=== PATIENT | female | born 1950 | race Caucasian/White ===

== ENCOUNTER → 2018-02-05 09:23 | Outpatient (CLI) | payer MEDICARE, MEDICAID, SELFPAY ==
[2018-02-05 10:15] LABS: Abs Immature Grans 0.02 k/cumm (0.0-0.09); Absolute Basophil Count 0.06 k/cumm (0.0-0.2); Absolute Eosinophil Count 0.42 k/cumm (0.0-0.7); Absolute Lymphocyte Count 2.98 k/cumm (1.2-3.4); Absolute Monocyte Count 0.66 k/cumm (0.11-0.7); Absolute Neutrophil Count 7.72 k/cumm (1.2-6.7); Basophils % 0.5; Eosinophils % 3.5; HCT 40.1 % (36.0-46.0); HGB 12.9 g/dL (12.0-15.5); Immature Grans % 0.2; Lymphocytes % 25.1; Mean Corp. HGB Concentration 32.2 g/dL (32.0-36.0); Mean Corpuscular Hemoglobin 25.7 pg (27.0-33.0); Mean Corpuscular Volume 79.9 fL (80-95); Mean Platelet Volume 9.9 fL (8.0-11.0); Monocytes % 5.6; Neutrophils % 65.1; Platelet Count 277 x1000/uL (130-400); RBC 5.02 m/cumm (4.00-5.20); RBC Distribution Width 15.3 % (11.7-14.6); White Blood Cell Count 11.86 k/cumm (4.4-10.8)
[2018-02-05 10:45] LABS: C-Reactive Protein 0.45 mg/dL (0.0-0.3)
[2018-02-05 11:08] LABS: ESR 18 MM/HR (0-30)
== END ==
PROVIDERS: PCP Nurse Practitioner Family; Visit Provider Orthopaedic Surgery
DX: T84.84XA Pain due to internal orthopedic prosthetic devices, implants and grafts, initial encounter (principal); M25.562 Pain in left knee; Z96.652 Presence of left artificial knee joint
CPT/HCPCS: 36415; 85652; 99214; 85025; 86140

== ENCOUNTER → 2018-02-05 10:30 | Outpatient (CLI) | payer MEDICARE, MEDICAID, SELFPAY | PROVIDERS: PCP Nurse Practitioner Family; Visit Provider Orthopaedic Surgery | DX: T84.84XA Pain due to internal orthopedic prosthetic devices, implants and grafts, initial encounter (principal); M25.562 Pain in left knee; Z96.652 Presence of left artificial knee joint ==

== ENCOUNTER → 2018-02-21 01:06 | Outpatient (CLI) | payer MEDICARE, MEDICAID, SELFPAY ==
--- NOTE | 2018-02-21 09:00 | DI.REPORT_ITS ---
SYMPTOMS/DIAGNOSIS: PAINFUL LT TKR 3 PHASE BONE SCAN: Three phase bone scan was performed according to the usual protocol with injection of 25.6 millicuries of Technetium 99 labeled Methylene Diphosphonate. Flow, immediate and delayed images were obtained of the knees along with whole body delayed scan. The whole body delayed scan shows a small focal area of increased uptake associated with the mid cervical spine on the left laterally and this appears to correspond with prominent osteophyte formations at this site seen on chest radiograph of 10/10/17. No other significantly increased uptake in the bones apart from the region of the left knee. Flow images of the knees are unremarkable. Immediate images show some asymmetry of uptake in left knee as compared to the right. The patient has reportedly a painful TKR on the left. Delayed images show increased uptake in the femur, patella and tibia which may be slightly more prominent than is typically seen with a long standing TKR. However I would note that increased uptake of this intensity could be seen in a normal joint replacement. CONCLUSION: Indeterminate findings involving questioned mildly increased uptake associated with left TKR. No suspicious remote findings.
== END ==
PROVIDERS: PCP Nurse Practitioner Family; Visit Provider Orthopaedic Surgery
DX: M25.562 Pain in left knee (principal); Z96.652 Presence of left artificial knee joint
CPT/HCPCS: 78315

== ENCOUNTER → 2018-02-26 09:15 | Outpatient (CLI) | payer MEDICARE, MEDICAID, SELFPAY | PROVIDERS: PCP Nurse Practitioner Family; Visit Provider Orthopaedic Surgery | DX: T84.84XD Pain due to internal orthopedic prosthetic devices, implants and grafts, subsequent encounter (principal); Z96.652 Presence of left artificial knee joint | CPT/HCPCS: 99213 ==

== ENCOUNTER 2018-03-24 11:56 | Emergency (ER) | payer MEDICARE, MEDICAID, SELFPAY ==
[2018-03-24] VITALS (7 sets, daily range): BP systolic 124–130; BP diastolic 58–96; PULSE 86–99; RESP 8–22; TEMP 36.1; O2SAT 97–100
--- NOTE | 2018-03-24 12:00 | DI.RAD_ITS ---
SYMPTOM/DIAGNOSIS: SOB PA AND LATERAL CHEST: Comparison is made with 10/10/17. Heart size and pulmonary vasculature are within normal limits. The lungs are clear. No effusions or pneumothoraces are identified. Degenerative changes are seen in the spine. IMPRESSION: No acute pulmonary process.
--- NOTE | 2018-03-24 12:02 | W.ED.GENAD ---
Discharge Plan Disposition Patient Disposition: HOME Condition: Improving Discharge Details Chief Complaint: SOB Clinical Impression: Mild shortness of breath Primary Care Provider: Breanna Roque ED Provider: Modesto Yanes Home Meds and New Rx's Prescriptions: Continue glyburide-metformin 1 EACH tablet 500 tab-cap PO BID RF: 0 albuterol sulfate [ProAir HFA] 8.5 GM HFA aerosol inhaler 1 puff Inhalation Q4H PRN RF: 0 cyanocobalamin (vitamin B-12) [Vitamin B-12] 500 MCG tablet extended release 500 mcg PO DAILY RF: 0 lisinopril 40 MG tablet 40 mg PO DAILY RF: 0 glucosamine sulfate 2KCl 1,000 MG tablet 500 mg PO DAILY RF: 0 calcium carbonate-vitamin D3 1 EACH tablet 1 ea PO BID RF: 0 No Action quetiapine 100 MG tablet 100 mg PO DAILY RF: 0 pantoprazole 40 MG tablet,delayed release (DR/EC) 40 mg PO DAILY RF: 0 simvastatin 40 MG tablet 40 mg PO HS RF: 0 naproxen sodium [Aleve] 220 mg Capsule 2 tab PO PRN PRNRF: 0 Discharge Instructions Instructions: Dyspnea (ED) Additional Instructions: Return if you develop a fever, productive cough, or any other concerns. Continue regular medications. Home to rest today. Please follow-up with regular doctor this week if you have recurrent symptoms Medical Decision Making 59-year-old female with previous history of use of bronchodilators, presents with shortness of breath over hours time today. It is not associated with chest pain, fever, cough. She has otherwise recently been well. She is mildly anxious on initial presentation. Vital signs are unremarkable with normal oxygenation and she is speaking in full sentences IV placed, screening labs, chest x-ray, EKG obtained. Patient given DuoNeb updraft. Patient's chest x-ray is without acute findings Labs reveal chronically elevated white blood cell count, today 12. Her chemistries are unrevealing, she has unremarkable troponin and BNP. She is slightly hypomagnesemic at 1.5. Improved in the emergency department, no signs of active ongoing illness, she will benefit from oral supplementation of her low magnesium. Appropriate for discharge to home, stable and improved. ECG Data Attestation: I personally reviewed and interpreted this ECG (s) as follows: Interpretation: Normal sinus rhythm, the rate is 90, QRS is narrow, no ST segment elevation, low voltage HPI General Mode of arrival: EMS. Date/Time Provider Initiated Documentation: 03/24/18 12:11. Limitations to Documentation: no limitations. Information obtained by: patient and EMS. History of Present Illness 67 year old F presents to the emergency department with the chief complaint of Shortness of breath, described as moderate, Quality is described as constant, and is localized to the chest. Patient started experiencing this hour(s) and it has been constant. No relieving factors improve symptom(s), No exacerbating factors reported . Patient notes no other symptoms.; denies chest pain, cough, diaphoresis and nausea/vomiting. Patient did receive the following treatments prior to arrival, none HPI Narrative: 59-year-old female complains of hours of constant shortness of breath that began gradually early this morning. She denies any associated cough or fever. She denies chest pain. She was brought via EMS with an IV placement but no other interventions Related Data Home Medications Medication Instructions Recorded Confirmed cyanocobalamin (vitamin B-12) 500 mcg PO DAILY 02/20/13 03/24/18 [Vitamin B-12] glucosamine sulfate 2KCl 500 mg PO DAILY 02/20/13 03/24/18 lisinopril 40 mg PO DAILY 02/20/13 03/24/18 pantoprazole 40 mg PO DAILY 02/20/13 11/08/17 albuterol sulfate [ProAir HFA] 1 puff INHALATION Q4H PRN inhaler 09/22/16 03/24/18 glyburide-metformin 500 tab-cap PO BID tab-cap 09/22/16 03/24/18 quetiapine 100 mg PO DAILY 09/22/16 11/08/17 calcium carbonate-vitamin D3 1 ea PO BID 10/10/17 03/24/18 simvastatin 40 mg PO HS 10/10/17 03/24/18 naproxen sodium [Aleve] 2 tab PO PRN PRN 03/24/18 03/24/18 Allergies Allergy/AdvReac Type Severity Reaction Status Date / Time thiopental sodium Allergy Skin Rash Unverified 03/24/18 13:22 [From Pentothal] Review of Systems Review of Systems 8 systems reviewed and otherwise negative [facility] Medical History Diverticulitis of large intestine Restless legs Social History Smoking/Tobacco Use Status: Former Tobacco Use Surgical History bladder suspension for incontinence Abdominal hysterectomy (~1979) Arthroplasty of knee Cholecystectomy Extraction of cataract Oophrectomy, Both (04/09/13) Exam Narrative Exam Narrative: GEN: awake, alert, oriented 3. Pleasant, well groomed, interactive, mildly anxious. HEAD: Normocephalic, atraumatic ENT: Mucous membranes moist, oropharynx unremarkable, External ear exam unremarkable EYES: PERRL, EOMI NECK: Full ROM, no GALLO, no menigismus CHEST/RESP: Nontender, intermittent to auscultation bilateral, no rhonchi/rales CARDIOVASCULAR: RRR, no murmur, rub yusuf. 2+ Rad pulse bilateral ABDOMEN: Soft, nontender, no mass. +Bowel sounds EXT: Full ROM, no edema, no rash Neuro: Grossly normal neurologic exam, conversant, interactive. Psych: Speech fluent, thoughts congruent, affect mildly anxious
--- NOTE | 2018-03-24 12:05 | ED.GENADUL_ITS ---
Discharge Plan Disposition Patient Disposition: HOME Condition: Improving Discharge Details Chief Complaint: SOB Clinical Impression: Mild shortness of breath Primary Care Provider: Breanna Roque ED Provider: Modesto Yanes Home Meds and New Rx's Prescriptions: Continue glyburide-metformin 1 EACH tablet 500 tab-cap PO BID RF: 0 albuterol sulfate [ProAir HFA] 8.5 GM HFA aerosol inhaler 1 puff Inhalation Q4H PRN RF: 0 cyanocobalamin (vitamin B-12) [Vitamin B-12] 500 MCG tablet extended release 500 mcg PO DAILY RF: 0 lisinopril 40 MG tablet 40 mg PO DAILY RF: 0 glucosamine sulfate 2KCl 1,000 MG tablet 500 mg PO DAILY RF: 0 calcium carbonate-vitamin D3 1 EACH tablet 1 ea PO BID RF: 0 No Action quetiapine 100 MG tablet 100 mg PO DAILY RF: 0 pantoprazole 40 MG tablet,delayed release (DR/EC) 40 mg PO DAILY RF: 0 simvastatin 40 MG tablet 40 mg PO HS RF: 0 naproxen sodium [Aleve] 220 mg Capsule 2 tab PO PRN PRNRF: 0 Discharge Instructions Instructions: Dyspnea (ED) Additional Instructions: Return if you develop a fever, productive cough, or any other concerns. Continue regular medications. Home to rest today. Please follow-up with regular doctor this week if you have recurrent symptoms Medical Decision Making 59-year-old female with previous history of use of bronchodilators, presents with shortness of breath over hours time today. It is not associated with chest pain, fever, cough. She has otherwise recently been well. She is mildly anxious on initial presentation. Vital signs are unremarkable with normal oxygenation and she is speaking in full sentences IV placed, screening labs, chest x-ray, EKG obtained. Patient given DuoNeb updraft. Patient's chest x-ray is without acute findings Labs reveal chronically elevated white blood cell count, today 12. Her chemistries are unrevealing, she has unremarkable troponin and BNP. She is slightly hypomagnesemic at 1.5. Improved in the emergency department, no signs of active ongoing illness, she will benefit from oral supplementation of her low magnesium. Appropriate for discharge to home, stable and improved. ECG Data Attestation: I personally reviewed and interpreted this ECG (s) as follows: Interpretation: Normal sinus rhythm, the rate is 90, QRS is narrow, no ST segment elevation, low voltage HPI General Mode of arrival: EMS . Date/Time Provider Initiated Documentation: 03/24/18 12:11 . Limitations to Documentation: no limitations . Information obtained by: patient and EMS . History of Present Illness 67 year old F presents to the emergency department with the chief complaint of Shortness of breath, described as moderate, Quality is described as constant , and is localized to the chest. Patient started experiencing this hour(s) and it has been constant. No relieving factors improve symptom(s), No exacerbating factors reported . Patient notes no other symptoms.; denies chest pain, cough, diaphoresis and nausea/vomiting. Patient did receive the following treatments prior to arrival, none HPI Narrative: 59-year-old female complains of hours of constant shortness of breath that began gradually early this morning. She denies any associated cough or fever. She denies chest pain. She was brought via EMS with an IV placement but no other interventions Related Data Home Medications Medication Instructions Recorded Confirmed cyanocobalamin (vitamin B-12) 500 mcg PO DAILY 02/20/13 03/24/18 [Vitamin B-12] glucosamine sulfate 2KCl 500 mg PO DAILY 02/20/13 03/24/18 lisinopril 40 mg PO DAILY 02/20/13 03/24/18 pantoprazole 40 mg PO DAILY 02/20/13 11/08/17 albuterol sulfate [ProAir HFA] 1 puff INHALATION Q4H PRN inhaler 09/22/1603/24 glyburide-metformin 500 tab-cap PO BID tab-cap 09/22/16 03/24/18 quetiapine 100 mg PO DAILY 09/22/16 11/08/17 calcium carbonate-vitamin D3 1 ea PO BID 10/10/17 03/24/18 simvastatin 40 mg PO HS 10/10/17 03/24/18 naproxen sodium [Aleve] 2 tab PO PRN PRN 03/24/18 03/24/18 Allergies Allergy/AdvReac Type Severity Reaction Status Date / Time thiopental sodium Allergy Skin Rash Unverified 03/24/18 13:22 [From Pentothal] Review of Systems Review of Systems 8 systems reviewed and otherwise negative [facility] Medical History Diverticulitis of large intestine Restless legs Social History Smoking/Tobacco Use Status: Former Tobacco Use Surgical History bladder suspension for incontinence Abdominal hysterectomy (~1979) Arthroplasty of knee Cholecystectomy Extraction of cataract Oophrectomy, Both (04/09/13) Exam Narrative Exam Narrative: GEN: awake, alert, oriented 3. Pleasant, well groomed, interactive, mildly anxious. HEAD: Normocephalic, atraumatic ENT: Mucous membranes moist, oropharynx unremarkable, External ear exam unremarkable EYES: PERRL, EOMI NECK: Full ROM, no GALLO, no menigismus CHEST/RESP: Nontender, intermittent to auscultation bilateral, no rhonchi/rales CARDIOVASCULAR: RRR, no murmur, rub yusuf. 2+ Rad pulse bilateral ABDOMEN: Soft, nontender, no mass. +Bowel sounds EXT: Full ROM, no edema, no rash Neuro: Grossly normal neurologic exam, conversant, interactive. Psych: Speech fluent, thoughts congruent, affect mildly anxious
[2018-03-24] MEDS: Albuterol/Ipratropium 3 ML UPD VIAL UPD (12:11)
[2018-03-24 12:29] LABS: Abs Immature Grans 0.04 k/cumm (0.0-0.09); Absolute Basophil Count 0.03 k/cumm (0.0-0.2); Absolute Eosinophil Count 0.15 k/cumm (0.0-0.7); Absolute Lymphocyte Count 2.48 k/cumm (1.2-3.4); Absolute Monocyte Count 0.68 k/cumm (0.11-0.7); Absolute Neutrophil Count 9.41 k/cumm (1.2-6.7); Basophils % 0.2; Eosinophils % 1.2; HCT 35.2 % (36.0-46.0); HGB 11.2 g/dL (12.0-15.5); Immature Grans % 0.3; Lymphocytes % 19.4; Mean Corp. HGB Concentration 31.8 g/dL (32.0-36.0); Mean Corpuscular Hemoglobin 25.5 pg (27.0-33.0); Mean Platelet Volume 9.8 fL (8.0-11.0); Monocytes % 5.3; Neutrophils % 73.6; Platelet Count 246 x1000/uL (130-400); White Blood Cell Count 12.78 k/cumm (4.4-10.8)
[2018-03-24 13:00] LABS: ALT 20 U/L (12-78); AST 15 U/L (15-37); Albumin 3.7 g/dL (3.4-5.0); Alkaline Phosphatase 86 U/L (46-116); Anion Gap 11.4 mmol/L (3-11); BUN 17 mg/dL (7-18); Bilirubin, Total 0.3 mg/dL (0.2-1.0); CO2 25.6 mmol/L (21.0-32.0); CREATININE 0.78 mg/dL (0.55-1.02); Calcium 8.8 mg/dL (8.5-10.1); Chloride 105 mmol/L (98-107); Glucose 96 mg/dL (70-100); Magnesium 1.5 mg/dL (1.8-2.4); NT-proBNP 117 pg/mL; Potassium 3.8 mmol/L (3.5-5.1); Sodium 142 mmol/L (136-145); Total Protein 6.8 g/dL (6.4-8.2)
[2018-03-24 13:03] LABS: Troponin I < 0.02 ng/mL (0.00-0.06)
[2018-03-24] MEDS: Magnesium Oxide 400 MG TAB PO (13:21)
--- NOTE | 2018-03-24 13:21 | DI.VRAD_ITS ---
EXAM: XR Chest, 2 Views EXAM DATE/TIME: 03/24/2018 12:02 PM CLINICAL HISTORY: 67 years old, female; Signs and symptoms; Shortness of breath; Patient HX: SOB TECHNIQUE: XR of the chest, 2 views. COMPARISON: CR CHEST 2 VIEWS PA,LAT 10/10/2017 10:59 PM FINDINGS: Lungs: Unremarkable. No consolidation. Pleural space: Unremarkable. No pleural effusion. No pneumothorax. Heart/Mediastinum: Unremarkable. No cardiomegaly. Bones/joints: Degenerative changes in the thoracic spine IMPRESSION: No acute process Dictated and Authenticated by: Alex Yang MD. Ordering:HELADIO HO MD
== END 2018-03-24 13:34 | disposition home or self-care (01) ==
PROVIDERS: Emergency Provider Emergency Medicine; PCP Nurse Practitioner Family
DX: R06.02 Shortness of breath (principal); E83.42 Hypomagnesemia
CPT/HCPCS: 36415; 80053; 93005; 94640; 99284; 71046; 81003; 83735; 83880; 84484; 85025; 93010; J7620

== ENCOUNTER 2018-04-15 11:11 | Outpatient (REF) | payer MEDICARE, MEDICAID, SELFPAY ==
[2018-04-15 19:04] LABS: Hemoglobin A1C 6.8 % (4.5-6.2)
== END 2018-04-15 11:31 ==
LOC: NCHCN 11:11
PROVIDERS: PCP Nurse Practitioner Family; Visit Provider Nurse Practitioner Family
DX: E11.9 Type 2 diabetes mellitus without complications (principal)
CPT/HCPCS: 83036

== ENCOUNTER 2018-04-22 15:17 | Outpatient (REF) | payer MEDICARE, MEDICAID, SELFPAY ==
[2018-04-22 18:23] LABS: Magnesium 1.6 mg/dL (1.8-2.4)
[2018-04-22 18:33] LABS: Abs Immature Grans 0.03 k/cumm (0.0-0.09); Absolute Basophil Count 0.04 k/cumm (0.0-0.2); Absolute Eosinophil Count 0.24 k/cumm (0.0-0.7); Absolute Lymphocyte Count 3.15 k/cumm (1.2-3.4); Absolute Monocyte Count 0.68 k/cumm (0.11-0.7); Absolute Neutrophil Count 6.76 k/cumm (1.2-6.7); Basophils % 0.4; Eosinophils % 2.2; HCT 37.9 % (36.0-46.0); HGB 12.2 g/dL (12.0-15.5); Immature Grans % 0.3; Lymphocytes % 28.9; Mean Corp. HGB Concentration 32.2 g/dL (32.0-36.0); Mean Corpuscular Hemoglobin 25.6 pg (27.0-33.0); Mean Corpuscular Volume 79.6 fL (80-95); Mean Platelet Volume 10.3 fL (8.0-11.0); Monocytes % 6.2; Platelet Count 270 x1000/uL (130-400); RBC 4.76 m/cumm (4.00-5.20); RBC Distribution Width 14.9 % (11.7-14.6)
== END 2018-04-22 15:37 ==
LOC: NCHCN 15:17
PROVIDERS: PCP Nurse Practitioner Family; Visit Provider Nurse Practitioner Family
DX: E83.42 Hypomagnesemia (principal); D64.9 Anemia, unspecified; D72.829 Elevated white blood cell count, unspecified
CPT/HCPCS: 83735; 85025

== ENCOUNTER 2018-06-02 03:46 | Emergency (ER) | payer MEDICARE, MEDICAID, SELFPAY ==
[2018-06-02] VITALS (12 sets, daily range): BP systolic 113–158; BP diastolic 59–96; PULSE 75–84; RESP 1–26; TEMP 36.9; O2SAT 94–100
--- NOTE | 2018-06-02 04:02 | DI.COMBO_ITS ---
SYMPTOM/DIAGNOSIS: SOB PE CHEST CTA: CT angiography was performed with multi slice acquisition and multi planar and 3D reconstruction. CT scan of the chest was performed according to the pulmonary embolus protocol. There is no evidence of a pulmonary embolus. The thoracic aorta is of normal caliber. No aneurysmal dilatation or dissection is present. Heart size is within normal limits. No significant pericardial effusion is seen. No evidence of right ventricular dysfunction is present. No significant mediastinal, hilar or axillary adenopathy is present. No pleural effusion or pneumothorax is identified. The lungs are clear. The tracheobronchial tree is unremarkable. Upper abdominal images show patient is status post cholecystectomy. Left renal cyst is noted. Degenerative changes are seen in the spine. IMPRESSION: No evidence of an acute pulmonary embolus, thoracic aortic dissection or aneurysm. PA AND LATERAL CHEST: Comparison is made with 03/24/18. The heart is normal in size. The lungs are clear. The mediastinal structures and pleura appear intact. CONCLUSION: Normal chest.
--- NOTE | 2018-06-02 04:04 | W.ED.GENAD ---
Discharge Plan Disposition Patient Disposition: HOME Condition: Good Discharge Details Chief Complaint: RespSymp Clinical Impression: Dyspnea Primary Care Provider: Breanna Roque ED Provider: Benson Harper Home Meds and New Rx's Prescriptions: Continue quetiapine 100 MG tablet 100 mg PO DAILY RF: 0 glyburide-metformin 1 EACH tablet 500 tab-cap PO BID RF: 0 albuterol sulfate [ProAir HFA] 8.5 GM HFA aerosol inhaler 1 puff Inhalation Q4H PRN RF: 0 cyanocobalamin (vitamin B-12) [Vitamin B-12] 500 MCG tablet extended release 500 mcg PO DAILY RF: 0 pantoprazole 40 MG tablet,delayed release (DR/EC) 40 mg PO DAILY RF: 0 lisinopril 40 MG tablet 40 mg PO DAILY RF: 0 glucosamine sulfate 2KCl 1,000 MG tablet 500 mg PO DAILY RF: 0 simvastatin 40 MG tablet 40 mg PO HS RF: 0 calcium carbonate-vitamin D3 1 EACH tablet 1 ea PO BID RF: 0 naproxen sodium [Aleve] 220 mg Capsule 2 tab PO PRN PRNRF: 0 Discharge Instructions Instructions: Dyspnea (ED) Additional Instructions: Your workup tonight has been completely negative. There were no EKG changes. Laboratory studies are unremarkable and baseline. Chest x-ray and CT scan of the chest are negative. Your vital signs and oxygen saturation are normal. Please continue medications and use your inhaler as needed. Follow-up with your primary care next week if continued feeling of shortness of breath. Return to ED if you develop fever, chest pain, worsening shortness of breath, other concerns. Referrals: Breanna Roque [Primary Care Provider] - Medical Decision Making Patient presenting to ED with shortness of breath. Room air saturations are normal. She is a little hypertensive but otherwise vital signs are normal. Lungs are clear. She does have fairly pale conjunctiva. She also feels weak in the legs so anemia is a possibility. Doubt PE as she has no leg pain or swelling and no tachycardia but will check d-dimer. EKG is sinus rhythm at a rate of 80. There are no acute ST changes noted. Will place IV and get labs, follow-up on chest x-ray, reevaluate. 5 AM?patient continues to feel short of breath despite DuoNeb treatment. Workup so far negative. She is mildly anemic only and not anything worse than baseline. Troponin and BNP are negative. Chemistries and kidney function are normal. Age-adjusted d-dimer is negative. Chest x-ray is clear. As I have no other etiology for her complaint of shortness of breath despite a negative age-adjusted d-dimer I am going to proceed with CTA of the chest to rule out PE. 5:45 AM?CTA of the chest is negative. There is no PE, dissection, consolidation, effusion, or edema. Patient actually seems to be resting comfortably at this point. Workup has been negative. I do not think she needs a second troponin as she has had 8 hours of symptoms prior to coming in. At no point did she have chest pain. She is requesting coffee and breakfast before discharge. She can follow-up with primary care next week if continued feeling of shortness of breath. Lab Data Lab results reviewed: Yes I reviewed the patient's lab results. ECG Data Attestation: I personally reviewed and interpreted this ECG (s) as follows: Prior ECG tracings: available for review Interpretation: Sinus rhythm at a rate of 80. No acute ST changes noted. No change from previous from March of this year. HPI General Mode of arrival: EMS. Date/Time Provider Initiated Documentation: 06/02/18 03:55. Limitations to Documentation: no limitations. Information obtained by: patient and EMS. HPI Narrative: Patient presents to ED by EMS for evaluation of shortness of breath. Patient reports that it started while she was trying to put a bus together this evening. She has felt short of breath for the whole night and has not been able to sleep. She did try her inhalers with no help. She denies having any type of chest pain, pressure, tightness. She has no back pain. She has no pain with inspiration. She has had no fever or cough. She has no leg pain or swelling. Her legs feel weak to her. She has no abdominal pain, vomiting, diarrhea. She denies any black stool or bloody stool. Related Data Home Medications Medication Instructions Recorded Confirmed cyanocobalamin (vitamin B-12) 500 mcg PO DAILY 02/20/13 03/24/18 [Vitamin B-12] glucosamine sulfate 2KCl 500 mg PO DAILY 02/20/13 03/24/18 lisinopril 40 mg PO DAILY 02/20/13 03/24/18 pantoprazole 40 mg PO DAILY 02/20/13 11/08/17 albuterol sulfate [ProAir HFA] 1 puff INHALATION Q4H PRN inhaler 09/22/16 03/24/18 glyburide-metformin 500 tab-cap PO BID tab-cap 09/22/16 03/24/18 quetiapine 100 mg PO DAILY 09/22/16 11/08/17 calcium carbonate-vitamin D3 1 ea PO BID 10/10/17 03/24/18 simvastatin 40 mg PO HS 10/10/17 03/24/18 naproxen sodium [Aleve] 2 tab PO PRN PRN 03/24/18 03/24/18 Allergies Allergy/AdvReac Type Severity Reaction Status Date / Time thiopental sodium Allergy Skin Rash Unverified 06/02/18 03:57 [From Pentothal] General Stated Complaint: RespSymp LYNNETTE: 3 Review of Systems Constitutional Denies chills, Denies fever(s), Denies headache(s), Denies poor appetite and Reports weakness Eyes Denies change in vision and Denies eye pain ENT Denies otalgia, Denies facial pain, Denies headache(s), Denies nasal congestion, Denies sinus pain and Denies sore throat Cardiovascular Denies chest pain, Denies chest pain at rest, Denies diaphoresis, Denies syncope, Denies edema, Denies leg edema, Denies lightheadedness, Denies palpitations and Reports dyspnea Respiratory Denies chest congestion, Denies cough, Reports dyspnea and Denies wheezing Gastrointestinal Denies abdominal pain, Denies melena, Denies hematochezia, Denies diarrhea, Denies nausea, Denies vomiting and Denies hematemesis Genitourinary Denies hematuria, Denies dysuria, Denies pelvic pain and Denies flank pain Musculoskeletal Denies back pain, Denies arthralgias and Denies numbness Integumentary/Breasts Denies erythema and Denies rash Neurologic Denies syncope, Denies headache(s), Denies focal weakness, Denies numbness, Denies sensory deficit and Reports weakness Endocrine Denies palpitations Allergic/Immunologic Denies wheezing PFSH Asthma (Chronic) Diabetes mellitus (Chronic) HTN (hypertension) (Chronic) Hypercholesterolemia (Chronic) Diverticulitis of large intestine Restless legs bladder suspension for incontinence Abdominal hysterectomy (~1979) Arthroplasty of knee Cholecystectomy Extraction of cataract Oophrectomy, Both (04/09/13) Social History Smoking/Tobacco Use Status: Former Tobacco Use Exam Const General: cooperative, comfortable and no acute distress Orientation: alert and oriented x3 HENMT Head: normocephalic and atraumatic Mouth: moist mucous membranes Eyes Conjunctivae: conjunctival abnormality bilaterally pallor Neck Neck: normal visual inspection, trachea midline and supple Resp Effort & Inspection: normal respiratory effort Auscultation: clear to auscultation bilaterally Cardio Rate: regular rate Rhythm: regular rhythm Heart Sounds: S1 normal and S2 normal Pulses: radial pulses present GI Palpation: soft, not firm, no guarding and nontender Back/Spine/Pelvis Cervical Spine: cervical ROM normal Thoracic/Lumbar Spine: thoraco-lumbar ROM normal Skin General skin exam: no rashes or lesions noted Neuro General: alert, oriented x3, no focal motor deficits and CN's II-XI intact bilaterally Extrem General: normal to inspection, no clubbing, cyanosis or edema and no calf tenderness Course Vital Signs Temperature 98.4 F 06/02/18 03:46 Pulse 84 06/02/18 03:46 Respiratory Rate 24 06/02/18 03:46 Blood Pressure 158/59 H 06/02/18 03:46 Pulse Oximetry 100 06/02/18 03:46 Temperature 98.4 F 06/02/18 03:46 Temperature Source Temporal Artery Scan 06/02/18 03:46 Pulse 84 06/02/18 03:46 Respiratory Rate 24 06/02/18 03:46 Respiratory Effort Incrsd Work of Breathing 06/02/18 03:56 Respiratory Depth Shallow 06/02/18 03:56 Blood Pressure 158/59 H 06/02/18 03:46 Pulse Oximetry 100 06/02/18 03:46 Oxygen Delivery Method Room Air 06/02/18 03:46 Oxygen Flow Rate 0 06/02/18 03:46 Pain Level 0 06/02/18 03:46
--- NOTE | 2018-06-02 04:09 | ED.GENADUL_ITS ---
Discharge Plan Disposition Patient Disposition: HOME Condition: Good Discharge Details Chief Complaint: RespSymp Clinical Impression: Dyspnea Primary Care Provider: Breanna Roque ED Provider: Benson Harper Home Meds and New Rx's Prescriptions: Continue quetiapine 100 MG tablet 100 mg PO DAILY RF: 0 glyburide-metformin 1 EACH tablet 500 tab-cap PO BID RF: 0 albuterol sulfate [ProAir HFA] 8.5 GM HFA aerosol inhaler 1 puff Inhalation Q4H PRN RF: 0 cyanocobalamin (vitamin B-12) [Vitamin B-12] 500 MCG tablet extended release 500 mcg PO DAILY RF: 0 pantoprazole 40 MG tablet,delayed release (DR/EC) 40 mg PO DAILY RF: 0 lisinopril 40 MG tablet 40 mg PO DAILY RF: 0 glucosamine sulfate 2KCl 1,000 MG tablet 500 mg PO DAILY RF: 0 simvastatin 40 MG tablet 40 mg PO HS RF: 0 calcium carbonate-vitamin D3 1 EACH tablet 1 ea PO BID RF: 0 naproxen sodium [Aleve] 220 mg Capsule 2 tab PO PRN PRNRF: 0 Discharge Instructions Instructions: Dyspnea (ED) Additional Instructions: Your workup tonight has been completely negative. There were no EKG changes. Laboratory studies are unremarkable and baseline. Chest x-ray and CT scan of the chest are negative. Your vital signs and oxygen saturation are normal. Please continue medications and use your inhaler as needed. Follow-up with your primary care next week if continued feeling of shortness of breath. Return to ED if you develop fever, chest pain, worsening shortness of breath, other concerns. Referrals: Breanna Roque [Primary Care Provider] - Medical Decision Making Patient presenting to ED with shortness of breath. Room air saturations are normal. She is a little hypertensive but otherwise vital signs are normal. Lungs are clear. She does have fairly pale conjunctiva. She also feels weak in the legs so anemia is a possibility. Doubt PE as she has no leg pain or swelling and no tachycardia but will check d-dimer. EKG is sinus rhythm at a rate of 80. There are no acute ST changes noted. Will place IV and get labs, follow-up on chest x-ray, reevaluate. 5 AM?patient continues to feel short of breath despite DuoNeb treatment. Workup so far negative. She is mildly anemic only and not anything worse than baseline. Troponin and BNP are negative. Chemistries and kidney function are normal. Age-adjusted d-dimer is negative. Chest x-ray is clear. As I have no other etiology for her complaint of shortness of breath despite a negative age- adjusted d-dimer I am going to proceed with CTA of the chest to rule out PE. 5:45 AM?CTA of the chest is negative. There is no PE, dissection, consolidation , effusion, or edema. Patient actually seems to be resting comfortably at this point. Workup has been negative. I do not think she needs a second troponin as she has had 8 hours of symptoms prior to coming in. At no point did she have chest pain. She is requesting coffee and breakfast before discharge. She can follow-up with primary care next week if continued feeling of shortness of breath. Lab Data Lab results reviewed: Yes I reviewed the patient's lab results. ECG Data Attestation: I personally reviewed and interpreted this ECG (s) as follows: Prior ECG tracings: available for review Interpretation: Sinus rhythm at a rate of 80. No acute ST changes noted. No change from previous from March of this year. HPI General Mode of arrival: EMS . Date/Time Provider Initiated Documentation: 06/02/18 03:55 . Limitations to Documentation: no limitations . Information obtained by: patient and EMS . HPI Narrative: Patient presents to ED by EMS for evaluation of shortness of breath. Patient reports that it started while she was trying to put a bus together this evening. She has felt short of breath for the whole night and has not been able to sleep. She did try her inhalers with no help. She denies having any type of chest pain, pressure, tightness. She has no back pain. She has no pain with inspiration. She has had no fever or cough. She has no leg pain or swelling. Her legs feel weak to her. She has no abdominal pain, vomiting, diarrhea. She denies any black stool or bloody stool. Related Data Home Medications Medication Instructions Recorded Confirmed cyanocobalamin (vitamin B-12) 500 mcg PO DAILY 02/20/13 03/24/18 [Vitamin B-12] glucosamine sulfate 2KCl 500 mg PO DAILY 02/20/13 03/24/18 lisinopril 40 mg PO DAILY 02/20/13 03/24/18 pantoprazole 40 mg PO DAILY 02/20/13 11/08/17 albuterol sulfate [ProAir HFA] 1 puff INHALATION Q4H PRN inhaler 09/22/1603/24 glyburide-metformin 500 tab-cap PO BID tab-cap 09/22/16 03/24/18 quetiapine 100 mg PO DAILY 09/22/16 11/08/17 calcium carbonate-vitamin D3 1 ea PO BID 10/10/17 03/24/18 simvastatin 40 mg PO HS 10/10/17 03/24/18 naproxen sodium [Aleve] 2 tab PO PRN PRN 03/24/18 03/24/18 Allergies Allergy/AdvReac Type Severity Reaction Status Date / Time thiopental sodium Allergy Skin Rash Unverified 06/02/18 03:57 [From Pentothal] General Stated Complaint: RespSymp LYNNETTE: 3 Review of Systems Constitutional Denies chills, Denies fever(s), Denies headache(s), Denies poor appetite and Reports weakness Eyes Denies change in vision and Denies eye pain ENT Denies otalgia, Denies facial pain, Denies headache(s), Denies nasal congestion , Denies sinus pain and Denies sore throat Cardiovascular Denies chest pain, Denies chest pain at rest, Denies diaphoresis, Denies syncope , Denies edema, Denies leg edema, Denies lightheadedness, Denies palpitations and Reports dyspnea Respiratory Denies chest congestion, Denies cough, Reports dyspnea and Denies wheezing Gastrointestinal Denies abdominal pain, Denies melena, Denies hematochezia, Denies diarrhea, Denies nausea, Denies vomiting and Denies hematemesis Genitourinary Denies hematuria, Denies dysuria, Denies pelvic pain and Denies flank pain Musculoskeletal Denies back pain, Denies arthralgias and Denies numbness Integumentary/Breasts Denies erythema and Denies rash Neurologic Denies syncope, Denies headache(s), Denies focal weakness, Denies numbness, Denies sensory deficit and Reports weakness Endocrine Denies palpitations Allergic/Immunologic Denies wheezing PFSH Asthma (Chronic) Diabetes mellitus (Chronic) HTN (hypertension) (Chronic) Hypercholesterolemia (Chronic) Diverticulitis of large intestine Restless legs bladder suspension for incontinence Abdominal hysterectomy (~1979) Arthroplasty of knee Cholecystectomy Extraction of cataract Oophrectomy, Both (04/09/13) Social History Smoking/Tobacco Use Status: Former Tobacco Use Exam Const General: cooperative, comfortable and no acute distress Orientation: alert and oriented x3 HENMT Head: normocephalic and atraumatic Mouth: moist mucous membranes Eyes Conjunctivae: conjunctival abnormality bilaterally pallor Neck Neck: normal visual inspection, trachea midline and supple Resp Effort & Inspection: normal respiratory effort Auscultation: clear to auscultation bilaterally Cardio Rate: regular rate Rhythm: regular rhythm Heart Sounds: S1 normal and S2 normal Pulses: radial pulses present GI Palpation: soft, not firm, no guarding and nontender Back/Spine/Pelvis Cervical Spine: cervical ROM normal Thoracic/Lumbar Spine: thoraco-lumbar ROM normal Skin General skin exam: no rashes or lesions noted Neuro General: alert, oriented x3, no focal motor deficits and CN's II-XI intact bilaterally Extrem General: normal to inspection, no clubbing, cyanosis or edema and no calf tenderness Course Vital Signs Temperature 98.4 F 06/02/18 03:46 Pulse 84 06/02/18 03:46 Respiratory Rate 24 06/02/18 03:46 Blood Pressure 158/59 H 06/02/18 03:46 Pulse Oximetry 100 06/02/18 03:46 Temperature 98.4 F 06/02/18 03:46 Temperature Source Temporal Artery Scan 06/02/18 03:46 Pulse 84 06/02/18 03:46 Respiratory Rate 24 06/02/18 03:46 Respiratory Effort Incrsd Work of Breathing 06/02/18 03:56 Respiratory Depth Shallow 06/02/18 03:56 Blood Pressure 158/59 H 06/02/18 03:46 Pulse Oximetry 100 06/02/18 03:46 Oxygen Delivery Method Room Air 06/02/18 03:46 Oxygen Flow Rate 0 06/02/18 03:46 Pain Level 0 06/02/18 03:46
[2018-06-02 04:26] LABS: Abs Immature Grans 0.03 k/cumm (0.0-0.09); Absolute Basophil Count 0.05 k/cumm (0.0-0.2); Absolute Monocyte Count 0.77 k/cumm (0.11-0.7); Absolute Neutrophil Count 8.31 k/cumm (1.2-6.7); Basophils % 0.4; Eosinophils % 1.7; HCT 34.6 % (36.0-46.0); HGB 11.3 g/dL (12.0-15.5); Immature Grans % 0.3; Lymphocytes % 20.9; Mean Corp. HGB Concentration 32.7 g/dL (32.0-36.0); Mean Corpuscular Hemoglobin 25.9 pg (27.0-33.0); Mean Corpuscular Volume 79.4 fL (80-95); Mean Platelet Volume 9.6 fL (8.0-11.0); Monocytes % 6.5; Neutrophils % 70.2; Platelet Count 245 x1000/uL (130-400); RBC 4.36 m/cumm (4.00-5.20); RBC Distribution Width 14.5 % (11.7-14.6); White Blood Cell Count 11.84 k/cumm (4.4-10.8)
[2018-06-02 04:33] LABS: Absolute Lymphocyte Count 2.47 k/cumm (1.2-3.4)
[2018-06-02 04:41] LABS: ALT 21 U/L (12-78); AST 16 U/L (15-37); Albumin 3.8 g/dL (3.4-5.0); Alkaline Phosphatase 93 U/L (46-116); Anion Gap 11.7 mmol/L (3-11); BUN 17 mg/dL (7-18); Bilirubin, Total 0.3 mg/dL (0.2-1.0); CO2 26.3 mmol/L (21.0-32.0); Calcium 8.9 mg/dL (8.5-10.1); Chloride 103 mmol/L (98-107); Glucose 145 mg/dL (70-100); Magnesium 1.7 mg/dL (1.8-2.4); Potassium 3.7 mmol/L (3.5-5.1); Sodium 141 mmol/L (136-145); Total Protein 7.2 g/dL (6.4-8.2)
[2018-06-02 04:45] LABS: Troponin I < 0.02 ng/mL (0.00-0.06)
[2018-06-02] MEDS: Albuterol/Ipratropium 3 ML UPD VIAL UPD (04:45)
[2018-06-02 04:46] LABS: NT-proBNP 19 pg/mL
--- NOTE | 2018-06-02 04:56 | DI.VRAD_ITS ---
EXAM: XR Chest, 2 Views EXAM DATE/TIME: 06/02/2018 4:33 AM CLINICAL HISTORY: 67 years old, female; Pain; Other: SOB TECHNIQUE: XR of the chest, 2 views. COMPARISON: CR XR CHEST 2V PA LATERAL 03/24/2018 12:37 PM FINDINGS: Lungs: Clear lungs. Pleural space: No pneumothorax. No sizable pleural effusion. Heart/Mediastinum: No cardiomegaly. Bones/joints: Unremarkable. IMPRESSION: Clear lungs. Dictated and Authenticated by: Khang Long MD. Ordering:TARYN BARKSDALE MD
[2018-06-02 04:58] LABS: D-Dimer 660 ng/mlFEU (<500)
[2018-06-02] MEDS: Omnipaque 350 MG/ML 100 ML BTL IJ (05:18)
--- NOTE | 2018-06-02 05:32 | DI.VRAD_ITS ---
EXAM: CT Angiography Chest With Intravenous Contrast EXAM DATE/TIME: 06/02/2018 5:02 AM CLINICAL HISTORY: 67 years old, female; Pain; Other: Shortness of breath TECHNIQUE: Axial computed tomographic angiography images of the chest with intravenous contrast using CT angiography protocol. Coronal and sagittal reformatted images were created and reviewed. MIP reconstructed images were created and reviewed. CONTRAST: 100 ml of omni 350 administered intravenously. COMPARISON: CR XR CHEST 2V PA LATERAL 06/02/2018 4:22 AM FINDINGS: Pulmonary arteries: No acute pulmonary embolus. Aorta: No aortic aneurysm. No aortic dissection. Lungs: No consolidation. No masses. Pleural space: Normal. No pneumothorax. No pleural effusion. Heart: No cardiomegaly. No pathologic pericardial effusion. Gallbladder and bile ducts: Cholecystectomy. Lymph nodes: Unremarkable. No enlarged lymph nodes. Bones/joints: Multilevel degenerative changes of the thoracic spine. No acute fracture. Soft tissues: Unremarkable. IMPRESSION: No acute pulmonary embolus. Dictated and Authenticated by: Khang Long MD. Ordering:TARYN BARKSDALE MD
== END 2018-06-02 06:07 | disposition home or self-care (01) ==
PROVIDERS: Emergency Provider Emergency Medicine; PCP Nurse Practitioner Family
DX: R06.00 Dyspnea, unspecified (principal); E11.9 Type 2 diabetes mellitus without complications; Z79.84 Long term (current) use of oral hypoglycemic drugs; I10 Essential (primary) hypertension
CPT/HCPCS: 36415; 71275; 80053; 82805; 86850; 86900; 86901; 93005; 94640; 96374; 99284; 99285; 71046; 83735; 83880; 84484; 85025; 85379; 93010; 99283; J2930; J3490; J7620

== ENCOUNTER 2018-06-02 22:34 | Emergency (ER) | payer MEDICARE, MEDICAID, SELFPAY ==
[2018-06-02] VITALS (11 sets, daily range): BP systolic 143–152; BP diastolic 60–132; PULSE 79–100; RESP 11–25; TEMP 36; O2SAT 94–98
--- NOTE | 2018-06-02 22:47 | W.ED.GENAD ---
Discharge Plan Disposition Patient Disposition: HOME Condition: Good Discharge Details Chief Complaint: SOB Clinical Impression: Physically well but worried, SOB (shortness of breath) Reason For Visit: JONI Primary Care Provider: Breanna Roque ED Provider: Hal Olmstead Home Meds and New Rx's Prescriptions: No Action quetiapine 100 MG tablet 100 mg PO DAILY RF: 0 glyburide-metformin 1 EACH tablet 500 tab-cap PO BID RF: 0 albuterol sulfate [ProAir HFA] 8.5 GM HFA aerosol inhaler 1 puff Inhalation Q4H PRN RF: 0 cyanocobalamin (vitamin B-12) [Vitamin B-12] 500 MCG tablet extended release 500 mcg PO DAILY RF: 0 pantoprazole 40 MG tablet,delayed release (DR/EC) 40 mg PO DAILY RF: 0 lisinopril 40 MG tablet 40 mg PO DAILY RF: 0 glucosamine sulfate 2KCl 1,000 MG tablet 500 mg PO DAILY RF: 0 simvastatin 40 MG tablet 40 mg PO HS RF: 0 calcium carbonate-vitamin D3 1 EACH tablet 1 ea PO BID RF: 0 naproxen sodium [Aleve] 220 mg Capsule 2 tab PO PRN PRNRF: 0 Discharge Instructions Instructions: Dyspnea (ED) Additional Instructions: Please follow-up with Breanna Roque at your scheduled appointment this week. Please continue to take your inhaler every 4-6 hours. If you notice any worsening of your symptoms, or any new symptoms such as vomiting, diarrhea, fever, chills, shortness of breath, chest pain, numbness, weakness, or fainting , please return immediately to the emergency department for reevaluation. Please follow up with your primary care provider as soon as possible for reassessment and reevaluation. As always, it was a pleasure participating in your medical care today. Referrals: Breanna Roque [Primary Care Provider] - Medical Decision Making This is a 67-year-old female with a past medical history of asthma, who presents today for evaluation of subjective shortness of breath. She had an extremely thorough workup last night by my colleague Dr. Harper, which time she had negative CT angiogram of the chest, troponin, EKG, and laboratory workup. She was given a breathing treatment, had some improvement of her subjective symptoms. She continues to demonstrate normal vital signs during the entirety of her stay at that time and was eventually discharged home. Roughly 6 hours after discharge she began to feel the shortness of breath again. She waited an additional 6-12 hours, and then came in for evaluation after calling EMS. She denies any red flags of chest pain, numbness or tingling, neck or shoulder or arm pain. She denies any tearing sensation in her chest. She denies any risk factors for pulmonary embolism and she had a negative CT scan last night. Physical exam continues to demonstrate very normal vital signs with no signs of hypoxemia, tachypnea, tachycardia, or other abnormalities. Laboratory workup demonstrates normal VBG, no signs of CO2 retention, unchanged labs compared to last night, with a continued negative troponin well after 12 hours of the initial onset of her symptoms, no exertional symptoms, no exertional chest pain, benign EKG. I see no indication at this time for repeat imaging. We did do an ambulatory pulse ox for the patient and she showed no signs of hypoxemia, tachycardia, or signs of respiratory distress with ambulation or movement. Additionally we did a carbon monoxide testing on CO pulse oximetry and the patient demonstrated a normal level. With extremely reassuring vital signs, continued benign workup, I feel that her symptoms show no signs consistent with an emergent etiology. We did get the patient 1 breathing treatment here she does subjectively feel slightly better although initial and repeat lung sounds show no evidence of wheeze. I do feel that the patient can be safely discharged home with close follow-up at her already scheduled appointment in the next 36 hours with her primary care provider. Discussed red flags which to return the patient understands. I have extensively reviewed the treatment plan and discharge instructions with the patient. I have addressed all patient concerns at this time. The patient was made aware of what symptoms to monitor for that would warrant a return to the emergency department. Discussed the plan with the patient, they demonstrate verbal understanding and agreement with our assessment and plan at this time. EKG 22: 52 Rate 85, intervals normal, sinus rhythm, no ST elevations or depressions, no T wave inversions. No signs of right heart strain. No significant abnormalities HPI General Date/Time Provider Initiated Documentation: 06/02/18 22:37. HPI Narrative: This is a 67-year-old female with a past medical history of asthma,, high cholesterol, and diabetes with a past surgical history of a hysterectomy who presents today for evaluation of shortness of breath. She was seen and assessed here in the emergency department within the last 24 hours with symptoms of subjective shortness of breath. She demonstrated normal vital signs during her entirety of her stay. She had no significant associated symptoms of cough, hemoptysis, fever, chills, chest pain, arm pain or neck pain. Laboratory and imaging workup at that time demonstrated a negative age-adjusted d-dimer, benign laboratory workup, negative CT angiogram, negative troponin, negative EKG. She did receive a breathing treatment and stated that this helped her symptoms initially. She was eventually discharged home with a very reassuring vital signs and a benign workup. She states that she felt okay today as she was home however roughly 12 hours ago she stated that she started feeling short of breath again. She did take some of her home inhaler and stated that this improved her symptoms slightly. However because she felt that she still had some shortness of breath she did call EMS for further evaluation to be brought into the ER for further eval. Currently the patient continues to deny any chest pain, pleuritic chest pain, arm pain or neck pain, numbness, tingling, weakness, hemoptysis, fever, chills, vomiting or diarrhea. Denies PE risk factors such as recent long car rides, immobilization, recent surgery, prior history of DVT or PE, family history of PE or DVT, morbid obesity, exogenous estrogen and smoking, hemoptysis, history of cancer. She denies any history of cardiac disease, tobacco use, or other abnormalities. Related Data Home Medications Medication Instructions Recorded Confirmed cyanocobalamin (vitamin B-12) 500 mcg PO DAILY 02/20/13 06/02/18 [Vitamin B-12] glucosamine sulfate 2KCl 500 mg PO DAILY 02/20/13 06/02/18 lisinopril 40 mg PO DAILY 02/20/13 06/02/18 pantoprazole 40 mg PO DAILY 02/20/13 06/02/18 albuterol sulfate [ProAir HFA] 1 puff INHALATION Q4H PRN inhaler 09/22/16 03/24/18 glyburide-metformin 500 tab-cap PO BID tab-cap 09/22/16 06/02/18 quetiapine 100 mg PO DAILY 09/22/16 06/02/18 calcium carbonate-vitamin D3 1 ea PO BID 10/10/17 03/24/18 simvastatin 40 mg PO HS 10/10/17 06/02/18 naproxen sodium [Aleve] 2 tab PO PRN PRN 03/24/18 06/02/18 Allergies Allergy/AdvReac Type Severity Reaction Status Date / Time thiopental sodium Allergy Skin Rash Unverified 06/02/18 22:47 [From Pentothal] General Stated Complaint: Sorethroat LYNNETTE: 3 Review of Systems Review of Systems All systems reviewed & are unremarkable except as noted in HPI and below PFSH bladder suspension for incontinence Abdominal hysterectomy (~1979) Arthroplasty of knee Cholecystectomy Extraction of cataract Oophrectomy, Both (04/09/13) Social History Smoking/Tobacco Use Status: Former Tobacco Use Exam Narrative Exam Narrative: 1.Const: Well-nourished, Well-developed, appearing stated age 2.Eyes: PERRL, no conjunctival injection, and symmetrical lids. 3.ENT: Atraumatic external nose and ears. Moist MM. Neck: Symmetric, trachea midline, No thyromegaly. 4.CVS: +S1/S2, No murmurs or gallops. Peripheral pulses 2+ and equal in all extremities. Brisk capillary refill in all extremities. 5.RESP: Unlabored respiratory effort. Clear to auscultation bilaterally. No wheezes rales or rhonchi. No reproducible chest pain 6.GI: Soft, Nontender/Nondistended, No hepatosplenomegaly. No guarding or rebound. 7.MSK: Normocephalic/Atraumatic, Extremities w/o deformity or ttp No cyanosis or clubbing, Normal movement of all extremities, no calf tenderness 8.Skin: Warm, Dry. No rashes or lesions. 9.Neuro: complaint evaluation officer II-XII grossly intact. Sensation grossly intact, no focal neurologic deficits. 10.Psych: (AAO) x3. Appropriate mood and affect Course Vital Signs Temperature 36 C L 06/02/18 22:42 Pulse 86 06/02/18 22:42 Respiratory Rate 15 06/02/18 22:42 Blood Pressure 148/60 H 06/02/18 22:42 Pulse Oximetry 94 L 06/02/18 22:42 Temperature 36 C L 06/02/18 22:42 Temperature Source Temporal Artery Scan 06/02/18 22:42 Pulse 86 06/02/18 22:42 Respiratory Rate 15 06/02/18 22:42 Respiratory Effort 06/02/18 22:47 Blood Pressure 148/60 H 06/02/18 22:42 Pulse Oximetry 94 L 06/02/18 22:42 Oxygen Delivery Method Room Air 06/02/18 22:42 Oxygen Flow Rate 0 06/02/18 22:42 Pain Level 0 06/02/18 22:42
[2018-06-02 23:03] LABS: BE (Venous) 1.7 mmol/L (-3-3); HCO3 (Venous) 26 mmol/L (22-28); O2 Sat (Venous) 79 % (70-80); TCO2 (Venous) 24 mmol/L (22-29); pCO2 (Venous) 38 mm/Hg (34-47); pH (Venous) 7.44 (7.32-7.43); pO2 (Venous) 42 mm/Hg (28-44)
[2018-06-02] MEDS: methylPREDNISolone SUCC 125 MG VIAL IVP (23:08)
[2018-06-02 23:09] LABS: Abs Immature Grans 0.02 k/cumm (0.0-0.09); Absolute Basophil Count 0.05 k/cumm (0.0-0.2); Absolute Eosinophil Count 0.22 k/cumm (0.0-0.7); Absolute Lymphocyte Count 2.83 k/cumm (1.2-3.4); Absolute Monocyte Count 0.84 k/cumm (0.11-0.7); Basophils % 0.5; HGB 11.1 g/dL (12.0-15.5); Immature Grans % 0.2; Lymphocytes % 25.8; Mean Corp. HGB Concentration 32.6 g/dL (32.0-36.0); Mean Corpuscular Hemoglobin 25.9 pg (27.0-33.0); Mean Corpuscular Volume 79.4 fL (80-95); Mean Platelet Volume 9.5 fL (8.0-11.0); Monocytes % 7.7; Neutrophils % 63.8; Platelet Count 245 x1000/uL (130-400); RBC 4.28 m/cumm (4.00-5.20); RBC Distribution Width 14.8 % (11.7-14.6); White Blood Cell Count 10.97 k/cumm (4.4-10.8)
[2018-06-02] MEDS: Albuterol/Ipratropium 3 ML UPD VIAL UPD (23:12)
[2018-06-02 23:22] LABS: ALT 21 U/L (12-78); AST 14 U/L (15-37); Albumin 3.7 g/dL (3.4-5.0); Alkaline Phosphatase 87 U/L (46-116); Anion Gap 11.3 mmol/L (3-11); BUN 15 mg/dL (7-18); Bilirubin, Total 0.3 mg/dL (0.2-1.0); CO2 26.7 mmol/L (21.0-32.0); CREATININE 0.67 mg/dL (0.55-1.02); Calcium 8.9 mg/dL (8.5-10.1); Chloride 105 mmol/L (98-107); Glucose 112 mg/dL (70-100); Potassium 3.2 mmol/L (3.5-5.1); Sodium 143 mmol/L (136-145)
[2018-06-02 23:26] LABS: Troponin I < 0.02 ng/mL (0.00-0.06)
[2018-06-03 01:27] VITALS: BP 149/76; PULSE 70; RESP 15; TEMP 36.5; O2SAT 98
== END 2018-06-03 03:46 | disposition home or self-care (01) ==
LOC: ER 06-03 01:21
PROVIDERS: Emergency Provider Student in an Organized Health Care Education/Training Program; PCP Nurse Practitioner Family
DX: R06.02 Shortness of breath (principal); J45.909 Unspecified asthma, uncomplicated
CPT/HCPCS: 80053; 82805; 84484; 85025; J2930; J7620

== ENCOUNTER 2018-06-21 04:18 | Emergency (ER) | payer MEDICARE, MEDICAID, SELFPAY ==
[2018-06-21 04:18] VITALS: BP 132/53; PULSE 84; RESP 20; TEMP 37.1; O2SAT 97
--- NOTE | 2018-06-21 04:34 | W.ED.GENAD ---
Discharge Plan Disposition Patient Disposition: HOME Condition: Good Discharge Details Chief Complaint: RespSymp Clinical Impression: URI with cough and congestion Reason For Visit: JONI Primary Care Provider: Breanna Roque ED Provider: Benson Harper Home Meds and New Rx's Prescriptions: Continued quetiapine 100 MG tablet 100 mg PO DAILY RF: 0 glyburide-metformin 1 EACH tablet 500 tab-cap PO BID RF: 0 ProAir HFA 8.5 GM HFA aerosol inhaler 1 puff Inhalation Q4H PRN RF: 0 Vitamin B-12 500 MCG tablet extended release 500 mcg PO DAILY RF: 0 pantoprazole 40 MG tablet,delayed release (DR/EC) 40 mg PO DAILY RF: 0 lisinopril 40 MG tablet 40 mg PO DAILY RF: 0 glucosamine sulfate 2KCl 1,000 MG tablet 500 mg PO DAILY RF: 0 simvastatin 40 MG tablet 40 mg PO HS RF: 0 calcium carbonate-vitamin D3 1 EACH tablet 1 ea PO BID RF: 0 naproxen sodium [Aleve] 220 mg Capsule 2 tab PO PRN PRNRF: 0 Discharge Instructions Instructions: Upper Respiratory Infection (ED) Additional Instructions: Continue to use your inhalers to help with your cough and wheezing. Follow-up with primary care next week if not doing better. Return to ED for persistent difficulty breathing, chest pain, vomiting, other problems. Referrals: Breanna Roque [Primary Care Provider] - Medical Decision Making Patient came in because of cough and wheezing. She did use her inhaler. She is not wheezing currently. She is afebrile. Her saturations are normal. She does have a lot of nasal congestion. She does have a cough. Most likely URI. She does not have body aches, malaise, fever so not likely influenza. She has had symptoms for a week. I will get a chest x-ray to rule out pneumonia. If negative discharge home with continued supportive therapy. Patient's chest x-ray is unremarkable per preliminary radiology read. Patient to be discharged home to continue her inhalers as needed. Follow-up with primary care next week if needed. Return to ED for persistent difficulty breathing, chest pain, vomiting, other concerns. HPI General Mode of arrival: EMS. Date/Time Provider Initiated Documentation: 06/21/18 04:32. Limitations to Documentation: no limitations. Information obtained by: patient. HPI Narrative: Patient presents to ED with complaint of cough and wheezing. Patient reports that she has been sick for about a week with congestion, runny nose, cough. She has had no fever. She denies any type of pain. She denies headache, earache, sore throat, chest pain. She reports waking up this morning with wheezing and rattling in her chest. She did use her inhaler. She called an ambulance and was brought in for evaluation. She denies feeling short of breath. Related Data Home Medications Medication Instructions Recorded Confirmed Vitamin B-12 500 mcg PO DAILY 02/20/13 06/21/18 glucosamine sulfate 2KCl 500 mg PO DAILY 02/20/13 06/21/18 lisinopril 40 mg PO DAILY 02/20/13 06/21/18 pantoprazole 40 mg PO DAILY 02/20/13 06/21/18 ProAir HFA 1 puff INHALATION Q4H PRN inhaler 09/22/16 06/21/18 glyburide-metformin 500 tab-cap PO BID tab-cap 09/22/16 06/21/18 quetiapine 100 mg PO DAILY 09/22/16 06/21/18 calcium carbonate-vitamin D3 1 ea PO BID 10/10/17 06/21/18 simvastatin 40 mg PO HS 10/10/17 06/21/18 naproxen sodium [Aleve] 2 tab PO PRN PRN 03/24/18 06/21/18 Allergies Allergy/AdvReac Type Severity Reaction Status Date / Time thiopental sodium Allergy Skin Rash Unverified 06/21/18 04:22 [From Pentothal] General Stated Complaint: RespSymp LYNNETTE: 4 Review of Systems Constitutional Denies chills, Denies fever(s), Denies headache(s), Denies malaise and Denies weakness Eyes Denies change in vision, Denies eye discharge and Denies eye pain ENT Denies otalgia, Denies facial pain, Denies headache(s), Reports nasal congestion, Reports nasal discharge, Denies neck pain, Reports sinus pressure and Denies sore throat Cardiovascular Denies chest pain, Denies syncope, Denies palpitations and Reports dyspnea (occasionallly) Respiratory Reports cough, Reports dyspnea (occasionallly) and Reports wheezing Gastrointestinal Denies abdominal pain, Denies nausea and Denies vomiting Musculoskeletal Denies back pain, Denies myalgias, Denies neck pain, Denies numbness and Denies tingling Neurologic Denies syncope, Denies headache(s), Denies focal weakness, Denies numbness, Denies tingling and Denies weakness Endocrine Denies palpitations Allergic/Immunologic Reports wheezing [facility] Surgical History bladder suspension for incontinence Abdominal hysterectomy (~1979) Arthroplasty of knee Cholecystectomy Extraction of cataract Oophrectomy, Both (04/09/13) Social History Smoking/Tobacco Use Status: Former Tobacco Use Exam Const General: cooperative, comfortable and no acute distress Orientation: alert and oriented x3 HENMT Head: normocephalic and atraumatic General nose exam: no nasal discharge Face and sinus: normal facial exam and sinuses nontender Mouth: oropharynx normal Throat: posterior oropharynx normal Neck Neck: trachea midline and supple Resp Effort & Inspection: normal respiratory effort Auscultation: clear to auscultation bilaterally, lung sounds not diminished, no rales, no rhonchi and no wheezes Cardio Rate: regular rate Rhythm: regular rhythm Heart Sounds: S1 normal and S2 normal Neuro General: alert, oriented x3, no focal motor deficits and CN's II-XI intact bilaterally Course Vital Signs Temperature 98.8 F 06/21/18 04:18 Pulse 84 06/21/18 04:18 Respiratory Rate 20 06/21/18 04:18 Blood Pressure 132/53 L 06/21/18 04:18 Pulse Oximetry 97 06/21/18 04:18 Temperature 98.8 F 06/21/18 04:18 Temperature Source Temporal Artery Scan 06/21/18 04:18 Pulse 84 06/21/18 04:18 Respiratory Rate 20 06/21/18 04:18 Respiratory Effort Non-Labored 06/21/18 04:23 Respiratory Depth Normal 06/21/18 04:23 Blood Pressure 132/53 L 06/21/18 04:18 Blood Pressure Position Sitting 06/21/18 04:18 Pulse Oximetry 97 06/21/18 04:18 Oxygen Delivery Method Room Air 06/21/18 04:18 Oxygen Flow Rate 0 06/21/18 04:18 Pain Level 9 06/21/18 04:18
--- NOTE | 2018-06-21 04:50 | DI.RAD_ITS ---
SYMPTOM/DIAGNOSIS: COUGH AND WHEEZE PA AND LATERAL CHEST: The heart is normal in size. The lungs are clear. The mediastinal structures and pleura appear intact. CONCLUSION: Normal chest. No evidence of acute cardiopulmonary disease.
--- NOTE | 2018-06-21 05:10 | DI.VRAD_ITS ---
EXAM: XR Chest, 2 Views EXAM DATE/TIME: 06/21/2018 4:33 AM CLINICAL HISTORY: 67 years old, female; Signs and symptoms; Cough and wheezing TECHNIQUE: XR of the chest, 2 views. COMPARISON: CR XR CHEST 2V PA LATERAL 06/02/2018 4:22 AM FINDINGS: Lungs: Unremarkable. No consolidation. Pleural space: Unremarkable. No pleural effusion. No pneumothorax. Heart/Mediastinum: Unremarkable. No cardiomegaly. Bones/joints: Disc osteophyte of the spine. IMPRESSION: No acute finding. Dictated and Authenticated by: Aj Sibley MD. Ordering:TARYN Knowles MD
[2018-06-21 06:42] VITALS: BP 132/53; PULSE 84; RESP 20; TEMP 37.1; O2SAT 97
== END 2018-06-21 05:28 | disposition home or self-care (01) ==
LOC: ER 05:33
PROVIDERS: Emergency Provider Emergency Medicine; PCP Nurse Practitioner Family
DX: J06.9 Acute upper respiratory infection, unspecified (principal); R09.89 Other specified symptoms and signs involving the circulatory and respiratory systems; E11.9 Type 2 diabetes mellitus without complications; I10 Essential (primary) hypertension
CPT/HCPCS: 99283; 71046

== ENCOUNTER 2018-08-16 10:07 | Outpatient (CLI) | payer MEDICARE, MEDICAID, SELFPAY ==
[2018-08-16 11:01] LABS: HCT 37.9 % (36.0-46.0); HGB 11.9 g/dL (12.0-15.5); Mean Corp. HGB Concentration 31.4 g/dL (32.0-36.0); Mean Corpuscular Hemoglobin 25.1 pg (27.0-33.0); Mean Corpuscular Volume 79.8 fL (80-95); Mean Platelet Volume 9.5 fL (8.0-11.0); Platelet Count 285 x1000/uL (130-400); RBC 4.75 m/cumm (4.00-5.20); RBC Distribution Width 14.6 % (11.7-14.6); White Blood Cell Count 10.47 k/cumm (4.4-10.8)
[2018-08-16 11:48] LABS: Iron 31 ug/dL (50-175); Total Iron Binding Capacity 365 ug/dL (250-450); Transferrin Sat 8 % (15-50)
[2018-08-16 12:06] LABS: Ferritin 10 ng/mL (8-388); Magnesium 1.7 mg/dL (1.8-2.4)
[2018-08-17 19:37] LABS: Tissue Transglutaminase Ab IgA <1.2 U/mL
[2018-08-19 09:54] LABS: IgA 108 mg/dL (85-499)
== END 2018-08-16 10:27 ==
PROVIDERS: PCP Nurse Practitioner Family; Visit Provider Nurse Practitioner Family
DX: E83.42 Hypomagnesemia (principal); D64.9 Anemia, unspecified
CPT/HCPCS: 36415; 82784; 85027; 82728; 83516; 83540; 83550; 83735

== ENCOUNTER 2018-09-19 12:45 | Outpatient (CLI) | payer MEDICARE, MEDICAID, SELFPAY ==
--- NOTE | 2018-09-19 14:30 | DI.MAMMO_ITS ---
SYMPTOM/DIAGNOSIS: SCREENING, Z12.31, [facility], Z00.00 MAMMOGRAMS: Mammograms were interpreted according to the usual protocol including computer analysis with CAD system, tomosynthesis and C view imaging. Comparison with prior examinations. Breast density B. No suspicious masses or microcalcifications are seen. There is no definite evidence of malignancy. IMPRESSION: Negative mammogram. Routine screening is recommended. Category I. MQSA ASSESSMENT OF FINDINGS: Negative. Category 1. Patient will receive a letter notifying them of these results. BI-RADS category B. There are scattered areas of fibroglandular density.
== END 2018-09-19 13:05 ==
PROVIDERS: PCP Nurse Practitioner Family; Visit Provider Nurse Practitioner Family
DX: Z12.31 Encounter for screening mammogram for malignant neoplasm of breast (principal)
CPT/HCPCS: 77063; 77067

== ENCOUNTER 2018-10-20 03:19 | Emergency (ER) | payer MEDICARE, MEDICAID, SELFPAY ==
--- NOTE | 2018-10-20 03:16 | ED.GENADUL_ITS ---
Discharge Plan Disposition Patient Disposition: HOME Condition: Good Discharge Details Chief Complaint: SOB Clinical Impression: Asthma Primary Care Provider: Breanna Roque ED Provider: Hal Olmstead Home Meds and New Rx's Prescriptions: New prednisone 50 MG tablet 50 mg PO DAILY Qty: 5 RF: 0 No Action quetiapine 100 MG tablet 100 mg PO DAILY RF: 0 glyburide-metformin 1 EACH tablet 500 tab-cap PO BID RF: 0 albuterol sulfate [ProAir HFA] 8.5 GM HFA aerosol inhaler 1 puff Inhalation Q4H PRN RF: 0 Vitamin B-12 500 MCG tablet extended release 500 mcg PO DAILY RF: 0 pantoprazole 40 MG tablet,delayed release (DR/EC) 40 mg PO DAILY RF: 0 lisinopril 40 MG tablet 40 mg PO DAILY RF: 0 glucosamine sulfate 2KCl 1,000 MG tablet 500 mg PO DAILY RF: 0 simvastatin 40 MG tablet 40 mg PO HS RF: 0 calcium carbonate-vitamin D3 1 EACH tablet 1 ea PO BID RF: 0 naproxen sodium [Aleve] 220 mg Capsule 2 tab PO PRN PRNRF: 0 Discharge Instructions Instructions: Asthma (ED) Additional Instructions: Please take 2 puffs of your inhaler every 4-6 hours for the next 2 days. Please take the steroid as directed. If you notice any worsening of your symptoms, or any new symptoms such as vomiting, diarrhea, fever, chills, shortness of breath, chest pain, numbness, weakness, or fainting , please return immediately to the emergency department for reevaluation. Please follow up with your primary care provider as soon as possible for reassessment and reevaluation. As always, it was a pleasure participating in your medical care today. Referrals: Breanna Roque [Primary Care Provider] - Discharge Data Discharge Date/Time-TO BE ENTERED AT DEPARTURE: 10/20/18 04:25 Medical Decision Making This is a 68-year-old female with a past medical history of asthma, anxiety, high cholesterol, diabetes, who presents today for evaluation of shortness of breath. Patient states that her shortness of breath started at 9 PM last night is been going on for the last 6 hours. She did take a single breathing treatment and this did not resolve her symptoms. She contacted EMS and upon their arrival they noted no hypoxemia, severe wheezes, or signs of respiratory distress. Patient denies any history of cardiac disease, or history of LA. She denies any concerning red flags of chest tightness, chest heaviness, arm neck or shoulder pain or weight on her chest. She states that this does feel similar to her previous exacerbations of asthma in the past. With minimal wheezes noted in the bases, we will give breathing treatments, steroids, form and EKG get a chest x-ray and reassess. Patient signs and symptoms appear clinically inconsistent with ACS or massive PE at this time. No clinical evidence of significant fluid overload or severe CHF. 3:55 AM Reassessment of patient signs after initial breathing treatment demonstrate no evidence of significant wheeze. Patient continues to demonstrate notably reassuring vital signs. EKG is benign and shows no evidence of STEMI or cardiac etiology. No evidence of right heart strain. Chest x-ray was reviewed and demonstrates no evidence of severe pneumonia, severe pulmonary edema, [place] hump, pneumothorax, or other acute process. With a very well-appearing disposition, no vital sign abnormalities, clear lung sounds, no signs of severe chest pathology I feel her signs and symptoms are most likely secondary to a very mild asthma exacerbation. With resolution of her symptoms, I feel she can be safely discharged home with close and prompt follow-up. We will give 5 days of steroids for home use, recommend continuation of her home inhaler. I have extensively reviewed the treatment plan and discharge instructions with the patient. I have addressed all patient concerns at this time. The patient was made aware of what symptoms to monitor for that would warrant a return to the emergency department. Discussed the plan with the patient, they demonstrate verbal understanding and agreement with our assessment and plan at this time. EKG 3: 28 Rate 74, intervals normal, sinus rhythm, no significant ST elevations or depressions. Inverted T wave in V1 small Q wave in lead III. No evidence of STEMI. No sign of right heart strain. No S1Q3T3 combination. Previous EKG on EKG 06/02/18 demonstrates the same findings. COMPARISON: CR XR CHEST 2V PA LATERAL 06/21/2018 4:43 AM FINDINGS: Lungs: Mild chronic interstitial prominence No consolidation. Pleural space: No pleural effusion. No pneumothorax. Heart/Mediastinum: No cardiomegaly. Bones/joints: Degenerative changes in the spine and shoulders IMPRESSION: No acute findings. Dictated and Authenticated by: Mario Alvarez MD. Ordering:TED Hong MD HPI General Date/Time Provider Initiated Documentation: 10/20/18 03:25 . HPI Narrative: This is a 67-year-old female with a past medical history of asthma,, high cholesterol, anxiety and diabetes with a past surgical history of a hysterectomy who presents today for evaluation of shortness of breath. Patient states that starting at 9 PM she had mild shortness of breath. She did try taking a breathing treatment but this did not help her symptoms. She denies any chest pain, arm pain, neck pain, shoulder pain, chest tightness or chest heaviness. She denies any associated cough, fever or chills. She denies any vomiting or diarrhea. She denies any previous cardiac history, history of blood clots. Denies PE risk factors such as recent long car rides, immobilization, recent surgery, prior history of DVT or PE, family history of PE or DVT, morbid obesity, exogenous estrogen and smoking, hemoptysis, history of cancer. The patient did call EMS to bring her to the ER, upon EMS his arrival they noted notably clear lung sounds, and completely normal vital signs. Patient has no other complaints or modifying factors at this time. Related Data Home Medications Medication Instructions Recorded Confirmed Vitamin B-12 500 mcg PO DAILY 02/20/13 10/20/18 glucosamine sulfate 2KCl 500 mg PO DAILY 02/20/13 10/20/18 lisinopril 40 mg PO DAILY 02/20/13 10/20/18 pantoprazole 40 mg PO DAILY 02/20/13 10/20/18 albuterol sulfate [ProAir HFA] 1 puff INHALATION Q4H PRN inhaler 09/22/16 10/20/18 glyburide-metformin 500 tab-cap PO BID tab-cap 09/22/16 10/20/18 quetiapine 100 mg PO DAILY 09/22/16 10/20/18 calcium carbonate-vitamin D3 1 ea PO BID 10/10/17 10/20/18 simvastatin 40 mg PO HS 10/10/17 10/20/18 naproxen sodium [Aleve] 2 tab PO PRN PRN 03/24/18 10/20/18 prednisone 50 mg PO DAILY #5 tab 10/20/18 10/20/18 Previous Rx's Medication Instructions Recorded prednisone 50 mg PO DAILY #5 tab 10/20/18 Allergies Allergy/AdvReac Type Severity Reaction Status Date / Time thiopental sodium Allergy Skin Rash Unverified 10/20/18 09:55 [From Pentothal] General LYNNETTE: 4 Review of Systems Review of Systems All systems reviewed & are unremarkable except as noted in HPI and below PFSH Surgical History bladder suspension for incontinence Abdominal hysterectomy (~1979) Arthroplasty of knee Cholecystectomy Extraction of cataract Oophrectomy, Both (04/09/13) Social History Smoking/Tobacco Use Status: Former Tobacco Use Alcohol Intake: never Drug use: Never Do you feel safe at home: Yes Do you feel safe in your relationship?: Yes Exam Narrative Exam Narrative: 1.Const: Well-nourished, Well-developed, appearing stated age 2.Eyes: PERRL, no conjunctival injection, and symmetrical lids. 3.ENT: Atraumatic external nose and ears. Moist MM. Neck: Symmetric, trachea midline, No thyromegaly. 4.CVS: +S1/S2, No murmurs or gallops. Peripheral pulses 2+ and equal in all extremities. Brisk capillary refill in all extremities. 5.RESP: Unlabored respiratory effort. Clear to auscultation bilaterally. No rales or rhonchi. Minimal wheezes in the bases. 6.GI: Soft, Nontender/Nondistended, No hepatosplenomegaly. No guarding or rebound. 7.MSK: Normocephalic/Atraumatic, Extremities w/o deformity or ttp No cyanosis or clubbing, Normal movement of all extremities. No calf tenderness or pitting edema. 8.Skin: Warm, Dry. No rashes or lesions. 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 Sensation grossly intact, no focal neurologic deficits. 10.Psych: (AAO) x3. Appropriate mood and affect
[2018-10-20 03:29] VITALS: BP 156/69; PULSE 74; RESP 15; TEMP 36.8; O2SAT 100
[2018-10-20] MEDS: Albuterol/Ipratropium 3 ML UPD VIAL 6 ML UPD (03:36)
--- NOTE | 2018-10-20 03:43 | DI.RAD_ITS ---
SYMPTOM/DIAGNOSIS: SOB PORTABLE CHEST: Comparison is made with 21 June 2018. The heart size is normal. The lungs appear clear. No infiltrate or effusion seen. IMPRESSION: No acute abnormality.
[2018-10-20] MEDS: predniSONE 20 MG TAB 60 MG PO (03:49)
[2018-10-20 04:03] VITALS: BP 142/77; PULSE 76; RESP 15; TEMP 36.8; O2SAT 100
--- NOTE | 2018-10-20 05:38 | DI.VRAD_ITS ---
EXAM: XR Chest, 1 View EXAM DATE/TIME: 10/20/2018 3:44 AM CLINICAL HISTORY: 68 years old, female; Chest pain TECHNIQUE: Imaging protocol: XR of the chest, 1 view. COMPARISON: CR XR CHEST 2V PA LATERAL 06/21/2018 4:43 AM FINDINGS: Lungs: Mild chronic interstitial prominence No consolidation. Pleural space: No pleural effusion. No pneumothorax. Heart/Mediastinum: No cardiomegaly. Bones/joints: Degenerative changes in the spine and shoulders IMPRESSION: No acute findings. Dictated and Authenticated by: Mario Alvarez MD. Ordering:TED Hong MD
--- NOTE | 2018-10-20 09:01 | NUR.NOTE ---
Nursing Note: Patient called stating still having trouble breathing. What should she do? Patient was told, that if she is still having trouble breathing, to come back to the ED. Lakeisha To.
== END 2018-10-20 04:25 | disposition home or self-care (01) ==
PROVIDERS: Emergency Provider Student in an Organized Health Care Education/Training Program; PCP Nurse Practitioner Family
DX: J45.901 Unspecified asthma with (acute) exacerbation (principal); E11.9 Type 2 diabetes mellitus without complications
CPT/HCPCS: 93005; 94640; 96374; 99284; 71045; 93010; J7512; J7620

== ENCOUNTER 2018-10-20 09:42 | Emergency (ER) | payer MEDICARE, MEDICAID, SELFPAY ==
[2018-10-20] VITALS (24 sets, daily range): BP systolic 104–158; BP diastolic 70–119; PULSE 86–109; RESP 16–31; TEMP 37; O2SAT 96–100
--- NOTE | 2018-10-20 10:18 | ED.GENADUL_ITS ---
Discharge Plan Discharge Details Chief Complaint: Anxiety Clinical Impression: Anxiety Primary Care Provider: Yareli Gunderson ED Provider: Tobias Raza Home Meds and New Rx's Prescriptions: No Action quetiapine 100 MG tablet 100 mg PO DAILY RF: 0 glyburide-metformin 1 EACH tablet 500 tab-cap PO BID RF: 0 albuterol sulfate [ProAir HFA] 8.5 GM HFA aerosol inhaler 1 puff Inhalation Q4H PRN RF: 0 Vitamin B-12 500 MCG tablet extended release 500 mcg PO DAILY RF: 0 pantoprazole 40 MG tablet,delayed release (DR/EC) 40 mg PO DAILY RF: 0 lisinopril 40 MG tablet 40 mg PO DAILY RF: 0 glucosamine sulfate 2KCl 1,000 MG tablet 500 mg PO DAILY RF: 0 simvastatin 40 MG tablet 40 mg PO HS RF: 0 calcium carbonate-vitamin D3 1 EACH tablet 1 ea PO BID RF: 0 naproxen sodium [Aleve] 220 mg Capsule 2 tab PO PRN PRNRF: 0 magnesium 200 mg tablet 200 mg PO DAILY Qty: 14 RF: 0 Discharge Instructions Instructions: Anxiety (ED) Additional Instructions: You have been evaluated in the emergency department for anxiety. All of your blood tests here were normal. Imaging done today was also negative. It is very important that you follow-up with your primary care provider tomorrow to discuss your anxiety and the possibility of starting medications to treat your anxiety Referrals: Yareli Gunderson [Primary Care Provider] - 10/21/18 8:00 am Discharge Data Discharge Date/Time-TO BE ENTERED AT DEPARTURE: 10/20/18 14:42 Medical Decision Making <ADAMARIS Reynoso - Last Filed: 10/20/18 15:21> This is a nontoxic-appearing 68-year-old female presenting with a chief complaint of anxiety and shortness of breath. She was seen earlier this morning for similar symptoms chest x-ray then was negative. Her full comprehensive workup today is negative for ACS with a negative troponin and a unchanged EKG from prior. She did have a slightly elevated d-dimer therefore CT chest PE protocol was ordered. This was read as negative for pulmonary and by overreading radiologist. She admits to being very anxious and feels as though she cannot breathe. I spent several minutes with the patient explaining that her vitals are normal and her oxygenation is 100% without required supplemental oxygen. I did give her a small dose of lorazepam 0.5 mg p.o. which did not improve her symptoms. At this time patient is not meeting admission criteria. I explained this to the patient in detail. She must follow-up with her doctor tomorrow to discuss anxiety and the possibility of starting chronic therapy. Lab Data Lab results narrative: Lab Results 10/20/18 10/20/18 10/20/18 Range/Units 10:30 10:30 10:30 WBC 13.46 H (4.4-10.8) k/cumm RBC 4.98 (4.00-5.20) m/cumm Hgb 12.9 (12.0-15.5) g/dL Hct 38.6 (36.0-46.0) % MCV 77.5 L (80-95) fL MCH 25.9 L (27.0-33.0) pg MCHC 33.4 (32.0-36.0) g/dL RDW 15.3 H (11.7-14.6) % Plt Count 262 (130-400) x1000/uL MPV 9.5 (8.0-11.0) fL Immature Gran % 0.5 Neutrophils % 89.6 Lymphocytes % 8.8 Monocytes % 0.9 Eosinophils % 0.1 Basophils % 0.1 Absolute Neutrophils 12.06 H (1.2-6.7) k/cumm Absolute Lymphocytes 1.18 L (1.2-3.4) k/cumm Absolute Monocytes 0.12 (0.11-0.7) k/cumm Absolute Eosinophils 0.01 (0.0-0.7) k/cumm Absolute Basophils 0.01 (0.0-0.2) k/cumm D-Dimer 615 H (<500) ng/mlFEU VBG pH (7.32-7.43) VBG pCO2 (34-47) mm/Hg VBG pO2 (28-44) mm/Hg VBG HCO3 (22-28) mmol/L VBG Total CO2 (22-29) mmol/L VBG O2 Saturation (70-80) % VBG Base Excess (-3-3) mmol/L Sodium 136 (136-145) mmol/L Potassium 3.3 L (3.5-5.1) mmol/L Chloride 97 L (98-107) mmol/L Carbon Dioxide 23.2 (21.0-32.0) mmol/L Anion Gap 15.8 H (3-11) mmol/L BUN 13 (7-18) mg/dL Creatinine 0.86 (0.55-1.02) mg/dL Estimated GFR/1.73 m2 >= 60.00 (mL/min/1.73m2) Glucose 236 H (70-100) mg/dL Calcium 9.3 (8.5-10.1) mg/dL Magnesium 1.7 L (1.8-2.4) mg/dL Total Bilirubin 0.4 (0.2-1.0) mg/dL AST 16 (15-37) U/L ALT 25 (12-78) U/L Alkaline Phosphatase 108 (46-116) U/L Troponin I < 0.02 (0.00-0.06) ng/mL NT-Pro-B Natriuret Pep 52 ( - 299) pg/mL Total Protein 8.1 (6.4-8.2) g/dL Albumin 4.1 (3.4-5.0) g/dL TSH (0.358-3.74) uIU/mL 10/20/18 10/20/18 Range/Units 10:30 10:30 WBC (4.4-10.8) k/cumm RBC (4.00-5.20) m/cumm Hgb (12.0-15.5) g/dL Hct (36.0-46.0) % MCV (80-95) fL MCH (27.0-33.0) pg MCHC (32.0-36.0) g/dL RDW (11.7-14.6) % Plt Count (130-400) x1000/uL MPV (8.0-11.0) fL Immature Gran % Neutrophils % Lymphocytes % Monocytes % Eosinophils % Basophils % Absolute Neutrophils (1.2-6.7) k/cumm Absolute Lymphocytes (1.2-3.4) k/cumm Absolute Monocytes (0.11-0.7) k/cumm Absolute Eosinophils (0.0-0.7) k/cumm Absolute Basophils (0.0-0.2) k/cumm D-Dimer (<500) ng/mlFEU VBG pH 7.51 H (7.32-7.43) VBG pCO2 29 L (34-47) mm/Hg VBG pO2 37 (28-44) mm/Hg VBG HCO3 24 (22-28) mmol/L VBG Total CO2 21 L (22-29) mmol/L VBG O2 Saturation 76 (70-80) % VBG Base Excess 0.6 (-3-3) mmol/L Sodium (136-145) mmol/L Potassium (3.5-5.1) mmol/L Chloride (98-107) mmol/L Carbon Dioxide (21.0-32.0) mmol/L Anion Gap (3-11) mmol/L BUN (7-18) mg/dL Creatinine (0.55-1.02) mg/dL Estimated GFR/1.73 m2 (mL/min/1.73m2) Glucose (70-100) mg/dL Calcium (8.5-10.1) mg/dL Magnesium (1.8-2.4) mg/dL Total Bilirubin (0.2-1.0) mg/dL AST (15-37) U/L ALT (12-78) U/L Alkaline Phosphatase (46-116) U/L Troponin I (0.00-0.06) ng/mL NT-Pro-B Natriuret Pep ( - 299) pg/mL Total Protein (6.4-8.2) g/dL Albumin (3.4-5.0) g/dL TSH 1.89 (0.358-3.74) uIU/mL <Sotero Guzman MD - Last Filed: 10/24/18 21:24> ECG Data Attestation: I personally reviewed and interpreted this ECG (s) as follows: (Sinus tachycardia 107 bpm, normal axis, QTC 443, low voltage, possible pulmonary disease, nondiagnostic.) HPI <ADAMARIS Reynoso - Last Filed: 10/20/18 15:21> General Date/Time Provider Initiated Documentation: 10/20/18 09:48 . HPI Narrative: Patient is a 68-year-old female with a significant past medical history of asthma diabetes hypertension hyperlipidemia and restless leg syndrome who presents to the emergency department with anxiety and dyspnea. Patient states that she is anxious secondary to her being unable to breathe. She denies any chest pain associated with her symptoms. She has had a nonproductive cough. Patient was seen in the emergency department roughly 8 hours ago for symptoms of shortness of breath that woke her up from sleep. She was discharged home with a negative chest x-ray. She denies any fevers or recent illness. She does state that her breathing is worse with lying flat. No diagnosis of anxiety in the Related Data Home Medications Medication Instructions Recorded Confirmed Vitamin B-12 500 mcg PO DAILY 02/20/13 10/24/18 glucosamine sulfate 2KCl 500 mg PO DAILY 02/20/13 10/24/18 lisinopril 40 mg PO DAILY 02/20/13 10/24/18 pantoprazole 40 mg PO DAILY 02/20/13 10/24/18 albuterol sulfate [ProAir HFA] 1 puff INHALATION Q4H PRN inhaler 09/22/16 10/24/18 glyburide-metformin 500 tab-cap PO BID tab-cap 09/22/16 10/24/18 quetiapine 100 mg PO DAILY 09/22/16 10/24/18 calcium carbonate-vitamin D3 1 ea PO BID 10/10/17 10/24/18 simvastatin 40 mg PO HS 10/10/17 10/24/18 naproxen sodium [Aleve] 2 tab PO PRN PRN 03/24/18 10/24/18 magnesium 200 mg PO DAILY #14 tab 10/24/18 Previous Rx's Medication Instructions Recorded magnesium 200 mg PO DAILY #14 tab 10/24/18 Allergies Allergy/AdvReac Type Severity Reaction Status Date / Time thiopental sodium Allergy Skin Rash Unverified 10/24/18 10:11 [From Pentothal] General Stated Complaint: Anxiety LYNNETTE: 3 Review of Systems <ADAMARIS Reynoso - Last Filed: 10/20/18 15:21> Constitutional Denies chills, Denies fatigue, Denies fever(s), Denies lethargy, Denies malaise, Denies night sweats, Denies weakness and Denies weight gain ENT Denies dizziness, Denies nasal congestion, Denies nasal discharge, Denies sinus pain, Denies sore throat and Denies throat swelling Cardiovascular Denies chest pain, Denies syncope, Denies rapid heart rate, Denies leg edema, Denies palpitations, Reports dyspnea, Reports orthopnea and Denies paroxysmal nocturnal dyspnea Respiratory Denies chest congestion, Reports cough, Denies hemoptysis, Denies pain on inspiration and Reports dyspnea Gastrointestinal Denies abdominal pain Genitourinary Denies dysuria Musculoskeletal Denies back pain, Denies myalgias, Denies arthralgias and Denies joint swelling Neurologic Denies confusion, Denies dizziness, Denies syncope and Denies weakness Psychiatric Reports anxiety, Denies change in appetite, Denies confusion, Denies depression, Denies homicidal ideation and Denies suicidal ideation Endocrine Denies fatigue and Denies palpitations Allergic/Immunologic Denies throat swelling PFSH <ADAMARIS Reynsoo - Last Filed: 10/20/18 15:21> Social History Smoking/Tobacco Use Status: Former Tobacco Use Alcohol Intake: never Drug use: Never Do you feel safe at home: Yes Do you feel safe in your relationship?: Yes Exam <ADAMARIS Reynoso - Last Filed: 10/20/18 15:21> Narrative Exam Narrative: Narrative Exam Narrative: 1.Const: Well-nourished, Well-developed, appearing stated age. Anxious 2.Eyes: PERRL, no conjunctival injection, and symmetrical lids. 3.ENT: Atraumatic external nose and ears. Moist MM. Neck: Symmetric, trachea midline, No thyromegaly. 4.CVS: +S1/S2, No murmurs or gallops. Peripheral pulses 2+ and equal in all extremities. Brisk capillary refill in all extremities. 5.RESP: Unlabored respiratory effort. Clear to auscultation bilaterally. No rales or rhonchi. Minimal wheezes in the bases. 6.GI: Soft, Nontender/Nondistended, No hepatosplenomegaly. No guarding or rebound. 7.MSK: Normocephalic/Atraumatic, Extremities w/o deformity or ttp No cyanosis or clubbing, Normal movement of all extremities. No calf tenderness or pitting edema. 8.Skin: Warm, Dry. No rashes or lesions. 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 Sensation grossly intact, no focal neurologic deficits. 10.Psych: (AAO) x3. Appropriate mood and affect. anxious. Course <ADAMARIS Reynoso - Last Filed: 10/20/18 15:21> Vital Signs Temperature 37 C 10/20/18 09:52 Pulse 89 10/20/18 09:52 Respiratory Rate 16 10/20/18 09:52 Blood Pressure 104/70 10/20/18 09:52 Pulse Oximetry 98 10/20/18 09:52 Temperature 37 C 10/20/18 09:52 Temperature Source Skin 10/20/18 09:52 Pulse 89 10/20/18 09:52 Respiratory Rate 16 10/20/18 09:52 Respiratory Effort Non-Labored 10/20/18 09:52 Blood Pressure 104/70 10/20/18 09:52 Blood Pressure Position Sitting 10/20/18 09:52 Pulse Oximetry 98 10/20/18 09:52 Oxygen Delivery Method Room Air 10/20/18 09:52 Oxygen Flow Rate 0 10/20/18 09:52 Pain Level 0 10/20/18 09:52 Lab/Test Results Lab/Test Results: Lab Results 10/20/18 10/20/18 10/20/18 Range/Units 10:30 10:30 10:30 WBC 13.46 H (4.4-10.8) k/cumm RBC 4.98 (4.00-5.20) m/cumm Hgb 12.9 (12.0-15.5) g/dL Hct 38.6 (36.0-46.0) % MCV 77.5 L (80-95) fL MCH 25.9 L (27.0-33.0) pg MCHC 33.4 (32.0-36.0) g/dL RDW 15.3 H (11.7-14.6) % Plt Count 262 (130-400) x1000/uL MPV 9.5 (8.0-11.0) fL Immature Gran % 0.5 Neutrophils % 89.6 Lymphocytes % 8.8 Monocytes % 0.9 Eosinophils % 0.1 Basophils % 0.1 Absolute Neutrophils 12.06 H (1.2-6.7) k/cumm Absolute Lymphocytes 1.18 L (1.2-3.4) k/cumm Absolute Monocytes 0.12 (0.11-0.7) k/cumm Absolute Eosinophils 0.01 (0.0-0.7) k/cumm Absolute Basophils 0.01 (0.0-0.2) k/cumm D-Dimer 615 H (<500) ng/mlFEU VBG pH (7.32-7.43) VBG pCO2 (34-47) mm/Hg VBG pO2 (28-44) mm/Hg VBG HCO3 (22-28) mmol/L VBG Total CO2 (22-29) mmol/L VBG O2 Saturation (70-80) % VBG Base Excess (-3-3) mmol/L Sodium 136 (136-145) mmol/L Potassium 3.3 L (3.5-5.1) mmol/L Chloride 97 L (98-107) mmol/L Carbon Dioxide 23.2 (21.0-32.0) mmol/L Anion Gap 15.8 H (3-11) mmol/L BUN 13 (7-18) mg/dL Creatinine 0.86 (0.55-1.02) mg/dL Estimated GFR/1.73 m2 >= 60.00 (mL/min/1.73m2) Glucose 236 H (70-100) mg/dL Calcium 9.3 (8.5-10.1) mg/dL Magnesium 1.7 L (1.8-2.4) mg/dL Total Bilirubin 0.4 (0.2-1.0) mg/dL AST 16 (15-37) U/L ALT 25 (12-78) U/L Alkaline Phosphatase 108 (46-116) U/L Troponin I < 0.02 (0.00-0.06) ng/mL NT-Pro-B Natriuret Pep 52 ( - 299) pg/mL Total Protein 8.1 (6.4-8.2) g/dL Albumin 4.1 (3.4-5.0) g/dL TSH (0.358-3.74) uIU/mL 10/20/18 10/20/18 Range/Units 10:30 10:30 WBC (4.4-10.8) k/cumm RBC (4.00-5.20) m/cumm Hgb (12.0-15.5) g/dL Hct (36.0-46.0) % MCV (80-95) fL MCH (27.0-33.0) pg MCHC (32.0-36.0) g/dL RDW (11.7-14.6) % Plt Count (130-400) x1000/uL MPV (8.0-11.0) fL Immature Gran % Neutrophils % Lymphocytes % Monocytes % Eosinophils % Basophils % Absolute Neutrophils (1.2-6.7) k/cumm Absolute Lymphocytes (1.2-3.4) k/cumm Absolute Monocytes (0.11-0.7) k/cumm Absolute Eosinophils (0.0-0.7) k/cumm Absolute Basophils (0.0-0.2) k/cumm D-Dimer (<500) ng/mlFEU VBG pH 7.51 H (7.32-7.43) VBG pCO2 29 L (34-47) mm/Hg VBG pO2 37 (28-44) mm/Hg VBG HCO3 24 (22-28) mmol/L VBG Total CO2 21 L (22-29) mmol/L VBG O2 Saturation 76 (70-80) % VBG Base Excess 0.6 (-3-3) mmol/L Sodium (136-145) mmol/L Potassium (3.5-5.1) mmol/L Chloride (98-107) mmol/L Carbon Dioxide (21.0-32.0) mmol/L Anion Gap (3-11) mmol/L BUN (7-18) mg/dL Creatinine (0.55-1.02) mg/dL Estimated GFR/1.73 m2 (mL/min/1.73m2) Glucose (70-100) mg/dL Calcium (8.5-10.1) mg/dL Magnesium (1.8-2.4) mg/dL Total Bilirubin (0.2-1.0) mg/dL AST (15-37) U/L ALT (12-78) U/L Alkaline Phosphatase (46-116) U/L Troponin I (0.00-0.06) ng/mL NT-Pro-B Natriuret Pep ( - 299) pg/mL Total Protein (6.4-8.2) g/dL Albumin (3.4-5.0) g/dL TSH 1.89 (0.358-3.74) uIU/mL
[2018-10-20 10:38] LABS: BE (Venous) 0.6 mmol/L (-3-3); HCO3 (Venous) 24 mmol/L (22-28); O2 Sat (Venous) 76 % (70-80); TCO2 (Venous) 21 mmol/L (22-29); pCO2 (Venous) 29 mm/Hg (34-47); pH (Venous) 7.51 (7.32-7.43); pO2 (Venous) 37 mm/Hg (28-44)
[2018-10-20 10:39] LABS: Abs Immature Grans 0.07 k/cumm (0.0-0.09); Absolute Eosinophil Count 0.01 k/cumm (0.0-0.7); Absolute Lymphocyte Count 1.18 k/cumm (1.2-3.4); Absolute Monocyte Count 0.12 k/cumm (0.11-0.7); Absolute Neutrophil Count 12.06 k/cumm (1.2-6.7); Basophils % 0.1; Eosinophils % 0.1; HCT 38.6 % (36.0-46.0); HGB 12.9 g/dL (12.0-15.5); Immature Grans % 0.5; Lymphocytes % 8.8; Mean Corp. HGB Concentration 33.4 g/dL (32.0-36.0); Mean Corpuscular Hemoglobin 25.9 pg (27.0-33.0); Mean Corpuscular Volume 77.5 fL (80-95); Mean Platelet Volume 9.5 fL (8.0-11.0); Monocytes % 0.9; Neutrophils % 89.6; Platelet Count 262 x1000/uL (130-400); RBC 4.98 m/cumm (4.00-5.20); RBC Distribution Width 15.3 % (11.7-14.6); White Blood Cell Count 13.46 k/cumm (4.4-10.8)
[2018-10-20 10:43] LABS: Absolute Basophil Count 0.01 k/cumm (0.0-0.2)
[2018-10-20 11:01] LABS: ALT 25 U/L (12-78); AST 16 U/L (15-37); Albumin 4.1 g/dL (3.4-5.0); Alkaline Phosphatase 108 U/L (46-116); Anion Gap 15.8 mmol/L (3-11); BUN 13 mg/dL (7-18); Bilirubin, Total 0.4 mg/dL (0.2-1.0); CO2 23.2 mmol/L (21.0-32.0); CREATININE 0.86 mg/dL (0.55-1.02); Calcium 9.3 mg/dL (8.5-10.1); Chloride 97 mmol/L (98-107); Glucose 236 mg/dL (70-100); Magnesium 1.7 mg/dL (1.8-2.4); NT-proBNP 52 pg/mL; Potassium 3.3 mmol/L (3.5-5.1); Sodium 136 mmol/L (136-145); Total Protein 8.1 g/dL (6.4-8.2); Troponin I < 0.02 ng/mL (0.00-0.06)
[2018-10-20 11:05] LABS: TSH (W/Ref FT4) 1.89 uIU/mL (0.358-3.74)
[2018-10-20 11:11] LABS: D-Dimer 615 ng/mlFEU (<500)
--- NOTE | 2018-10-20 11:27 | DI.CT_ITS ---
SYMPTOM/DIAGNOSIS: SOB, ELEVATED D DIMER PE CHEST CT: CT angiography was performed with multi slice acquisition and multi planar and 3D reconstruction. Comparison is made with 06/02/18. The pulmonary arteries and aorta are well opacified with IV contrast and no pulmonary emboli or aortic dissection is seen. There is no evidence of pleural or pericardial effusion or infiltrate. The visualized portions of the upper abdomen are unremarkable. IMPRESSION: No evidence of pulmonary emboli or other acute abnormality.
[2018-10-20] MEDS: LORazepam 0.5 MG TAB PO (12:11)
[2018-10-20] MEDS: Omnipaque 350 MG/ML 100 ML BTL IJ (13:23)
--- NOTE | 2018-10-20 13:55 | DI.VRAD_ITS ---
EXAM: CT Angiography Chest With Contrast EXAM DATE/TIME: 10/20/2018 11:28 AM CLINICAL HISTORY: 68 years old, female; Chest pain TECHNIQUE: Imaging protocol: Axial computed tomographic angiography images of the chest with intravenous contrast using CT angiography protocol. Coronal and sagittal reformatted images were created and reviewed. 3D rendering: MIP reconstructed images were created and reviewed. COMPARISON: CT Private^PE (Adult) 06/02/2018 5:06 AM FINDINGS: Pulmonary arteries: No evidence of pulmonary embolus to the segmental level. Aorta: No aneurysm of the aorta. No dissection of the aorta. Thyroid: The thyroid is heterogeneous Lungs: Normal. No consolidation. No masses. Pleural space: Normal. No pneumothorax. No pleural effusion. Heart: Small pericardial effusion Mediastinum: Small hiatal hernia Lymph nodes: Unremarkable. No enlarged lymph nodes. Bones/joints: Unremarkable. No acute fracture. Soft tissues: Unremarkable. IMPRESSION: 1. No evidence of pulmonary embolus to the segmental level. 2. No aneurysm of the aorta. 3. No dissection of the aorta. Dictated and Authenticated by: Alex Yang MD. Ordering:MAGY Collado MD
== END 2018-10-20 14:42 ==
PROVIDERS: Emergency Provider Physician Assistant; PCP Nurse Practitioner Family
DX: F41.9 Anxiety disorder, unspecified (principal); R06.02 Shortness of breath; I10 Essential (primary) hypertension; E11.9 Type 2 diabetes mellitus without complications
CPT/HCPCS: 36415; 71275; 80053; 82805; 93005; 94640; 96374; 99284; 99285; 71045; 83735; 83880; 84443; 84484; 85025; 85379; 93010; J3490; J7512; J7620

== ENCOUNTER 2018-10-22 22:40 | Emergency (ER) | payer MEDICARE, MEDICAID, SELFPAY ==
[2018-10-22 22:40] VITALS: BP 128/71; PULSE 64; RESP 12; TEMP 36.7; O2SAT 97
[2018-10-22 22:46] VITALS: RESP 14
--- NOTE | 2018-10-22 23:14 | ED.GENADUL_ITS ---
Discharge Plan Disposition Patient Disposition: HOME Condition: Good Discharge Details Chief Complaint: GenMedical Clinical Impression: Insomnia Primary Care Provider: Yareli Gunderson ED Provider: Provider,Temporary Home Meds and New Rx's Prescriptions: Continued quetiapine 100 MG tablet 100 mg PO DAILY RF: 0 glyburide-metformin 1 EACH tablet 500 tab-cap PO BID RF: 0 albuterol sulfate [ProAir HFA] 8.5 GM HFA aerosol inhaler 1 puff Inhalation Q4H PRN RF: 0 Vitamin B-12 500 MCG tablet extended release 500 mcg PO DAILY RF: 0 pantoprazole 40 MG tablet,delayed release (DR/EC) 40 mg PO DAILY RF: 0 lisinopril 40 MG tablet 40 mg PO DAILY RF: 0 glucosamine sulfate 2KCl 1,000 MG tablet 500 mg PO DAILY RF: 0 simvastatin 40 MG tablet 40 mg PO HS RF: 0 calcium carbonate-vitamin D3 1 EACH tablet 1 ea PO BID RF: 0 naproxen sodium [Aleve] 220 mg Capsule 2 tab PO PRN PRNRF: 0 Discontinued prednisone 50 MG tablet 50 mg PO DAILY Qty: 5 RF: 0 Discharge Instructions Instructions: Insomnia (ED) Additional Instructions: Now that the prednisone is completed you should do better with sleep. Take Benadryl 25 to 50 mg at night in addition to your other medications to see if that helps. Contact primary care for follow-up. Referrals: Yareli Gunderson [Primary Care Provider] - Medical Decision Making Patient with insomnia likely side effect of the prednisone. This has now been completed. Her vital signs are normal. Her neurological exam is normal. Her lungs are clear. She has no acute medical issue other than insomnia. She will be discharged home with a Benadryl to try tonight and contact primary care in the morning if not helpful. HPI General Mode of arrival: EMS . Date/Time Provider Initiated Documentation: 10/22/18 23:10 . Limitations to Documentation: no limitations . Information obtained by: patient . HPI Narrative: Patient presents to ED by ambulance with complaint of inability to sleep for the last 3 nights. She has been on prednisone for bronchitis. That is finished. Her breathing and cough is much better. She denies any fevers. She denies any chest pain, headache, abdominal pain, vomiting. She simply came in because she has been unable to sleep. She reports seeing her primary care on Sunday and telling her about this. She is on Seroquel at night already. She did not call primary care today or prior to coming in. Related Data Home Medications Medication Instructions Recorded Confirmed Vitamin B-12 500 mcg PO DAILY 02/20/13 10/22/18 glucosamine sulfate 2KCl 500 mg PO DAILY 02/20/13 10/22/18 lisinopril 40 mg PO DAILY 02/20/13 10/22/18 pantoprazole 40 mg PO DAILY 02/20/13 10/22/18 albuterol sulfate [ProAir HFA] 1 puff INHALATION Q4H PRN inhaler 09/22/16 10/22/18 glyburide-metformin 500 tab-cap PO BID tab-cap 09/22/16 10/22/18 quetiapine 100 mg PO DAILY 09/22/16 10/22/18 calcium carbonate-vitamin D3 1 ea PO BID 10/10/17 10/22/18 simvastatin 40 mg PO HS 10/10/17 10/22/18 naproxen sodium [Aleve] 2 tab PO PRN PRN 03/24/18 10/22/18 Allergies Allergy/AdvReac Type Severity Reaction Status Date / Time thiopental sodium Allergy Skin Rash Unverified 10/22/18 22:44 [From Pentothal] General Stated Complaint: GenMedical LYNNETTE: 5 Review of Systems Review of Systems As documented in HPI otherwise negative as below. Const: no fever, chills, weakness Resp: no cough, SOB, pleuritic pain CV: no CP, diaphoresis, edema, syncope GI: no abdominal pain, nausea, vomiting, diarrhea Neuro: no headache, numbness, focal weakness, confusion [facility] Surgical History bladder suspension for incontinence Abdominal hysterectomy (~1979) Arthroplasty of knee Cholecystectomy Extraction of cataract Oophrectomy, Both (04/09/13) Social History Smoking/Tobacco Use Status: Former Tobacco Use Alcohol Intake: never Drug use: Never Do you feel safe at home: Yes Do you feel safe in your relationship?: Yes Exam Narrative Exam Narrative: Vitals are normal. Const: WDWN female in NAD. HEENT: NC/AT. Normal facial exam. Eyes: Normal conjunctiva and sclera. Neck: Supple. Trachea midline. Lungs: Normal respiratory effort. Lungs are clear. Cor: RRR without murmur/gallop. Good radial pulses. Neuro: A+O x 3. CN grossly in tact. Good strength and no focal deficit. Course Vital Signs Temperature 98.1 F 10/22/18 22:40 Pulse 64 10/22/18 22:40 Respiratory Rate 12 10/22/18 22:40 Blood Pressure 128/71 10/22/18 22:40 Pulse Oximetry 97 10/22/18 22:40 Temperature 98.1 F 10/22/18 22:40 Temperature Source Skin 10/22/18 22:40 Pulse 64 10/22/18 22:40 Respiratory Rate 14 10/22/18 22:46 Respiratory Effort Non-Labored 10/22/18 22:46 Respiratory Depth Normal 10/22/18 22:46 Respiratory Pattern Normal 10/22/18 22:46 Blood Pressure 128/71 10/22/18 22:40 Blood Pressure Position Sitting 10/22/18 22:40 Pulse Oximetry 97 10/22/18 22:40 Oxygen Delivery Method Room Air 10/22/18 22:40 Oxygen Flow Rate 0 10/22/18 22:40 Pain Level 0 10/22/18 22:40
[2018-10-22] MEDS: diphenhydrAMINE 25 MG CAP PO (23:46)
== END 2018-10-22 23:45 | disposition home or self-care (01) ==
PROVIDERS: Emergency Provider Emergency Medicine; PCP Nurse Practitioner Family
DX: G47.00 Insomnia, unspecified (principal); E11.9 Type 2 diabetes mellitus without complications; I10 Essential (primary) hypertension; Z79.84 Long term (current) use of oral hypoglycemic drugs
CPT/HCPCS: 99282

== ENCOUNTER 2018-10-24 09:58 | Emergency (ER) | payer MEDICARE, MEDICAID, SELFPAY ==
[2018-10-24] VITALS (31 sets, daily range): BP systolic 68–121; BP diastolic 37–83; PULSE 65–86; RESP 13–25; TEMP 36.4; O2SAT 89–100
--- NOTE | 2018-10-24 10:15 | ED.GENADUL_ITS ---
Medical Decision Making <Aj Truong MD - Last Filed: 10/24/18 10:15> ECG Data Attestation: I personally reviewed and interpreted this ECG (s) as follows: Prior ECG tracings: not available for review Interpretation: sinus rhythm, rate of 67, pr 186, no acute st t wave ischemic changes HPI <Aj Truong MD - Last Filed: 10/24/18 10:15> General Date/Time Provider Initiated Documentation: 10/24/18 10:13 . Related Data Home Medications Medication Instructions Recorded Confirmed Vitamin B-12 500 mcg PO DAILY 02/20/13 10/24/18 glucosamine sulfate 2KCl 500 mg PO DAILY 02/20/13 10/24/18 lisinopril 40 mg PO DAILY 02/20/13 10/24/18 pantoprazole 40 mg PO DAILY 02/20/13 10/24/18 albuterol sulfate [ProAir HFA] 1 puff INHALATION Q4H PRN inhaler 09/22/16 10/24/18 glyburide-metformin 500 tab-cap PO BID tab-cap 09/22/16 10/24/18 quetiapine 100 mg PO DAILY 09/22/16 10/24/18 calcium carbonate-vitamin D3 1 ea PO BID 10/10/17 10/24/18 simvastatin 40 mg PO HS 10/10/17 10/24/18 naproxen sodium [Aleve] 2 tab PO PRN PRN 03/24/18 10/24/18 magnesium 200 mg PO DAILY #14 tab 10/24/18 Previous Rx's Medication Instructions Recorded magnesium 200 mg PO DAILY #14 tab 10/24/18 Allergies Allergy/AdvReac Type Severity Reaction Status Date / Time thiopental sodium Allergy Skin Rash Unverified 10/24/18 10:11 [From Pentothal] <ADAMARIS Rodriguez - Last Filed: 10/26/18 18:36> General Stated Complaint: Dizzy/Sync LYNNETTE: 3 PFSH <Aj Truong MD - Last Filed: 10/24/18 10:15> Medical History Asthma (Chronic) Diabetes mellitus (Chronic) HTN (hypertension) (Chronic) Hypercholesterolemia (Chronic) Diverticulitis of large intestine Restless legs Surgical History bladder suspension for incontinence Abdominal hysterectomy (~1979) Arthroplasty of knee Cholecystectomy Extraction of cataract Oophrectomy, Both (04/09/13) Social History Smoking/Tobacco Use Status: Former Tobacco Use Alcohol Intake: never Drug use: Never Do you feel safe at home: Yes Do you feel safe in your relationship?: Yes <ADAMARIS Rodriguez - Last Filed: 10/26/18 18:36> Vital Signs Temperature 36.4 C L 10/24/18 10:09 Pulse 67 10/24/18 10:09 Respiratory Rate 10/24/18 10:09 Blood Pressure 104/52 L 10/24/18 10:09 Pulse Oximetry 97 10/24/18 10:09 Temperature 36.4 C L 10/24/18 10:09 Temperature Source Skin 10/24/18 10:09 Pulse 67 10/24/18 10:09 Respiratory Rate 19 10/24/18 10:09 Respiratory Effort Non-Labored 10/24/18 10:09 Blood Pressure 104/52 L 10/24/18 10:09 Blood Pressure Position Sitting 10/24/18 10:09 Pulse Oximetry 97 10/24/18 10:09 Oxygen Delivery Method Room Air 10/24/18 10:09 Oxygen Flow Rate 0 10/24/18 10:09 Pain Level 0 10/24/18 10:09
--- NOTE | 2018-10-24 10:27 | DI.CT_ITS ---
SYMPTOMS/DIAGNOSIS: WEAKNESS, NEAR SYNCOPE CRANIAL CT: A noncontrast enhanced examination was performed. Prominent atrophic changes are demonstrated. There is no evidence of an intra or extra-axial hemorrhage or mass. Ill-defined regions of diminished absorption are noted in the frontoparietal white matter consistent with small vessel disease. The ventricles are intact. The midline is preserved. The sinuses are unremarkable. There is no evidence of a mastoid effusion. SUMMARY: Atrophy and evidence of small vessel disease. No acute intracranial abnormality is seen.
--- NOTE | 2018-10-24 10:35 | ED.GENADUL_ITS ---
Discharge Plan Disposition Patient Disposition: HOME Condition: Improving Discharge Details Chief Complaint: Dizzy/Sync Clinical Impression: Hypomagnesemia, Dehydration, Near syncope Primary Care Provider: Yareli Gunderson ED Provider: Zoila Fisher Home Meds and New Rx's Prescriptions: New magnesium 200 mg tablet 200 mg PO DAILY Qty: 14 RF: 0 Continued quetiapine 100 MG tablet 100 mg PO DAILY RF: 0 glyburide-metformin 1 EACH tablet 500 tab-cap PO BID RF: 0 albuterol sulfate [ProAir HFA] 8.5 GM HFA aerosol inhaler 1 puff Inhalation Q4H PRN RF: 0 Vitamin B-12 500 MCG tablet extended release 500 mcg PO DAILY RF: 0 pantoprazole 40 MG tablet,delayed release (DR/EC) 40 mg PO DAILY RF: 0 lisinopril 40 MG tablet 40 mg PO DAILY RF: 0 glucosamine sulfate 2KCl 1,000 MG tablet 500 mg PO DAILY RF: 0 simvastatin 40 MG tablet 40 mg PO HS RF: 0 calcium carbonate-vitamin D3 1 EACH tablet 1 ea PO BID RF: 0 naproxen sodium [Aleve] 220 mg Capsule 2 tab PO PRN PRNRF: 0 Discharge Instructions Instructions: Dehydration (ED), Hypomagnesemia (ED), Near Syncope (ED) Additional Instructions: Encourage hydration. Please move slower when going from a sitting to standing position as this may have been from you getting up too quickly. Please begin daily magnesium supplement as prescribed. You have an appointment with your primary care May 2 at 8 AM, if this does not work please call them at the number listed If you develop shortness of breath, chest pain, inability to hydrate or other new/worsening symptoms please seek care urgently once again Referrals: Yareli Gunderson [Primary Care Provider] - Discharge Data Discharge Date/Time-TO BE ENTERED AT DEPARTURE: 10/24/18 12:32 Medical Decision Making Patient is 68-year-old female presenting today with chief complaint of near syncope and global weakness. She brought in via EMS. Patient with a past medical history of asthma, anxiety, high cholesterol, diabetes. She was seen here recently for shortness of breath which was treated with steroids, patient states that the shortness of breath is completely resolved. At that time she did undergo a chest x-ray as well as CT which showed no pulmonary embolism. She is endorsing generalized weakness and fatigue that began last night and into today. States that she was sitting in her chair to sleep last night and she woke up this morning jumped up to go to the restroom and became near syncopal. Reports that she suddenly felt weak and that her legs gave out. She did not actually lose consciousness, was able to catch herself prior to falling. Did not strike her head, no trauma. Denies any pain at this time. Denies any chest pain shortness of breath. Denies any nausea vomiting. No headache. No visual change. Did not note any focal weakness. Physical exam is benign. Her neuro exam is intact. Her lungs are clear and normal cardiac exam. Abdomen is soft and nontender. No posterior calf pain. No pedal edema. She does appear dehydrated. History and exam is most concerning for orthostatic hypotension. EKG reviewed by Dr. Truong with no acute abnormalities noted. CT obtained for possible intracranial abnoramlity. Reviewed by radiology, no acute abnormalities. Labs are reassuring for no evidence of ACS, thyroid dysfunction. Magnesium is slightly low, will replenish this orally and begin on daily supplement. She appears dry on labs and on exam. She is hydrating orally and receiving IV replenishment as well. Discussed case with Dr. Truong. In particular, we discussed possibility of PE given her recent SOB and near syncope. However, vital signs are reassuring, SOB has completely resolved and patient had a negative recent PE study. He advised against reimaging the patient. Orthostatic VS obtained by nursing staff. During this testing she did not endorse any dizziness or weakness. Patient is concerned that she has difficulty at home with self care, reports this is chronic and slowly worsening. Will speak with child care leader. Also contacted PCP office and made f/u appointment. Calculators aware of the patient was comfortable arrange home care. Patient was reassured by her findings here. I did advise that she will need continued follow-up with your primary care. She was ambulatory here in some of her lunch insisted. Nursing staff felt that she was stable with ambulation did not need any assistance. Patient I discussed new/worsening symptoms when to seek care urgently once again. All her questions and concerns were addressed and she is in agreement this plan. HPI General Mode of arrival: EMS . Date/Time Provider Initiated Documentation: 10/24/18 10:13 . Limitations to Documentation: no limitations . Information obtained by: patient, EMS and RN notes reviewed . History of Present Illness 68 year old F presents to the emergency department with the chief complaint of Near syncope, weakness, Quality is described as other (patient denies any pain), Patient started experiencing this minute(s) and it has been constant (weakness). No relieving factors improve symptom(s), Patient notes weakness; denies confusion, chest pain, cough, fever/chills, headaches, loss of appetite, nausea/vomiting, rash, shortness of breath and syncope. Patient did receive the following treatments prior to arrival, none Related Data Home Medications Medication Instructions Recorded Confirmed Vitamin B-12 500 mcg PO DAILY 02/20/13 10/24/18 glucosamine sulfate 2KCl 500 mg PO DAILY 02/20/13 10/24/18 lisinopril 40 mg PO DAILY 02/20/13 10/24/18 pantoprazole 40 mg PO DAILY 02/20/13 10/24/18 albuterol sulfate [ProAir HFA] 1 puff INHALATION Q4H PRN inhaler 09/22/16 10/24/18 glyburide-metformin 500 tab-cap PO BID tab-cap 09/22/16 10/24/18 quetiapine 100 mg PO DAILY 09/22/16 10/24/18 calcium carbonate-vitamin D3 1 ea PO BID 10/10/17 10/24/18 simvastatin 40 mg PO HS 10/10/17 10/24/18 naproxen sodium [Aleve] 2 tab PO PRN PRN 03/24/18 10/24/18 magnesium 200 mg PO DAILY #14 tab 10/24/18 Previous Rx's Medication Instructions Recorded magnesium 200 mg PO DAILY #14 tab 10/24/18 Allergies Allergy/AdvReac Type Severity Reaction Status Date / Time thiopental sodium Allergy Skin Rash Unverified 10/24/18 10:11 [From Pentothal] General Stated Complaint: Dizzy/Sync LYNNETTE: 3 Review of Systems Constitutional Reports as per HPI, Denies chills, Denies fever(s), Denies frequent falls, Denies headache(s), Denies lethargy, Denies poor appetite and Reports weakness (global, no focal weakness) Eyes Denies change in vision ENT Reports dizziness (since resolved) and Denies headache(s) Cardiovascular Reports as per HPI, Denies syncope (near syncope), Denies dyspnea and Denies dyspnea on exertion Respiratory Reports as per HPI, Denies chest congestion, Denies cough, Denies pain on inspiration, Denies pain with cough, Denies dyspnea, Denies dyspnea on exertion and Denies wheezing Gastrointestinal Reports as per HPI, Denies abdominal pain, Denies diarrhea, Denies nausea and Denies vomiting Musculoskeletal Reports as per HPI, Denies abnormal gait and Denies back pain Integumentary/Breasts Reports as per HPI and Denies rash Neurologic Reports as per HPI, Denies abnormal gait, Reports dizziness (since resolved), Denies syncope (near syncope), Denies frequent falls, Denies headache(s), Denies sensory deficit and Reports weakness (global, no focal weakness) Allergic/Immunologic Denies wheezing [facility] Medical History Asthma (Chronic) Diabetes mellitus (Chronic) HTN (hypertension) (Chronic) Hypercholesterolemia (Chronic) Diverticulitis of large intestine Restless legs Surgical History bladder suspension for incontinence Abdominal hysterectomy (~1979) Arthroplasty of knee Cholecystectomy Extraction of cataract Oophrectomy, Both (04/09/13) Social History Smoking/Tobacco Use Status: Former Tobacco Use Alcohol Intake: never Drug use: Never Do you feel safe at home: Yes Do you feel safe in your relationship?: Yes Exam Const General: cooperative, healthy appearing, comfortable, no acute distress and well developed Nutritional Appearance: average body habitus and well nourished Orientation: alert, awake and oriented x3 HENMT Head: normal to inspection Ears: hearing grossly normal bilaterally Mouth: moist mucous membranes Chest Chest: normal inspection of the chest, normal palpation of entire chest wall and no crepitus Resp Effort & Inspection: normal respiratory effort, able to speak in complete sentences and no respiratory distress Auscultation: clear to auscultation bilaterally, no rales, no rhonchi and no wheezes Cardio Rate: regular rate Rhythm: regular rhythm Heart Sounds: S1 normal and S2 normal GI Inspection: normal to inspection, no edema and non-distended Palpation: soft, no hepatosplenomegaly, not firm, no guarding, not rigid and nontender Auscultation: normal bowel sounds Back/Spine/Pelvis Back: no CVA tenderness Thoracic/Lumbar Spine: thoracic and lumbar spine normal to inspection Skin General skin exam: no rashes or lesions noted Trauma: no lacerations or abrasions Neuro General: alert, awake and oriented x3 Cranial Nerves: CN's II-XI intact bilaterally Cognition: normal cognition Speech: speech normal Gait: normal gait Motor: muscle tone normal throughout, strength 5/5 throughout, no pronator drift, no movement abnormalities noted and no fasciculations Sensory Exam: no sensory deficits noted Coordination: [id number] test normal and [id number] test normal Extrem General: normal to inspection, normal capillary refill, no pedal edema, no calf tenderness and normal gait Psych Appearance: grossly normal and well kempt Mental Status: mental status grossly normal Speech and Movement: speech and movement normal Course Vital Signs Temperature 36.4 C L 10/24/18 10:09 Pulse 67 10/24/18 10:09 Respiratory Rate 19 10/24/18 10:09 Blood Pressure 104/52 L 10/24/18 10:09 Pulse Oximetry 97 10/24/18 10:09 Temperature 36.4 C L 10/24/18 10:09 Temperature Source Skin 10/24/18 10:09 Pulse 67 10/24/18 10:09 Respiratory Rate 19 10/24/18 10:09 Respiratory Effort Non-Labored 10/24/18 10:09 Blood Pressure 104/52 L 10/24/18 10:09 Blood Pressure Position Sitting 10/24/18 10:09 Pulse Oximetry 97 10/24/18 10:09 Oxygen Delivery Method Room Air 10/24/18 10:09 Oxygen Flow Rate 0 10/24/18 10:09 Pain Level 0 10/24/18 10:09
[2018-10-24] MEDS: Normal Saline 1,000 ML 250 ML IV (10:45)
[2018-10-24 10:51] LABS: Abs Immature Grans 0.03 k/cumm (0.0-0.09); Absolute Basophil Count 0.02 k/cumm (0.0-0.2); Absolute Eosinophil Count 0.11 k/cumm (0.0-0.7); Absolute Lymphocyte Count 2.61 k/cumm (1.2-3.4); Absolute Neutrophil Count 7.53 k/cumm (1.2-6.7); Basophils % 0.2; HCT 40.2 % (36.0-46.0); Immature Grans % 0.3; Lymphocytes % 23.7; Mean Corp. HGB Concentration 32.3 g/dL (32.0-36.0); Mean Corpuscular Hemoglobin 25.6 pg (27.0-33.0); Mean Corpuscular Volume 79.3 fL (80-95); Mean Platelet Volume 9.1 fL (8.0-11.0); Monocytes % 6.4; Neutrophils % 68.4; Platelet Count 269 x1000/uL (130-400); RBC 5.07 m/cumm (4.00-5.20); RBC Distribution Width 15.7 % (11.7-14.6); White Blood Cell Count 11.01 k/cumm (4.4-10.8)
[2018-10-24 11:07] LABS: Bilirubin Small (Negative); Blood Negative (Negative); Clarity Clear; Glucose Negative (Negative); Ketones Trace mg/dL (Negative); Leukocyte Esterase Negative (Negative); Nitrite Negative (Negative); Specific Gravity >= 1.030 (1.005-1.025); Urobilinogen 0.2 EU/dL (Up TO 0.2)
[2018-10-24 11:07] LABS: ALT 33 U/L (12-78); AST 19 U/L (15-37); Albumin 3.7 g/dL (3.4-5.0); Alkaline Phosphatase 78 U/L (46-116); Anion Gap 9.4 mmol/L (3-11); BUN 19 mg/dL (7-18); Bilirubin, Total 0.6 mg/dL (0.2-1.0); CO2 28.6 mmol/L (21.0-32.0); CREATININE 1.05 mg/dL (0.55-1.02); Calcium 9.3 mg/dL (8.5-10.1); Chloride 102 mmol/L (98-107); Estimated GFR 51.96 (mL/min/1.73m2); Glucose 190 mg/dL (70-100); Magnesium 1.6 mg/dL (1.8-2.4); Potassium 3.6 mmol/L (3.5-5.1); Sodium 140 mmol/L (136-145); TSH 1.93 uIU/mL (0.358-3.74); Total Protein 7.4 g/dL (6.4-8.2)
[2018-10-24 11:12] LABS: Troponin I < 0.02 ng/mL (0.00-0.06)
[2018-10-24 11:16] LABS: INR 0.9 (0.9-1.1); PTT Activated 20.3 sec (21.0-31.4); Prothrombin Time 9.4 sec (9.3-11.0)
[2018-10-24 11:19] LABS: Bacteria Moderate HPF (Negative); C & S Indicated? No; Casts Negative LPF (Negative); Crystals Negative HPF (Negative); Epithelial Cells Moderate HPF (Negative); Mucus Moderate (Negative); RBC 0-2 (0-2); WBC 0-2 HPF (0-5)
[2018-10-24] MEDS: Magnesium Oxide 400 MG TAB PO (11:40)
== END 2018-10-24 12:32 | disposition home or self-care (01) ==
PROVIDERS: Emergency Provider Physician Assistant; PCP Nurse Practitioner Family
DX: E83.42 Hypomagnesemia (principal); E86.0 Dehydration; R55 Syncope and collapse; E11.9 Type 2 diabetes mellitus without complications; I10 Essential (primary) hypertension
CPT/HCPCS: 80053; 93005; 96360; 96361; 99285; 70450; 81003; 81015; 83735; 84443; 84484; 85025; 85610; 85730; 93010

== ENCOUNTER 2018-12-05 12:33 | Outpatient (REF) | payer MEDICARE, MEDICAID, SELFPAY ==
[2018-12-05 14:07] LABS: Abs Immature Grans 0.03 k/cumm (0.0-0.09); Absolute Basophil Count 0.06 k/cumm (0.0-0.2); Absolute Eosinophil Count 0.16 k/cumm (0.0-0.7); Absolute Lymphocyte Count 3.07 k/cumm (1.2-3.4); Absolute Monocyte Count 0.83 k/cumm (0.11-0.7); Absolute Neutrophil Count 7.11 k/cumm (1.2-6.7); Basophils % 0.5; Eosinophils % 1.4; HCT 39.3 % (36.0-46.0); HGB 12.7 g/dL (12.0-15.5); Immature Grans % 0.3; Lymphocytes % 27.3; Mean Corp. HGB Concentration 32.3 g/dL (32.0-36.0); Mean Corpuscular Hemoglobin 26.1 pg (27.0-33.0); Mean Corpuscular Volume 80.9 fL (80-95); Mean Platelet Volume 10.4 fL (8.0-11.0); Monocytes % 7.4; Neutrophils % 63.1; Platelet Count 270 x1000/uL (130-400); RBC 4.86 m/cumm (4.00-5.20); RBC Distribution Width 15.3 % (11.7-14.6); White Blood Cell Count 11.26 k/cumm (4.4-10.8)
[2018-12-05 14:18] LABS: ALT 25 U/L (12-78); AST 19 U/L (15-37); Albumin 2.9 g/dL (3.4-5.0); Alkaline Phosphatase 93 U/L (46-116); Anion Gap 10.3 mmol/L (3-11); BUN 14 mg/dL (7-18); Bilirubin, Total 0.3 mg/dL (0.2-1.0); CO2 28.7 mmol/L (21.0-32.0); CREATININE 0.74 mg/dL (0.55-1.02); Calcium 9.2 mg/dL (8.5-10.1); Chloride 103 mmol/L (98-107); Glucose 75 mg/dL (70-100); Magnesium 1.8 mg/dL (1.8-2.4); Potassium 3.9 mmol/L (3.5-5.1); Sodium 142 mmol/L (136-145)
== END 2018-12-05 12:53 ==
LOC: NCHCN 12:33
PROVIDERS: PCP Nurse Practitioner Family; Visit Provider Nurse Practitioner Family
DX: E83.42 Hypomagnesemia (principal); D64.9 Anemia, unspecified; E11.9 Type 2 diabetes mellitus without complications; D72.829 Elevated white blood cell count, unspecified
CPT/HCPCS: 80053; 83735; 85025

== ENCOUNTER 2019-04-24 08:00 | Emergency (ER) | payer MEDICARE, MEDICAID, SELFPAY ==
[2019-04-24 08:00] VITALS: BP 126/99; PULSE 73; RESP 20; TEMP 36.5; O2SAT 97
[2019-04-24 08:05] VITALS: BP 126/99; PULSE 74; O2SAT 96
--- NOTE | 2019-04-24 08:21 | W.ED.GENAD ---
Discharge Plan Disposition Patient Disposition: HOME Condition: Stable Discharge Details Chief Complaint: Abd Prob Clinical Impression: Diverticulitis Primary Care Provider: Yareli Gunderson ED Provider: Curtis Casiano Home Meds and New Rx's Prescriptions: New amoxicillin-pot clavulanate [Augmentin] 875-125 mg tablet 1 tab PO Q12H Qty: 14 RF: 0 Continued levalbuterol HCl 1.25 mg/3 mL solution for nebulization 1.25 mg IH Q4H RF: 0 polyethylene glycol 3350 [Miralax] 17 gram/dose powder 17 gm PO DAILY PRNRF: 0 Symbicort 160-4.5 mcg/actuation HFA aerosol inhaler 2 puff IH BID RF: 0 cetirizine 10 mg tablet 10 mg PO DAILY PRNRF: 0 sumatriptan succinate [Imitrex] 25 mg tablet 25 mg PO .once daily PRNRF: 0 quetiapine [Seroquel] 25 mg tablet 25 mg PO DAILY RF: 0 propranolol 20 mg tablet 20 mg PO BID RF: 0 primidone 50 mg tablet 50 mg PO DAILY RF: 0 mupirocin calcium 2 % cream 1 applic TP BID RF: 0 Flovent HFA 220 mcg/actuation HFA aerosol inhaler 2 puff IH BID RF: 0 ferrous gluconate 324 mg (38 mg iron) tablet 324 mg PO DAILY RF: 0 miconazole nitrate 2 % powder 1 applic TP DAILY RF: 0 lactulose 20 gram/30 mL solution 30 gm PO BID MDD 40 g PRN (Reason: mental confusion, constipation) Qty: 1200 RF: 0 quetiapine 100 MG tablet 100 mg PO DAILY RF: 0 glyburide-metformin 1 EACH tablet 500 tab-cap PO BID RF: 0 albuterol sulfate [ProAir HFA] 8.5 GM HFA aerosol inhaler 1 puff Inhalation Q4H PRN RF: 0 Vitamin B-12 500 MCG tablet extended release 500 mcg PO DAILY RF: 0 pantoprazole 40 MG tablet,delayed release (DR/EC) 40 mg PO DAILY RF: 0 lisinopril 40 MG tablet 40 mg PO DAILY RF: 0 glucosamine sulfate 2KCl 1,000 MG tablet 500 mg PO DAILY RF: 0 simvastatin 40 MG tablet 40 mg PO HS RF: 0 calcium carbonate-vitamin D3 1 EACH tablet 1 ea PO BID RF: 0 naproxen sodium [Aleve] 220 mg Capsule 2 tab PO PRN PRNRF: 0 magnesium 200 mg tablet 200 mg PO DAILY Qty: 14 RF: 0 Discharge Instructions Instructions: Diverticulitis (ED) Additional Instructions: Please take your antibiotic as prescribed and you may advance your diet as tolerated by discomfort or nausea. Stay well-hydrated. Return immediately to the emergency department for any new or significant worsening of symptoms otherwise follow-up with your primary care provider early next week for reassessment. Referrals: Yareli Gunderson [Primary Care Provider] - (You should follow-up with primary care provider early next week for reassessment) Medical Decision Making Patient presenting the emergency department for chief complaint of nausea and not feeling well. Patient states that yesterday she took a laxative due to not feeling well. Patient had a single hard bowel movement with some blood noted around it. Patient does state history of hemorrhoids in the past but states they have not bled for a while. Patient denies any fever chills, chest pain, shortness of breath and states she is mostly concerned for general malaise and poor appetite. Physical exam shows mild diffuse tenderness to the abdomen but point tenderness to the left upper quadrant and epigastrium, patient does have hemorrhoids present on rectal exam but Hemoccult is negative. Plan to check labs and CT imaging. Review of labs show nondiagnostic CBC with no leukocytosis, CMP showing mildly decreased magnesium and otherwise normal LFTs and low lipase, urine with small amount of leukocyte esterase and 10-20 WBCs reflex and culture. Again reassessed patient who denies any urinary symptoms so plan to wait on culture pending UTI antibiotics. Spoke with radiologist in regards to CT imaging and he stated concern for a mild sigmoid diverticulitis given diverticuli present with some bowel wall thickening but no abscess or perforation noted. Discussed discharge of patient which she states that she feels significantly better, is requesting food, and denies any further nausea. I feel that this is reassuring sign. Plan to start patient on Augmentin twice daily for 1 week, have patient follow-up with primary care provider early next week for reassessment, and return for any new or worsening symptoms. After discussion of diagnosis and plan of care patient has no further needs, questions, or concerns and states clear understanding to return to the emergency department for any worsening symptoms. HPI General Mode of arrival: EMS. Date/Time Provider Initiated Documentation: 04/24/19 08:02. Limitations to Documentation: no limitations. Information obtained by: patient and RN notes reviewed. History of Present Illness 68 year old F presents to the emergency department with the chief complaint of Nausea, not feeling well, Quality is described as other (Denies pain or discomfort), Patient started experiencing this day(s) (1) and it has been constant. No relieving factors improve symptom(s), No exacerbating factors reported . Patient did receive the following treatments prior to arrival, other (Laxative last night) Related Data Home Medications Medication Instructions Recorded Confirmed Vitamin B-12 500 mcg PO DAILY 02/20/13 04/24/19 glucosamine sulfate 2KCl 500 mg PO DAILY 02/20/13 04/24/19 lisinopril 40 mg PO DAILY 02/20/13 04/24/19 pantoprazole 40 mg PO DAILY 02/20/13 04/24/19 albuterol sulfate [ProAir HFA] 1 puff INHALATION Q4H PRN inhaler 09/22/16 04/24/19 glyburide-metformin 500 tab-cap PO BID tab-cap 09/22/16 04/24/19 quetiapine 100 mg PO DAILY 09/22/16 04/24/19 calcium carbonate-vitamin D3 1 ea PO BID 10/10/17 04/24/19 simvastatin 40 mg PO HS 10/10/17 04/24/19 naproxen sodium [Aleve] 2 tab PO PRN PRN 03/24/18 04/24/19 magnesium 200 mg PO DAILY #14 tab 10/24/18 04/24/19 budesonide-formoterol HFA 160 2 puff IH BID 11/08/18 04/24/19 mcg-4.5 mcg/actuation aerosol inhaler cetirizine 10 mg tablet 10 mg PO DAILY PRN tab 11/08/18 04/24/19 ferrous gluconate 324 mg (38 mg 324 mg PO DAILY tab 11/08/18 04/24/19 iron) tablet fluticasone propionate 220 2 puff IH BID gm 11/08/18 04/24/19 mcg/actuation HFA aerosol inhaler levalbuterol HCl 1.25 mg/3 mL 1.25 mg IH Q4H 11/08/18 04/24/19 solution for nebulization miconazole nitrate 2 % topical 1 applic TP DAILY 11/08/18 04/24/19 powder mupirocin calcium 2 % topical cream 1 applic TP BID 11/08/18 04/24/19 polyethylene glycol 3350 17 17 gm PO DAILY PRN 11/08/18 04/24/19 gram/dose oral powder primidone 50 mg tablet 50 mg PO DAILY tab 11/08/18 04/24/19 propranolol 20 mg tablet 20 mg PO BID 11/08/18 04/24/19 quetiapine 25 mg tablet 25 mg PO DAILY tab 11/08/18 04/24/19 sumatriptan succinate 25 mg tablet 25 mg PO .once daily PRN tab 11/08/18 04/24/19 lactulose 20 gram/30 mL oral 30 gm PO BID PRN #1200 ml MDD 40 g 03/14/19 04/24/19 solution amoxicillin-pot clavulanate 1 tab PO Q12H #14 tab 04/24/19 [Augmentin] Previous Rx's Medication Instructions Recorded magnesium 200 mg PO DAILY #14 tab 10/24/18 lactulose 20 gram/30 mL oral 30 gm PO BID PRN #1200 ml MDD 40 g 03/14/19 solution amoxicillin-pot clavulanate 1 tab PO Q12H #14 tab 04/24/19 [Augmentin] Allergies Allergy/AdvReac Type Severity Reaction Status Date / Time thiopental sodium Allergy Skin Rash Unverified 04/24/19 08:10 [From Pentothal] General Stated Complaint: Abd Prob LYNNETTE: 3 Review of Systems Constitutional Constitutional: Denies chills, Denies fever(s) and Reports poor appetite Cardiovascular Cardiovascular: Denies chest pain and Denies dyspnea Respiratory Respiratory: Denies cough and Denies dyspnea Gastrointestinal Gastrointestinal: Reports as per HPI, Denies abdominal pain, Denies melena, Reports hematochezia, Denies change in bowel habits, Reports constipation, Denies diarrhea, Reports nausea and Denies vomiting Genitourinary Genitourinary: Denies dysuria Integumentary/Breasts Skin/Breast: Denies rash [facility] Medical History Anemia (Chronic) Anxiety (Chronic) Asthma (Chronic) Benign essential tremor (Acute) Carpal tunnel syndrome (Acute) Chronic low back pain (Acute) COPD (chronic obstructive pulmonary disease) (Chronic) Diabetes mellitus (Chronic) Diverticulitis of large intestine 01/2013. inpt abx x2d. 05/2013 stable sx. Diverticulosis (Acute) DNI (do not intubate) (Chronic) DNR (do not resuscitate) (Chronic) Eczema (Acute) GERD (gastroesophageal reflux disease) (Chronic) Goals of care, counseling/discussion (Acute) HTN (hypertension) (Chronic) Hypercholesterolemia (Chronic) Hypomagnesemia (Acute) Learning disability (Acute) Leukocytosis (leucocytosis) (Acute) Onychomycosis (Acute) Palliative care patient (Chronic) Restless legs takes Premapaxil Sleep disorder (Acute) Social isolation (Acute) Vertigo (Acute) Surgical History bladder suspension for incontinence Abdominal hysterectomy (~1979) for heavy bleeding. Arthroplasty of knee L knee Dr Fuentes Cholecystectomy laparoscopic 03/2011 Extraction of cataract in [place] Oophrectomy, Both (04/09/13) laparotomy. aoc and kk. Family History Sister Heart disease Social History Smoking/Tobacco Use Status: Former Tobacco Use Tobacco: How many years used: 40 Alcohol Intake: former Drug use: Never Caregiver/Support person: No Household members: none Housing: apartment Number of Children: 0 Communication Needs: Cannot Read Education Level: middle school Details: finished 6th grade only Do you need help understanding health information?: Always current occupation: always disabled; worked as [employer] for 5 years in her late teens, early 20s Pets and animals: No What is your relationship status?: How often do you talk on the phone with friends or family?: never How often do you get together with friends or relatives?: never Panel score (0-1 are the most socially isolated patients): 0 What type of physical activity do you participate in: walking and irregular exercise Duration: < 15 minutes/day Frequency: 1-2 times per week Special pankaj needs: No Agree to transfusion: Yes Seatbelt use: always Drive intox or ride w/intox milk wagon driver: No Water heater temp set <120 deg: Yes Working smoke detector in home: Yes Firearms in home: No Do you feel safe at home: Yes Do you feel safe in your relationship?: Yes Additional Social history: she was very briefly in her teens was with Praneeth Cee for 15 years; he in 2016, she thinks, from colon cancer, bled out no children, no family, no DPOA. Exam Const General: cooperative Orientation: alert, awake and oriented x3 Resp Effort & Inspection: normal respiratory effort and able to speak in complete sentences Auscultation: clear to auscultation bilaterally Cardio Rate: regular rate Rhythm: regular rhythm Heart Sounds: S1 normal and S2 normal GI Palpation: soft, no hepatosplenomegaly, not firm, no guarding, no masses, no pulsatile masses, not rigid, no splenomegaly and tender in the LUQ; not at McBurney's point, not periumbilically, Ralph's sign negative and psoas sign negative Auscultation: normal bowel sounds Rectal Exam - female: normal sphincter tone, No fissure, heme negative stool, hemorrhoids and No laceration Back/Spine/Pelvis Back: no CVA tenderness Neuro General: alert, awake, oriented x3, gait normal and moves all extremities Course Vital Signs Vital signs: Vital Signs Temperature 36.5 C 04/24/19 08:00 Pulse 73 04/24/19 08:00 Respiratory Rate 20 04/24/19 08:00 Blood Pressure 126/99 H 04/24/19 08:00 Pulse Oximetry 97 04/24/19 08:00 Temperature 36.5 C 04/24/19 08:00 Temperature Source Temporal Artery Scan 04/24/19 08:00 Pulse 73 04/24/19 08:00 Respiratory Rate 20 04/24/19 08:00 Respiratory Effort Non-Labored 04/24/19 08:06 Blood Pressure 126/99 H 04/24/19 08:00 Blood Pressure Position Sitting 04/24/19 08:00 Pulse Oximetry 97 04/24/19 08:00 Pain Level 0 04/24/19 08:07
[2019-04-24] MEDS: Ondansetron O.D.T. 4 MG TABEF PO (08:38)
[2019-04-24 08:40] LABS: Abs Immature Grans 0.02 k/cumm (0.0-0.09); Absolute Basophil Count 0.05 k/cumm (0.0-0.2); Absolute Eosinophil Count 0.18 k/cumm (0.0-0.7); Absolute Lymphocyte Count 1.44 k/cumm (1.2-3.4); Absolute Monocyte Count 0.81 k/cumm (0.11-0.7); Absolute Neutrophil Count 6.89 k/cumm (1.2-6.7); Basophils % 0.5; Eosinophils % 1.9; HCT 38.1 % (36.0-46.0); HGB 12.2 g/dL (12.0-15.5); Immature Grans % 0.2; Lymphocytes % 15.3; Mean Corpuscular Hemoglobin 25.3 pg (27.0-33.0); Mean Corpuscular Volume 78.9 fL (80-95); Mean Platelet Volume 8.9 fL (8.0-11.0); Monocytes % 8.6; Neutrophils % 73.5; Platelet Count 241 x1000/uL (130-400); RBC 4.83 m/cumm (4.00-5.20); RBC Distribution Width 14.7 % (11.7-14.6); White Blood Cell Count 9.39 k/cumm (4.4-10.8)
[2019-04-24 08:54] LABS: Lipase 69 U/L (73-393)
[2019-04-24 08:57] LABS: ALT 29 U/L (14-59); AST 19 U/L (15-37); Albumin 3.5 g/dL (3.4-5.0); Alkaline Phosphatase 89 U/L (46-116); Anion Gap 9.6 mmol/L (3-11); BUN 15 mg/dL (7-18); Bilirubin, Total 0.4 mg/dL (0.2-1.0); CO2 27.4 mmol/L (21.0-32.0); CREATININE 0.83 mg/dL (0.55-1.02); Calcium 8.9 mg/dL (8.5-10.1); Chloride 103 mmol/L (98-107); Glucose 163 mg/dL (70-100); Magnesium 1.7 mg/dL (1.8-2.4); Sodium 140 mmol/L (136-145)
[2019-04-24 09:11] LABS: Bilirubin Negative (Negative); Blood Negative (Negative); Clarity Clear (Clear); Glucose Negative (Negative); Ketones Negative (Negative); Leukocyte Esterase Small (Negative); Nitrite Negative (Negative); Specific Gravity 1.015 (1.005-1.025); Urobilinogen 0.2 EU/dL (Up TO 0.2); pH 6.5 (5-8)
[2019-04-24 09:25] LABS: Bacteria Few HPF (Negative); C & S Indicated? Yes; Casts Negative LPF (Negative); Crystals Negative HPF (Negative); Epithelial Cells Rare HPF (Negative); Mucus Trace (Negative); Other Cells Rare Renal (Negative); RBC Negative (0-2)
[2019-04-24] MEDS: Magnesium Oxide 400 MG TAB PO (09:30)
[2019-04-24] MEDS: Normal Saline Flush 10 ML SYR IVP (09:32)
[2019-04-24] MEDS: Normal Saline 500 ML IV (09:32)
--- NOTE | 2019-04-24 09:55 | DI.CT_ITS ---
EXAM: CT ABDOMEN PELVIS W CLINICAL HISTORY: Abdominal pain, nausea. TECHNIQUE: The study was carried out according to the usual protocol with an intravenous injection o f 100 cc of Omnipaque 350 and oral ingestion of dilute contrast material. COMPARISON: CT CHEST PE CTA from 10/20/2018 FINDINGS: The lung bases are unremarkable. The liver is unremarkable. The patient is status post cholecystecto my. There is no evidence of biliary dilatation. The pancreas is somewhat atrophic. Spleen is unrema rkable with note made of a small splenule and an adjacent tiny calcification is seen. Also small den sities in the lower pole of the right kidney would be consistent with nephrolithiasis. There is no e vidence of hydronephrosis. The adrenals are intact. There is no evidence of bowel obstruction. The re is nothing to suggest an acute appendix. There are scattered diverticula involving the distal sabrina cending and sigmoid colonic segments. There is mild wall thickening in the sigmoid. No adjacent infl ammatory changes are apparent. The bladder is suboptimally distended. The reproductive organs as visu alized appear intact. There is no evidence of a hernia. There are atherosclerotic changes involving the aorta without evidence of an aneurysm. There are degenerative changes involving the lower dorsa l and lumbar spine. No acute bony abnormality is seen. IMPRESSION: There is evidence of diverticulosis and wall thickening in the sigmoid is identified and would be con sistent with mild diverticulitis. There is no abscess or evidence of perforation. There is evidence of nephrolithiasis without evidence of hydronephrosis and small cysts are demonstrated in the left ki dney. The patient is status post cholecystectomy.
[2019-04-24] MEDS: Omnipaque 350 MG/ML 100 ML BTL IJ (10:05)
[2019-04-24] MEDS: Breeza Beverage 473 ML BTL PO ×2 (10:06→10:08)
[2019-04-24] MEDS: Amoxicillin 875/Clav. 125 TAB PO (11:20)
[2019-04-24 11:23] VITALS: BP 124/78; PULSE 68; RESP 18; TEMP 36.9; O2SAT 98
--- NOTE | 2019-04-24 17:48 | NUR.NOTE ---
Nursing Note: Referral faxed to PCP for follow up next week. Lakeisha To.
== END 2019-04-24 11:33 | disposition home or self-care (01) ==
PROVIDERS: Emergency Provider Nurse Practitioner Family; PCP Nurse Practitioner Family
DX: K57.30 Diverticulosis of large intestine without perforation or abscess without bleeding (principal); J44.9 Chronic obstructive pulmonary disease, unspecified; I10 Essential (primary) hypertension; Z87.891 Personal history of nicotine dependence
CPT/HCPCS: 36415; 80053; 83690; 96360; 96361; 99285; 74177; 81003; 81015; 83735; 85025; 87086; 99284; J3490

== ENCOUNTER 2019-04-28 18:32 | Emergency (ER) | payer MEDICARE, MEDICAID, SELFPAY ==
[2019-04-28 18:38] VITALS: BP 152/81; PULSE 73; RESP 26; TEMP 36.3; O2SAT 97
--- NOTE | 2019-04-28 18:41 | W.ED.GENAD ---
Discharge Plan Disposition Patient Disposition: HOME Condition: Improving Discharge Details Chief Complaint: SOB Clinical Impression: COPD (chronic obstructive pulmonary disease) Primary Care Provider: Yareli Gunderson ED Provider: Modesto Yanes Home Meds and New Rx's Prescriptions: Continued levalbuterol HCl 1.25 mg/3 mL solution for nebulization 1.25 mg IH Q4H RF: 0 polyethylene glycol 3350 [Miralax] 17 gram/dose powder 17 gm PO DAILY PRNRF: 0 Symbicort 160-4.5 mcg/actuation HFA aerosol inhaler 2 puff IH BID RF: 0 cetirizine 10 mg tablet 10 mg PO DAILY PRNRF: 0 sumatriptan succinate [Imitrex] 25 mg tablet 25 mg PO .once daily PRNRF: 0 quetiapine [Seroquel] 25 mg tablet 25 mg PO DAILY RF: 0 propranolol 20 mg tablet 20 mg PO BID RF: 0 primidone 50 mg tablet 50 mg PO DAILY RF: 0 mupirocin calcium 2 % cream 1 applic TP BID RF: 0 Flovent HFA 220 mcg/actuation HFA aerosol inhaler 2 puff IH BID RF: 0 ferrous gluconate 324 mg (38 mg iron) tablet 324 mg PO DAILY RF: 0 miconazole nitrate 2 % powder 1 applic TP DAILY RF: 0 lactulose 20 gram/30 mL solution 30 gm PO BID MDD 40 g PRN (Reason: mental confusion, constipation) Qty: 1200 RF: 0 quetiapine 100 MG tablet 100 mg PO DAILY RF: 0 glyburide-metformin 1 EACH tablet 500 tab-cap PO BID RF: 0 albuterol sulfate [ProAir HFA] 8.5 GM HFA aerosol inhaler 1 puff Inhalation Q4H PRN RF: 0 Vitamin B-12 500 MCG tablet extended release 500 mcg PO DAILY RF: 0 pantoprazole 40 MG tablet,delayed release (DR/EC) 40 mg PO DAILY RF: 0 lisinopril 40 MG tablet 40 mg PO DAILY RF: 0 glucosamine sulfate 2KCl 1,000 MG tablet 500 mg PO DAILY RF: 0 simvastatin 40 MG tablet 40 mg PO HS RF: 0 calcium carbonate-vitamin D3 1 EACH tablet 1 ea PO BID RF: 0 naproxen sodium [Aleve] 220 mg Capsule 2 tab PO PRN PRNRF: 0 magnesium 200 mg tablet 200 mg PO DAILY Qty: 14 RF: 0 amoxicillin-pot clavulanate [Augmentin] 875-125 mg tablet 1 tab PO Q12H Qty: 14 RF: 0 Discharge Instructions Instructions: COPD (Chronic Obstructive Pulmonary Disease) (ED) Additional Instructions: Follow-up with Yareli Gunderson for recheck if not improving in 5 days time. Home to rest today. Continue the previously prescribed antibiotics. Continue your inhalers as previously prescribed. Return to the emergency department for any acute concern. Medical Decision Making 68-year-old female with history of COPD presents from home with hours of cough as well as shortness of breath that was minimally improved with her home inhalers. She is finishing a course of Augmentin for diverticulitis which she states feels improved. She arrives with normal room air oxygenation and is afebrile. Discrete end expiratory wheeze present on exam and patient given DuoNeb updraft. No abdominal pain and do not have clinical suspicion for perforation. Referred for chest x-ray which is without evidence of effusion, consolidation, or acute finding. Her laboratories are reassuring but with note of white blood cell count 13. Patient both objectively and subjectively improved. She is in no distress and feels better. Will discharge to home. She will continued the course of previously prescribed Augmentin. She will follow-up with regular doctor if not improving in 5 to 7 days time. Lab Data Lab results reviewed: Yes I reviewed the patient's lab results. Labs: Laboratory Results - last 24 hr 04/28/19 04/28/19 18:52 19:10 WBC 13.66 H RBC 4.74 Hgb 11.9 L Hct 37.0 MCV 78.1 L MCH 25.1 L MCHC 32.2 RDW 14.6 Plt Count 314 MPV 9.5 Immature Gran % 0.2 Neutrophils % 69.6 Lymphocytes % 21.7 Monocytes % 6.1 Eosinophils % 2.0 Basophils % 0.4 Absolute Neutrophils 9.51 H Absolute Lymphocytes 2.96 Absolute Monocytes 0.83 H Absolute Eosinophils 0.27 Absolute Basophils 0.05 Sodium 139 Potassium 3.9 Chloride 103 Carbon Dioxide 26.6 Anion Gap 9.4 BUN 9 Creatinine 0.77 Estimated GFR/1.73 m2 >= 60.00 Glucose 115 H Calcium 9.1 Magnesium 1.7 L Total Bilirubin 0.3 AST 17 ALT 29 Alkaline Phosphatase 88 Troponin I < 0.05 Total Protein 7.3 Albumin 3.7 ECG Data Attestation: I personally reviewed and interpreted this ECG (s) as follows: Interpretation: Normal sinus rhythm, rate 78, QRS is narrow, there is no ST segment elevation present. HPI General Mode of arrival: ambulatory. Date/Time Provider Initiated Documentation: 04/28/19 18:33. Limitations to Documentation: no limitations. Information obtained by: patient. History of Present Illness 68 year old F presents to the emergency department with the chief complaint of 68-year-old female with hours of shortness of breath, described as moderate, Quality is described as dull, and is localized to the chest. Patient reports no radiation. Patient started experiencing this hour(s) and it has been constant. No relieving factors improve symptom(s), No exacerbating factors reported . Patient notes cough. Patient did receive the following treatments prior to arrival, none Related Data Home Medications Medication Instructions Recorded Confirmed Vitamin B-12 500 mcg PO DAILY 02/20/13 04/24/19 glucosamine sulfate 2KCl 500 mg PO DAILY 02/20/13 04/24/19 lisinopril 40 mg PO DAILY 02/20/13 04/24/19 pantoprazole 40 mg PO DAILY 02/20/13 04/24/19 albuterol sulfate [ProAir HFA] 1 puff INHALATION Q4H PRN inhaler 09/22/16 04/24/19 glyburide-metformin 500 tab-cap PO BID tab-cap 09/22/16 04/24/19 quetiapine 100 mg PO DAILY 09/22/16 04/24/19 calcium carbonate-vitamin D3 1 ea PO BID 10/10/17 04/24/19 simvastatin 40 mg PO HS 10/10/17 04/24/19 naproxen sodium [Aleve] 2 tab PO PRN PRN 03/24/18 04/24/19 magnesium 200 mg PO DAILY #14 tab 10/24/18 04/24/19 budesonide-formoterol HFA 160 2 puff IH BID 11/08/18 04/24/19 mcg-4.5 mcg/actuation aerosol inhaler cetirizine 10 mg tablet 10 mg PO DAILY PRN tab 11/08/18 04/24/19 ferrous gluconate 324 mg (38 mg 324 mg PO DAILY tab 11/08/18 04/24/19 iron) tablet fluticasone propionate 220 2 puff IH BID gm 05/10/19 10/24/19 mcg/actuation HFA aerosol inhaler levalbuterol HCl 1.25 mg/3 mL 1.25 mg IH Q4H 11/08/18 04/24/19 solution for nebulization miconazole nitrate 2 % topical 1 applic TP DAILY 11/08/18 04/24/19 powder mupirocin calcium 2 % topical cream 1 applic TP BID 11/08/18 04/24/19 polyethylene glycol 3350 17 17 gm PO DAILY PRN 11/08/18 04/24/19 gram/dose oral powder primidone 50 mg tablet 50 mg PO DAILY tab 11/08/18 04/24/19 propranolol 20 mg tablet 20 mg PO BID 11/08/18 04/24/19 quetiapine 25 mg tablet 25 mg PO DAILY tab 11/08/18 04/24/19 sumatriptan succinate 25 mg tablet 25 mg PO .once daily PRN tab 11/08/18 04/24/19 lactulose 20 gram/30 mL oral 30 gm PO BID PRN #1200 ml MDD 40 g 03/14/19 04/24/19 solution amoxicillin-pot clavulanate 1 tab PO Q12H #14 tab 04/24/19 [Augmentin] Previous Rx's Medication Instructions Recorded magnesium 200 mg PO DAILY #14 tab 10/24/18 lactulose 20 gram/30 mL oral 30 gm PO BID PRN #1200 ml MDD 40 g 03/14/19 solution amoxicillin-pot clavulanate 1 tab PO Q12H #14 tab 04/24/19 [Augmentin] Allergies Allergy/AdvReac Type Severity Reaction Status Date / Time thiopental sodium Allergy Skin Rash Unverified 04/24/19 08:10 [From Pentothal] General LYNNETTE: 3 Review of Systems Narrative: Recent diagnosis of diverticulitis for which the patient is taking Augmentin. She denies abdominal pain. She did develop a cough this evening. 6 systems reviewed and otherwise negative REPLACED BY [facility] Medical History Anemia (Chronic) Anxiety (Chronic) Asthma (Chronic) Benign essential tremor (Acute) Carpal tunnel syndrome (Acute) Chronic low back pain (Acute) COPD (chronic obstructive pulmonary disease) (Chronic) Diabetes mellitus (Chronic) Diverticulitis of large intestine 01/2013. inpt abx x2d. 05/2013 stable sx. Diverticulosis (Acute) DNI (do not intubate) (Chronic) DNR (do not resuscitate) (Chronic) Eczema (Acute) GERD (gastroesophageal reflux disease) (Chronic) Goals of care, counseling/discussion (Acute) HTN (hypertension) (Chronic) Hypercholesterolemia (Chronic) Hypomagnesemia (Acute) Learning disability (Acute) Leukocytosis (leucocytosis) (Acute) Onychomycosis (Acute) Palliative care patient (Chronic) Restless legs takes Premapaxil Sleep disorder (Acute) Social isolation (Acute) Vertigo (Acute) Surgical History bladder suspension for incontinence Abdominal hysterectomy (~1979) for heavy bleeding. Arthroplasty of knee L knee Dr Fuentes Cholecystectomy laparoscopic 03/2011 Extraction of cataract in [place] Oophrectomy, Both (04/09/13) laparotomy. aoc and kk. Family History Sister Heart disease Social History Smoking/Tobacco Use Status: Former Tobacco Use Tobacco: How many years used: 40 Alcohol Intake: former Drug use: Never Caregiver/Support person: No Household members: none Housing: apartment Number of Children: 0 Communication Needs: Cannot Read Education Level: middle school Details: finished 6th grade only Do you need help understanding health information?: Always current occupation: always disabled; worked as [employer] for 5 years in her late teens, early 20s Pets and animals: No What is your relationship status?: How often do you talk on the phone with friends or family?: never How often do you get together with friends or relatives?: never Panel score (0-1 are the most socially isolated patients): 0 What type of physical activity do you participate in: walking and irregular exercise Duration: < 15 minutes/day Frequency: 1-2 times per week Special pankaj needs: No Agree to transfusion: Yes Seatbelt use: always Drive intox or ride w/intox driver operator: No Water heater temp set <120 deg: Yes Working smoke detector in home: Yes Firearms in home: No Do you feel safe at home: Yes Do you feel safe in your relationship?: Yes Additional Social history: she was very briefly in her teens was with Praneeth Cee for 15 years; he in 2016, she thinks, from colon cancer, bled out no children, no family, no DPOA. Exam Narrative Exam Narrative: GEN: awake, alert, oriented 3. Pleasant, well groomed, interactive. HEAD: Normocephalic, atraumatic ENT: Mucous membranes moist, oropharynx unremarkable, External ear exam unremarkable EYES: PERRL, EOMI NECK: Full ROM, no GALLO, no menigismus CHEST/RESP: Nontender, diminished with few end expiratory wheeze CARDIOVASCULAR: RRR, no murmur, rub yusuf. 2+ Rad pulse bilateral ABDOMEN: Soft, nontender, no mass. +Bowel sounds EXT: Full ROM, no edema, no rash Neuro: Grossly normal neurologic exam, conversant, interactive. Psych: Speech fluent, thoughts congruent, affect normal
[2019-04-28 19:06] VITALS: RESP 1; RESP 8
[2019-04-28] MEDS: Albuterol/Ipratropium 3 ML UPD VIAL UPD (19:06)
[2019-04-28] MEDS: methylPREDNISolone SUCC 125 MG VIAL IVP (19:10)
[2019-04-28] MEDS: Normal Saline Flush 10 ML SYR IVP (19:14)
[2019-04-28 19:26] LABS: Abs Immature Grans 0.03 k/cumm (0.0-0.09); Absolute Basophil Count 0.05 k/cumm (0.0-0.2); Absolute Eosinophil Count 0.27 k/cumm (0.0-0.7); Absolute Lymphocyte Count 2.96 k/cumm (1.2-3.4); Absolute Monocyte Count 0.83 k/cumm (0.11-0.7); Absolute Neutrophil Count 9.51 k/cumm (1.2-6.7); Basophils % 0.4; HGB 11.9 g/dL (12.0-15.5); Immature Grans % 0.2; Lymphocytes % 21.7; Mean Corp. HGB Concentration 32.2 g/dL (32.0-36.0); Mean Corpuscular Hemoglobin 25.1 pg (27.0-33.0); Mean Corpuscular Volume 78.1 fL (80-95); Mean Platelet Volume 9.5 fL (8.0-11.0); Monocytes % 6.1; Neutrophils % 69.6; Platelet Count 314 x1000/uL (130-400); RBC 4.74 m/cumm (4.00-5.20); RBC Distribution Width 14.6 % (11.7-14.6); White Blood Cell Count 13.66 k/cumm (4.4-10.8)
--- NOTE | 2019-04-28 19:30 | DI.RAD_ITS ---
EXAM: XR CHEST 2V PA LATERAL INDICATION: cough and SOB. COMPARISON: XR PORTABLE CHEST AP from 10/20/2018 TECHNIQUE: 2D digital imaging was performed. FINDINGS: Heart size and pulmonary vasculature are within normal limits. The lungs are clear. No effusion or pneumothorax is identified. Stable degenerative changes are present in the spine. IMPRESSION: No acute pulmonary process.
--- NOTE | 2019-04-28 19:38 | DI.VRAD_ITS ---
PROCEDURE INFORMATION: Exam: XR Chest, 2 Views Exam date and time: 04/28/2019 7:31 PM Clinical history: 68 years old, female; Cough and shortness of breath; Patient HX: SOB today, cough, asthma TECHNIQUE: Imaging protocol: XR of the chest Views: 2 views. COMPARISON: SC XR PORTABLE CHEST AP 10/20/2018 3:52 AM FINDINGS: Lungs: Unremarkable. No consolidation. Pleural space: Unremarkable. No pleural effusion. No pneumothorax. Heart/Mediastinum: Unremarkable. No cardiomegaly. Bones/joints: Stable. IMPRESSION: No acute findings. Dictated and Authenticated by: Alex Yang MD. Ordering:HELADIO Salvador MD
[2019-04-28 19:40] LABS: ALT 29 U/L (14-59); AST 17 U/L (15-37); Albumin 3.7 g/dL (3.4-5.0); Alkaline Phosphatase 88 U/L (46-116); Anion Gap 9.4 mmol/L (3-11); BUN 9 mg/dL (7-18); Bilirubin, Total 0.3 mg/dL (0.2-1.0); CO2 26.6 mmol/L (21.0-32.0); CREATININE 0.77 mg/dL (0.55-1.02); Calcium 9.1 mg/dL (8.5-10.1); Chloride 103 mmol/L (98-107); Glucose 115 mg/dL (70-100); Magnesium 1.7 mg/dL (1.8-2.4); Potassium 3.9 mmol/L (3.5-5.1); Sodium 139 mmol/L (136-145); Total Protein 7.3 g/dL (6.4-8.2)
[2019-04-28 19:41] LABS: Troponin I < 0.05 ng/mL (0.00-0.06)
[2019-04-28 19:55] VITALS: BP 107/61; PULSE 73; RESP 18; TEMP 36.4; O2SAT 97
== END 2019-04-28 20:39 | disposition home or self-care (01) ==
PROVIDERS: Emergency Provider Emergency Medicine; PCP Nurse Practitioner Family
DX: J44.9 Chronic obstructive pulmonary disease, unspecified (principal); E11.9 Type 2 diabetes mellitus without complications; I10 Essential (primary) hypertension; Z87.891 Personal history of nicotine dependence
CPT/HCPCS: 36415; 80053; 93005; 94640; 96374; 99285; 71046; 83735; 84484; 85025; 93010; 99284; J2930; J7620

== ENCOUNTER 2019-05-13 19:49 | Emergency (ER) | payer MEDICARE, MEDICAID, SELFPAY ==
[2019-05-13 19:57] VITALS: BP 142/81; PULSE 81; RESP 18; RESP 20; TEMP 36.7; O2SAT 97
--- NOTE | 2019-05-13 20:06 | ED.GENADUL_ITS ---
Discharge Plan Disposition Patient Disposition: HOME Condition: Good Discharge Details Chief Complaint: Anxiety Clinical Impression: Anxiety Primary Care Provider: Yareli Gunderson ED Provider: Benson Harper [place] Meds and New Rx's Prescriptions: Continued levalbuterol HCl 1.25 mg/3 mL solution for nebulization 1.25 mg IH Q4H RF: 0 polyethylene glycol 3350 [Miralax] 17 gram/dose powder 17 gm PO DAILY PRNRF: 0 Symbicort 160-4.5 mcg/actuation HFA aerosol inhaler 2 puff IH BID RF: 0 cetirizine 10 mg tablet 10 mg PO DAILY PRNRF: 0 sumatriptan succinate [Imitrex] 25 mg tablet 25 mg PO .once daily PRNRF: 0 quetiapine [Seroquel] 25 mg tablet 25 mg PO DAILY RF: 0 propranolol 20 mg tablet 20 mg PO BID RF: 0 primidone 50 mg tablet 50 mg PO DAILY RF: 0 mupirocin calcium 2 % cream 1 applic TP BID RF: 0 Flovent HFA 220 mcg/actuation HFA aerosol inhaler 2 puff IH BID RF: 0 ferrous gluconate 324 mg (38 mg iron) tablet 324 mg PO DAILY RF: 0 miconazole nitrate 2 % powder 1 applic TP DAILY RF: 0 lactulose 20 gram/30 mL solution 30 gm PO BID MDD 40 g PRN (Reason: mental confusion, constipation) Qty: 1200 RF: 0 quetiapine 100 MG tablet 100 mg PO DAILY RF: 0 glyburide-metformin 1 EACH tablet 500 tab-cap PO BID RF: 0 albuterol sulfate [ProAir HFA] 8.5 GM HFA aerosol inhaler 1 puff Inhalation Q4H PRN RF: 0 Vitamin B-12 500 MCG tablet extended release 500 mcg PO DAILY RF: 0 pantoprazole 40 MG tablet,delayed release (DR/EC) 40 mg PO DAILY RF: 0 lisinopril 40 MG tablet 40 mg PO DAILY RF: 0 glucosamine sulfate 2KCl 1,000 MG tablet 500 mg PO DAILY RF: 0 simvastatin 40 MG tablet 40 mg PO HS RF: 0 calcium carbonate-vitamin D3 1 EACH tablet 1 ea PO BID RF: 0 naproxen sodium [Aleve] 220 mg Capsule 2 tab PO PRN PRNRF: 0 magnesium 200 mg tablet 200 mg PO DAILY Qty: 14 RF: 0 Discharge Instructions Instructions: Anxiety (ED) Additional Instructions: Please contact your primary care tomorrow for follow-up and discussion of management of anxiety. Return to ED if you develop fever, cough, increasing shortness of breath, chest pain, abdominal pain, other concerns or problems. Referrals: Yareli Gunderson [Primary Care Provider] - Medical Decision Making Patient complaining of shortness of breath but has normal pulse ox, no respiratory distress, clear lungs. She has had presentations like this in the past. Suspect that this is all anxiety related. Will check an EKG and chest x- ray. Will give dose of oral Ativan and reevaluate. Patient received a total of 1 mg of Ativan. She is now doing much better. Her EKG is unchanged from previous. Her chest x-ray shows nothing acute. She is asking to go home. Patient will be discharged home. Will refer to primary care for further evaluation and possible management of her anxiety. Return to the emergency d epartment for fever, chest pain, abdominal pain, increasing shortness of breath. Medical Records Medical records reviewed: Yes I reviewed the patient's medical records. ECG Data Attestation: I personally reviewed and interpreted this ECG (s) as follows: Interpretation: Sinus tachycardia at 105. Normal axis and intervals. Nonspecific ST changes which are unchanged from previous done in April of this year. Fair amount of trembling artifact noted. HPI General Mode of arrival: EMS . Date/Time Provider Initiated Documentation: 05/13/19 20:03 . Limitations to Documentation: no limitations . Information obtained by: patient, RN notes reviewed and old records reviewed . HPI Narrative: Patient presents by ambulance from home with complaint of shortness of breath. Patient reports she became short of breath tonight. She denies having fever, cough, chest pain, vomiting, abdominal pain, other complaints. She is clearly very anxious, rocking on the bed, tremoring, weeping. She has history of anxiety and history of presentations to ED multiple times for shortness of breath. She lives alone. She immediately reports that she has no way back home. Related Data Home Medications Medication Instructions Recorded Confirmed Vitamin B-12 500 mcg PO DAILY 02/20/13 05/13/19 glucosamine sulfate 2KCl 500 mg PO DAILY 02/20/13 05/13/19 lisinopril 40 mg PO DAILY 02/20/13 05/13/19 pantoprazole 40 mg PO DAILY 02/20/13 05/13/19 albuterol sulfate [ProAir HFA] 1 puff INHALATION Q4H PRN inhaler 09/22/16 05/13/19 glyburide-metformin 500 tab-cap PO BID tab-cap 09/22/16 05/13/19 quetiapine 100 mg PO DAILY 09/22/16 05/13/19 calcium carbonate-vitamin D3 1 ea PO BID 10/10/17 05/13/19 simvastatin 40 mg PO HS 10/10/17 05/13/19 naproxen sodium [Aleve] 2 tab PO PRN PRN 03/24/18 05/13/19 magnesium 200 mg PO DAILY #14 tab 10/24/18 05/13/19 budesonide-formoterol HFA 160 2 puff IH BID 11/08/18 05/13/19 mcg-4.5 mcg/actuation aerosol inhaler cetirizine 10 mg tablet 10 mg PO DAILY PRN tab 11/08/18 05/13/19 ferrous gluconate 324 mg (38 mg 324 mg PO DAILY tab 11/08/18 05/13/19 iron) tablet fluticasone propionate 220 2 puff IH BID gm 11/08/18 05/13/19 mcg/actuation HFA aerosol inhaler levalbuterol HCl 1.25 mg/3 mL 1.25 mg IH Q4H 11/08/18 05/13/19 solution for nebulization miconazole nitrate 2 % topical 1 applic TP DAILY 11/08/18 05/13/19 powder mupirocin calcium 2 % topical cream 1 applic TP BID 11/08/18 05/13/19 polyethylene glycol 3350 17 17 gm PO DAILY PRN 11/08/18 05/13/19 gram/dose oral powder primidone 50 mg tablet 50 mg PO DAILY tab 11/08/18 05/13/19 propranolol 20 mg tablet 20 mg PO BID 11/08/18 05/13/19 quetiapine 25 mg tablet 25 mg PO DAILY tab 11/08/18 05/13/19 sumatriptan succinate 25 mg tablet 25 mg PO .once daily PRN tab 11/08/18 05/13/19 lactulose 20 gram/30 mL oral 30 gm PO BID PRN #1200 ml MDD 40 g 03/14/19 05/13/19 solution Previous Rx's Medication Instructions Recorded magnesium 200 mg PO DAILY #14 tab 10/24/18 lactulose 20 gram/30 mL oral 30 gm PO BID PRN #1200 ml MDD 40 g 03/14/19 solution Allergies Allergy/AdvReac Type Severity Reaction Status Date / Time thiopental sodium Allergy Skin Rash Unverified 04/24/19 08:10 [From Pentothal] General Stated Complaint: Anxiety LYNNETTE: 3 Review of Systems Narrative: As documented in HPI otherwise negative as below. Const: no fever, chills, weakness Resp: SOB; no cough, pleuritic pain CV: no CP, diaphoresis, edema, syncope GI: no abdominal pain, nausea, vomiting, diarrhea Neuro: no headache, numbness, focal weakness, confusion PFSH Medical History Anemia (Chronic) Anxiety (Chronic) Benign essential tremor (Acute) Carpal tunnel syndrome (Acute) Chronic low back pain (Acute) COPD (chronic obstructive pulmonary disease) (Chronic) Diabetes mellitus (Chronic) Diverticulitis of large intestine 01/2013. inpt abx x2d. 05/2013 stable sx. Diverticulosis (Acute) Eczema (Acute) GERD (gastroesophageal reflux disease) (Chronic) HTN (hypertension) (Chronic) Hypercholesterolemia (Chronic) Palliative care patient (Chronic) Restless legs takes Premapaxil Sleep disorder (Acute) Social isolation (Acute) Vertigo (Acute) Surgical History bladder suspension for incontinence Abdominal hysterectomy (~1979) for heavy bleeding. Arthroplasty of knee L knee Dr Fuentes Cholecystectomy laparoscopic 03/2011 Extraction of cataract in [place] Oophrectomy, Both (04/09/13) laparotomy. aoc and kk. Social History Smoking/Tobacco Use Status: Former Tobacco Use Tobacco: How many years used: 40 Alcohol Intake: former Drug use: Never Caregiver/Support person: No Household members: none Housing: apartment Number of Children: 0 Communication Needs: Cannot Read Education Level: middle school Details: finished 6th grade only Do you need help understanding health information?: Always current occupation: always disabled; worked as [employer] for 5 years in her late teens, early 20s Pets and animals: No What is your relationship status?: How often do you talk on the phone with friends or family?: never How often do you get together with friends or relatives?: never Panel score (0-1 are the most socially isolated patients): 0 What type of physical activity do you participate in: walking and irregular exercise Duration: < 15 minutes/day Frequency: 1-2 times per week Special pankaj needs: No Agree to transfusion: Yes Seatbelt use: always Drive intox or ride w/intox hi low truck driver: No Water heater temp set <120 deg: Yes Working smoke detector in home: Yes Firearms in home: No Do you feel safe at home: Yes Do you feel safe in your relationship?: Yes Additional Social history: she was very briefly in her teens was with Praneeth Cee for 15 years; he in 2015, she thinks, from colon cancer, bled out no children, no family, no DPOA. Exam Narrative Exam Narrative: Vitals: Afebrile. Mildly hypertensive otherwise normal vital signs with normal room air pulse oximetry. Const: Obese female who is clearly anxious but is not in respiratory distress. HEENT: NC/AT. Normal facial exam. Eyes: Normal conjunctiva and sclera. Neck: Supple. Trachea midline. Lungs: Normal respiratory effort. Lungs are clear. There are no adventitious sounds. Cor: RRR without murmur/gallop. Good radial pulses. Neuro: A+O x 3. CN grossly in tact. Good strength and no focal deficit. Ext: No C/C/E. No calf tenderness. Psych: Anxious, rocking on stretcher, weepy. Normal speech and mental status. Course Vital Signs Vital signs: Vital Signs Temperature 98.1 F 05/13/19 19:57 Pulse 81 05/13/19 19:57 Respiratory Rate 18 05/13/19 19:57 Blood Pressure 142/81 H 05/13/19 19:57 Pulse Oximetry 97 05/13/19 19:57 Temperature 98.1 F 05/13/19 19:57 Temperature Source Temporal Artery Scan 05/13/19 19:57 Pulse 81 05/13/19 19:57 Respiratory Rate 20 05/13/19 19:57 Respiratory Effort Non-Labored 05/13/19 19:57 Respiratory Depth Normal 05/13/19 19:57 Respiratory Pattern Normal 05/13/19 19:57 Blood Pressure 142/81 H 05/13/19 19:57 Blood Pressure Position Sitting 05/13/19 19:57 Pulse Oximetry 97 05/13/19 19:57 Oxygen Delivery Method Room Air 05/13/19 19:57 Oxygen Flow Rate 0 05/13/19 19:57 Pain Level 0 05/13/19 19:57
--- NOTE | 2019-05-13 20:15 | DI.RAD_ITS ---
EXAM: XR CHEST 2V PA LATERAL INDICATION: SOB. COMPARISON: XR CHEST 2V PA LATERAL from 04/28/2019 TECHNIQUE: 2D digital imaging was performed. FINDINGS: Heart size and pulmonary vasculature are within normal limits. The lungs are clear. No pleural effusion or pneumothorax is present. No acute osseous abnormalities identified. IMPRESSION: No acute pulmonary process.
[2019-05-13] MEDS: LORazepam 0.5 MG TAB PO ×2 (20:24→21:05)
--- NOTE | 2019-05-13 21:06 | NUR.NOTE ---
Pt reports feeling sob this evening. LSCTA, denies fevers, chest pain. Pt repeatedly asking for a nebulizer, asking to be admitted to hospital. Med with ativan a/o. Speaking in full sentences, RA sat 97-99%
--- NOTE | 2019-05-13 21:19 | DI.VRAD_ITS ---
PROCEDURE INFORMATION: Exam: XR Chest, 2 Views Exam date and time: 05/13/2019 9:11 PM Clinical history: 68 years old, female; Other: SOB TECHNIQUE: Imaging protocol: XR of the chest Views: 2 views. COMPARISON: CR XR CHEST 2V PA LATERAL 04/28/2019 7:25 PM FINDINGS: Lungs: Unremarkable. No consolidation. Pleural space: Unremarkable. No pleural effusion. No pneumothorax. Heart/Mediastinum: Unremarkable. No cardiomegaly. Bones/joints: Degenerative changes of the spine. IMPRESSION: No acute findings. Dictated and Authenticated by: aGreth Regalado MD. Ordering:TARYN Knowles MD
[2019-05-13 22:04] VITALS: PULSE 99; RESP 18; TEMP 37.2; O2SAT 98
--- NOTE | 2019-05-13 22:26 | NUR.NOTE ---
Pt feeling more calm, asking for DC home. Discharge instructions reviewed with verbal understanding. aware to f/u with pcp as needed. ambulated to exit with steady gait to await RCT.
== END 2019-05-13 22:45 | disposition home or self-care (01) ==
PROVIDERS: Emergency Provider Emergency Medicine; PCP Nurse Practitioner Family
DX: F41.9 Anxiety disorder, unspecified (principal); I10 Essential (primary) hypertension; J44.9 Chronic obstructive pulmonary disease, unspecified; E11.9 Type 2 diabetes mellitus without complications
CPT/HCPCS: 93005; 99283; 71046; 93010

== ENCOUNTER 2019-05-21 01:41 | Outpatient (CLI) | payer MEDICARE, MEDICAID, SELFPAY ==
[2019-05-21] MEDS: Inhaler, Assist Device 1 EACH MC (08:30)
[2019-05-21] MEDS: Albuterol HFA 18 GM 200 PUFF INH IH (08:30)
--- NOTE | 2019-05-22 08:56 | PFT_ITS ---
DATE OF SERVICE: May 21, 2019 REQUESTING PROVIDER: Kelly Gomez Spirometry shows mild obstructive airways disease with some but not significant bronchodilator response. Lung volumes show no evidence of restriction. Diffusion capacity normal. Airways resistance normal. IMPRESSION: Mild obstructive airways disease with some but not significant bronchodilator response. On flow volume loop also flattened expiratory loop. Therefore, if clinically indicated, the patient may need further work-up for possible intrathoracic large airway obstruction. Clinical correlation therefore recommended.
== END 2019-05-21 02:01 ==
PROVIDERS: PCP Nurse Practitioner Family; Visit Provider Nurse Practitioner Family
DX: J44.9 Chronic obstructive pulmonary disease, unspecified (principal)
CPT/HCPCS: 94060; 94150; 94726; 94729

== ENCOUNTER 2019-06-16 10:25 | Outpatient (REF) | payer MEDICARE, MEDICAID, SELFPAY ==
[2019-06-16 19:11] LABS: PROTEIN 12.7 mg/dL
[2019-06-16 19:13] LABS: COMMENT (LAB VIEW ONLY) 152.94 mg/dL
[2019-06-16 19:14] LABS: COMMENT (LAB VIEW ONLY) 152.68 mg/dL; Prot/Crea Ur Ratio 0.08
== END 2019-06-16 10:45 ==
LOC: NCHCN 10:25
PROVIDERS: PCP Nurse Practitioner Family; Visit Provider Nurse Practitioner Family
DX: E11.9 Type 2 diabetes mellitus without complications (principal); I10 Essential (primary) hypertension
CPT/HCPCS: 82043; 82565; 82570; 84156

== ENCOUNTER 2019-07-01 20:46 | Emergency (ER) | payer MEDICARE, MEDICAID, SELFPAY ==
[2019-07-01 20:45] VITALS: BP 133/87; PULSE 74; RESP 21; TEMP 36.7; O2SAT 98
[2019-07-01 21:15] LABS: Lactate 0.9 mmol/L (0.6-1.4)
--- NOTE | 2019-07-01 21:17 | ED.GENADUL_ITS ---
Discharge Plan Disposition Patient Disposition: HOME Condition: Good Discharge Details Chief Complaint: Abd Prob Clinical Impression: Gastritis Primary Care Provider: Sebastián Stephens ED Provider: Hal Olmstead Home Meds and New Rx's Prescriptions: New sucralfate [Carafate] 1 gram tablet 1 gm PO QACHS Qty: 60 RF: 0 No Action levalbuterol HCl 1.25 mg/3 mL solution for nebulization 1.25 mg IH Q4H RF: 0 polyethylene glycol 3350 [Miralax] 17 gram/dose powder 17 gm PO DAILY PRNRF: 0 Symbicort 160-4.5 mcg/actuation HFA aerosol inhaler 2 puff IH BID RF: 0 cetirizine 10 mg tablet 10 mg PO DAILY PRNRF: 0 sumatriptan succinate [Imitrex] 25 mg tablet 25 mg PO .once daily PRNRF: 0 quetiapine [Seroquel] 25 mg tablet 25 mg PO DAILY RF: 0 propranolol 20 mg tablet 20 mg PO BID RF: 0 primidone 50 mg tablet 50 mg PO DAILY RF: 0 mupirocin calcium 2 % cream 1 applic TP BID RF: 0 Flovent HFA 220 mcg/actuation HFA aerosol inhaler 2 puff IH BID RF: 0 ferrous gluconate 324 mg (38 mg iron) tablet 324 mg PO DAILY RF: 0 miconazole nitrate 2 % powder 1 applic TP DAILY RF: 0 lactulose 20 gram/30 mL solution 30 gm PO BID MDD 40 g PRN (Reason: mental confusion, constipation) Qty: 1200 RF: 0 quetiapine 100 MG tablet 100 mg PO DAILY RF: 0 glyburide-metformin 1 EACH tablet 500 tab-cap PO BID RF: 0 albuterol sulfate [ProAir HFA] 8.5 GM HFA aerosol inhaler 1 puff Inhalation Q4H PRN RF: 0 Vitamin B-12 500 MCG tablet extended release 500 mcg PO DAILY RF: 0 pantoprazole 40 MG tablet,delayed release (DR/EC) 40 mg PO DAILY RF: 0 lisinopril 40 MG tablet 40 mg PO DAILY RF: 0 glucosamine sulfate 2KCl 1,000 MG tablet 500 mg PO DAILY RF: 0 simvastatin 40 MG tablet 40 mg PO HS RF: 0 calcium carbonate-vitamin D3 1 EACH tablet 1 ea PO BID RF: 0 naproxen sodium [Aleve] 220 mg Capsule 2 tab PO PRN PRNRF: 0 magnesium 200 mg tablet 200 mg PO DAILY Qty: 14 RF: 0 Discharge Instructions Instructions: Gastritis (ED) Additional Instructions: At this time your CT scan shows no evidence of life-threatening problem per our radiologist. Your laboratory work-up is reassuring. Your blood levels are stable. I suspect you have a mild gastric ulcer that is causing your pain. Please follow-up with your surgeon at your scheduled appointment in 48 hours. Please avoid any spicy foods. Please take the Carafate as directed. Please take Maalox or Pepto-Bismol every 6 hours if your symptoms persist. If you notice any worsening of your symptoms, or any new symptoms such as vomiting, diarrhea, fever, chills, shortness of breath, chest pain, numbness, weakness, or fainting , please return immediately to the emergency department for reevaluation. Please follow up with your primary care provider as soon as possible for reassessment and reevaluation. As always, it was a pleasure participating in your medical care today. Referrals: Sebastián Stephens NP [Primary Care Provider] - Medical Decision Making This is a 69-year-old female with past medical history of hypertension, high cholesterol, diabetes, COPD, who presents today for evaluation of abdominal pain for last 24 hours, she is a poor historian. She also does admit to occasional bloody stools, denies any in the last 24 to 48 hours. She is scheduled to have colonoscopy with her surgeon. She is not on blood thinners. Exam demonstrates mild abdominal tenderness, no history of vomiting or diarrhea though. Rectal exam demonstrates no gross bright red blood per rectum, however there is evidence of questionable heme positive stool although this is notably minimal. Differential is broad, but does include GI ulcer, or abdominal mass obstruction or ileus secondary to her age and previous surgeries. Get a CT scan of the abdomen pelvis, gently rehydrate, get basic labs, evaluate for unlikely cardiac etiology and reassess. We will give a GI cocktail and also start Protonix bolus and infusion at this time. 11:11 PM Patient symptoms are completely resolved, she is actively asking to be discharged. Laboratory work-up demonstrates stable hemoglobin, MCV is low at 78 suggesting chronic component. Electrolytes normal, renal function stable. TSH and lipase normal. EKG, troponin unremarkable. Urinalysis shows no evidence of infection. CT scan is negative for acute process per virtual radiology. With the patient's complete resolution of her symptoms as well as her repeat notably unremarkable exam I do feel that she is stable for discharge. She has follow-up in 48 hours with surgery for EGD and colonoscopy. Signs and symptoms at this time appear clinically consistent with gastritis, and inconsistent with acute cardiac etiology, or life-threatening surgical abnormality. We will give Carafate for home use. Recommend continued close follow-up. I have extensively reviewed the treatment plan and discharge instructions with the patient. I have addressed all patient concerns at this time. The patient was made aware of what symptoms to monitor for that would warrant a return to the emergency department. Discussed the plan with the patient, they demonstrate verbal understanding and agreement with our assessment and plan at this time. EKG 21: 12 Rate 70, intervals normal, sinus rhythm, no significant ST elevations or depressions. Small Q waves in lead III and V1. Inverted T wave in V1, V2, however these are present on prior EKG from 05/13/2019. No evidence of STEMI. No evidence of severe right heart strain. FINDINGS: Liver: Diffuse moderate fatty liver infiltration. No focal hepatic lesions. Gallbladder and bile ducts: Previous cholecystectomy. No biliary dilatation. Pancreas: Nonspecific pancreatic atrophy. Spleen: Normal. No splenomegaly. Adrenals: Normal. No mass. Kidneys and ureters: Bilateral punctate nonobstructive renal calculi. Left upper pole dilated calyx at 12 mm with a peripheral rounded 3 mm calcification. No acute hydronephrosis. Stomach and bowel: Diverticulosis of the colon without evidence of acute diverticulitis. No bowel obstruction. Small bowel loops are unremarkable. No edema. No dilatation. Appendix: No evidence of appendicitis. Intraperitoneal space: Unremarkable. No free air. No significant fluid collection. Vasculature: Unremarkable. No abdominal aortic aneurysm. Lymph nodes: Unremarkable. No enlarged lymph nodes. Bladder: Unremarkable as visualized. Reproductive: Previous hysterectomy. Bones/joints: Degenerative lumbar spine disease. No acute lumbar vertebral pathology. Soft tissues: Unremarkable. IMPRESSION: 1. No acute findings of the abdomen or pelvis. 2. Fatty liver changes. 3. Previous cholecystectomy and hysterectomy. 4. Nonobstructive bilateral renal calculi. Left upper dilated calyx with a peripheral rounded 3 mm calculus. 5. Colonic diverticulosis without evidence of acute diverticulitis. Thank you for allowing us to participate in the care of your patient. Dictated and Authenticated by: Jayson Goodman MD 07/01/2019 10:33 PM Eastern Time ([place] & [place]) HPI General Date/Time Provider Initiated Documentation: 07/01/19 20:53 . HPI Narrative: This is a 69-year-old female who is a bit of a poor historian, with a past medical history of COPD, diabetes, hypertension, GERD, who presents today for evaluation of abdominal pain. Patient does not add much to history but states that she does not feel well in her belly. She states that her abdomen has had mild discomfort which she is not able to further define. It is been present for the last day. She has had no associated vomiting diarrhea chest pain exertional chest pain syncope numbness tingling or weakness. She denies any bowel or bladder incontinence, she denies any hematuria, or dysuria or increase in urinary frequency. She does admit to having occasional bright red blood in her stools over the last few days, and states that she is scheduled to have a colonoscopy and EGD with our surgical team later this month. She denies any other complaints at this time. She is not on any blood thinners. Past surgical history is positive for cholecystectomy, hysterectomy, and the patient states appendectomy as well however it is not on her surgical list. Related Data Home Medications Medication Instructions Recorded Confirmed Vitamin B-12 500 mcg PO DAILY 02/20/13 07/01/19 glucosamine sulfate 2KCl 500 mg PO DAILY 02/20/13 07/01/19 lisinopril 40 mg PO DAILY 02/20/13 07/01/19 pantoprazole 40 mg PO DAILY 02/20/13 07/01/19 albuterol sulfate [ProAir HFA] 1 puff INHALATION Q4H PRN inhaler 09/22/16 07/01/19 glyburide-metformin 500 tab-cap PO BID tab-cap 09/22/16 07/01/19 quetiapine 100 mg PO DAILY 09/22/16 07/01/19 calcium carbonate-vitamin D3 1 ea PO BID 10/10/17 07/01/19 simvastatin 40 mg PO HS 10/10/17 07/01/19 naproxen sodium [Aleve] 2 tab PO PRN PRN 03/24/18 07/01/19 magnesium 200 mg PO DAILY #14 tab 10/24/18 07/01/19 budesonide-formoterol HFA 160 2 puff IH BID 11/08/18 07/01/19 mcg-4.5 mcg/actuation aerosol inhaler cetirizine 10 mg tablet 10 mg PO DAILY PRN tab 11/08/18 07/01/19 ferrous gluconate 324 mg (38 mg 324 mg PO DAILY tab 11/08/18 07/01/19 iron) tablet fluticasone propionate 220 2 puff IH BID gm 11/08/18 07/01/19 mcg/actuation HFA aerosol inhaler levalbuterol HCl 1.25 mg/3 mL 1.25 mg IH Q4H 11/08/18 07/01/19 solution for nebulization miconazole nitrate 2 % topical 1 applic TP DAILY 11/08/18 07/01/19 powder mupirocin calcium 2 % topical cream 1 applic TP BID 11/08/18 07/01/19 polyethylene glycol 3350 17 17 gm PO DAILY PRN 11/08/18 07/01/19 gram/dose oral powder primidone 50 mg tablet 50 mg PO DAILY tab 11/08/18 07/01/19 propranolol 20 mg tablet 20 mg PO BID 11/08/18 07/01/19 quetiapine 25 mg tablet 25 mg PO DAILY tab 11/08/18 07/01/19 sumatriptan succinate 25 mg tablet 25 mg PO .once daily PRN tab 11/08/18 07/01/19 lactulose 20 gram/30 mL oral 30 gm PO BID PRN #1200 ml MDD 40 g 03/14/19 07/01/19 solution sucralfate [Carafate] 1 gm PO QACHS #60 tab 07/01/19 Previous Rx's Medication Instructions Recorded magnesium 200 mg PO DAILY #14 tab 10/24/18 lactulose 20 gram/30 mL oral 30 gm PO BID PRN #1200 ml MDD 40 g 03/14/19 solution sucralfate [Carafate] 1 gm PO QACHS #60 tab 07/01/19 Allergies Allergy/AdvReac Type Severity Reaction Status Date / Time thiopental sodium Allergy Skin Rash Unverified 07/01/19 21:31 [From Pentothal] General Stated Complaint: Abd Prob LYNNETTE: 3 Review of Systems All systems reviewed & are unremarkable except as noted in HPI and below PFSH Social History Smoking/Tobacco Use Status: Former Tobacco Use Tobacco: How many years used: 40 Alcohol Intake: former Drug use: Never Substance use type: does not use Caregiver/Support person: No Household members: none Housing: apartment Number of Children: 0 Communication Needs: Cannot Read Education Level: middle school Details: finished 6th grade only Do you need help understanding health information?: Always current occupation: always disabled; worked as [employer] for 5 years in her late teens, early 20s Pets and animals: No What is your relationship status?: How often do you talk on the phone with friends or family?: never How often do you get together with friends or relatives?: never Panel score (0-1 are the most socially isolated patients): 0 What type of physical activity do you participate in: walking and irregular exercise Duration: < 15 minutes/day Frequency: 1-2 times per week Special pankaj needs: No Agree to transfusion: Yes Seatbelt use: always 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 Exam Narrative Exam Narrative: 1.Const: Well-nourished, Well-developed, appearing stated age 2.Eyes: PERRL, no conjunctival injection, and symmetrical lids. 3.ENT: Atraumatic external nose and ears. Moist MM. Neck: Symmetric, trachea midline, No thyromegaly. 4.CVS: +S1/S2, No murmurs or gallops. Peripheral pulses 2+ and equal in all extremities. Brisk capillary refill in all extremities. 5.RESP: Unlabored respiratory effort. Clear to auscultation bilaterally. No wheezes rales or rhonchi 6.GI: Soft,Nondistended, No hepatosplenomegaly. No guarding or rebound. Mild diffuse tenderness, primarily in the epigastric region as well as the mid abdominal quadrants. No significant palpable hernia. Rectal exam was performed with female nurse Blanca at bedside, skin tags are present, small hemorrhoids are present. No gross red blood on digital rectal exam however stool Hemoccult is questionably minimally positive. 7.MSK: Normocephalic/Atraumatic, Extremities w/o deformity or ttp No cyanosis or clubbing, Normal movement of all extremities 8.Skin: Warm, Dry. No rashes or lesions. 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 Sensation grossly intact, no focal neurologic deficits. 10.Psych: (AAO) x3. Appropriate mood and affect Course Vital Signs Vital signs: Vital Signs Temperature 36.7 C 07/01/19 20:45 Pulse 74 07/01/19 20:45 Respiratory Rate 21 07/01/19 20:45 Blood Pressure 133/87 07/01/19 20:45 Pulse Oximetry 98 07/01/19 20:45 Temperature 36.7 C 07/01/19 20:45 Temperature Source Skin 07/01/19 20:45 Pulse 74 07/01/19 20:45 Respiratory Rate 21 07/01/19 20:45 Respiratory Effort Non-Labored 07/01/19 21:02 Blood Pressure 133/87 07/01/19 20:45 Blood Pressure Position Supine 07/01/19 20:45 Pulse Oximetry 98 07/01/19 20:45 Oxygen Delivery Method Room Air 07/01/19 20:45 Oxygen Flow Rate 0 07/01/19 20:45 Pain Level 9 07/01/19 20:45
[2019-07-01 21:19] LABS: Abs Immature Grans 0.04 k/cumm (0.0-0.09); Absolute Basophil Count 0.06 k/cumm (0.0-0.2); Absolute Eosinophil Count 0.27 k/cumm (0.0-0.7); Absolute Lymphocyte Count 4.13 k/cumm (1.2-3.4); Absolute Monocyte Count 0.91 k/cumm (0.11-0.7); Absolute Neutrophil Count 7.26 k/cumm (1.2-6.7); Basophils % 0.5; Eosinophils % 2.1; HCT 36.9 % (36.0-46.0); Immature Grans % 0.3; Lymphocytes % 32.6; Mean Corp. HGB Concentration 32.5 g/dL (32.0-36.0); Mean Corpuscular Hemoglobin 25.5 pg (27.0-33.0); Mean Corpuscular Volume 78.5 fL (80-95); Mean Platelet Volume 9.7 fL (8.0-11.0); Monocytes % 7.2; Neutrophils % 57.3; Platelet Count 292 x1000/uL (130-400); RBC Distribution Width 14.7 % (11.7-14.6); White Blood Cell Count 12.67 k/cumm (4.4-10.8)
[2019-07-01] MEDS: Normal Saline 500 ML IV (21:19)
[2019-07-01] MEDS: Pantoprazole 40 MG VIAL 80 MG IVP (21:21)
[2019-07-01] MEDS: PANTOPRAZOLE 80 MG in Normal Saline 100 ML 10 MG IV (21:23)
[2019-07-01 21:31] LABS: PTT Activated 25.6 sec (21.0-31.4); Prothrombin Time 9.8 sec (9.3-11.0)
[2019-07-01 21:35] LABS: ALT 25 U/L (14-59); AST 19 U/L (15-37); Albumin 3.7 g/dL (3.4-5.0); Alkaline Phosphatase 94 U/L (46-116); Anion Gap 10.1 mmol/L (3-11); BUN 15 mg/dL (7-18); Bilirubin, Total 0.3 mg/dL (0.2-1.0); CO2 27.9 mmol/L (21.0-32.0); CREATININE 0.69 mg/dL (0.55-1.02); Calcium 9.1 mg/dL (8.5-10.1); Chloride 101 mmol/L (98-107); Glucose 109 mg/dL (74-106); Lipase 94 U/L (73-393); Potassium 3.7 mmol/L (3.5-5.1); Sodium 139 mmol/L (136-145); Total Protein 7.4 g/dL (6.4-8.2)
[2019-07-01 21:36] LABS: Troponin I < 0.05 ng/Ml (<0.06)
[2019-07-01 21:43] LABS: TSH (W/Ref FT4) 2.99 uIU/mL (0.36-3.74)
[2019-07-01] MEDS: Omnipaque 350 MG/ML 100 ML BTL IJ (21:50)
--- NOTE | 2019-07-01 21:58 | DI.CT_ITS ---
EXAM: CT ABDOMEN PELVIS W CLINICAL HISTORY: epigastric and generalized abdominal discomfort, G TECHNIQUE: COMPARISON: CT ABDOMEN PELVIS W from 04/24/2019 FINDINGS: CT examination of the abdomen and pelvis was performed with bolus infusion of 100 cc of Omnipaque 35 0. Images obtained through the lung bases are unremarkable. No significant abdominal wall hernia. No significant abdominal or pelvic adenopathy. Liver spleen and pancreas are normal. Prior cholecystectomy noted. No biliary dilatation. Abdominal aorta and major branches appear intact. Appendix is not specifically visualized but there is no evidence of appendicitis or diverticulitis. There is cysts cystic structure of the left upper renal pole which contains a calcification. This ma y arise from a calyx or represent cortical cyst. No hydronephrosis. Small bilateral renal calculi n oted. No ureterolithiasis. IMPRESSION: Nonobstructive bilateral renal calculi. No evidence of acute process.
[2019-07-01 22:25] LABS: Bilirubin Negative (Negative); Blood Negative (Negative); Clarity Clear (Clear); Glucose Negative (Negative); Ketones Negative (Negative); Leukocyte Esterase Small (Negative); Nitrite Negative (Negative); Urobilinogen 0.2 EU/dL (Up TO 0.2)
[2019-07-01 22:29] LABS: Bacteria Rare HPF (Negative); C & S Indicated? Yes; Casts Negative LPF (Negative); Crystals Negative HPF (Negative); Epithelial Cells Rare HPF (Negative); Mucus Negative (Negative); RBC Negative HPF (0-2)
--- NOTE | 2019-07-01 22:33 | DI.VRAD_ITS ---
PROCEDURE INFORMATION: Exam: CT Abdomen And Pelvis With Contrast Exam date and time: 07/01/2019 8:57 PM Age: 69 years old Clinical indication: Other: Epigastric and generalized abdominal pain; Prior surgery; Surgery date: 6+ months; Surgery type: Cholecystectomy, hysterectomy oophorectomy; Patient HX: Epigastric pain and generalized abdominal pain for 3 days TECHNIQUE: Imaging protocol: Computed tomography of the abdomen and pelvis with intravenous contrast. Radiation optimization: All CT scans at this facility use at least one of these dose optimization techniques: automated exposure control; mA and/or kV adjustment per patient size (includes targeted exams where dose is matched to clinical indication); or iterative reconstruction. Contrast material: OMNIPAQUE 350; Contrast volume: 100 ml; Contrast route: I RAC; COMPARISON: CT ABDOMEN PELVIS W 04/24/2019 9:46 AM FINDINGS: Liver: Diffuse moderate fatty liver infiltration. No focal hepatic lesions. Gallbladder and bile ducts: Previous cholecystectomy. No biliary dilatation. Pancreas: Nonspecific pancreatic atrophy. Spleen: Normal. No splenomegaly. Adrenals: Normal. No mass. Kidneys and ureters: Bilateral punctate nonobstructive renal calculi. Left upper pole dilated calyx at 12 mm with a peripheral rounded 3 mm calcification. No acute hydronephrosis. Stomach and bowel: Diverticulosis of the colon without evidence of acute diverticulitis. No bowel obstruction. Small bowel loops are unremarkable. No edema. No dilatation. Appendix: No evidence of appendicitis. Intraperitoneal space: Unremarkable. No free air. No significant fluid collection. Vasculature: Unremarkable. No abdominal aortic aneurysm. Lymph nodes: Unremarkable. No enlarged lymph nodes. Bladder: Unremarkable as visualized. Reproductive: Previous hysterectomy. Bones/joints: Degenerative lumbar spine disease. No acute lumbar vertebral pathology. Soft tissues: Unremarkable. IMPRESSION: 1. No acute findings of the abdomen or pelvis. 2. Fatty liver changes. 3. Previous cholecystectomy and hysterectomy. 4. Nonobstructive bilateral renal calculi. Left upper dilated calyx with a peripheral rounded 3 mm calculus. 5. Colonic diverticulosis without evidence of acute diverticulitis. Dictated and Authenticated by: Jayson Goodman MD. Ordering:TED Hong MD
[2019-07-01 23:28] VITALS: BP 122/74; PULSE 78; RESP 16; TEMP 36.7; O2SAT 98
== END 2019-07-01 23:30 | disposition home or self-care (01) ==
PROVIDERS: Emergency Provider Student in an Organized Health Care Education/Training Program; PCP Nurse Practitioner Family
DX: K29.00 Acute gastritis without bleeding (principal); J44.9 Chronic obstructive pulmonary disease, unspecified; Z87.891 Personal history of nicotine dependence; I10 Essential (primary) hypertension; E11.9 Type 2 diabetes mellitus without complications; Z79.84 Long term (current) use of oral hypoglycemic drugs
CPT/HCPCS: 36415; 80053; 83690; 86850; 86900; 86901; 93005; 96361; 96365; 96366; 96375; 99285; 74177; 81003; 81015; 83605; 84443; 84484; 85025; 85610; 85730; 87086; 93010; J3490

== ENCOUNTER → 2019-07-03 13:15 | Outpatient (BNVA) | payer MEDICARE, MEDICAID, SELFPAY | PROVIDERS: PCP Nurse Practitioner Family; Referring Provider Nurse Practitioner Family; Visit Provider Physical Therapy Assistant | DX: Z12.11 Encounter for screening for malignant neoplasm of colon (principal); Z86.010 Personal history of colon polyps; J44.9 Chronic obstructive pulmonary disease, unspecified; E11.9 Type 2 diabetes mellitus without complications; I10 Essential (primary) hypertension; Z79.84 Long term (current) use of oral hypoglycemic drugs ==

== ENCOUNTER 2019-07-23 11:19 | Observation (INO) | payer MEDICARE, MEDICAID, SELFPAY ==
[2019-07-23] VITALS (8 sets, daily range): BP systolic 128–181; BP diastolic 60–92; PULSE 65–84; RESP 1–20; TEMP 36.3–36.7; O2SAT 95–98
[2019-07-23] MEDS: Lactated Ringers 1,000 ML 80 ML IV (12:15)
--- NOTE | 2019-07-23 14:35 | HPE_ITS ---
Date of service: 07/23/19 Time of Service: 14:35 Assessment and Plan Assessment and plan (1) Encounter for screening colonoscopy: Status: Acute Assessment and plan: A// Patient is being admitted overnight for observation and assistance in completing her bowel prep for her screening Colonoscopy scheduled for tomorrow secondary to her learning disability and concerns regarding managing her blood sugar while following a clear liquid diet. DIET- Clear liquid diet until 3 hours prior to patients Colonoscopy. No Red or purple colored liquids. Bowel prep has been ordered. P// Screening Colonoscopy tomorrow. D/C home tomorrow after her procedure. History of Present Illness History of Present Illness Chief Complaint: Colonoscopy Bowel Prep Review of Systems Constitutional Constitutional: Denies chills, Denies fever(s), Denies frequent falls, Denies night sweats and Denies weight loss Eyes Eyes: Denies loss of vision ENT Ears, Nose, Mouth, and Throat: Denies abnormal hearing, Denies dysphagia, Denies hearing loss, Denies nasal congestion and Denies neck pain Cardiovascular Cardiovascular: Denies chest pain at rest, Denies chest pain with activity, Denies syncope, Denies dyspnea, Denies dyspnea on exertion and Denies paroxysmal nocturnal dyspnea Respiratory Respiratory: Denies dyspnea and Denies dyspnea on exertion Gastrointestinal Gastrointestinal: Denies dysphagia Genitourinary Genitourinary: Denies urinary frequency, Denies urinary hesitancy and Denies urinary urgency Musculoskeletal Musculoskeletal: Denies neck pain Integumentary/Breasts Skin/Breast: Denies bleeding lesions, Denies non-healing lesions, Denies rash and Denies unusual bruising Neurologic Neurologic: Denies abnormal hearing, Denies syncope, Denies frequent falls and Denies loss of vision Hematologic/Lymphatic Hematologic/Lymphatic: Denies easy bleeding and Denies easy bruising [facility] Social History Smoking/Tobacco Use Status: Former Tobacco Use Tobacco: How many years used: 40 Alcohol Intake: former Drug use: Never Substance use type: does not use Caregiver/Support person: No Household members: none Housing: apartment Number of Children: 0 Communication Needs: Cannot Read Education Level: middle school Details: finished 6th grade only Do you need help understanding health information?: Always current occupation: always disabled; worked as [employer] for 5 years in her late teens, early 20s Pets and animals: No What is your relationship status?: How often do you talk on the phone with friends or family?: never How often do you get together with friends or relatives?: never Panel score (0-1 are the most socially isolated patients): 0 What type of physical activity do you participate in: walking and irregular exercise Duration: < 15 minutes/day Frequency: 1-2 times per week Special pankaj needs: No Agree to transfusion: Yes Seatbelt use: always Drive 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 Meds Home Medications and Allergies Home Medications Medication Instructions Recorded Confirmed Type Vitamin B-12 500 mcg PO DAILY 02/20/13 07/03/19 History glucosamine sulfate 2KCl 500 mg PO DAILY 02/20/13 07/03/19 History lisinopril 40 mg PO DAILY 02/20/13 07/03/19 History pantoprazole 40 mg PO DAILY 02/20/13 07/03/19 History albuterol sulfate [ProAir HFA] 1 puff INHALATION Q4H PRN inhaler 09/22/16 07/03/19 History glyburide-metformin 500 tab-cap PO BID tab-cap 09/22/16 07/03/19 History quetiapine 100 mg PO DAILY 09/22/16 07/03/19 History calcium carbonate-vitamin D3 1 ea PO BID 10/10/17 07/03/19 History simvastatin 40 mg PO HS 10/10/17 07/03/19 History naproxen sodium [Aleve] 2 tab PO PRN PRN 03/24/18 07/03/19 History magnesium 200 mg PO DAILY #14 tab 10/24/18 07/03/19 Rx budesonide-formoterol HFA 160 2 puff IH BID 11/08/18 07/03/19 History mcg-4.5 mcg/actuation aerosol inhaler cetirizine 10 mg tablet 10 mg PO DAILY PRN tab 11/08/18 07/03/19 History ferrous gluconate 324 mg (38 mg 324 mg PO DAILY tab 11/08/18 07/03/19 History iron) tablet fluticasone propionate 220 2 puff IH BID gm 11/08/18 07/03/19 History mcg/actuation HFA aerosol inhaler levalbuterol HCl 1.25 mg/3 mL 1.25 mg IH Q4H 11/08/18 07/03/19 History solution for nebulization miconazole nitrate 2 % topical 1 applic TP DAILY 11/08/18 07/03/19 History powder mupirocin calcium 2 % topical cream 1 applic TP BID 11/08/18 07/03/19 History polyethylene glycol 3350 17 17 gm PO DAILY PRN 11/08/18 07/03/19 History gram/dose oral powder primidone 50 mg tablet 50 mg PO DAILY tab 11/08/18 07/03/19 History propranolol 20 mg tablet 20 mg PO BID 11/08/18 07/03/19 History quetiapine 25 mg tablet 25 mg PO DAILY tab 11/08/18 07/03/19 History sumatriptan succinate 25 mg tablet 25 mg PO .once daily PRN tab 11/08/18 07/03/19 History lactulose 20 gram/30 mL oral 30 gm PO BID PRN #1200 ml MDD 40 g 03/14/19 07/03/19 Rx solution sucralfate [Carafate] 1 gm PO QACHS #60 tab 07/01/19 07/03/19 Rx bisacodyl 5 mg tablet,delayed 5 mg PO ONCE #4 tab 07/03/19 07/03/19 Rx release bisacodyl 5 mg tablet,delayed 5 mg PO ONCE #4 tab 07/03/19 07/03/19 Rx release polyethylene glycol 3350 17 238 g PO ONCE #238 gm 07/03/19 07/03/19 Rx gram/dose oral powder polyethylene glycol 3350 17 238 g PO ONCE #238 gm 07/03/19 07/03/19 Rx gram/dose oral powder Allergies Allergy/AdvReac Type Severity Reaction Status Date / Time thiopental sodium Allergy Skin Rash Unverified 07/03/19 13:19 [From Pentothal] Results Last Vital Signs Temp 36.7 C 07/23/19 12:01 Pulse 65 07/23/19 12:01 Resp 20 07/23/19 12:01 BP 139/60 07/23/19 12:01 Pulse Ox 95 07/23/19 12:01
[2019-07-23] MEDS: Levalbuterol 1.25 MG/3 ML UPD VIAL IH ×2 (16:07→19:50)
[2019-07-23] MEDS: Bisacodyl 5 MG TABEC 10 MG PO ×2 (17:32→19:50)
[2019-07-23] MEDS: Polyethylene Glycol 3350 238 GM BTL PO (18:54)
[2019-07-23] MEDS: Propranolol 20 MG TAB PO (19:50)
[2019-07-23] MEDS: QUEtiapine 100 MG TAB PO (21:25)
[2019-07-24] MEDS: Lactated Ringers 1,000 ML 80 ML IV (00:45)
[2019-07-24 07:36] VITALS: BP 109/72; PULSE 71; RESP 19; TEMP 36.8; O2SAT 96
--- NOTE | 2019-07-24 08:45 | NUR.NOTE ---
Nursing Note: Pt to OR for colonoscopy, being discharged from day surgery after procedure to home. only in this scribes care until 742
== END 2019-07-24 08:02 | disposition short-term general hospital (02) ==
PROVIDERS: Admitting Provider Surgery; PCP Nurse Practitioner Family; Visit Provider Surgery
DX: R19.8 Other specified symptoms and signs involving the digestive system and abdomen (principal); Z12.11 Encounter for screening for malignant neoplasm of colon; J44.9 Chronic obstructive pulmonary disease, unspecified; K21.9 Gastro-esophageal reflux disease without esophagitis; F79 Unspecified intellectual disabilities; K57.30 Diverticulosis of large intestine without perforation or abscess without bleeding; K64.4 Residual hemorrhoidal skin tags; Z87.19 Personal history of other diseases of the digestive system; Z80.0 Family history of malignant neoplasm of digestive organs; E11.9 Type 2 diabetes mellitus without complications; Z79.84 Long term (current) use of oral hypoglycemic drugs; I10 Essential (primary) hypertension
CPT/HCPCS: G0105; NC; G0378; J2704; J3490; J7614

== ENCOUNTER 2019-07-24 08:50 | Day surgery (SDC) | payer MEDICARE, MEDICAID, SELFPAY ==
--- NOTE | 2019-07-24 08:24 | W.PM.PROGNOT ---
Date of Service Date of service: 07/24/19 Time of Service: 08:24 Assessment and Plan Assessment and plan (1) Encounter for screening colonoscopy: Status: Acute Subjective Subjective Interval history since last seen: pt seen and examined. No changes since H&P. completed prep ok. All questions answered stable for procedure.
--- NOTE | 2019-07-24 08:52 | W.COLOREPORT ---
Date of service: 07/24/19 Time of Service: 08:52 Colonoscopy Report Date of procedure: 07/24/19 Pre-op diagnosis general: he of polyps Post-op diagnosis procedure note: other (diverticula/E. hemorrhoids) Procedure: CE Surgeon: Diane Welsh Anesthesia proc note operative: GETA Estimated blood loss (mL): 0 Pathology: none sent Complications: None Disposition: same day Indications: A. polyps Prep: Miralax/Dulcolax Retraction Time: 10 mins Findings: divertic and E. hemorrhoids Procedure Description: After informed consent was obtained the patient was taken to the procedure room and placed in a left decubitous position. Monitors were applied and a time out was done. The patients name, date of , procedure, allergies to medications and metal in their body was reviewed. The patient was then sedated. Once sedated and comfortable a rectal exam was done. External exam shows external hemorrhoidsl. Internal exam revealed a normal sphincter tone and no palpable masses. The scope was then introduced and retrofelexed. No internal hemorrhoids were identified. The scope was then advanced to the cecum w/out difficulty. The TI and appendiceal orifice were identified. The prep was good. The scope was then slowly retracted over 10 minutes back into the rectum. no Polyps were removed. there are mult. small diverticula in sigmoid colon. No avms. No signs of active bleeding or infection. The scope was removed and the patient was woken up and taken back to Same day surgery in stable condition. The patient tolerated the procedure well and there were no immediate complications. Follow up: The patient does not require any further scopes, unless they develop changes in bowel habits or other new gastrointestinal complaints.
--- NOTE | 2019-07-24 09:01 | W.PM.DSUDISC ---
Discharge Plan Disposition Patient Disposition: HOME Condition: Good Discharge Details Reason For Visit: colonoscopy Attending Provider: Diane Welsh Primary Care Provider: Sebastián Stephens Home Meds and New Rx's Prescriptions: Continued propranolol 20 mg tablet 20 mg PO BID RF: 0 Flovent HFA 220 mcg/actuation HFA aerosol inhaler 2 puff IH BID RF: 0 lactulose 20 gram/30 mL solution 30 gm PO BID MDD 40 g PRN (Reason: mental confusion, constipation) Qty: 1200 RF: 0 quetiapine 100 MG tablet 100 mg PO HS RF: 0 glyburide-metformin 1 EACH tablet 500 tab-cap PO BID RF: 0 albuterol sulfate [ProAir HFA] 8.5 GM HFA aerosol inhaler 1 puff Inhalation Q4H PRN RF: 0 pantoprazole 40 MG tablet,delayed release (DR/EC) 40 mg PO DAILY RF: 0 lisinopril 40 MG tablet 40 mg PO DAILY RF: 0 simvastatin 40 MG tablet 40 mg PO HS RF: 0 calcium carbonate-vitamin D3 1 EACH tablet 1 ea PO BID RF: 0 naproxen sodium [Aleve] 220 mg Capsule 2 tab PO PRN PRNRF: 0 magnesium oxide 400 mg magnesium Capsule 400 mg PO DAILY RF: 0 Discontinued polyethylene glycol 3350 [Miralax] 17 gram/dose powder 17 gm PO PRN PRNRF: 0 Discharge Instructions Instructions: Diverticulosis Diet (GEN), Diverticulosis (GEN), High Fiber Diet (GEN) Additional Instructions: Findings: diverticula and hemorrhoids. no polyps Follow up:do not require any further scopes Please call if you develop: fevers >101.5 Nausea or Vomiting Abdominal pain that is not transient DAY SURGERY UNIT POST COLONOSCOPY INSTRUCTIONS 1. Because there will be medication in your system for the next 24 hours, you may feel a little sleepy. Your coordination will be affected. Therefore: a. Do not drive or operate dangerous equipment for 24 hours. b. Do not drink alcohol beverages for 24 hours (not even beer). c. Plan to go home and rest for the day. 2. Generally there are no restrictions on your activity after a day or so has gone by, but you may feel a bit fatigued for a few days. 3 After you arrive home you may have a light meal and return to a normal diet as you can tolerate it without feeling sick to your stomach. 4. After surgery, you may feel pain or discomfort. This should be only transient, but if it persists please contact your doctor. 5. If there are any questions regarding the findings of your procedure, please feel free to contact your doctor. 6. If you are unable to contact your doctor with a problem, contact the hospital at [phone]. 7. Continue all your regular medications unless directed otherwise. I understand the above instructions and have no questions. Signature of Patient or Responsible Adult Escort Date/Time Name of Responsible Adult Escort Signature of Nurse Date/Time Stand Alone Forms: Colonoscopy Post Instructions Activity:: no strenuousactivity or heavy lifting x 24 hrs Diet:: small lt meals today Discharge Orders Discharge Orders: Discharge Order (Routine); Ordered 07/24/19 Ordered By: Diane Welsh DS: Diagnosis Discharge Diagnosis (1) Encounter for screening colonoscopy: Status: Acute
[2019-07-24 09:10] VITALS: BP 139/54; PULSE 70; RESP 16; TEMP 36.1; O2SAT 97
[2019-07-24] MEDS: Lactated Ringers 1,000 ML 80 ML IV (10:53)
== END 2019-07-24 09:58 | disposition home or self-care (01) ==
LOC: SUR 11:03
PROVIDERS: PCP Nurse Practitioner Family; Visit Provider Surgery
PROC: 0DJD8ZZ Inspection of Lower Intestinal Tract, Via Natural or Artificial Opening Endoscopic (ICD-10-PCS; CPT 45378; principal; 2019-07-24 08:15)
DX: Z12.11 Encounter for screening for malignant neoplasm of colon (principal); K57.30 Diverticulosis of large intestine without perforation or abscess without bleeding; K64.4 Residual hemorrhoidal skin tags; Z87.19 Personal history of other diseases of the digestive system; Z80.0 Family history of malignant neoplasm of digestive organs; E11.9 Type 2 diabetes mellitus without complications; Z79.84 Long term (current) use of oral hypoglycemic drugs; I10 Essential (primary) hypertension; J44.9 Chronic obstructive pulmonary disease, unspecified; K21.9 Gastro-esophageal reflux disease without esophagitis
CPT/HCPCS: G0105; J2704

== ENCOUNTER 2019-09-12 02:13 | Emergency (ER) | payer MEDICARE, MEDICAID, SELFPAY ==
[2019-09-12 02:13] VITALS: PULSE 79; RESP 16; TEMP 36.6; O2SAT 100
--- NOTE | 2019-09-12 02:15 | W.ED.GENAD ---
Discharge Plan Disposition Patient Disposition: HOME Condition: Good Discharge Details Chief Complaint: GenMedical Clinical Impression: Insomnia Primary Care Provider: Sebastián Stephens ED Provider: Hal Olmstead Home Meds and New Rx's Prescriptions: No Action propranolol 20 mg tablet 20 mg PO BID RF: 0 Flovent HFA 220 mcg/actuation HFA aerosol inhaler 2 puff IH BID RF: 0 lactulose 20 gram/30 mL solution 30 gm PO BID MDD 40 g PRN (Reason: mental confusion, constipation) Qty: 1200 RF: 0 quetiapine 100 MG tablet 100 mg PO HS RF: 0 glyburide-metformin 1 EACH tablet 500 tab-cap PO BID RF: 0 albuterol sulfate [ProAir HFA] 8.5 GM HFA aerosol inhaler 1 puff Inhalation Q4H PRN RF: 0 pantoprazole 40 MG tablet,delayed release (DR/EC) 40 mg PO DAILY RF: 0 lisinopril 40 MG tablet 40 mg PO DAILY RF: 0 simvastatin 40 MG tablet 40 mg PO HS RF: 0 calcium carbonate-vitamin D3 1 EACH tablet 1 ea PO BID RF: 0 naproxen sodium [Aleve] 220 mg Capsule 2 tab PO PRN PRNRF: 0 magnesium oxide 400 mg magnesium Capsule 400 mg PO DAILY RF: 0 Discharge Instructions Instructions: Insomnia (ED) Additional Instructions: At this time I recommend avoiding hospitals clinics or public areas if you want to decrease her chances of felisa coronavirus. In order to sleep I would recommend taking melatonin, as well as the Benadryl that we have given you here. If you notice any worsening of your symptoms, or any new symptoms such as vomiting, diarrhea, fever, chills, shortness of breath, chest pain, numbness, weakness, or fainting , please return immediately to the emergency department for reevaluation. Please follow up with your primary care provider as soon as possible for reassessment and reevaluation. As always, it was a pleasure participating in your medical care today. Referrals: Sebastián Stephens, COOPERATIVE EXTENSION AGENT [Primary Care Provider] - Medical Decision Making This is a pleasant 69-year-old female who presents to the ER via EMS for evaluation of insomnia. It is currently 2:20 AM, she states that she has not been able to fall asleep since 9 PM. She did take her nightly Seroquel but this is not fixed it. She believes that the reason for her lack of sleep is a fear of coronavirus. Currently she demonstrates no abnormalities on physical exam, no signs of significant vital sign abnormality, toxic multinodular goiter, respiratory distress, or cardiac etiology. Unfortunately there are currently patient is being tested in the ED for coronavirus. Patient has been kept away from these, and all standard safety precautions have been kept and maintained. At this time with no abnormalities the patient is made it explicitly clear that she is ready to go home, that she does not want to be in the same place where people are being tested for coronavirus. We will give her Benadryl to go home with. We discussed red flags which to return. At this time there appears to be no evidence of acute life-threatening abnormality or etiology requiring further evaluation or management. I have extensively reviewed the treatment plan and discharge instructions with the patient. I have addressed all patient concerns at this time. The patient was made aware of what symptoms to monitor for that would warrant a return to the emergency department. Discussed the plan with the patient, they demonstrate verbal understanding and agreement with our assessment and plan at this time. HPI General Date/Time Provider Initiated Documentation: 09/12/19 02:15. HPI Narrative: This is a 69-year-old female who is a bit of a poor historian, with a past medical history of COPD, diabetes, hypertension, GERD, who presents today for insomnia. It is currently 2 AM, the patient states that she has not been able to fall asleep since 9 PM. She did contact EMS because of this. She states that the reason she cannot sleep is because of the fear of the coronavirus. EMS brought the patient here for further evaluation and management. Patient has no other complaints at this time. She denies chest pain, shortness of breath, fever, chills, numbness, tingling, weakness, headache. She did take her normal nightly Seroquel. She denies any other modifying factors. She denies any thoughts of self-harm, or any recent contact with coronavirus. Related Data Home Medications Medication Instructions Recorded Confirmed lisinopril 40 mg PO DAILY 02/20/13 09/12/19 pantoprazole 40 mg PO DAILY 02/20/13 09/12/19 albuterol sulfate [ProAir HFA] 1 puff INHALATION Q4H PRN inhaler 09/22/16 09/12/19 glyburide-metformin 500 tab-cap PO BID tab-cap 09/22/16 09/12/19 quetiapine 100 mg PO HS 09/22/16 09/12/19 calcium carbonate-vitamin D3 1 ea PO BID 10/10/17 09/12/19 simvastatin 40 mg PO HS 10/10/17 09/12/19 naproxen sodium [Aleve] 2 tab PO PRN PRN 03/24/18 09/12/19 fluticasone propionate 220 2 puff IH BID gm 11/08/18 09/12/19 mcg/actuation HFA aerosol inhaler propranolol 20 mg tablet 20 mg PO BID 11/08/18 09/12/19 lactulose 20 gram/30 mL oral 30 gm PO BID PRN #1200 ml MDD 40 g 03/14/19 09/12/19 solution magnesium oxide 400 mg PO DAILY 07/23/19 09/12/19 Previous Rx's Medication Instructions Recorded lactulose 20 gram/30 mL oral 30 gm PO BID PRN #1200 ml MDD 40 g 03/14/19 solution Allergies Allergy/AdvReac Type Severity Reaction Status Date / Time thiopental sodium Allergy Skin Rash Unverified 07/03/19 13:19 [From Pentothal] General Stated Complaint: GenMedical LYNNETTE: 5 Review of Systems All systems reviewed & are unremarkable except as noted in HPI and below PFSH Medical History (Updated 09/12/19 @ 02:24 by Hal Olmstead DO) Anemia (Chronic) Anxiety (Chronic) Benign essential tremor (Acute) Carpal tunnel syndrome (Acute) Chronic low back pain (Acute) Colonoscopy planned (Acute) Constipation (Chronic) COPD (chronic obstructive pulmonary disease) (Chronic) Diabetes mellitus (Chronic) Diverticulitis of large intestine 01/2013. inpt abx x2d. 05/2013 stable sx. Diverticulosis (Acute) Eczema (Acute) GERD (gastroesophageal reflux disease) (Chronic) Hair loss (Acute) HTN (hypertension) (Chronic) Hypercholesterolemia (Chronic) Learning disability (Acute) Palliative care patient (Chronic) Restless legs takes Premapaxil Sleep disorder (Acute) Social isolation (Acute) Vertigo (Acute) Surgical History bladder suspension for incontinence Abdominal hysterectomy (~1979) for heavy bleeding. Arthroplasty of knee L knee Dr Fuentes Cholecystectomy laparoscopic 03/2011 Extraction of cataract in [place] History of colonoscopy (Chronic ~07/24/19) Oophrectomy, Both (04/09/13) laparotomy. aoc and kk. Social History Smoking/Tobacco Use Status: Former Tobacco Use Tobacco: How many years used: 40 Alcohol Intake: former Drug use: Never Substance use type: does not use Caregiver/Support person: No Household members: none Housing: apartment Number of Children: 0 Communication Needs: Cannot Read Education Level: middle school Details: finished 6th grade only Do you need help understanding health information?: Always current occupation: always disabled; worked as [employer] for 5 years in her late teens, early 20s Pets and animals: No What is your relationship status?: How often do you talk on the phone with friends or family?: never How often do you get together with friends or relatives?: never Panel score (0-1 are the most socially isolated patients): 0 What type of physical activity do you participate in: walking and irregular exercise Duration: < 15 minutes/day Frequency: 1-2 times per week Special pankaj needs: No Agree to transfusion: Yes Seatbelt use: always Drive intox or ride w/intox jinriksha driver: No Water heater temp set <120 deg: Yes Working smoke detector in home: Yes Firearms in home: No Do you feel safe at home: Yes Do you feel safe in your relationship?: Yes Additional Social history: she was very briefly in her teens was with Praneeth Cee for 15 years; he in 2015, she thinks, from colon cancer, bled out. Estranged from both her children, no family, no DPOA. Daughter with SA; her children taken from her. Son incarcerated for life. Exam Narrative Exam Narrative: 1.Const: Well-nourished, Well-developed, appearing stated age 2.Eyes: PERRL, no conjunctival injection, and symmetrical lids. 3.ENT: Atraumatic external nose and ears. Moist MM. Neck: Symmetric, trachea midline, No thyromegaly. 4.CVS: +S1/S2, No murmurs or gallops. Peripheral pulses 2+ and equal in all extremities. Brisk capillary refill in all extremities. 5.RESP: Unlabored respiratory effort. Clear to auscultation bilaterally. No wheezes rales or rhonchi 6.GI: Soft, Nontender/Nondistended, No hepatosplenomegaly. No guarding or rebound. 7.MSK: Normocephalic/Atraumatic, Extremities w/o deformity or ttp No cyanosis or clubbing, Normal movement of all extremities 8.Skin: Warm, Dry. No rashes or lesions. 9.Neuro: public health analyst II-XII grossly intact. Sensation grossly intact, no focal neurologic deficits. 10.Psych: (AAO) x3. Appropriate mood and affect Slightly anxious Course Vital Signs Vital signs: Vital Signs Temperature 36.6 C 09/12/19 02:13 Pulse 79 09/12/19 02:13 Respiratory Rate 16 09/12/19 02:13 Pulse Oximetry 100 09/12/19 02:13 Temperature 36.6 C 09/12/19 02:13 Temperature Source Skin 09/12/19 02:13 Pulse 79 09/12/19 02:13 Respiratory Rate 16 09/12/19 02:13 Blood Pressure Position Sitting 09/12/19 02:13 Pulse Oximetry 100 09/12/19 02:13 Oxygen Delivery Method Room Air 09/12/19 02:13 Oxygen Flow Rate 0 09/12/19 02:13 Pain Level 0 09/12/19 02:13
[2019-09-12 02:19] VITALS: BP 125/95; RESP 16
[2019-09-12] MEDS: diphenhydrAMINE 25 MG CAP 50 MG PO (02:25)
--- NOTE | 2019-09-12 02:41 | NUR.NOTE ---
Discharge instructions reviewed with verbal understanding. aware to f/u with pcp. To [facility] to await RCT for ride home.
== END 2019-09-12 02:40 | disposition home or self-care (01) ==
PROVIDERS: Emergency Provider Student in an Organized Health Care Education/Training Program; PCP Nurse Practitioner Family
DX: G47.00 Insomnia, unspecified (principal); J44.9 Chronic obstructive pulmonary disease, unspecified; Z87.891 Personal history of nicotine dependence; E11.9 Type 2 diabetes mellitus without complications; Z79.84 Long term (current) use of oral hypoglycemic drugs; I10 Essential (primary) hypertension
CPT/HCPCS: 99283

== ENCOUNTER 2020-01-09 14:22 | Emergency (ER) | payer MEDICARE, MEDICAID, SELFPAY ==
[2020-01-09 14:21] VITALS: BP 128/96; PULSE 68; RESP 20; TEMP 36.8; O2SAT 99
[2020-01-09 14:27] VITALS: RESP 16
--- NOTE | 2020-01-09 14:30 | DI.RAD_ITS ---
EXAM: XR PORTABLE CHEST AP CLINICAL HISTORY: r/o acute disease TECHNIQUE: 2D digital imaging was performed. COMPARISON: No exams were available for comparison FINDINGS: LUNGS: Clear. No pleural abnormality seen. HEART: Normal. MEDIASTINUM: Normal. OTHER FINDINGS: None. IMPRESSION: No acute pulmonary findings. DATA REPOSITORY: RADIATION DOSE DELIVERED:
--- NOTE | 2020-01-09 14:34 | ED.GENADUL_ITS ---
Discharge Plan Disposition Patient Disposition: HOME Condition: Good Discharge Details Chief Complaint: SOB Clinical Impression: Dyspnea Primary Care Provider: Sebastián Stephens ED Provider: Suyapa Agarwal Home Meds and New Rx's Prescriptions: Continued propranolol 20 mg tablet 20 mg PO BID RF: 0 Flovent HFA 220 mcg/actuation HFA aerosol inhaler 2 puff IH BID RF: 0 lactulose 20 gram/30 mL solution 30 gm PO BID MDD 40 g PRN (Reason: mental confusion, constipation) Qty: 1200 RF: 0 quetiapine 100 MG tablet 100 mg PO HS RF: 0 glyburide-metformin 1 EACH tablet 500 tab-cap PO BID RF: 0 albuterol sulfate [ProAir HFA] 8.5 GM HFA aerosol inhaler 1 puff Inhalation Q4H PRN RF: 0 pantoprazole 40 MG tablet,delayed release (DR/EC) 40 mg PO DAILY RF: 0 lisinopril 40 MG tablet 40 mg PO DAILY RF: 0 simvastatin 40 MG tablet 40 mg PO HS RF: 0 calcium carbonate-vitamin D3 1 EACH tablet 1 ea PO BID RF: 0 naproxen sodium [Aleve] 220 mg Capsule 2 tab PO PRN PRNRF: 0 magnesium oxide 400 mg magnesium Capsule 400 mg PO DAILY RF: 0 Discharge Instructions Instructions: Dyspnea (ED) Additional Instructions: Take your regular medications as directed. Drink plenty of fluids and get plenty of rest. Follow-up with your primary care doctor in 1 week. Return to the emergency department with any worsening or new concerning symp toms. Discharge Data Discharge Physician: Suyapa Agarwal Medical Decision Making 1430 -- 69-year-old female with a history of COPD, anxiety, GERD, hypertension, hyperlipidemia presents for shortness of breath and dry cough for the past 2 days. Denies any symptoms at present. Vitals within normal limits. Patient speaking in full sentences. Lungs clear. EKG notes a rate of 66, sinus without acute ST ischemic findings. Differential diagnosis includes bronchitis, pneumonia, ACS. History and presentation not consistent with CHF, dissection, PE. 1900 -- Labs and imaging reviewed and unremarkable. Patient reassessed and is requesting to go home. Her vitals have remained within normal limits. She is speaking in full sentences and demonstrates no signs of difficulty breathing. Advised to follow up with the primary care doctor for re-evaluation. Usual and customary return precautions given prior to discharge. Medical Records Medical records reviewed: Yes I reviewed the patient's medical records. Imaging Data Radiologic Study: Radiologist's impression: XR PORTABLE CHEST AP CLINICAL HISTORY: r/o acute disease TECHNIQUE: 2D digital imaging was performed. COMPARISON: No exams were available for comparison FINDINGS: LUNGS: Clear. No pleural abnormality seen. HEART: Normal. MEDIASTINUM: Normal. OTHER FINDINGS: None. IMPRESSION: No acute pulmonary findings. Lab Data Lab results reviewed: Yes I reviewed the patient's lab results. Labs: Laboratory Tests Range/Units 01/09/20 01/09/20 15:09 15:44 WBC (4.4-10.8) k/cumm 11.92 H RBC (4.00-5.20) m/cumm 4.69 Hgb (12.0-15.5) g/dL 11.7 L Hct (36.0-46.0) % 37.0 MCV (80-95) fL 78.9 L MCH (27.0-33.0) pg 24.9 L MCHC (32.0-36.0) g/dL 31.6 L RDW (11.7-14.6) % 15.2 H Plt Count (130-400) x1000/uL 290 MPV (8.0-11.0) fL 9.7 Immature Gran % % 0.3 Neutrophils % 64.6 Lymphocytes % 25.0 Monocytes % 6.2 Eosinophils % 3.4 Basophils % 0.5 Absolute Neutrophils (1.2-6.7) k/cumm 7.70 H Absolute Lymphocytes (1.2-3.4) k/cumm 2.98 Absolute Monocytes (0.11-0.7) k/cumm 0.74 H Absolute Eosinophils (0.0-0.7) k/cumm 0.41 Absolute Basophils (0.0-0.2) k/cumm 0.06 Sodium (136-145) mmol/L 140 Potassium (3.5-5.1) mmol/L 3.7 Chloride (98-107) mmol/L 104 Carbon Dioxide (21.0-32.0) mmol/L 28.2 Anion Gap (3-11) mmol/L 7.8 BUN (7-18) mg/dL 14 Creatinine (0.55-1.02) mg/dL 0.79 Estimated GFR/1.73 m2 (mL/min/1.73m2) >= 60.00 Glucose (74-106) mg/dL 85 Calcium (8.5-10.1) mg/dL 9.1 Magnesium (1.8-2.4) mg/dL 1.8 Total Bilirubin (0.2-1.0) mg/dL 0.3 AST (15-37) U/L 19 ALT (14-59) U/L 21 Alkaline Phosphatase (46-116) U/L 83 Troponin I (<0.06) ng/mL < 0.05 Total Protein (6.4-8.2) g/dL 7.4 Albumin (3.4-5.0) g/dL 3.7 ECG Data Attestation: I personally reviewed and interpreted this ECG (s) as follows: Interpretation: Rate of 66, sinus, no acute ST elevation or depression. T wave inversion in aVL which is seen in previous EKG. KS 182. QRS 96. QTc 410. HPI General Mode of arrival: ambulatory . Date/Time Provider Initiated Documentation: 01/09/20 14:34 . Limitations to Documentation: no limitations . Information obtained by: patient . HPI Narrative: Patient is a 69-year-old female with a history of COPD, diabetes, anxiety, GERD, hypertension hyperlipidemia who presents for shortness of breath with dry cough for the past 2 days. She denies any shortness of breath at present. She denies any fever, sputum production, chest pain, dizziness, nausea, vomiting, abdominal pain. Related Data Home Medications Medication Instructions Recorded Confirmed lisinopril 40 mg PO DAILY 02/20/13 01/09/20 pantoprazole 40 mg PO DAILY 02/20/13 01/09/20 albuterol sulfate [ProAir HFA] 1 puff INHALATION Q4H PRN inhaler 09/22/16 01/09/20 glyburide-metformin 500 tab-cap PO BID tab-cap 09/22/16 01/09/20 quetiapine 100 mg PO HS 09/22/16 01/09/20 calcium carbonate-vitamin D3 1 ea PO BID 10/10/17 01/09/20 simvastatin 40 mg PO HS 10/10/17 01/09/20 naproxen sodium [Aleve] 2 tab PO PRN PRN 03/24/18 01/09/20 fluticasone propionate 220 2 puff IH BID gm 11/08/18 01/09/20 mcg/actuation HFA aerosol inhaler propranolol 20 mg tablet 20 mg PO BID 11/08/18 01/09/20 lactulose 20 gram/30 mL oral 30 gm PO BID PRN #1200 ml MDD 40 g 03/14/19 01/09/20 solution magnesium oxide 400 mg PO DAILY 07/23/19 01/09/20 Previous Rx's Medication Instructions Recorded lactulose 20 gram/30 mL oral 30 gm PO BID PRN #1200 ml MDD 40 g 03/14/19 solution Allergies Allergy/AdvReac Type Severity Reaction Status Date / Time thiopental sodium Allergy Skin Rash Unverified 01/09/20 14:27 [From [facility]] General Stated Complaint: SOB LYNNETTE: 3 Review of Systems All systems reviewed & are unremarkable except as noted in HPI and below Constitutional Constitutional: Reports as per HPI, Denies chills and Denies fever(s) Eyes Eyes: Denies blurry vision ENT Ears, Nose, Mouth, and Throat: Denies dizziness, Denies sore throat and Denies throat swelling Cardiovascular Cardiovascular: Denies chest pain and Reports dyspnea Respiratory Respiratory: Denies cough and Reports dyspnea Gastrointestinal Gastrointestinal: Denies abdominal pain, Denies diarrhea and Denies vomiting Genitourinary Genitourinary: Denies hematuria and Denies dysuria Musculoskeletal Musculoskeletal: Denies back pain and Denies numbness Integumentary/Breasts Skin/Breast: Denies lesions and Denies rash Neurologic Neurologic: Denies dizziness, Denies localized weakness and Denies numbness Allergic/Immunologic Allergic/Immunologic: Denies throat swelling [facility] Medical History (Updated 01/09/20 @ 16:42 by Suyapa Agarwal DO) Anemia (Chronic) Anxiety (Chronic) Benign essential tremor (Acute) Carpal tunnel syndrome (Acute) Chronic low back pain (Acute) Colonoscopy planned (Acute) Constipation (Chronic) COPD (chronic obstructive pulmonary disease) (Chronic) Diabetes mellitus (Chronic) Diverticulitis of large intestine 01/2013. inpt abx x2d. 05/2013 stable sx. Diverticulosis (Acute) Eczema (Acute) GERD (gastroesophageal reflux disease) (Chronic) Hair loss (Acute) HTN (hypertension) (Chronic) Hypercholesterolemia (Chronic) Learning disability (Acute) Palliative care patient (Chronic) Restless legs takes Premapaxil Sleep disorder (Acute) Social isolation (Acute) Vertigo (Acute) Surgical History bladder suspension for incontinence Abdominal hysterectomy (~1979) for heavy bleeding. Arthroplasty of knee L knee Dr Fuentes Cholecystectomy laparoscopic 03/2011 Extraction of cataract in [place] History of colonoscopy (Chronic ~07/24/19) Oophrectomy, Both (04/09/13) laparotomy. aoc and kk. Social History Smoking/Tobacco Use Status: Former Tobacco Use Tobacco: How many years used: 40 Alcohol Intake: former Drug use: Never Substance use type: does not use Caregiver/Support person: No Household members: none Housing: apartment Number of Children: 0 Communication Needs: Cannot Read Education Level: middle school Details: finished 6th grade only Do you need help understanding health information?: Always current occupation: always disabled; worked as [employer] for 5 years in her late teens, early 20s Pets and animals: No What is your relationship status?: How often do you talk on the phone with friends or family?: never How often do you get together with friends or relatives?: never Panel score (0-1 are the most socially isolated patients): 0 What type of physical activity do you participate in: walking and irregular exercise Duration: < 15 minutes/day Frequency: 1-2 times per week Special pankaj needs: No Agree to transfusion: Yes Seatbelt use: always Drive intox or ride w/intox driver lifter of sanitation truck: No Water heater temp set <120 deg: Yes Working smoke detector in home: Yes Firearms in home: No Do you feel safe at home: Yes Do you feel safe in your relationship?: Yes Additional Social history: she was very briefly in her teens was with Praneeth Cee for 15 years; he in 2016, she thinks, from colon cancer, bled out. Estranged from both her children, no family, no DPOA. Daughter with SA; her children taken from her. Son incarcerated for life. Exam Const General: cooperative, healthy appearing and no acute distress HENMT Head: normal to inspection Face and sinus: normal facial exam Eyes General: appearance normal, both eyes and all related structures EOM: EOM intact bilaterally Neck Neck: normal visual inspection and No submandibular swelling Lymphatic: no lymphadenopathy noted Chest Chest: normal inspection of the chest and no tenderness Resp Effort & Inspection: normal respiratory effort and able to speak in complete sentences Auscultation: clear to auscultation bilaterally Cardio Rate: regular rate Rhythm: regular rhythm GI Inspection: normal to inspection Palpation: soft, not firm, not rigid and nontender Auscultation: normal bowel sounds Skin General skin exam: no rashes or lesions noted Neuro General: patient alert, patient awake and patient oriented x3 Cognition: normal cognition Speech: speech normal Motor: muscle tone normal throughout Sensory Exam: no sensory deficits noted Extrem General: normal to inspection, full ROM, capillary refill normal, no calf tenderness bilaterally and no edema Psych Appearance: grossly normal Mental Status: mental status grossly normal Speech and Movement: speech and movement normal Affect: normal affect Course Vital Signs Vital signs: Vital Signs Temperature 98.2 F 01/09/20 14:21 Pulse 68 01/09/20 14:21 Respiratory Rate 20 01/09/20 14:21 Blood Pressure 128/96 H 01/09/20 14:21 Pulse Oximetry 99 01/09/20 14:21 Temperature 98.2 F 01/09/20 14:21 Temperature Source Skin 01/09/20 14:21 Pulse 68 01/09/20 14:21 Respiratory Rate 16 01/09/20 14:27 Respiratory Effort Non-Labored 01/09/20 14:27 Respiratory Depth Normal 01/09/20 14:27 Respiratory Pattern Normal 01/09/20 14:27 Blood Pressure 128/96 H 01/09/20 14:21 Blood Pressure Position Sitting 01/09/20 14:21 Pulse Oximetry 99 01/09/20 14:21 Oxygen Delivery Method Room Air 01/09/20 14:21 Oxygen Flow Rate 0 01/09/20 14:21 Pain Level 0 01/09/20 14:21
--- NOTE | 2020-01-09 14:45 | RT.EKG_ITS ---
APPROVED REPORT Exam: Resting ECG Patient Location: E HR:66 bpm ECG Measurements Heart Rate 66 AXIS FL 192 P 44 QRSd 76 QRS 0 QT 392 T 78 QTc 410 <Conclusion> Sinus rhythm...normal P axis, V-rate 60- 99 Low voltage, precordial leads...precordial leads <1.0mV. T wave inversion in aVL, seen in previous EKG. No acute ST ischemic findings. I have reviewed and interpreted ECG and agree with software generated interpretation.
[2020-01-09 15:15] LABS: Abs Immature Grans 0.04 k/cumm (0.0-0.09); Absolute Basophil Count 0.06 k/cumm (0.0-0.2); Absolute Lymphocyte Count 2.98 k/cumm (1.2-3.4); Absolute Monocyte Count 0.74 k/cumm (0.11-0.7); Basophils % 0.5; Eosinophils % 3.4; HGB 11.7 g/dL (12.0-15.5); Immature Grans % 0.3 %; Mean Corp. HGB Concentration 31.6 g/dL (32.0-36.0); Mean Corpuscular Hemoglobin 24.9 pg (27.0-33.0); Mean Corpuscular Volume 78.9 fL (80-95); Mean Platelet Volume 9.7 fL (8.0-11.0); Monocytes % 6.2; Neutrophils % 64.6; Platelet Count 290 x1000/uL (130-400); RBC 4.69 m/cumm (4.00-5.20); RBC Distribution Width 15.2 % (11.7-14.6); White Blood Cell Count 11.92 k/cumm (4.4-10.8)
[2020-01-09 15:16] LABS: Absolute Eosinophil Count 0.41 k/cumm (0.0-0.7)
[2020-01-09 16:05] LABS: ALT 21 U/L (14-59); AST 19 U/L (15-37); Albumin 3.7 g/dL (3.4-5.0); Alkaline Phosphatase 83 U/L (46-116); Anion Gap 7.8 mmol/L (3-11); BUN 14 mg/dL (7-18); Bilirubin, Total 0.3 mg/dL (0.2-1.0); CO2 28.2 mmol/L (21.0-32.0); CREATININE 0.79 mg/dL (0.55-1.02); Calcium 9.1 mg/dL (8.5-10.1); Chloride 104 mmol/L (98-107); Glucose 85 mg/dL (74-106); Magnesium 1.8 mg/dL (1.8-2.4); Potassium 3.7 mmol/L (3.5-5.1); Sodium 140 mmol/L (136-145); Total Protein 7.4 g/dL (6.4-8.2)
[2020-01-09 16:09] LABS: Troponin I < 0.05 ng/mL (<0.06)
[2020-01-09 19:48] VITALS: BP 132/90; PULSE 70; RESP 16; TEMP 36.8; O2SAT 99
== END 2020-01-09 17:05 | disposition home or self-care (01) ==
PROVIDERS: Emergency Provider Physician Assistant; PCP Nurse Practitioner Family
DX: R06.00 Dyspnea, unspecified (principal); R05 Cough; J44.9 Chronic obstructive pulmonary disease, unspecified; Z87.891 Personal history of nicotine dependence; I10 Essential (primary) hypertension; E11.9 Type 2 diabetes mellitus without complications; Z79.84 Long term (current) use of oral hypoglycemic drugs
CPT/HCPCS: 36415; 80053; 93005; 99285; 71045; 83735; 84484; 85025; 93010

== ENCOUNTER 2020-04-06 22:26 | Emergency (ER) | payer MEDICARE, MEDICAID, SELFPAY ==
[2020-04-06 22:29] VITALS: BP 170/48; PULSE 74; RESP 16; TEMP 36; O2SAT 98
--- NOTE | 2020-04-06 22:51 | ED.GENADUL_ITS ---
Discharge Plan Disposition Patient Disposition: HOME Condition: Good Discharge Details Clinical Impression: Anal fissure Primary Care Provider: Sebastián Stephens ED Provider: Hal Olmstead Home Meds and New Rx's Prescriptions: New hydrocortisone acetate [Anusol-HC] 25 mg suppository 25 mg SC DAILY Qty: 24 RF: 0 docusate sodium [Colace] 100 mg capsule 100 mg PO BID Qty: 100 RF: 0 Continued propranolol 20 mg tablet 20 mg PO BID RF: 0 Flovent HFA 220 mcg/actuation HFA aerosol inhaler 2 puff IH BID RF: 0 lactulose 20 gram/30 mL solution 30 gm PO BID MDD 40 g PRN (Reason: mental confusion, constipation) Qty: 1200 RF: 0 quetiapine 100 MG tablet 100 mg PO HS RF: 0 glyburide-metformin 1 EACH tablet 500 tab-cap PO BID RF: 0 albuterol sulfate [ProAir HFA] 8.5 GM HFA aerosol inhaler 1 puff Inhalation Q4H PRN RF: 0 pantoprazole 40 MG tablet,delayed release (DR/EC) 40 mg PO DAILY RF: 0 lisinopril 40 MG tablet 40 mg PO DAILY RF: 0 simvastatin 40 MG tablet 40 mg PO HS RF: 0 calcium carbonate-vitamin D3 1 EACH tablet 1 ea PO BID RF: 0 naproxen sodium [Aleve] 220 mg Capsule 2 tab PO PRN PRNRF: 0 magnesium oxide 400 mg magnesium Capsule 400 mg PO DAILY RF: 0 Discharge Instructions Instructions: Anal Fissure (ED) Additional Instructions: At this time your symptoms are consistent with an anal fissure. Your blood levels are stable. The treatment for an anal fissure is the suppositories that have been prescribed. Please take these as directed. Please also use warm water soaks of your bum, as well as [id number] witch debo as needed help with the pain. It is very important to keep your stool soft to allow for good healing. Please take the stool softener Colace as prescribed 1 pill twice daily. Drink plenty of fluids and maintain a high-fiber diet. Please follow-up with your primary care provider and your surgeon for reassessment. If you notice any worsening of your symptoms, or any new symptoms such as vomiting, diarrhea, fever, chills, shortness of breath, chest pain, numbness, weakness, or fainting , please return immediately to the emergency department for reevaluation. As always, it was a pleasure participating in your medical care today. Referrals: Sebastián Stephens NP [Primary Care Provider] - Diane Welsh DO [OSTEOPATHIC DOCTOR] - Medical Decision Making This is a 69-year-old female with a past medical history of COPD, diabetes, hypertension, GERD, who presents today for evaluation of rectal bleeding. The patient states that 4 days ago she had a notably hard bowel movement, after that she has had pain with every bowel movement whether it is hard or soft. She has noticed small amount of blood which she describes as quarter sized on each bowel movement since then. She denies any bleeding other covarrubias. She denies any lightheadedness or syncope. Aside for the pain in the rectal region with bowel movements she denies any other pain. She denies any urinary complaints. She is not on blood thinners. She did have a colonoscopy 9 months ago which demonstrated external hemorrhoids, small amount of diverticuli. No other abnormalities, no AVMs. Patient has no other complaints at this time. No other modifying factors. No history of personal or familial colon cancer that she can recall. Physical exam demonstrates notable external hemorrhoids on rectal exam, mild pain during the transition through the anal sphincter. No evidence of large hina fissure. No evidence of bleeding whatsoever or mass otherwise. Vital signs notably stable, Hemoccult is negative. Signs and symptoms appear consistent with anal fissure especially in conjunction with pain and blood only present with bowel movements, and after a initial large hard bowel movement few days ago. At this time we will get screening labs out of an abundance of precaution to make sure her hemoglobin levels are stable. We will give Anusol suppository prescription, recommend outpatient surgical/PCP follow- up for reassessment. 11:03 PM Patient's CBC has returned, hemoglobin is notably stable at 12.1, platelets normal at 279, MCV slightly low at 78.7, however this is her baseline upon review of prior labs. Patient remains hemodynamically stable here. Signs and symptoms clinically inconsistent with significant GI bleed and instead clinically consistent with mild anal fissure at this time. Will give Anusol, and recommend follow-up. Will give stool softener as well. Discussed red flags which to return. I have extensively reviewed the treatment plan and discharge instructions with the patient. I have addressed all patient concerns at this time. The patient was made aware of what symptoms to monitor for that would warrant a return to the emergency department. Discussed the plan with the patient, they demonstrate verbal understanding and agreement with our assessment and plan at this time. HPI General Date/Time Provider Initiated Documentation: 04/06/20 22:27 . HPI Narrative: This is a 69-year-old female with a past medical history of COPD, diabetes, hypertension, GERD, who presents today for evaluation of rectal bleeding. The patient states that 4 days ago she had a notably hard bowel movement, after that she has had pain with every bowel movement whether it is hard or soft. She has noticed small amount of blood which she describes as quarter sized on each bowel movement since then. She denies any bleeding otherwise. She denies any lightheadedness or syncope. Aside for the pain in the rectal region with bowel movements she denies any other pain. She denies any urinary complaints. She is not on blood thinners. She did have a colonoscopy 9 months ago which demonstrated external hemorrhoids, small amount of diverticuli. No other abnormalities, no AVMs. Patient has no other complaints at this time. No other modifying factors. No history of personal or familial colon cancer that she can recall. Related Data Home Medications Medication Instructions Recorded Confirmed lisinopril 40 mg PO DAILY 02/20/13 01/09/20 pantoprazole 40 mg PO DAILY 02/20/13 01/09/20 albuterol sulfate [ProAir HFA] 1 puff INHALATION Q4H PRN inhaler 09/22/16 01/09/20 glyburide-metformin 500 tab-cap PO BID tab-cap 09/22/16 01/09/20 quetiapine 100 mg PO HS 09/22/16 01/09/20 calcium carbonate-vitamin D3 1 ea PO BID 10/10/17 01/09/20 simvastatin 40 mg PO HS 10/10/17 01/09/20 naproxen sodium [Aleve] 2 tab PO PRN PRN 03/24/18 01/09/20 fluticasone propionate 220 2 puff IH BID gm 11/08/18 01/09/20 mcg/actuation HFA aerosol inhaler propranolol 20 mg tablet 20 mg PO BID 11/08/18 01/09/20 lactulose 20 gram/30 mL oral 30 gm PO BID PRN #1200 ml MDD 40 g 03/14/19 01/09/20 solution magnesium oxide 400 mg PO DAILY 07/23/19 01/09/20 docusate sodium [Colace] 100 mg PO BID #100 cap 04/06/20 hydrocortisone acetate [Anusol-HC] 25 mg SC DAILY #24 ea 04/06/20 Previous Rx's Medication Instructions Recorded lactulose 20 gram/30 mL oral 30 gm PO BID PRN #1200 ml MDD 40 g 03/14/19 solution docusate sodium [Colace] 100 mg PO BID #100 cap 04/06/20 hydrocortisone acetate [Anusol-HC] 25 mg SC DAILY #24 ea 04/06/20 Allergies Allergy/AdvReac Type Severity Reaction Status Date / Time thiopental sodium Allergy Skin Rash Unverified 04/06/20 22:33 [From Pentothal] General Stated Complaint: GI Bleed LYNNETTE: 3 Review of Systems All systems reviewed & are unremarkable except as noted in HPI and below PFSH Medical History Anemia Anxiety Benign essential tremor Carpal tunnel syndrome Chronic low back pain Colonoscopy planned Constipation COPD (chronic obstructive pulmonary disease) Diabetes mellitus Diverticulitis of large intestine Diverticulosis Eczema Financial difficulties GERD (gastroesophageal reflux disease) Hair loss HTN (hypertension) Hypercholesterolemia Learning disability Lives alone with help available Palliative care patient Restless legs takes Premapaxil Sleep disorder Social isolation improved Vertigo Surgical History bladder suspension for incontinence Abdominal hysterectomy (~1979) for heavy bleeding. Arthroplasty of knee L knee Dr Fuentes Cholecystectomy laparoscopic 03/2011 Extraction of cataract in [place] History of colonoscopy (~07/24/19) Oophrectomy, Both (04/09/13) laparotomy. aoc and kk. Family History Sister Heart disease Son Parent-child estrangement nec Daughter Parent-child estrangement nec Substance abuse Social History Smoking/Tobacco Use Status: Former Tobacco Use Tobacco: How many years used: 40 Alcohol Intake: former Drug use: Never Substance use type: does not use Caregiver/Support person: No Household members: none Housing: apartment Number of Children: 0 Communication Needs: Cannot Read Education Level: middle school Details: finished 6th grade only Do you need help understanding health information?: Always current occupation: always disabled; worked as [employer] for 5 years in her late teens, early 20s Pets and animals: No What is your relationship status?: How often do you talk on the phone with friends or family?: never How often do you get together with friends or relatives?: never Panel score (0-1 are the most socially isolated patients): 0 What type of physical activity do you participate in: walking and irregular exercise Duration: < 15 minutes/day Frequency: 1-2 times per week Special pankaj needs: No Agree to transfusion: Yes Seatbelt use: always Drive intox or ride w/intox bus driver/monitor: No Water heater temp set <120 deg: Yes Working smoke detector in home: Yes Firearms in home: No Do you feel safe at home: Yes Do you feel safe in your relationship?: Yes Additional Social history: she was very briefly in her teens was with Praneeth Cee for 15 years; he in 2016, she thinks, from colon cancer, bled out. Estranged from both her children, no family, no DPOA. Daughter with SA; her children taken from her. Son incarcerated for life. Exam Narrative Exam Narrative: 1.Const: Well-nourished, Well-developed, appearing stated age 2.Eyes: PERRL, no conjunctival injection, and symmetrical lids. 3.ENT: Atraumatic external nose and ears. Moist MM. Neck: Symmetric, trachea midline, No thyromegaly. 4.CVS: +S1/S2, No murmurs or gallops. Peripheral pulses 2+ and equal in all extremities. Brisk capillary refill in all extremities. 5.RESP: Unlabored respiratory effort. Clear to auscultation bilaterally. No wheezes rales or rhonchi 6.GI: Soft, Nontender/Nondistended, No hepatosplenomegaly. No guarding or rebound. 7.MSK: Normocephalic/Atraumatic, Extremities w/o deformity or ttp No cyanosis or clubbing, Normal movement of all extremities, rectal exam was performed with female nurse Dinah at bedside, rectal exam demonstrates notable external hemorrhoids, no blood, no bright red blood, digital component of the exam did elicit mild amount of pain at the anal sphincter. No evidence of bleeding though, stool Hemoccult was negative. No mass or other abnormality. 8.Skin: Warm, Dry. No rashes or lesions. 9.Neuro: statistical methods teacher II-XII grossly intact. Sensation grossly intact, no focal neurologic deficits. 10.Psych: (AAO) x3. Appropriate mood and affect Course Vital Signs Vital signs: Vital Signs Temperature 36 C L 04/06/20 22:29 Pulse 74 04/06/20 22:29 Respiratory Rate 16 04/06/20 22:29 Blood Pressure 170/48 H 04/06/20 22:29 Pulse Oximetry 98 04/06/20 22:29 Temperature 36 C L 04/06/20 22:29 Temperature Source Temporal Artery Scan 04/06/20 22:29 Pulse 74 04/06/20 22:29 Respiratory Rate 16 04/06/20 22:29 Respiratory Effort Non-Labored 04/06/20 22:33 Blood Pressure 170/48 H 04/06/20 22:29 Blood Pressure Position Sitting 04/06/20 22:29 Pulse Oximetry 98 04/06/20 22:29 Oxygen Delivery Method Room Air 04/06/20 22:29 Oxygen Flow Rate 0 04/06/20 22:29 Pain Level 0 04/06/20 22:29
[2020-04-06 22:54] LABS: Abs Immature Grans 0.05 10^3/uL (0.0-0.06); Absolute Basophil Count 0.08 10^3/uL (0.0-0.2); Absolute Eosinophil Count 0.24 10^3/uL (0.0-0.7); Absolute Lymphocyte Count 3.71 10^3/uL (1.2-3.4); Absolute Monocyte Count 0.85 10^3/uL (0.1-0.8); Absolute Neutrophil Count 7.19 10^3/uL (1.2-6.7); Basophils % 0.7; HCT 38.9 % (36.0-46.0); HGB 12.1 g/dL (11.2-15.7); Immature Grans % 0.4; Lymphocytes % 30.6; MCH 24.5 pg (27.0-33.0); MCHC 31.1 % (32.0-36.0); MCV 78.7 fL (80-95); MPV 9.7 fL (8.0-11.0); Neutrophils % 59.3; Nucleated RBC 0 %; Platelet Count 279 10^3/uL (130-400); RBC 4.94 10^6/uL (3.93-5.22); RDW 14.6 % (11.7-14.6); RDW-SD 41.6 fL; WBC 12.12 10^3/uL (4.4-10.8)
[2020-04-06 23:15] VITALS: BP 128/76; PULSE 76; RESP 16; O2SAT 99
== END 2020-04-06 23:17 | disposition home or self-care (01) ==
PROVIDERS: Emergency Provider Student in an Organized Health Care Education/Training Program; PCP Nurse Practitioner Family
DX: K60.0 Acute anal fissure (principal); K64.4 Residual hemorrhoidal skin tags; E11.9 Type 2 diabetes mellitus without complications; Z79.84 Long term (current) use of oral hypoglycemic drugs; J44.9 Chronic obstructive pulmonary disease, unspecified; Z87.891 Personal history of nicotine dependence; I10 Essential (primary) hypertension
CPT/HCPCS: 36415; 80053; 99283; 85025

== ENCOUNTER 2020-05-27 20:32 | Emergency (ER) | payer MEDICARE, MEDICAID, SELFPAY ==
--- NOTE | 2020-05-27 20:30 | RT.EKG_ITS ---
APPROVED REPORT Exam: Resting ECG Patient Location: E HR:68 bpm ECG Measurements Heart Rate 68 AXIS MA 81 P 0 QRSd 84 QRS 2 QT 393 T 67 QTc 419 Conclusion Sinus rhythm...normal P axis, V-rate 60- 99 Low voltage, precordial leads...precordial leads <1.0mV
[2020-05-27 20:32] VITALS: BP 124/103; PULSE 68; RESP 18; TEMP 36.6; O2SAT 99
[2020-05-27 20:45] VITALS: RESP 18
--- NOTE | 2020-05-27 20:56 | W.ED.GENAD ---
Discharge Plan Disposition Patient Disposition: HOME Condition: Improving Discharge Details Clinical Impression: Anxiety Primary Care Provider: Sebastián Stephens ED Provider: Modesto Yanes Home Meds and New Rx's Prescriptions: Continued propranolol 20 mg tablet 20 mg PO BID RF: 0 Flovent HFA 220 mcg/actuation HFA aerosol inhaler 2 puff IH BID RF: 0 lactulose 20 gram/30 mL solution 30 gm PO BID MDD 40 g PRN (Reason: mental confusion, constipation) Qty: 1200 RF: 0 quetiapine 100 MG tablet 100 mg PO HS RF: 0 glyburide-metformin 1 EACH tablet 500 tab-cap PO BID RF: 0 albuterol sulfate [ProAir HFA] 8.5 GM HFA aerosol inhaler 1 puff Inhalation Q4H PRN RF: 0 pantoprazole 40 MG tablet,delayed release (DR/EC) 40 mg PO DAILY RF: 0 lisinopril 40 MG tablet 40 mg PO DAILY RF: 0 hydrocortisone acetate [Anusol-HC] 25 mg suppository 25 mg RI DAILY Qty: 24 RF: 0 docusate sodium [Colace] 100 mg capsule 100 mg PO BID Qty: 100 RF: 0 simvastatin 40 MG tablet 40 mg PO HS RF: 0 calcium carbonate-vitamin D3 1 EACH tablet 1 ea PO BID RF: 0 naproxen sodium [Aleve] 220 mg Capsule 2 tab PO PRN PRNRF: 0 magnesium oxide 400 mg magnesium Capsule 400 mg PO DAILY RF: 0 Discharge Instructions Instructions: Anxiety (ED) Additional Instructions: Home to rest this evening. Continue your regularly prescribed medications. Return for any acute concerns. Medical Decision Making 69-year-old female presents from her home with complaint of anxiety and transient shortness of breath. She is not been ill and has not had a cough or fever. She was given a DuoNeb en route with improvement. She arrives with normal vital signs, no wheezing, and is quite anxious. She has history of similar presentations in the past. Given Ativan, screening EKG was obtained, she was given humidified room air. Patient observed, felt improved. She ate some buttered toast and ham. Vital signs remained normal. Most consistent with anxiety attack and patient stable and appropriate for discharge to home HPI General Mode of arrival: EMS. Date/Time Provider Initiated Documentation: 05/27/20 21:21. Limitations to Documentation: no limitations. Information obtained by: EMS. History of Present Illness 69 year old F presents to the emergency department with the chief complaint of Anxiety, described as moderate, Quality is described as constant, and is localized to the chest. Patient reports no radiation. Patient started experiencing this hour(s) and it has been constant. No relieving factors improve symptom(s), No exacerbating factors reported . Patient notes denies chest pain, cough and syncope. Patient did receive the following treatments prior to arrival, other (DuoNeb in ambulance) Related Data Home Medications Medication Instructions Recorded Confirmed lisinopril 40 mg PO DAILY 02/20/13 05/27/20 pantoprazole 40 mg PO DAILY 02/20/13 05/27/20 albuterol sulfate [ProAir HFA] 1 puff INHALATION Q4H PRN inhaler 09/22/16 05/27/20 glyburide-metformin 500 tab-cap PO BID tab-cap 09/22/16 05/27/20 quetiapine 100 mg PO HS 09/22/16 05/27/20 calcium carbonate-vitamin D3 1 ea PO BID 10/10/17 05/27/20 simvastatin 40 mg PO HS 10/10/17 05/27/20 naproxen sodium [Aleve] 2 tab PO PRN PRN 03/24/18 05/27/20 fluticasone propionate 220 2 puff IH BID gm 11/08/18 05/27/20 mcg/actuation HFA aerosol inhaler propranolol 20 mg tablet 20 mg PO BID 11/08/18 05/27/20 lactulose 20 gram/30 mL oral 30 gm PO BID PRN #1200 ml MDD 40 g 03/14/19 05/27/20 solution magnesium oxide 400 mg PO DAILY 07/23/19 05/27/20 docusate sodium [Colace] 100 mg PO BID #100 cap 04/06/20 05/27/20 hydrocortisone acetate [Anusol-HC] 25 mg RI DAILY #24 ea 04/06/20 05/27/20 Previous Rx's Medication Instructions Recorded lactulose 20 gram/30 mL oral 30 gm PO BID PRN #1200 ml MDD 40 g 03/14/19 solution docusate sodium [Colace] 100 mg PO BID #100 cap 04/06/20 hydrocortisone acetate [Anusol-HC] 25 mg RI DAILY #24 ea 04/06/20 Allergies Allergy/AdvReac Type Severity Reaction Status Date / Time thiopental sodium Allergy Skin Rash Unverified 05/27/20 20:45 [From Pentothal] General Stated Complaint: SOB LYNNETTE: 2 Review of Systems Narrative: Worried about Covid. Ate dinner at the [employer]. 6 systems reviewed and otherwise negative [facility] Medical History Anemia Anxiety Benign essential tremor Carpal tunnel syndrome Chronic low back pain Colonoscopy planned Constipation COPD (chronic obstructive pulmonary disease) Diabetes mellitus Diverticulitis of large intestine Diverticulosis Eczema Financial difficulties GERD (gastroesophageal reflux disease) Hair loss HTN (hypertension) Hypercholesterolemia Learning disability Lives alone with help available Palliative care patient Restless legs takes Premapaxil Sleep disorder Social isolation improved Vertigo Surgical History bladder suspension for incontinence Abdominal hysterectomy (~1979) for heavy bleeding. Arthroplasty of knee L knee Dr Fuentes Cholecystectomy laparoscopic 03/2011 Extraction of cataract in [place] History of colonoscopy (~07/24/19) Oophrectomy, Both (04/09/13) laparotomy. aoc and kk. Family History Sister Heart disease Son Parent-child estrangement nec Daughter Parent-child estrangement nec Substance abuse Social History Smoking/Tobacco Use Status: Former Tobacco Use Tobacco: How many years used: 40 Smoking risk assessment performed?: Yes Alcohol Intake: former Drug use: Never Substance use type: does not use Caregiver/Support person: No Household members: none Housing: apartment Number of Children: 0 Communication Needs: Cannot Read Education Level: middle school Details: finished 6th grade only Do you need help understanding health information?: Always current occupation: always disabled; worked as [employer] for 5 years in her late teens, early 20s Pets and animals: No What is your relationship status?: How often do you talk on the phone with friends or family?: never How often do you get together with friends or relatives?: never Panel score (0-1 are the most socially isolated patients): 0 What type of physical activity do you participate in: walking and irregular exercise Duration: < 15 minutes/day Frequency: 1-2 times per week Special pankaj needs: No Agree to transfusion: Yes Seatbelt use: always 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 Estranged from both her children, no family, no DPOA. Daughter with SA; her children taken from her. Son incarcerated for life. Exam Narrative Exam Narrative: GEN: awake, alert, oriented 3. Pleasant, well groomed, interactive. HEAD: Normocephalic, atraumatic ENT: Mucous membranes moist, oropharynx unremarkable, External ear exam unremarkable EYES: PERRL, EOMI NECK: Full ROM, no GALLO, no menigismus CHEST/RESP: Nontender, clear to auscultation bilateral, no wheeze/rhonchi/rales CARDIOVASCULAR: RRR, no murmur, rub yusuf. 2+ Rad pulse bilateral ABDOMEN: Soft, nontender, no mass. +Bowel sounds EXT: Full ROM, no edema, no rash Neuro: Grossly normal neurologic exam, conversant, interactive. Psych: Speech fluent, thoughts congruent, affect anxious Course Vital Signs Vital signs: Vital Signs Temperature 36.6 C 05/27/20 20:32 Pulse 68 05/27/20 20:32 Respiratory Rate 18 05/27/20 20:32 Blood Pressure 124/103 H 05/27/20 20:32 Pulse Oximetry 99 05/27/20 20:32 Temperature 36.6 C 05/27/20 20:32 Temperature Source Temporal Artery Scan 05/27/20 20:32 Pulse 68 05/27/20 20:32 Respiratory Rate 18 05/27/20 20:45 Respiratory Effort 05/27/20 20:45 Respiratory Depth Normal 05/27/20 20:45 Respiratory Pattern Tachypnea 05/27/20 20:45 Blood Pressure 124/103 H 05/27/20 20:32 Blood Pressure Position Sitting 05/27/20 20:32 Pulse Oximetry 99 05/27/20 20:32 Oxygen Delivery Method Room Air 05/27/20 20:32 Oxygen Flow Rate 0 05/27/20 20:32 Pain Level 0 05/27/20 20:32
[2020-05-27] MEDS: Sodium Chloride 0.9% for Inhalation 3 ML VIAL (21:22)
[2020-05-27] MEDS: LORazepam 2 MG/ML VIAL 0.5 MG IVP (21:22)
[2020-05-27 22:51] VITALS: BP 124/103; PULSE 68; RESP 18; TEMP 36.6; O2SAT 99
== END 2020-05-27 22:27 | disposition home or self-care (01) ==
PROVIDERS: Emergency Provider Emergency Medicine; PCP Nurse Practitioner Family
DX: R06.02 Shortness of breath (principal); F41.9 Anxiety disorder, unspecified; J44.9 Chronic obstructive pulmonary disease, unspecified; Z87.891 Personal history of nicotine dependence; E11.9 Type 2 diabetes mellitus without complications; Z79.84 Long term (current) use of oral hypoglycemic drugs; I10 Essential (primary) hypertension
CPT/HCPCS: 36415; 93005; 94640; 96374; 99284; 93010; J2060

== ENCOUNTER 2020-06-11 06:42 | Emergency (ER) | payer MEDICARE, MEDICAID, SELFPAY ==
[2020-06-11] VITALS (14 sets, daily range): BP systolic 114–164; BP diastolic 51–140; PULSE 60–76; RESP 14–21; TEMP 36; O2SAT 97–100
--- NOTE | 2020-06-11 06:39 | W.ED.GENAD ---
Discharge Plan Disposition Patient Disposition: HOME Condition: Good Discharge Details Clinical Impression: Anxiety Primary Care Provider: Sebastián Stephens ED Provider: Benson Harper [place] Meds and New Rx's Prescriptions: Continued propranolol 20 mg tablet 40 mg PO BID RF: 0 Flovent HFA 220 mcg/actuation HFA aerosol inhaler 2 puff IH BID RF: 0 lactulose 20 gram/30 mL solution 30 gm PO BID MDD 40 g PRN (Reason: mental confusion, constipation) Qty: 1200 RF: 0 quetiapine 100 MG tablet 100 mg PO HS RF: 0 glyburide-metformin 1 EACH tablet 500 tab-cap PO BID RF: 0 albuterol sulfate [ProAir HFA] 8.5 GM HFA aerosol inhaler 1 puff Inhalation Q4H PRN RF: 0 pantoprazole 40 MG tablet,delayed release (DR/EC) 40 mg PO DAILY RF: 0 lisinopril 40 MG tablet 40 mg PO DAILY RF: 0 docusate sodium [Colace] 100 mg capsule 100 mg PO BID Qty: 100 RF: 0 simvastatin 40 MG tablet 40 mg PO HS RF: 0 calcium carbonate-vitamin D3 1 EACH tablet 1 ea PO BID RF: 0 magnesium oxide 400 mg magnesium Capsule 400 mg PO DAILY RF: 0 triamcinolone acetonide 0.5 % cream 1 applic TOPICAL PRN PRNRF: 0 benzonatate 100 mg capsule 100 mg PO PRN PRNRF: 0 clotrimazole-betamethasone 1-0.05 % cream 1 applic TOPICAL PRN PRNRF: 0 Discharge Instructions Instructions: Anxiety (ED) Additional Instructions: Your EKG and chest x-ray look fine. Your vital signs were normal. Your oxygen level was normal. Your lungs are clear. This appears to be anxiety related as it has been in the past. Follow-up with primary care to discuss possible medication management for anxiety. Return to ED for fever, cough, chest pain. Referrals: Sebastián Stephens, [employer] [Primary Care Provider] - Medical Decision Making Patient with normal vital signs. Complaint of shortness of breath but has clear lungs, speaking in full sentences. When asked why she is periodically moaning she states it is because she is feeling short of breath. She denies any other symptoms. She denies feeling overly anxious. Given her previous history and presentations in the past, this is likely anxiety driven again. Will get screening EKG and portable chest x-ray and give oral Ativan. Do not feel laboratory studies are necessary at this point. Patient's EKG is unchanged from previous. Chest x-ray shows no infiltrate or edema. Patient's vital signs remained normal with good room air pulse ox. She does feel better. She has been taking oral fluids. I do not feel necessary to pursue further work-up at this time given patient's previous history and her benign findings on exam. Patient to follow-up with primary care. Patient is not sure what medication she is on or whether she takes anything for anxiety. Medical Records Medical records reviewed: Yes I reviewed the patient's medical records. ECG Data Attestation: I personally reviewed and interpreted this ECG (s) as follows: Interpretation: see EKG HPI General Mode of arrival: EMS. Date/Time Provider Initiated Documentation: 06/11/20 06:48. Limitations to Documentation: no limitations. Information obtained by: patient, RN notes reviewed and old records reviewed. HPI Narrative: Patient presents to ED by ambulance with complaint of shortness of breath. Patient actually called EMS twice last night. EMS was there at 10 PM, 2 AM and again this morning at 6 AM. Patient reports feeling short of breath but denies having fever, cough, cold symptoms, chest pain, chest pressure. She was seen here couple weeks ago for same. She has been seen here by me and other providers for similar complaints. She does have history of COPD. EMS provided neb last night as well as a neb this morning despite clear lungs in the 100% O2 saturation. Related Data Home Medications Medication Instructions Recorded Confirmed lisinopril 40 mg PO DAILY 02/20/13 06/11/20 pantoprazole 40 mg PO DAILY 02/20/13 06/11/20 albuterol sulfate [ProAir HFA] 1 puff INHALATION Q4H PRN inhaler 09/22/16 06/11/20 glyburide-metformin 500 tab-cap PO BID tab-cap 09/22/16 06/11/20 quetiapine 100 mg PO HS 09/22/16 06/11/20 calcium carbonate-vitamin D3 1 ea PO BID 10/10/17 06/11/20 simvastatin 40 mg PO HS 10/10/17 06/11/20 fluticasone propionate 220 2 puff IH BID gm 11/08/18 06/11/20 mcg/actuation HFA aerosol inhaler propranolol 20 mg tablet 40 mg PO BID 11/08/18 06/11/20 lactulose 20 gram/30 mL oral 30 gm PO BID PRN #1200 ml MDD 40 g 03/14/19 06/11/20 solution magnesium oxide 400 mg PO DAILY 07/23/19 06/11/20 docusate sodium [Colace] 100 mg PO BID #100 cap 04/06/20 06/11/20 benzonatate 100 mg PO PRN PRN 06/11/20 06/11/20 clotrimazole-betamethasone 1 applic TOPICAL PRN PRN 06/11/20 06/11/20 triamcinolone acetonide 1 applic TOPICAL PRN PRN 06/11/20 06/11/20 Previous Rx's Medication Instructions Recorded lactulose 20 gram/30 mL oral 30 gm PO BID PRN #1200 ml MDD 40 g 03/14/19 solution docusate sodium [Colace] 100 mg PO BID #100 cap 04/06/20 Allergies Allergy/AdvReac Type Severity Reaction Status Date / Time thiopental sodium Allergy Skin Rash Unverified 06/11/20 07:07 [From Pentothal] General LYNNETTE: 2 Review of Systems Narrative: As documented in HPI otherwise negative as below. Const: no fever, chills, weakness Resp: no cough, pleuritic pain CV: no CP, diaphoresis, edema, syncope GI: no abdominal pain, nausea, vomiting, diarrhea Neuro: no headache, numbness, focal weakness, confusion PFSH Medical History Anemia Anxiety Benign essential tremor Carpal tunnel syndrome Chronic low back pain Colonoscopy planned Constipation COPD (chronic obstructive pulmonary disease) Diabetes mellitus Diverticulitis of large intestine Diverticulosis Eczema Financial difficulties GERD (gastroesophageal reflux disease) Hair loss HTN (hypertension) Hypercholesterolemia Learning disability Lives alone with help available Palliative care patient Restless legs takes Premapaxil Sleep disorder Social isolation improved Vertigo Surgical History bladder suspension for incontinence Abdominal hysterectomy (~1979) for heavy bleeding. Arthroplasty of knee L knee Dr Fuentes Cholecystectomy laparoscopic 03/2011 Extraction of cataract in [place] History of colonoscopy (~07/24/19) Oophrectomy, Both (04/09/13) laparotomy. aoc and kk. Family History Sister Heart disease Son Parent-child estrangement nec Daughter Parent-child estrangement nec Substance abuse Social History Smoking/Tobacco Use Status: Former Tobacco Use Tobacco: How many years used: 40 Smoking risk assessment performed?: Yes Alcohol Intake: former Drug use: Never Substance use type: does not use Caregiver/Support person: No Household members: none Housing: apartment Number of Children: 0 Communication Needs: Cannot Read Education Level: middle school Details: finished 6th grade only Do you need help understanding health information?: Always current occupation: always disabled; worked as [employer] for 5 years in her late teens, early 20s Pets and animals: No What is your relationship status?: How often do you talk on the phone with friends or family?: never How often do you get together with friends or relatives?: never Panel score (0-1 are the most socially isolated patients): 0 What type of physical activity do you participate in: walking and irregular exercise Duration: < 15 minutes/day Frequency: 1-2 times per week Special pankaj needs: No Agree to transfusion: Yes Seatbelt use: always 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 Estranged from both her children, no family, no DPOA. Daughter with SA; her children taken from her. Son incarcerated for life. Exam Narrative Exam Narrative: Const: Elderly female in NAD, periodically moaning. HEENT: NC/AT. Normal facial exam. Eyes: Normal conjunctiva and sclera. Neck: Supple. Trachea midline. Lungs: Normal respiratory effort. Lungs are clear. Cor: RRR without murmur/gallop. Good radial pulses. Neuro: A+O x 3. Normal speech, mentation, gait. Cranial nerves II - XII grossly intact. No gross motor or sensory deficit. Ext: No C/C/E. No calf tenderness. Skin: Warm and dry without rash.
--- NOTE | 2020-06-11 06:45 | RT.EKG_ITS ---
APPROVED REPORT Exam: Resting ECG Patient Location: E HR:66 bpm ECG Measurements Heart Rate 66 AXIS MO 190 P 30 QRSd 81 QRS 5 QT 408 T 74 QTc 429 Conclusion Sinus rhythm...normal P axis, V-rate 60- 99 Low voltage, precordial leads...precordial leads <1.0mV There are no significant changes compared to prior EKG performed on 05/27/2020 at 20:37.
[2020-06-11] MEDS: LORazepam 0.5 MG TAB PO (07:05)
--- NOTE | 2020-06-11 07:21 | DI.RAD_ITS ---
EXAM: XR PORTABLE CHEST AP CLINICAL HISTORY: SOB TECHNIQUE: 2D digital imaging was performed. COMPARISON: CR XR PORTABLE CHEST AP from 01/09/2020 FINDINGS: LUNGS: Clear. No pleural abnormality seen. HEART: Normal. MEDIASTINUM: Normal. BONES: Degenerative changes thoracic spine both shoulders. IMPRESSION: No acute pulmonary findings. DATA REPOSITORY: RADIATION DOSE DELIVERED:
--- NOTE | 2020-06-11 07:52 | DI.VRAD_ITS ---
PROCEDURE INFORMATION: Exam: XR Chest, 1 View Exam date and time: 06/11/2020 6:55 AM Age: 69 years old Clinical indication: Shortness of breath; Patient HX: SOB TECHNIQUE: Imaging protocol: XR of the chest Views: 1 view. COMPARISON: CR XR PORTABLE CHEST AP 01/09/2020 3:44 PM FINDINGS: Lungs: Unremarkable. No consolidation. Pleural space: Unremarkable. No pleural effusion. No pneumothorax. Heart/Mediastinum: The patient is rotated, limiting evaluation of the mediastinum. The heart size is normal. Bones/joints: Minimal calcification is seen lateral to the right humeral head suggesting calcific tendinitis. IMPRESSION: 1. No acute process identified. 2. Calcific tendinitis involving the right shoulder. 3. There is no significant interval change from the previous study. Dictated and Authenticated by: Fernie Hdz MD. Ordering:TARYN Knowles MD
== END 2020-06-11 08:26 | disposition home or self-care (01) ==
LOC: ER 07:48
PROVIDERS: Emergency Provider Emergency Medicine; PCP Nurse Practitioner Family
DX: R06.02 Shortness of breath (principal); F41.9 Anxiety disorder, unspecified; Z60.2 Problems related to living alone; I10 Essential (primary) hypertension; E11.9 Type 2 diabetes mellitus without complications; J44.9 Chronic obstructive pulmonary disease, unspecified
CPT/HCPCS: 93005; 94640; 99283; 99284; 71045; 93010

== ENCOUNTER 2020-06-11 14:21 | Emergency (ER) | payer MEDICARE, MEDICAID, SELFPAY ==
[2020-06-11 14:22] VITALS: BP 90/72; PULSE 76; RESP 18; TEMP 36.3; O2SAT 98
--- NOTE | 2020-06-11 14:29 | ED.GENADUL_ITS ---
Discharge Plan Disposition Patient Disposition: HOME Condition: Stable Discharge Details Clinical Impression: Anxiety Primary Care Provider: Sebastián Stephens ED Provider: Katie Rabago Home Meds and New Rx's Prescriptions: New lorazepam 0.5 mg tablet 0.5 mg PO Q4H PRN (Reason: anxiety) Qty: 3 RF: 0 No Action propranolol 20 mg tablet 40 mg PO BID RF: 0 Flovent HFA 220 mcg/actuation HFA aerosol inhaler 2 puff IH BID RF: 0 lactulose 20 gram/30 mL solution 30 gm PO BID MDD 40 g PRN (Reason: mental confusion, constipation) Qty: 1200 RF: 0 quetiapine 100 MG tablet 100 mg PO HS RF: 0 glyburide-metformin 1 EACH tablet 500 tab-cap PO BID RF: 0 albuterol sulfate [ProAir HFA] 8.5 GM HFA aerosol inhaler 1 puff Inhalation Q4H PRN RF: 0 pantoprazole 40 MG tablet,delayed release (DR/EC) 40 mg PO DAILY RF: 0 lisinopril 40 MG tablet 40 mg PO DAILY RF: 0 docusate sodium [Colace] 100 mg capsule 100 mg PO BID Qty: 100 RF: 0 simvastatin 40 MG tablet 40 mg PO HS RF: 0 calcium carbonate-vitamin D3 1 EACH tablet 1 ea PO BID RF: 0 magnesium oxide 400 mg magnesium Capsule 400 mg PO DAILY RF: 0 triamcinolone acetonide 0.5 % cream 1 applic TOPICAL PRN PRNRF: 0 benzonatate 100 mg capsule 100 mg PO PRN PRNRF: 0 clotrimazole-betamethasone 1-0.05 % cream 1 applic TOPICAL PRN PRNRF: 0 Discharge Instructions Instructions: Anxiety (ED) Additional Instructions: Follow up with primary care provider in 3-5 days. Return to ED sooner if any worsening or concerns. Increase oral fluids. Please take Tylenol or Ibuprofen with food every 4-6 hours as needed for pain and swelling. Take medications as prescribed. Referrals: Sebastián Stephens NP [Primary Care Provider] - Discharge Data Discharge Date/Time-TO BE ENTERED AT DEPARTURE: 06/11/20 15:58 Medical Decision Making 69-year-old female presents to the ED chief complaint of shortness of breath. She has been seen in the emergency department for the second time today. On her earlier visit she did get a EKG chest x-ray and lab work witch were all within normal limits. Upon initial exam she is talking in full sentences, lungs are clear to auscultation bilaterally. She states that she used her handheld inhalers approximately 1 hour prior to arrival. She states that they do not work. She states that the anxiety medication that she was given on her prior visit helped for a little while. She denies any pain anywhere upon arrival. She does have a past medical history of hypertension hypercholesterolemia, COPD, diabetes, anxiety. At this time physical exam is within normal limits there is no evidence of trouble breathing upon arrival. Patient was given 0.5 mg of lorazepam here in department. Discussed follow-up care and home care. Verbalized understanding. Prescription given for 3 tablets of lorazepam for anxiety. Patient does have a PCP appointment next week. Instructed to follow-up or return to the ED for any worsening symptoms or concerns. HPI General Mode of arrival: EMS . Date/Time Provider Initiated Documentation: 06/11/20 14:27 . Limitations to Documentation: no limitations . Information obtained by: patient and EMS . HPI Narrative: 69-year-old female presents to the ED chief complaint of shortness of breath. She has been seen in the emergency department for the second time today. On her earlier visit she did get her EKG chest x-ray and lab work with were all within normal limits. Upon initial exam she is talking in full sentences, lungs are clear to auscultation bilaterally. She states that she used her handheld inhalers approximately 1 hour prior to arrival. She states that they do not work. She states that the anxiety medication that she was given on her prior visit helped for a little while. She denies any pain anywhere upon arrival. She does have a past medical history of hypertension hypercholesterolemia, COPD, diabetes, anxiety. Related Data Home Medications Medication Instructions Recorded Confirmed lisinopril 40 mg PO DAILY 02/20/13 06/11/20 pantoprazole 40 mg PO DAILY 02/20/13 06/11/20 albuterol sulfate [ProAir HFA] 1 puff INHALATION Q4H PRN inhaler 09/22/16 06/11/20 glyburide-metformin 500 tab-cap PO BID tab-cap 09/22/16 06/11/20 quetiapine 100 mg PO HS 09/22/16 06/11/20 calcium carbonate-vitamin D3 1 ea PO BID 10/10/17 06/11/20 simvastatin 40 mg PO HS 10/10/17 06/11/20 fluticasone propionate 220 2 puff IH BID gm 11/08/18 06/11/20 mcg/actuation HFA aerosol inhaler propranolol 20 mg tablet 40 mg PO BID 11/08/18 06/11/20 lactulose 20 gram/30 mL oral 30 gm PO BID PRN #1200 ml MDD 40 g 03/14/19 06/11/20 solution magnesium oxide 400 mg PO DAILY 07/23/19 06/11/20 docusate sodium [Colace] 100 mg PO BID #100 cap 04/06/20 06/11/20 benzonatate 100 mg PO PRN PRN 06/11/20 06/11/20 clotrimazole-betamethasone 1 applic TOPICAL PRN PRN 06/11/20 06/11/20 lorazepam 0.5 mg PO Q4H PRN #3 tab 06/11/20 triamcinolone acetonide 1 applic TOPICAL PRN PRN 06/11/20 06/11/20 Previous Rx's Medication Instructions Recorded lactulose 20 gram/30 mL oral 30 gm PO BID PRN #1200 ml MDD 40 g 03/14/19 solution docusate sodium [Colace] 100 mg PO BID #100 cap 04/06/20 lorazepam 0.5 mg PO Q4H PRN #3 tab 06/11/20 Allergies Allergy/AdvReac Type Severity Reaction Status Date / Time thiopental sodium Allergy Skin Rash Unverified 06/11/20 14:26 [[facility] General Stated Complaint: RespSymp LYNNETTE: 3 Review of Systems Narrative: Constitutional: Negative for weight loss, alert and oriented, well groomed, normal body habitus, appears comfortable. HEENT: Denies trauma, headaches, blurry vision, nasal discharge, sore throat, trouble swallowing. Chest: Denies chest pain, palpitations, irregular rhythm, hypertension. Respiratory: Denies cough, hemoptysis. Positive shortness of breath. GI: Denies abdominal pain, nausea, vomiting, diarrhea, constipation. : Denies dysuria, hematuria, flank pain, rectal bleeding. Neuro: Denies dizziness, blurry vision, weakness, syncope, headache or facial numbness. Hematologic: Denies easy bruising, intolerance to heat or cold, hair loss. [facility] Medical History Anemia Anxiety Benign essential tremor Carpal tunnel syndrome Chronic low back pain Colonoscopy planned Constipation COPD (chronic obstructive pulmonary disease) Diabetes mellitus Diverticulitis of large intestine Diverticulosis Eczema Financial difficulties GERD (gastroesophageal reflux disease) Hair loss HTN (hypertension) Hypercholesterolemia Learning disability Lives alone with help available Palliative care patient Restless legs takes Premapaxil Sleep disorder Social isolation improved Vertigo Surgical History bladder suspension for incontinence Abdominal hysterectomy (~1979) for heavy bleeding. Arthroplasty of knee L knee Dr Fuentes Cholecystectomy laparoscopic 03/2011 Extraction of cataract in [place] History of colonoscopy (~07/24/19) Oophrectomy, Both (04/09/13) laparotomy. aoc and kk. Family History Sister Heart disease Son Parent-child estrangement nec Daughter Parent-child estrangement nec Substance abuse Social History Smoking/Tobacco Use Status: Former Tobacco Use Tobacco: How many years used: 40 Smoking risk assessment performed?: Yes Alcohol Intake: former Drug use: Never Substance use type: does not use Caregiver/Support person: No Household members: none Housing: apartment Number of Children: 0 Communication Needs: Cannot Read Education Level: middle school Details: finished 6th grade only Do you need help understanding health information?: Always current occupation: always disabled; worked as [employer] for 5 years in her late teens, early 20s Pets and animals: No What is your relationship status?: How often do you talk on the phone with friends or family?: never How often do you get together with friends or relatives?: never Panel score (0-1 are the most socially isolated patients): 0 What type of physical activity do you participate in: walking and irregular exercise Duration: < 15 minutes/day Frequency: 1-2 times per week Special pankaj needs: No Agree to transfusion: Yes Seatbelt use: always Drive 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 Estranged from both her children, no family, no DPOA. Daughter with SA; her children taken from her. Son incarcerated for life. Exam Narrative Exam Narrative: Constitutional: Alert and oriented x3. Appears stated age. Normal body habitus. Head: Normocephalic, no trauma. Eyes: Pupils PERRLA, Red reflex noted, EOM's intact. Eyelids symmetrical without lesions, discharge, or swelling. ENT: Bilateral TM's WNL, External ear normal to inspection, no mastoid TTP, swelling, or erythema, Nasal turbinates WNL, no nasal discharge. Normal dentition, Posterior pharynx WNL, no exudate. Chest: RRR, Normal S1, S2, distal pulses intact. Resp: Lungs clear to auscultation bilaterally, no wheezes, rales, or rhonchi. Musculoskeletal: Normal gait, 5/5 strength to all four extremities. Skin: No suspicious rashes or lesions. Capillary refill less than 2 sec. Neurologic: Cranial nerves II-XII intact. Alert and oriented x 3. DTR's intact. Hematologic/Lymphatic: No ecchymosis, no lymphadenopathy. Course Vital Signs Vital signs: Vital Signs Temperature 36.3 C L 06/11/20 14:22 Pulse 76 06/11/20 14:22 Respiratory Rate 18 06/11/20 14:22 Blood Pressure 90/72 L 06/11/20 14:22 Pulse Oximetry 98 06/11/20 14:22 Temperature 36.3 C L 06/11/20 14:22 Temperature Source Temporal Artery Scan 06/11/20 14:22 Pulse 76 06/11/20 14:22 Respiratory Rate 18 06/11/20 14:22 Blood Pressure 90/72 L 06/11/20 14:22 Blood Pressure Position Sitting 06/11/20 14:22 Pulse Oximetry 98 06/11/20 14:22 Oxygen Delivery Method Room Air 06/11/20 14:22 Oxygen Flow Rate 0 06/11/20 14:22
[2020-06-11] MEDS: LORazepam 0.5 MG TAB PO (14:37)
== END 2020-06-11 15:58 | disposition home or self-care (01) ==
LOC: ER 15:36
PROVIDERS: Emergency Provider Registered Nurse Emergency; PCP Nurse Practitioner Family
DX: R06.02 Shortness of breath (principal); F41.9 Anxiety disorder, unspecified; I10 Essential (primary) hypertension; J44.9 Chronic obstructive pulmonary disease, unspecified; Z87.891 Personal history of nicotine dependence; E11.9 Type 2 diabetes mellitus without complications; Z79.84 Long term (current) use of oral hypoglycemic drugs
CPT/HCPCS: 94640; 99283

== ENCOUNTER 2020-06-15 19:12 | Emergency (ER) | payer MEDICARE, MEDICAID, SELFPAY ==
[2020-06-15] VITALS (16 sets, daily range): BP systolic 118–162; BP diastolic 81–134; PULSE 56–126; RESP 14–24; TEMP 36.1; O2SAT 98–100
--- NOTE | 2020-06-15 19:22 | ED.GENADUL_ITS ---
Discharge Plan Disposition Patient Disposition: HOME Condition: Stable Discharge Details Clinical Impression: Anxiety Primary Care Provider: Sebastián Stephens ED Provider: Osmin Hein Home Meds and New Rx's Prescriptions: Continued propranolol 20 mg tablet 40 mg PO BID RF: 0 Flovent HFA 220 mcg/actuation HFA aerosol inhaler 2 puff IH BID RF: 0 lactulose 20 gram/30 mL solution 30 gm PO BID MDD 40 g PRN (Reason: mental confusion, constipation) Qty: 1200 RF: 0 quetiapine 100 MG tablet 100 mg PO HS RF: 0 glyburide-metformin 1 EACH tablet 500 tab-cap PO BID RF: 0 albuterol sulfate [ProAir HFA] 8.5 GM HFA aerosol inhaler 1 puff Inhalation Q4H PRN RF: 0 pantoprazole 40 MG tablet,delayed release (DR/EC) 40 mg PO DAILY RF: 0 lisinopril 40 MG tablet 40 mg PO DAILY RF: 0 docusate sodium [Colace] 100 mg capsule 100 mg PO BID Qty: 100 RF: 0 simvastatin 40 MG tablet 40 mg PO HS RF: 0 calcium carbonate-vitamin D3 1 EACH tablet 1 ea PO BID RF: 0 magnesium oxide 400 mg magnesium Capsule 400 mg PO DAILY RF: 0 triamcinolone acetonide 0.5 % cream 1 applic TOPICAL PRN PRNRF: 0 benzonatate 100 mg capsule 100 mg PO PRN PRNRF: 0 clotrimazole-betamethasone 1-0.05 % cream 1 applic TOPICAL PRN PRNRF: 0 Discharge Instructions Instructions: Anxiety (ED) Additional Instructions: Ativan as directed. Remember this medication may cause addiction and drowsiness. Please watch for new or worsening symptoms and return to the ER for any concerns. I strongly recommend that you follow-up on with your primary care provider as already scheduled. I have placed you on the care management list, they should be contacting you within the next 24-48 hours to discuss your outpatient needs and resources. Medical Decision Making This is a 69-year-old female with multiple recent similar visits, presenting via EMS, for ongoing anxiety that she reports causes her shortness of breath. Denies recent illness, trauma, fever, cough, chest pain, pain or swelling her legs. Denies recent travel. She states that during her recent ER visit she was given Ativan which helped greatly however she ran out of them earlier today prompting her to come back to the ER because she is unable to control her symptoms. Clinically she appears well, nontoxic although she is anxious and slightly hypertensive. She is able to speak in full sentences, lungs are clear to auscultation, and her O2 sats are 99% on room air. Patient is requesting to stay here overnight and go home tomorrow morning. When I asked her why, she cannot give me a clear answer, simply that she does not want to go home. Given her history and similar presentations, this is likely anxiety once again. Patient comfortable with obtaining a screening EKG and I will give a single dose of Ativan here. She recently had a chest x-ray which I reviewed, I do not believe obtaining a repeat chest x-ray or basic laboratory values are indicated. EKG performed at 1941, reviewed by Dr. Yanes. Please see his official report. Normal sinus rhythm. Ventricular rate of 71. No STEMI. EKG is unremarkable. Patient's heart rate trended down nicely with Ativan. O2 sat remains in the high 90s on room air. She reports that she is feeling improvement. Given her stable vital signs, improvement with medication, clear lungs to auscultation, in the setting of recent similar visits, I do not feel as though further emergent work-up is indicated. She will be given a take-home pack of Ativan 0.5 mg. She is to follow-up with her primary care provider on as already scheduled. I will also place her on the care management list to help expedite outpatient resources that may be beneficial. Patient did show interest in obtaining a pet cat. Medical Records Medical records reviewed: Yes I reviewed the patient's medical records. HPI General Mode of arrival: EMS . Date/Time Provider Initiated Documentation: 06/15/20 19:22 . Limitations to Documentation: no limitations . Information obtained by: patient and EMS . HPI Narrative: This is a 69-year-old female who is a DNR-DNI, past medical history that includes anxiety, palliative care status, social isolation, chronic low back pain, learning disability, GERD, COPD, anemia, diabetes, hypertension, depression, presenting to the ER via EMS for ongoing anxiety. She states that she was recently here in the ER for similar symptoms, given a prescription of medication. She states that those medicines help her however when they wear off she becomes anxious and short of breath. She denies recent illness, trauma, fever, chest pain, cough abdominal pain, nausea, vomiting, headache, visual changes, numbness, tingling, weakness, change in bowel or bladder function. She is scheduled to be seen by her primary care provider on but does not believe that she can wait that long without any more of the medication it helps with her anxiety. Per EMS she ambulated down the sidewalk to the ambulance on her own will, speaking in full sentences, in no respiratory distress whatsoever. Related Data Home Medications Medication Instructions Recorded Confirmed lisinopril 40 mg PO DAILY 02/20/13 06/15/20 pantoprazole 40 mg PO DAILY 02/20/13 06/15/20 albuterol sulfate [ProAir HFA] 1 puff INHALATION Q4H PRN inhaler 09/22/16 06/15/20 glyburide-metformin 500 tab-cap PO BID tab-cap 09/22/16 06/15/20 quetiapine 100 mg PO HS 09/22/16 06/15/20 calcium carbonate-vitamin D3 1 ea PO BID 10/10/17 06/15/20 simvastatin 40 mg PO HS 10/10/17 06/15/20 fluticasone propionate 220 2 puff IH BID gm 11/08/18 06/15/20 mcg/actuation HFA aerosol inhaler propranolol 20 mg tablet 40 mg PO BID 11/08/18 06/15/20 lactulose 20 gram/30 mL oral 30 gm PO BID PRN #1200 ml MDD 40 g 03/14/19 06/15/20 solution magnesium oxide 400 mg PO DAILY 07/23/19 06/15/20 docusate sodium [Colace] 100 mg PO BID #100 cap 04/06/20 06/15/20 benzonatate 100 mg PO PRN PRN 06/11/20 06/15/20 clotrimazole-betamethasone 1 applic TOPICAL PRN PRN 06/11/20 06/15/20 triamcinolone acetonide 1 applic TOPICAL PRN PRN 06/11/20 06/15/20 Previous Rx's Medication Instructions Recorded lactulose 20 gram/30 mL oral 30 gm PO BID PRN #1200 ml MDD 40 g 03/14/19 solution docusate sodium [Colace] 100 mg PO BID #100 cap 04/06/20 Allergies Allergy/AdvReac Type Severity Reaction Status Date / Time thiopental sodium Allergy Skin Rash Unverified 06/15/20 19:28 [[facility]] General Stated Complaint: Anxiety LYNNETTE: 3 Review of Systems Constitutional Constitutional: Denies fatigue, Denies fever(s), Denies headache(s) and Denies weakness Eyes Eyes: Denies change in vision ENT Ears, Nose, Mouth, and Throat: Denies headache(s), Denies nasal discharge, Denies neck pain and Denies sore throat Cardiovascular Cardiovascular: Denies chest pain and Reports dyspnea Respiratory Respiratory: Denies cough and Reports dyspnea Gastrointestinal Gastrointestinal: Denies abdominal pain, Denies diarrhea, Denies nausea and Denies vomiting Genitourinary Genitourinary: Denies dysuria Musculoskeletal Musculoskeletal: Denies neck pain, Denies numbness and Denies tingling Integumentary/Breasts Skin/Breast: Denies rash Neurologic Neurologic: Denies headache(s), Denies numbness, Denies tingling and Denies weakness Psychiatric Psychiatric: Reports anxiety, Denies homicidal ideation and Denies suicidal ideation Endocrine Endocrine: Denies fatigue [facility] Medical History Anemia Anxiety Benign essential tremor Carpal tunnel syndrome Chronic low back pain Colonoscopy planned Constipation COPD (chronic obstructive pulmonary disease) Diabetes mellitus Diverticulitis of large intestine Diverticulosis Eczema Financial difficulties GERD (gastroesophageal reflux disease) Hair loss HTN (hypertension) Hypercholesterolemia Learning disability Lives alone with help available Palliative care patient Restless legs takes Premapaxil Sleep disorder Social isolation improved Vertigo Surgical History bladder suspension for incontinence Abdominal hysterectomy (~1979) for heavy bleeding. Arthroplasty of knee L knee Dr Fuentes Cholecystectomy laparoscopic 03/2011 Extraction of cataract in [place] History of colonoscopy (~07/24/19) Oophrectomy, Both (04/09/13) laparotomy. aoc and kk. Family History Sister Heart disease Son Parent-child estrangement nec Daughter Parent-child estrangement nec Substance abuse Social History Smoking/Tobacco Use Status: Former Tobacco Use Tobacco: How many years used: 40 Smoking risk assessment performed?: Yes Alcohol Intake: former Drug use: Never Substance use type: does not use Caregiver/Support person: No Household members: none Housing: apartment Number of Children: 0 Communication Needs: Cannot Read Education Level: middle school Details: finished 6th grade only Do you need help understanding health information?: Always current occupation: always disabled; worked as [employer] for 5 years in her late teens, early 20s Pets and animals: No What is your relationship status?: How often do you talk on the phone with friends or family?: never How often do you get together with friends or relatives?: never Panel score (0-1 are the most socially isolated patients): 0 What type of physical activity do you participate in: walking and irregular exercise Duration: < 15 minutes/day Frequency: 1-2 times per week Special pankaj needs: No Agree to transfusion: Yes Seatbelt use: always Drive intox or ride w/intox 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 Estranged from both her children, no family, no DPOA. Daughter with SA; her children taken from her. Son incarcerated for life. Exam Const General: cooperative, healthy appearing, comfortable, no acute distress and anxious Orientation: alert and awake [facility] Head: normal to inspection, normocephalic and atraumatic Face and sinus: normal facial exam Mouth: moist mucous membranes Eyes General: appearance normal, both eyes and all related structures Conjunctivae: conjunctivae normal Sclera: sclerae normal Neck Neck: normal visual inspection, full ROM, no meningeal signs, trachea midline, supple and nontender Resp Effort & Inspection: normal respiratory effort and able to speak in complete sentences Auscultation: clear to auscultation bilaterally Cardio Rate: regular rate Rhythm: regular rhythm GI Palpation: soft and nontender Back/Spine/Pelvis Back: No back tenderness Skin General skin exam: no rashes or lesions noted Neuro General: patient alert, patient awake, moves all extremities and no focal motor deficits Cognition: normal cognition Speech: speech normal Gait: normal gait Motor: muscle tone normal throughout Sensory Exam: no sensory deficits noted Extrem General: normal to inspection, full ROM, capillary refill normal, no pedal edema and no calf tenderness Psych Appearance: grossly normal Mental Status: mental status grossly normal Speech and Movement: speech and movement normal Mood: anxious mood Affect: anxious affect Attitude: cooperative Thought Process: normal Thought Content: normal Insight: fair Judgment: fair Course Vital Signs Vital signs: Vital Signs Pulse 84 06/15/20 19:15 Respiratory Rate 22 06/15/20 19:15 Blood Pressure 162/134 H 06/15/20 19:15 Pulse Oximetry 99 06/15/20 19:15 Pulse 84 06/15/20 19:15 Respiratory Rate 22 06/15/20 19:15 Blood Pressure 162/134 H 06/15/20 19:15 Blood Pressure Position Sitting 06/15/20 19:15 Pulse Oximetry 99 06/15/20 19:15 Oxygen Delivery Method Room Air 06/15/20 19:15 Oxygen Flow Rate 0 06/15/20 19:15
--- NOTE | 2020-06-15 19:30 | RT.EKG_ITS ---
APPROVED REPORT Exam: Resting ECG Patient Location: E HR:71 bpm ECG Measurements Heart Rate 71 AXIS MA [id number] P [id number] QRSd 81 QRS 1 QT 389 T 54 QTc 423 Conclusion NSR, low voltage
[2020-06-15] MEDS: LORazepam 1 MG TAB PO (19:40)
--- NOTE | 2020-06-15 20:26 | NUR.NOTE ---
sent referral to CM for recurring ER visits/ outpatient service available. [facility] ED Nursing Note:
[2020-06-15] MEDS: LORazepam 0.5 MG TAB PO (20:35)
--- NOTE | 2020-06-15 20:56 | NUR.NOTE ---
Nursing Note:Discussed having a pet for companionship, suggested a cat. States she would like to have a cat. I asked if she had been around cats in the past and if she had any difficulty breathing r/t them or any allergies and she said no. Rosa [place] and I will work on getting a cat from the [facility] . I let patient know we would be in touch with her.
== END 2020-06-15 20:40 | disposition home or self-care (01) ==
PROVIDERS: Emergency Provider Physician Assistant; PCP Nurse Practitioner Family
DX: F41.8 Other specified anxiety disorders (principal); J44.9 Chronic obstructive pulmonary disease, unspecified; Z87.891 Personal history of nicotine dependence; E11.9 Type 2 diabetes mellitus without complications; Z79.84 Long term (current) use of oral hypoglycemic drugs; I10 Essential (primary) hypertension
CPT/HCPCS: 93005; 99283; 93010

== ENCOUNTER 2020-09-02 09:22 | Emergency (ER) | payer MEDICARE, MEDICAID, SELFPAY ==
[2020-09-02] VITALS (43 sets, daily range): BP systolic 104–141; BP diastolic 52–90; PULSE 54–99; RESP 0–30; TEMP 36.6; O2SAT 96–100
--- NOTE | 2020-09-02 09:15 | RT.EKG_ITS ---
APPROVED REPORT Exam: Resting ECG Patient Location: E HR:67 bpm ECG Measurements Heart Rate 67 AXIS WY 202 P 37 QRSd 77 QRS 3 QT 395 T 79 QTc 417 Conclusion Sinus rhythm...normal P axis, V-rate 60- 99 Low voltage, precordial leads...precordial leads <1.0mV
--- NOTE | 2020-09-02 09:20 | ED.GENADUL_ITS ---
Discharge Plan Disposition Patient Disposition: HOME Condition: Improving Discharge Details Clinical Impression: Atypical chest pain Primary Care Provider: Sebastián Stephens ED Provider: Suyapa Agarwal Home Meds and New Rx's Prescriptions: Continued propranolol 20 mg tablet 40 mg PO BID RF: 0 Flovent HFA 220 mcg/actuation HFA aerosol inhaler 2 puff IH BID RF: 0 lactulose 20 gram/30 mL solution 30 gm PO BID MDD 40 g PRN (Reason: mental confusion, constipation) Qty: 1200 RF: 0 quetiapine 100 MG tablet 100 mg PO HS RF: 0 glyburide-metformin 1 EACH tablet 500 tab-cap PO BID RF: 0 albuterol sulfate [ProAir HFA] 8.5 GM HFA aerosol inhaler 1 puff Inhalation Q4H PRN RF: 0 pantoprazole 40 MG tablet,delayed release (DR/EC) 40 mg PO DAILY RF: 0 lisinopril 40 MG tablet 40 mg PO DAILY RF: 0 docusate sodium [Colace] 100 mg capsule 100 mg PO BID Qty: 100 RF: 0 simvastatin 40 MG tablet 40 mg PO HS RF: 0 calcium carbonate-vitamin D3 1 EACH tablet 1 ea PO BID RF: 0 magnesium oxide 400 mg magnesium Capsule 400 mg PO DAILY RF: 0 triamcinolone acetonide 0.5 % cream 1 applic TOPICAL PRN PRNRF: 0 benzonatate 100 mg capsule 100 mg PO PRN PRNRF: 0 clotrimazole-betamethasone 1-0.05 % cream 1 applic TOPICAL PRN PRNRF: 0 Discharge Instructions Instructions: Chest Pain (ED) Additional Instructions: Drink plenty of fluids and get plenty of rest. Alternate tylenol and motrin as needed and directed for pain. Follow-up with your primary care doctor in 1 week for reevaluation and for outpatient stress test if your symptoms do not improve or worsen Return to the emergency department with any worsening or new concerning symptoms. Discharge Data Discharge Physician: Suyapa Agarwal Medical Decision Making 70-year-old female with a history of GERD, anxiety, COPD, hypertension, hyperlipidemia, diabetes presents for a brief episode of left-sided chest pain that started while sitting off the edge of her bed today. No associated symptoms. No chest pain at present. EKG notes a rate of 66, sinus, T wave inversion in aVL seen in previous EKG, no STEMI, nondiagnostic. Patient appears comfortable and nontoxic. Her vitals are within normal limits. No wheezing or rhonchi noted. Patient has a longstanding history of anxiety and was seen here 4 times within a month a few months ago for anxiety and chest pain. Differential diagnosis includes ACS, electrolyte abnormality, arrhythmia, dehydration, anxiety, GI etiology. Will check screening labs, chest x-ray and give aspirin and reassess. Patient states she has COPD and would like her inhaler. She has no wheezing on exam but slightly diminished breath sounds bilaterally. Patient also notes to feeling anxious. Will give a dose of Ativan p.o. and a DuoNeb. Labs and imaging reviewed and unremarkable. Patient reassessed and she feels much better and would like to go home. Patient eventually agreeable to stay for a second troponin and EKG. Repeat troponin negative. Repeat EKG unchanged. Patient is requesting to go home. She denies any symptoms while here in the ED. Advised that patient follow-up with her primary care doctor within the next week for reevaluation and for consideration for outpatient stress test. Usual and customary return precautions given prior to discharge. Medical Records Medical records reviewed: Yes I reviewed the patient's medical records. Imaging Data Radiologic Study: Radiologist's impression: XR CHEST 2V PA LATERAL CLINICAL HISTORY: chest pain, sob, r/o acute disease TECHNIQUE: 2D digital imaging was performed. COMPARISON: CR,XR XR CHEST 2V PA LATERAL from 05/13/2019 FINDINGS: MEDIASTINUM: Normal. HEART: Normal. PULMONARY VASCULATURE: Normal. LUNGS: Clear. PLEURAL SPACE: No pleural effusion or pneumothorax. BONE:Within normal limits for the patient's age. OTHER FINDINGS:Normal. IMPRESSION: No acute pulmonary findings. Lab Data Lab results reviewed: Yes I reviewed the patient's lab results. Labs: Laboratory Tests Range/Units 09/02/20 09/02/20 09/02/20 09:45 09:45 09:45 WBC (4.4-10.8) 10^3/uL 11.62 H RBC (3.93-5.22) 10^6/uL 4.56 Hgb (11.2-15.7) g/dL 11.1 L Hct (36.0-46.0) % 35.9 L MCV (80-95) fL 78.7 L MCH (27.0-33.0) pg 24.3 L MCHC (32.0-36.0) % 30.9 L RDW (11.7-14.6) % 15.0 H Plt Count (130-400) 10^3/uL 259 MPV (8.0-11.0) fL 9.4 Immature Gran % 0.2 Neutrophils % 67.4 Lymphocytes % 22.8 Monocytes % 6.5 Eosinophils % 2.2 Basophils % 0.9 Nucleated RBC % % 0 Absolute Neutrophils (1.2-6.7) 10^3/uL 7.83 H Absolute Lymphocytes (1.2-3.4) 10^3/uL 2.65 Absolute Monocytes (0.1-0.8) 10^3/uL 0.76 Absolute Eosinophils (0.0-0.7) 10^3/uL 0.26 Absolute Basophils (0.0-0.2) 10^3/uL 0.10 PT (9.3-11.0) sec 9.9 INR (0.9-1.1) 1.0 APTT (21.0-27.5) sec 24.8 Sodium (136-145) mmol/L 140 Potassium (3.5-5.1) mmol/L 3.9 Chloride (98-107) mmol/L 104 Carbon Dioxide (21.0-32.0) mmol/L 27.8 Anion Gap (3-11) mmol/L 8.2 BUN (7-18) mg/dL 12 Creatinine (0.55-1.02) mg/dL 0.8 Estimated GFR/1.73 m2 (mL/min/1.73m2) >= 60.00 Glucose (74-106) mg/dL 167 H Calcium (8.5-10.1) mg/dL 8.7 Magnesium (1.8-2.4) mg/dL 1.8 Total Bilirubin (0.2-1.0) mg/dL 0.4 AST (15-37) U/L 15 ALT (14-59) U/L 23 Alkaline Phosphatase (46-116) U/L 90 Troponin I (<0.06) ng/mL < 0.05 Total Protein (6.4-8.2) g/dL 7.1 Albumin (3.4-5.0) g/dL 3.4 Range/Units 09/02/20 12:48 WBC (4.4-10.8) 10^3/uL RBC (3.93-5.22) 10^6/uL Hgb (11.2-15.7) g/dL Hct (36.0-46.0) % MCV (80-95) fL MCH (27.0-33.0) pg MCHC (32.0-36.0) % RDW (11.7-14.6) % Plt Count (130-400) 10^3/uL MPV (8.0-11.0) fL Immature Gran % Neutrophils % Lymphocytes % Monocytes % Eosinophils % Basophils % Nucleated RBC % % Absolute Neutrophils (1.2-6.7) 10^3/uL Absolute Lymphocytes (1.2-3.4) 10^3/uL Absolute Monocytes (0.1-0.8) 10^3/uL Absolute Eosinophils (0.0-0.7) 10^3/uL Absolute Basophils (0.0-0.2) 10^3/uL PT (9.3-11.0) sec INR (0.9-1.1) APTT (21.0-27.5) sec Sodium (136-145) mmol/L Potassium (3.5-5.1) mmol/L Chloride (98-107) mmol/L Carbon Dioxide (21.0-32.0) mmol/L Anion Gap (3-11) mmol/L BUN (7-18) mg/dL Creatinine (0.55-1.02) mg/dL Estimated GFR/1.73 m2 (mL/min/1.73m2) Glucose (74-106) mg/dL Calcium (8.5-10.1) mg/dL Magnesium (1.8-2.4) mg/dL Total Bilirubin (0.2-1.0) mg/dL AST (15-37) U/L ALT (14-59) U/L Alkaline Phosphatase (46-116) U/L Troponin I (<0.06) ng/mL < 0.05 Total Protein (6.4-8.2) g/dL Albumin (3.4-5.0) g/dL ECG Data Attestation: I personally reviewed and interpreted this ECG (s) as follows: Interpretation: #1 --Rate of 67, sinus, no acute ST elevation or depression. T wave inversion in aVL seen in previous EKG. KY 202. QRS 77. QTc 417. #2 --Rate of 66, sinus, no acute ST elevation or depression. T wave inversion in aVL which has been seen in previous EKG. No STEMI. Nondiagnostic. KY 197. QRS 81. QTc 410. HPI General Mode of arrival: ambulatory . Date/Time Provider Initiated Documentation: 09/02/20 09:24 . Limitations to Documentation: no limitations . Information obtained by: patient . HPI Narrative: Patient is a 70-year-old female with a history of GERD, anxiety, COPD, diabetes, hypertension, hyperlipidemia presents to the ED with complaint of chest pain that started while sitting on her bed this morning. She states the pain was sharp, 7/10, left-sided, without radiation. She states the pain lasted 15 minutes and then resolved. She denies any aggravating or alleviating factors. Related Data Home Medications Medication Instructions Recorded Confirmed lisinopril 40 mg PO DAILY 02/20/13 09/02/20 pantoprazole 40 mg PO DAILY 02/20/13 09/02/20 albuterol sulfate [ProAir HFA] 1 puff INHALATION Q4H PRN inhaler 09/22/16 09/02/20 glyburide-metformin 500 tab-cap PO BID tab-cap 09/22/16 09/02/20 quetiapine 100 mg PO HS 09/22/16 09/02/20 calcium carbonate-vitamin D3 1 ea PO BID 10/10/17 09/02/20 simvastatin 40 mg PO HS 10/10/17 09/02/20 fluticasone propionate 220 2 puff IH BID gm 11/08/18 09/02/20 mcg/actuation HFA aerosol inhaler propranolol 20 mg tablet 40 mg PO BID 11/08/18 09/02/20 lactulose 20 gram/30 mL oral 30 gm PO BID PRN #1200 ml MDD 40 g 03/14/19 09/02/20 solution magnesium oxide 400 mg PO DAILY 07/23/19 09/02/20 docusate sodium [Colace] 100 mg PO BID #100 cap 04/06/20 09/02/20 benzonatate 100 mg PO PRN PRN 06/11/20 09/02/20 clotrimazole-betamethasone 1 applic TOPICAL PRN PRN 06/11/20 09/02/20 triamcinolone acetonide 1 applic TOPICAL PRN PRN 06/11/20 09/02/20 Previous Rx's Medication Instructions Recorded lactulose 20 gram/30 mL oral 30 gm PO BID PRN #1200 ml MDD 40 g 03/14/19 solution docusate sodium [Colace] 100 mg PO BID #100 cap 04/06/20 Allergies Allergy/AdvReac Type Severity Reaction Status Date / Time thiopental sodium Allergy Skin Rash Unverified 09/02/20 09:27 [From Pentothal] General LYNNETTE: 3 Review of Systems All systems reviewed & are unremarkable except as noted in HPI and below Constitutional Constitutional: Reports as per HPI, Denies chills and Denies fever(s) Eyes Eyes: Denies blurry vision ENT Ears, Nose, Mouth, and Throat: Denies dizziness, Denies sore throat and Denies throat swelling Cardiovascular Cardiovascular: Reports chest pain and Denies dyspnea Respiratory Respiratory: Denies cough and Denies dyspnea Gastrointestinal Gastrointestinal: Denies abdominal pain, Denies diarrhea and Denies vomiting Genitourinary Genitourinary: Denies hematuria and Denies dysuria Musculoskeletal Musculoskeletal: Denies back pain and Denies numbness Integumentary/Breasts Skin/Breast: Denies lesions and Denies rash Neurologic Neurologic: Denies dizziness, Denies localized weakness and Denies numbness Allergic/Immunologic Allergic/Immunologic: Denies throat swelling [facility] Medical History Anemia Anxiety Benign essential tremor Carpal tunnel syndrome Chronic low back pain Colonoscopy planned Constipation COPD (chronic obstructive pulmonary disease) Diabetes mellitus Diverticulitis of large intestine Diverticulosis Eczema Financial difficulties GERD (gastroesophageal reflux disease) Hair loss HTN (hypertension) Hypercholesterolemia Learning disability Lives alone with help available Palliative care patient Restless legs takes Premapaxil Sleep disorder Social isolation improved Vertigo Surgical History bladder suspension for incontinence Abdominal hysterectomy (~1979) for heavy bleeding. Arthroplasty of knee L knee Dr Fuentes Cholecystectomy laparoscopic 03/2011 Extraction of cataract in [place] History of colonoscopy (~07/24/19) Oophrectomy, Both (04/09/13) laparotomy. aoc and kk. Family History Sister Heart disease Son Parent-child estrangement nec Daughter Parent-child estrangement nec Substance abuse Social History Smoking/Tobacco Use Status: Former Tobacco Use tobacco type: cigarettes Tobacco: How many years used: 40 Smoking risk assessment performed?: Yes Alcohol Intake: former Drug use: Never Substance use type: does not use Caregiver/Support person: No Household members: none Housing: apartment Number of Children: 0 Communication Needs: Cannot Read Education Level: middle school Details: finished 6th grade only Do you need help understanding health information?: Always current occupation: always disabled; worked as [employer] for 5 years in her late teens, early 20s Pets and animals: No What is your relationship status?: How often do you talk on the phone with friends or family?: never How often do you get together with friends or relatives?: never Panel score (0-1 are the most socially isolated patients): 0 What type of physical activity do you participate in: walking and irregular exercise Duration: < 15 minutes/day Frequency: 1-2 times per week Special pankaj needs: No Agree to transfusion: Yes Seatbelt use: always Drive intox or ride w/intox 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 Estranged from both her children, no family, no DPOA. Daughter with SA; her children taken from her. Son incarcerated for life. Exam Const General: cooperative and no acute distress Orientation: alert, awake and oriented x3 HENMT Head: normal to inspection Face and sinus: normal facial exam Eyes General: appearance normal, both eyes and all related structures EOM: EOM intact bilaterally Neck Neck: normal visual inspection and No submandibular swelling Lymphatic: no lymphadenopathy noted Chest Chest: normal inspection of the chest and no tenderness Resp Effort & Inspection: normal respiratory effort and able to speak in complete sentences Auscultation: clear to auscultation bilaterally Cardio Rate: regular rate Rhythm: regular rhythm GI Inspection: normal to inspection Palpation: soft, not firm, not rigid and nontender Auscultation: normal bowel sounds Skin General skin exam: no rashes or lesions noted Neuro General: patient alert, patient awake and patient oriented x3 Cognition: normal cognition Speech: speech normal Motor: muscle tone normal throughout Sensory Exam: no sensory deficits noted Extrem General: normal to inspection, full ROM, capillary refill normal, no calf tenderness bilaterally and no edema Psych Appearance: grossly normal Mental Status: mental status grossly normal Speech and Movement: speech and movement normal Affect: normal affect
--- NOTE | 2020-09-02 09:30 | DI.RAD_ITS ---
EXAM: XR CHEST 2V PA LATERAL CLINICAL HISTORY: chest pain, sob, r/o acute disease TECHNIQUE: 2D digital imaging was performed. COMPARISON: CR,XR XR CHEST 2V PA LATERAL from 05/13/2019 FINDINGS: MEDIASTINUM: Normal. HEART: Normal. PULMONARY VASCULATURE: Normal. LUNGS: Clear. PLEURAL SPACE: No pleural effusion or pneumothorax. BONE:Within normal limits for the patient's age. OTHER FINDINGS:Normal. IMPRESSION: No acute pulmonary findings. DATA REPOSITORY: RADIATION DOSE DELIVERED:
[2020-09-02 09:55] LABS: Abs Immature Grans 0.02 10^3/uL (0.0-0.06); Absolute Eosinophil Count 0.26 10^3/uL (0.0-0.7); Absolute Lymphocyte Count 2.65 10^3/uL (1.2-3.4); Basophils % 0.9; Eosinophils % 2.2; HCT 35.9 % (36.0-46.0); HGB 11.1 g/dL (11.2-15.7); Immature Grans % 0.2; Lymphocytes % 22.8; MCH 24.3 pg (27.0-33.0); MCHC 30.9 % (32.0-36.0); MCV 78.7 fL (80-95); MPV 9.4 fL (8.0-11.0); Monocytes % 6.5; Neutrophils % 67.4; Nucleated RBC 0 %; Platelet Count 259 10^3/uL (130-400); RBC 4.56 10^6/uL (3.93-5.22); RDW-SD 42.6 fL; WBC 11.62 10^3/uL (4.4-10.8)
[2020-09-02] MEDS: Aspirin 325 MG TAB PO (09:55)
[2020-09-02 09:58] LABS: Absolute Monocyte Count 0.76 10^3/uL (0.1-0.8); Absolute Neutrophil Count 7.83 10^3/uL (1.2-6.7)
[2020-09-02 10:09] LABS: PTT Activated 24.8 sec (21.0-27.5); Prothrombin Time 9.9 sec (9.3-11.0)
[2020-09-02 10:11] LABS: ALT 23 U/L (14-59); AST 15 U/L (15-37); Albumin 3.4 g/dL (3.4-5.0); Alkaline Phosphatase 90 U/L (46-116); Anion Gap 8.2 mmol/L (3-11); BUN 12 mg/dL (7-18); Bilirubin, Total 0.4 mg/dL (0.2-1.0); CO2 27.8 mmol/L (21.0-32.0); CREATININE 0.8 mg/dL (0.55-1.02); Calcium 8.7 mg/dL (8.5-10.1); Chloride 104 mmol/L (98-107); Glucose 167 mg/dL (74-106); Magnesium 1.8 mg/dL (1.8-2.4); Potassium 3.9 mmol/L (3.5-5.1); Sodium 140 mmol/L (136-145); Total Protein 7.1 g/dL (6.4-8.2)
[2020-09-02 10:12] LABS: Troponin I < 0.05 ng/mL (<0.06)
--- NOTE | 2020-09-02 10:15 | RT.EKG_ITS ---
APPROVED REPORT Exam: Resting ECG Patient Location: E HR:66 bpm ECG Measurements Heart Rate 66 AXIS [place] 197 P 63 QRSd 81 QRS 19 QT 390 T 80 QTc 410 Conclusion Sinus rhythm...normal P axis, V-rate 60- 99 Low voltage, precordial leads...precordial leads <1.0mV. No STEMI. I have reviewed and interpreted ECG and agree with software generated interpretation.
[2020-09-02] MEDS: Albuterol/Ipratropium 3 ML UPD VIAL UPD (10:34)
[2020-09-02] MEDS: LORazepam 0.5 MG TAB PO (10:34)
[2020-09-02 13:14] LABS: Troponin I < 0.05 ng/mL (<0.06)
== END 2020-09-02 15:07 | disposition home or self-care (01) ==
PROVIDERS: Emergency Provider Physician Assistant; PCP Nurse Practitioner Family
DX: R07.89 Other chest pain (principal); F41.9 Anxiety disorder, unspecified
CPT/HCPCS: 36415; 80053; 93005; 94640; 99285; 71046; 83735; 84484; 85025; 85610; 85730; 93010; J7620

== ENCOUNTER 2020-10-18 14:57 | Outpatient (CLI) | payer MEDICARE, MEDICAID, SELFPAY ==
--- NOTE | 2020-10-18 11:15 | DI.RAD_ITS ---
EXAM: XR KNEE RT 3V AP,LAT,MARU CLINICAL HISTORY: RIGHT KNEE PAIN. TECHNIQUE: 2D digital imaging was performed. COMPARISON: CR LEFT KNEE 3 VIEW COMPLETE from 10/23/2017 FINDINGS: There is no evidence of fracture or prominent joint effusion. Mild degenerative changes are noted in the medial compartment. No osseous lesions. Bone density normal. IMPRESSION: DATA REPOSITORY: RADIATION DOSE DELIVERED:
== END 2020-10-18 14:58 | disposition home or self-care (01) ==
LOC: DIORS 14:57
PROVIDERS: PCP Nurse Practitioner Family; Referring Provider Nurse Practitioner Family; Visit Provider Student in an Organized Health Care Education/Training Program
DX: M25.561 Pain in right knee (principal)
CPT/HCPCS: 73562

== ENCOUNTER 2020-11-04 18:18 | Emergency (ER) | payer MEDICARE, MEDICAID, SELFPAY ==
[2020-11-04] VITALS (16 sets, daily range): BP systolic 133–183; BP diastolic 69–155; PULSE 60–92; RESP 16–35; TEMP 36.5; O2SAT 95–100
--- NOTE | 2020-11-04 18:15 | RT.EKG_ITS ---
APPROVED REPORT Exam: Resting ECG Reason for Exam: SOB Patient Location: E HR:77 bpm ECG Measurements Heart Rate 77 AXIS ID 184 P 48 QRSd 75 QRS 4 QT 374 T 72 QTc 422 Conclusion Sinus rhythm...normal P axis
--- NOTE | 2020-11-04 18:30 | DI.RAD_ITS ---
Exam(s) XR CHEST 2V PA LATERAL EXAM: XR CHEST 2V PA LATERAL CLINICAL HISTORY: cough, copd TECHNIQUE: 2D digital imaging was performed. COMPARISON: CR XR CHEST 2V PA LATERAL from 09/02/2020 FINDINGS: MEDIASTINUM: Normal. HEART: Normal. PULMONARY VASCULATURE: Normal. LUNGS: Clear. PLEURAL SPACE: No pleural effusion or pneumothorax. BONE:Within normal limits for the patient's age. OTHER FINDINGS:Normal. IMPRESSION: No acute pulmonary findings. DATA REPOSITORY: RADIATION DOSE DELIVERED:
--- NOTE | 2020-11-04 18:36 | ED.GENADUL_ITS ---
Discharge Plan Discharge Details Chief Complaint: SOB Primary Care Provider: Sebastián Stephens ED Provider: Modesto Yanes Home Meds and New Rx's Prescriptions: Continued mirtazapine 7.5 mg tablet 15 mg PO QHS RF: 0 lactulose 10 gram/15 mL solution 15 ml PO DAILY RF: 0 quetiapine 100 mg tablet 150 mg PO HS RF: 0 budesonide-formoterol 160-4.5 mcg/actuation HFA aerosol inhaler 2 puff inhalation BID RF: 0 propranolol 20 mg tablet 40 mg PO BID RF: 0 Flovent HFA 220 mcg/actuation HFA aerosol inhaler 2 puff IH BID RF: 0 pregabalin 50 mg capsule 50 mg PO QHS Qty: 90 RF: 0 glyburide-metformin 1 EACH tablet 500 tab-cap PO BID RF: 0 albuterol sulfate [ProAir HFA] 8.5 GM HFA aerosol inhaler 1 puff Inhalation Q4H PRN RF: 0 pantoprazole 40 MG tablet,delayed release (DR/EC) 40 mg PO DAILY RF: 0 lisinopril 40 MG tablet 40 mg PO DAILY RF: 0 docusate sodium [Colace] 100 mg capsule 100 mg PO BID Qty: 100 RF: 0 simvastatin 40 MG tablet 40 mg PO HS RF: 0 calcium carbonate-vitamin D3 1 EACH tablet 1 ea PO BID RF: 0 magnesium oxide 400 mg magnesium Capsule 400 mg PO DAILY RF: 0 losartan 50 mg tablet 50 mg PO DAILY RF: 0 Stiolto Respimat 2.5-2.5 mcg/actuation mist 2 puff INHALATION DAILY RF: 0 Discharge Instructions Additional Instructions: See enclosed written instructions from respiratory therapy regarding the use of your new inhaler at home. Continue your regular medications. Follow-up with Sebastián stanley in clinic if not improved in 5 days. Return to the ER for any acute concerns Medical Decision Making 70-year-old female reports shortness of breath feeling at home for the 2 to 3 days. States she was recently prescribed a new inhaler and has not been able to figure out how to use it. She recently did stop taking Flovent upon instruction by primary care. She is not had a fever, nor significant production of sputum. She has had some mild stress due to frustration with her inhaler. She arrives to the ER with a blood pressure 183/90, afebrile, oxygenating 98% on room air. Respiratory therapy attended at the bedside and helped executive business coach the patient on the use of her new inhaler. She was given DuoNeb. Screening laboratories, EKG and chest x-ray obtained. Patient was given 0.5 mg of Ativan for mild anxiolysis. She has a chronic leukocytosis. Chemistries reassuring. Chest x-ray with no active disease appreciated. Patient improved following DuoNeb. Medical Records Medical records reviewed: Yes I reviewed the patient's medical records. Lab Data Lab results reviewed: Yes I reviewed the patient's lab results. Labs: Laboratory Results - last 24 hr 11/04/20 11/04/20 18:30 18:30 WBC 15.23 H RBC 4.89 Hgb 11.6 Hct 37.6 MCV 76.9 L MCH 23.7 L MCHC 30.9 L RDW 15.3 H Plt Count 328 MPV 9.3 Sodium 138 Potassium 3.9 Chloride 102 Carbon Dioxide 29.7 Anion Gap 6.3 BUN 17 Creatinine 0.8 Estimated GFR/1.73 m2 >= 60.00 Glucose 105 Calcium 9.5 Magnesium 1.8 Total Bilirubin 0.3 AST 17 ALT 28 Alkaline Phosphatase 117 H Troponin I < 0.05 Total Protein 8.1 Albumin 4.0 HPI General Mode of arrival: EMS . Date/Time Provider Initiated Documentation: 11/04/20 19:08 . Limitations to Documentation: no limitations . Information obtained by: patient and EMS . History of Present Illness 70 year old F presents to the emergency department with the chief complaint of [place] short of breath at home, has not been able to use new inhaler correctl, described as moderate, and is localized to the chest. Patient reports no radiation. Patient started experiencing this hour(s) and it has been intermittent. No relieving factors improve symptom(s), No exacerbating factors reported . Patient notes cough and shortness of breath; denies chest pain and fever/chills. Patient did receive the following treatments prior to arrival, none Related Data Home Medications Medication Instructions Recorded Confirmed lisinopril 40 mg PO DAILY 02/20/13 11/04/20 pantoprazole 40 mg PO DAILY 02/20/13 11/04/20 albuterol sulfate [ProAir HFA] 1 puff INHALATION Q4H PRN inhaler 09/22/16 11/04/20 glyburide-metformin 500 tab-cap PO BID tab-cap 09/22/16 11/04/20 calcium carbonate-vitamin D3 1 ea PO BID 10/10/17 11/04/20 simvastatin 40 mg PO HS 10/10/17 11/04/20 fluticasone propionate 220 2 puff IH BID gm 11/08/18 11/04/20 mcg/actuation HFA aerosol inhaler propranolol 20 mg tablet 40 mg PO BID 11/08/18 11/04/20 magnesium oxide 400 mg PO DAILY 07/23/19 11/04/20 docusate sodium [Colace] 100 mg PO BID #100 cap 04/06/20 11/04/20 pregabalin 50 mg capsule 50 mg PO QHS #90 cap 09/15/20 11/04/20 budesonide-formoterol HFA 160 2 puff INHALATION BID 10/18/20 11/04/20 mcg-4.5 mcg/actuation aerosol inhaler lactulose 10 gram/15 mL oral 15 ml PO DAILY 10/18/20 11/04/20 solution mirtazapine 7.5 mg tablet 15 mg PO QHS tab 10/18/20 11/04/20 quetiapine 100 mg tablet 150 mg PO HS tab 10/18/20 11/04/20 Stiolto Respimat 2 puff INHALATION DAILY 11/04/20 11/04/20 losartan 50 mg PO DAILY 11/04/20 11/04/20 Previous Rx's Medication Instructions Recorded docusate sodium [Colace] 100 mg PO BID #100 cap 04/06/20 pregabalin 50 mg capsule 50 mg PO QHS #90 cap 09/15/20 Allergies Allergy/AdvReac Type Severity Reaction Status Date / Time thiopental sodium Allergy Skin Rash Unverified 11/04/20 19:34 [From Pentothal] General Stated Complaint: SOB LYNNETTE: 3 Review of Systems Narrative: 6 systems reviewed and otherwise negative. FOR[facility]LY [facility], [facility] Medical History Anemia Anxiety Benign essential tremor Carpal tunnel syndrome Chronic low back pain Colonoscopy planned Constipation COPD (chronic obstructive pulmonary disease) Diabetes mellitus Diverticulitis of large intestine Diverticulosis Eczema Financial difficulties GERD (gastroesophageal reflux disease) Hair loss HTN (hypertension) Hypercholesterolemia Learning disability Lives alone with help available Palliative care patient Restless legs takes Premapaxil Right anterior knee pain seeing ortho 10/18/20 Sleep disorder Social isolation Vertigo Surgical History bladder suspension for incontinence Abdominal hysterectomy (~1979) for heavy bleeding. Arthroplasty of knee L knee Dr Fuentes Cholecystectomy laparoscopic 03/2011 Extraction of cataract in [place] History of colonoscopy (~07/24/19) Oophrectomy, Both (04/09/13) laparotomy. aoc and kk. Family History Sister Heart disease Son Parent-child estrangement nec Under care of custodial service life sentence for murder Daughter Parent-child estrangement nec Substance abuse Social History Smoking/Tobacco Use Status: Former Tobacco Use tobacco type: cigarettes Tobacco: How many years used: 40 Smoking risk assessment performed?: Yes Alcohol Intake: former Drug use: Never Substance use type: does not use Caregiver/Support person: No Household members: none Housing: apartment Number of Children: 0 Communication Needs: Cannot Read Education Level: middle school Details: finished 6th grade only Do you need help understanding health information?: Always current occupation: always disabled; worked as [employer] for 5 years in her late teens, early 20s Pets and animals: No What is your relationship status?: How often do you talk on the phone with friends or family?: never How often do you get together with friends or relatives?: never Panel score (0-1 are the most socially isolated patients): 0 What type of physical activity do you participate in: walking and irregular exercise Duration: < 15 minutes/day Frequency: 1-2 times per week Special pankaj needs: No Agree to transfusion: Yes Seatbelt use: always Drive 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 Estranged from both her children, no family, no DPOA. Daughter with SA; her children taken from her. Son incarcerated for life. Exam Narrative Exam Narrative: GEN: awake, alert, oriented 3. Pleasant, well groomed, interactive. HEAD: Normocephalic, atraumatic ENT: Mucous membranes moist, oropharynx unremarkable, External ear exam unremarkable EYES: PERRL, EOMI NECK: Full ROM, no GALLO, no menigismus CHEST/RESP: Nontender, diminished but clear to auscultation bilateral, no wheeze/rhonchi/rales CARDIOVASCULAR: RRR, no murmur, rub yusuf. 2+ Rad pulse bilateral ABDOMEN: Soft, nontender, no mass. +Bowel sounds EXT: Full ROM, no edema, no rash Neuro: Grossly normal neurologic exam, conversant, interactive. Psych: Speech fluent, thoughts congruent, affect anxious Course Vital Signs Vital signs: Vital Signs Temperature 36.5 C 11/04/20 18:24 Pulse 77 11/04/20 18:24 Respiratory Rate 24 11/04/20 18:24 Blood Pressure 183/97 H 11/04/20 18:24 Pulse Oximetry 98 11/04/20 18:24 Temperature 36.5 C 11/04/20 18:24 Temperature Source Skin 11/04/20 18:24 Pulse 77 11/04/20 18:24 Respiratory Rate 24 11/04/20 18:24 Respiratory Effort Non-Labored 11/04/20 18:24 Blood Pressure 183/97 H 11/04/20 18:24 Blood Pressure Position Sitting 11/04/20 18:24 Pulse Oximetry 98 11/04/20 18:24 Oxygen Delivery Method Room Air 11/04/20 18:24 Oxygen Flow Rate 0 11/04/20 18:24 Pain Level 0 11/04/20 18:24
[2020-11-04] MEDS: LORazepam 2 MG/ML VIAL 0.5 MG IVP (18:45)
[2020-11-04 18:49] LABS: HCT 37.6 % (36.0-46.0); HGB 11.6 g/dL (11.2-15.7); MCH 23.7 pg (27.0-33.0); MCHC 30.9 % (32.0-36.0); MCV 76.9 fL (80-95); MPV 9.3 fL (8.0-11.0); Platelet Count 328 10^3/uL (130-400); RBC 4.89 10^6/uL (3.93-5.22); RDW 15.3 % (11.7-14.6); RDW-SD 42.1 fL; WBC 15.23 10^3/uL (4.4-10.8)
[2020-11-04 19:00] LABS: ALT 28 U/L (14-59); AST 17 U/L (15-37); Alkaline Phosphatase 117 U/L (46-116); Anion Gap 6.3 mmol/L (3-11); BUN 17 mg/dL (7-18); Bilirubin, Total 0.3 mg/dL (0.2-1.0); CO2 29.7 mmol/L (21.0-32.0); CREATININE 0.8 mg/dL (0.55-1.02); Calcium 9.5 mg/dL (8.5-10.1); Chloride 102 mmol/L (98-107); Glucose 105 mg/dL (74-106); Magnesium 1.8 mg/dL (1.8-2.4); Potassium 3.9 mmol/L (3.5-5.1); Sodium 138 mmol/L (136-145); Total Protein 8.1 g/dL (6.4-8.2)
[2020-11-04 19:05] LABS: Troponin I < 0.05 ng/mL (<0.06)
--- NOTE | 2020-11-04 19:12 | RESPIRATORY ---
RT was called to ED to provide instructions on how to use a Stiolto inhaler. RT chatted with patient and explained how to use inhaler. Patient understood some but was very uneasy concerning the use of it. RT then typed up step by step directions concerning this inhaler. Instructions given to patients nurse in order for patient to reference at home once D/C. RT free to leave and nurse along with doctor now all set.
[2020-11-04] MEDS: Albuterol/Ipratropium 3 ML UPD VIAL UPD (19:17)
--- NOTE | 2020-11-04 19:31 | DI.VRAD_ITS ---
PROCEDURE INFORMATION: Exam: XR Chest Exam date and time: 11/04/2020 7:10 PM Age: 70 years old Clinical indication: Other: Cough, copd TECHNIQUE: Imaging protocol: XR of the chest. Views: 2 views. COMPARISON: CR XR CHEST 2V PA LATERAL 09/02/2020 10:19 AM FINDINGS: Lungs: No pulmonary consolidation is seen. Pleural spaces: No pleural effusion or pneumothorax is demonstrated. Heart/Mediastinum: Heart size is normal. The mediastinal contours appear normal. Bones/joints: The bony structures appear grossly intact, as seen. Osteophytes are noted along the margin of the thoracic spine. IMPRESSION: No active disease is seen in the chest. Dictated and Authenticated by: Chavez Ramos MD. Ordering:HELADIO Salvador MD
--- NOTE | 2020-11-04 20:03 | NUR.NOTE ---
Referral faxed to [facility] for short of breath follow up the week of 11/08/20. Nursing Note:
== END 2020-11-04 20:38 | disposition home or self-care (01) ==
LOC: ER 20:14
PROVIDERS: Emergency Provider Emergency Medicine; PCP Nurse Practitioner Family
DX: R06.02 Shortness of breath (principal); J44.9 Chronic obstructive pulmonary disease, unspecified
CPT/HCPCS: 80053; 85027; 93005; 94640; 96374; 99284; 71046; 83735; 84484; 93010; 99283; J2060; J7620

== ENCOUNTER 2020-11-11 12:10 | Outpatient (CLI) | payer MEDICARE, MEDICAID, SELFPAY ==
--- NOTE | 2020-11-11 | DI.US_ITS ---
Exam(s) US LOWER EXTREMITY VENOUS RT EXAM: US LOWER EXTREMITY VENOUS RT CLINICAL HISTORY: CALF PAIN RIGHT M79.661 TECHNIQUE: Grayscale, color, and doppler imaging of the deep venous system of the right lower extrem ity was performed. COMPARISON: No exams were available for comparison FINDINGS: There is no evidence of intraluminal thrombus and there is normal compression and augmentation demons trated within the common femoral vein, femoral vein, and popliteal vein. In the ipsilateral calf the interrogated veins also exhibit normal compression/ augmentation properti es. The ipsilateral saphenofemoral junction is patent. IMPRESSION: 1. No evidence of DVT in the right lower extremity. DATA REPOSITORY:
== END 2020-11-11 12:30 ==
PROVIDERS: PCP Nurse Practitioner Family; Visit Provider Nurse Practitioner Family
DX: M79.661 Pain in right lower leg (principal)
CPT/HCPCS: 93971

== ENCOUNTER 2021-03-17 17:56 | Emergency (ER) | payer MEDICARE, MEDICAID, SELFPAY ==
[2021-03-17 17:50] VITALS: BP 127/106; PULSE 96; RESP 20; TEMP 36.9; O2SAT 97
--- NOTE | 2021-03-17 18:03 | W.ED.GENAD ---
Discharge Plan Disposition Patient Disposition: HOME Condition: Stable Discharge Details Clinical Impression: Fall, CHI (closed head injury) Primary Care Provider: Sebastián Stephens ED Provider: Katie Rabago Home Meds and New Rx's Prescriptions: Continued lactulose 10 gram/15 mL solution 15 ml PO DAILY RF: 0 quetiapine 100 mg tablet 150 mg PO HS RF: 0 propranolol 20 mg tablet 40 mg PO BID RF: 0 pregabalin 50 mg capsule 50 mg PO QHS Qty: 90 RF: 0 glyburide-metformin 1 EACH tablet 500 tab-cap PO BID RF: 0 albuterol sulfate [ProAir HFA] 8.5 GM HFA aerosol inhaler 1 puff Inhalation Q4H PRN RF: 0 pantoprazole 40 MG tablet,delayed release (DR/EC) 40 mg PO DAILY RF: 0 docusate sodium [Colace] 100 mg capsule 100 mg PO BID Qty: 100 RF: 0 simvastatin 40 MG tablet 40 mg PO HS RF: 0 calcium carbonate-vitamin D3 1 EACH tablet 1 ea PO BID RF: 0 magnesium oxide 400 mg magnesium Capsule 400 mg PO DAILY RF: 0 losartan 50 mg tablet 50 mg PO DAILY RF: 0 Stiolto Respimat 2.5-2.5 mcg/actuation mist 2 puff INHALATION DAILY RF: 0 Discharge Instructions Instructions: Fall Prevention for Older Adults (ED), Head Injury (ED) Additional Instructions: X-rays show no broken bones. Please follow-up with primary care provider. Return for any worsening headache, blurry vision, confusion or any concerns. Follow up with primary care provider in 3-5 days. Return to ED sooner if any worsening or concerns. Increase oral fluids. Please take Tylenol with food every 4-6 hours as needed for pain and swelling. Referrals: Sebastián Stephens, [employer] [Primary Care Provider] - Medical Decision Making 70-year-old female presents to the ER after a mechanical trip and fall on a rug. She has some abrasion noted to bridge of her nose, abrasion noted to the right lower lip with some swelling. Denies any loss of consciousness no neck pain no back pain. No other trauma noted on exam. She is alert and oriented. She has a past medical history of anxiety, anemia, essential tremor, carpal tunnel syndrome, COPD, diverticulitis, GERD, hypertension, hypercholesterol, restless legs. She did not take any medications prior to arrival. Patient has severe anxiety with when laying flat. Opted to forego CT head and facial bones at this time. Bones do feel intact. No loss of consciousness or concern for intracranial abnormality. Will give Tylenol. Imaging protocol: XR of the facial bones, less than 3 views. COMPARISON: CT HEAD WO 10/24/2018 11:08 AM FINDINGS: Limitations: Difficult patient positioning. Sinuses: Well aerated. No opacification. Bones/joints: No nasal fracture. Hyperostosis frontalis interna. Other bones and joints are intact. Soft tissues: Unremarkable. IMPRESSION: Limited exam. No nasal fracture. Inform patient of x-ray results. Patient to be discharged home with transportation. Patient remained alert oriented hemodynamically stable no focal neuro deficits at this time. This text was generated using [employer] system, please disregard any oddities of phrase or misspellings. HPI General Mode of arrival: EMS. Date/Time Provider Initiated Documentation: 03/17/21 18:15. Limitations to Documentation: no limitations. Information obtained by: patient, RN notes reviewed and old records reviewed. HPI Narrative: 70-year-old female presents to the ER after a mechanical trip and fall on a rug. She has some abrasion noted to bridge of her nose, abrasion noted to the right lower lip with some swelling. Denies any loss of consciousness no neck pain no back pain. No other trauma noted on exam. She is alert and oriented. She has a past medical history of anxiety, anemia, essential tremor, carpal tunnel syndrome, COPD, diverticulitis, GERD, hypertension, hypercholesterol, restless legs. She did not take any medications prior to arrival. Related Data Home Medications Medication Instructions Recorded Confirmed pantoprazole 40 mg PO DAILY 02/20/13 03/17/21 albuterol sulfate [ProAir HFA] 1 puff INHALATION Q4H PRN inhaler 09/22/16 03/17/21 glyburide-metformin 500 tab-cap PO BID tab-cap 09/22/16 03/17/21 calcium carbonate-vitamin D3 1 ea PO BID 10/10/17 03/17/21 simvastatin 40 mg PO HS 10/10/17 03/17/21 propranolol 20 mg tablet 40 mg PO BID 11/08/18 03/17/21 magnesium oxide 400 mg PO DAILY 07/23/19 03/17/21 docusate sodium [Colace] 100 mg PO BID #100 cap 04/06/20 03/17/21 pregabalin 50 mg capsule 50 mg PO QHS #90 cap 09/15/20 03/17/21 lactulose 10 gram/15 mL oral 15 ml PO DAILY 10/18/20 03/17/21 solution quetiapine 100 mg tablet 150 mg PO HS tab 10/18/20 03/17/21 Stiolto Respimat 2 puff INHALATION DAILY 11/04/20 03/17/21 losartan 50 mg PO DAILY 11/04/20 03/17/21 Previous Rx's Medication Instructions Recorded docusate sodium [Colace] 100 mg PO BID #100 cap 04/06/20 pregabalin 50 mg capsule 50 mg PO QHS #90 cap 09/15/20 Allergies Allergy/AdvReac Type Severity Reaction Status Date / Time thiopental sodium Allergy Skin Rash Unverified 03/17/21 17:54 [From Pentothal] General Stated Complaint: Trauma LYNNETTE: 3 Review of Systems All systems reviewed & are unremarkable except as noted in HPI and below ENT Ears, Nose, Mouth, and Throat: Denies neck pain Musculoskeletal Musculoskeletal: Denies neck pain FORMERLY [facility] Medical History Anemia Anxiety Benign essential tremor Carpal tunnel syndrome Chronic low back pain Colonoscopy planned Constipation COPD (chronic obstructive pulmonary disease) Diabetes mellitus Diverticulitis of large intestine Diverticulosis Eczema Financial difficulties GERD (gastroesophageal reflux disease) Hair loss HTN (hypertension) Hypercholesterolemia Learning disability Lives alone with help available NO DPOA yet; ? state guardian? Palliative care patient Restless legs takes Premapaxil Right anterior knee pain Sleep disorder Social isolation Vertigo Surgical History bladder suspension for incontinence Abdominal hysterectomy (~1979) for heavy bleeding. Arthroplasty of knee L knee Dr Fuentes Cholecystectomy laparoscopic 03/2011 Extraction of cataract in [place] History of colonoscopy (~07/24/19) Oophrectomy, Both (04/09/13) laparotomy. aoc and kk. Family History Sister Heart disease Son Parent-child estrangement nec Under care of skilled nursing service life sentence for murder Daughter Parent-child estrangement nec Substance abuse Social History Smoking/Tobacco Use Status: Former Tobacco Use tobacco type: cigarettes Tobacco: How many years used: 40 Smoking risk assessment performed?: Yes Alcohol Intake: former Drug use: Never Substance use type: does not use Caregiver/Support person: No Household members: none Housing: apartment Number of Children: 0 Communication Needs: Cannot Read Education Level: middle school Details: finished 6th grade only Do you need help understanding health information?: Always current occupation: always disabled; worked as [employer] for 5 years in her late teens, early 20s Pets and animals: No What is your relationship status?: How often do you talk on the phone with friends or family?: never How often do you get together with friends or relatives?: never Panel score (0-1 are the most socially isolated patients): 0 What type of physical activity do you participate in: walking and irregular exercise Duration: < 15 minutes/day Frequency: 1-2 times per week Special pankaj needs: No Agree to transfusion: Yes Seatbelt use: always Drive intox or ride w/intox 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 Estranged from both her children, no family, no DPOA. Daughter with SA; her children taken from her. Son incarcerated for life. Exam Narrative Exam Narrative: General: Well Developed, Awake and Alert, conversant. Skin: Warm and Dry HEENT: Head: No palpable deformities, Normocephalic Eyes: Pupils PERRLA, EOM's intact. No periorbital eccymosis or step off Ears: Canal patent. Tympanic membranes are clear . No rocha's sign, no hemptympanum. Nose/Face: Superficial contusion and abrasion to the bridge of nose, facial bones nontender to palpation and stable with manipulation. Mouth/Throat: Contusion and swelling noted to right lower lip. Bleeding is controlled no laceration. Teeth and mandible are intact. Neck: No midline tenderness, no step off, no deformity to palpation of C-spine. Trachea midline. Chest: No surface trauma. Nontender without crepitus or deformity. Lungs clear to ausculatation bilaterally. Heart: RRR, no rubs, murmurs or gallop. Abdomen: No abrasions, ecchymosis, or surface trauma. Nondistended. Nontender to palpation no guarding, rebound, or rigidity. Pelvis: Nontender to palpation and stable to compression. Femoral pulses strong and equal Extremities: no surface trauma. Sensation intact. Peripheral pulses intact and equal. Moves all 4 extremities without difficulty. Neuro: ANO x4, GCS 15, cranial nerves II through XII intact. Motor and sensory exam nonfocal. Reflexes are symmetric. Course Vital Signs Vital signs: Vital Signs Temperature 36.9 C 03/17/21 17:50 Pulse 96 H 03/17/21 17:50 Respiratory Rate 20 03/17/21 17:50 Blood Pressure 127/106 H 03/17/21 17:50 Pulse Oximetry 97 03/17/21 17:50 Temperature 36.9 C 03/17/21 17:50 Temperature Source Skin 03/17/21 17:50 Pulse 96 H 03/17/21 17:50 Respiratory Rate 20 03/17/21 17:50 Blood Pressure 127/106 H 03/17/21 17:50 Blood Pressure Position Sitting 03/17/21 17:50 Pulse Oximetry 97 03/17/21 17:50 Oxygen Delivery Method Room Air 03/17/21 17:50 Oxygen Flow Rate 0 03/17/21 17:50 Pain Level 5 03/17/21 17:50
[2021-03-17] MEDS: Acetaminophen 325 MG TAB PO (18:20)
--- NOTE | 2021-03-17 18:45 | DI.RAD_ITS ---
Exam(s) XR FACIAL BONES LIMITED EXAM: XR FACIAL BONES LIMITED CLINICAL HISTORY: R/O nasal fracture. TECHNIQUE: 2D digital imaging was performed. COMPARISON: No exams were available for comparison FINDINGS: Examination limited due to patient positioning. BONES: No evidence of fracture. SOFT TISSUES: Unremarkable. IMPRESSION: No evidence of a nasal bone fracture. DATA REPOSITORY: RADIATION DOSE DELIVERED:
--- NOTE | 2021-03-17 19:15 | DI.VRAD_ITS ---
PROCEDURE INFORMATION: Exam: XR Facial Bones, Less Than 3 Views Exam date and time: 03/17/2021 6:38 PM Age: 70 years old Clinical indication: Injury or trauma; Blunt trauma (contusions or hematomas); Injury details: Fall/hit nose. PT unable to hold still - best images possible TECHNIQUE: Imaging protocol: XR of the facial bones, less than 3 views. COMPARISON: CT HEAD WO 10/24/2018 11:08 AM FINDINGS: Limitations: Difficult patient positioning. Sinuses: Well aerated. No opacification. Bones/joints: No nasal fracture. Hyperostosis frontalis interna. Other bones and joints are intact. Soft tissues: Unremarkable. IMPRESSION: Limited exam. No nasal fracture. Dictated and Authenticated by: Ryan Bronson MD. Ordering:ANGELITA Wilson MD
[2021-03-17 19:37] VITALS: BP 168/99; PULSE 95; RESP 18; TEMP 36.5; O2SAT 96
== END 2021-03-17 20:08 | disposition home or self-care (01) ==
LOC: ER 19:34
PROVIDERS: Emergency Provider Registered Nurse Emergency; PCP Nurse Practitioner Family
DX: S09.8XXA Other specified injuries of head, initial encounter (principal); W01.0XXA Fall on same level from slipping, tripping and stumbling without subsequent striking against object, initial encounter
CPT/HCPCS: 99283; 70140

== ENCOUNTER 2021-04-21 15:14 | Emergency (ER) | payer MEDICARE, MEDICAID, SELFPAY ==
[2021-04-21] VITALS (38 sets, daily range): BP systolic 96–174; BP diastolic 51–133; PULSE 68–120; RESP 13–26; TEMP 36.5; O2SAT 94–100
--- NOTE | 2021-04-21 15:00 | RT.EKG_ITS ---
APPROVED REPORT Exam: Resting ECG Reason for Exam: shortness of breath Patient Location: E HR:72 bpm ECG Measurements Heart Rate 72 AXIS MA 199 P 49 QRSd 78 QRS -4 QT 397 T 72 QTc 434 Conclusion Sinus rhythm...normal P axis, V-rate 60- 99 Low voltage, precordial leads...precordial leads <1.0mV
--- NOTE | 2021-04-21 15:41 | W.ED.GENAD ---
Discharge Plan Disposition Patient Disposition: HOME Condition: Stable Discharge Details Clinical Impression: COPD (chronic obstructive pulmonary disease), Shortness of breath Primary Care Provider: Sebastián Stephens ED Provider: Aj Truong Home Meds and New Rx's Prescriptions: New prednisone 20 mg tablet 60 mg PO DAILY 4 Days Qty: 12 RF: 0 levofloxacin 750 mg tablet 750 mg PO DAILY Qty: 5 RF: 0 Continued lactulose 10 gram/15 mL solution 15 ml PO DAILY RF: 0 quetiapine 100 mg tablet 150 mg PO HS RF: 0 propranolol 20 mg tablet 40 mg PO BID RF: 0 pregabalin 50 mg capsule 50 mg PO QHS Qty: 90 RF: 0 glyburide-metformin 1 EACH tablet 500 tab-cap PO BID RF: 0 albuterol sulfate [ProAir HFA] 8.5 GM HFA aerosol inhaler 1 puff Inhalation Q4H PRN RF: 0 pantoprazole 40 MG tablet,delayed release (DR/EC) 40 mg PO DAILY RF: 0 docusate sodium [Colace] 100 mg capsule 100 mg PO BID Qty: 100 RF: 0 simvastatin 40 MG tablet 40 mg PO HS RF: 0 calcium carbonate-vitamin D3 1 EACH tablet 1 ea PO BID RF: 0 magnesium oxide 400 mg magnesium Capsule 400 mg PO DAILY RF: 0 losartan 50 mg tablet 50 mg PO DAILY RF: 0 Stiolto Respimat 2.5-2.5 mcg/actuation mist 2 puff INHALATION DAILY RF: 0 Discharge Instructions Instructions: COPD (Chronic Obstructive Pulmonary Disease) (ED) Additional Instructions: your blood work and cat scan did not show any concerning findings your symptoms are likely due to your underlying copd follow up with your primary care provider within a week return to the emergency department if you feel more ill, have severe worsening shortness of breath or fevers Medical Decision Making 70 yo female with hx of copd, htn, hld, who comes in with chief complaint of I think I have pneumonia. She states she started to have a cough and dyspnea starting yesterday. Denies fevers, chest pain/pressure, abdominal pain. She states she is vaccinated for covid and has no known exposure. She denies headache or neck stiffness. She was given a duoneb with ems and states she does feel better now. She is in no distress on exam speaking easily without evidence of respiratory distress. She has no jvd, no murmurs, mild apical wheezing bilaterally no leg swelling or calf tenderness. Her symptoms seems most consistent with copd exacerbation vs pneumonia but given her dyspnea as well concern for possible PE. Will obtain labs and cta to further evaluate and give another duoneb and solumedrol. No chest pain or pressure so doubt acs at this time and her symptoms seem most consistent with copd vs pneumonia pt's labs unremarkable, remains stable and feels better after steroids and nebs. CTA shows no PE, no obvious pneumonia, has new mild central peribronchial thickening could reflect bronchitis but can't exclude pulmonary edema associated with chf but clinically has no evidence of chf and negative probnp so doubt chf. Delta troponin pending, will likely treat as copd exacerbation with oral antibiotics if delta troponin negative. pt asymptomatic with stable vitals and delta troponin unremarkable. Discussed with her and given her reassuring workup and stable vitals she is stable for outpatient management. Will start levofloxacin given increased cough from baseline. Will have her f/u with pcp and return precautions given Differential Diagnosis Differential Diagnosis: pneumonia, copd, pe, covid Medical Records Medical records reviewed: Yes I reviewed the patient's medical records. Imaging Data Radiologic Study: Attestation: I personally reviewed and interpreted this imaging study as follows: Imaging: CT Scan Radiologist's impression: IMPRESSION: 1. No pulmonary embolism identified. 2. Borderline cardiomegaly, with increase in heart size since prior study. 3. New mild central peribronchial thickening, could reflect bronchitis but cannot exclude mild interstitial pulmonary edema associated with CHF. Recommend clinical correlation. 4. Increased mild airspace opacity within the posterolateral left lung base, in a configuration suggesting atelectasis. 5. 1.8 x 1.7 cm cystic left renal lesion containing a dependent calcification, suggestive of a calyceal diverticulum Lab Data Lab results reviewed: Yes I reviewed the patient's lab results. ECG Data Attestation: I personally reviewed and interpreted this ECG (s) as follows: Prior ECG tracings: available for review Interpretation: sinus rhythm, rate of 72, no acute st t wave ischemic findings HPI General Mode of arrival: EMS. Date/Time Provider Initiated Documentation: 04/21/21 15:17. Limitations to Documentation: no limitations. Information obtained by: patient. History of Present Illness 70 year old F presents to the emergency department with the chief complaint of I think I have pneumonia, Patient reports no radiation. Patient started experiencing this day(s) (1) and it has been constant. No relieving factors improve symptom(s), No exacerbating factors reported . Patient notes cough and shortness of breath; denies fever/chills. Patient did receive the following treatments prior to arrival, none Related Data Home Medications Medication Instructions Recorded Confirmed pantoprazole 40 mg PO DAILY 02/20/13 04/21/21 albuterol sulfate [ProAir HFA] 1 puff INHALATION Q4H PRN inhaler 09/22/16 04/21/21 glyburide-metformin 500 tab-cap PO BID tab-cap 09/22/16 04/21/21 calcium carbonate-vitamin D3 1 ea PO BID 10/10/17 04/21/21 simvastatin 40 mg PO HS 10/10/17 04/21/21 propranolol 20 mg tablet 40 mg PO BID 11/08/18 04/21/21 magnesium oxide 400 mg PO DAILY 07/23/19 04/21/21 docusate sodium [Colace] 100 mg PO BID #100 cap 04/06/20 04/21/21 pregabalin 50 mg capsule 50 mg PO QHS #90 cap 09/15/20 04/21/21 lactulose 10 gram/15 mL oral 15 ml PO DAILY 10/18/20 04/21/21 solution quetiapine 100 mg tablet 150 mg PO HS tab 10/18/20 04/21/21 Stiolto Respimat 2 puff INHALATION DAILY 11/04/20 04/21/21 losartan 50 mg PO DAILY 11/04/20 04/21/21 levofloxacin 750 mg PO DAILY #5 tab 04/21/21 prednisone 60 mg PO DAILY 4 Days #12 tab 04/21/21 Previous Rx's Medication Instructions Recorded docusate sodium [Colace] 100 mg PO BID #100 cap 04/06/20 pregabalin 50 mg capsule 50 mg PO QHS #90 cap 09/15/20 levofloxacin 750 mg PO DAILY #5 tab 04/21/21 prednisone 60 mg PO DAILY 4 Days #12 tab 04/21/21 Allergies Allergy/AdvReac Type Severity Reaction Status Date / Time thiopental sodium Allergy Skin Rash Unverified 04/21/21 15:35 [From Pentothal] General Stated Complaint: SOB LYNNETTE: 3 Review of Systems All systems reviewed & are unremarkable except as noted in HPI and below Constitutional Constitutional: Denies chills, Denies fever(s) and Denies weakness Cardiovascular Cardiovascular: Denies chest pain Gastrointestinal Gastrointestinal: Denies abdominal pain, Denies nausea and Denies vomiting Musculoskeletal Musculoskeletal: Denies joint swelling Neurologic Neurologic: Denies weakness Psychiatric Psychiatric: Denies depression [facility] Medical History Anemia Anxiety Benign essential tremor Carpal tunnel syndrome Chronic low back pain Colonoscopy planned Constipation COPD (chronic obstructive pulmonary disease) Diabetes mellitus Diverticulitis of large intestine Diverticulosis Eczema Financial difficulties GERD (gastroesophageal reflux disease) Hair loss HTN (hypertension) Hypercholesterolemia Learning disability Lives alone with help available NO DPOA yet; ? state guardian? Palliative care patient Restless legs takes Premapaxil Right anterior knee pain Sleep disorder Social isolation Vertigo Surgical History bladder suspension for incontinence Abdominal hysterectomy (~1979) for heavy bleeding. Arthroplasty of knee L knee Dr Fuentes Cholecystectomy laparoscopic 03/2011 Extraction of cataract in [place] History of colonoscopy (~07/24/19) Oophrectomy, Both (04/09/13) laparotomy. aoc and kk. Family History Sister Heart disease Son Parent-child estrangement nec Under care of fdc service life sentence for murder Daughter Parent-child estrangement nec Substance abuse Social History Smoking/Tobacco Use Status: Former Tobacco Use tobacco type: cigarettes Tobacco: How many years used: 40 Smoking risk assessment performed?: Yes Alcohol Intake: former Drug use: Never Substance use type: does not use Caregiver/Support person: No Household members: none Housing: apartment Number of Children: 0 Communication Needs: Cannot Read Education Level: middle school Details: finished 6th grade only Do you need help understanding health information?: Always current occupation: always disabled; worked as [employer] for 5 years in her late teens, early 20s Pets and animals: No What is your relationship status?: How often do you talk on the phone with friends or family?: never How often do you get together with friends or relatives?: never Panel score (0-1 are the most socially isolated patients): 0 What type of physical activity do you participate in: walking and irregular exercise Duration: < 15 minutes/day Frequency: 1-2 times per week Special pankaj needs: No Agree to transfusion: Yes Seatbelt use: always Drive intox or ride w/intox driver/guide: No Water heater temp set <120 deg: Yes Working smoke detector in home: Yes Firearms in home: No Do you feel safe at home: Yes Do you feel safe in your relationship?: Yes Additional Social history: she was very briefly in her teens was with Praneeth Cee for 15 years; he in 2016, she thinks, from colon cancer, bled out. Estranged from both her children, no family, no DPOA. Daughter with SA; her children taken from her. Son incarcerated for life. Exam Const General: no acute distress Orientation: alert HENMT Head: normal to inspection Ears: external ears normal General nose exam: external nose normal Mouth: moist mucous membranes Eyes General: appearance normal, both eyes and all related structures Neck Neck: normal visual inspection Resp Effort & Inspection: normal respiratory effort and able to speak in complete sentences Cardio Rate: regular rate Skin General skin exam: no rashes or lesions noted Neuro General: patient alert and patient oriented x3 Extrem General: normal to inspection Psych Mental Status: mental status grossly normal Course Vital Signs Vital signs: Vital Signs Temperature 36.5 C 04/21/21 15:18 Pulse 77 04/21/21 15:18 Respiratory Rate 77 H 04/21/21 15:18 Pulse Oximetry 97 04/21/21 15:18 Temperature 36.5 C 04/21/21 15:18 Temperature Source Skin 04/21/21 15:18 Pulse 77 04/21/21 15:18 Respiratory Rate 77 H 04/21/21 15:18 Respiratory Effort Non-Labored 04/21/21 15:18 Blood Pressure Position Supine 04/21/21 15:18 Pulse Oximetry 97 04/21/21 15:18 Oxygen Delivery Method Room Air 04/21/21 15:18 Oxygen Flow Rate 0 04/21/21 15:18 Pain Level 0 04/21/21 15:18 Lab/Test Results Lab/Test Results: 04/21/21 15:12 Blood Blood Culture - Pending 04/21/21 15:12 Blood Blood Culture - Pending
[2021-04-21 15:42] LABS: Source Nasal/Nares
[2021-04-21] MEDS: methylPREDNISolone SUCC 125 MG VIAL IVP (15:50)
[2021-04-21] MEDS: Albuterol/Ipratropium 3 ML UPD VIAL UPD (15:50)
[2021-04-21 15:52] LABS: Abs Immature Grans 0.06 10^3/uL (0.0-0.06); Absolute Monocyte Count 0.92 10^3/uL (0.1-0.8); Absolute Neutrophil Count 7.86 10^3/uL (1.2-6.7); Basophils % 0.8; Eosinophils % 3.2; HCT 32.8 % (36.0-46.0); HGB 9.9 g/dL (11.2-15.7); Immature Grans % 0.5; Lymphocytes % 26.1; MCH 22.3 pg (27.0-33.0); MCHC 30.2 % (32.0-36.0); MCV 73.9 fL (80-95); MPV 9.4 fL (8.0-11.0); Monocytes % 7.3; Neutrophils % 62.1; Nucleated RBC 0 %; Platelet Count 298 10^3/uL (130-400); RBC 4.44 10^6/uL (3.93-5.22); RDW 16.1 % (11.7-14.6); WBC 12.65 10^3/uL (4.4-10.8)
[2021-04-21 15:55] LABS: BE (Venous) 2 mmol/L (-2-3); HCO3 (Venous) 27 mmol/L (23-28); O2 Sat (Venous) 77 %; TCO2 (Venous) 25 mmol/L (24-29); pCO2 (Venous) 43 mmHg (41-51); pO2 (Venous) 41 mmHg
[2021-04-21 16:22] LABS: ALT 32 U/L (14-59); AST 21 U/L (15-37); Albumin 3.6 g/dL (3.4-5.0); Alkaline Phosphatase 89 U/L (46-116); Anion Gap 8.4 mmol/L (3-11); BUN 14 mg/dL (7-18); Bilirubin, Total 0.4 mg/dL (0.2-1.0); CO2 27.6 mmol/L (21.0-32.0); CREATININE 0.9 mg/dL (0.55-1.02); Calcium 8.7 mg/dL (8.5-10.1); Chloride 106 mmol/L (98-107); Glucose 115 mg/dL (74-106); Magnesium 1.8 mg/dL (1.8-2.4); NT-proBNP 68 pg/mL (<300); Potassium 3.9 mmol/L (3.5-5.1); Sodium 142 mmol/L (136-145); TSH (W/Ref FT4) 1.86 uIU/mL (0.36-3.74); Total Protein 7.1 g/dL (6.4-8.2)
[2021-04-21 16:23] LABS: Troponin I < 0.05 ng/mL (<0.06)
[2021-04-21 16:40] LABS: COVID-19 PCR Negative (Negative)
[2021-04-21 17:29] LABS: Bilirubin Negative (Negative); Blood Negative (Negative); Clarity Clear (Clear); Glucose Negative (Negative); Ketones Negative (Negative); Leukocyte Esterase Trace (Negative); Nitrite Negative (Negative); Specific Gravity 1.015 (1.005-1.025); Urobilinogen 0.2 EU/dL (Up TO 0.2)
[2021-04-21 17:37] LABS: Bacteria Negative HPF (Negative); C & S Indicated? Yes; Casts Negative LPF (Negative); Crystals Negative HPF (Negative); Epithelial Cells Negative HPF (Negative); Mucus Negative (Negative); Other Cells Negative (Negative); RBC Negative HPF (0-2)
[2021-04-21 17:38] LABS: Diff Comment RBC Morph Reviewed; Hypochromasia 1+; Microcytosis 2+; Poikilocytes 2+
--- NOTE | 2021-04-21 17:38 | DI.CT_ITS ---
Exam(s) CT CHEST PE CTA EXAM: CT CHEST PE CTA CLINICAL HISTORY: shortness of breath. TECHNIQUE: Imaging Protocol: Axial CT angiography was performed with multi-slice acquisition and mu lti-planar and/or 3D reconstructions. CONTRAST MATERIAL: Intravenous: Omnipaque 350 Contrast volume:74 mL COMPARISON: CT CT CHEST PE CTA from 10/20/[address] ABDOMEN PELVIS W from 07/01/2019 FINDINGS: Tracheobronchial tree: Patent where visualized. Pulmonary parenchyma: No consolidation or dominant measurable mass. No architectural distortion. Ther e is atelectasis in the left lung base. Pulmonary Arteries: No evidence of filling defect to suggest pulmonary emboli. Mediastinum and Shannon: No dominant adenopathy or fluid collection. Visualized thyroid gland: Unremarkable. Pleura: No effusion or pneumothorax. Heart: The heart is not dilated. No coronary artery calcifications are seen. No pericardial effusion. Aorta: Thoracic aorta non-dilated. No evidence of dissection. Upper abdomen: Status post cholecystectomy. Stable appearance of the left kidney. Soft tissues: Unremarkable. Bones: Within normal limits for the patient's age. IMPRESSION: 1. No evidence of pulmonary embolism, thoracic aortic dissection or aneurysm. 2. Left lower lobe atelectasis. RADIATION DOSE DELIVERED: 500.45mGy.cm Total DLP DATA REPOSITORY: All CT scans at this facility are submitted to the National Radiology Data Registry (NRDR) Dose Index Registry (DIR) with the [employer] (A[employer]). RADIATION OPTIMIZATION: All CT scans at this facility use at least one of these dose optimization te chniques: automated exposure control; mA and/or kV adjustment per patient size (includes targeted exa ms where dose is matched to clinical indication); or iterative reconstruction.
[2021-04-21] MEDS: Omnipaque 350 MG/ML 100 ML BTL IJ (17:48)
[2021-04-21] MEDS: Normal Saline - Diluent 50 ML VIAL IV (17:50)
--- NOTE | 2021-04-21 18:31 | DI.VRAD_ITS ---
PROCEDURE INFORMATION: Exam: CTA Chest With Contrast Exam date and time: 04/21/2021 4:39 PM Age: 70 years old Clinical indication: Shortness of breath TECHNIQUE: Imaging protocol: Computed tomographic angiography of the chest with contrast. 3D rendering (Not supervised by radiologist): MIP and/or 3D reconstructed images were created by the technologist. Radiation optimization: All CT scans at this facility use at least one of these dose optimization techniques: automated exposure control; mA and/or kV adjustment per patient size (includes targeted exams where dose is matched to clinical indication); or iterative reconstruction. Contrast material: OMNI-PAQUE 350; Contrast volume: 74 ml; Contrast route: INTRAVENOUS (IV); COMPARISON: CT CHEST PE CTA 10/20/2018 1:09 PM FINDINGS: Pulmonary arteries: No filling defects within the pulmonary arteries are identified to suggest pulmonary embolism. Aorta: Unremarkable. No aortic aneurysm. No aortic dissection. Lungs: There is new mild central peribronchial thickening. The central airways are patent. There is no bronchiectasis or bronchiolectasis. There is increased mild airspace opacity within the posterolateral base of the left lower lobe and lingular segment of the left upper lobe, which has a configuration suggestive of atelectasis. Pleural spaces: There are no pleural effusions present. There is no evidence of pneumothorax. Heart: Heart size is borderline enlarged and appears increased in size since prior study. There is a very small pericardial effusion which is increased in size since prior study. Lymph nodes: Again noted are multiple prominent subcentimeter mediastinal lymph nodes which are mildly increased in size since prior study, but are likely reactive. Liver: There is a stable tiny subcentimeter focus of enhancement within the right hepatic lobe, consistent with a tiny hemangioma. Gallbladder and bile ducts: There has been a cholecystectomy. Pancreas: The pancreas appears moderately atrophic, but is only partially imaged. Adrenal glands: There is diffuse bilateral nonspecific mild adrenal enlargement, suggesting hyperplasia. Kidneys and ureters: There is a 1.8 x 1.7 cm cystic left renal lesion on image 571, series 5 with a dependent 3 mm calcification, which is suggestive of a calyceal diverticulum. Bones/joints: There is mild anterior wedging of a few adjacent mid-lower thoracic vertebra which appears chronic. There is multilevel [id number] spondylosis of the mid and lower thoracic spine. No acute fractures are. Soft tissues: Unremarkable. IMPRESSION: 1. No pulmonary embolism identified. 2. Borderline cardiomegaly, with increase in heart size since prior study. 3. New mild central peribronchial thickening, could reflect bronchitis but cannot exclude mild interstitial pulmonary edema associated with CHF. Recommend clinical correlation. 4. Increased mild airspace opacity within the posterolateral left lung base, in a configuration suggesting atelectasis. 5. 1.8 x 1.7 cm cystic left renal lesion containing a dependent calcification, suggestive of a calyceal diverticulum. Dictated and Authenticated by: Rojas Ley MD. Ordering:FERNANDO Rocha MD
[2021-04-21 18:49] LABS: Troponin I < 0.05 ng/mL (<0.06)
[2021-04-21] MEDS: levoFLOXacin 500 MG, levoFLOXacin 250 MG 750 MG PO (19:00)
== END 2021-04-21 19:12 | disposition home or self-care (01) ==
PROVIDERS: Emergency Provider Emergency Medicine; PCP Nurse Practitioner Family
DX: J44.9 Chronic obstructive pulmonary disease, unspecified (principal); R06.02 Shortness of breath; I10 Essential (primary) hypertension; R68.89 Other general symptoms and signs
CPT/HCPCS: 36415; 71275; 80053; 82805; 87040; 87635; 93005; 94640; 96374; 99285; 81003; 81015; 83735; 83880; 84443; 84484; 85025; 87086; 93010; 99284; J2930; J3490; J7620

== ENCOUNTER 2021-05-05 12:19 | Emergency (ER) | payer MEDICARE, MEDICAID, SELFPAY ==
[2021-05-05] VITALS (50 sets, daily range): BP systolic 99–176; BP diastolic 48–107; PULSE 64–89; RESP 14–25; TEMP 36.4; O2SAT 95–99
--- NOTE | 2021-05-05 12:20 | ED.GENADUL_ITS ---
Discharge Plan Disposition Patient Disposition: HOME Condition: Stable Discharge Details Clinical Impression: COVID-19 Primary Care Provider: Sebastián Stephens ED Provider: Lynn Milian Home Meds and New Rx's Prescriptions: New ondansetron HCl [Zofran] 4 mg tablet 4 mg PO Q8H PRNQty: 5 RF: 0 benzonatate [Tessalon Perles] 100 mg capsule 100 mg PO BID PRNQty: 14 RF: 0 Continued lactulose 10 gram/15 mL solution 15 ml PO DAILY RF: 0 quetiapine 100 mg tablet 150 mg PO HS RF: 0 propranolol 20 mg tablet 40 mg PO BID RF: 0 pregabalin 50 mg capsule 50 mg PO QHS Qty: 90 RF: 0 glyburide-metformin 1 EACH tablet 500 tab-cap PO BID RF: 0 albuterol sulfate [ProAir HFA] 8.5 GM HFA aerosol inhaler 1 puff Inhalation Q4H PRN RF: 0 pantoprazole 40 MG tablet,delayed release (DR/EC) 40 mg PO DAILY RF: 0 docusate sodium [Colace] 100 mg capsule 100 mg PO BID Qty: 100 RF: 0 simvastatin 40 MG tablet 40 mg PO HS RF: 0 calcium carbonate-vitamin D3 1 EACH tablet 1 ea PO BID RF: 0 magnesium oxide 400 mg magnesium Capsule 400 mg PO DAILY RF: 0 losartan 50 mg tablet 50 mg PO DAILY RF: 0 Stiolto Respimat 2.5-2.5 mcg/actuation mist 2 puff INHALATION DAILY RF: 0 levofloxacin 750 mg tablet 750 mg PO DAILY Qty: 5 RF: 0 Discharge Instructions Instructions: Viral Syndrome (ED) Additional Instructions: covid 19 Positive and must isolate Please let your primary care physician know that you have a positive Covid test and will need reassessment You should isolate for the next 10 days as you are at risk for spreading infection Stay hydrated Tessalon Perles as needed for cough Check your pulse oximeter, we will supply you with one, if you feel short of breath, leave the Pulse oximeter on your hands for 2 to 3 minutes, if you are below 90%, you should be reassessed in the emergency room Take Zofran as needed for nausea Discharge Data Discharge Date/Time-TO BE ENTERED AT DEPARTURE: 05/05/21 18:26 Medical Decision Making Patient appears well, she is COVID-19 positive, her diagnostic are unchanged from prior, she is able to drink and is no longer nauseous She will give be given a pulse oximeter for home She is given monoclonal antibody secondary to age and comorbidities She was able to stand and ambulate without hypoxia, 97% oxygenation and she is fully vaccinated She feels comfortable discharge home at this time, she will be given a small amount of antiemetics for home She is instructed to return should her condition below 90%, she is aware that she must isolate Medical Records Medical records reviewed: Yes I reviewed the patient's medical records. Lab Data Lab results reviewed: Yes I reviewed the patient's lab results. HPI General Mode of arrival: EMS . Date/Time Provider Initiated Documentation: 05/05/21 12:20 . Limitations to Documentation: no limitations . Information obtained by: patient . HPI Narrative: This 70-year-old female presents with 2 days of cough and nausea. Initially we are told that she was positive for Covid, however after further investigation, she received her third booster only. She denies any fever or chills. She denies any chest pain or shortness of breath. She states that the cough is hacking. She states she feels as though she is getting around her house okay. She denies any fever or chills. She presents today predominantly secondary to nausea and persistent cough. She denies any known sick contacts. Denies abdominal pain. Related Data Home Medications Medication Instructions Recorded Confirmed pantoprazole 40 mg PO DAILY 02/20/13 05/05/21 albuterol sulfate [ProAir HFA] 1 puff INHALATION Q4H PRN inhaler 09/22/16 05/05/21 glyburide-metformin 500 tab-cap PO BID tab-cap 09/22/16 05/05/21 calcium carbonate-vitamin D3 1 ea PO BID 10/10/17 05/05/21 simvastatin 40 mg PO HS 10/10/17 05/05/21 propranolol 20 mg tablet 40 mg PO BID 11/08/18 05/05/21 magnesium oxide 400 mg PO DAILY 07/23/19 05/05/21 docusate sodium [Colace] 100 mg PO BID #100 cap 04/06/20 05/05/21 pregabalin 50 mg capsule 50 mg PO QHS #90 cap 09/15/20 05/05/21 lactulose 10 gram/15 mL oral 15 ml PO DAILY 10/18/20 05/05/21 solution quetiapine 100 mg tablet 150 mg PO HS tab 10/18/20 05/05/21 Stiolto Respimat 2 puff INHALATION DAILY 11/04/20 05/05/21 losartan 50 mg PO DAILY 11/04/20 05/05/21 levofloxacin 750 mg PO DAILY #5 tab 04/21/21 05/05/21 benzonatate [Tessalon Perles] 100 mg PO BID PRN #14 cap 05/05/21 ondansetron HCl [Zofran] 4 mg PO Q8H PRN #5 tab 05/05/21 Previous Rx's Medication Instructions Recorded docusate sodium [Colace] 100 mg PO BID #100 cap 04/06/20 pregabalin 50 mg capsule 50 mg PO QHS #90 cap 09/15/20 levofloxacin 750 mg PO DAILY #5 tab 04/21/21 benzonatate [Tessalon Perles] 100 mg PO BID PRN #14 cap 05/05/21 ondansetron HCl [Zofran] 4 mg PO Q8H PRN #5 tab 05/05/21 Allergies Allergy/AdvReac Type Severity Reaction Status Date / Time thiopental sodium Allergy Skin Rash Unverified 05/05/21 12:18 [From Pentothal] General Stated Complaint: GenMedical LYNNETTE: 3 Review of Systems All systems reviewed & are unremarkable except as noted in HPI and below PFSH Medical History Anemia Anxiety Benign essential tremor Carpal tunnel syndrome Chronic low back pain Colonoscopy planned Constipation COPD (chronic obstructive pulmonary disease) Diabetes mellitus Diverticulitis of large intestine Diverticulosis Eczema Financial difficulties GERD (gastroesophageal reflux disease) Hair loss HTN (hypertension) Hypercholesterolemia Learning disability Lives alone with help available NO DPOA yet; ? state guardian? Palliative care patient Restless legs takes Premapaxil Right anterior knee pain Sleep disorder Social isolation Vertigo Surgical History bladder suspension for incontinence Abdominal hysterectomy (~1979) for heavy bleeding. Arthroplasty of knee L knee Dr Fuentes Cholecystectomy laparoscopic 03/2011 Extraction of cataract in [place] History of colonoscopy (~07/24/19) Oophrectomy, Both (04/09/13) laparotomy. aoc and kk. Family History Sister Heart disease Son Parent-child estrangement nec Under care of senior care service life sentence for murder Daughter Parent-child estrangement nec Substance abuse Social History Smoking/Tobacco Use Status: Former Tobacco Use tobacco type: cigarettes Tobacco: How many years used: 40 Smoking risk assessment performed?: Yes Alcohol Intake: former Drug use: Never Substance use type: does not use Caregiver/Support person: No Household members: none Housing: apartment Number of Children: 0 Communication Needs: Cannot Read Education Level: middle school Details: finished 6th grade only Do you need help understanding health information?: Always current occupation: always disabled; worked as [employer] for 5 years in her late teens, early 20s Pets and animals: No What is your relationship status?: How often do you talk on the phone with friends or family?: never How often do you get together with friends or relatives?: never Panel score (0-1 are the most socially isolated patients): 0 What type of physical activity do you participate in: walking and irregular exercise Duration: < 15 minutes/day Frequency: 1-2 times per week Special pankaj needs: No Agree to transfusion: Yes Seatbelt use: always Drive intox or ride w/intox pile driver: No Water heater temp set <120 deg: Yes Working smoke detector in home: Yes Firearms in home: No Do you feel safe at home: Yes Do you feel safe in your relationship?: Yes Additional Social history: she was very briefly in her teens was with Praneeth Cee for 15 years; he in 2016, she thinks, from colon cancer, bled out. Estranged from both her children, no family, no DPOA. Daughter with SA; her children taken from her. Son incarcerated for life. Exam Const General: cooperative, no acute distress and well developed HENMT Other: Moist mucous membranes Eyes Pupils: PERRL Resp Effort & Inspection: normal respiratory effort Auscultation: clear to auscultation bilaterally Cardio Rate: regular rate Rhythm: regular rhythm GI Other: No abdominal tenderness Skin General skin exam: no rashes or lesions noted Neuro General: patient alert and patient oriented x3 Extrem Other: No calf swelling or tenderness appreciated, distal pulses intact Course Vital Signs Vital signs: Vital Signs Temperature 36.4 C L 05/05/21 12:14 Pulse 78 05/05/21 12:14 Respiratory Rate 16 05/05/21 12:14 Blood Pressure 135/48 L 05/05/21 12:14 Pulse Oximetry 98 05/05/21 12:14 Temperature 36.4 C L 05/05/21 12:14 Temperature Source Skin 05/05/21 12:14 Pulse 78 05/05/21 12:14 Respiratory Rate 16 05/05/21 12:14 Blood Pressure 135/48 L 05/05/21 12:14 Pulse Oximetry 98 05/05/21 12:14 Oxygen Delivery Method Room Air 05/05/21 12:14 Oxygen Flow Rate 0 05/05/21 12:14 Pain Level 5 05/05/21 12:14
--- NOTE | 2021-05-05 12:30 | RT.EKG_ITS ---
APPROVED REPORT Exam: Resting ECG Reason for Exam: nausea Patient Location: E HR:75 bpm ECG Measurements Heart Rate 75 AXIS VT 181 P 26 QRSd 75 QRS 1 QT 424 T 45 QTc 474 Conclusion Sinus rhythm...normal P axis, V-rate 60- 99 Low voltage, precordial leads...precordial leads <1.0mV. Sinus. No STEMI. I have reviewed and interpreted ECG and agree with software generated interpretation.
--- NOTE | 2021-05-05 12:30 | DI.RAD_ITS ---
Exam(s) XR PORTABLE CHEST AP EXAM: XR PORTABLE CHEST AP CLINICAL HISTORY: cough, recent covid. TECHNIQUE: 2D digital imaging was performed. COMPARISON: CR,XR XR CHEST 2V PA LATERAL from 11/04/2020 FINDINGS: Heart size is upper normal. The mediastinum is not widened. Lungs are clear. No infiltrates nor obvious pleural effusions. IMPRESSION: No acute pulmonary findings on this single AP portable view of the chest. DATA REPOSITORY: RADIATION DOSE DELIVERED: All CT scans at this facility use at least one of these dose optimization techniques: automated exposure control; mA and/or kV adjustment per patient size (includes targeted e xams where dose is matched to clinical indication); or iterative reconstruction.
[2021-05-05] MEDS: Benzonatate 100 MG CAP PO (13:02)
[2021-05-05] MEDS: Metoclopramide 10 MG/2 ML VIAL 5 MG IVP (13:02)
[2021-05-05] MEDS: Normal Saline 1,000 ML 1000 ML IV (13:07)
[2021-05-05 13:10] LABS: Abs Immature Grans 0.04 10^3/uL (0.0-0.06); Absolute Basophil Count 0.04 10^3/uL (0.0-0.2); Absolute Eosinophil Count 0.08 10^3/uL (0.0-0.7); Absolute Lymphocyte Count 1.11 10^3/uL (1.2-3.4); Absolute Neutrophil Count 9.29 10^3/uL (1.2-6.7); Basophils % 0.4; Eosinophils % 0.7; HCT 31.9 % (36.0-46.0); HGB 9.8 g/dL (11.2-15.7); Immature Grans % 0.4; Lymphocytes % 10.1; MCH 22.5 pg (27.0-33.0); MCHC 30.7 % (32.0-36.0); MCV 73.3 fL (80-95); MPV 9.3 fL (8.0-11.0); Monocytes % 3.6; Neutrophils % 84.8; Nucleated RBC 0 %; Platelet Count 213 10^3/uL (130-400); RBC 4.35 10^6/uL (3.93-5.22); RDW 16.8 % (11.7-14.6); RDW-SD 44.2 fL; WBC 10.96 10^3/uL (4.4-10.8)
[2021-05-05 13:12] LABS: Absolute Monocyte Count 0.39 10^3/uL (0.1-0.8)
[2021-05-05 13:24] LABS: ALT 31 U/L (14-59); AST 26 U/L (15-37); Albumin 3.4 g/dL (3.4-5.0); Alkaline Phosphatase 81 U/L (46-116); Anion Gap 8.2 mmol/L (3-11); BUN 14 mg/dL (7-18); Bilirubin, Total 0.4 mg/dL (0.2-1.0); CO2 26.8 mmol/L (21.0-32.0); Calcium 8.5 mg/dL (8.5-10.1); Chloride 104 mmol/L (98-107); Estimated GFR 54.66 (mL/min/1.73m2); Glucose 160 mg/dL (74-106); Magnesium 1.9 mg/dL (1.8-2.4); Potassium 4.2 mmol/L (3.5-5.1); Sodium 139 mmol/L (136-145); Total Protein 6.9 g/dL (6.4-8.2); Troponin I < 0.05 ng/mL (<0.06)
[2021-05-05 13:42] LABS: Source Nasal/Nares
[2021-05-05 14:26] LABS: COVID-19 PCR POSITIVE (Negative)
== END 2021-05-05 18:26 | disposition home or self-care (01) ==
LOC: ER 15:46
PROVIDERS: Emergency Provider Physician Assistant; PCP Nurse Practitioner Family
DX: U07.1 COVID-19 (principal)
CPT/HCPCS: 36415; 80053; 85027; 87635; 93005; 96361; 96365; 96374; 99284; 71045; 83735; 84484; 85025; 93010; J2765

== ENCOUNTER 2021-05-29 11:20 | Emergency (ER) | payer MEDICARE, MEDICAID, SELFPAY ==
[2021-05-29] VITALS (9 sets, daily range): BP systolic 120; BP diastolic 87; PULSE 69–75; RESP 13–23; TEMP 36.9; O2SAT 97–99
--- NOTE | 2021-05-29 11:45 | DI.RAD_ITS ---
Exam(s) XR PORTABLE CHEST AP EXAM: XR PORTABLE CHEST AP CLINICAL HISTORY: persistent cough. TECHNIQUE: 2D digital imaging was performed. COMPARISON: CR XR PORTABLE CHEST AP from 05/05/2021 FINDINGS: Heart size is upper normal. The mediastinum is not widened. Lungs are clear. No infiltrates nor obvious pleural effusions. Chest leads in place IMPRESSION: No acute pulmonary findings on this single AP portable view of the chest. DATA REPOSITORY: RADIATION DOSE DELIVERED: All CT scans at this facility use at least one of these dose optimization techniques: automated exposure control; mA and/or kV adjustment per patient size (includes targeted e xams where dose is matched to clinical indication); or iterative reconstruction.
--- NOTE | 2021-05-29 11:57 | W.ED.GENAD ---
Discharge Plan Disposition Patient Disposition: HOME Condition: Improving Discharge Details Clinical Impression: Transient leg weakness Primary Care Provider: Sebastián Stephens ED Provider: Modesto Yanes Home Meds and New Rx's Prescriptions: Continued lactulose 10 gram/15 mL solution 15 ml PO DAILY RF: 0 quetiapine 100 mg tablet 150 mg PO HS RF: 0 propranolol 20 mg tablet 40 mg PO BID RF: 0 pregabalin 50 mg capsule 50 mg PO QHS Qty: 90 RF: 0 glyburide-metformin 1 EACH tablet 500 tab-cap PO BID RF: 0 albuterol sulfate [ProAir HFA] 8.5 GM HFA aerosol inhaler 1 puff Inhalation Q4H PRN RF: 0 pantoprazole 40 MG tablet,delayed release (DR/EC) 40 mg PO DAILY RF: 0 docusate sodium [Colace] 100 mg capsule 100 mg PO BID Qty: 100 RF: 0 ondansetron HCl [Zofran] 4 mg tablet 4 mg PO Q8H PRNQty: 5 RF: 0 benzonatate [Tessalon Perles] 100 mg capsule 100 mg PO BID PRNQty: 14 RF: 0 simvastatin 40 MG tablet 40 mg PO HS RF: 0 calcium carbonate-vitamin D3 1 EACH tablet 1 ea PO BID RF: 0 magnesium oxide 400 mg magnesium Capsule 400 mg PO DAILY RF: 0 losartan 50 mg tablet 50 mg PO DAILY RF: 0 Stiolto Respimat 2.5-2.5 mcg/actuation mist 2 puff INHALATION DAILY RF: 0 levofloxacin 750 mg tablet 750 mg PO DAILY Qty: 5 RF: 0 Discharge Instructions Additional Instructions: We will call you with the results of today's COVID-19 test. Your chest x-ray and laboratories are reassuring. Continue your routine medications and routine. Follow-up with Sebastián Stephens for routine care. Medical Decision Making 70-year-old female presents from home via EMS with 2 concerns. First is a persistent cough for 10 days, the other is leg weakness this morning. She is afebrile, pleasant and interactive. She was diagnosed with COVID-19 on May 05 of this year. Patient IV access established, given parenteral fluids, referred for laboratory testing, chest x-ray, urinalysis and SARS-CoV-2 screening. The patient is chronically anemic which is unchanged. Her laboratories are otherwise reassuring, urinalysis with squamous contamination. Chest x-ray unremarkable for acute process. Covid 19 test pending. After a melita thomas and small amount of fluids, patient felt improved, ambulatory on her own without assistance. She is stable and appropriate for discharge to home. HPI General Mode of arrival: EMS. Date/Time Provider Initiated Documentation: 05/29/21 12:16. Limitations to Documentation: no limitations. Information obtained by: patient and EMS. History of Present Illness 70 year old F presents to the emergency department with the chief complaint of Generalized weakness today, noted leg weakness this morning, Quality is described as dull, Patient started experiencing this hour(s) and it has been constant. No relieving factors improve symptom(s), No exacerbating factors reported . Patient notes cough and weakness; denies fever/chills, shortness of breath and syncope. Patient did receive the following treatments prior to arrival, none Related Data Home Medications Medication Instructions Recorded Confirmed pantoprazole 40 mg PO DAILY 02/20/13 05/29/21 albuterol sulfate [ProAir HFA] 1 puff INHALATION Q4H PRN inhaler 09/22/16 05/29/21 glyburide-metformin 500 tab-cap PO BID tab-cap 09/22/16 05/29/21 calcium carbonate-vitamin D3 1 ea PO BID 10/10/17 05/29/21 simvastatin 40 mg PO HS 10/10/17 05/29/21 propranolol 20 mg tablet 40 mg PO BID 11/08/18 05/29/21 magnesium oxide 400 mg PO DAILY 07/23/19 05/29/21 docusate sodium [Colace] 100 mg PO BID #100 cap 04/06/20 05/29/21 pregabalin 50 mg capsule 50 mg PO QHS #90 cap 09/15/20 05/29/21 lactulose 10 gram/15 mL oral 15 ml PO DAILY 10/18/20 05/29/21 solution quetiapine 100 mg tablet 150 mg PO HS tab 10/18/20 05/29/21 Stiolto Respimat 2 puff INHALATION DAILY 11/04/20 05/29/21 losartan 50 mg PO DAILY 11/04/20 05/29/21 levofloxacin 750 mg PO DAILY #5 tab 04/21/21 05/29/21 benzonatate [Tessalon Perles] 100 mg PO BID PRN #14 cap 05/05/21 05/29/21 ondansetron HCl [Zofran] 4 mg PO Q8H PRN #5 tab 05/05/21 05/29/21 Previous Rx's Medication Instructions Recorded docusate sodium [Colace] 100 mg PO BID #100 cap 04/06/20 pregabalin 50 mg capsule 50 mg PO QHS #90 cap 09/15/20 levofloxacin 750 mg PO DAILY #5 tab 04/21/21 benzonatate [Tessalon Perles] 100 mg PO BID PRN #14 cap 05/05/21 ondansetron HCl [Zofran] 4 mg PO Q8H PRN #5 tab 05/05/21 Allergies Allergy/AdvReac Type Severity Reaction Status Date / Time thiopental sodium Allergy Skin Rash Unverified 05/29/21 11:47 [From Pentothal] General Stated Complaint: GenMedical LYNNETTE: 3 Review of Systems Narrative: Denies fever or chills, no shortness of breath, no syncope or fall. Eating and drinking normally. Persistent cough for 10 days. 8 systems reviewed and otherwise negative [facility] Active Problem List Fall (Acute) CHI (closed head injury) (Acute) Shortness of breath (Acute) COVID-19 (Acute) Bronchospasm (Acute) Right anterior knee pain (Chronic) Atypical chest pain (Acute) Palliative care status (Chronic) Lives alone with help available (Chronic) Financial difficulties (Chronic) Hair loss (Acute) Constipation (Chronic) Encounter for screening colonoscopy (Acute) Social isolation (Chronic) Chronic low back pain (Acute) DNI (do not intubate) (Chronic) DNR (do not resuscitate) (Chronic) Goals of care, counseling/discussion (Acute) Palliative care patient (Chronic) Learning disability (Chronic) GERD (gastroesophageal reflux disease) (Chronic) Diverticulosis (Acute) Sleep disorder (Acute) Anxiety (Chronic) COPD (chronic obstructive pulmonary disease) (Chronic) Vertigo (Acute) Onychomycosis (Acute) Carpal tunnel syndrome (Acute) Leukocytosis (leucocytosis) (Acute) Anemia (Chronic) Hypomagnesemia (Acute) Eczema (Acute) Benign essential tremor (Acute) Diabetes mellitus (Chronic) Neoplasm of skin (Acute 12/29/13) Mixed stress and urge urinary incontinence (Acute 09/22/16) Hyperlipidemia (Acute 04/02/13) Urinary, incontinence, stress female (Acute 04/02/13) Essential hypertension (Acute 04/02/13) Depression (Acute 04/02/13) Cyst of ovary (Acute 03/12/13) Cerumen impaction (Acute 12/29/13) Asthma (Acute 04/02/13) Cyst of ovary (Acute) Medical History Colonoscopy planned Diverticulitis of large intestine HTN (hypertension) Hypercholesterolemia Learning disability Restless legs takes Premapaxil Surgical History bladder suspension for incontinence Abdominal hysterectomy (~1979) for heavy bleeding. Arthroplasty of knee L knee Dr Fuentes Cholecystectomy laparoscopic 03/2011 Extraction of cataract in [place] History of colonoscopy (~07/24/19) Oophrectomy, Both (04/09/13) laparotomy. aoc and kk. Family History Sister Heart disease Son Parent-child estrangement nec Under care of [facility] life sentence for murder Daughter Parent-child estrangement nec Substance abuse Social History Smoking/Tobacco Use Status: Former Tobacco Use tobacco type: cigarettes Tobacco: How many years used: 40 Smoking risk assessment performed?: Yes Alcohol Intake: former Drug use: Never Substance use type: does not use Caregiver/Support person: No Household members: none Housing: apartment Number of Children: 0 Communication Needs: Cannot Read Education Level: middle school Details: finished 6th grade only Do you need help understanding health information?: Always current occupation: always disabled; worked as [employer] for 5 years in her late teens, early 20s Pets and animals: No What is your relationship status?: How often do you talk on the phone with friends or family?: never How often do you get together with friends or relatives?: never Panel score (0-1 are the most socially isolated patients): 0 What type of physical activity do you participate in: walking and irregular exercise Duration: < 15 minutes/day Frequency: 1-2 times per week Special pankaj needs: No Agree to transfusion: Yes Seatbelt use: always Drive intox or ride w/intox backhaul driver: No Water heater temp set <120 deg: Yes Working smoke detector in home: Yes Firearms in home: No Do you feel safe at home: Yes Do you feel safe in your relationship?: Yes Additional Social history: she was very briefly in her teens was with Praneeth Cee for 15 years; he in 2016, she thinks, from colon cancer, bled out. Estranged from both her children, no family, no DPOA. Daughter with SA; her children taken from her. Son incarcerated for life. Exam Narrative Exam Narrative: GEN: awake, alert, oriented 3. Pleasant, well groomed, interactive. HEAD: Normocephalic, atraumatic ENT: Mucous membranes slightly dry, oropharynx unremarkable, External ear exam unremarkable EYES: PERRL, EOMI NECK: Full ROM, no GALLO, no menigismus CHEST/RESP: Nontender, clear to auscultation bilateral, no wheeze/rhonchi/rales CARDIOVASCULAR: RRR, no murmur, rub yusuf. 2+ Rad pulse bilateral ABDOMEN: Soft, nontender, no mass. +Bowel sounds EXT: Full ROM, no edema, no rash. Motor strength graded 5 out of 5 against resistance bilateral lower extremity Neuro: Grossly normal neurologic exam, conversant, interactive. Psych: Speech fluent, thoughts congruent, affect normal Course Vital Signs Vital signs: Vital Signs Temperature 36.9 C 05/29/21 11:43 Pulse 69 05/29/21 11:43 Respiratory Rate 14 05/29/21 11:43 Blood Pressure 120/87 05/29/21 11:43 Pulse Oximetry 98 05/29/21 11:43 Temperature 36.9 C 05/29/21 11:43 Temperature Source Skin 05/29/21 11:43 Pulse 69 05/29/21 11:43 Respiratory Rate 14 05/29/21 11:43 Respiratory Effort 05/29/21 11:43 Blood Pressure 120/87 05/29/21 11:43 Blood Pressure Position Supine 05/29/21 11:43 Pulse Oximetry 98 05/29/21 11:43 Oxygen Delivery Method Room Air 05/29/21 11:43 Oxygen Flow Rate 0 05/29/21 11:43 Pain Level 0 05/29/21 11:43
[2021-05-29] MEDS: Normal Saline 1,000 ML 150 ML IV (12:07)
[2021-05-29 12:15] LABS: Abs Immature Grans 0.03 10^3/uL (0.0-0.06); Absolute Basophil Count 0.09 10^3/uL (0.0-0.2); Absolute Eosinophil Count 0.44 10^3/uL (0.0-0.7); Absolute Lymphocyte Count 2.35 10^3/uL (1.2-3.4); Absolute Monocyte Count 0.79 10^3/uL (0.1-0.8); Basophils % 0.9; Eosinophils % 4.3; HCT 32.3 % (36.0-46.0); HGB 9.6 g/dL (11.2-15.7); Immature Grans % 0.3; Lymphocytes % 22.8; MCH 22.3 pg (27.0-33.0); MCHC 29.7 % (32.0-36.0); MCV 75.1 fL (80-95); MPV 9.4 fL (8.0-11.0); Monocytes % 7.7; Nucleated RBC 0 %; Platelet Count 259 10^3/uL (130-400); RDW 16.3 % (11.7-14.6); RDW-SD 44.2 fL
[2021-05-29 12:29] LABS: Bilirubin Negative (Negative); Blood Negative (Negative); Clarity Clear (Clear); Glucose Negative (Negative); Ketones Negative (Negative); Leukocyte Esterase Trace (Negative); Nitrite Negative (Negative); Specific Gravity 1.015 (1.005-1.025); Urobilinogen 0.2 EU/dL (Up TO 0.2)
[2021-05-29 12:39] LABS: ALT 24 U/L (14-59); AST 18 U/L (15-37); Albumin 3.4 g/dL (3.4-5.0); Alkaline Phosphatase 92 U/L (46-116); BUN 12 mg/dL (7-18); Bilirubin, Total 0.4 mg/dL (0.2-1.0); CREATININE 0.9 mg/dL (0.55-1.02); Calcium 8.6 mg/dL (8.5-10.1); Chloride 107 mmol/L (98-107); Glucose 178 mg/dL (74-106); Magnesium 1.8 mg/dL (1.8-2.4); Potassium 3.9 mmol/L (3.5-5.1); Sodium 142 mmol/L (136-145); Total Protein 6.6 g/dL (6.4-8.2)
[2021-05-29 12:41] LABS: Bacteria Few HPF (Negative); Casts Negative LPF (Negative); Crystals Negative HPF (Negative); Epithelial Cells Moderate HPF (Negative); Mucus Trace (Negative); Other Cells Few Transitional (Negative); RBC 0-2 HPF (0-2)
[2021-05-29 12:42] LABS: C & S Indicated? No/Sq. Contamination
--- NOTE | 2021-05-29 13:35 | DI.VRAD_ITS ---
PROCEDURE INFORMATION: Exam: XR Chest Exam date and time: 05/29/2021 11:55 AM Age: 70 years old Clinical indication: Cough TECHNIQUE: Imaging protocol: XR of the chest. Views: 1 view. COMPARISON: CR XR PORTABLE CHEST AP 10/10/2020 13:33 FINDINGS: Scan quality: Exam is technically satisfactory. Lungs: Lungs are clear with no infiltrate or nodule. Pleural spaces: Unremarkable. No pleural effusion. No pneumothorax. Heart/Mediastinum: Cardiomediastinal silhouette is normal. Vasculature: Pulmonary vessels are non-engorged. Bones/joints: Unremarkable. IMPRESSION: No active cardiopulmonary disease. Dictated and Authenticated by: Modesto Morales MD. Ordering:HELADIO Salvador MD
[2021-05-31 19:27] LABS: COVID-19 RT-PCR UVMMC Result Presumptive Positive (Negative)
--- NOTE | 2021-05-31 20:00 | NUR.NOTE ---
Nursing Note: Pt called for follow up and notified of positive COVID result. Pt reports she is feeling better and just has a dry hacking cough and was getting excited to go start at [facility]. Pt is awaiting meds from pcp for cough. Pt verbalizes the understanding that she will need to quarantine and hold off starting at [facility] until COVID symptoms are gone.
== END 2021-05-29 14:31 | disposition home or self-care (01) ==
PROVIDERS: Emergency Provider Emergency Medicine; PCP Nurse Practitioner Family
DX: R53.1 Weakness (principal); R05.1 Acute cough; U09.9 Post COVID-19 condition, unspecified; Z20.822 Contact with and (suspected) exposure to COVID-19
CPT/HCPCS: 36415; 80053; 96360; 96361; 99284; U0003; 71045; 81003; 81015; 83735; 85025

== ENCOUNTER 2021-06-28 12:50 | Emergency (ER) | payer MEDICARE, MEDICAID, SELFPAY ==
[2021-06-28 12:46] VITALS: BP 155/67; PULSE 79; RESP 24; TEMP 36.6; O2SAT 98
--- NOTE | 2021-06-28 13:15 | DI.RAD_ITS ---
Exam(s) XR PORTABLE CHEST AP EXAM: XR PORTABLE CHEST AP CLINICAL HISTORY: Coughing. TECHNIQUE: 2D digital imaging was performed. COMPARISON: CR,XR XR PORTABLE CHEST AP from 05/29/2021 FINDINGS: LUNGS: Clear. No pleural abnormality seen. HEART: Normal. MEDIASTINUM: Normal. OTHER FINDINGS: None. IMPRESSION: No acute pulmonary findings. DATA REPOSITORY: RADIATION DOSE DELIVERED: Total DLP
--- NOTE | 2021-06-28 13:27 | W.ED.GENAD ---
Discharge Plan Disposition Patient Disposition: HOME Condition: Improving Discharge Details Clinical Impression: Acute bronchitis with bronchospasm Primary Care Provider: Sebastián Stephens ED Provider: Modesto Yanes Home Meds and New Rx's Prescriptions: New azithromycin 250 mg tablet 250 mg PO DAILY 4 Days Qty: 4 RF: 0 benzonatate 200 mg capsule 200 mg PO BID-TID PRN (Reason: cough) Qty: 20 RF: 0 prednisone 50 mg tablet 50 mg PO DAILY 5 Days Qty: 5 RF: 0 guaifenesin [Mucinex] 600 mg tablet extended release 12hr 600 mg PO Q12H PRNQty: 10 RF: 0 Continued lactulose 10 gram/15 mL solution 15 ml PO DAILY RF: 0 quetiapine 100 mg tablet 150 mg PO HS RF: 0 (DME) 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 See Rx Instructions .ROUTE .MEDSUPPLY Qty: 1 RF: 0 glyburide-metformin 1 EACH tablet 500 tab-cap PO BID RF: 0 albuterol sulfate [ProAir HFA] 8.5 GM HFA aerosol inhaler 1 puff Inhalation Q4H PRN RF: 0 pantoprazole 40 MG tablet,delayed release (DR/EC) 40 mg PO DAILY RF: 0 docusate sodium [Colace] 100 mg capsule 100 mg PO BID Qty: 100 RF: 0 simvastatin 40 MG tablet 40 mg PO HS RF: 0 calcium carbonate-vitamin D3 1 EACH tablet 1 ea PO BID RF: 0 magnesium oxide 400 mg magnesium Capsule 400 mg PO BID RF: 0 losartan 50 mg tablet 50 mg PO DAILY RF: 0 Stiolto Respimat 2.5-2.5 mcg/actuation mist 2 puff INHALATION DAILY RF: 0 Discharge Instructions Instructions: Acute Bronchitis (ED) Additional Instructions: 4 prescriptions were sent to your pharmacy in [place]. You received today's doses of antibiotic and Pred. May use the provided Tessalon every 6-8 hours as needed for cough. Follow-up with regular doctor if not improving in 5 to 7 days time. Return to the ER for any acute concerns. Medical Decision Making 71-year-old female with a history of COPD, history of Covid infection in May, 2 weeks of cough, mild congestion. States the coughing has been persistent to the point that she sought EMS transport today. She has not tried an antialso. Patient arrives with normal oxygenation on room air, speaking in full sentences, cough noted during exam and she does have few scant end expiratory wheezes. Patient referred for screening Covid test, chest x-ray. She is given cough suppression a single dose of codeine and Tessalon, prednisone for slight bronchospasm, as well as DuoNeb. Chest x-ray without acute findings. Patient improved with cough suppressant. Will prescribe her Tessalon for home along with guaifenesin. I do feel she has mild bronchitis, and with her history of COPD will opt to treat with both a burst of prednisone as well as azithromycin. HPI General Mode of arrival: ambulatory. Date/Time Provider Initiated Documentation: 06/28/21 13:02. Limitations to Documentation: no limitations. Information obtained by: patient. History of Present Illness 71 year old F presents to the emergency department with the chief complaint of cough for 2 weeks, described as moderate, and is localized to the chest. Patient reports no radiation. and it has been intermittent. No relieving factors improve symptom(s), No exacerbating factors reported . Patient notes cough; denies chest pain, fever/chills and shortness of breath. Patient did receive the following treatments prior to arrival, none Related Data Home Medications Medication Instructions Recorded Confirmed pantoprazole 40 mg PO DAILY 02/20/13 06/28/21 albuterol sulfate [ProAir HFA] 1 puff INHALATION Q4H PRN inhaler 09/22/16 06/28/21 glyburide-metformin 500 tab-cap PO BID tab-cap 09/22/16 06/28/21 calcium carbonate-vitamin D3 1 ea PO BID 10/10/17 06/28/21 simvastatin 40 mg PO HS 10/10/17 06/28/21 magnesium oxide 400 mg PO BID 07/23/19 06/28/21 docusate sodium [Colace] 100 mg PO BID #100 cap 04/06/20 06/28/21 lactulose 10 gram/15 mL oral 15 ml PO DAILY 10/18/20 06/28/21 solution quetiapine 100 mg tablet 150 mg PO HS tab 10/18/20 06/28/21 Stiolto Respimat 2 puff INHALATION DAILY 11/04/20 06/28/21 losartan 50 mg PO DAILY 11/04/20 06/28/21 inhalational spacing device #1 ea 06/17/21 06/17/21 azithromycin 250 mg PO DAILY 4 Days #4 tab 06/28/21 benzonatate 200 mg PO BID-TID PRN #20 cap 06/28/21 guaifenesin [Mucinex] 600 mg PO Q12H PRN #10 tab 06/28/21 prednisone 50 mg PO DAILY 5 Days #5 tab 06/28/21 Previous Rx's Medication Instructions Recorded docusate sodium [Colace] 100 mg PO BID #100 cap 04/06/20 inhalational spacing device #1 ea 06/17/21 azithromycin 250 mg PO DAILY 4 Days #4 tab 06/28/21 benzonatate 200 mg PO BID-TID PRN #20 cap 06/28/21 guaifenesin [Mucinex] 600 mg PO Q12H PRN #10 tab 06/28/21 prednisone 50 mg PO DAILY 5 Days #5 tab 06/28/21 Allergies Allergy/AdvReac Type Severity Reaction Status Date / Time thiopental sodium Allergy Skin Rash Unverified 06/28/21 13:01 [From Pentothal] General Stated Complaint: RespSymp LYNNETTE: 4 Review of Systems Narrative: 6 systems reviewed and otherwise negative. Reports positive Covid in May. Immunized. No chest pain. No known sick contacts. PFSH All Active Problems (Updated 06/28/21 @ 14:26 by Modesto Yanes MD) Acute bronchitis with bronchospasm (Acute) Illiterate (Chronic) able to manage independently Dry cough (Chronic) asking for humidifier Fall (Acute) CHI (closed head injury) (Acute) Shortness of breath (Acute) COVID-19 (Acute) with persistent cough Transient leg weakness (Acute) Bronchospasm (Acute) Right anterior knee pain (Chronic) Atypical chest pain (Acute) Palliative care status (Chronic) Lives alone with help available (Chronic) NO DPOA yet; ? state guardian? Financial difficulties (Chronic) Hair loss (Chronic) Constipation (Chronic) takes lactulose to tx Encounter for screening colonoscopy (Acute) Social isolation (Chronic) Chronic low back pain (Acute) DNI (do not intubate) (Chronic) DNR (do not resuscitate) (Chronic) Goals of care, counseling/discussion (Acute) Palliative care patient (Chronic) Learning disability (Chronic) manages her own medications GERD (gastroesophageal reflux disease) (Chronic) Diverticulosis (Acute) Sleep disorder (Acute) Anxiety (Chronic) COPD (chronic obstructive pulmonary disease) (Chronic) Vertigo (Acute) Onychomycosis (Acute) Carpal tunnel syndrome (Acute) Leukocytosis (leucocytosis) (Acute) Anemia (Chronic) Hypomagnesemia (Acute) Eczema (Acute) Benign essential tremor (Acute) Diabetes mellitus (Chronic) Neoplasm of skin (Acute 12/29/13) Mixed stress and urge urinary incontinence (Acute 09/22/16) Hyperlipidemia (Acute 04/02/13) Urinary, incontinence, stress female (Acute 04/02/13) Essential hypertension (Acute 04/02/13) Depression (Acute 04/02/13) Cyst of ovary (Acute 03/12/13) 02/26/13 L ovary [id number], R ovary [id number]. Not complex. Cerumen impaction (Acute 12/29/13) Asthma (Acute 04/02/13) Cyst of ovary (Acute) Laparoscopic bilateral salpingo-oophorectomy on 04-09-[address]Anne Medina. Path pending. Medical History Colonoscopy planned Diverticulitis of large intestine HTN (hypertension) Hypercholesterolemia Learning disability Restless legs takes Premapaxil Surgical History bladder suspension for incontinence Abdominal hysterectomy (~1979) for heavy bleeding. Arthroplasty of knee L knee Dr Fuentes Cholecystectomy laparoscopic 03/2011 Extraction of cataract in [place] History of colonoscopy (~07/24/19) Oophrectomy, Both (04/09/13) laparotomy. aoc and kk. Family History Sister Heart disease Son Parent-child estrangement nec Under care of halfway service life sentence for murder Daughter Parent-child estrangement nec Substance abuse Social History Smoking/Tobacco Use Status: Former Tobacco Use tobacco type: cigarettes Tobacco: How many years used: 40 Smoking risk assessment performed?: Yes Alcohol Intake: former Drug use: Never Substance use type: does not use Caregiver/Support person: No Household members: none Housing: apartment Number of Children: 0 Communication Needs: Cannot Read Education Level: middle school Details: finished 6th grade only Do you need help understanding health information?: Always current occupation: always disabled; worked as [employer] for 5 years in her late teens, early 20s Pets and animals: No What is your relationship status?: How often do you talk on the phone with friends or family?: never How often do you get together with friends or relatives?: never Panel score (0-1 are the most socially isolated patients): 0 What type of physical activity do you participate in: walking and irregular exercise Duration: < 15 minutes/day Frequency: 1-2 times per week Special pankaj needs: No Agree to transfusion: Yes Seatbelt use: always Drive intox or ride w/intox 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 Estranged from both her children, no family, no DPOA. Daughter with SA; her children taken from her. Son incarcerated for life. Exam Narrative Exam Narrative: GEN: awake, alert, oriented 3. Pleasant, well groomed, interactive. HEAD: Normocephalic, atraumatic ENT: Mucous membranes moist, oropharynx unremarkable, External ear exam unremarkable EYES: PERRL, EOMI NECK: Full ROM, no GALLO, no menigismus CHEST/RESP: Nontender, cough noted, few scant end expiratory wheeze but predominantly clear bilaterally CARDIOVASCULAR: RRR, no murmur, rub yusuf. 2+ Rad pulse bilateral ABDOMEN: Soft, nontender, no mass. +Bowel sounds EXT: Full ROM, no edema, no rash Neuro: Grossly normal neurologic exam, conversant, interactive. Psych: Speech fluent, thoughts congruent, affect normal Course Vital Signs Vital signs: Vital Signs Temperature 36.6 C 06/28/21 12:46 Pulse 79 06/28/21 12:46 Respiratory Rate 24 06/28/21 12:46 Blood Pressure 155/67 H 06/28/21 12:46 Pulse Oximetry 98 06/28/21 12:46 Temperature 36.6 C 06/28/21 12:46 Temperature Source Oral 06/28/21 12:46 Pulse 79 06/28/21 12:46 Respiratory Rate 24 06/28/21 12:46 Respiratory Effort Non-Labored 06/28/21 12:58 Respiratory Depth Normal 06/28/21 12:58 Blood Pressure 155/67 H 06/28/21 12:46 Blood Pressure Position Sitting 06/28/21 12:46 Pulse Oximetry 98 06/28/21 12:46 Oxygen Delivery Method Room Air 06/28/21 12:46 Oxygen Flow Rate 0 06/28/21 12:46 Pain Level 0 06/28/21 12:46
[2021-06-28] MEDS: guaiFENesin/CODEINE PHOSPHATE 10 ML CUP 5 ML PO (14:28)
[2021-06-28] MEDS: predniSONE 20 MG TAB 60 MG PO (14:28)
[2021-06-28 14:29] VITALS: RESP 8
[2021-06-28] MEDS: Albuterol/Ipratropium 3 ML UPD VIAL UPD (14:29)
[2021-06-28] MEDS: Benzonatate 100 MG CAP PO ×3 (14:30→14:54)
[2021-06-28] MEDS: Azithromycin 250 MG TAB 500 MG PO (14:53)
[2021-06-28 15:11] VITALS: BP 155/67; PULSE 79; RESP 24; TEMP 36.6; O2SAT 98
[2021-06-29 15:01] LABS: COVID-19 RT-PCR UVMMC Result Negative (Negative)
--- NOTE | 2021-06-29 17:30 | NUR.NOTE ---
negative covid result relayed to pt via phone.Nursing Note:
== END 2021-06-28 15:03 | disposition home or self-care (01) ==
PROVIDERS: Emergency Provider Emergency Medicine; PCP Nurse Practitioner Family
DX: J20.9 Acute bronchitis, unspecified (principal); J44.0 Chronic obstructive pulmonary disease with (acute) lower respiratory infection; Z87.891 Personal history of nicotine dependence; Z20.822 Contact with and (suspected) exposure to COVID-19
CPT/HCPCS: 94640; 99283; U0003; U0005; 71045; J7512; J7620

== ENCOUNTER 2021-08-08 12:30 | Emergency (ER) | payer MEDICARE, MEDICAID, SELFPAY ==
[2021-08-08] VITALS (10 sets, daily range): BP systolic 122–131; BP diastolic 50–106; PULSE 62–81; RESP 8–23; TEMP 36.7; O2SAT 96–100
--- NOTE | 2021-08-08 12:00 | RT.EKG_ITS ---
APPROVED REPORT Exam: Resting ECG Reason for Exam: sob Patient Location: E HR:72 bpm ECG Measurements Heart Rate 72 AXIS KS 192 P 42 QRSd 70 QRS 32 QT 391 T 72 QTc 427 Conclusion Sinus rhythm...normal P axis, V-rate 60- 99 Low voltage, precordial leads...precordial leads <1.0mV no STEMI. non-diagnostic EKG I have reviewed and interpreted ECG and agree with software generated interpretation.
--- NOTE | 2021-08-08 12:15 | DI.RAD_ITS ---
Exam(s) XR PORTABLE CHEST AP EXAM: XR PORTABLE CHEST AP CLINICAL HISTORY: cough/sob. TECHNIQUE: 2D digital imaging was performed. COMPARISON: CR XR PORTABLE CHEST AP from 06/28/2021 FINDINGS: Heart size is upper normal. The mediastinum is not widened. Lungs are clear. No infiltrates nor obvious pleural effusions. Chest leads in place. IMPRESSION: No acute pulmonary findings on this single AP portable view of the chest. DATA REPOSITORY: RADIATION DOSE DELIVERED: All CT scans at this facility use at least one of these dose optimization techniques: automated exposure control; mA and/or kV adjustment per patient size (includes targeted e xams where dose is matched to clinical indication); or iterative reconstruction.
--- NOTE | 2021-08-08 12:29 | ED.GENADUL_ITS ---
Discharge Plan Disposition Patient Disposition: HOME Condition: Improving Discharge Details Clinical Impression: Dry cough Primary Care Provider: Sebastián Stephens ED Provider: Osmin Hien Home Meds and New Rx's Prescriptions: Continued lactulose 10 gram/15 mL solution 15 ml PO DAILY RF: 0 quetiapine 100 mg tablet 150 mg PO HS RF: 0 (DME) 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 See Rx Instructions .ROUTE .MEDSUPPLY Qty: 1 RF: 0 glyburide-metformin 1 EACH tablet 500 tab-cap PO BID RF: 0 albuterol sulfate [ProAir HFA] 8.5 GM HFA aerosol inhaler 1 puff Inhalation Q4H PRN RF: 0 pantoprazole 40 MG tablet,delayed release (DR/EC) 40 mg PO DAILY RF: 0 docusate sodium [Colace] 100 mg capsule 100 mg PO BID Qty: 100 RF: 0 benzonatate 200 mg capsule 200 mg PO BID-TID PRN (Reason: cough) Qty: 20 RF: 0 guaifenesin [Mucinex] 600 mg tablet extended release 12hr 600 mg PO Q12H PRNQty: 10 RF: 0 simvastatin 40 MG tablet 40 mg PO HS RF: 0 calcium carbonate-vitamin D3 1 EACH tablet 1 ea PO BID RF: 0 magnesium oxide 400 mg magnesium Capsule 400 mg PO BID RF: 0 losartan 50 mg tablet 50 mg PO DAILY RF: 0 Stiolto Respimat 2.5-2.5 mcg/actuation mist 2 puff INHALATION DAILY RF: 0 Discharge Instructions Instructions: Acute Cough (ED) Additional Instructions: Work-up in the ER does not reveal any obvious emergent process. It is extremely important that you use your inhalers at home as directed. You may also use [id number] cough suppressant as directed for symptomatic control. Please watch for new or worsening symptoms and return to the ER for any concerns. I recommend that you contact your primary care provider tomorrow morning to discuss your ER visit and need for outpatient reevaluation. Medical Decision Making 71-year-old female, history of hypertension, COPD, anxiety, diabetes, reports a mild dry cough that began yesterday, associated with mild shortness of breath and occasional wheezing, felt as though her symptoms were worse lying down yesterday night. Clinically she appears slightly anxious but otherwise appears well, nontoxic, is afebrile, no evidence of tachypnea or hypoxemia. He does not require any supplemental oxygen. Pulse 81. Given her subjective complaint, I do believe obtaining a cardiac work with a single troponin and EKG given the timing of her symptoms, a D-dimer, and a 1 view chest x-ray with a Covid test is all reasonable. Plan is to give her a single DuoNeb and reassess. Patient given a single DuoNeb and now reports that she is asymptomatic. She is requesting water. Tolerates p.o. intake without any difficulty whatsoever. Her laboratory values do not reveal any obvious emergent process. Mild leukocytosis which is nonspecific at 12.08, fairly near her baseline. Baseline anemia, hemoglobin 9.9 with a hematocrit 33.2. D-dimer is negative at 419, will not pursue CTA of the chest. Electrolytes unremarkable, creatinine 0.2 GFR greater than 60. Magnesium 1.9 with a troponin less than 50. BNP is 99. Covid swab negative Chest x-ray negative per radiology Work-up in the ER is unremarkable for any obvious emergent process, patient is now asymptomatic with a single DuoNeb. I see no clear indication for any antibiotic therapy. Given how mild her symptoms are, I am hesitant to even initiate any oral steroid and recommend that she be sure to use her inhaler as directed. She was encouraged to return to the ER for new or worsening symptoms, otherwise she will contact her primary care provider later today or tomorrow to discuss her ER visit need for outpatient reevaluation. Patient is comfortable plan and has no additional questions or concerns. This documentation was generated using [employer] dictation system, please disregard any oddities of phrase or misspellings. Medical Records Medical records reviewed: Yes I reviewed the patient's medical records. Imaging Data Radiologic Study: Attestation: I personally reviewed and interpreted this imaging study as follows: Imaging: X-Ray Radiologist's impression: Exam(s) XR PORTABLE CHEST AP EXAM: XR PORTABLE CHEST AP CLINICAL HISTORY: cough/sob. TECHNIQUE: 2D digital imaging was performed. COMPARISON: CR XR PORTABLE CHEST AP from 06/28/2021 FINDINGS: Heart size is upper normal. The mediastinum is not widened. Lungs are clear. No infiltrates nor obvious pleural effusions. Chest leads in place. IMPRESSION: No acute pulmonary findings on this single AP portable view of the chest. Lab Data Lab results reviewed: Yes I reviewed the patient's lab results. Labs: Laboratory Tests Range/Units 08/08/21 08/08/21 08/08/21 12:20 12:20 12:20 WBC (4.4-10.8) 10^3/uL RBC (3.93-5.22) 10^6/uL Hgb (11.2-15.7) g/dL Hct (36.0-46.0) % MCV (80-95) fL MCH (27.0-33.0) pg MCHC (32.0-36.0) % RDW (11.7-14.6) % Plt Count (130-400) 10^3/uL MPV (8.0-11.0) fL Immature Gran % Neutrophils % Lymphocytes % Monocytes % Eosinophils % Basophils % Nucleated RBC % % Absolute Neutrophils (1.2-6.7) 10^3/uL Absolute Lymphocytes (1.2-3.4) 10^3/uL Absolute Monocytes (0.1-0.8) 10^3/uL Absolute Eosinophils (0.0-0.7) 10^3/uL Absolute Basophils (0.0-0.2) 10^3/uL D-Dimer (<500) ng/mlFEU 419 Sodium (136-145) mmol/L 139 Potassium (3.5-5.1) mmol/L 4.3 Chloride (98-107) mmol/L 104 Carbon Dioxide (21.0-32.0) mmol/L 28.0 Anion Gap (3-11) mmol/L 7.0 BUN (7-18) mg/dL 21 H Creatinine (0.55-1.02) mg/dL 0.6 Estimated GFR/1.73 m2 (mL/min/1.73m2) >= 60.00 Glucose (74-106) mg/dL 112 H Calcium (8.5-10.1) mg/dL 9.2 Magnesium (1.8-2.4) mg/dL 1.9 Total Bilirubin (0.2-1.0) mg/dL 0.3 AST (15-37) U/L 14 L ALT (14-59) U/L 24 Alkaline Phosphatase (46-116) U/L 112 Troponin I (<or=60) ng/L < 50 NT-Pro-B Natriuret Pep (<300) pg/mL 99 Total Protein (6.4-8.2) g/dL 7.5 Albumin (3.4-5.0) g/dL 3.8 COVID-19 Source SARS-CoV-2 (PCR) (Negative) Range/Units 08/08/21 08/08/21 12:20 12:40 WBC (4.4-10.8) 10^3/uL 12.08 H RBC (3.93-5.22) 10^6/uL 4.51 Hgb (11.2-15.7) g/dL 9.9 L Hct (36.0-46.0) % 33.2 L MCV (80-95) fL 73.6 L MCH (27.0-33.0) pg 22.0 L MCHC (32.0-36.0) % 29.8 L RDW (11.7-14.6) % 16.1 H Plt Count (130-400) 10^3/uL 291 MPV (8.0-11.0) fL 9.6 Immature Gran % 0.3 Neutrophils % 63.5 Lymphocytes % 25.0 Monocytes % 6.8 Eosinophils % 3.7 Basophils % 0.7 Nucleated RBC % % 0 Absolute Neutrophils (1.2-6.7) 10^3/uL 7.67 H Absolute Lymphocytes (1.2-3.4) 10^3/uL 3.02 Absolute Monocytes (0.1-0.8) 10^3/uL 0.82 H Absolute Eosinophils (0.0-0.7) 10^3/uL 0.45 Absolute Basophils (0.0-0.2) 10^3/uL 0.08 D-Dimer (<500) ng/mlFEU Sodium (136-145) mmol/L Potassium (3.5-5.1) mmol/L Chloride (98-107) mmol/L Carbon Dioxide (21.0-32.0) mmol/L Anion Gap (3-11) mmol/L BUN (7-18) mg/dL Creatinine (0.55-1.02) mg/dL Estimated GFR/1.73 m2 (mL/min/1.73m2) Glucose (74-106) mg/dL Calcium (8.5-10.1) mg/dL Magnesium (1.8-2.4) mg/dL Total Bilirubin (0.2-1.0) mg/dL AST (15-37) U/L ALT (14-59) U/L Alkaline Phosphatase (46-116) U/L Troponin I (<or=60) ng/L NT-Pro-B Natriuret Pep (<300) pg/mL Total Protein (6.4-8.2) g/dL Albumin (3.4-5.0) g/dL COVID-19 Source Nasal/Nares SARS-CoV-2 (PCR) (Negative) Negative ECG Data Attestation: I personally reviewed and interpreted this ECG (s) as follows: Interpretation: Please see official report by Dr. Guzman. Sinus rhythm, ventricular rate 72. No STEMI. HPI General Mode of arrival: EMS . Date/Time Provider Initiated Documentation: 08/08/21 13:22 . Limitations to Documentation: no limitations . Information obtained by: patient and EMS . HPI Narrative: This is a 71-year-old female, past medical history that includes DNR, DNI, anxiety, COPD, anemia, diabetes, hypertension, had Covid in early May, reports that she is fully vaccinated, presenting to the ER reporting a mild dry cough, wheezing, shortness of breath that began yesterday evening. Patient reports that she used her inhaler and her symptoms did much improve. She denies recent illness or sick contacts. She denies any headache, fever, neck pain, chest pain, productive cough, abdominal pain, nausea vomiting with pain or swelling her legs. Patient reports that her symptoms caused her anxiety to become worse and she is already improving after being with EMS. Related Data Home Medications Medication Instructions Recorded Confirmed pantoprazole 40 mg PO DAILY 02/20/13 06/28/21 albuterol sulfate [ProAir HFA] 1 puff INHALATION Q4H PRN inhaler 09/22/16 06/28/21 glyburide-metformin 500 tab-cap PO BID tab-cap 09/22/16 06/28/21 calcium carbonate-vitamin D3 1 ea PO BID 10/10/17 06/28/21 simvastatin 40 mg PO HS 10/10/17 06/28/21 magnesium oxide 400 mg PO BID 07/23/19 06/28/21 docusate sodium [Colace] 100 mg PO BID #100 cap 04/06/20 06/28/21 lactulose 10 gram/15 mL oral 15 ml PO DAILY 10/18/20 06/28/21 solution quetiapine 100 mg tablet 150 mg PO HS tab 10/18/20 06/28/21 Stiolto Respimat 2 puff INHALATION DAILY 11/04/20 06/28/21 losartan 50 mg PO DAILY 11/04/20 06/28/21 inhalational spacing device #1 ea 06/17/21 06/17/21 benzonatate 200 mg PO BID-TID PRN #20 cap 06/28/21 guaifenesin [Mucinex] 600 mg PO Q12H PRN #10 tab 06/28/21 Previous Rx's Medication Instructions Recorded docusate sodium [Colace] 100 mg PO BID #100 cap 04/06/20 inhalational spacing device #1 ea 06/17/21 benzonatate 200 mg PO BID-TID PRN #20 cap 06/28/21 guaifenesin [Mucinex] 600 mg PO Q12H PRN #10 tab 06/28/21 Allergies Allergy/AdvReac Type Severity Reaction Status Date / Time thiopental sodium Allergy Skin Rash Unverified 06/28/21 13:01 [From [facility]] General Stated Complaint: SOB LYNNETTE: 3 Review of Systems Constitutional Constitutional: Denies fatigue, Denies fever(s) and Denies weakness ENT Ears, Nose, Mouth, and Throat: Denies neck pain Cardiovascular Cardiovascular: Denies chest pain and Reports dyspnea Respiratory Respiratory: Reports cough, Reports dyspnea and Reports wheezing Gastrointestinal Gastrointestinal: Denies abdominal pain, Denies nausea and Denies vomiting Genitourinary Genitourinary: Denies dysuria Musculoskeletal Musculoskeletal: Denies back pain, Denies neck pain, Denies numbness and Denies tingling Integumentary/Breasts Skin/Breast: Denies rash Neurologic Neurologic: Denies numbness, Denies tingling and Denies weakness Psychiatric Psychiatric: Reports anxiety Endocrine Endocrine: Denies fatigue Hematologic/Lymphatic Hematologic/Lymphatic: Denies easy bleeding and Denies easy bruising Allergic/Immunologic Allergic/Immunologic: Reports wheezing PFSH All Active Problems (Updated 08/08/21 @ 15:29 by ADAMARIS Cartagena) Illiterate (Chronic) able to manage independently Dry cough (Chronic) asking for humidifier Fall (Acute) CHI (closed head injury) (Acute) Shortness of breath (Acute) COVID-19 (Acute) with persistent cough Transient leg weakness (Acute) Bronchospasm (Acute) Right anterior knee pain (Chronic) Atypical chest pain (Acute) Palliative care status (Chronic) Lives alone with help available (Chronic) NO DPOA yet; ? state guardian? Financial difficulties (Chronic) Hair loss (Chronic) Constipation (Chronic) takes lactulose to tx Encounter for screening colonoscopy (Acute) Social isolation (Chronic) Chronic low back pain (Acute) DNI (do not intubate) (Chronic) DNR (do not resuscitate) (Chronic) Goals of care, counseling/discussion (Acute) Palliative care patient (Chronic) Learning disability (Chronic) manages her own medications GERD (gastroesophageal reflux disease) (Chronic) Diverticulosis (Acute) Sleep disorder (Acute) Anxiety (Chronic) COPD (chronic obstructive pulmonary disease) (Chronic) Vertigo (Acute) Onychomycosis (Acute) Carpal tunnel syndrome (Acute) Leukocytosis (leucocytosis) (Acute) Anemia (Chronic) Hypomagnesemia (Acute) Eczema (Acute) Benign essential tremor (Acute) Diabetes mellitus (Chronic) Neoplasm of skin (Acute 12/29/13) Mixed stress and urge urinary incontinence (Acute 09/22/16) Hyperlipidemia (Acute 04/02/13) Urinary, incontinence, stress female (Acute 04/02/13) Essential hypertension (Acute 04/02/13) Depression (Acute 04/02/13) Cyst of ovary (Acute 03/12/13) 02/26/13 L ovary [id number], R ovary [id number]. Not complex. Cerumen impaction (Acute 12/29/13) Asthma (Acute 04/02/13) Cyst of ovary (Acute) Laparoscopic bilateral salpingo-oophorectomy on 04-09-[address]Anne Mohan nnor. Path pending. Medical History Colonoscopy planned Diverticulitis of large intestine HTN (hypertension) Hypercholesterolemia Learning disability Restless legs takes Premapaxil Surgical History bladder suspension for incontinence Abdominal hysterectomy (~1979) for heavy bleeding. Arthroplasty of knee L knee Dr Fuentes Cholecystectomy laparoscopic 03/2011 Extraction of cataract in [place] History of colonoscopy (~07/24/19) Oophrectomy, Both (04/09/13) laparotomy. aoc and kk. Family History Sister Heart disease Son Parent-child estrangement nec Under care of [facility] service life sentence for murder Daughter Parent-child estrangement nec Substance abuse Social History Smoking/Tobacco Use Status: Former Tobacco Use tobacco type: cigarettes Tobacco: How many years used: 40 Smoking risk assessment performed?: Yes Alcohol Intake: former Drug use: Never Substance use type: does not use Caregiver/Support person: No Household members: none Housing: apartment Number of Children: 0 Communication Needs: Cannot Read Education Level: middle school Details: finished 6th grade only Do you need help understanding health information?: Always current occupation: always disabled; worked as [employer] for 5 years in her late teens, early 20s Pets and animals: No What is your relationship status?: How often do you talk on the phone with friends or family?: never How often do you get together with friends or relatives?: never Panel score (0-1 are the most socially isolated patients): 0 What type of physical activity do you participate in: walking and irregular ex ercise Duration: < 15 minutes/day Frequency: 1-2 times per week Special pankaj needs: No Agree to transfusion: Yes Seatbelt use: always Drive intox or ride w/intox driver operator: No Water heater temp set <120 deg: Yes Working smoke detector in home: Yes Firearms in home: No Do you feel safe at home: Yes Do you feel safe in your relationship?: Yes Additional Social history: she was very briefly in her teens was with Praneeth Cee for 15 years; he in 2016, she thinks, from colon cancer, bled out. Estranged from both her children, no family, no DPOA. Daughter with SA; her children taken from her. Son incarcerated for life. Exam Const General: cooperative, healthy appearing, comfortable, no acute distress and anxious Orientation: alert and awake HENDC Head: normal to inspection, normocephalic and atraumatic Face and sinus: normal facial exam Mouth: moist mucous membranes Eyes General: appearance normal, both eyes and all related structures Conjunctivae: conjunctivae normal Neck Neck: normal visual inspection, full ROM, trachea midline, supple and nontender Resp Effort & Inspection: normal respiratory effort, able to speak in complete sentences, cough Quality of cough: dry (mild) and not tachypneic Other: Rare bilateral upper lobe wheeze, nearly fully clear with coughing. Cardio Rate: regular rate Rhythm: regular rhythm GI Palpation: soft and nontender Back/Spine/Pelvis Back: No back tenderness Skin General skin exam: no rashes or lesions noted Neuro General: patient alert, patient awake, moves all extremities and no focal motor deficits Cognition: normal cognition Speech: speech normal Gait: normal gait Sensory Exam: no sensory deficits noted Extrem General: normal to inspection, full ROM, capillary refill normal, no pedal edema and no calf tenderness Psych Appearance: grossly normal Mental Status: mental status grossly normal Course Vital Signs Vital signs: Vital Signs Temperature 36.7 C 08/08/21 12:01 Pulse 81 08/08/21 12:01 Respiratory Rate 18 08/08/21 12:01 Pulse Oximetry 97 08/08/21 12:01 Temperature 36.7 C 08/08/21 12:01 Temperature Source Tympanic 08/08/21 12:01 Pulse 63 08/08/21 12:19 Pulse 71 08/08/21 12:19 Respiratory Rate 18 08/08/21 12:19 Respiratory Effort Non-Labored 08/08/21 12:07 Respiratory Depth Normal 08/08/21 12:07 Respiratory Pattern Normal 08/08/21 12:07 Blood Pressure Mean 76 08/08/21 12:19 Pulse Oximetry 98 08/08/21 12:19 Oxygen Delivery Method Room Air 08/08/21 12:01 Oxygen Flow Rate 0 08/08/21 12:01 Pain Level 0 08/08/21 12:01
[2021-08-08 12:48] LABS: Source Nasal/Nares
[2021-08-08 12:49] LABS: Abs Immature Grans 0.04 10^3/uL (0.0-0.06); Absolute Basophil Count 0.08 10^3/uL (0.0-0.2); Absolute Eosinophil Count 0.45 10^3/uL (0.0-0.7); Absolute Lymphocyte Count 3.02 10^3/uL (1.2-3.4); Absolute Monocyte Count 0.82 10^3/uL (0.1-0.8); Absolute Neutrophil Count 7.67 10^3/uL (1.2-6.7); Basophils % 0.7; Eosinophils % 3.7; HCT 33.2 % (36.0-46.0); HGB 9.9 g/dL (11.2-15.7); Immature Grans % 0.3; MCHC 29.8 % (32.0-36.0); MCV 73.6 fL (80-95); MPV 9.6 fL (8.0-11.0); Monocytes % 6.8; Neutrophils % 63.5; Nucleated RBC 0 %; Platelet Count 291 10^3/uL (130-400); RBC 4.51 10^6/uL (3.93-5.22); RDW 16.1 % (11.7-14.6); RDW-SD 42.5 fL; WBC 12.08 10^3/uL (4.4-10.8)
[2021-08-08 13:10] LABS: ALT 24 U/L (14-59); AST 14 U/L (15-37); Albumin 3.8 g/dL (3.4-5.0); Alkaline Phosphatase 112 U/L (46-116); BUN 21 mg/dL (7-18); Bilirubin, Total 0.3 mg/dL (0.2-1.0); CREATININE 0.6 mg/dL (0.55-1.02); Calcium 9.2 mg/dL (8.5-10.1); Chloride 104 mmol/L (98-107); Glucose 112 mg/dL (74-106); Potassium 4.3 mmol/L (3.5-5.1); Sodium 139 mmol/L (136-145); Total Protein 7.5 g/dL (6.4-8.2); Troponin I < 50 ng/L (<or=60)
[2021-08-08 13:15] LABS: Magnesium 1.9 mg/dL (1.8-2.4); NT-proBNP 99 pg/mL (<300)
[2021-08-08 13:27] LABS: COVID-19 PCR Negative (Negative)
[2021-08-08 13:30] LABS: D-Dimer 419 ng/mlFEU (<500)
[2021-08-08] MEDS: Albuterol/Ipratropium 3 ML UPD VIAL UPD (13:43)
== END 2021-08-08 15:37 | disposition home or self-care (01) ==
PROVIDERS: Emergency Provider Physician Assistant; PCP Nurse Practitioner Family
DX: R05.1 Acute cough (principal); R06.02 Shortness of breath; Z20.822 Contact with and (suspected) exposure to COVID-19; Z86.16 Personal history of COVID-19
CPT/HCPCS: 36415; 80053; 87635; 93005; 94640; 99284; 71045; 83735; 83880; 84484; 85025; 85379; 93010; J7620

== ENCOUNTER 2021-08-22 06:40 | Emergency (ER) | payer MEDICARE, MEDICAID, SELFPAY ==
[2021-08-22] VITALS (23 sets, daily range): BP systolic 102–143; BP diastolic 40–105; PULSE 69–85; RESP 4–23; TEMP 36.5; O2SAT 95–100
--- NOTE | 2021-08-22 06:30 | DI.RAD_ITS ---
Exam(s) XR PORTABLE CHEST AP EXAM: XR PORTABLE CHEST AP CLINICAL HISTORY: cough, ronchi, r/o pneumonia. TECHNIQUE: 2D digital imaging was performed. COMPARISON: CR XR PORTABLE CHEST AP from 08/08/2021 FINDINGS: Heart size is upper normal. The mediastinum is not widened. Lungs are clear. No infiltrates nor obvious pleural effusions. IMPRESSION: No acute pulmonary findings on this single AP portable view of the chest. DATA REPOSITORY: RADIATION DOSE DELIVERED: All CT scans at this facility use at least one of these dose optimization techniques: automated exposure control; mA and/or kV adjustment per patient size (includes targeted e xams where dose is matched to clinical indication); or iterative reconstruction.
--- NOTE | 2021-08-22 06:30 | RT.EKG_ITS ---
APPROVED REPORT Exam: Resting ECG Reason for Exam: sob Patient Location: E HR:77 bpm ECG Measurements Heart Rate 77 AXIS NE 185 P 74 QRSd 71 QRS 11 QT 393 T 61 QTc 444 Conclusion Sinus rhythm...normal P axis, V-rate 60- 99 Low voltage, precordial leads...precordial leads <1.0mV Physician: Rate 77, sinus rhythm, no significant ST elevation or depression. Inverted T waves noted in V1. No changes from prior EKG on 08/08/2021
--- NOTE | 2021-08-22 06:45 | W.ED.GENAD ---
Discharge Plan Disposition Patient Disposition: HOME Condition: Improving Discharge Details Clinical Impression: Wheezing, COPD exacerbation Primary Care Provider: Sebastián Stephens ED Provider: Wiley Giron Home Meds and New Rx's Prescriptions: New albuterol sulfate 90 mcg/actuation aerosol powdr breath activated 2 inh inhalation Q4H PRNQty: 1 0RF Stiolto Respimat 2.5-2.5 mcg/actuation mist 2 puff inhalation DAILY Qty: 4 0RF Continued lactulose 10 gram/15 mL solution 15 ml PO DAILY 0RF quetiapine 100 mg tablet 150 mg PO HS 0RF (DME) 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 See Rx Instructions .ROUTE .MEDSUPPLY Qty: 1 0RF Rx Instructions: As directed glyburide-metformin 1 EACH tablet 500 tab-cap PO BID 0RF albuterol sulfate [ProAir HFA] 8.5 GM HFA aerosol inhaler 1 puff Inhalation Q4H PRN 0RF pantoprazole 40 MG tablet,delayed release (DR/EC) 40 mg PO DAILY 0RF docusate sodium [Colace] 100 mg capsule 100 mg PO BID Qty: 100 0RF benzonatate 200 mg capsule 200 mg PO BID-TID PRN (Reason: cough) Qty: 20 0RF guaifenesin [Mucinex] 600 mg tablet extended release 12hr 600 mg PO Q12H PRNQty: 10 0RF simvastatin 40 MG tablet 40 mg PO HS 0RF calcium carbonate-vitamin D3 1 EACH tablet 1 ea PO BID 0RF magnesium oxide 400 mg magnesium Capsule 400 mg PO BID 0RF losartan 50 mg tablet 50 mg PO DAILY 0RF Label Comments: TAKE ONE TABLET BY MOUTH EVERY DAY Stiolto Respimat 2.5-2.5 mcg/actuation mist 2 puff INHALATION DAILY 0RF Label Comments: INHALE 2 PUFFS BY MOUTH ONCE DAILY propranolol 40 mg tablet 40 mg PO BID 0RF Label Comments: TAKE ONE TABLET BY MOUTH TWICE A DAY Discharge Instructions Instructions: COPD (Chronic Obstructive Pulmonary Disease) (ED), Wheezing (ED) Additional Instructions: Please be seen by your primary care physician. Return to the emergency department for any worsening symptoms Medical Decision Making <Hal Olmstead DO - Last Filed: 08/22/21 06:51> 71-year-old female with a past medical history of hypertension, high cholesterol, learning disability, asthma/COPD, GERD, presents today for evaluation of cough shortness of breath. Patient states that for the last 2 weeks she has had a mild dry cough which is gradually been worsening. Over the last few days she has had subjective short of breath. She denies any significant productivity with the cough. She has been using her home inhalers which initially were helping but is not so beneficial now. She denies fever or chills. She denies any chest pain. She does admit to mild chest tightness with cough. She denies any previous blood clots. She denies any recent long trips, surgeries or procedures. Due to shortness of breath and cough this morning she did call EMS, she was saturating at 99% on room air. They did give her a nebulizer treatment the patient had some mild improvement of her symptoms with this. She denies any arm neck or shoulder pain. She denies any tearing or ripping sensation. No other complaints time. No other modifying factors. Physical exam demonstrates diffuse wheezes and rhonchi with scattered crackles throughout her lung landers. No calf tenderness. Heart rate stable. Oxygenation excellent on room air. Suspect mild COPD exacerbation, with potential underlying pneumonia as well. We will get an x-ray, DuoNeb, give steroids, monitor closely and reassess. Screening EKG shows no evidence of STEMI. Symptoms clinically inconsistent with ACS. EKG 6: 45 Rate 77, sinus rhythm, no significant ST elevation or depression. Inverted T waves noted in V1. No changes from prior EKG on 08/08/2021 <Wiley Giron MD - Last Filed: 08/22/21 09:16> 71-year-old female with a past medical history of hypertension, high cholesterol, learning disability, asthma/COPD, GERD, presents today for evaluation of cough shortness of breath. Patient states that for the last 2 weeks she has had a mild dry cough which is gradually been worsening. Over the last few days she has had subjective short of breath. She denies any significant productivity with the cough. She has been using her home inhalers which initially were helping but is not so beneficial now. She denies fever or chills. She denies any chest pain. She does admit to mild chest tightness with cough. She denies any previous blood clots. She denies any recent long trips, surgeries or procedures. Due to shortness of breath and cough this morning she did call EMS, she was saturating at 99% on room air. They did give her a nebulizer treatment the patient had some mild improvement of her symptoms with this. She denies any arm neck or shoulder pain. She denies any tearing or ripping sensation. No other complaints time. No other modifying factors. Physical exam demonstrates diffuse wheezes and rhonchi with scattered crackles throughout her lung landers. No calf tenderness. Heart rate stable. Oxygenation excellent on room air. Suspect mild COPD exacerbation, with potential underlying pneumonia as well. We will get an x-ray, DuoNeb, give steroids, monitor closely and reassess. Screening EKG shows no evidence of STEMI. Symptoms clinically inconsistent with ACS. EKG 6: 45 Rate 77, sinus rhythm, no significant ST elevation or depression. Inverted T waves noted in V1. No changes from prior EKG on 08/08/2021 09: 08 had mild anterior wheezing bilaterally however no tachypnea no respiratory distress no retractions, a another DuoNeb was added, patient resting comfortably saturating 98% on room air, likely mild COPD exacerbation, will refill patient's inhaler for home. Home care instructions and return precautions given. No evidence of pneumonia on x-ray. Viral swab negative HPI <Hal Olmstead, - Last Filed: 08/22/21 06:51> General Date/Time Provider Initiated Documentation: 08/22/21 06:47. HPI Narrative: 71-year-old female with a past medical history of hypertension, high cholesterol, learning disability, asthma/COPD, GERD, presents today for evaluation of cough shortness of breath. Patient states that for the last 2 weeks she has had a mild dry cough which is gradually been worsening. Over the last few days she has had subjective short of breath. She denies any significant productivity with the cough. She has been using her home inhalers which initially were helping but is not so beneficial now. She denies fever or chills. She denies any chest pain. She does admit to mild chest tightness with cough. She denies any previous blood clots. She denies any recent long trips, surgeries or procedures. Due to shortness of breath and cough this morning she did call EMS, she was saturating at 99% on room air. They did give her a nebulizer treatment the patient had some mild improvement of her symptoms with this. She denies any arm neck or shoulder pain. She denies any tearing or ripping sensation. No other complaints time. No other modifying factors. Related Data Home Medications Medication Instructions Recorded Confirmed pantoprazole 40 mg tablet,delayed 40 mg PO DAILY 02/20/13 08/22/21 release albuterol sulfate 90 mcg/actuation 1 puff INHALATION Q4H PRN inhaler 09/22/16 08/22/21 aerosol inhaler (ProAir HFA) glyburide 5 mg-metformin 500 mg 500 tab-cap PO BID tab-cap 09/22/16 08/22/21 tablet calcium carbonate 600 mg-vitamin 1 ea PO BID 10/10/17 08/22/21 D3 10 mcg (400 unit) tablet simvastatin 40 mg tablet 40 mg PO HS 10/10/17 08/22/21 magnesium oxide 400 mg PO BID 07/23/19 08/22/21 docusate sodium 100 mg capsule 100 mg PO BID #100 cap 04/06/20 06/28/21 (Colace) lactulose 10 gram/15 mL oral 15 ml PO DAILY 10/18/20 06/28/21 solution quetiapine 100 mg tablet 150 mg PO HS tab 10/18/20 08/22/21 losartan 50 mg tablet 50 mg PO DAILY 11/04/20 08/22/21 tiotropium 2.5 mcg-olodaterol 2.5 2 puff INHALATION DAILY 11/04/20 08/22/21 mcg/actuation mist for inhalation (Stiolto Respimat) inhalational spacing device #1 ea 06/17/21 06/17/21 (Aerochamber MV) benzonatate 200 mg capsule 200 mg PO BID-TID PRN #20 cap 06/28/21 08/22/21 guaifenesin 600 mg tablet, 600 mg PO Q12H PRN #10 tab 06/28/21 extended release 12 hr (Mucinex) albuterol sulfate 90 mcg/actuation 2 inh INHALATION Q4H PRN #1 ea 08/22/21 breath activated powder inhaler propranolol 40 mg tablet 40 mg PO BID 08/22/21 08/22/21 tiotropium 2.5 mcg-olodaterol 2.5 2 puff INHALATION DAILY #4 g 08/22/21 mcg/actuation mist for inhalation (Stiolto Respimat) Previous Rx's Medication Instructions Recorded docusate sodium 100 mg capsule 100 mg PO BID #100 cap 04/06/20 (Colace) inhalational spacing device #1 ea 06/17/21 (Aerochamber MV) benzonatate 200 mg capsule 200 mg PO BID-TID PRN #20 cap 06/28/21 guaifenesin 600 mg tablet, 600 mg PO Q12H PRN #10 tab 06/28/21 extended release 12 hr (Mucinex) albuterol sulfate 90 mcg/actuation 2 inh INHALATION Q4H PRN #1 ea 08/22/21 breath activated powder inhaler tiotropium 2.5 mcg-olodaterol 2.5 2 puff INHALATION DAILY #4 g 08/22/21 mcg/actuation mist for inhalation (Stiolto Respimat) Allergies Allergy/AdvReac Type Severity Reaction Status Date / Time thiopental sodium Allergy Skin Rash Unverified 06/28/21 13:01 [From Pentothal] General Stated Complaint: SOB LYNNETTE: 3 Review of Systems <Hal Olmstead DO - Last Filed: 08/22/21 06:51> All systems reviewed & are unremarkable except as noted in HPI and below PFSH <Hal Olmstead DO - Last Filed: 08/22/21 06:51> All Active Problems (Updated 08/22/21 @ 09:10 by Wiley Giron MD) Wheezing (Acute) COPD exacerbation (Acute) Illiterate (Chronic) able to manage independently Dry cough (Chronic) asking for humidifier Fall (Acute) CHI (closed head injury) (Acute) Shortness of breath (Acute) COVID-19 (Acute) with persistent cough Transient leg weakness (Acute) Bronchospasm (Acute) Right anterior knee pain (Chronic) Atypical chest pain (Acute) Palliative care status (Chronic) Lives alone with help available (Chronic) NO DPOA yet; ? state guardian? Financial difficulties (Chronic) Hair loss (Chronic) Constipation (Chronic) takes lactulose to tx Encounter for screening colonoscopy (Acute) Social isolation (Chronic) Chronic low back pain (Acute) DNI (do not intubate) (Chronic) DNR (do not resuscitate) (Chronic) Goals of care, counseling/discussion (Acute) Palliative care patient (Chronic) Learning disability (Chronic) manages her own medications GERD (gastroesophageal reflux disease) (Chronic) Diverticulosis (Acute) Sleep disorder (Acute) Anxiety (Chronic) COPD (chronic obstructive pulmonary disease) (Chronic) Vertigo (Acute) Onychomycosis (Acute) Carpal tunnel syndrome (Acute) Leukocytosis (leucocytosis) (Acute) Anemia (Chronic) Hypomagnesemia (Acute) Eczema (Acute) Benign essential tremor (Acute) Diabetes mellitus (Chronic) Neoplasm of skin (Acute 12/29/13) Mixed stress and urge urinary incontinence (Acute 09/22/16) Hyperlipidemia (Acute 04/02/13) Urinary, incontinence, stress female (Acute 04/02/13) Essential hypertension (Acute 04/02/13) Depression (Acute 04/02/13) Cyst of ovary (Acute 03/12/13) 02/26/13 L ovary [id number], R ovary [id number]. Not complex. Cerumen impaction (Acute 12/29/13) Asthma (Acute 04/02/13) Cyst of ovary (Acute) Laparoscopic bilateral salpingo-oophorectomy on 04-09-[address]Anne Medina. Path pending. Medical History Colonoscopy planned Diverticulitis of large intestine HTN (hypertension) Hypercholesterolemia Learning disability Restless legs takes Premapaxil Surgical History bladder suspension for incontinence Abdominal hysterectomy (~1979) for heavy bleeding. Arthroplasty of knee L knee Dr Fuentes Cholecystectomy laparoscopic 03/2011 Extraction of cataract in [place] History of colonoscopy (~07/24/19) Oophrectomy, Both (04/09/13) laparotomy. aoc and kk. Family History Sister Heart disease Son Parent-child estrangement nec Under care of care home service life sentence for murder Daughter Parent-child estrangement nec Substance abuse Social History Smoking/Tobacco Use Status: Former Tobacco Use tobacco type: cigarettes Tobacco: How many years used: 40 Smoking risk assessment performed?: Yes Alcohol Intake: former Drug use: Never Substance use type: does not use Caregiver/Support person: No Household members: none Housing: apartment Number of Children: 0 Communication Needs: Cannot Read Education Level: middle school Details: finished 6th grade only Do you need help understanding health information?: Always current occupation: always disabled; worked as [employer] for 5 years in her late teens, early 20s Pets and animals: No What is your relationship status?: How often do you talk on the phone with friends or family?: never How often do you get together with friends or relatives?: never Panel score (0-1 are the most socially isolated patients): 0 What type of physical activity do you participate in: walking and irregular exercise Duration: < 15 minutes/day Frequency: 1-2 times per week Special pankaj needs: No Agree to transfusion: Yes Seatbelt use: always Drive intox or ride w/intox regional dedicated truck driver: No Water heater temp set <120 deg: Yes Working smoke detector in home: Yes Firearms in home: No Do you feel safe at home: Yes Do you feel safe in your relationship?: Yes Additional Social history: she was very briefly in her teens was with Praneeth Cee for 15 years; he in 2016, she thinks, from colon cancer, bled out. Estranged from both her children, no family, no DPOA. Daughter with SA; her children taken from her. Son incarcerated for life. Exam <Hal Olmstead DO - Last Filed: 08/22/21 06:51> Narrative Exam Narrative: 1.Const: Well-nourished, Well-developed, appearing stated age 2.Eyes: PERRL, no conjunctival injection, and symmetrical lids. 3.ENT: Atraumatic external nose and ears. Moist MM. Neck: Symmetric, trachea midline, No thyromegaly. 4.CVS: +S1/S2, No murmurs or gallops. Peripheral pulses 2+ and equal in all extremities. Brisk capillary refill in all extremities. 5.RESP: Unlabored respiratory effort. Diffuse wheezes and rhonchi throughout. Minimal crackles scattered throughout. 6.GI: Soft, Nontender/Nondistended, No hepatosplenomegaly. No guarding or rebound. 7.MSK: Normocephalic/Atraumatic, Extremities w/o deformity or ttp No cyanosis or clubbing, Normal movement of all extremities, no pitting edema. No calf tenderness. 8.Skin: Warm, Dry. No rashes or lesions. 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 Sensation grossly intact, no focal neurologic deficits. 10.Psych: (AAO) x3. Appropriate mood and affect Course <Hal Olmstead DO - Last Filed: 08/22/21 06:51> Vital Signs Vital signs: Vital Signs Temperature 36.5 C 08/22/21 06:41 Pulse 80 08/22/21 06:41 Respiratory Rate 23 08/22/21 06:41 Blood Pressure 135/105 H 08/22/21 06:41 Pulse Oximetry 100 08/22/21 06:41 Temperature 36.5 C 08/22/21 06:41 Temperature Source Oral 08/22/21 06:41 Pulse 80 08/22/21 06:41 Respiratory Rate 23 08/22/21 06:41 Blood Pressure 135/105 H 08/22/21 06:41 Blood Pressure Position Supine 08/22/21 06:41 Pulse Oximetry 100 08/22/21 06:41 Oxygen Delivery Method Room Air 08/22/21 06:41 Oxygen Flow Rate 0 08/22/21 06:41 Sign Out <Hal Olmstead DO - Last Filed: 08/22/21 06:51> Sign Out Data: Sign Out Comment: Cough for 2 weeks, wheezes and rhonchi scattered crackles. Oxygenation stable though. Giving duo nebs, chest x-ray and reassessing. Suspect mild pneumonia. Last updated by Hal Olmstead DO at 08/22/21 07:12
[2021-08-22] MEDS: Albuterol/Ipratropium 3 ML UPD VIAL 6 ML UPD (06:55)
[2021-08-22] MEDS: methylPREDNISolone SUCC 125 MG VIAL IVP (06:56)
[2021-08-22 06:59] LABS: BE (Venous) 2 mmol/L (-2-3); HCO3 (Venous) 28 mmol/L (23-28); O2 Sat (Venous) 67 %; TCO2 (Venous) 26 mmol/L (24-29); pCO2 (Venous) 47 mmHg (41-51); pH (Venous) 7.37 (7.31-7.41); pO2 (Venous) 37 mmHg
[2021-08-22 07:02] LABS: Abs Immature Grans 0.05 10^3/uL (0.0-0.06); Absolute Basophil Count 0.11 10^3/uL (0.0-0.2); Absolute Eosinophil Count 0.84 10^3/uL (0.0-0.7); Absolute Lymphocyte Count 3.62 10^3/uL (1.2-3.4); Basophils % 0.9; Eosinophils % 6.7; HCT 32.6 % (36.0-46.0); HGB 9.7 g/dL (11.2-15.7); Immature Grans % 0.4; Lymphocytes % 28.8; MCH 21.9 pg (27.0-33.0); MCHC 29.8 % (32.0-36.0); MCV 73.8 fL (80-95); Monocytes % 7.2; Nucleated RBC 0 %; Platelet Count 283 10^3/uL (130-400); RBC 4.42 10^6/uL (3.93-5.22); RDW 16.1 % (11.7-14.6); RDW-SD 43.5 fL; WBC 12.58 10^3/uL (4.4-10.8)
[2021-08-22 07:04] LABS: Absolute Monocyte Count 0.91 10^3/uL (0.1-0.8); Absolute Neutrophil Count 7.04 10^3/uL (1.2-6.7)
[2021-08-22 07:18] LABS: ALT 25 U/L (14-59); AST 19 U/L (15-37); Albumin 3.6 g/dL (3.4-5.0); Alkaline Phosphatase 91 U/L (46-116); Anion Gap 8.5 mmol/L (3-11); BUN 14 mg/dL (7-18); Bilirubin, Total 0.4 mg/dL (0.2-1.0); CO2 27.5 mmol/L (21.0-32.0); CREATININE 0.8 mg/dL (0.55-1.02); Calcium 9.1 mg/dL (8.5-10.1); Chloride 104 mmol/L (98-107); Glucose 129 mg/dL (74-106); Potassium 4.1 mmol/L (3.5-5.1); Sodium 140 mmol/L (136-145); Total Protein 7.3 g/dL (6.4-8.2); Troponin I < 50 ng/L (<or=60)
[2021-08-22 07:54] LABS: COVID-19 PCR Negative (Negative); Influenza A PCR Negative (Negative); Influenza B PCR Negative (Negative); RSV PCR Negative (Negative)
[2021-08-22 07:58] LABS: Source Nasopharynx
[2021-08-22] MEDS: Albuterol/Ipratropium 3 ML UPD VIAL (08:46)
== END 2021-08-22 09:28 | disposition home or self-care (01) ==
PROVIDERS: Student in an Organized Health Care Education/Training Program; Emergency Provider Emergency Medicine; PCP Nurse Practitioner Family
DX: J44.1 Chronic obstructive pulmonary disease with (acute) exacerbation (principal); R06.2 Wheezing; R06.02 Shortness of breath; R05.1 Acute cough
CPT/HCPCS: 80053; 82805; 87637; 93005; 94640; 96374; 99284; 71045; 84484; 85025; 93010; J2930; J7620

== ENCOUNTER 2021-08-27 07:07 | Emergency (ER) | payer MEDICARE, MEDICAID, SELFPAY ==
--- NOTE | 2021-08-27 07:09 | ED.GENADUL_ITS ---
Discharge Plan Disposition Patient Disposition: HOME Condition: Improving Discharge Details Clinical Impression: Abdominal pain, Colon abnormality Primary Care Provider: Sebastián Stephens ED Provider: Wiley Giron Home Meds and New Rx's Prescriptions: Continued lactulose 10 gram/15 mL solution 15 ml PO DAILY 0RF quetiapine 100 mg tablet 150 mg PO HS 0RF (DME) 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 See Rx Instructions .ROUTE .MEDSUPPLY Qty: 1 0RF Rx Instructions: As directed glyburide-metformin 1 EACH tablet 500 tab-cap PO BID 0RF albuterol sulfate [ProAir HFA] 8.5 GM HFA aerosol inhaler 1 puff Inhalation Q4H PRN 0RF pantoprazole 40 MG tablet,delayed release (DR/EC) 40 mg PO DAILY 0RF docusate sodium [Colace] 100 mg capsule 100 mg PO BID Qty: 100 0RF benzonatate 200 mg capsule 200 mg PO BID-TID PRN (Reason: cough) Qty: 20 0RF guaifenesin [Mucinex] 600 mg tablet extended release 12hr 600 mg PO Q12H PRNQty: 10 0RF simvastatin 40 MG tablet 40 mg PO HS 0RF calcium carbonate-vitamin D3 1 EACH tablet 1 ea PO BID 0RF magnesium oxide 400 mg magnesium Capsule 400 mg PO BID 0RF losartan 50 mg tablet 50 mg PO DAILY 0RF Label Comments: TAKE ONE TABLET BY MOUTH EVERY DAY propranolol 40 mg tablet 40 mg PO BID 0RF Label Comments: TAKE ONE TABLET BY MOUTH TWICE A DAY albuterol sulfate 90 mcg/actuation aerosol powdr breath activated 2 inh inhalation Q4H PRNQty: 1 0RF Stiolto Respimat 2.5-2.5 mcg/actuation mist 2 puff inhalation DAILY Qty: 4 0RF Discharge Instructions Instructions: Abdominal Pain (ED) Additional Instructions: Please follow-up with your primary care physician. Discussed the findings with your CAT scan that shows colon thickening in the rectosigmoid region, this may require further evaluation with colonoscopy. Return to emerge department for worsening abdominal pain nausea vomiting diarrhea blood or mucus in her stool or inability to tolerate food. Referrals: Josephine Bach [Emergency Nurse] - 1 week (next week) Medical Decision Making <Aj Truong MD - Last Filed: 08/27/21 07:17> 71 yo female with multiple medical probems comes in with ems with complaints of abdominal pain since yesterday along with diarrhea. She states the symptoms started yesterday and localizes the discomfort to the upper abdomen. Denies vomit but has had nausea. No fevers, chest pain, and states dyspnea she was here for a few days ago has resolved. She is in no distress on exam. When not being palpated she denies pain but on abdominal exam she is tender to both the ruq and luq, per chart review has had cholecystectomy and hysterectomy. Given the pain and nausea will obtain labs to evaluate for hepatitis, pancreatitis and ct to evaluate for possible sbo [facility] pending lab and imaging results and reassessment Medical Records Medical records reviewed: Yes I reviewed the patient's medical records. Lab Data Lab results reviewed: Yes I reviewed the patient's lab results. <Wiley Giron MD - Last Filed: 08/27/21 09:57> 71 yo female with multiple medical probems comes in with ems with complaints of abdominal pain since yesterday along with diarrhea. She states the symptoms started yesterday and localizes the discomfort to the upper abdomen. Denies vomit but has had nausea. No fevers, chest pain, and states dyspnea she was here for a few days ago has resolved. She is in no distress on exam. When not being palpated she denies pain but on abdominal exam she is tender to both the ruq and luq, per chart review has had cholecystectomy and hysterectomy. Given the pain and nausea will obtain labs to evaluate for hepatitis, pancreatitis and ct to evaluate for possible sbo patient [facility] pending lab and imaging results and reassessment 09: 33 Received signout from night physician. Patient is pending CT scan, CT showing colonic wall thickening at rectosigmoid region consider possible mild colitis. Patient asymptomatic at this point. Constipation that she will need to follow- up with her primary care and may need a colonoscopy in the future. No acute distress vital stable. HPI <Aj Truong MD - Last Filed: 08/27/21 07:17> General Mode of arrival: EMS . Date/Time Provider Initiated Documentation: 08/27/21 07:09 . Limitations to Documentation: no limitations . Information obtained by: patient . History of Present Illness 71 year old F presents to the emergency department with the chief complaint of abdominal pain, described as moderate, Quality is described as stabbing and aching, and is localized to the abdomen. Patient reports no radiation. Patient started experiencing this day(s) (1) and it has been constant. improves with No relieving factors improve symptom(s), No exacerbating factors reported . Patient notes other (diarrhea). Related Data Home Medications Medication Instructions Recorded Confirmed pantoprazole 40 mg tablet,delayed 40 mg PO DAILY 02/20/13 08/27/21 release albuterol sulfate 90 mcg/actuation 1 puff INHALATION Q4H PRN inhaler 09/22/16 08/27/21 aerosol inhaler (ProAir HFA) glyburide 5 mg-metformin 500 mg 500 tab-cap PO BID tab-cap 09/22/16 08/27/21 tablet calcium carbonate 600 mg-vitamin 1 ea PO BID 10/10/17 08/27/21 D3 10 mcg (400 unit) tablet simvastatin 40 mg tablet 40 mg PO HS 10/10/17 08/27/21 magnesium oxide 400 mg PO BID 07/23/19 08/27/21 docusate sodium 100 mg capsule 100 mg PO BID #100 cap 04/06/20 08/27/21 (Colace) lactulose 10 gram/15 mL oral 15 ml PO DAILY 10/18/20 08/27/21 solution quetiapine 100 mg tablet 150 mg PO HS tab 10/18/20 08/27/21 losartan 50 mg tablet 50 mg PO DAILY 11/04/20 08/27/21 inhalational spacing device #1 ea 06/17/21 06/17/21 (Aerochamber MV) benzonatate 200 mg capsule 200 mg PO BID-TID PRN #20 cap 06/28/21 08/27/21 guaifenesin 600 mg tablet, 600 mg PO Q12H PRN #10 tab 06/28/21 08/27/21 extended release 12 hr (Mucinex) albuterol sulfate 90 mcg/actuation 2 inh INHALATION Q4H PRN #1 ea 08/22/21 08/27/21 breath activated powder inhaler propranolol 40 mg tablet 40 mg PO BID 08/22/21 08/27/21 tiotropium 2.5 mcg-olodaterol 2.5 2 puff INHALATION DAILY #4 g 08/22/21 08/27/21 mcg/actuation mist for inhalation (Stiolto Respimat) Previous Rx's Medication Instructions Recorded docusate sodium 100 mg capsule 100 mg PO BID #100 cap 04/06/20 (Colace) inhalational spacing device #1 ea 06/17/21 (Aerochamber MV) benzonatate 200 mg capsule 200 mg PO BID-TID PRN #20 cap 06/28/21 guaifenesin 600 mg tablet, 600 mg PO Q12H PRN #10 tab 06/28/21 extended release 12 hr (Mucinex) albuterol sulfate 90 mcg/actuation 2 inh INHALATION Q4H PRN #1 ea 08/22/21 breath activated powder inhaler tiotropium 2.5 mcg-olodaterol 2.5 2 puff INHALATION DAILY #4 g 08/22/21 mcg/actuation mist for inhalation (Stiolto Respimat) Allergies Allergy/AdvReac Type Severity Reaction Status Date / Time thiopental sodium Allergy Skin Rash Unverified 08/27/21 07:39 [From [facility]] General LYNNETTE: 3 Review of Systems <Aj Truong MD - Last Filed: 08/27/21 07:17> All systems reviewed & are unremarkable except as noted in HPI and below Constitutional Constitutional: Denies chills, Denies fever(s) and Denies weakness Cardiovascular Cardiovascular: Denies chest pain and Denies dyspnea Respiratory Respiratory: Denies cough and Denies dyspnea Gastrointestinal Gastrointestinal: Denies vomiting Genitourinary Genitourinary: Denies dysuria Musculoskeletal Musculoskeletal: Denies joint swelling Integumentary/Breasts Skin/Breast: Denies rash Neurologic Neurologic: Denies weakness [facility] <Aj Truong MD - Last Filed: 08/27/21 07:17> All Active Problems (Updated 08/27/21 @ 09:55 by Wiley Giron MD) Wheezing (Acute) COPD exacerbation (Acute) Abdominal pain (Acute) Colon abnormality (Acute) Illiterate (Chronic) able to manage independently Dry cough (Chronic) asking for humidifier Fall (Acute) CHI (closed head injury) (Acute) Shortness of breath (Acute) COVID-19 (Acute) with persistent cough Transient leg weakness (Acute) Bronchospasm (Acute) Right anterior knee pain (Chronic) Atypical chest pain (Acute) Palliative care status (Chronic) Lives alone with help available (Chronic) NO DPOA yet; ? state guardian? Financial difficulties (Chronic) Hair loss (Chronic) Constipation (Chronic) takes lactulose to tx Encounter for screening colonoscopy (Acute) Social isolation (Chronic) Chronic low back pain (Acute) DNI (do not intubate) (Chronic) DNR (do not resuscitate) (Chronic) Goals of care, counseling/discussion (Acute) Palliative care patient (Chronic) Learning disability (Chronic) manages her own medications GERD (gastroesophageal reflux disease) (Chronic) Diverticulosis (Acute) Sleep disorder (Acute) Anxiety (Chronic) COPD (chronic obstructive pulmonary disease) (Chronic) Vertigo (Acute) Onychomycosis (Acute) Carpal tunnel syndrome (Acute) Leukocytosis (leucocytosis) (Acute) Anemia (Chronic) Hypomagnesemia (Acute) Eczema (Acute) Benign essential tremor (Acute) Diabetes mellitus (Chronic) Neoplasm of skin (Acute 12/29/13) Mixed stress and urge urinary incontinence (Acute 09/22/16) Hyperlipidemia (Acute 04/02/13) Urinary, incontinence, stress female (Acute 04/02/13) Essential hypertension (Acute 04/02/13) Depression (Acute 04/02/13) Cyst of ovary (Acute 03/12/13) 02/26/13 L ovary [id number], R ovary [id number]. Not complex. Cerumen impaction (Acute 12/29/13) Asthma (Acute 04/02/13) Cyst of ovary (Acute) Laparoscopic bilateral salpingo-oophorectomy on 04-09-[address]Anne Medina. Path pending. Medical History Colonoscopy planned Diverticulitis of large intestine HTN (hypertension) Hypercholesterolemia Learning disability Restless legs takes Premapaxil Surgical History bladder suspension for incontinence Abdominal hysterectomy (~1979) for heavy bleeding. Arthroplasty of knee L knee Dr Fuentes Cholecystectomy laparoscopic 03/2011 Extraction of cataract in [place] History of colonoscopy (~07/24/19) Oophrectomy, Both (04/09/13) laparotomy. aoc and kk. Family History Sister Heart disease Son Parent-child estrangement nec Under care of nursing home service life sentence for murder Daughter Parent-child estrangement nec Substance abuse Social History Smoking/Tobacco Use Status: Former Tobacco Use tobacco type: cigarettes Tobacco: How many years used: 40 Smoking risk assessment performed?: Yes Alcohol Intake: former Drug use: Never Substance use type: does not use Caregiver/Support person: No Household members: none Housing: apartment Number of Children: 0 Communication Needs: Cannot Read Education Level: middle school Details: finished 6th grade only Do you need help understanding health information?: Always current occupation: always disabled; worked as [employer] for 5 years in her late teens, early 20s Pets and animals: No What is your relationship status?: How often do you talk on the phone with friends or family?: never How often do you get together with friends or relatives?: never Panel score (0-1 are the most socially isolated patients): 0 What type of physical activity do you participate in: walking and irregular exercise Duration: < 15 minutes/day Frequency: 1-2 times per week Special pankaj needs: No Agree to transfusion: Yes Seatbelt use: always Drive intox or ride w/intox pile driver operator: No Water heater temp set <120 deg: Yes Working smoke detector in home: Yes Firearms in home: No Do you feel safe at home: Yes Do you feel safe in your relationship?: Yes Additional Social history: she was very briefly in her teens was with Praneeth Cee for 15 years; he in 2016, she thinks, from colon cancer, bled out. Estranged from both her children, no family, no DPOA. Daughter with SA; her children taken from her. Son incarcerated for life. Exam <Aj Truong MD - Last Filed: 08/27/21 07:17> Const General: no acute distress Orientation: alert [facility] Head: normal to inspection Ears: external ears normal General nose exam: external nose normal Mouth: moist mucous membranes Eyes General: appearance normal, both eyes and all related structures Neck Neck: normal visual inspection Resp Effort & Inspection: normal respiratory effort and able to speak in complete sentences Cardio Rate: regular rate GI Palpation: soft and tender Skin General skin exam: no rashes or lesions noted Neuro General: patient alert and patient oriented x3 Extrem General: normal to inspection Sign Out <Aj Truong MD - Last Filed: 08/27/21 07:17> Sign Out Data: Sign Out Comment: 1 day nausea and diarrhea and upper abdomen discomfort, pending labs, ct and reassessment Last updated by Aj Truong MD at 08/27/21 07:18
[2021-08-27 07:11] VITALS: BP 136/90; PULSE 84; RESP 118; TEMP 36.8; O2SAT 98
[2021-08-27] MEDS: Normal Saline 1,000 ML 1000 ML IV (07:28)
[2021-08-27 07:29] LABS: Abs Immature Grans 0.07 10^3/uL (0.0-0.06); Absolute Basophil Count 0.08 10^3/uL (0.0-0.2); Absolute Eosinophil Count 0.88 10^3/uL (0.0-0.7); Absolute Monocyte Count 0.96 10^3/uL (0.1-0.8); Basophils % 0.6; Eosinophils % 6.8; HCT 31.6 % (36.0-46.0); HGB 9.6 g/dL (11.2-15.7); Immature Grans % 0.5; Lymphocytes % 21.9; MCH 22.2 pg (27.0-33.0); MCHC 30.4 % (32.0-36.0); Monocytes % 7.4; Neutrophils % 62.8; Nucleated RBC 0 %; Platelet Count 274 10^3/uL (130-400); RBC 4.33 10^6/uL (3.93-5.22); RDW-SD 41.8 fL; WBC 12.99 10^3/uL (4.4-10.8)
[2021-08-27] MEDS: Normal Saline Flush 10 ML SYR IVP ×2 (07:29→08:49)
[2021-08-27] MEDS: Ondansetron 4 MG/2 ML VIAL IVP (07:29)
[2021-08-27 07:30] LABS: Absolute Lymphocyte Count 2.84 10^3/uL (1.2-3.4); Absolute Neutrophil Count 8.16 10^3/uL (1.2-6.7); BE (Venous) 2 mmol/L (-2-3); HCO3 (Venous) 27 mmol/L (23-28); O2 Sat (Venous) 64 %; TCO2 (Venous) 26 mmol/L (24-29); pCO2 (Venous) 44 mmHg (41-51); pO2 (Venous) 34 mmHg
--- NOTE | 2021-08-27 07:30 | DI.CT_ITS ---
Exam(s) CT ABDOMEN PELVIS W EXAM: CT ABDOMEN PELVIS W CLINICAL HISTORY: upper abdomen pain, nausea TECHNIQUE: Imaging Protocol: Axial computed tomography images with coronal and sagittal reformatted images were created and reviewed CONTRAST MATERIAL: Intravenous: Omnipaque 350 Contrast volume:100 mL Oral: No COMPARISON: CT CT ABDOMEN PELVIS W from 07/01/[address] CHEST PE CTA from 04/21/2021 FINDINGS: The examination is limited due to patient motion artifact. ABDOMEN: Lung Bases: Normal where visualized. Liver: Fatty infiltration of the liver. No measurable mass. Portal, Superior Mesenteric, and Splenic Veins: Unremarkable. Gallbladder and Biliary Tract: Status post cholecystectomy. No biliary ductal dilatation. Pancreas: Normal density, no abnormal calcifications or inflammatory process. Spleen: Normal. Adrenals: No change in appearance of the adrenal glands. Kidneys: Normal size, contour and axis. No radiodense stones or obstructive uropathy. Stable renal cy sts. Stable left renal cortical calcification. Abdominal Aorta: Abdominal portion non-dilated. Atherosclerosis. Bowel: No evidence of obstruction. There is focal thickening of the wall of the rectosigmoid colon. (Series 3, image 68). This lies just superior to the urinary bladder. No definite pericolonic infl ammatory stranding is seen. No evidence of appendicitis. Diverticulosis of the colon, but no eviden ce of acute diverticulitis. Peritoneal Cavity: No ascites, collection or mesenteric inflammatory response. No free air. Lymph Nodes: Within normal limits. Bones: Within normal limits for the patient's age. Soft Tissues: Unremarkable. PELVIS: Bladder: Symmetric distention, no gross wall thickening. Reproductive Organs: Status post hysterectomy. Lymph Nodes: Within normal limits. Bones: Within normal limits for the patient's age. IMPRESSION: Focal wall thickening seen in the sigmoid colon just superior to the urinary bladder. (Series 4 imag es 666 through 682). Differential considerations include focal colitis, mild diverticulitis or colon ic mass. Barium enema and/or colonoscopy is recommended for further evaluation. RADIATION DOSE DELIVERED: 1,003.05mGy.cm Total DLP DATA REPOSITORY: All CT scans at this facility are submitted to the National Radiology Data Registry (NRDR) Dose Index Registry (DIR) with the [employer] (ACR). RADIATION OPTIMIZATION: All CT scans at this facility use at least one of these dose optimization te chniques: automated exposure control; mA and/or kV adjustment per patient size (includes targeted exa ms where dose is matched to clinical indication); or iterative reconstruction.
[2021-08-27 07:33] LABS: Lactate 0.9 mmol/L (0.6-1.4)
[2021-08-27 07:42] LABS: Anisocytosis 1+; Microcytosis 1+; Ovalocytes 2+
[2021-08-27 07:43] LABS: Poikilocytes 2+
[2021-08-27] MEDS: Benzonatate 200 MG CAP PO (07:48)
[2021-08-27 07:59] LABS: ALT 26 U/L (14-59); AST 18 U/L (15-37); Albumin 3.7 g/dL (3.4-5.0); Alkaline Phosphatase 86 U/L (46-116); Anion Gap 8.1 mmol/L (3-11); BUN 18 mg/dL (7-18); Bilirubin, Direct 0.1 mg/dL (0.0-0.2); Bilirubin, Total 0.5 mg/dL (0.2-1.0); CO2 26.9 mmol/L (21.0-32.0); CREATININE 0.8 mg/dL (0.55-1.02); Calcium 9.1 mg/dL (8.5-10.1); Chloride 103 mmol/L (98-107); Glucose 130 mg/dL (74-106); Lipase 20 U/L (73-393); Magnesium 1.8 mg/dL (1.8-2.4); Sodium 138 mmol/L (136-145); Total Protein 7.2 g/dL (6.4-8.2)
[2021-08-27 08:26] LABS: Bilirubin Negative (Negative); Blood Negative (Negative); Clarity Clear (Clear); Glucose Negative (Negative); Ketones Negative (Negative); Leukocyte Esterase Trace (Negative); Nitrite Negative (Negative); Specific Gravity 1.015 (1.005-1.025); Urobilinogen 0.2 EU/dL (Up TO 0.2)
[2021-08-27 08:34] LABS: Bacteria Negative HPF (Negative); C & S Indicated? No; Casts Negative LPF (Negative); Crystals Negative HPF (Negative); Epithelial Cells Few HPF (Negative); Mucus Negative (Negative); RBC 0-2 HPF (0-2)
[2021-08-27] MEDS: Omnipaque 350 MG/ML 100 ML BTL IJ (08:48)
--- NOTE | 2021-08-27 09:01 | DI.VRAD_ITS ---
PROCEDURE INFORMATION: Exam: CT Abdomen And Pelvis With Contrast Exam date and time: 08/27/2021 7:35 AM Age: 71 years old Clinical indication: Nausea and vomiting; Patient HX: Upper abdomen pain, nausea; Additional info: Best images possible, PT unable to hold still. TECHNIQUE: Imaging protocol: Computed tomography of the abdomen and pelvis with contrast. Radiation optimization: All CT scans at this facility use at least one of these dose optimization techniques: automated exposure control; mA and/or kV adjustment per patient size (includes targeted exams where dose is matched to clinical indication); or iterative reconstruction. Contrast material: OMNIPAQUE 350; Contrast volume: 100 ml; Contrast route: INTRAVENOUS (IV); COMPARISON: CT ABDOMEN PELVIS W 07/01/2019 9:58 PM FINDINGS: Liver: Normal. No mass. Gallbladder and bile ducts: Cholecystectomy Pancreas: Normal. No ductal dilation. Spleen: Normal. No splenomegaly. Adrenal glands: Normal. No mass. Kidneys and ureters: 17 mm simple cyst left kidney. Nonobstructing left renal calculus. No ureteral calculus Stomach and bowel: Colonic wall thickening in the rectosigmoid series 3, image 68. Differential includes focal colitis, mild diverticulitis, or developing colonic mass.. Appendix: No evidence of appendicitis. Intraperitoneal space: Unremarkable. No free air. No significant fluid collection. Vasculature: Unremarkable. No abdominal aortic aneurysm. Lymph nodes: Unremarkable. No enlarged lymph nodes. Urinary bladder: Distended bladder 12 cm Reproductive: Unremarkable as visualized. Bones/joints: Unremarkable. No acute fracture. Soft tissues: Unremarkable. IMPRESSION: Colonic wall thickening in the rectosigmoid series 3, image 68. Differential includes focal colitis, mild diverticulitis, or developing colonic mass.. Dictated and Authenticated by: Alex Yang MD. Ordering:FERNANDO Rocha MD
== END 2021-08-27 10:09 | disposition home or self-care (01) ==
PROVIDERS: Emergency Medicine; Emergency Provider Emergency Medicine; PCP Nurse Practitioner Family
DX: R10.10 Upper abdominal pain, unspecified (principal); R11.0 Nausea; R93.3 Abnormal findings on diagnostic imaging of other parts of digestive tract
CPT/HCPCS: 36415; 80053; 82805; 83690; 96361; 96374; 99285; 74177; 81003; 81015; 82248; 83605; 83735; 85025; 99284; J2405; J3490

== ENCOUNTER 2021-08-31 00:59 | Outpatient (CLI) | payer MEDICARE, MEDICAID, SELFPAY ==
--- NOTE | 2021-08-31 12:47 | DI.MAMMO_ITS ---
Exam(s) MAMMO SCREENING EXAM: MAMMO SCREENING CLINICAL HISTORY: SCREENING, Z12.39 TECHNIQUE: Mammograms were interpreted according to the usual protocol including computer analysis w [employer] CAD system, tomosynthesis and C-view imaging. COMPARISON: FINDINGS: Breasts are of moderate density with fairly symmetrical distribution of fibroglandular tissue. No do minant mass or clumped microcalcification is identified in either breast. The current examination is compared with previous examinations including August 2018 and there has been no gross interval change in appearance in comparison with the prior studies. IMPRESSION: No specific evidence of malignancy at this time. Routine screening examinations are suggested at ye chilango intervals due to the family history of breast carcinoma. BI-RADS Category 1 - Negative Breast Density - Category B - Scattered areas of fibroglandular density
== END 2021-08-31 01:19 ==
PROVIDERS: PCP Nurse Practitioner Family; Visit Provider Nurse Practitioner Family
DX: Z12.31 Encounter for screening mammogram for malignant neoplasm of breast (principal)
CPT/HCPCS: 77063; 77067

== ENCOUNTER 2021-09-19 13:40 | Observation (INO) | payer MEDICARE, MEDICAID, SELFPAY ==
[2021-09-19] VITALS (30 sets, daily range): BP systolic 117–155; BP diastolic 49–112; PULSE 69–87; RESP 4–18; TEMP 36.2–36.6; O2SAT 92–100
--- NOTE | 2021-09-19 13:30 | RT.EKG_ITS ---
APPROVED REPORT Exam: Resting ECG Reason for Exam: difficulty breathing Patient Location: E HR:70 bpm ECG Measurements Heart Rate 70 AXIS GA 192 P 59 QRSd 78 QRS 18 QT 406 T 74 QTc 437 Conclusion Sinus rhythm...normal P axis, V-rate 60- 99 Low voltage, precordial leads...precordial leads <1.0mV sinus rhythm at 70, normal axis, low voltage in the precordial leads, no STEMI, no major change from prior 08/22/2021, nondiagnostic EKG
--- NOTE | 2021-09-19 13:45 | DI.RAD_ITS ---
Exam(s) XR PORTABLE CHEST AP EXAM: XR PORTABLE CHEST AP CLINICAL HISTORY: SOB. TECHNIQUE: 2D digital imaging was performed. COMPARISON: CR XR PORTABLE CHEST AP from 08/22/2021 FINDINGS: Single AP portable view. Heart size is upper normal. The mediastinum is not widened. Lungs are clear. No infiltrates nor obvious pleural effusions. IMPRESSION: No acute pulmonary findings on this single AP portable view of the chest. DATA REPOSITORY: RADIATION DOSE DELIVERED: All CT scans at this facility use at least one of these dose optimization techniques: automated exposure control; mA and/or kV adjustment per patient size (includes targeted e xams where dose is matched to clinical indication); or iterative reconstruction.
[2021-09-19 14:11] LABS: Lactate 1.1 mmol/L (0.6-1.4)
[2021-09-19 14:16] LABS: Abs Immature Grans 0.05 10^3/uL (0.0-0.06); Absolute Basophil Count 0.13 10^3/uL (0.0-0.2); Absolute Eosinophil Count 0.89 10^3/uL (0.0-0.7); Absolute Monocyte Count 0.73 10^3/uL (0.1-0.8); Absolute Neutrophil Count 8.88 10^3/uL (1.2-6.7); HGB 9.4 g/dL (11.2-15.7); Immature Grans % 0.4; Lymphocytes % 16.4; MCH 21.5 pg (27.0-33.0); MCHC 29.4 % (32.0-36.0); MCV 73.1 fL (80-95); Monocytes % 5.7; Neutrophils % 69.5; Nucleated RBC 0 %; Platelet Count 295 10^3/uL (130-400); RBC 4.38 10^6/uL (3.93-5.22); RDW 16.3 % (11.7-14.6); RDW-SD 43.2 fL; WBC 12.78 10^3/uL (4.4-10.8)
--- NOTE | 2021-09-19 14:17 | W.ED.GENAD ---
Discharge Plan Disposition Patient Disposition: [facility] INPATIENT Condition: Good Discharge Details Chief Complaint: RespSymp Clinical Impression: COPD (chronic obstructive pulmonary disease) Admit Date/Time: 09/19/21 15:31 Admit Provider: Osmin Ling Attending Provider: Osmin Ling Primary Care Provider: Sebastián Stephens ED Provider: Celine Guzman Discharge Instructions Activity:: Activity as Tolerated Equipment/Supplies:: No Equipment Needed Diet:: Carb Counting Discharge Orders Discharge Orders: Discharge Order (Routine); Ordered 09/21/21 Ordered By: Kanwal Collier Discharge Data Discharge Date/Time-TO BE ENTERED AT DEPARTURE: 09/19/21 17:22 Medical Decision Making Isaura Gaviria is a 71-year-old woman with a history of COPD, anemia, hyperlipidemia, hypertension, diabetes, GERD presenting to emergency department with shortness of breath. Patient reports that she was seen at her PCPs office today for shortness of breath. Patient reports that she has been having worsening shortness of breath over the past 3 to 4 days. She reports that she has been unable to lie flat since onset due to worsening shortness of breath. She reports she has new cough over same time period. She denies pain, fevers, vomiting, diarrhea, numbness, weakness, rash. She does reports that her legs seem more swollen than usual. Patient reports she has been using inhaler at home without relief. Patient was seen by her PCP today for the complaint, received 2 DuoNeb, 40 mg of prednisone, and was sent to the ED for persistent cough/respiratory distress. Patient with increased work of breathing on exam, however is able to speak in full sentences. Diffuse expiratory wheeze bilaterally. O2 sat 95% on room air. Concern for COPD exacerbation, COVID, pneumonia, CHF. Less likely acute coronary syndrome, pulmonary embolism, DKA, sepsis. Exam/history at this time not consistent with acute aortic process. Plan for telemetry, IV placement, EKG, chest x-ray, screening labs, continuous albuterol, magnesium. Will monitor and reassess. Labs reviewed, WBC 12.78, troponin negative, BNP 88, D-dimer 501. Patient reports improvement with continuous albuterol. Expiratory wheeze present throughout, significantly improved after continuous albuterol upon reevaluation. Patient states she feels improved but not fine. Plan for admission for COPD exacerbation. Imaging Data Radiologic Study: Attestation: I personally reviewed and interpreted this imaging study as follows: Radiologist's impression: EXAM:? XR PORTABLE CHEST AP CLINICAL HISTORY: ? SOB. ? TECHNIQUE:? 2D digital imaging was performed. COMPARISON:? CR XR PORTABLE CHEST AP from 08/22/2021 FINDINGS: Single AP portable view. Heart size is upper normal.? The mediastinum is not widened. Lungs are clear.? No infiltrates nor obvious pleural effusions. IMPRESSION: No acute pulmonary findings on this single AP portable view of the chest. Lab Data Lab results reviewed: Yes I reviewed the patient's lab results. Labs: 09/19/21 14:42 Blood Blood Culture - Pending 09/19/21 14:42 Blood Blood Culture - Pending Laboratory Tests Range/Units 09/19/21 09/19/21 09/19/21 14:00 14:08 14:08 WBC (4.4-10.8) 10^3/uL 12.78 H RBC (3.93-5.22) 10^6/uL 4.38 Hgb (11.2-15.7) g/dL 9.4 L Hct (36.0-46.0) % 32.0 L MCV (80-95) fL 73.1 L MCH (27.0-33.0) pg 21.5 L MCHC (32.0-36.0) % 29.4 L RDW (11.7-14.6) % 16.3 H Plt Count (130-400) 10^3/uL 295 MPV (8.0-11.0) fL 9.0 Immature Gran % 0.4 Neutrophils % 69.5 Lymphocytes % 16.4 Monocytes % 5.7 Eosinophils % 7.0 Basophils % 1.0 Nucleated RBC % % 0 Absolute Neutrophils (1.2-6.7) 10^3/uL 8.88 H Absolute Lymphocytes (1.2-3.4) 10^3/uL 2.10 Absolute Monocytes (0.1-0.8) 10^3/uL 0.73 Absolute Eosinophils (0.0-0.7) 10^3/uL 0.89 H Absolute Basophils (0.0-0.2) 10^3/uL 0.13 D-Dimer (<500) ng/mlFEU VBG pH (7.31-7.41) VBG pCO2 (41-51) mmHg VBG pO2 mmHg VBG HCO3 (23-28) mmol/L VBG Total CO2 (24-29) mmol/L VBG O2 Saturation % VBG Base Excess (-2-3) mmol/L VBG Lactate (0.6-1.4) mmol/L 1.1 Sodium (136-145) mmol/L 141 Potassium (3.5-5.1) mmol/L 4.1 Chloride (98-107) mmol/L 106 Carbon Dioxide (21.0-32.0) mmol/L 26.8 Anion Gap (3-11) mmol/L 8.2 BUN (7-18) mg/dL 15 Creatinine (0.55-1.02) mg/dL 0.8 Estimated GFR/1.73 m2 (mL/min/1.73m2) >= 60.00 Glucose (74-106) mg/dL 132 H Calcium (8.5-10.1) mg/dL 8.8 Magnesium (1.8-2.4) mg/dL 2.0 Total Bilirubin (0.2-1.0) mg/dL 0.4 AST (15-37) U/L 19 ALT (14-59) U/L 26 Alkaline Phosphatase (46-116) U/L 103 Troponin I (<or=60) ng/L < 50 NT-Pro-B Natriuret Pep (<300) pg/mL Total Protein (6.4-8.2) g/dL 7.2 Albumin (3.4-5.0) g/dL 3.7 Range/Units 09/19/21 09/19/21 09/19/21 14:08 14:08 14:08 WBC (4.4-10.8) 10^3/uL RBC (3.93-5.22) 10^6/uL Hgb (11.2-15.7) g/dL Hct (36.0-46.0) % MCV (80-95) fL MCH (27.0-33.0) pg MCHC (32.0-36.0) % RDW (11.7-14.6) % Plt Count (130-400) 10^3/uL MPV (8.0-11.0) fL Immature Gran % Neutrophils % Lymphocytes % Monocytes % Eosinophils % Basophils % Nucleated RBC % % Absolute Neutrophils (1.2-6.7) 10^3/uL Absolute Lymphocytes (1.2-3.4) 10^3/uL Absolute Monocytes (0.1-0.8) 10^3/uL Absolute Eosinophils (0.0-0.7) 10^3/uL Absolute Basophils (0.0-0.2) 10^3/uL D-Dimer (<500) ng/mlFEU 501 H VBG pH (7.31-7.41) 7.36 VBG pCO2 (41-51) mmHg 49 VBG pO2 mmHg 29 VBG HCO3 (23-28) mmol/L 28 VBG Total CO2 (24-29) mmol/L 26 VBG O2 Saturation % 50 VBG Base Excess (-2-3) mmol/L 2 VBG Lactate (0.6-1.4) mmol/L Sodium (136-145) mmol/L Potassium (3.5-5.1) mmol/L Chloride (98-107) mmol/L Carbon Dioxide (21.0-32.0) mmol/L Anion Gap (3-11) mmol/L BUN (7-18) mg/dL Creatinine (0.55-1.02) mg/dL Estimated GFR/1.73 m2 (mL/min/1.73m2) Glucose (74-106) mg/dL Calcium (8.5-10.1) mg/dL Magnesium (1.8-2.4) mg/dL Total Bilirubin (0.2-1.0) mg/dL AST (15-37) U/L ALT (14-59) U/L Alkaline Phosphatase (46-116) U/L Troponin I (<or=60) ng/L NT-Pro-B Natriuret Pep (<300) pg/mL 88 Total Protein (6.4-8.2) g/dL Albumin (3.4-5.0) g/dL ECG Data Interpretation: EKG shows sinus rhythm at 70, normal axis, low voltage in the precordial leads, no STEMI, no major change from prior 08/22/2021, nondiagnostic EKG HPI General Date/Time Provider Initiated Documentation: 09/19/21 13:42. Limitations to Documentation: no limitations. Information obtained by: patient, RN notes reviewed and old records reviewed. HPI Narrative: Isaura Gaviria is a 71-year-old woman with a history of COPD, anemia, hyperlipidemia, hypertension, diabetes, GERD presenting to emergency department with shortness of breath. Patient reports that she was seen at her PCPs office today for shortness of breath. Patient reports that she has been having worsening shortness of breath over the past 3 to 4 days. She reports that she has been unable to lie flat since onset due to worsening shortness of breath. She reports she has new cough over same time period. She denies pain, fevers, vomiting, diarrhea, numbness, weakness, rash. She does reports that her legs seem more swollen than usual. Patient reports she has been using inhaler at home without relief. Patient was seen by her PCP today for the complaint, received 2 DuoNeb, 40 mg of prednisone, and was sent to the ED for persistent cough/respiratory distress. Related Data Home Medications Medication Instructions Recorded Confirmed pantoprazole 40 mg tablet,delayed 40 mg PO DAILY 02/20/13 09/19/21 release glyburide 5 mg-metformin 500 mg 500 tab-cap PO BID tab-cap 09/22/16 09/19/21 tablet calcium carbonate 600 mg-vitamin 1 ea PO BID 10/10/17 09/19/21 D3 10 mcg (400 unit) tablet simvastatin 40 mg tablet 40 mg PO HS 10/10/17 09/19/21 magnesium oxide 400 mg PO BID 07/23/19 09/19/21 lactulose 10 gram/15 mL oral 15 ml PO DAILY PRN 10/18/20 09/19/21 solution quetiapine 100 mg tablet 150 mg PO HS tab 10/18/20 09/19/21 losartan 50 mg tablet 50 mg PO DAILY 11/04/20 09/19/21 inhalational spacing device #1 ea 06/17/21 06/17/21 (Aerochamber MV) albuterol sulfate 90 mcg/actuation 2 inh INHALATION Q4H PRN #1 ea 08/22/21 09/19/21 breath activated powder inhaler propranolol 40 mg tablet 40 mg PO BID 08/22/21 09/19/21 tiotropium 2.5 mcg-olodaterol 2.5 2 puff INHALATION DAILY #4 g 08/22/21 09/19/21 mcg/actuation mist for inhalation (Stiolto Respimat) benzonatate 200 mg capsule 200 mg PO TID PRN #20 cap 09/21/21 guaifenesin 600 mg tablet, 600 mg PO BID #20 tab 09/21/21 extended release 12 hr (Mucinex) prednisone 20 mg tablet 40 mg PO DAILY #6 tab 09/21/21 Previous Rx's Medication Instructions Recorded inhalational spacing device #1 ea 06/17/21 (Aerochamber MV) albuterol sulfate 90 mcg/actuation 2 inh INHALATION Q4H PRN #1 ea 08/22/21 breath activated powder inhaler tiotropium 2.5 mcg-olodaterol 2.5 2 puff INHALATION DAILY #4 g 08/22/21 mcg/actuation mist for inhalation (Stiolto Respimat) benzonatate 200 mg capsule 200 mg PO TID PRN #20 cap 09/21/21 guaifenesin 600 mg tablet, 600 mg PO BID #20 tab 09/21/21 extended release 12 hr (Mucinex) prednisone 20 mg tablet 40 mg PO DAILY #6 tab 09/21/21 Allergies Allergy/AdvReac Type Severity Reaction Status Date / Time thiopental sodium Allergy Skin Rash Unverified 09/19/21 13:54 [From [facility]] General Stated Complaint: RespSymp LYNNETTE: 3 Review of Systems Narrative: Constitutional: denies fevers Eyes: denies eye pain ENT: denies ear pain, dental pain, sore throat Cardiovascular: denies chest pain, reports edema Respiratory: Reports SOB, cough GI: denies abdominal pain, vomiting, diarrhea : denies flank pain MSK: denies back pain, neck pain, arthralgias, myalgias Skin: denies rash Neuro: denies headaches, numbness, weakness PFSH All Active Problems (Updated 09/26/21 @ 08:03 by Celine Guzman MD) Family history of colon cancer (Acute) Diverticulitis of large intestine (Acute) Colonoscopy planned (Acute) Abnormal CT scan (Acute) Abdominal pain (Acute) Colon abnormality (Acute) Illiterate (Chronic) able to manage independently Shortness of breath (Acute) COVID-19 (Acute) with persistent cough Transient leg weakness (Acute) Bronchospasm (Acute) Atypical chest pain (Acute) Palliative care status (Chronic) Financial difficulties (Chronic) Constipation (Chronic) takes lactulose to tx Encounter for screening colonoscopy (Acute) DNI (do not intubate) (Chronic) DNR (do not resuscitate) (Chronic) Palliative care patient (Chronic) Learning disability (Chronic) manages her own medications Diverticulosis (Acute) COPD (chronic obstructive pulmonary disease) (Chronic) Anemia (Chronic) Medical History Anxiety Asthma (04/02/13) Benign essential tremor Carpal tunnel syndrome Cerumen impaction (12/29/13) CHI (closed head injury) Chronic low back pain COPD exacerbation Cyst of ovary Laparoscopic bilateral salpingo-oophorectomy on 04-09-[address]Anne Medina. Path pending. Cyst of ovary (03/12/13) 02/26/13 L ovary [id number], R ovary [id number]. Not complex. Depression (04/02/13) Diabetes Diabetes mellitus Dry cough asking for humidifier Eczema Essential hypertension (04/02/13) Fall GERD (gastroesophageal reflux disease) Goals of care, counseling/discussion Hair loss Hemorrhoid HTN (hypertension) Hypercholesterolemia Hyperlipidemia (04/02/13) Hypertension Hypomagnesemia Learning disability Leukocytosis Leukocytosis (leucocytosis) Lives alone with help available NO DPOA yet; ? state guardian? 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 Arthroplasty of knee L knee Dr Fuentes Cholecystectomy laparoscopic 03/2011 Extraction of cataract in [place] H/O arthroscopy of left knee (~01/2007) History of colonoscopy (~07/24/19) Oophrectomy, Both (04/09/13) laparotomy. aoc and kk. Family History Sister Heart disease Son Parent-child estrangement nec Under care of skilled nursing service life sentence for murder Daughter Parent-child estrangement nec Substance abuse Social History Smoking/Tobacco Use Status: Former Tobacco Use tobacco type: cigarettes Tobacco: How many years used: 40 Smoking risk assessment performed?: Yes Alcohol Intake: former Drug use: Never Substance use type: does not use Caregiver/Support person: No Household members: none Housing: apartment Number of Children: 0 Communication Needs: Cannot Read Education Level: middle school Details: finished 6th grade only Do you need help understanding health information?: Always current occupation: always disabled; worked as [employer] for 5 years in her late teens, early 20s Pets and animals: No What is your relationship status?: How often do you talk on the phone with friends or family?: never How often do you get together with friends or relatives?: never Panel score (0-1 are the most socially isolated patients): 0 What type of physical activity do you participate in: walking and irregular exercise Duration: < 15 minutes/day Frequency: 1-2 times per week Special pankaj needs: No Agree to transfusion: Yes Seatbelt use: always Drive intox or ride w/intox commercial relief driver: No Water heater temp set <120 deg: Yes Working smoke detector in home: Yes Firearms in home: No Do you feel safe at home: Yes Do you feel safe in your relationship?: Yes Additional Social history: she was very briefly in her teens was with Praneeth Cee for 15 years; he in 2016, she thinks, from colon cancer, bled out. Estranged from both her children, no family, no DPOA. Daughter with SA; her children taken from her. Son incarcerated for life. Exam Narrative Exam Narrative: Constitutional: well and [id number], tachypneic but speaking in full sentences HENT: head atraumatic/normocephalic/normal inspection, mucous membranes moist Eyes: conjunctiva normal, sclera normal, pupils 3mm b/l Neck: no stridor, normal ROM, trachea midline Chest: normal inspection Resp: Increased work of breathing, diffuse expiratory wheeze bilaterally, no rales, no rhonchi Cardio: normal rate, normal rhythm, no murmur appreciated GI: abdomen soft, non-tender, non-distended Back: normal inspection, no rash Skin: warm, dry, normal color, no rash Neuro: alert, not altered, grossly non-focal, normal tone Ext: +1 pitting edema bilateral lower extremities, no posterior calf tenderness to palpation Psych: normal mood, normal affect, normal behavior Course Vital Signs Vital signs: Vital Signs Temperature 36.6 C 09/19/21 13:39 Pulse 80 09/19/21 13:39 Respiratory Rate 16 09/19/21 13:39 Blood Pressure 147/112 H 09/19/21 13:39 Pulse Oximetry 96 09/19/21 13:39 Temperature 36.6 C 09/19/21 13:39 Temperature Source Skin 09/19/21 13:39 Pulse 80 09/19/21 13:39 Respiratory Rate 16 09/19/21 13:39 Respiratory Effort Accessory Muscle Use 09/19/21 13:58 Respiratory Depth Shallow 09/19/21 13:58 Blood Pressure 147/112 H 09/19/21 13:39 Blood Pressure Position Sitting 09/19/21 13:39 Pulse Oximetry 96 09/19/21 13:39 Oxygen Delivery Method Nasal Cannula 09/19/21 13:39 Oxygen Flow Rate 1 09/19/21 13:39 Pain Level 0 09/19/21 13:39 Lab/Test Results Lab/Test Results: 09/19/21 13:55 Blood Blood Culture - Pending 09/19/21 13:55 Blood Blood Culture - Pending
[2021-09-19 14:20] LABS: BE (Venous) 2 mmol/L (-2-3); HCO3 (Venous) 28 mmol/L (23-28); O2 Sat (Venous) 50 %; TCO2 (Venous) 26 mmol/L (24-29); pCO2 (Venous) 49 mmHg (41-51); pH (Venous) 7.36 (7.31-7.41); pO2 (Venous) 29 mmHg
[2021-09-19 14:42] LABS: ALT 26 U/L (14-59); AST 19 U/L (15-37); Albumin 3.7 g/dL (3.4-5.0); Alkaline Phosphatase 103 U/L (46-116); Anion Gap 8.2 mmol/L (3-11); BUN 15 mg/dL (7-18); Bilirubin, Total 0.4 mg/dL (0.2-1.0); CO2 26.8 mmol/L (21.0-32.0); CREATININE 0.8 mg/dL (0.55-1.02); Calcium 8.8 mg/dL (8.5-10.1); Chloride 106 mmol/L (98-107); Glucose 132 mg/dL (74-106); Potassium 4.1 mmol/L (3.5-5.1); Sodium 141 mmol/L (136-145); Total Protein 7.2 g/dL (6.4-8.2); Troponin I < 50 ng/L (<or=60)
[2021-09-19 14:46] LABS: NT-proBNP 88 pg/mL (<300)
[2021-09-19] MEDS: MAGNESIUM SULFATE 1 GM/100 ML BAG IVPB (14:59)
[2021-09-19 15:16] LABS: D-Dimer 501 ng/mlFEU (<500)
--- NOTE | 2021-09-19 15:37 | HPE_ITS ---
Date of service: 09/19/21 Time of Service: 15:37 Assessment and Plan Assessment and plan (1) COPD exacerbation: Status: Acute Assessment and plan: will admit to med/surg received stack nebulilzers for symptoms. not hypoxic, CXR was clear, no evidence of CHF, PE or pneumonia by exam, labs and imagining. procalcitonin added, will hold off on antibiotics until resulted. covid and influenza swab pending. she received prednisone 40 mg which will continue daily. continue respiratory inhalers and duoneb prn. (2) Diabetes mellitus: Status: Chronic Assessment and plan: last A1C 6.8 in 2018 on our records hold home oral medication and monitor while hospitalized anticipate hyperglycemia in setting of steroid use (3) Essential hypertension: Status: Acute Assessment and plan: continue home medication and monitor. discussed with DR Ling History of Present Illness History of Present Illness Chief Complaint: shortness of breath Narrative: patient presented to the ED after being evaluated in urgent care for shortness of breath and wheezing. she had received updrafts and oral prednisone but was still too dyspneic to be discharged so sent here for further evaluation. in the ED she was ruled out for heart failure, PE and pneumonia. hospitalist services was requested to admit to observation. PFSH All Active Problems (Updated 09/20/21 @ 17:34 by Kavita Rojas NP) Essential hypertension (Acute 04/02/13) Diabetes mellitus (Chronic) DVT prophylaxis (Acute) Diabetes (Chronic) Leukocytosis (Acute) Hypertension (Chronic) COPD exacerbation (Acute) Family history of colon cancer (Acute) Diverticulitis of large intestine (Acute) Colonoscopy planned (Acute) Abnormal CT scan (Acute) Abdominal pain (Acute) Colon abnormality (Acute) Illiterate (Chronic) able to manage independently Shortness of breath (Acute) COVID-19 (Acute) with persistent cough Transient leg weakness (Acute) Bronchospasm (Acute) Atypical chest pain (Acute) Palliative care status (Chronic) Financial difficulties (Chronic) Constipation (Chronic) takes lactulose to tx Encounter for screening colonoscopy (Acute) DNI (do not intubate) (Chronic) DNR (do not resuscitate) (Chronic) Palliative care patient (Chronic) Learning disability (Chronic) manages her own medications Diverticulosis (Acute) COPD (chronic obstructive pulmonary disease) (Chronic) Anemia (Chronic) Medical History (Updated 09/20/21 @ 17:34 by Kavita Rojas, ARASH) Anxiety Asthma (04/02/13) Benign essential tremor Carpal tunnel syndrome Cerumen impaction (12/29/13) CHI (closed head injury) Chronic low back pain Cyst of ovary Laparoscopic bilateral salpingo-oophorectomy on 04-09-[address]Anne Medina. Path pending. Cyst of ovary (03/12/13) 02/26/13 L ovary [id number], R ovary [id number]. Not complex. Depression (04/02/13) Dry cough asking for humidifier Eczema Fall GERD (gastroesophageal reflux disease) Goals of care, counseling/discussion Hair loss Hemorrhoid HTN (hypertension) Hypercholesterolemia Hyperlipidemia (04/02/13) Hypomagnesemia Learning disability Leukocytosis (leucocytosis) Lives alone with help available NO DPOA yet; ? state guardian? 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 Arthroplasty of knee L knee Dr Fuentes Cholecystectomy laparoscopic 03/2011 Extraction of cataract in [place] H/O arthroscopy of left knee (~01/2007) History of colonoscopy (~07/24/19) Oophrectomy, Both (04/09/13) laparotomy. aoc and kk. Family History Sister Heart disease Son Parent-child estrangement nec Under care of group home service life sentence for murder Daughter Parent-child estrangement nec Substance abuse Social History Smoking/Tobacco Use Status: Former Tobacco Use tobacco type: cigarettes Tobacco: How many years used: 40 Smoking risk assessment performed?: Yes Alcohol Intake: former Drug use: Never Substance use type: does not use Caregiver/Support person: No Household members: none Housing: apartment Number of Children: 0 Communication Needs: Cannot Read Education Level: middle school Details: finished 6th grade only Do you need help understanding health information?: Always current occupation: always disabled; worked as [employer] for 5 years in her late teens, early 20s Pets and animals: No What is your relationship status?: How often do you talk on the phone with friends or family?: never How often do you get together with friends or relatives?: never Panel score (0-1 are the most socially isolated patients): 0 What type of physical activity do you participate in: walking and irregular exercise Duration: < 15 minutes/day Frequency: 1-2 times per week Special pankaj needs: No Agree to transfusion: Yes Seatbelt use: always Drive intox or ride w/intox student truck driver: No Water heater temp set <120 deg: Yes Working smoke detector in home: Yes Firearms in home: No Do you feel safe at home: Yes Do you feel safe in your relationship?: Yes Additional Social history: she was very briefly in her teens was with Praneeth Cee for 15 years; he in 2015, she thinks, from colon cancer, bled out. Estranged from both her children, no family, no DPOA. Daughter with SA; her children taken from her. Son incarcerated for life. Meds Allergies and Home Medications Allergies Allergy/AdvReac Type Severity Reaction Status Date / Time thiopental sodium Allergy Skin Rash Unverified 09/19/21 13:54 [From Pentothal] Home Medications Medication Instructions Recorded Confirmed Type pantoprazole 40 mg tablet,delayed 40 mg PO DAILY 02/20/13 09/19/21 History release glyburide 5 mg-metformin 500 mg 500 tab-cap PO BID tab-cap 09/22/16 09/19/21 History tablet calcium carbonate 600 mg-vitamin 1 ea PO BID 10/10/17 09/19/21 History D3 10 mcg (400 unit) tablet simvastatin 40 mg tablet 40 mg PO HS 10/10/17 09/19/21 History magnesium oxide 400 mg PO BID 07/23/19 09/19/21 History lactulose 10 gram/15 mL oral 15 ml PO DAILY PRN 10/18/20 09/19/21 History solution quetiapine 100 mg tablet 150 mg PO HS tab 10/18/20 09/19/21 History losartan 50 mg tablet 50 mg PO DAILY 11/04/20 09/19/21 History inhalational spacing device #1 ea 06/17/21 06/17/21 Rx (Aerochamber MV) albuterol sulfate 90 mcg/actuation 2 inh INHALATION Q4H PRN #1 ea 08/22/21 09/19/21 Rx breath activated powder inhaler propranolol 40 mg tablet 40 mg PO BID 08/22/21 09/19/21 History tiotropium 2.5 mcg-olodaterol 2.5 2 puff INHALATION DAILY #4 g 08/22/21 09/19/21 Rx mcg/actuation mist for inhalation (Stiolto Respimat) Exam Const General: cooperative, healthy appearing and comfortable Nutritional Appearance: average body habitus Orientation: alert, awake and oriented x3 HENMT Head: normal to inspection and atraumatic Mouth: oral mucosae normal Chest Chest: normal inspection of the chest Resp Effort & Inspection: cough Quality of cough: wet (moist, clear sputum) Auscultation: wheezes expiratory wheezes Cardio Rate: regular rate Rhythm: regular rhythm GI Palpation: soft Auscultation: normal bowel sounds Skin General skin exam: no rashes or lesions noted Neuro General: patient alert, patient awake, patient oriented x3 and no focal motor deficits Extrem General: normal to inspection and no pedal edema Results Labs Result diagrams: 09/20/21 06:25 09/20/21 06:25 Labs: Laboratory Results - last 24 hr 09/19/21 09/19/21 09/19/21 14:00 14:08 14:08 WBC 12.78 H RBC 4.38 Hgb 9.4 L Hct 32.0 L MCV 73.1 L MCH 21.5 L MCHC 29.4 L RDW 16.3 H Plt Count 295 MPV 9.0 Immature Gran % 0.4 Neutrophils % 69.5 Lymphocytes % 16.4 Monocytes % 5.7 Eosinophils % 7.0 Basophils % 1.0 Nucleated RBC % 0 Absolute Neutrophils 8.88 H Absolute Lymphocytes 2.10 Absolute Monocytes 0.73 Absolute Eosinophils 0.89 H Absolute Basophils 0.13 D-Dimer VBG pH VBG pCO2 VBG pO2 VBG HCO3 VBG Total CO2 VBG O2 Saturation VBG Base Excess VBG Lactate 1.1 Sodium 141 Potassium 4.1 Chloride 106 Carbon Dioxide 26.8 Anion Gap 8.2 BUN 15 Creatinine 0.8 Estimated GFR/1.73 m2 >= 60.00 Glucose 132 H Calcium 8.8 Magnesium 2.0 Total Bilirubin 0.4 AST 19 ALT 26 Alkaline Phosphatase 103 Troponin I < 50 NT-Pro-B Natriuret Pep Total Protein 7.2 Albumin 3.7 09/19/21 09/19/21 09/19/21 14:08 14:08 14:08 WBC RBC Hgb Hct MCV MCH MCHC RDW Plt Count MPV Immature Gran % Neutrophils % Lymphocytes % Monocytes % Eosinophils % Basophils % Nucleated RBC % Absolute Neutrophils Absolute Lymphocytes Absolute Monocytes Absolute Eosinophils Absolute Basophils D-Dimer 501 H VBG pH 7.36 VBG pCO2 49 VBG pO2 29 VBG HCO3 28 VBG Total CO2 26 VBG O2 Saturation 50 VBG Base Excess 2 VBG Lactate Sodium Potassium Chloride Carbon Dioxide Anion Gap BUN Creatinine Estimated GFR/1.73 m2 Glucose Calcium Magnesium Total Bilirubin AST ALT Alkaline Phosphatase Troponin I NT-Pro-B Natriuret Pep 88 Total Protein Albumin Last Vital Signs Temp 36.6 C 09/19/21 13:39 Pulse 69 09/19/21 14:02 Resp 18 09/19/21 14:41 BP 155/91 H 09/19/21 14:02 Pulse Ox 97 09/19/21 15:20
[2021-09-19 16:29] LABS: Procalcitonin < 0.1 ng/mL
[2021-09-19 16:52] LABS: COVID-19 PCR Negative (Negative); Influenza A PCR Negative (Negative); Influenza B PCR Negative (Negative); RSV PCR Negative (Negative)
[2021-09-19 16:57] LABS: Source Nasopharynx
[2021-09-19 18:07] LABS: Troponin I < 50 ng/L (<or=60)
[2021-09-19] MEDS: Magnesium Oxide 400 MG TAB PO (20:53)
[2021-09-19] MEDS: guaiFENesin 600 MG TABCR PO (20:53)
[2021-09-19] MEDS: Propranolol 40 MG TAB PO (20:54)
[2021-09-19] MEDS: Calcium 600mg/Vit D 200U TAB 1 TAB PO (20:54)
[2021-09-19] MEDS: QUEtiapine 100 MG TAB 150 MG PO (21:36)
[2021-09-19] MEDS: Simvastatin 40 MG TAB PO (21:36)
[2021-09-19] MEDS: Benzonatate 200 MG CAP PO (21:36)
[2021-09-19] MEDS: Albuterol/Ipratropium 3 ML UPD VIAL UPD (21:37)
[2021-09-19] MEDS: Normal Saline Flush 10 ML SYR IVP (21:37)
[2021-09-20] VITALS (13 sets, daily range): BP systolic 117–146; BP diastolic 57–85; PULSE 75–87; RESP 2–20; TEMP 36.3–36.7; O2SAT 95–97
[2021-09-20] MEDS: Albuterol/Ipratropium 3 ML UPD VIAL UPD ×4 (03:22→23:06)
[2021-09-20 06:42] LABS: Abs Immature Grans 0.08 10^3/uL (0.0-0.06); Basophils % 0.5; Eosinophils % 1.3; HGB 9.3 g/dL (11.2-15.7); Immature Grans % 0.5; Lymphocytes % 17.2; MCH 21.6 pg (27.0-33.0); MCV 71.9 fL (80-95); Monocytes % 7.7; Neutrophils % 72.8; Nucleated RBC 0 %; Platelet Count 304 10^3/uL (130-400); RBC 4.31 10^6/uL (3.93-5.22); RDW-SD 41.3 fL; WBC 17.19 10^3/uL (4.4-10.8)
[2021-09-20 06:45] LABS: Absolute Basophil Count 0.09 10^3/uL (0.0-0.2); Absolute Eosinophil Count 0.22 10^3/uL (0.0-0.7); Absolute Lymphocyte Count 2.96 10^3/uL (1.2-3.4); Absolute Monocyte Count 1.32 10^3/uL (0.1-0.8); Absolute Neutrophil Count 12.51 10^3/uL (1.2-6.7)
[2021-09-20 06:52] LABS: Anion Gap 7.7 mmol/L (3-11); BUN 12 mg/dL (7-18); CO2 27.3 mmol/L (21.0-32.0); CREATININE 0.7 mg/dL (0.55-1.02); Calcium 8.8 mg/dL (8.5-10.1); Chloride 105 mmol/L (98-107); Glucose 135 mg/dL (74-106); Potassium 3.8 mmol/L (3.5-5.1); Sodium 140 mmol/L (136-145)
[2021-09-20] MEDS: Tiotropium/Olodaterol 10 PUFF INHALER 2 PUFF IH (07:35)
[2021-09-20] MEDS: Magnesium Oxide 400 MG TAB PO ×2 (08:15→20:33)
[2021-09-20] MEDS: Pantoprazole 40 MG TABCR PO (08:15)
[2021-09-20] MEDS: Propranolol 40 MG TAB PO ×2 (08:15→20:33)
[2021-09-20] MEDS: guaiFENesin 600 MG TABCR PO ×2 (08:15→20:33)
[2021-09-20] MEDS: Calcium 600mg/Vit D 200U TAB 1 TAB PO ×2 (08:15→20:33)
[2021-09-20] MEDS: predniSONE 20 MG TAB 40 MG PO (08:16)
[2021-09-20] MEDS: Enoxaparin 40 MG/0.4 ML SYR SC (08:16)
[2021-09-20] MEDS: Losartan 50 MG TAB PO (08:16)
[2021-09-20] MEDS: Normal Saline Flush 10 ML SYR IVP ×2 (08:17→20:34)
[2021-09-20] MEDS: Nystatin POWDER 60 GM JAR TP ×3 (09:48→20:34)
--- NOTE | 2021-09-20 10:20 | PDOC.CMIN ---
- If Service Date Differs Date of service: 09/20/21 Time of Service: 10:20 Care Management Initial Assess REASON FOR HOSPITALIZATION:: COPD exacerbation PAST MEDICAL HISTORY/PAST SURGICAL HISTORY:: All Active Problems. COPD exacerbation (Acute). Hemorrhoid (Acute). Family history of colon cancer (Acute). Diverticulitis of large intestine (Acute). Colonoscopy planned (Acute). Abnormal CT scan (Acute). Wheezing (Acute). Abdominal pain (Acute). Colon abnormality (Acute). Illiterate (Chronic). able to manage independently. Shortness of breath (Acute). COVID-19 (Acute). with persistent cough. Transient leg weakness (Acute). Bronchospasm (Acute). Atypical chest pain (Acute). Palliative care status (Chronic). Financial difficulties (Chronic). Constipation (Chronic). takes lactulose to tx. Encounter for screening colonoscopy (Acute). DNI (do not intubate) (Chronic). DNR (do not resuscitate) (Chronic). Palliative care patient (Chronic). Learning disability (Chronic). manages her own medications. Diverticulosis (Acute). COPD (chronic obstructive pulmonary disease) (Chronic). Anemia (Chronic). Medical History. Anxiety. Asthma (04/02/13). Benign essential tremor. Carpal tunnel syndrome. Cerumen impaction (12/29/13). CHI (closed head injury). Chronic low back pain. COPD exacerbation. Cyst of ovary. Laparoscopic bilateral salpingo-oophorectomy on 04-09-[address]Anne Medina. Path pending. Cyst of ovary (03/12/13). 02/26/13 L ovary [id number], R ovary [id number]. Not complex. Depression (04/02/13). Diabetes mellitus. Dry cough. asking for humidifier. Eczema. Essential hypertension (04/02/13). Fall. GERD (gastroesophageal reflux disease). Goals of care, counseling/discussion. Hair loss. HTN (hypertension). Hypercholesterolemia. Hyperlipidemia (04/02/13). Hypomagnesemia. Learning disability. Leukocytosis (leucocytosis). Lives alone with help available. NO DPOA yet; ? state guardian? 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 Neoplasm of skin (06/30/14). Onychomycosis. Polypharmacy. Restless legs. takes Premapaxil. Right anterior knee pain. Sleep disorder. Social isolation. Urinary, incontinence, stress female (04/02/13). Vertigo. Surgical History. bladder suspension for incontinence. Abdominal hysterectomy (~1979). for heavy bleeding. Arthroplasty of knee. L knee Dr Fuentes. Cholecystectomy. laparoscopic 03/2011. Extraction of cataract. in [place]. H/O arthroscopy of left knee (~01/2007). History of colonoscopy (~07/24/19). Oophrectomy, Both (04/09/13). laparotomy. aoc and kk. PREVIOUS FUNCTIONAL STATUS/SOCIAL/FAMILY SUPPORTS:: Isaura lives at the [facility], alone. She has two children, whom she is estranged from. She stated that all of her family has . She has [facility] moderate needs, and her case resource manager is Leela Rivas from . She uses a 4WW for ambulation, but is independent with her ADL's. CURRENT FUNCTIONAL STATUS:: Isaura was sitting up in bed when CM met with her. She reported that she is feeling ok, but she didn't sleep well, and she has been coughing a lot this morning. She asked CM to contact [facility] to inform them that she is at the hospital. She stated that she doesn't feel that she will require rehab, as she is able to take care of herself at home, but she may benefit from services upon discharge. CM will continue to follow. ADVANCE DIRECTIVES:: Col[facility] on file, no agent listed. Has patient been provided with info about the portal/API?: Yes Did the patient sign up for the portal?: No CODE STATUS:: DNR/DNI INSURANCE COVERAGE / FINANCIAL ISSUES:: [facility]/ [facility] CURRENT HOME/COMMUNITY SERVICES/EQUIPMENT:: Isaura uses a 4WW for ambulation. She has [facility] moderate needs. Her case resource manager is Leela Rivas from . PRIMARY CARE PHYSICIAN:: Sebastián Stephens POTENTIAL DISCHARGE NEEDS:: evaluations for further needs, follow up appointments. PATIENT/FAMILY EDUCATION NEEDS:: Review discharge instructions regarding activity levels and medications, discussion of self care needs including ask me three. ANTICIPATED BARRIERS TO DISCHARGE:: None identified. TRANSPORTATION:: Via private vehicle, likely RCT. PLAN:: Anticipate Isaura will return home when medically cleared. She will transport via private vehicle by RCT, coordinated by CM. She will follow up with her PCP and discharge plan of care. CM will continue to follow.
--- NOTE | 2021-09-20 15:05 | W.PM.PROGNOT ---
Date of Service Date of service: 09/20/21 Time of Service: 10:00 Assessment and Plan Assessment and plan (1) COPD exacerbation: Status: Acute Assessment and plan: will admit to med/surg received stack nebulilzers for symptoms. not hypoxic, CXR was clear, no evidence of CHF, PE or pneumonia by exam, labs and imagining. procalcitonin added, will hold off on antibiotics until resulted. covid and influenza swab pending. she received prednisone 40 mg which will continue daily. continue respiratory inhalers and duoneb prn. Exam Narrative Exam Narrative: Constitutional: well and [id number], tachypneic but speaking in full sentences HENT: head atraumatic/normocephalic/normal inspection, mucous membranes moist Eyes: conjunctiva normal, sclera normal, pupils 3mm b/l Neck: no stridor, normal ROM, trachea midline Chest: normal inspection Resp: Increased work of breathing, diffuse expiratory wheeze bilaterally, no rales, no rhonchi Cardio: normal rate, normal rhythm, no murmur appreciated GI: abdomen soft, non-tender, non-distended Back: normal inspection, no rash Skin: warm, dry, normal color, no rash Neuro: alert, not altered, grossly non-focal, normal tone Ext: +1 pitting edema bilateral lower extremities, no posterior calf tenderness to palpation Psych: normal mood, normal affect, normal behavior Objective Last Vital Signs Temp 97.3 F L 09/20/21 11:36 Pulse 75 09/20/21 11:36 Resp 18 09/20/21 11:36 BP 120/59 L 09/20/21 11:36 Pulse Ox 97 09/20/21 11:36 Laboratory Results - last 24 hr 09/19/21 09/19/21 09/19/21 14:00 14:08 15:55 WBC RBC Hgb Hct MCV MCH MCHC RDW Plt Count MPV Immature Gran % Neutrophils % Lymphocytes % Monocytes % Eosinophils % Basophils % Nucleated RBC % Absolute Neutrophils Absolute Lymphocytes Absolute Monocytes Absolute Eosinophils Absolute Basophils D-Dimer 501 H Sodium Potassium Chloride Carbon Dioxide Anion Gap BUN Creatinine Estimated GFR/1.73 m2 Glucose Calcium Troponin I Procalcitonin < 0.1 COVID-19 Source Nasopharynx SARS-CoV-2 (PCR) Negative Influenza Type A (PCR) Negative Influenza Type B (PCR) Negative RSV (PCR) Negative 09/19/21 09/20/21 09/20/21 17:20 06:25 06:25 WBC 17.19 H D RBC 4.31 Hgb 9.3 L Hct 31.0 L MCV 71.9 L MCH 21.6 L MCHC 30.0 L RDW 16.0 H Plt Count 304 MPV 9.0 Immature Gran % 0.5 Neutrophils % 72.8 Lymphocytes % 17.2 Monocytes % 7.7 Eosinophils % 1.3 Basophils % 0.5 Nucleated RBC % 0 Absolute Neutrophils 12.51 H Absolute Lymphocytes 2.96 Absolute Monocytes 1.32 H Absolute Eosinophils 0.22 Absolute Basophils 0.09 D-Dimer Sodium 140 Potassium 3.8 Chloride 105 Carbon Dioxide 27.3 Anion Gap 7.7 BUN 12 Creatinine 0.7 Estimated GFR/1.73 m2 >= 60.00 Glucose 135 H Calcium 8.8 Troponin I < 50 Procalcitonin COVID-19 Source SARS-CoV-2 (PCR) Influenza Type A (PCR) Influenza Type B (PCR) RSV (PCR)
--- NOTE | 2021-09-20 16:22 | W.PM.PROGNOT ---
Date of Service Date of service: 09/20/21 Time of Service: 10:00 Assessment and Plan Assessment and plan (1) COPD exacerbation: Status: Acute Assessment and plan: Pt will stay one more night on med-surg COPD exacerbation symptoms are resolving,room air, not hypoxic Will continue nebulizers PRN for exacerbation symptoms; LABA/ LAMA ordered. COVID and influenza were negative will continue daily prednisone 40 mg continue respiratory inhalers and duoneb prn. Will continue Guafenesin and Benzonatate for coughing Will continue Acapella and IS while awake BMP in AM (2) Hypertension: Status: Chronic Assessment and plan: Continue management with home med regimen (3) Leukocytosis: Status: Acute Assessment and plan: WBC up at 17.9 and procalcitonin is negative patient is on prednisone CBC in AM (4) Diabetes: Status: Chronic Assessment and plan: Blood sugar 136 Blood sugar monitoring AC and HS with sensitive SSI expecting rise in blood sugars due to steroids therapy (5) DVT prophylaxis: Status: Acute Assessment and plan: Will continue on Enoxaparin and TEDS Subjective Subjective Interval history since last seen: Patient reports sleeping well last night and feeling better than when she came to the hospital. She reports no problem eating, and speaks in full sentences. She reports expectoration when coughing. Exam Const General: cooperative, comfortable and no acute distress HENMT Head: normal to inspection and normocephalic Eyes General: appearance normal, both eyes and all related structures Neck Neck: normal visual inspection and full ROM Chest Other: Symmetrical bilateral expansion Resp Effort & Inspection: normal respiratory effort and able to speak in complete sentences Auscultation: wheezes (Mostly laryngeal ) expiratory wheezes and right upper Cardio Jugular venous pressure: no JVD Palpation: normal PMI Rhythm: regular rhythm Heart Sounds: S1 normal and S2 normal Pulses: brachial pulses present and dorsalis pedis present GI Other: Round abdomen, non-tender, non-distended,soft. Other: Voiding QS Skin Other: Intact Neuro General: patient alert, patient awake, patient oriented x3 and no focal motor deficits Cognition: normal cognition Speech: other (slow speaking pattern.) Extrem General: normal to inspection, full ROM, capillary refill normal, no joint enlargement and no pedal edema Psych Appearance: grossly normal Objective Last Vital Signs Temp 97.3 F L 09/20/21 11:36 Pulse 75 09/20/21 11:36 Resp 18 09/20/21 11:36 BP 120/59 L 09/20/21 11:36 Pulse Ox 97 09/20/21 11:36 Laboratory Results - last 24 hr 09/19/21 09/19/21 09/19/21 14:00 15:55 17:20 WBC RBC Hgb Hct MCV MCH MCHC RDW Plt Count MPV Immature Gran % Neutrophils % Lymphocytes % Monocytes % Eosinophils % Basophils % Nucleated RBC % Absolute Neutrophils Absolute Lymphocytes Absolute Monocytes Absolute Eosinophils Absolute Basophils Sodium Potassium Chloride Carbon Dioxide Anion Gap BUN Creatinine Estimated GFR/1.73 m2 Glucose Calcium Troponin I < 50 Procalcitonin < 0.1 COVID-19 Source Nasopharynx SARS-CoV-2 (PCR) Negative Influenza Type A (PCR) Negative Influenza Type B (PCR) Negative RSV (PCR) Negative 09/20/21 09/20/21 06:25 06:25 WBC 17.19 H D RBC 4.31 Hgb 9.3 L Hct 31.0 L MCV 71.9 L MCH 21.6 L MCHC 30.0 L RDW 16.0 H Plt Count 304 MPV 9.0 Immature Gran % 0.5 Neutrophils % 72.8 Lymphocytes % 17.2 Monocytes % 7.7 Eosinophils % 1.3 Basophils % 0.5 Nucleated RBC % 0 Absolute Neutrophils 12.51 H Absolute Lymphocytes 2.96 Absolute Monocytes 1.32 H Absolute Eosinophils 0.22 Absolute Basophils 0.09 Sodium 140 Potassium 3.8 Chloride 105 Carbon Dioxide 27.3 Anion Gap 7.7 BUN 12 Creatinine 0.7 Estimated GFR/1.73 m2 >= 60.00 Glucose 135 H Calcium 8.8 Troponin I Procalcitonin COVID-19 Source SARS-CoV-2 (PCR) Influenza Type A (PCR) Influenza Type B (PCR) RSV (PCR)
--- NOTE | 2021-09-20 16:29 | CHAPLAIN ---
Isaura was resting in bed when I visited. She easily engaged in a conversation. She told me that she lives alone at the [facility] and has not family. Her boyfriend of 15 years, 8 years ago, and she still misses him, she said. We talked about how the feeling stays and stays. She said her boyfriend bled to at [facility]. Isaura said she's hear because she's wheezing and she hopes the doctor will give her something to help her sleep tonight. I will continue to visit.
--- NOTE | 2021-09-20 18:49 | W.PM.PROGNOT ---
Date of Service Date of service: 09/20/21 Time of Service: 18:49 Assessment and Plan Assessment and plan (1) COPD exacerbation: Status: Acute Assessment and plan: continue prednisone 40 mg daily for 5 day burst, may need slow taper continue respiratory inhalers and duoneb prn. no evidence of pneumonia on xray, procal negative. no fevers. white count bump most likely d/t steroids. (2) Diabetes mellitus: Status: Chronic Assessment and plan: last A1C 6.8 in 2018 on our records continue hold home oral medication and monitor while hospitalized will add sliding scale coverage with blood sugars ac/hs now that she staying one more night anticipate hyperglycemia in setting of steroid use (3) Essential hypertension: Status: Acute Assessment and plan: continue home medication and monitor. discussed with DR alvarado Subjective Subjective Patient reports: no new complaints, feels better, tolerating liquids well, tolerating a regular diet, voiding w/o difficulty and afebrile Interval history since last seen: patient reports improvement since admission in respiratory status. still will moist productive cough, clear sputum. no fevers overnight, no oxygen requirements. Exam Const General: cooperative, healthy appearing and comfortable Nutritional Appearance: average body habitus Orientation: alert, awake and oriented x3 HENMT Head: normal to inspection and atraumatic Mouth: oral mucosae normal Chest Chest: normal inspection of the chest Resp Effort & Inspection: cough Quality of cough: wet (moist, clear sputum) Auscultation: wheezes expiratory wheezes Cardio Rate: regular rate Rhythm: regular rhythm GI Palpation: soft Auscultation: normal bowel sounds Skin General skin exam: no rashes or lesions noted Neuro General: patient alert, patient awake, patient oriented x3 and no focal motor deficits Extrem General: normal to inspection and no pedal edema Objective Last Vital Signs Temp 36.7 C 09/20/21 18:16 Pulse 87 09/20/21 18:16 Resp 20 09/20/21 18:16 BP 130/57 L 09/20/21 18:16 Pulse Ox 95 09/20/21 18:16 Laboratory Results - last 24 hr 09/20/21 09/20/21 06:25 06:25 WBC 17.19 H D RBC 4.31 Hgb 9.3 L Hct 31.0 L MCV 71.9 L MCH 21.6 L MCHC 30.0 L RDW 16.0 H Plt Count 304 MPV 9.0 Immature Gran % 0.5 Neutrophils % 72.8 Lymphocytes % 17.2 Monocytes % 7.7 Eosinophils % 1.3 Basophils % 0.5 Nucleated RBC % 0 Absolute Neutrophils 12.51 H Absolute Lymphocytes 2.96 Absolute Monocytes 1.32 H Absolute Eosinophils 0.22 Absolute Basophils 0.09 Sodium 140 Potassium 3.8 Chloride 105 Carbon Dioxide 27.3 Anion Gap 7.7 BUN 12 Creatinine 0.7 Estimated GFR/1.73 m2 >= 60.00 Glucose 135 H Calcium 8.8
[2021-09-20] MEDS: Benzonatate 200 MG CAP PO (20:33)
[2021-09-20] MEDS: QUEtiapine 100 MG TAB 150 MG PO (21:13)
[2021-09-20] MEDS: Simvastatin 40 MG TAB PO (21:13)
[2021-09-21 04:25] VITALS: BP 119/76; PULSE 77; RESP 18; TEMP 36.5; O2SAT 94
[2021-09-21 05:31] VITALS: RESP 2
[2021-09-21] MEDS: Albuterol/Ipratropium 3 ML UPD VIAL UPD (05:31)
[2021-09-21 07:25] VITALS: BP 117/62; PULSE 79; RESP 18; TEMP 36.2; O2SAT 93
[2021-09-21] MEDS: Propranolol 40 MG TAB PO (08:43)
[2021-09-21] MEDS: Losartan 50 MG TAB PO (08:43)
[2021-09-21] MEDS: Nystatin POWDER 60 GM JAR TP ×2 (08:43→14:24)
[2021-09-21] MEDS: Enoxaparin 40 MG/0.4 ML SYR SC (08:43)
[2021-09-21] MEDS: Insulin Aspart 300 UNITS/3 ML PEN SC ×2 (08:44→12:16)
[2021-09-21] MEDS: guaiFENesin 600 MG TABCR PO (08:44)
[2021-09-21] MEDS: Pantoprazole 40 MG TABCR PO (08:44)
[2021-09-21] MEDS: predniSONE 20 MG TAB 40 MG PO (08:44)
[2021-09-21] MEDS: Calcium 600mg/Vit D 200U TAB 1 TAB PO (08:44)
[2021-09-21] MEDS: Magnesium Oxide 400 MG TAB PO (08:44)
[2021-09-21] MEDS: Tiotropium/Olodaterol 10 PUFF INHALER 2 PUFF IH (08:59)
[2021-09-21 10:09] VITALS: PULSE 80; RESP 20; RESP 22; O2SAT 93; O2SAT 95
--- NOTE | 2021-09-21 12:36 | W.PM.DS.N ---
Date of service: 09/21/21 Time of Service: 12:36 DS: Diagnosis Discharge Diagnosis (1) COPD exacerbation: Start date: 09/21/21 Start time: 12:36 Status: Resolved Asessment and Plan: Patient doing well. Eager to be discharged home. LSC. No wheezing or SOB. Exercise oximetry with patient requiring no oxygen. She is on room air 93-94%. On prednisone will continue burst as she is clear and not requiring oxygen. (2) Diabetes mellitus: Start date: 09/21/21 Start time: 12:39 Status: Chronic Asessment and Plan: Will resume home oral medications on discharge. Will anticipate higher glucose levels d/t steroids. (3) Essential hypertension: Start date: 09/21/21 Start time: 12:41 Status: Chronic Asessment and Plan: resume home medications. discussed with Dr. Serrato. Discharge Plan Disposition Patient Disposition: HOME W/HOME HEALTH SERVICE Condition: Good Discharge Details Reason For Visit: COPD Exacerbation Admit Date/Time: 09/19/21 15:33 Admit Provider: Osmin Ling Attending Provider: Osmin Ling Primary Care Provider: Sebastián Stephens Hospital Course Hospital Course: Patient was admitted to [facility] after seen at urgent care and sent to ED for SOB with wheezing. She had updrafts with oral prednisone but was still too SOB to discharge and at one point documented to have oxygen. She was admitted weaned of oxygen, given updrafts, IS, acapella, placed on steroids. HF and infection r/o. Today she feels good. C, exercise oxitmetry with her ambulatory not requiring her to have to sit or wear oxygen. She states she wants to go home therefore she is being discharged with HH services. Home Meds and New Rx's Prescriptions: New benzonatate 200 mg Capsule 200 mg PO TID PRNQty: 20 0RF prednisone 20 mg Tablet 40 mg PO DAILY Qty: 6 0RF guaifenesin [Mucinex] 600 mg Tablet Extended Release 12hr 600 mg PO BID Qty: 20 0RF Continued lactulose 10 gram/15 mL solution 15 ml PO DAILY PRN (Reason: Constipation) 0RF quetiapine 100 mg tablet 150 mg PO HS 0RF glyburide-metformin 1 EACH tablet 500 tab-cap PO BID 0RF pantoprazole 40 MG tablet,delayed release (DR/EC) 40 mg PO DAILY 0RF simvastatin 40 MG tablet 40 mg PO HS 0RF calcium carbonate-vitamin D3 1 EACH tablet 1 ea PO BID 0RF magnesium oxide 400 mg magnesium Capsule 400 mg PO BID 0RF losartan 50 mg tablet 50 mg PO DAILY 0RF Label Comments: TAKE ONE TABLET BY MOUTH EVERY DAY propranolol 40 mg tablet 40 mg PO BID 0RF Label Comments: TAKE ONE TABLET BY MOUTH TWICE A DAY albuterol sulfate 90 mcg/actuation aerosol powdr breath activated 2 inh inhalation Q4H PRNQty: 1 0RF Stiolto Respimat 2.5-2.5 mcg/actuation mist 2 puff inhalation DAILY Qty: 4 0RF No Action (DME) 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 See Rx Instructions .ROUTE .MEDSUPPLY Qty: 1 0RF Rx Instructions: As directed Discharge Instructions Instructions: COPD (Chronic Obstructive Pulmonary Disease) (DC), How Your Lungs Work (DC) Additional Instructions: Take medications as prescribed. Start taking the prednisone tomorrow as you have already received todays dose. Follow up with PCP in 1-2 weeks Activity:: Activity as Tolerated Equipment/Supplies:: No Equipment Needed Diet:: Carb Counting Discharge Orders Discharge Orders: Discharge Order (Routine); Ordered 09/21/21 Ordered By: Kanwal Collier DS: Summary Time Spent with Patient providing and/or coordinating discharge services: Less than 30 minutes Status at Discharge Functional status at discharge: independent ambulation Overall status at discharge: patient is progressing back to baseline Mental Status: mental status grossly normal Speech and Movement: speech and movement normal Mood: congruent mood Affect: normal affect Exam Const General: cooperative, healthy appearing and comfortable Nutritional Appearance: average body habitus Orientation: alert, awake and oriented x3 HENMT Head: normal to inspection and atraumatic Mouth: oral mucosae normal Chest Chest: normal inspection of the chest Resp Auscultation: clear to auscultation bilaterally Cardio Rate: regular rate Rhythm: regular rhythm GI Palpation: soft Auscultation: normal bowel sounds Skin General skin exam: no rashes or lesions noted Neuro General: patient alert, patient awake, patient oriented x3 and no focal motor deficits Extrem General: normal to inspection and no pedal edema Psych Mental Status: mental status grossly normal Speech and Movement: speech and movement normal Mood: congruent mood Affect: normal affect DS: Data Vitals/I&O Vitals and I&O: Vital Signs Temperature 36.2 C L 09/21/21 07:25 Temperature Source Tympanic 09/21/21 07:25 Pulse 79 09/21/21 07:25 Pulse Rhythm Regular 09/21/21 03:30 Respiratory Rate 18 09/21/21 07:25 Respiratory Effort Labored 09/21/21 03:30 Respiratory Depth Deep 09/21/21 03:30 Respiratory Pattern Irregular 09/21/21 03:30 Blood Pressure 117/62 09/21/21 07:25 Blood Pressure Mean 72 09/19/21 16:24 Blood Pressure Position Sitting 09/19/21 13:39 Pulse Oximetry 93 09/21/21 07:25 Oxygen Delivery Method Room Air 09/21/21 07:25 Oxygen Flow Rate 0 09/21/21 07:25 Pain Level 0 09/21/21 07:25 Intake & Output 09/20/21 09/21/21 09/21/21 23:59 11:59 23:59 Intake Total 640 / 1380 640 / 640 Balance 640 / 1380 640 / 640 Intake: IV 10 Oral 630 / 1350 630 / 630 Other: Urine Color Yellow Yellow Urine Appearance Cloudy Clear Urine Odor Normal Normal Comment Could not measure urine Could not measure void Voiding Methods Toilet Toilet Data Completed and Pending Completed studies during hospitalization [Text1]: FINDINGS: Single AP portable view. Heart size is upper normal.? The mediastinum is not widened. Lungs are clear.? No infiltrates nor obvious pleural effusions. IMPRESSION: No acute pulmonary findings on this single AP portable view of the chest. Labs on day of discharge: Preliminary micro results at discharge 09/19/21 14:42 Blood Culture - Preliminary Blood NO GROWTH 24 HOURS 09/19/21 14:42 Blood Culture - Preliminary Blood NO GROWTH 24 HOURS PFSH All Active Problems (Updated 09/21/21 @ 12:57 by Kanwal Collier NP) Essential hypertension (Chronic 04/02/13) Diabetes mellitus (Chronic) DVT prophylaxis (Acute) Diabetes (Chronic) Leukocytosis (Acute) Hypertension (Chronic) Family history of colon cancer (Acute) Diverticulitis of large intestine (Acute) Colonoscopy planned (Acute) Abnormal CT scan (Acute) Abdominal pain (Acute) Colon abnormality (Acute) Illiterate (Chronic) able to manage independently Shortness of breath (Acute) COVID-19 (Acute) with persistent cough Transient leg weakness (Acute) Bronchospasm (Acute) Atypical chest pain (Acute) Palliative care status (Chronic) Financial difficulties (Chronic) Constipation (Chronic) takes lactulose to tx Encounter for screening colonoscopy (Acute) DNI (do not intubate) (Chronic) DNR (do not resuscitate) (Chronic) Palliative care patient (Chronic) Learning disability (Chronic) manages her own medications Diverticulosis (Acute) COPD (chronic obstructive pulmonary disease) (Chronic) Anemia (Chronic) Medical History Anxiety Asthma (04/02/13) Benign essential tremor Carpal tunnel syndrome Cerumen impaction (12/29/13) CHI (closed head injury) Chronic low back pain Cyst of ovary Laparoscopic bilateral salpingo-oophorectomy on 04-09-[address]Anne Medina. Path pending. Cyst of ovary (03/12/13) 02/26/13 L ovary [id number], R ovary [id number]. Not complex. Depression (04/02/13) Dry cough asking for humidifier Eczema Fall GERD (gastroesophageal reflux disease) Goals of care, counseling/discussion Hair loss Hemorrhoid HTN (hypertension) Hypercholesterolemia Hyperlipidemia (04/02/13) Hypomagnesemia Learning disability Leukocytosis (leucocytosis) Lives alone with help available NO DPOA yet; ? state guardian? 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 Arthroplasty of knee L knee Dr Fuentes Cholecystectomy laparoscopic 03/2011 Extraction of cataract in [place] H/O arthroscopy of left knee (~01/2007) History of colonoscopy (~07/24/19) Oophrectomy, Both (04/09/13) laparotomy. aoc and kk. Family History Sister Heart disease Son Parent-child estrangement nec Under care of [facility] service life sentence for murder Daughter Parent-child estrangement nec Substance abuse Social History Smoking/Tobacco Use Status: Former Tobacco Use tobacco type: cigarettes Tobacco: How many years used: 40 Smoking risk assessment performed?: Yes Alcohol Intake: former Drug use: Never Substance use type: does not use Caregiver/Support person: No Household members: none Housing: apartment Number of Children: 0 Communication Needs: Cannot Read Education Level: middle school Details: finished 6th grade only Do you need help understanding health information?: Always current occupation: always disabled; worked as [employer] for 5 years in her late teens, early 20s Pets and animals: No What is your relationship status?: How often do you talk on the phone with friends or family?: never How often do you get together with friends or relatives?: never Panel score (0-1 are the most socially isolated patients): 0 What type of physical activity do you participate in: walking and irregular exercise Duration: < 15 minutes/day Frequency: 1-2 times per week Special pankaj needs: No Agree to transfusion: Yes Seatbelt use: always Drive intox or ride w/intox 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 Estranged from both her children, no family, no DPOA. Daughter with SA; her children taken from her. Son incarcerated for life.
--- NOTE | 2021-09-21 13:02 | PDOC.HHF2F_ITS ---
Home Health Certification Home Health Certification: 1. Encounter Date and Reason I certify that Isaura Gaviria was seen by Kanwal Collier on 09/21/21 and that I had a [id number] encounter with this patient that meets the physician face to face encounter requirements. 2. Clinical Findings Supporting Skilled Need and Homebound Status I certify that home health services are medically necessary, include either intermittent mcfp and/or physical/speech therapy, and that this patient is homebound in that absences from the home require considerable and taxing effort and are infrequent or of short duration, or are attributable to the need to receive medical care. [X] (a) Attached documentation from encounter provides clinical findings supporting skilled need and homebound status (including what assistance patient requires to leave the home). 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 3. Certification and Authentication I certify that I composed the above information based on my clinical judgement relating to this patient's medical condition and, if applicable, clinical findings communicated to me by the NPP or inpatient physician who performed the Home Health Referral. All further orders will be obtained through __[facility]ebastin[facility] Stephens (Community Based Physician - PCP)
--- NOTE | 2021-09-21 18:33 | CMDISCH_ITS ---
- If Service Date Differs Date of service: 09/21/21 Time of Service: 18:34 LACE Index Scoring Tool - Questions: Length of Stay (in days): 2 Acuity (Admit via E.D.?): Yes Comorbidities: Diabetes w/o Complication, Chronic Pulmonary Disease E.D. Visits: 10 - Answers: Total Score: 12 Risk of Readmission: High Risk Care Management Discharge Reason for Hospitalization: COPD exacerbation Discharge Plan: Isaura returned home today with new HH RN, PT, OT, UTILITY LOCATE TECHNICIAN. She was driven home via private vehicle by [facility], coordinated by CM. She will follow up with her PCP and discharge plan of care. She was happy to be going home. Patient/Family Education Needs: Review discharge instructions regarding activity levels and medications, discussion of self care needs including ask me three. Services Needed at Discharge: Home Health Care Services (HH RN, PT, OT, UTILITY LOCATE TECHNICIAN), Transportation ([facility] private vehicle)
== END 2021-09-21 14:40 | disposition home health service (06) ==
LOC: ER 15:41 → MS 22:16
PROVIDERS: Nurse Practitioner Acute Care; Admitting Provider Internal Medicine; Emergency Provider Student in an Organized Health Care Education/Training Program; PCP Nurse Practitioner Family; Visit Provider Internal Medicine
DX: J44.1 Chronic obstructive pulmonary disease with (acute) exacerbation (principal); I10 Essential (primary) hypertension; E11.9 Type 2 diabetes mellitus without complications; Z79.84 Long term (current) use of oral hypoglycemic drugs; Z80.0 Family history of malignant neoplasm of digestive organs; Z55.0 Illiteracy and low-level literacy; Z66 Do not resuscitate; K59.00 Constipation, unspecified; R05.3 Chronic cough; U09.9 Post COVID-19 condition, unspecified; D64.9 Anemia, unspecified; K21.9 Gastro-esophageal reflux disease without esophagitis; E78.00 Pure hypercholesterolemia, unspecified; G25.81 Restless legs syndrome; N39.3 Stress incontinence (female) (male)
CPT/HCPCS: 36415; 80048; 80053; 82805; 84145; 87040; 87637; 93005; 94618; 94640; 94644; 96365; 99285; J1650; 71045; 83605; 83735; 83880; 84484; 85025; 85379; 93010; 99217; 99220; 99226; G0378; J3475; J7512; J7611; J7620

== ENCOUNTER → 2021-10-05 09:31 | Outpatient (CLI) | payer MEDICARE, MEDICAID, SELFPAY ==
--- NOTE | 2021-10-05 09:10 | DI.RAD_ITS ---
Exam(s) XR CHEST 2V PA LATERAL EXAM: XR CHEST 2V PA LATERAL CLINICAL HISTORY: DYSPNEA, R06.00. TECHNIQUE: 2D digital imaging was performed. COMPARISON: CR XR CHEST 2V PA LATERAL from 09/02/2020 CR XR PORTABLE CHEST AP from 05/05/2021 CR XR PORTABLE CHEST AP from 08/22/2021 CR XR PORTABLE CHEST AP from 09/19/2021 FINDINGS: 2 views: Heart size is normal. The mediastinum is not widened. On the frontal view the lungs appear clear. However, on the lateral view there is some increased mar kings posteriorly possibly subtle infiltrate. Most recent lateral chest x-ray was August 2020 this fi nding appears new since that date. Pleural effusions IMPRESSION: Subtle evidence of possible lower lobe infiltrate evident on the lateral view only. Appropriate foll ow-up recommended. Consider CT scan. DATA REPOSITORY: RADIATION DOSE DELIVERED:
== END ==
PROVIDERS: PCP Nurse Practitioner Family; Visit Provider Nurse Practitioner Family
DX: R06.09 Other forms of dyspnea (principal); R91.8 Other nonspecific abnormal finding of lung field
CPT/HCPCS: 71046

== ENCOUNTER → 2021-11-03 02:34 | Outpatient (CLI) | payer MEDICARE, MEDICAID, SELFPAY ==
--- NOTE | 2021-11-03 13:52 | DI.CT_ITS ---
Exam(s) CT CHEST WO EXAM: CT CHEST WO CLINICAL HISTORY: DYSPNEA R06.00, FU FROM CXR TECHNIQUE: CT examination of the chest was performed without contrast administration.. COMPARISON: CT CT CHEST PE CTA from 04/21/2021 CR XR CHEST 2V PA LATERAL from 10/05/2021 FINDINGS: Images obtained through the upper abdomen show unremarkable appearance of visualized portions of the liver and spleen. Note is made of a prior cholecystectomy. There is an apparent left renal cyst wi th wall calcification. Note is made of coronary artery calcification. There is no mediastinal or hilar adenopathy. Mediastinal vascular structures appear intact by noncon trast criteria. Tracheobronchial tree appears intact. No pleural effusion or pleural-based mass. The lungs are predominantly clear, there are predominantly linear areas of increased radiodensity in the left lung base decreased from prior examination of April 2021 and probably representing minor s carring from prior pneumonitis. No new pulmonary nodule or consolidation is seen.. IMPRESSION: Negative noncontrast chest CT. RADIATION DOSE DELIVERED: 534.11mGy.cm Total DLP CTDIvol 534.11mGy.cm Total DLP !Error CTDIvol RADIATION OPTIMIZATION: All CT scans at this facility use at least one of these dose optimization te chniques: automated exposure control; mA and/or kV adjustment per patient size (includes targeted exa ms where dose is matched to clinical indication); or iterative reconstruction.
== END ==
PROVIDERS: PCP Nurse Practitioner Family; Visit Provider Nurse Practitioner Family
DX: R06.09 Other forms of dyspnea (principal)
CPT/HCPCS: 71250

== ENCOUNTER 2022-05-01 15:22 | Outpatient (REF) | payer MEDICARE, MEDICAID, SELFPAY ==
[2022-05-01 15:37] LABS: Abs Immature Grans 0.04 10^3/uL (0.0-0.06); Absolute Basophil Count 0.12 10^3/uL (0.0-0.2); Absolute Eosinophil Count 0.57 10^3/uL (0.0-0.7); Absolute Lymphocyte Count 2.84 10^3/uL (1.2-3.4); Absolute Monocyte Count 0.64 10^3/uL (0.1-0.8); Absolute Neutrophil Count 6.52 10^3/uL (1.2-6.7); Basophils % 1.1; Eosinophils % 5.3; HGB 9.2 g/dL (11.2-15.7); Immature Grans % 0.4; Lymphocytes % 26.5; MCH 20.2 pg (27.0-33.0); MCHC 28.8 % (32.0-36.0); MCV 70 fL (80-95); MPV 9.8 fL (8.0-11.0); Neutrophils % 60.7; Platelet Count 336 10^3/uL (130-400); RBC 4.55 10^6/uL (3.93-5.22); RDW 17.7 % (11.7-14.6); RDW-SD 44.3 fL; WBC 10.73 10^3/uL (4.4-10.8)
[2022-05-01 16:25] LABS: ALT 23 U/L (14-59); AST 20 U/L (15-37); Albumin 3.7 g/dL (3.4-5.0); Alkaline Phosphatase 109 U/L (46-116); BUN 13 mg/dL (7-18); Bilirubin, Total 0.3 mg/dL (0.2-1.0); CREATININE 0.8 mg/dL (0.55-1.02); Calcium 9.2 mg/dL (8.5-10.1); Calculated LDL 68 mg/dL (<100); Chloride 106 mmol/L (98-107); Cholesterol 140 mg/dL (<200); Diff Comment RBC Morph Reviewed; Estimated GFR 78.24 (mL/min/1.73m2); Glucose 138 mg/dL (74-106); HDL Cholesterol 47 mg/dL (40-60); Microcytosis 1+; Sodium 143 mmol/L (136-145); Total Protein 7.4 g/dL (6.4-8.2); Triglyceride 127 mg/dL (<150)
[2022-05-01 18:08] LABS: Hemoglobin A1C 7.4 % (<5.7)
== END 2022-05-01 15:23 | disposition home or self-care (01) ==
LOC: NCHCN 15:22
PROVIDERS: Visit Provider Nurse Practitioner Family
DX: E78.5 Hyperlipidemia, unspecified (principal); I10 Essential (primary) hypertension; D72.829 Elevated white blood cell count, unspecified; E11.9 Type 2 diabetes mellitus without complications
CPT/HCPCS: 80053; 80061; 83036; 85025

== ENCOUNTER 2022-10-17 20:07 | Emergency (ER) | payer MEDICARE, MEDICAID, SELFPAY ==
[2022-10-17 20:11] VITALS: BP 160/107; PULSE 82; RESP 20; TEMP 36.6; O2SAT 98
--- NOTE | 2022-10-17 20:15 | DI.CT_ITS ---
Exam(s) CT HEAD WO EXAM: CT HEAD WO CLINICAL HISTORY: dizzy, eval for stroke. TECHNIQUE: Imaging Protocol: Axial computed tomography images with coronal and sagittal reformatted images were created and reviewed COMPARISON: CT CT HEAD WO from 10/24/2018 FINDINGS: The examination is limited due to patient motion artifact. Ventricles and Extra axial spaces: Normal in size and morphology for the patient's age. Hemorrhage: None. Cerebral parenchyma: No evidence of an acute territorial infarct. There are areas of decreased atten uation in the white matter consistent with small vessel ischemic disease. Midline shift: None. Brainstem/Cerebellum: Normal. Calvarium: Normal. Visualized Paranasal sinuses/Mastoids: Clear. Soft Tissues: Unremarkable. IMPRESSION: No acute intracranial process. RADIATION DOSE DELIVERED: 811.12mGy.cm Total DLP DATA REPOSITORY: All CT scans at this facility are submitted to the National Radiology Data Registry (NRDR) Dose Index Registry (DIR) with the [employer] (A[employer]). RADIATION OPTIMIZATION: All CT scans at this facility use at least one of these dose optimization te chniques: automated exposure control; mA and/or kV adjustment per patient size (includes targeted exa ms where dose is matched to clinical indication); or iterative reconstruction.
[2022-10-17] MEDS: Normal Saline 500 ML IV (20:29)
[2022-10-17] MEDS: Meclizine 25 MG TAB PO (20:29)
[2022-10-17 21:20] LABS: Abs Immature Grans 0.06 10^3/uL (0.0-0.06); Absolute Basophil Count 0.09 10^3/uL (0.0-0.2); Absolute Eosinophil Count 0.37 10^3/uL (0.0-0.7); Absolute Lymphocyte Count 2.54 10^3/uL (1.2-3.4); Absolute Monocyte Count 0.76 10^3/uL (0.1-0.8); Absolute Neutrophil Count 11.64 10^3/uL (1.2-6.7); Basophils % 0.6; Eosinophils % 2.4; HCT 29.5 % (36.0-46.0); HGB 8.8 g/dL (11.2-15.7); Immature Grans % 0.4; Lymphocytes % 16.4; MCH 20.2 pg (27.0-33.0); MCHC 29.8 % (32.0-36.0); MCV 68 fL (80-95); MPV 9.6 fL (8.0-11.0); Monocytes % 4.9; Neutrophils % 75.3; Platelet Count 310 10^3/uL (130-400); RBC 4.36 10^6/uL (3.93-5.22); WBC 15.46 10^3/uL (4.4-10.8)
[2022-10-17 21:34] LABS: ALT 19 U/L (14-59); AST 18 U/L (15-37); Albumin 3.7 g/dL (3.4-5.0); Alkaline Phosphatase 88 U/L (46-116); Anion Gap 9.4 mmol/L (3-11); BUN 12 mg/dL (7-18); Bilirubin, Total 0.4 mg/dL (0.2-1.0); CO2 24.6 mmol/L (21.0-32.0); CREATININE 0.8 mg/dL (0.55-1.02); Calcium 8.8 mg/dL (8.5-10.1); Chloride 100 mmol/L (98-107); Estimated GFR 77.75 (mL/min/1.73m2); Glucose 167 mg/dL (74-106); Potassium 3.8 mmol/L (3.5-5.1); Sodium 134 mmol/L (136-145); Total Protein 7.3 g/dL (6.4-8.2)
[2022-10-17 21:47] VITALS: PULSE 72; RESP 16; O2SAT 100
--- NOTE | 2022-10-17 21:47 | DI.VRAD_ITS ---
PROCEDURE INFORMATION: Exam: CT Head Without Contrast Exam date and time: 10/17/2022 8:59 PM Age: 72 years old Clinical indication: Dizziness TECHNIQUE: Imaging protocol: Computed tomography of the head without contrast. Radiation optimization: All CT scans at this facility use at least one of these dose optimization techniques: automated exposure control; mA and/or kV adjustment per patient size (includes targeted exams where dose is matched to clinical indication); or iterative reconstruction. COMPARISON: CT HEAD WO 10/24/2018 11:08 AM FINDINGS: Brain: Age-related involutional changes and chronic microvascular ischemic disease. No evidence for acute transcortical infarct. No mass effect or midline shift. No extra-axial collection. No acute intracranial hemorrhage. Basal cisterns are patent. Cerebral ventricles: No ventriculomegaly. Paranasal sinuses: Visualized sinuses are unremarkable. No fluid levels. Mastoid air cells: Visualized mastoid air cells are well aerated. Orbital cavities: Bilateral cataract surgery. Bones/joints: Unremarkable. No acute fracture. Soft tissues: Unremarkable. IMPRESSION: No evidence for acute transcortical infarct, acute intracranial hemorrhage, or mass effect. Dictated and Authenticated by: Khang Long MD. Ordering:TED Hong MD
--- NOTE | 2022-10-17 21:56 | W.ED.GENAD ---
Discharge Plan Disposition Patient Disposition: Home Discharge Details Chief Complaint: Abd Prob Clinical Impression: Acute dehydration, Dizziness Primary Care Provider: Cory Stephens RN,Sebastián ED Provider: Hal Olmstead Home Meds and New Rx's Prescriptions: No Action lactulose 10 gram/15 mL solution 15 ml PO DAILY PRN (Reason: Constipation) quetiapine 100 mg tablet 150 mg PO HS (DME) 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 See Rx Instructions .ROUTE .MEDSUPPLY Qty: 1 0RF Rx Instructions: As directed Stiolto Respimat 2.5-2.5 mcg/actuation mist 2 puff inhalation DAILY glyburide-metformin 1 EACH tablet 500 tab-cap PO BID docusate sodium [Colace] 100 mg capsule 100 mg PO BID Trelegy Ellipta 200-62.5-25 mcg blister with device 1 inh inhalation DAILY pantoprazole 40 MG tablet,delayed release (DR/EC) 40 mg PO DAILY benzonatate 200 mg Capsule 200 mg PO TID PRNQty: 20 0RF guaifenesin [Mucinex] 600 mg Tablet Extended Release 12hr 600 mg PO BID Qty: 20 0RF simvastatin 40 MG tablet 40 mg PO HS calcium carbonate-vitamin D3 1 EACH tablet 1 ea PO BID magnesium oxide 400 mg magnesium Capsule 400 mg PO BID losartan 50 mg tablet 50 mg PO DAILY Patient Comments: TAKE ONE TABLET BY MOUTH EVERY DAY propranolol 40 mg tablet 40 mg PO BID Patient Comments: TAKE ONE TABLET BY MOUTH TWICE A DAY albuterol sulfate 90 mcg/actuation aerosol powdr breath activated 2 inh inhalation Q4H PRNQty: 1 0RF Stiolto Respimat 2.5-2.5 mcg/actuation mist 2 puff inhalation DAILY Qty: 4 0RF Discharge Instructions Instructions: Dehydration (ED), Dizziness (ED) Additional Instructions: At this time your symptoms are likely from mild peripheral vertigo and mild dehydration. Please take the meclizine tablets as needed. You can take 1 tablet every 6 hours. Please drink plenty of fluids and stay well-hydrated. If you notice any worsening of your symptoms, or any new symptoms such as vomiting, diarrhea, fever, chills, shortness of breath, chest pain, numbness, weakness, or fainting , please return immediately to the emergency department for reevaluation. Please follow up with your primary care provider as soon as possible for reassessment and reevaluation. As always, it was a pleasure participating in your medical care today. Referrals: Cory Stephens RN,Sebastián [Primary Care Provider] - Medical Decision Making 71-year-old female with a past medical history of hypertension, high cholesterol, learning disability, asthma/COPD, GERD, presents today for evaluation of feeling weird. Patient states that she ate some white rice this afternoon, and I never should have done that, now I feel weird. Patient is not able to describe or add to what this weird feeling is. However she denies any chest pain, headache, cough, shortness of breath, vomiting, diarrhea, numbness, tingling, or weakness. She denies any headache or vision changes. She does state that when she turns her head quickly or moves her eyes quickly that she feels weird again. I do ask her if the feelings are similar to dizziness, but she denies this. No other complaints at this time. No other modifying factors. Exam demonstrates well-appearing female, minimally dry mucous membranes. No signs of focal neurologic deficits, imbalance, nystagmus, no other significant abnormalities. Suspect mild dehydration. Symptoms appear inconsistent with major stroke. UTI could be a component versus mild dehydration. We will get a CT scan of the head, gently rehydrate, get a UA, monitor closely and reassess. 10:41 PM On reassessment patient has complete resolution of her symptoms after the meclizine and a [address] scan negative for acute process. Laboratory work-up does demonstrate a mild white count, and a minimal drop in hemoglobin but is otherwise stable. She denies any bloody stools, or dark melena. No other complaints. Patient feels well and would like to go home. Patient stable for discharge. Recommend continued hydration at home, and meclizine as needed. We will give a few tablets for home. Suspect benign peripheral vertigo versus mild dehydration. Symptoms inconsistent with stroke or cardiac etiology. I have extensively reviewed the treatment plan and discharge instructions with the patient. I have addressed all patient concerns at this time. The patient was made aware of what symptoms to monitor for that would warrant a return to the emergency department. Discussed the plan with the patient, they demonstrate verbal understanding and agreement with our assessment and plan at this time. The documentation in this chart was dictated using [employer] dictation software. Please excuse any dictation errors. FINDINGS: Brain: Age-related involutional changes and chronic microvascular ischemic disease. No evidence for acute transcortical infarct. No mass effect or midline shift. No extra-axial collection. No acute intracranial hemorrhage. Basal cisterns are patent. Cerebral ventricles: No ventriculomegaly. Paranasal sinuses: Visualized sinuses are unremarkable. No fluid levels. Mastoid air cells: Visualized mastoid air cells are well aerated. Orbital cavities: Bilateral cataract surgery. Bones/joints: Unremarkable. No acute fracture. Soft tissues: Unremarkable. IMPRESSION: No evidence for acute transcortical infarct, acute intracranial hemorrhage, or mass effect. Thank you for allowing us to participate in the care of your patient. Dictated and Authenticated by: Khang Long MD 10/17/2022 9:47 PM Eastern Time ([place] & [place]) HPI General Date/Time Provider Initiated Documentation: 10/17/22 20:23. HPI Narrative: 71-year-old female with a past medical history of hypertension, high cholesterol, learning disability, asthma/COPD, GERD, presents today for evaluation of feeling weird. Patient states that she ate some white rice this afternoon, and I never should have done that, now I feel weird. Patient is not able to describe or add to what this weird feeling is. However she denies any chest pain, headache, cough, shortness of breath, vomiting, diarrhea, numbness, tingling, or weakness. She denies any headache or vision changes. She does state that when she turns her head quickly or moves her eyes quickly that she feels weird again. I do ask her if the feelings are similar to dizziness, but she denies this. No other complaints at this time. No other modifying factors. Related Data Home Medications Medication Instructions Recorded Confirmed pantoprazole 40 mg tablet,delayed 40 mg PO DAILY 02/20/13 10/17/22 release glyburide 5 mg-metformin 500 mg 500 tab-cap PO BID 09/22/16 10/17/22 tablet calcium carbonate 600 mg-vitamin 1 ea PO BID 10/10/17 10/17/22 D3 10 mcg (400 unit) tablet simvastatin 40 mg tablet 40 mg PO HS 10/10/17 10/17/22 magnesium oxide 400 mg PO BID 07/23/19 10/17/22 lactulose 10 gram/15 mL oral 15 ml PO DAILY PRN Constipation 10/18/20 10/17/22 solution quetiapine 100 mg tablet 150 mg PO HS 10/18/20 10/17/22 losartan 50 mg tablet 50 mg PO DAILY 11/04/20 10/17/22 inhalational spacing device #1 ea 06/17/21 10/17/22 (Aerochamber MV spacer) albuterol sulfate 90 mcg/actuation 2 inh inhalation Q4H PRN #1 ea 08/22/21 10/17/22 breath activated powder inhaler propranolol 40 mg tablet 40 mg PO BID 08/22/21 10/17/22 tiotropium 2.5 mcg-olodaterol 2.5 2 puff inhalation DAILY #4 grams 08/22/21 10/17/22 mcg/actuation mist for inhalation (Stiolto Respimat) benzonatate 200 mg capsule 200 mg PO TID PRN #20 caps 09/21/21 10/17/22 guaifenesin 600 mg tablet, 600 mg PO BID #20 tabs 09/21/21 10/17/22 extended release 12 hr (Mucinex) docusate sodium 100 mg capsule 100 mg PO BID 06/02/22 10/17/22 (Colace) fluticasone fur. 200 mcg-umeclid 1 inh inhalation DAILY 06/02/22 10/17/22 62.5 mcg-vilant 25 mcg inhalat.powder (Trelegy Ellipta) tiotropium 2.5 mcg-olodaterol 2.5 2 puff inhalation DAILY 06/06/22 10/17/22 mcg/actuation mist for inhalation (Stiolto Respimat) Previous Rx's Medication Instructions Recorded inhalational spacing device #1 ea 06/17/21 (Aerochamber MV spacer) albuterol sulfate 90 mcg/actuation 2 inh inhalation Q4H PRN #1 ea 08/22/21 breath activated powder inhaler tiotropium 2.5 mcg-olodaterol 2.5 2 puff inhalation DAILY #4 grams 08/22/21 mcg/actuation mist for inhalation (Stiolto Respimat) benzonatate 200 mg capsule 200 mg PO TID PRN #20 caps 09/21/21 guaifenesin 600 mg tablet, 600 mg PO BID #20 tabs 09/21/21 extended release 12 hr (Mucinex) Allergies Allergy/AdvReac Type Severity Reaction Status Date / Time thiopental sodium Allergy Skin Rash Unverified 10/17/22 20:14 [From Pentothal] General Stated Complaint: Abd Prob LYNNETTE: 4 Review of Systems All systems reviewed & are unremarkable except as noted in HPI and below PFSH All Active Problems (Updated 10/17/22 @ 22:45 by Hal Olmstead DO) Acute dehydration (Acute) Dizziness (Acute) Knee pain (Acute) Cough (Acute) Hypochromic microcytic anemia (Acute) COPD with acute exacerbation (Acute) Diarrhea (Acute) Blood in stool (Acute) Family history of colon cancer (Acute) Diverticulitis of large intestine (Acute) Colonoscopy planned (Acute) Abnormal CT scan (Acute) Illiterate (Chronic) able to manage independently Shortness of breath (Acute) COVID-19 (Acute) with persistent cough Transient leg weakness (Acute) Bronchospasm (Acute) Atypical chest pain (Acute) Palliative care status (Chronic) Financial difficulties (Chronic) Constipation (Chronic) takes lactulose to tx Encounter for screening colonoscopy (Acute) DNI (do not intubate) (Chronic) DNR (do not resuscitate) (Chronic) Palliative care patient (Chronic) Learning disability (Chronic) manages her own medications Diverticulosis (Acute) COPD (chronic obstructive pulmonary disease) (Chronic) Anemia (Chronic) Medical History Anxiety Asthma (04/02/13) Benign essential tremor Carpal tunnel syndrome Cerumen impaction (12/29/13) CHI (closed head injury) Chronic low back pain Constipation, chronic COPD exacerbation Cyst of ovary Laparoscopic bilateral salpingo-oophorectomy on 04-09-[address]Anne Medina. Path pending. Cyst of ovary (03/12/13) 02/26/13 L ovary [id number], R ovary [id number]. Not complex. Depression (04/02/13) Diabetes Diabetes mellitus Dry cough asking for humidifier Eczema Essential hypertension (04/02/13) Fall Family history of colon cancer in mother GERD (gastroesophageal reflux disease) Goals of care, counseling/discussion Hair loss Hemorrhoid HTN (hypertension) Hypercholesterolemia Hyperlipidemia (04/02/13) Hypertension Hypomagnesemia Learning disability Leukocytosis Leukocytosis (leucocytosis) Lives alone with help available NO DPOA yet; ? state guardian? 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 Arthroplasty of knee L knee Dr Fuentes Cholecystectomy laparoscopic 03/2011 Extraction of cataract in [place] H/O arthroscopy of left knee (~01/2007) History of colonoscopy (~07/24/19) Oophrectomy, Both (04/09/13) laparotomy. aoc and kk. Family History Sister Heart disease Son Parent-child estrangement nec Under care of fdc service life sentence for murder Daughter Parent-child estrangement nec Substance abuse Social History Smoking/Tobacco Use Status: Former Tobacco Use tobacco type: cigarettes Tobacco: How many years used: 40 Smoking risk assessment performed?: Yes Alcohol Intake: former Drug use: Never Substance use type: does not use Caregiver/Support person: No Household members: none Housing: apartment Number of Children: 0 Communication Needs: Cannot Read Education Level: middle school Details: finished 6th grade only Do you need help understanding health information?: Always current occupation: always disabled; worked as [employer] for 5 years in her late teens, early 20s Pets and animals: No What is your relationship status?: How often do you talk on the phone with friends or family?: never How often do you get together with friends or relatives?: never Panel score (0-1 are the most socially isolated patients): 0 What type of physical activity do you participate in: walking and irregular exercise Duration: < 15 minutes/day Frequency: 1-2 times per week Special pankaj needs: No Agree to transfusion: Yes Seatbelt use: always Drive intox or ride w/intox 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 Estranged from both her children, no family, no DPOA. Daughter with SA; her children taken from her. Son incarcerated for life. Exam Narrative Exam Narrative: 1.Const: Well-nourished, Well-developed, appearing stated age 2.Eyes: PERRL, no conjunctival injection, and symmetrical lids. 3.ENT: Atraumatic external nose and ears. Moist MM. Neck: Symmetric, trachea midline, No thyromegaly. No horizontal vertical or rotatory nystagmus. No vertical correction with test of skew 4.CVS: +S1/S2, No murmurs or gallops. Peripheral pulses 2+ and equal in all extremities. Brisk capillary refill in all extremities. 5.RESP: Unlabored respiratory effort. Clear to auscultation bilaterally. No wheezes rales or rhonchi 6.GI: Soft, Nontender/Nondistended, No hepatosplenomegaly. No guarding or rebound. 7.MSK: Normocephalic/Atraumatic, Extremities w/o deformity or ttp No cyanosis or clubbing, Normal movement of all extremities 8.Skin: Warm, Dry. No rashes or lesions. 9.Neuro: newscast producer II-XII grossly intact. Sensation grossly intact, no focal neurologic deficits. All 6 cardinal planes of vision are fully intact. No evidence of rotatory or vertical nystagmus. The patient demonstrated a normal [id number], good dexterity. There was no evidence of dysdiadochokinesia. Patient was able to ambulate without difficulty. There was no wide-based gait. Romberg testing was normal. Tazc-[id number] testing was normal. Sensation was intact bilaterally as well as muscle strength bilaterally for all extremities. Patient was able to verbalize butter cup with no slurring, or miss pronunciation. 10.Psych: (AAO) x3. Appropriate mood and affect Course Vital Signs Vital signs: Vital Signs Temperature 36.6 C 10/17/22 20:11 Pulse 82 10/17/22 20:11 Respiratory Rate 20 10/17/22 20:11 Blood Pressure 160/107 H 10/17/22 20:11 Pulse Oximetry 98 10/17/22 20:11 Temperature 36.6 C 10/17/22 20:11 Temperature Source Oral 10/17/22 20:11 Pulse 72 10/17/22 21:47 Respiratory Rate 16 10/17/22 21:47 Respiratory Effort Normal, Non-Labored 10/17/22 20:15 Blood Pressure 160/107 H 10/17/22 20:11 Blood Pressure Position Sitting 10/17/22 20:11 Pulse Oximetry 100 10/17/22 21:47 Oxygen Delivery Method Room Air 10/17/22 21:47 Oxygen Flow Rate 0 10/17/22 21:47 Lab/Test Results Lab/Test Results: Laboratory Tests Range/Units 10/17/22 10/17/22 20:15 20:15 WBC (4.4-10.8) 10^3/uL 15.46 H RBC (3.93-5.22) 10^6/uL 4.36 Hgb (11.2-15.7) g/dL 8.8 L Hct (36.0-46.0) % 29.5 L MCV (80-95) fL 68 L MCH (27.0-33.0) pg 20.2 L MCHC (32.0-36.0) % 29.8 L RDW (11.7-14.6) % 17.0 H Plt Count (130-400) 10^3/uL 310 MPV (8.0-11.0) fL 9.6 Immature Gran % 0.4 Neutrophils % 75.3 Lymphocytes % 16.4 Monocytes % 4.9 Eosinophils % 2.4 Basophils % 0.6 Nucleated RBC % (0.0-0.3) % 0.0 Absolute Neutrophils (1.2-6.7) 10^3/uL 11.64 H Absolute Lymphocytes (1.2-3.4) 10^3/uL 2.54 Absolute Monocytes (0.1-0.8) 10^3/uL 0.76 Absolute Eosinophils (0.0-0.7) 10^3/uL 0.37 Absolute Basophils (0.0-0.2) 10^3/uL 0.09 Sodium (136-145) mmol/L 134 L Potassium (3.5-5.1) mmol/L 3.8 Chloride (98-107) mmol/L 100 Carbon Dioxide (21.0-32.0) mmol/L 24.6 Anion Gap (3-11) mmol/L 9.4 BUN (7-18) mg/dL 12 Creatinine (0.55-1.02) mg/dL 0.8 Est GFR (CKD-EPI 2020) (mL/min/1.73m2) 77.75 Glucose (74-106) mg/dL 167 H Calcium (8.5-10.1) mg/dL 8.8 Total Bilirubin (0.2-1.0) mg/dL 0.4 AST (15-37) U/L 18 ALT (14-59) U/L 19 Alkaline Phosphatase (46-116) U/L 88 Total Protein (6.4-8.2) g/dL 7.3 Albumin (3.4-5.0) g/dL 3.7
--- NOTE | 2022-10-17 21:58 | NUR.NOTE ---
Nursing Note: Report given to Nayeli [place]
[2022-10-17 22:00] LABS: Diff Comment RBC Morph Reviewed; Microcytosis 2+; Polychromasia Present
[2022-10-17 22:01] LABS: Poikilocytes 1+
[2022-10-17 22:07] LABS: Bilirubin Negative (Negative); Blood Negative (Negative); Clarity Clear (Clear); Glucose Negative (Negative); Ketones Negative (Negative); Leukocyte Esterase Negative (Negative); Nitrite Negative (Negative); Urobilinogen 0.2 mg/dL (Up to 0.2)
[2022-10-17 23:21] VITALS: BP 132/90; PULSE 70; RESP 16; TEMP 36.6; O2SAT 98
[2022-10-17] MEDS: Meclizine 25 MG TAB 100 MG PO (23:23)
== END 2022-10-17 23:24 | disposition home or self-care (01) ==
PROVIDERS: Emergency Provider Student in an Organized Health Care Education/Training Program
DX: E86.0 Dehydration (principal); R42 Dizziness and giddiness; I10 Essential (primary) hypertension; J44.9 Chronic obstructive pulmonary disease, unspecified; E11.9 Type 2 diabetes mellitus without complications; Z79.51 Long term (current) use of inhaled steroids
CPT/HCPCS: 36415; 36416; 80053; 82962; 96360; 99284; 70450; 81003; 85025

== ENCOUNTER 2023-01-24 11:05 | Outpatient (REF) | payer MEDICARE, MEDICAID, SELFPAY ==
[2023-01-24 19:57] LABS: ALT 20 U/L (14-59); AST 20 U/L (15-37); Abs Immature Grans 0.03 10^3/uL (0.0-0.06); Absolute Eosinophil Count 0.32 10^3/uL (0.0-0.7); Absolute Lymphocyte Count 2.08 10^3/uL (1.2-3.4); Absolute Neutrophil Count 7.88 10^3/uL (1.2-6.7); Albumin 3.6 g/dL (3.4-5.0); Alkaline Phosphatase 98 U/L (46-116); Anion Gap 7.4 mmol/L (3-11); BUN 16 mg/dL (7-18); Basophils % 0.9; Bilirubin, Total 0.4 mg/dL (0.2-1.0); CO2 27.6 mmol/L (21.0-32.0); CREATININE 0.8 mg/dL (0.55-1.02); Chloride 107 mmol/L (98-107); Eosinophils % 2.9; Estimated GFR 77.75 (mL/min/1.73m2); Glucose 113 mg/dL (74-106); HCT 29.2 % (36.0-46.0); HGB 8.3 g/dL (11.2-15.7); Immature Grans % 0.3; Lymphocytes % 18.9; MCH 19.1 pg (27.0-33.0); MCHC 28.4 % (32.0-36.0); MCV 67 fL (80-95); MPV 9.7 fL (8.0-11.0); Monocytes % 5.4; Neutrophils % 71.6; Platelet Count 342 10^3/uL (130-400); Potassium 4.1 mmol/L (3.5-5.1); RBC 4.34 10^6/uL (3.93-5.22); RDW 18.8 % (11.7-14.6); RDW-SD 45.2 fL; Sodium 142 mmol/L (136-145); Total Protein 6.9 g/dL (6.4-8.2); WBC 11.01 10^3/uL (4.4-10.8)
[2023-01-24 20:10] LABS: Absolute Monocyte Count 0.59 10^3/uL (0.1-0.8)
[2023-01-24 20:18] LABS: Diff Comment RBC Morph Reviewed; Microcytosis 2+; Poikilocytes 1+
== END 2023-01-24 11:06 | disposition home or self-care (01) ==
LOC: NCHCN 11:05
PROVIDERS: PCP Nurse Practitioner Family; Visit Provider Nurse Practitioner Family
DX: E11.9 Type 2 diabetes mellitus without complications (principal); I10 Essential (primary) hypertension
CPT/HCPCS: 80053; 83036; 85025

== ENCOUNTER 2023-02-06 10:26 | Emergency (ER) | payer MEDICARE, MEDICAID, SELFPAY ==
[2023-02-06] VITALS (9 sets, daily range): BP systolic 137–152; BP diastolic 56–105; PULSE 80–116; RESP 15–21; TEMP 36.5; O2SAT 97–99
--- NOTE | 2023-02-06 10:40 | W.ED.GENAD ---
Discharge Plan Disposition Patient Disposition: Home Condition: Good Discharge Details Clinical Impression: Anemia Primary Care Provider: Sebastián Horan ED Provider: Marian Tapia Home Meds and New Rx's Prescriptions: Continued quetiapine 100 mg tablet 150 mg PO HS diclofenac sodium [Arthritis Pain (diclofenac)] 1 % gel 2 g topical QID PRN (Reason: pain) Qty: 100 1RF Rx Instructions: apply to single elbow, wrist or hand; for hand includes palm/fingers/back of hand Stiolto Respimat 2.5-2.5 mcg/actuation mist 2 puff inhalation DAILY Qty: 4 0RF (DME) 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 See Rx Instructions .ROUTE .MEDSUPPLY Qty: 1 0RF Rx Instructions: As directed docusate sodium [Colace] 100 mg capsule 100 mg PO BID Trelegy Ellipta 200-62.5-25 mcg blister with device 1 inh inhalation DAILY glyburide-metformin 5-500 mg tablet 1 tab PO BID fluticasone propion-salmeterol [Advair HFA] 115-21 mcg/actuation HFA aerosol inhaler 2 puff inhalation BID pantoprazole 40 MG tablet,delayed release (DR/EC) 40 mg PO DAILY simvastatin 40 MG tablet 40 mg PO HS calcium carbonate-vitamin D3 1 EACH tablet 1 ea PO BID magnesium oxide 400 mg magnesium Capsule 400 mg PO BID losartan 50 mg tablet 25 mg PO DAILY Patient Comments: TAKE ONE TABLET BY MOUTH EVERY DAY propranolol 40 mg tablet 40 mg PO BID Patient Comments: TAKE ONE TABLET BY MOUTH TWICE A DAY albuterol sulfate 90 mcg/actuation aerosol powdr breath activated 2 inh inhalation Q4H PRNQty: 1 0RF Discharge Instructions Instructions: Anemia (ED) Additional Instructions: Keep your appointment for your colonoscopy and or endoscopy tomorrow. Return to ED for fainting, inability to stand, any other concerns. Medical Decision Making The patient is standing up getting dressed at this time. She says she does not feel dizzy. I reassured her that her anemia is stable and when I checked her stool for blood is negative. Talked her about her BUN being normal as well but I am not sure how much she understood this. She does have a follow-up appointment with someone to arrange possible colonoscopy tomorrow. I do think she is safe to go home. Patient has a learning disability and may be mistaken about seeing maroon stool. I will not put her on a PPI at home at this time. Lab Data Lab results reviewed: Yes I reviewed the patient's lab results. Lab results narrative: BUN and creatinine normal at 1130. Her purple top had to be redrawn. The pt. is anemic but the same as she has been for some time; no change in H/H. ECG Data Attestation: I personally reviewed and interpreted this ECG (s) as follows: (Normal sinus rhythm at 90, first-degree AV block, no change versus 09/19/2021) HPI General Date/Time Provider Initiated Documentation: 02/06/23 10:38. HPI Narrative: This 72-year-old female patient presents with a chief complaint of GI bleeding is been ongoing for 3 weeks. The patient states that she has been passing watery melanotic stools, multiple times per day. She is supposed to see a woman tomorrow to discuss colonoscopy. She is not sure who this is. She comes into the emergency department this morning because she felt weak and is afraid. She has no chest pain, difficulty breathing, or belly pain. There is no epistaxis or hematuria. Patient weak this morning but has had no dizziness or lightheadedness. She denies fever or URI symptoms. She does not drink, smoke, or take NSAIDs. She does take Excedrin for pain. Related Data Home Medications Medication Instructions Recorded Confirmed pantoprazole 40 mg tablet,delayed 40 mg PO DAILY 02/20/13 02/06/23 release calcium carbonate 600 mg-vitamin 1 ea PO BID 10/10/17 02/06/23 D3 10 mcg (400 unit) tablet simvastatin 40 mg tablet 40 mg PO HS 10/10/17 02/06/23 magnesium oxide 400 mg PO BID 07/23/19 02/06/23 quetiapine 100 mg tablet 150 mg PO HS 10/18/20 02/06/23 inhalational spacing device #1 ea 06/17/21 02/06/23 (Aerochamber MV spacer) albuterol sulfate 90 mcg/actuation 2 inh inhalation Q4H PRN #1 ea 08/22/21 02/06/23 breath activated powder inhaler propranolol 40 mg tablet 40 mg PO BID 08/22/21 02/06/23 docusate sodium 100 mg capsule 100 mg PO BID 06/02/22 02/06/23 (Colace) fluticasone fur. 200 mcg-umeclid 1 inh inhalation DAILY 06/02/22 02/06/23 62.5 mcg-vilant 25 mcg inhalat.powder (Trelegy Ellipta) diclofenac sodium 1 % topical gel 2 g topical QID PRN pain #100 grams 12/12/22 02/06/23 (Arthritis Pain (diclofenac)) losartan 50 mg tablet 25 mg PO DAILY 12/12/22 02/06/23 tiotropium 2.5 mcg-olodaterol 2.5 2 puff inhalation DAILY #4 grams 12/12/22 02/06/23 mcg/actuation mist for inhalation (Stiolto Respimat) fluticasone propionate 115 2 puff inhalation BID 02/01/23 02/06/23 mcg-salmeterol 21 mcg/actuation HFA inhaler (Advair HFA) glyburide 5 mg-metformin 500 mg 1 tab PO BID 02/01/23 02/06/23 tablet Previous Rx's Medication Instructions Recorded inhalational spacing device #1 ea 06/17/21 (Aerochamber MV spacer) albuterol sulfate 90 mcg/actuation 2 inh inhalation Q4H PRN #1 ea 08/22/21 breath activated powder inhaler diclofenac sodium 1 % topical gel 2 g topical QID PRN pain #100 grams 12/12/22 (Arthritis Pain (diclofenac)) tiotropium 2.5 mcg-olodaterol 2.5 2 puff inhalation DAILY #4 grams 12/12/22 mcg/actuation mist for inhalation (Stiolto Respimat) Allergies Allergy/AdvReac Type Severity Reaction Status Date / Time thiopental sodium Allergy Skin Rash Unverified 02/06/23 10:31 [From Pentothal] General Stated Complaint: GI Bleed LYNNETTE: 3 Review of Systems Constitutional Constitutional: Denies chills, Denies fever(s), Denies headache(s) and Denies weakness Eyes Eyes: Denies diplopia and Reports other (no redness) ENT Ears, Nose, Mouth, and Throat: Denies otalgia, Denies headache(s), Denies nasal congestion, Denies nasal discharge, Denies neck pain and Denies sore throat Cardiovascular Cardiovascular: Denies chest pain, Denies palpitations and Denies dyspnea Respiratory Respiratory: Denies cough and Denies dyspnea Gastrointestinal Gastrointestinal: Denies abdominal pain, Reports diarrhea, Denies nausea, Denies vomiting and Reports other (Melanotic stool) Genitourinary Genitourinary: Denies dysuria Musculoskeletal Musculoskeletal: Denies myalgias, Denies muscle weakness, Denies neck pain, Denies numbness and Reports other (edema) Integumentary/Breasts Skin/Breast: Denies change in pigmentation and Denies rash Neurologic Neurologic: Denies headache(s), Denies numbness and Denies weakness Endocrine Endocrine: Denies palpitations PFSH All Active Problems (Updated 02/06/23 @ 12:40 by Marian Tapia MD) Rectal bleeding (Acute) Fatigue (Acute) Knee pain (Acute) Cough (Acute) Hypochromic microcytic anemia (Acute) COPD with acute exacerbation (Acute) Diarrhea (Acute) Blood in stool (Acute) Family history of colon cancer (Acute) Diverticulitis of large intestine (Acute) Colonoscopy planned (Acute) Abnormal CT scan (Acute) Illiterate (Chronic) able to manage independently Shortness of breath (Acute) COVID-19 (Acute) with persistent cough Transient leg weakness (Acute) Bronchospasm (Acute) Atypical chest pain (Acute) Palliative care status (Chronic) Financial difficulties (Chronic) Constipation (Chronic) takes lactulose to tx Encounter for screening colonoscopy (Acute) DNI (do not intubate) (Chronic) DNR (do not resuscitate) (Chronic) Palliative care patient (Chronic) Learning disability (Chronic) manages her own medications Diverticulosis (Acute) COPD (chronic obstructive pulmonary disease) (Chronic) Anemia (Chronic) Medical History Anxiety Asthma (04/02/13) Benign essential tremor Carpal tunnel syndrome Cerumen impaction (12/29/13) CHI (closed head injury) Chronic low back pain Constipation, chronic COPD exacerbation Cyst of ovary Laparoscopic bilateral salpingo-oophorectomy on 04-09-[address]Anne Medina. Path pending. Cyst of ovary (03/12/13) 02/26/13 L ovary [id number], R ovary [id number]. Not complex. Depression (04/02/13) Diabetes Diabetes mellitus Dry cough asking for humidifier Eczema Essential hypertension (04/02/13) Fall Family history of colon cancer in mother Family history of colorectal cancer GERD (gastroesophageal reflux disease) Goals of care, counseling/discussion Hair loss Hemorrhoid HTN (hypertension) Hypercholesterolemia Hyperlipidemia (04/02/13) Hypertension Hypomagnesemia Learning disability Leukocytosis Leukocytosis (leucocytosis) Lives alone with help available NO DPOA yet; ? state guardian? 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 Arthroplasty of knee L knee Dr Fuentes Cholecystectomy laparoscopic 03/2011 Extraction of cataract in [place] H/O arthroscopy of left knee (~01/2007) History of colonoscopy (~07/24/19) Oophrectomy, Both (04/09/13) laparotomy. aoc and kk. Family History Sister Heart disease Son Parent-child estrangement nec Under care of penitentiary service life sentence for murder Daughter Parent-child estrangement nec Substance abuse Social History Smoking/Tobacco Use Status: Former Tobacco Use tobacco type: cigarettes Tobacco: How many years used: 40 Smoking risk assessment performed?: Yes Alcohol Intake: former Drug use: Never Substance use type: does not use Caregiver/Support person: No Household members: none Housing: apartment Number of Children: 0 Communication Needs: Cannot Read Education Level: middle school Details: finished 6th grade only Do you need help understanding health information?: Always current occupation: always disabled; worked as [employer] for 5 years in her late teens, early 20s Pets and animals: No What is your relationship status?: How often do you talk on the phone with friends or family?: never How often do you get together with friends or relatives?: never Panel score (0-1 are the most socially isolated patients): 0 What type of physical activity do you participate in: walking and irregular exercise Duration: < 15 minutes/day Frequency: 1-2 times per week Special pankaj needs: No Agree to transfusion: Yes Seatbelt use: always Drive intox or ride w/intox furniture delivery driver: No Water heater temp set <120 deg: Yes Working smoke detector in home: Yes Firearms in home: No Do you feel safe at home: Yes Do you feel safe in your relationship?: Yes Additional Social history: she was very briefly in her teens was with Praneeth Cee for 15 years; he in 2016, she thinks, from colon cancer, bled out. Estranged from both her children, no family, no DPOA. Daughter with SA; her children taken from her. Son incarcerated for life. Exam Const General: no acute distress, well developed, well groomed and not in acute distress Nutritional Appearance: well nourished Orientation: alert and oriented x3 HENMT Head: normocephalic and atraumatic Ears: external ears normal Mouth: oropharynx normal and moist mucous membranes Throat: posterior oropharynx normal Eyes Conjunctivae: other (Conjunctiva pale) Neck Neck: full ROM and supple Chest Chest: normal inspection of the chest Resp Effort & Inspection: normal respiratory effort Auscultation: clear to auscultation bilaterally Cardio Rate: regular rate Rhythm: regular rhythm Heart Sounds: no murmurs and no rubs GI Inspection: normal to inspection Palpation: soft, nontender and other (non distended) Auscultation: normal bowel sounds Rectal Exam - female: visual inspection normal, heme negative stool (brown in color) and No hemorrhoids Skin General skin exam: no rashes or lesions noted and other (pale, warm, dry) Neuro General: patient alert, patient awake and patient oriented x3 Speech: speech normal Motor: other (MEEKS) Sensory Exam: no sensory deficits noted Extrem General: normal to inspection, full ROM and pedal edema present Psych Mental Status: mental status grossly normal Speech and Movement: speech and movement normal Affect: normal affect Course Patient states that she does want to be resuscitated or intubated as needed. Vital Signs Vital signs: Vital Signs Temperature 36.5 C 02/06/23 10:26 Pulse 116 H 02/06/23 10:26 Respiratory Rate 15 02/06/23 10:26 Blood Pressure 148/65 H 02/06/23 10:26 Pulse Oximetry 99 02/06/23 10:26 Temperature 36.5 C 02/06/23 10:26 Temperature Source Oral 02/06/23 10:26 Pulse 116 H 02/06/23 10:26 Respiratory Rate 15 02/06/23 10:26 Respiratory Effort Normal 02/06/23 10:30 Blood Pressure 148/65 H 02/06/23 10:26 Blood Pressure Position Sitting 02/06/23 10:26 Pulse Oximetry 99 02/06/23 10:26 Oxygen Delivery Method Room Air 02/06/23 10:26 Oxygen Flow Rate 0 02/06/23 10:26 Pain Level 0 02/06/23 10:26
--- NOTE | 2023-02-06 10:45 | RT.EKG_ITS ---
APPROVED REPORT Exam: Resting ECG Reason for Exam: bleeding Patient Location: E HR:91 bpm ECG Measurements Heart Rate 91 AXIS MA 230 P 49 QRSd 72 QRS -11 QT 355 T 76 QTc 437 Conclusion Sinus rhythm...normal P axis, V-rate 60- 99 Prolonged MA interval...MA >215, V-rate 91-120 No change vs 09/19/22
[2023-02-06] MEDS: Normal Saline 1,000 ML 1000 ML IV (11:02)
[2023-02-06] MEDS: Pantoprazole 40 MG VIAL 80 MG IVP (11:08)
[2023-02-06 11:18] LABS: ALT 17 U/L (14-59); AST 15 U/L (15-37); Albumin 3.7 g/dL (3.4-5.0); Alkaline Phosphatase 115 U/L (46-116); BUN 16 mg/dL (7-18); Bilirubin, Total 0.4 mg/dL (0.2-1.0); CREATININE 0.8 mg/dL (0.55-1.02); Calcium 9.1 mg/dL (8.5-10.1); Chloride 104 mmol/L (98-107); Estimated GFR 77.75 (mL/min/1.73m2); Glucose 199 mg/dL (74-106); Magnesium 1.6 mg/dL (1.8-2.4); Potassium 3.4 mmol/L (3.5-5.1); Sodium 140 mmol/L (136-145); Total Protein 7.2 g/dL (6.4-8.2)
[2023-02-06 11:21] LABS: Abs Immature Grans 0.06 10^3/uL (0.0-0.06); Absolute Basophil Count 0.08 10^3/uL (0.0-0.2); Absolute Eosinophil Count 0.25 10^3/uL (0.0-0.7); Absolute Lymphocyte Count 2.02 10^3/uL (1.2-3.4); Absolute Monocyte Count 0.56 10^3/uL (0.1-0.8); Absolute Neutrophil Count 6.67 10^3/uL (1.2-6.7); Basophils % 0.8; Eosinophils % 2.6; HCT 30.2 % (36.0-46.0); HGB 8.8 g/dL (11.2-15.7); Immature Grans % 0.6; MCH 18.9 pg (27.0-33.0); MCHC 29.1 % (32.0-36.0); MCV 65 fL (80-95); MPV 8.8 fL (8.0-11.0); Monocytes % 5.8; Neutrophils % 69.2; Platelet Count 245 10^3/uL (130-400); RBC 4.66 10^6/uL (3.93-5.22); RDW 18.8 % (11.7-14.6); RDW-SD 42.8 fL; WBC 9.64 10^3/uL (4.4-10.8)
[2023-02-06 11:46] LABS: Microcytosis 2+
== END 2023-02-06 12:58 | disposition home or self-care (01) ==
PROVIDERS: Emergency Provider Emergency Medicine; PCP Nurse Practitioner Family
DX: K62.5 Hemorrhage of anus and rectum (principal); R19.7 Diarrhea, unspecified; D64.9 Anemia, unspecified; J44.9 Chronic obstructive pulmonary disease, unspecified; E11.9 Type 2 diabetes mellitus without complications; I10 Essential (primary) hypertension; E78.5 Hyperlipidemia, unspecified; Z87.891 Personal history of nicotine dependence
CPT/HCPCS: 36415; 80053; 86850; 86900; 86901; 93005; 96360; 96361; 99283; 83735; 85025; 93010

== ENCOUNTER → 2023-02-07 08:56 | Outpatient (BNVA) | payer MEDICARE, MEDICAID, SELFPAY | PROVIDERS: PCP Nurse Practitioner Family; Referring Provider Nurse Practitioner Family; Visit Provider Surgery | DX: K62.5 Hemorrhage of anus and rectum (principal) | CPT/HCPCS: 99213 ==

== ENCOUNTER 2023-02-22 08:41 | Day surgery (SDC) | payer MEDICARE, MEDICAID, SELFPAY ==
--- NOTE | 2023-02-21 21:21 | W.PM.DSUDISC ---
Date of service: 02/22/23 Time of Service: 11:27 Discharge Plan Disposition Patient Disposition: Home Condition: Good Discharge Details Reason For Visit: Colonoscopy Attending Provider: Juanito Yanez Primary Care Provider: Sebastián Horan Home Meds and New Rx's Prescriptions: Continued quetiapine 100 mg tablet 150 mg PO HS diclofenac sodium [Arthritis Pain (diclofenac)] 1 % gel 2 g topical QID PRN (Reason: pain) Qty: 100 1RF Rx Instructions: apply to single elbow, wrist or hand; for hand includes palm/fingers/back of hand Stiolto Respimat 2.5-2.5 mcg/actuation mist 2 puff inhalation DAILY Qty: 4 0RF (DME) 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 See Rx Instructions .ROUTE .MEDSUPPLY Qty: 1 0RF Rx Instructions: As directed docusate sodium [Colace] 100 mg capsule 100 mg PO BID Trelegy Ellipta 200-62.5-25 mcg blister with device 1 inh inhalation DAILY glyburide-metformin 5-500 mg tablet 1 tab PO BID fluticasone propion-salmeterol [Advair HFA] 115-21 mcg/actuation HFA aerosol inhaler 2 puff inhalation BID pantoprazole 40 MG tablet,delayed release (DR/EC) 40 mg PO DAILY simvastatin 40 MG tablet 40 mg PO HS calcium carbonate-vitamin D3 1 EACH tablet 1 ea PO BID magnesium oxide 400 mg magnesium Capsule 400 mg PO BID losartan 50 mg tablet 25 mg PO DAILY Patient Comments: TAKE ONE TABLET BY MOUTH EVERY DAY propranolol 40 mg tablet 40 mg PO BID Patient Comments: TAKE ONE TABLET BY MOUTH TWICE A DAY albuterol sulfate 90 mcg/actuation aerosol powdr breath activated 2 inh inhalation Q4H PRNQty: 1 0RF Discontinued polyethylene glycol 3350 17 gram/dose powder 238 g PO ONCE Qty: 238 0RF Rx Instructions: take per colonoscopy instructions bisacodyl [Dulcolax (bisacodyl)] 5 mg tablet,delayed release (DR/EC) 5 mg PO ONCE Qty: 4 0RF Rx Instructions: take per colonoscopy instructions Discharge Instructions Instructions: Diverticulosis (GEN), Diverticulosis Diet (GEN) Additional Instructions: Isaura, I was able to complete your colonoscopy today without any difficulty. The prep was excellent. There is only one significant internal hemorrhoid, and based on its proximity to the anal verge, I did not think that banding was an appropriate treatment. Additionally, you have a fair amount of sigmoid diverticulosis. Based on your history, I suspect diverticular bleeding was most likely culprit. I have attached some general information here regarding diverticular disease. Hopefully, you will experience any more rectal bleeding. If you do have episodes, please there are treatment options at that point. 1. If tolerated, consume a soft, low fiber diet for 1-2 days. 2[address] Do not drive, drink alcohol, operate machinery, make critical decisions, or do activities that require coordination or balance for 24 hours. 3. Because air was put into your colon during the procedure, expelling air from your rectum (passing gas or farting) is normal. 4. You may not have a bowel movement for 1-3 days because of the colonoscopy prep. This is normal. 5. Go directly to the emergency room if you notice any of the following: Develop chills (warm to touch), or if you have a thermometer and your temperature is above 101 Difficulty breathing or difficultly swallowing Persistent vomiting Severe abdominal pain, other than gas cramps Severe chest pain Black, tarry stools Any bleeding ? exceeding one tablespoon 6. Call your physician if the site where your intravenous was started becomes red, swollen, painful, and warm to touch. 7. Your physician has reviewed your pre-procedure medications. Please continue to take those medications as previously ordered. You will be given specific information/education regarding any changes to your medications before leaving. Activity:: Activity as Tolerated Diet:: As Tolerated Discharge Orders Discharge Orders: Discharge Order (Routine); Ordered 02/21/23 Ordered By: Juanito Yanez DS: Diagnosis Discharge Diagnosis (1) Hematochezia: Status: Acute Asessment and Plan: Based on the colonoscopy today, the most likely source of the bleeding was diverticular. There was a grade 1 internal hemorrhoid that was not amenable to banding.
--- NOTE | 2023-02-21 21:24 | W.COLOREPORT ---
Date of service: 02/22/23 Time of Service: 11:29 Colonoscopy Report Date of procedure: 02/22/23 Pre-op diagnosis general: Hematochezia Post-op diagnosis procedure note: other (Grade 1 internal hemorrhoids, diverticulosis) Procedure: Colonoscopy Surgeon: Juanito Yanez Anesthesia Type: General:No Airway Estimated blood loss (mL): 0 Pathology: none sent Complications: None Disposition: same day Indications: Everette is a 72 year old woman with hematochezia of unclear etiology. Prep: Miralax/Dulcolax Procedure Start Time: 10:56 Procedure End Time: 11:10 Retraction Time: 5 Findings: Grade 1 internal hemorrhoids with diverticulosis Procedure Description: After the induction of monitored anesthetic care, and with the patient in left lateral decubitus position, I began by performing an external anorectal exam.? Perineum and skin were normal, as was the anal verge.? There were some external skin tags consistent with fibrosed external hemorrhoids..? Next, I performed a digital rectal exam.? I did not appreciate any abnormal findings.? Next, I advanced a colonoscope into the rectal vault.? I performed retroflexion.? There was a grade 1 internal hemorrhoid, but otherwise minimal internal hemorrhoid disease. I do not think that the internal hemorrhoid is amenable to banding, based on its proximity to the anal verge.? Using insufflation, I then advanced the colonoscope beyond the rectal folds and into the sigmoid colon before advancing towards the cecum.? There was a fair amount of sigmoid and left-sided diverticular disease. The diverticula are mostly small mouth, and the true colon lumen was easy to maintain. The quality of the prep was excellent.? The scope was noted to be in the cecum by identification of the ileocecal valve and appendiceal orifice.? I then began withdrawing the colonoscope using repeated irrigation as necessary for full evaluation of the colonic mucosa. ?Once the scope was withdrawn to the level of the rectum, great care was taken to examine portions of the rectal folds.? Finally, the scope was withdrawn and the patient was brought to the same-day surgery recovery unit as the anesthetic wore off. ?The findings and instructions were shared with the patient prior to discharge.
[2023-02-22 09:30] VITALS: BP 149/57; PULSE 88; RESP 18; TEMP 36.4; O2SAT 100
[2023-02-22] MEDS: Lactated Ringers 1,000 ML 80 ML IV (09:57)
--- NOTE | 2023-02-22 10:01 | ANES.PREOP_ITS ---
General Info Date of Service Date Performed: 02/22/23 Height: 5 ft Weight: 76.5 kg Body Mass Index (BMI): 32.9 Surgical Procedure: Operation Date: 02/22/23 10:55 Proposed Procedure Side Surgeon p Colonoscopy Juanito Yanez MD s Possible Hemorrhoid Banding Juanito Yanez MD Meds Allergies and Home Medications Allergies Allergy/AdvReac Type Severity Reaction Status Date / Time thiopental sodium Allergy Skin Rash Unverified 02/22/23 09:37 [From Pentothal] Home Medication Medication Instructions Recorded pantoprazole 40 mg tablet,delayed 40 mg PO DAILY 02/20/13 release calcium carbonate 600 mg-vitamin 1 ea PO BID 10/10/17 D3 10 mcg (400 unit) tablet simvastatin 40 mg tablet 40 mg PO HS 10/10/17 magnesium oxide 400 mg PO BID 07/23/19 quetiapine 100 mg tablet 150 mg PO HS 10/18/20 inhalational spacing device #1 ea 06/17/21 (Aerochamber MV spacer) albuterol sulfate 90 mcg/actuation 2 inh inhalation Q4H PRN #1 ea 08/22/21 breath activated powder inhaler propranolol 40 mg tablet 40 mg PO BID 08/22/21 docusate sodium 100 mg capsule 100 mg PO BID 06/02/22 (Colace) fluticasone fur. 200 mcg-umeclid 1 inh inhalation DAILY 06/02/22 62.5 mcg-vilant 25 mcg inhalat.powder (Trelegy Ellipta) diclofenac sodium 1 % topical gel 2 g topical QID PRN pain #100 grams 12/12/22 (Arthritis Pain (diclofenac)) losartan 50 mg tablet 25 mg PO DAILY 12/12/22 tiotropium 2.5 mcg-olodaterol 2.5 2 puff inhalation DAILY #4 grams 12/12/22 mcg/actuation mist for inhalation (Stiolto Respimat) fluticasone propionate 115 2 puff inhalation BID 02/01/23 mcg-salmeterol 21 mcg/actuation HFA inhaler (Advair HFA) glyburide 5 mg-metformin 500 mg 1 tab PO BID 02/01/23 tablet Current Visit Medications: Current Medications Generic Name Dose Route Start Last Admin Trade Name Freq PRN Reason Stop Dose Admin Hyoscyamine Sulfate 0.125 mg 02/21/23 21:29 Hyoscyamine 0.125 Mg Sl/Oral/Chew SL 03/23/23 21:28 DIRECTED PRN Ringer's Solution 1,000 mls @ 80 mls/hr 02/22/23 06:00 02/22/23 09:57 IV 03/23/23 23:59 80 mls/hr INFUSION YARELIS Administration IV Miscellaneous Supplies 1 each 02/22/23 06:00 Iv Access IV 03/23/23 23:59 DIRECTED YARELIS Ondansetron HCl 4 mg 02/21/23 21:29 Ondansetron 4 Mg/2 Ml Vial IVP 03/23/23 21:28 Q4H PRN PRN Nausea / Vomiting Sodium Chloride 0 ml 02/22/23 06:00 Normal Saline Flush 10 Ml Syr IV 03/23/23 23:59 PRN PRN Sodium Chloride 0 ml 02/22/23 06:00 Normal Saline 10 Ml Vial IJ 03/23/23 23:59 DIRECTED PRN Sterile Water 0 ml 02/22/23 06:00 Water,Injection,Sterile 10 Ml Vial IJ 03/23/23 23:59 DIRECTED PRN PFSH Active Problems Active Problems: Problem Status Onset Code Hematochezia K92.1 Diverticulitis of large intestine Anemia D64.9 COPD (chronic obstructive pulmonary disease) J44.9 Diverticulosis K57.90 Learning disability F81.9 Palliative care patient Z51.5 DNR (do not resuscitate) Z66 DNI (do not intubate) Z78.9 Encounter for screening colonoscopy Z12.11 Colonoscopy planned Constipation K59.00 Financial difficulties Z59.8 Palliative care status Z51.5 Atypical chest pain R07.89 Bronchospasm J98.01 Shortness of breath R06.02 COVID-19 U07.1 Transient leg weakness R29.[address] scan R93.89 Family history of colon cancer Z80.0 Blood in stool K92.1 Diarrhea R19.7 COPD with acute exacerbation J44.1 Hypochromic microcytic anemia D50.9 Cough R05.9 Knee pain M25.569 Fatigue R53.83 Rectal bleeding K62.5 Medical History Medical History Anxiety Asthma (04/02/13) Benign essential tremor Carpal tunnel syndrome Cerumen impaction (12/29/13) CHI (closed head injury) Chronic low back pain Constipation, chronic COPD exacerbation Cyst of ovary Laparoscopic bilateral salpingo-oophorectomy on 04-09-[address]Anne Medina. Path pending. Cyst of ovary (03/12/13) 02/26/13 L ovary [id number], R ovary [id number]. Not complex. Depression (04/02/13) Diabetes Diabetes mellitus Dry cough asking for humidifier Eczema Essential hypertension (04/02/13) [place] Family history of colon cancer in mother Family history of colorectal cancer GERD (gastroesophageal reflux disease) Goals of care, counseling/discussion Hair loss Hemorrhoid HTN (hypertension) Hypercholesterolemia Hyperlipidemia (04/02/13) Hypertension Hypomagnesemia Learning disability Leukocytosis Leukocytosis (leucocytosis) Lives alone with help available NO DPOA yet; ? state guardian? 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 Arthroplasty of knee L knee Dr Fuentes Cholecystectomy laparoscopic 03/2011 Extraction of cataract in [place] H/O arthroscopy of left knee (~01/2007) History of colonoscopy (~07/24/19) Oophrectomy, Both (04/09/13) laparotomy. aoc and kk. Tobacco Smoking/Tobacco Use Status: Never Alcohol Alcohol Intake: former Substance Use Substance use: Never Substance use type: does not use Vital Signs and Lab Results Vital Signs Most Recent Vital Signs in EMR: Most Recent Vital Signs Temp Pulse Resp BP Pulse Ox 36.4 C L 88 18 149/57 H 100 02/22/23 09:30 02/22/23 09:30 02/22/23 09:30 02/22/23 09:30 02/22/23 09:30 Lab Results Blood Type / Crossmatch: Patient ABO/Rh O Positive 02/06/23 Antibody Screen NEGATIVE 02/06/23 Complete Blood Count: White Blood Count 9.64 10^3/uL (4.4-10.8) 02/06/23 10:30 Red Blood Count 4.66 10^6/uL (3.93-5.22) 02/06/23 10:30 Hemoglobin 8.8 g/dL (11.2-15.7) L 02/06/23 10:30 Hematocrit 30.2 % (36.0-46.0) L 02/06/23 10:30 Platelet Count 245 10^3/uL (130-400) 02/06/23 10:30 Complete Metabolic Panel: Sodium 140 mmol/L (136-145) 02/06/23 10:30 Potassium 3.4 mmol/L (3.5-5.1) L 02/06/23 10:30 Chloride 104 mmol/L (98-107) 02/06/23 10:30 Carbon Dioxide 25.0 mmol/L (21.0-32.0) 02/06/23 10:30 BUN 16 mg/dL (7-18) 02/06/23 10:30 Creatinine 0.8 mg/dL (0.55-1.02) 02/06/23 10:30 Est GFR (CKD-EPI 2020) 77.75 (mL/min/1.73m2) 02/06/23 10:30 Magnesium 1.6 mg/dL (1.8-2.4) L 02/06/23 10:30 Calcium 9.1 mg/dL (8.5-10.1) 02/06/23 10:30 Albumin 3.7 g/dL (3.4-5.0) 02/06/23 10:30 Glucose 199 mg/dL (74-106) H 02/06/23 10:30 Hemoglobin A1c 7.0 % (<5.7) H 01/24/23 10:48 Liver Function Panel: Alanine Aminotransferase (ALT/SGPT) 17 U/L (14-59) 02/06/23 10: 30 Aspartate Amino Transf (AST/SGOT) 15 U/L (15-37) 02/06/23 10:30 Coagulation Panel: No Data to Display Cardiac Panel: No Data to Display Arterial Blood Gas: No Data to Display Venous Blood Gas: No Data to Display Pancreas Panel: No Data to Display Thyroid Panel: No Data to Display Infectious Disease: No Data to Display Blood Cultures: No Data to Display Toxicology Panel: No Data to Display Anesthesia Assessment and Plan Anesthesia History Personal History: No History of Anesthesia Complications Family History: No Family History of Anesthesia Complications Exercise Tolerance Exercise Tolerance: Metabolic Equivalents<4 Pertinent Negatives Pertinent Negatives: No Major Cardiovascular Symptoms or Complaints, No Major Pulmonary Symptoms or Complaints and No History of CVA/TIA Cardiac & Pulmonary Exam Cardiac Exam: Normal S1/S2 Heart Sounds Pulmonary Exam: Clear Bilateral Breath Sounds Implantable Cardiac Device Does patient have a Pacemaker or an ICD?: No Airway Exam Known Difficult Airway: No Mallampati Class: 3 Mouth Opening: Normal (> 3cm) Thyromental Distance: Less than 3 cm Neck Range of Motion: Full ROM Neck Circumference: Normal Teeth Condition: Removable Dentures/Plates Upper and Edentulous ASA Classification ASA Score: ASA 3 Emergency Case?: No NPO Status NPO Status: NPO Clears >2 hours, Solids >8 hours Anesthesia Plan Resuscitation Status: Full Code Anesthesia Technique: General Anesthesia Airway Planned: Natural Airway Monitors Used: Standard Monitors
[2023-02-22 10:03] VITALS: BMI 32.9
[2023-02-22 11:22] VITALS: BP 136/74; PULSE 81; RESP 18; TEMP 36.2; O2SAT 97
--- NOTE | 2023-02-22 11:43 | W.ANESPOSTOP ---
Postoperative Evaluation Date, Time and Location Date Performed: 02/22/23 Time Performed: 11:24 Patient Location: Day Surgery Unit Vital Signs Most Recent Imported Vital Signs: Most Recent Vital Signs Temp Pulse Resp BP Pulse Ox 36.2 C L 81 18 136/74 97 02/22/23 11:22 02/22/23 11:22 02/22/23 11:22 02/22/23 11:22 02/22/23 11:22 Pain Score Most Recent Pain Score: Most Recent Pain Score Pain Level 0 02/22/23 11:22 Assessment Mental Status: Awake (Alert & Oriented to Patient Baseline) Airway and Respiratory Function: Patent airway with normal (patient baseline) respiratory exam Cardiovascular Function: Hemodynamically Stable Hydration Status: Adequately Hydrated Nausea & Vomiting: No Nausea or Vomiting Pain: Pt. Denies Any Pain Peripheral Nerve Block: Patient did not receive a nerve block
[2023-02-22 11:46] VITALS: BP 148/63; PULSE 79; RESP 8; TEMP 36.3; O2SAT 100
== END 2023-02-22 12:28 | disposition home or self-care (01) ==
PROVIDERS: PCP Nurse Practitioner Family; Visit Provider Surgery
PROC: 0DJD8ZZ Inspection of Lower Intestinal Tract, Via Natural or Artificial Opening Endoscopic (ICD-10-PCS; CPT 45378; principal; 2023-02-22 10:45)
DX: K92.1 Melena (principal); K64.0 First degree hemorrhoids; K57.30 Diverticulosis of large intestine without perforation or abscess without bleeding
CPT/HCPCS: 45378

== ENCOUNTER 2023-04-30 13:31 | Outpatient (REF) | payer MEDICARE, MEDICAID, SELFPAY ==
[2023-04-30 15:14] LABS: HGB 10.4 g/dL (11.2-15.7); MCH 20.9 pg (27.0-33.0); MCHC 28.9 % (32.0-36.0); MCV 72 fL (80-95); MPV 9.8 fL (8.0-11.0); Platelet Count 267 10^3/uL (130-400); RBC 4.97 10^6/uL (3.93-5.22); RDW 20.5 % (11.7-14.6); RDW-SD 53.1 fL; WBC 9.74 10^3/uL (4.4-10.8)
== END 2023-04-30 13:32 | disposition home or self-care (01) ==
LOC: NCHCN 13:31
PROVIDERS: PCP Nurse Practitioner Family; Visit Provider Nurse Practitioner Family
DX: D64.9 Anemia, unspecified (principal)
CPT/HCPCS: 85027

== ENCOUNTER 2023-07-01 11:57 | Emergency (ER) | payer MEDICARE, MEDICAID, SELFPAY ==
[2023-07-01 11:56] VITALS: PULSE 82; RESP 18; TEMP 36.9; O2SAT 98
--- NOTE | 2023-07-01 12:00 | RT.EKG_ITS ---
APPROVED REPORT Exam: Resting ECG Reason for Exam: Patient Location: E HR:77 bpm ECG Measurements Heart Rate 77 AXIS [place] 180 P 0 QRSd 81 QRS 54 QT 438 T 42 QTc 498 Conclusion Sinus rhythm...normal P axis, V-rate 60- 99 ST elevation, consider inferior injury...ST >0.08mV, II III aVF motion artifact, no stemi
--- NOTE | 2023-07-01 12:00 | DI.RAD_ITS ---
Exam(s) XR CHEST 2V PA LATERAL EXAM: XR CHEST 2V PA LATERAL CLINICAL HISTORY: cough TECHNIQUE: 2D digital imaging was performed. COMPARISON: CR XR CHEST 2V PA LATERAL from 10/05/[address] CHEST WO from 11/03/2021 FINDINGS: HEART: Normal size. Aorta: Not dilated. PULMONARY VASCULATURE: Normal. LUNGS: Clear. PLEURAL SPACE: No pleural effusion or pneumothorax. BONE:Unremarkable for age. Soft tissues: Unremarkable. IMPRESSION: No acute abnormality. DATA REPOSITORY: RADIATION DOSE DELIVERED:
[2023-07-01 12:02] VITALS: BP 180/105; PULSE 77; RESP 14; TEMP 37.1; O2SAT 98
--- NOTE | 2023-07-01 12:31 | ED.GENADUL_ITS ---
HPI General Stated Complaint: RespSymp LYNNETTE: 3 Date/Time Provider Initiated Documentation: 07/01/23 12:05. HPI Narrative: 73 year-old female presents to ED today by POV/ambulating with a chief complaint of productive cough, irritation with coughing with onset 2-2.5 weeks ago. Quality described as generalized cough, no radiation to shortness of breath, overt chest pain, states irritation when coughing, denies nausea/vomiting, denies abdominal pain. Severity is described as mild to moderate. Palliating factors include nothing specific attempted. Provoking factors include nothing specific. Patient not anticoagulated. Related Data Home Medications Medication Instructions Recorded Confirmed pantoprazole 40 mg tablet,delayed 40 mg PO DAILY 02/20/13 06/12/23 release calcium carbonate 600 mg-vitamin 1 ea PO BID 10/10/17 06/12/23 D3 10 mcg (400 unit) tablet simvastatin 40 mg tablet 40 mg PO HS 10/10/17 06/12/23 magnesium oxide 400 mg PO BID 07/23/19 06/12/23 quetiapine 100 mg tablet 150 mg PO HS 10/18/20 06/12/23 inhalational spacing device #1 ea 06/17/21 06/12/23 (Aerochamber MV spacer) albuterol sulfate 90 mcg/actuation 2 inh inhalation Q4H PRN #1 ea 08/22/21 06/12/23 breath activated powder inhaler propranolol 40 mg tablet 40 mg PO BID 08/22/21 06/12/23 docusate sodium 100 mg capsule 100 mg PO BID 06/02/22 06/12/23 (Colace) fluticasone fur. 200 mcg-umeclid 1 inh inhalation DAILY 06/02/22 06/12/23 62.5 mcg-vilant 25 mcg inhalat.powder (Trelegy Ellipta) diclofenac sodium 1 % topical gel 2 g topical QID PRN pain #100 grams 12/12/22 06/12/23 (Arthritis Pain (diclofenac)) losartan 50 mg tablet 25 mg PO DAILY 12/12/22 06/12/23 tiotropium 2.5 mcg-olodaterol 2.5 2 puff inhalation DAILY #4 grams 12/12/22 06/12/23 mcg/actuation mist for inhalation (Stiolto Respimat) fluticasone propionate 115 2 puff inhalation BID 02/01/23 06/12/23 mcg-salmeterol 21 mcg/actuation HFA inhaler (Advair HFA) glyburide 5 mg-metformin 500 mg 1 tab PO BID 02/01/23 06/12/23 tablet azithromycin 250 mg tablet See Rx Instructions PO .COMPLEX 07/01/23 walking pneumonia #6 tabs Previous Rx's Medication Instructions Recorded inhalational spacing device #1 ea 06/17/21 (Aerochamber MV spacer) albuterol sulfate 90 mcg/actuation 2 inh inhalation Q4H PRN #1 ea 08/22/21 breath activated powder inhaler diclofenac sodium 1 % topical gel 2 g topical QID PRN pain #100 grams 12/12/22 (Arthritis Pain (diclofenac)) tiotropium 2.5 mcg-olodaterol 2.5 2 puff inhalation DAILY #4 grams 12/12/22 mcg/actuation mist for inhalation (Stiolto Respimat) azithromycin 250 mg tablet See Rx Instructions PO .COMPLEX 07/01/23 walking pneumonia #6 tabs Allergies Allergy/AdvReac Type Severity Reaction Status Date / Time thiopental sodium Allergy Skin Rash Unverified 02/22/23 09:37 [From Pentothal] Review of Systems All systems reviewed & are unremarkable except as noted in HPI and below PFSH All Active Problems (Updated 07/01/23 @ 14:00 by ADAMARIS Marino) Lower respiratory infection (Acute) Hematochezia (Acute) Diverticulitis of large intestine (Acute) Anemia (Chronic) COPD (chronic obstructive pulmonary disease) (Chronic) Diverticulosis (Acute) Learning disability (Chronic) manages her own medications Palliative care patient (Chronic) DNR (do not resuscitate) (Chronic) DNI (do not intubate) (Chronic) Encounter for screening colonoscopy (Acute) Colonoscopy planned (Acute) Constipation (Chronic) takes lactulose to tx Financial difficulties (Chronic) Palliative care status (Chronic) Atypical chest pain (Acute) Bronchospasm (Acute) Shortness of breath (Acute) COVID-19 (Acute) with persistent cough Transient leg weakness (Acute) Illiterate (Chronic) able to manage independently Abnormal CT scan (Acute) Family history of colon cancer (Acute) Blood in stool (Acute) Diarrhea (Acute) COPD with acute exacerbation (Acute) Hypochromic microcytic anemia (Acute) Cough (Acute) Knee pain (Acute) Fatigue (Acute) Rectal bleeding (Acute) Medical History Family history of colorectal cancer Family history of colon cancer in mother Constipation, chronic Diabetes Leukocytosis Hypertension Hemorrhoid Polypharmacy COPD exacerbation Wheezing Dry cough asking for humidifier CHI (closed head injury) Fall Right anterior knee pain Lives alone with help available NO DPOA yet; ? state guardian?-pt. 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 Not complex. Cerumen impaction (12/29/13) Asthma (04/02/13) Restless legs takes Premapaxil Cyst of ovary Laparoscopic bilateral salpingo-oophorectomy on 04-09-[address]Anne Medina. Path pending. Surgical History H/O arthroscopy of left knee (~01/2007) History of colonoscopy (~02/22/23) Oophrectomy, Both (04/09/13) laparotomy. aoc and kk. Abdominal hysterectomy (~1979) for heavy bleeding. Cholecystectomy laparoscopic 03/2011 Extraction of cataract in [place] Arthroplasty of knee L knee Dr Fuentes bladder suspension for incontinence Family History Sister Heart disease Son Parent-child estrangement nec Under care of shelter service life sentence for murder Daughter Parent-child estrangement nec Substance abuse Social History Smoking/Tobacco Use Status: Never Smoking risk assessment performed?: Yes Alcohol Intake: former Drug use: Never Substance use type: does not use Caregiver/Support person: No Household members: none Housing: apartment Number of Children: 0 Communication Needs: Cannot Read Education Level: middle school Details: finished 6th grade only Do you need help understanding health information?: Always current occupation: always disabled; worked as [employer] for 5 years in her late teens, early 20s Pets and animals: No Current gender identity: female What is your relationship status?: How often do you talk on the phone with friends or family?: never How often do you get together with friends or relatives?: never Panel score (0-1 are the most socially isolated patients): 0 What type of physical activity do you participate in: walking and irregular exercise Duration: < 15 minutes/day Frequency: 1-2 times per week Special pankaj needs: No Agree to transfusion: Yes Seatbelt use: always Drive intox or ride w/intox front loader residential driver: No Water heater temp set <120 deg: Yes Working smoke detector in home: Yes Firearms in home: No Do you feel safe at home: Yes Do you feel safe in your relationship?: Yes Additional Social history: Lives at [facility], per pt. Exam Narrative Exam Narrative: GENERAL APPEARANCE: Well-nourished, non-toxic, awake and alert, atraumatic, no acute distress. SKIN: Warm, pink, dry, intact, without rashes/lesions/ulcerations. HEAD: Normocephalic, atraumatic, normal hair distribution for gender/age. EYES: Pupils PERRLA, EOMs intact without nystagmus, normal conjunctiva, no exudates on lids/lashes. ENT: Nares patent, no circumoral cyanosis, no facial swelling NECK: Supple, trachea midline, painless cervical ROM. LUNGS/CHEST: Lungs CTA bilaterally- no rhonchi/rales/wheezes diffusely, non- labored respirations, normal A/P diameter, symmetrical expansion, no chest wall deformity HEART (CV/PV): Regular rate and rhythm without murmur, no peripheral edema, no JVD. ABDOMEN: Soft, non-distended, no guarding, no tenderness. MSK: Normal ROM, no swelling/deformity to bilateral UEs or LEs, moving all extremities without weakness, no cyanosis, spine midline without tenderness, normal curvature. NEURO: Mental Status AAOx4 - alert to person, place, time, events No facial droop, no forehead involvement. Motor: No focal weakness - strength 5/5 in bilateral UEs and LEs, proximal and distal, symmetric. Sensory: sensation intact to light touch globally. Gait normal: patient ambulated without ataxia into ED room. PSYCH: euthymic, cooperative, pleasant, appropriate speech Course 07/01/23 12:00 XR chest 2V PA & lateral [RAD] Stat 07/01/23 12:05 Normal Saline [Saline 1000ml Bag] 1,000 ml IV BOLUS 07/01/23 12:08 ED EKG Stat EKG Nursing/RT Intervention .STAT 07/01/23 12:21 COVID/FLU/RSV PCR [SERO] Stat 07/01/23 12:22 Comprehensive Metabolic Panel Stat Troponin [Cardiac Troponin I] Stat Complete Blood Count w/Diff [HEMO] Stat Vital Signs Vital signs: Vital Signs Temperature 36.9 C 07/01/23 11:56 Pulse 82 07/01/23 11:56 Respiratory Rate 18 07/01/23 11:56 Pulse Oximetry 98 07/01/23 11:56 Temperature 37.1 C 07/01/23 12:02 Pulse 77 07/01/23 12:02 Respiratory Rate 14 07/01/23 12:02 Respiratory Effort Non-Labored 07/01/23 12:02 Respiratory Depth Normal 07/01/23 12:02 Respiratory Pattern Normal 07/01/23 12:02 Blood Pressure 180/105 H 07/01/23 12:02 Blood Pressure Position Sitting 07/01/23 12:02 Pulse Oximetry 98 07/01/23 12:02 Oxygen Delivery Method Room Air 07/01/23 12:02 Oxygen Flow Rate 0 07/01/23 11:56 Lab/Test Results Lab/Test Results: Laboratory Tests Range/Units 07/01/23 12:22 Sodium Cancelled Potassium Cancelled Chloride Cancelled Carbon Dioxide Cancelled Anion Gap Cancelled BUN Cancelled Creatinine Cancelled Est GFR (CKD-EPI 2020) Cancelled Glucose Cancelled Calcium Cancelled Total Bilirubin Cancelled AST Cancelled ALT Cancelled Alkaline Phosphatase Cancelled Total Protein Cancelled Albumin Cancelled Medical Decision Making This dictation utilizes [id number] dictation software and may contain unedited grammatical errors. 73 y/o F presents to ED today with a chief complaint of generalized low-grade cough without significant shortness of breath and some irritation with coughing for the past 2-2 and half weeks. Patient denies high fevers tolerating p.o. intake and has no profound lethargy, denies abdominal symptoms. Patient is vaccinated for COVID. Patients' medical history: Diabetes, hypertension, COPD. Family and social history: Noncontributory, patient is not an active smoker, lives independently. Pertinent exam findings / vital signs include lungs CTA overtly, mild adventitious lung sounds without focal rhonchi, nontoxic vitals, afebrile. Differential / pathologies of concern include walking pneumonia, pneumonia, viral syndrome, bronchitis. Diagnostic studies of: -Chest x-ray, CBC, troponin, COVID/flu/RSV PCR, EKG. -CXR no focal pneumonia -CBC benign -Covid/Flu/RSV negative -Trop negative, do not suspect ACS -EKG shows NSR 77bpm, normal TX, no ST elevation- artifact, normal axis, good R wave progression Interventions of: -outpatient Rx for azithromycin with COPD history subacute PNA possible. ED Course/Assessment/Plan: 73-year-old female presents with a subacute cough for 2-2 and half weeks, history of COPD, COVID flu negative reasonable to treat with timeline with azithromycin for possible acute exacerbation of chronic bronchitis versus mycoplasma pneumoniae, counseled on therapeutic dosing Tylenol and ibuprofen, continue with at home inhaler use. Findings not consistent with hypoxic respiratory failure, toxic illness, sepsis with pneumonia, COVID flu or RSV. Disposition of Lower Respiratory Infection. Patient verbalized understanding of the plan and return to ED criteria and engaged in shared decision making. Medical Records Medical records reviewed: Yes I reviewed the patient's medical records. Imaging Data Radiologic Study: Imaging: X-Ray Radiologist's impression: Exam: XR Chest Exam date and time: 07/01/2023 12:47 PM Age: 73 years old Clinical indication: Other: Cough TECHNIQUE: Imaging protocol: Radiologic exam of the chest. Views: 2 views. COMPARISON: CT CHEST WO 11/03/2021 1:48 PM FINDINGS: Lungs: Unremarkable. No consolidation. Pleural spaces: Unremarkable. No pleural effusion. No pneumothorax. Heart/Mediastinum: Unremarkable. No cardiomegaly. Bones/joints: Unremarkable. IMPRESSION: No acute findings. Dictated and Authenticated by: Sue Guerra MD. Ordering:DEBORAH Hong MD Lab Data Lab results reviewed: Yes I reviewed the patient's lab results. Labs: Laboratory Tests Range/Units 07/01/23 07/01/23 07/01/23 12:21 12:22 12:22 WBC (4.4-10.8) 10^3/uL 8.60 RBC (3.93-5.22) 10^6/uL 5.11 Hgb (11.2-15.7) g/dL 12.0 Hct (36.0-46.0) % 38.8 MCV (80-95) fL 76 L MCH (27.0-33.0) pg 23.5 L MCHC (32.0-36.0) % 30.9 L RDW (11.7-14.6) % 18.0 H Plt Count (130-400) 10^3/uL 213 MPV (8.0-11.0) fL 8.7 Immature Gran % 0.5 Neutrophils % 81.0 Lymphocytes % 7.3 Monocytes % 7.2 Eosinophils % 3.1 Basophils % 0.9 Nucleated RBC % (0.0-0.3) % 0.0 Absolute Neutrophils (1.2-6.7) 10^3/uL 6.96 H Absolute Lymphocytes (1.2-3.4) 10^3/uL 0.63 L Absolute Monocytes (0.1-0.8) 10^3/uL 0.62 Absolute Eosinophils (0.0-0.7) 10^3/uL 0.27 Absolute Basophils (0.0-0.2) 10^3/uL 0.08 Sodium Cancelled 140 Potassium Cancelled Chloride Carbon Dioxide Anion Gap BUN Creatinine Est GFR (CKD-EPI 2020) Glucose Calcium Total Bilirubin AST ALT Alkaline Phosphatase Troponin I (<or=60) ng/L Total Protein Albumin COVID-19 Source Nasopharynx SARS-CoV-2 (PCR) (Negative) Negative Influenza Type A (PCR) (Negative) Negative Influenza Type B (PCR) (Negative) Negative RSV (PCR) (Negative) Negative Discharge Plan Disposition Patient Disposition: Home Condition: Stable Discharge Details Clinical Impression: Lower respiratory infection Primary Care Provider: Sebastián Horan ED Provider: Hal Weaver Home Meds and New Rx's Prescriptions: New azithromycin 250 mg tablet See Rx Instructions .ROUTE .COMPLEX Qty: 6 0RF Rx Instructions: For 250 mg dose pack: take 500 mg today (day 1), then 250 mg for 4 days (days 2-5) No Action quetiapine 100 mg tablet 150 mg PO HS diclofenac sodium [Arthritis Pain (diclofenac)] 1 % gel 2 g topical QID PRN (Reason: pain) Qty: 100 1RF Rx Instructions: apply to single elbow, wrist or hand; for hand includes palm/fingers/back of hand Stiolto Respimat 2.5-2.5 mcg/actuation mist 2 puff inhalation DAILY Qty: 4 0RF (DME) 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 See Rx Instructions .ROUTE .MEDSUPPLY Qty: 1 0RF Rx Instructions: As directed docusate sodium [Colace] 100 mg capsule 100 mg PO BID Trelegy Ellipta 200-62.5-25 mcg blister with device 1 inh inhalation DAILY glyburide-metformin 5-500 mg tablet 1 tab PO BID fluticasone propion-salmeterol [Advair HFA] 115-21 mcg/actuation HFA aerosol inhaler 2 puff inhalation BID pantoprazole 40 MG tablet,delayed release (DR/EC) 40 mg PO DAILY simvastatin 40 MG tablet 40 mg PO HS calcium carbonate-vitamin D3 1 EACH tablet 1 ea PO BID magnesium oxide 400 mg magnesium Capsule 400 mg PO BID losartan 50 mg tablet 25 mg PO DAILY Patient Comments: TAKE ONE TABLET BY MOUTH EVERY DAY propranolol 40 mg tablet 40 mg PO BID Patient Comments: TAKE ONE TABLET BY MOUTH TWICE A DAY albuterol sulfate 90 mcg/actuation aerosol powdr breath activated 2 inh inhalation Q4H PRNQty: 1 0RF Discharge Instructions Instructions: Azithromycin (By mouth), Community Acquired Pneumonia (ED) Additional Instructions: You were seen in the emergency department for your 2 to 2-1/2-week onset of productive cough, this is likely a subacute pneumonia. I am treating it with azithromycin sent to [facility] in [place]. Please take this as directed, please use therapeutic dosing of Tylenol (acetamenophen) & Advil (ibuprofen) in an alternating fashion as follows: Take 1000mg of Tylenol every 6 hours without missing doses- that is 4 times per day. [place] in between the Tylenol dosings, take 400-600mg of Advil also on a 6 hour schedule, that is also 4 times per day. The daily maximum dosing of Tylenol is 4000mg, and the daily maximum dosing of Advil is 2400mg. This is safe to do for weeks. Please note that some common cold medications & prescription pain medications may contain acetamenophen and you need to read OTC drug labels and factor that in to maximum daily dosings. Please return for any further respiratory distress, shortness of breath, high fever not responding to medications, intractable nausea or vomiting Referrals: Sebastián Horan NP [Primary Care Provider] - Discharge Data Discharge Date/Time-TO BE ENTERED AT DEPARTURE: 07/01/23 14:36
[2023-07-01 12:33] LABS: Abs Immature Grans 0.04 10^3/uL (0.0-0.06); Absolute Basophil Count 0.08 10^3/uL (0.0-0.2); Absolute Eosinophil Count 0.27 10^3/uL (0.0-0.7); Absolute Lymphocyte Count 0.63 10^3/uL (1.2-3.4); Absolute Monocyte Count 0.62 10^3/uL (0.1-0.8); Absolute Neutrophil Count 6.96 10^3/uL (1.2-6.7); Basophils % 0.9; Eosinophils % 3.1; HCT 38.8 % (36.0-46.0); Immature Grans % 0.5; Lymphocytes % 7.3; MCH 23.5 pg (27.0-33.0); MCHC 30.9 % (32.0-36.0); MCV 76 fL (80-95); MPV 8.7 fL (8.0-11.0); Monocytes % 7.2; Platelet Count 213 10^3/uL (130-400); RBC 5.11 10^6/uL (3.93-5.22); RDW-SD 49.7 fL
[2023-07-01] MEDS: Normal Saline 1,000 ML 1000 ML IV (12:33)
[2023-07-01 12:49] LABS: ALT 31 U/L (14-59); AST 24 U/L (15-37); Albumin 3.8 g/dL (3.4-5.0); Alkaline Phosphatase 101 U/L (46-116); Anion Gap 8.5 mmol/L (3-11); BUN 12 mg/dL (7-18); Bilirubin, Total 0.5 mg/dL (0.2-1.0); CO2 28.5 mmol/L (21.0-32.0); CREATININE 0.7 mg/dL (0.55-1.02); Calcium 9.2 mg/dL (8.5-10.1); Chloride 103 mmol/L (98-107); Glucose 94 mg/dL (74-106); Potassium 3.8 mmol/L (3.5-5.1); Sodium 140 mmol/L (136-145); Total Protein 7.8 g/dL (6.4-8.2); Troponin I < 50 ng/L (<or=60)
--- NOTE | 2023-07-01 13:07 | DI.VRAD_ITS ---
PROCEDURE INFORMATION: Exam: XR Chest Exam date and time: 07/01/2023 12:47 PM Age: 73 years old Clinical indication: Other: Cough TECHNIQUE: Imaging protocol: Radiologic exam of the chest. Views: 2 views. COMPARISON: CT CHEST WO 11/03/2021 1:48 PM FINDINGS: Lungs: Unremarkable. No consolidation. Pleural spaces: Unremarkable. No pleural effusion. No pneumothorax. Heart/Mediastinum: Unremarkable. No cardiomegaly. Bones/joints: Unremarkable. IMPRESSION: No acute findings. Dictated and Authenticated by: Sue Guerra MD. Ordering:DEBORAH Hong MD
[2023-07-01 13:44] LABS: COVID-19 PCR Negative (Negative); Influenza A PCR Negative (Negative); Influenza B PCR Negative (Negative); RSV PCR Negative (Negative); Source Nasopharynx
[2023-07-01 14:49] VITALS: BP 158/68; PULSE 72; RESP 18; O2SAT 98
== END 2023-07-01 14:36 | disposition home or self-care (01) ==
PROVIDERS: Emergency Provider Physician Assistant; PCP Nurse Practitioner Family
DX: J22 Unspecified acute lower respiratory infection (principal)
CPT/HCPCS: 80053; 87637; 93005; 96360; 96361; 99284; 71046; 84484; 85025; 93010

== ENCOUNTER 2023-07-10 09:42 | Emergency (ER) | payer MEDICARE, MEDICAID, SELFPAY ==
[2023-07-10 09:40] VITALS: BP 149/65; PULSE 75; RESP 17; TEMP 36.3; O2SAT 96
--- NOTE | 2023-07-10 09:45 | DI.CT_ITS ---
Exam(s) CT ABDOMEN PELVIS W EXAM: CT ABDOMEN PELVIS W CLINICAL HISTORY: abdominal pain, diarrhea, recent abx. TECHNIQUE: Imaging Protocol: Axial computed tomography images with coronal and sagittal reformatted images were created and reviewed CONTRAST MATERIAL: Intravenous: Omnipaque-350 100cc Oral: None COMPARISON: CT CT ABDOMEN PELVIS W from 08/27/2021 FINDINGS: VISUALIZED LUNG BASES: There is mild infiltrate in the left lung base-lateral basal segment left lowe r lobe. No pleural effusion. ABDOMEN: There is no ascites. LIVER: There are no focal hepatic lesions evident. No dilated intrahepatic ducts. GALLBLADDER/BILIARY: The gallbladder is again noted to be surgically absent. CBD is not dilated. PANCREAS: No evidence of pancreatic mass nor dilatation of the pancreatic duct. SPLEEN: Spleen is not enlarged. No obvious intrasplenic lesions. Splenic and portal veins are paten t. ADRENALS: There are no new significant adrenal masses. KIDNEYS:Small amount of perinephric fluid again seen bilaterally. No solid renal masses. Small cyst s again noted. Largest is in the upper pole left kidney measuring 2 by 1 cm and containing a small c alcification in its wall-Bosniak type 2. Smaller exophytic cyst is noted off the lateral cortex of t he left kidney measuring 6-7 mm. No hydronephrosis. ABDOMINAL AORTA: Calcified but not enlarged. Common iliac arteries are also not enlarged. LYMPH NODES:There is no retroperitoneal nor paraaortic adenopathy. ABDOMINAL WALL: No evidence of significant anterior abdominal wall nor inguinal hernia. GI: There is no evidence of bowel obstruction, free air, nor abscess. PELVIS: GI: No evidence of appendicitis.The colon is filled with air. There is sigmoid diverticulosis. Ther e is some mild streaking around 1 of the diverticuli seen in the superior wall of the sigmoid which m ay indicate mild diverticulitis. No free air. No free fluid. No abscess. LYMPH NODES: There is no intrapelvic nor inguinal adenopathy. REPRODUCTIVE: Uterus is surgically absent. There are no abnormal adnexal masses nor free fluid in th e pelvis. URINARY BLADDER: No calculi nor obvious masses evident OSSEOUS: No fractures and no significant osseous lesions. IMPRESSION: 1. Compared to the prior CT scan of August 2021 there is again noted evidence of previous cholecyst ectomy and hysterectomy. No evidence of bowel obstruction. 2. There diverticuli in the sigmoid. There is some mild streaking around 1 of these diverticuli whic h may indicate mild diverticulitis. No free air. No free fluid. No abscess. Discussed by phone with ER provider. RADIATION DOSE DELIVERED: 1,258.71mGy.cm Total DLP DATA REPOSITORY: All CT scans at this facility are submitted to the National Radiology Data Registry (NRDR) Dose Index Registry (DIR) with the [employer] (ACR). RADIATION OPTIMIZATION: All CT scans at this facility use at least one of these dose optimization te chniques: automated exposure control; mA and/or kV adjustment per patient size (includes targeted exa ms where dose is matched to clinical indication); or iterative reconstruction.
--- NOTE | 2023-07-10 09:45 | RT.EKG_ITS ---
APPROVED REPORT Exam: Resting ECG Reason for Exam: nausea Patient Location: E HR:68 bpm ECG Measurements Heart Rate 68 AXIS ID 225 P 48 QRSd 76 QRS -15 QT 419 T 77 QTc 446 Conclusion Sinus rhythm...normal P axis, V-rate 60- 99 Prolonged ID interval...ID >220, V-rate 50- 90
[2023-07-10 10:25] LABS: Abs Immature Grans 0.04 10^3/uL (0.0-0.06); Absolute Basophil Count 0.04 10^3/uL (0.0-0.2); Absolute Eosinophil Count 0.28 10^3/uL (0.0-0.7); Absolute Monocyte Count 0.57 10^3/uL (0.1-0.8); Absolute Neutrophil Count 8.56 10^3/uL (1.2-6.7); Basophils % 0.4; Eosinophils % 2.5; HCT 35.2 % (36.0-46.0); HGB 10.9 g/dL (11.2-15.7); Immature Grans % 0.4; Lymphocytes % 14.4; MCH 23.4 pg (27.0-33.0); MCV 76 fL (80-95); MPV 8.9 fL (8.0-11.0); Monocytes % 5.1; Neutrophils % 77.2; Platelet Count 232 10^3/uL (130-400); RBC 4.66 10^6/uL (3.93-5.22); RDW 17.6 % (11.7-14.6); RDW-SD 48.3 fL; WBC 11.09 10^3/uL (4.4-10.8)
[2023-07-10] MEDS: ACETAMINOPHEN 1,000 MG/100 ML BTL 400 MG IVPB (10:38)
[2023-07-10] MEDS: Normal Saline 500 ML IV (10:39)
[2023-07-10] MEDS: Ondansetron 4 MG/2 ML VIAL IVP (10:39)
[2023-07-10 10:42] LABS: ALT 30 U/L (14-59); AST 23 U/L (15-37); Albumin 3.5 g/dL (3.4-5.0); Alkaline Phosphatase 85 U/L (46-116); Anion Gap 7.3 mmol/L (3-11); BUN 14 mg/dL (7-18); Bilirubin, Total 0.4 mg/dL (0.2-1.0); CO2 26.7 mmol/L (21.0-32.0); CREATININE 0.8 mg/dL (0.55-1.02); Calcium 9.4 mg/dL (8.5-10.1); Chloride 106 mmol/L (98-107); Estimated GFR 77.27 (mL/min/1.73m2); Glucose 165 mg/dL (74-106); Lipase 15 U/L (16-77); Magnesium 1.7 mg/dL (1.8-2.4); Potassium 3.8 mmol/L (3.5-5.1); Sodium 140 mmol/L (136-145)
[2023-07-10] MEDS: Omnipaque 350 MG/ML 500 ML BTL-Imaging package IJ (11:12)
[2023-07-10] MEDS: Normal Saline - Diluent 50 ML VIAL IJ (11:14)
--- NOTE | 2023-07-10 11:14 | DI.RAD_ITS ---
Exam(s) XR CHEST 2V PA LATERAL EXAM: XR CHEST 2V PA LATERAL CLINICAL HISTORY: cough, persistent. TECHNIQUE: 2D digital imaging was performed. COMPARISON: CR,XR XR CHEST 2V PA LATERAL from 07/01/2023 FINDINGS: 2 views: Heart size is normal. The mediastinum is not widened. No infiltrates nor pleural effusions. No pulmonary edema. IMPRESSION: No acute pulmonary findings. Incidentally noted is air throughout the visualized colon. There is no free air subjacent to the hem idiaphragms. DATA REPOSITORY: RADIATION DOSE DELIVERED:
--- NOTE | 2023-07-10 11:21 | W.ED.GENAD ---
HPI General Stated Complaint: Nausea/Vomit/Diar LYNNETTE: 3 Date/Time Provider Initiated Documentation: 07/10/23 09:46. HPI Narrative: This 73-year-old female presents with report of nausea, 1 episode of vomiting, 2 episodes of watery brown stool. Completed course of azithromycin last week for suspected bronchitis per patient. Says she has had some cramping in her abdomen. Denies any fever or chills. Denies any weakness. Denies any blood in stool or vomitus. Denies chest pain or shortness of breath. States that her cough is resolving per patient. Related Data Home Medications Medication Instructions Recorded Confirmed pantoprazole 40 mg tablet,delayed 40 mg PO DAILY 02/20/13 07/10/23 release calcium carbonate 600 mg-vitamin 1 ea PO BID 10/10/17 07/10/23 D3 10 mcg (400 unit) tablet simvastatin 40 mg tablet 40 mg PO HS 10/10/17 07/10/23 magnesium oxide 400 mg PO BID 07/23/19 07/10/23 quetiapine 100 mg tablet 150 mg PO HS 10/18/20 07/10/23 inhalational spacing device #1 ea 06/17/21 07/10/23 (Aerochamber MV spacer) albuterol sulfate 90 mcg/actuation 2 inh inhalation Q4H PRN #1 ea 08/22/21 07/10/23 breath activated powder inhaler propranolol 40 mg tablet 40 mg PO BID 08/22/21 07/10/23 losartan 50 mg tablet 25 mg PO DAILY 12/12/22 07/10/23 glyburide 5 mg-metformin 500 mg 1 tab PO BID 02/01/23 07/10/23 tablet Saccharomyces boulardii 250 mg 250 mg PO BID #20 caps 07/10/23 capsule (Florastor) budesonide-formoterol HFA 160 1 puff inhalation BID 07/10/23 07/10/23 mcg-4.5 mcg/actuation aerosol inhaler (Symbicort) cetirizine 10 mg tablet (24Hour 10 mg PO DAILY PRN 07/10/23 07/10/23 Allergy) ferrous gluconate 324 mg (37.5 mg 324 mg PO DAILY 07/10/23 07/10/23 iron) tablet moxifloxacin 400 mg tablet 400 mg PO DAILY 10 days #10 tabs 07/10/23 prochlorperazine maleate 5 mg 5 mg PO TID PRN #6 tabs 07/10/23 tablet (Compazine) tiotropium bromide 1.25 2 puff inhalation DAILY 07/10/23 07/10/23 mcg/actuation mist for inhalation (Spiriva Respimat) Previous Rx's Medication Instructions Recorded inhalational spacing device #1 ea 06/17/21 (Aerochamber MV spacer) albuterol sulfate 90 mcg/actuation 2 inh inhalation Q4H PRN #1 ea 08/22/21 breath activated powder inhaler Saccharomyces boulardii 250 mg 250 mg PO BID #20 caps 07/10/23 capsule (Florastor) moxifloxacin 400 mg tablet 400 mg PO DAILY 10 days #10 tabs 07/10/23 prochlorperazine maleate 5 mg 5 mg PO TID PRN #6 tabs 07/10/23 tablet (Compazine) Allergies Allergy/AdvReac Type Severity Reaction Status Date / Time thiopental sodium Allergy Skin Rash Unverified 07/10/23 11:29 [From Benitezothal] [facility] All Active Problems (Updated 07/10/23 @ 13:26 by ADAMARIS Bhatti) Pneumonia (Acute) Diverticulitis (Chronic) Lower respiratory infection (Acute) Hematochezia (Acute) Diverticulitis of large intestine (Acute) Anemia (Chronic) COPD (chronic obstructive pulmonary disease) (Chronic) Diverticulosis (Acute) Learning disability (Chronic) manages her own medications Palliative care patient (Chronic) DNR (do not resuscitate) (Chronic) DNI (do not intubate) (Chronic) Encounter for screening colonoscopy (Acute) Colonoscopy planned (Acute) Constipation (Chronic) takes lactulose to tx Financial difficulties (Chronic) Palliative care status (Chronic) Atypical chest pain (Acute) Bronchospasm (Acute) Shortness of breath (Acute) COVID-19 (Acute) with persistent cough Transient leg weakness (Acute) Illiterate (Chronic) able to manage independently Abnormal CT scan (Acute) Family history of colon cancer (Acute) Blood in stool (Acute) Diarrhea (Acute) COPD with acute exacerbation (Acute) Hypochromic microcytic anemia (Acute) Cough (Acute) Knee pain (Acute) Fatigue (Acute) Rectal bleeding (Acute) Medical History Family history of colorectal cancer Family history of colon cancer in mother Constipation, chronic Diabetes Leukocytosis Hypertension Hemorrhoid Polypharmacy COPD exacerbation Wheezing Dry cough asking for humidifier CHI (closed head injury) Fall Right anterior knee pain Lives alone with help available NO DPOA yet; ? state guardian?-pt. 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 Not complex. Cerumen impaction (12/29/13) Asthma (04/02/13) Restless legs takes Premapaxil Cyst of ovary Laparoscopic bilateral salpingo-oophorectomy on 04-09-[address]Anne Medina. Path pending. Surgical History H/O arthroscopy of left knee (~01/2007) History of colonoscopy (~02/22/23) Oophrectomy, Both (04/09/13) laparotomy. aoc and kk. Abdominal hysterectomy (~1979) for heavy bleeding. Cholecystectomy laparoscopic 03/2011 Extraction of cataract in [place] Arthroplasty of knee L knee Dr Fuentes bladder suspension for incontinence Family History Sister Heart disease Son Parent-child estrangement nec Under care of usp service life sentence for murder Daughter Parent-child estrangement nec Substance abuse Social History Smoking/Tobacco Use Status: Never Smoking risk assessment performed?: Yes Alcohol Intake: former Drug use: Never Substance use type: does not use Caregiver/Support person: No Household members: none Housing: apartment Number of Children: 0 Communication Needs: Cannot Read Education Level: middle school Details: finished 6th grade only Do you need help understanding health information?: Always current occupation: always disabled; worked as [employer] for 5 years in her late teens, early 20s Pets and animals: No Current gender identity: female What is your relationship status?: How often do you talk on the phone with friends or family?: never How often do you get together with friends or relatives?: never Panel score (0-1 are the most socially isolated patients): 0 What type of physical activity do you participate in: walking and irregular exercise Duration: < 15 minutes/day Frequency: 1-2 times per week Special pankaj needs: No Agree to transfusion: Yes Seatbelt use: always Drive intox or ride w/intox experienced truck driver: No Water heater temp set <120 deg: Yes Working smoke detector in home: Yes Firearms in home: No Do you feel safe at home: Yes Do you feel safe in your relationship?: Yes Additional Social history: Lives at [facility], per pt. Course Vital Signs Vital signs: Vital Signs Temperature 36.3 C L 07/10/23 09:40 Pulse 75 07/10/23 09:40 Respiratory Rate 17 07/10/23 09:40 Blood Pressure 149/65 H 07/10/23 09:40 Pulse Oximetry 96 07/10/23 09:40 Temperature 36.3 C L 07/10/23 09:40 Pulse 75 07/10/23 09:40 Respiratory Rate 17 07/10/23 09:40 Respiratory Effort Normal, Non-Labored 07/10/23 10:41 Blood Pressure 149/65 H 07/10/23 09:40 Blood Pressure Position Supine 07/10/23 09:40 Pulse Oximetry 96 07/10/23 09:40 Oxygen Delivery Method Room Air 07/10/23 09:40 Oxygen Flow Rate 0 07/10/23 09:40 Pain Level 7 07/10/23 10:41 Comment lower abd cramping 07/10/23 10:41 Lab/Test Results Lab/Test Results: Laboratory Tests Range/Units 07/10/23 10:17 WBC (4.4-10.8) 10^3/uL 11.09 H RBC (3.93-5.22) 10^6/uL 4.66 Hgb (11.2-15.7) g/dL 10.9 L Hct (36.0-46.0) % 35.2 L MCV (80-95) fL 76 L MCH (27.0-33.0) pg 23.4 L MCHC (32.0-36.0) % 31.0 L RDW (11.7-14.6) % 17.6 H Plt Count (130-400) 10^3/uL 232 MPV (8.0-11.0) fL 8.9 Immature Gran % 0.4 Neutrophils % 77.2 Lymphocytes % 14.4 Monocytes % 5.1 Eosinophils % 2.5 Basophils % 0.4 Nucleated RBC % (0.0-0.3) % 0.0 Absolute Neutrophils (1.2-6.7) 10^3/uL 8.56 H Absolute Lymphocytes (1.2-3.4) 10^3/uL 1.60 Absolute Monocytes (0.1-0.8) 10^3/uL 0.57 Absolute Eosinophils (0.0-0.7) 10^3/uL 0.28 Absolute Basophils (0.0-0.2) 10^3/uL 0.04 Sodium (136-145) mmol/L 140 Potassium (3.5-5.1) mmol/L 3.8 Chloride (98-107) mmol/L 106 Carbon Dioxide (21.0-32.0) mmol/L 26.7 Anion Gap (3-11) mmol/L 7.3 BUN (7-18) mg/dL 14 Creatinine (0.55-1.02) mg/dL 0.8 Est GFR (CKD-EPI 2020) (mL/min/1.73m2) 77.27 Glucose (74-106) mg/dL 165 H Calcium (8.5-10.1) mg/dL 9.4 Magnesium (1.8-2.4) mg/dL 1.7 L Total Bilirubin (0.2-1.0) mg/dL 0.4 AST (15-37) U/L 23 ALT (14-59) U/L 30 Alkaline Phosphatase (46-116) U/L 85 Total Protein (6.4-8.2) g/dL 7.0 Albumin (3.4-5.0) g/dL 3.5 Lipase (16-77) U/L 15 L Medical Decision Making 73-year-old female, no acute distress, abdominal tenderness, CT was ordered for further evaluation and chest x-ray, concern for pneumonia left lower lobe infiltrate per radiology interpretation and discussion of my review CT with evidence of diverticulitis, will place patient on Florastor, Avelox given pneumonia and diverticulitis, has not had any episodes of diarrhea in the emergency department today, low suspicion for C. difficile Will need close outpatient reassessment in 48 hours Ambulatory with steady gait Urinalysis without evidence of infection Stable anemia for patient when compared to prior Able to tolerate p.o. Antiemetics for home Return precautions reviewed and patient expressed understanding Quality:SDOH Health Related Social Needs: Health related social needs transpo insecurity Health related social needs details pt with developmental delay, lives alone, unable to comprehend difficult medical concepts, limited reading. Discharge Plan Disposition Patient Disposition: Home Discharge Details Clinical Impression: Diverticulitis, Pneumonia Primary Care Provider: Sue Lopez ED Provider: Lynn Milian Home Meds and New Rx's Prescriptions: New prochlorperazine maleate [Compazine] 5 mg tablet 5 mg PO TID PRNQty: 6 0RF Rx Instructions: prn nausea and vomiting Saccharomyces boulardii [Florastor] 250 mg capsule 250 mg PO BID Qty: 20 0RF moxifloxacin 400 mg tablet 400 mg PO DAILY 10 Days Qty: 10 0RF Continued quetiapine 100 mg tablet 150 mg PO HS (DME) 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 See Rx Instructions .ROUTE .MEDSUPPLY Qty: 1 0RF Rx Instructions: As directed glyburide-metformin 5-500 mg tablet 1 tab PO BID pantoprazole 40 MG tablet,delayed release (DR/EC) 40 mg PO DAILY budesonide-formoterol [Symbicort] 160-4.5 mcg/actuation HFA aerosol inhaler 1 puff INHALATION BID Patient Comments: INHALE 1 PUFF BY MOUTH TWO TIMES A DAY Spiriva Respimat 1.25 mcg/actuation mist 2 puff INHALATION DAILY Patient Comments: INHALE TWO PUFFS BY MOUTH EVERY DAY cetirizine [24Hour Allergy] 10 mg tablet 10 mg PO DAILY PRN ferrous gluconate 324 mg (37.5 mg iron) tablet 324 mg PO DAILY Patient Comments: TAKE ONE TABLET BY MOUTH EVERY DAY simvastatin 40 MG tablet 40 mg PO HS calcium carbonate-vitamin D3 1 EACH tablet 1 ea PO BID magnesium oxide 400 mg magnesium Capsule 400 mg PO BID losartan 50 mg tablet 25 mg PO DAILY Patient Comments: TAKE ONE TABLET BY MOUTH EVERY DAY propranolol 40 mg tablet 40 mg PO BID Patient Comments: TAKE ONE TABLET BY MOUTH TWICE A DAY albuterol sulfate 90 mcg/actuation aerosol powdr breath activated 2 inh inhalation Q4H PRNQty: 1 0RF Discharge Instructions Instructions: Diverticulitis (ED), Pneumonia (ED) Additional Instructions: Take antibiotic as prescribed starting tomorrow, you received a dose in the emergency department today Take Compazine as needed for nausea and vomiting Take the Florastor to provide a stool infection Increase fluid hydration Please recheck by your primary care physician in 48 hours for reassessment and return earlier should you have new or worsening complaints Take Tylenol as needed for discomfort Referrals: Sue Lopez [Primary Care Provider] - 2 days
[2023-07-10 13:19] LABS: Bilirubin Negative (Negative); Blood Negative (Negative); Clarity Clear (Clear); Glucose Negative (Negative); Ketones Negative (Negative); Leukocyte Esterase Negative (Negative); Nitrite Negative (Negative); Specific Gravity <= 1.005 (1.005-1.025); Urobilinogen 0.2 mg/dL (Up to 0.2); pH 5.5 (5-8)
[2023-07-10 13:33] VITALS: BP 155/97; PULSE 98; TEMP 36.6; O2SAT 99
--- NOTE | 2023-07-12 16:09 | W.ED.FU ---
Date of service: 07/12/23 Time of Service: 16:09 Follow Up Plan: Informed by community service technician that moxifloxacin is on backorder a additional prescription sent into the drugs at [place] for levofloxacin 500 Milligrams daily for 10 days.
== END 2023-07-10 13:38 | disposition home or self-care (01) ==
PROVIDERS: Emergency Provider Physician Assistant; PCP Nurse Practitioner Family
DX: R11.2 Nausea with vomiting, unspecified (principal); R05.9 Cough, unspecified; R10.9 Unspecified abdominal pain; J44.9 Chronic obstructive pulmonary disease, unspecified; I10 Essential (primary) hypertension; E11.9 Type 2 diabetes mellitus without complications; K21.9 Gastro-esophageal reflux disease without esophagitis; E78.5 Hyperlipidemia, unspecified; Z79.84 Long term (current) use of oral hypoglycemic drugs; Z79.899 Other long term (current) drug therapy; K57.32 Diverticulitis of large intestine without perforation or abscess without bleeding
CPT/HCPCS: 80053; 83690; 93005; 96361; 96365; 96366; 96375; 99285; 71046; 74177; 81003; 83735; 85025; 93010; J0131; J2405

== ENCOUNTER 2023-07-14 09:22 | Emergency (ER) | payer MEDICARE, SELFPAY ==
--- NOTE | 2023-07-14 09:15 | DI.RAD_ITS ---
Exam(s) XR CHEST 2V PA LATERAL EXAM: XR CHEST 2V PA LATERAL CLINICAL HISTORY: Cough. TECHNIQUE: 2D digital imaging was performed. COMPARISON: CR XR CHEST 2V PA LATERAL from 07/10/2023 FINDINGS: 2 views: Heart size is normal. The mediastinum is not widened. Lungs are clear. No infiltrates nor pleural effusions. IMPRESSION: No acute pulmonary findings. DATA REPOSITORY: RADIATION DOSE DELIVERED:
[2023-07-14 09:16] VITALS: BP 140/89; PULSE 92; RESP 16; TEMP 36.6; O2SAT 99
--- NOTE | 2023-07-14 09:25 | ED.GENADUL_ITS ---
HPI General Mode of arrival: EMS . Date/Time Provider Initiated Documentation: 07/14/23 09:26 . Limitations to Documentation: no limitations . Information obtained by: patient, RN notes reviewed and old records reviewed . HPI Narrative: 73-year-old female presents to the ER via EMS with a chief complaint of cough. She was seen here on July 10 diagnosed with diverticulitis and pneumonia and was prescribed levofloxacin which per her records shows that it was filled 48 hours ago. Patient reports that she is taking this medication. She denies any nausea vomiting diarrhea denies any fever chills or pain at this time. She does states that she cannot sleep due to the cough. She has no bilateral lower extremity pitting edema, no other complaints or associated symptoms at this time . Past medical history includes hypertension, COPD, GERD, chronic low back pain, high cholesterol, asthma. She is alert and oriented x 4. She does have a congested cough noted. Posterior oropharynx slightly erythemic no exudate visualized. Related Data Home Medications Medication Instructions Recorded Confirmed pantoprazole 40 mg tablet,delayed 40 mg PO DAILY 02/20/13 07/14/23 release calcium carbonate 600 mg-vitamin 1 ea PO BID 10/10/17 07/14/23 D3 10 mcg (400 unit) tablet simvastatin 40 mg tablet 40 mg PO HS 10/10/17 07/14/23 magnesium oxide 400 mg PO BID 07/23/19 07/14/23 quetiapine 100 mg tablet 150 mg PO HS 10/18/20 07/14/23 inhalational spacing device #1 ea 06/17/21 07/14/23 (Aerochamber MV spacer) albuterol sulfate 90 mcg/actuation 2 inh inhalation Q4H PRN #1 ea 08/22/21 07/14/23 breath activated powder inhaler propranolol 40 mg tablet 40 mg PO BID 08/22/21 07/14/23 losartan 50 mg tablet 25 mg PO DAILY 12/12/22 07/14/23 glyburide 5 mg-metformin 500 mg 1 tab PO BID 02/01/23 07/14/23 tablet Saccharomyces boulardii 250 mg 250 mg PO BID #20 caps 07/10/23 07/14/23 capsule (Florastor) budesonide-formoterol HFA 160 1 puff inhalation BID 07/10/23 07/14/23 mcg-4.5 mcg/actuation aerosol inhaler (Symbicort) cetirizine 10 mg tablet (24Hour 10 mg PO DAILY PRN 07/10/23 07/14/23 Allergy) ferrous gluconate 324 mg (37.5 mg 324 mg PO DAILY 07/10/23 07/14/23 iron) tablet tiotropium bromide 1.25 2 puff inhalation DAILY 07/10/23 07/14/23 mcg/actuation mist for inhalation (Spiriva Respimat) levofloxacin 500 mg tablet 500 mg PO DAILY 10 days #10 tabs 07/12/23 07/14/23 Previous Rx's Medication Instructions Recorded inhalational spacing device #1 ea 06/17/21 (Aerochamber MV spacer) albuterol sulfate 90 mcg/actuation 2 inh inhalation Q4H PRN #1 ea 08/22/21 breath activated powder inhaler Saccharomyces boulardii 250 mg 250 mg PO BID #20 caps 07/10/23 capsule (Florastor) levofloxacin 500 mg tablet 500 mg PO DAILY 10 days #10 tabs 07/12/23 Allergies Allergy/AdvReac Type Severity Reaction Status Date / Time thiopental sodium Allergy Skin Rash Unverified 07/14/23 22:22 [From Pentothal] General Stated Complaint: RespSymp LYNNETTE: 4 Review of Systems Respiratory Respiratory: Reports change in phlegm color (yellow), Reports chest congestion and Reports cough PFSH All Active Problems (Updated 07/17/23 @ 17:22 by Katie Rabago NP) Cough (Acute) Nausea (Acute) Diverticulitis (Chronic) Pneumonia (Acute) Diverticulitis (Chronic) Lower respiratory infection (Acute) Hematochezia (Acute) Diverticulitis of large intestine (Acute) Anemia (Chronic) COPD (chronic obstructive pulmonary disease) (Chronic) Diverticulosis (Acute) Learning disability (Chronic) manages her own medications Palliative care patient (Chronic) DNR (do not resuscitate) (Chronic) DNI (do not intubate) (Chronic) Encounter for screening colonoscopy (Acute) Colonoscopy planned (Acute) Constipation (Chronic) takes lactulose to tx Financial difficulties (Chronic) Palliative care status (Chronic) Atypical chest pain (Acute) Bronchospasm (Acute) Shortness of breath (Acute) COVID-19 (Acute) with persistent cough Transient leg weakness (Acute) Illiterate (Chronic) able to manage independently Abnormal CT scan (Acute) Family history of colon cancer (Acute) Blood in stool (Acute) Diarrhea (Acute) COPD with acute exacerbation (Acute) Hypochromic microcytic anemia (Acute) Cough (Acute) Knee pain (Acute) Fatigue (Acute) Rectal bleeding (Acute) Medical History Family history of colorectal cancer Family history of colon cancer in mother Constipation, chronic Diabetes Leukocytosis Hypertension Hemorrhoid Polypharmacy COPD exacerbation Wheezing Dry cough asking for humidifier CHI (closed head injury) Fall Right anterior knee pain Lives alone with help available NO DPOA yet; ? state guardian?-pt. 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 Not complex. Cerumen impaction (12/29/13) Asthma (04/02/13) Restless legs takes Premapaxil Cyst of ovary Laparoscopic bilateral salpingo-oophorectomy on 04-09-[address]Anne Dangelo or. Path pending. Surgical History H/O arthroscopy of left knee (~01/2007) History of colonoscopy (~02/22/23) Oophrectomy, Both (04/09/13) laparotomy. aoc and kk. Abdominal hysterectomy (~1979) for heavy bleeding. Cholecystectomy laparoscopic 03/2011 Extraction of cataract in [place] Arthroplasty of knee L knee Dr Fuentes bladder suspension for incontinence Family History Sister Heart disease Son Parent-child estrangement nec Under care of [facility] life sentence for murder Daughter Parent-child estrangement nec Substance abuse Social History Smoking/Tobacco Use Status: Never Smoking risk assessment performed?: Yes Alcohol Intake: former Drug use: Never Substance use type: does not use Caregiver/Support person: No Household members: none Housing: apartment Number of Children: 0 Communication Needs: Cannot Read Education Level: middle school Details: finished 6th grade only Do you need help understanding health information?: Always current occupation: always disabled; worked as [employer] for 5 years in her late teens, early 20s Pets and animals: No Current gender identity: female What is your relationship status?: How often do you talk on the phone with friends or family?: never How often do you get together with friends or relatives?: never Panel score (0-1 are the most socially isolated patients): 0 What type of physical activity do you participate in: walking and irregular exercise Duration: < 15 minutes/day Frequency: 1-2 times per week Special pankaj needs: No Agree to transfusion: Yes Seatbelt use: always Drive intox or ride w/intox clark driver: No Water heater temp set <120 deg: Yes Working smoke detector in home: Yes Firearms in home: No Do you feel safe at home: Yes Do you feel safe in your relationship?: Yes Additional Social history: Lives at [facility], per pt. Exam Narrative Exam Narrative: Constitutional: Alert and oriented x3. Appears stated age. Normal body habitus. Head: Normocephalic, no trauma. Eyes: Pupils PERRL, Red reflex noted, EOM's intact. Eyelids symmetrical without lesions, discharge, or swelling. ENT: Bilateral TM's WNL, External ear normal to inspection, no mastoid TTP, swelling, or erythema, Nasal turbinates WNL, no nasal discharge. Normal dentition, Posterior pharynx slightly erythemic, no exudate. Chest: RRR, Normal S1, S2, distal pulses intact. Resp: Lungs slightly diminished in Right, otherwise clear to auscultation bilaterally, no wheezes, rales, or rhonchi. Abdomen: Soft, non-distended, Normoactive bowel sounds all 4 quads. Musculoskeletal: Unable to assess gait, 5/5 strength to all four extremities. Skin: No suspicious rashes or lesions. Capillary refill less than 2 sec. Neurologic: Cranial nerves II-XII intact. Alert and oriented x 3. Motor: No deficits noted. Sensory: Intact bilaterally all 4 extremities. Reflexes: DTR's intact bilaterally.. Hematologic/Lymphatic: No ecchymosis, no lymphadenopathy. Course Vital Signs Vital signs: Vital Signs Temperature 36.6 C 07/14/23 09:16 Pulse 92 H 07/14/23 09:16 Respiratory Rate 16 07/14/23 09:16 Blood Pressure 140/89 07/14/23 09:16 Pulse Oximetry 99 07/14/23 09:16 Temperature 36.6 C 07/14/23 09:16 Temperature Source Skin 07/14/23 09:16 Pulse 92 H 07/14/23 09:16 Respiratory Rate 16 07/14/23 09:16 Blood Pressure 140/89 07/14/23 09:16 Blood Pressure Position Sitting 07/14/23 09:16 Pulse Oximetry 99 07/14/23 09:16 Oxygen Delivery Method Room Air 07/14/23 09:16 Oxygen Flow Rate 0 07/14/23 09:16 Medical Decision Making 73-year-old female presents to the ER via EMS with a chief complaint of cough. She was seen here on July 10 diagnosed with diverticulitis and pneumonia and was prescribed levofloxacin which per her records shows that it was filled 48 hours ago. Patient reports that she is taking this medication. She denies any nausea vomiting diarrhea denies any fever chills or pain at this time. She does states that she cannot sleep due to the cough. She has no bilateral lower extremity pitting edema, no other complaints or associated symptoms at this time. Past medical history includes hypertension, COPD, GERD, chronic low back pain, high cholesterol, asthma. She is alert and oriented x 4. She does have a congested cough noted. Posterior oropharynx slightly erythemic no exudate visualized. At this time to 2 view chest x-ray ordered and a Fluvid swab. At this time patient has no complaints of chest pain or any other associated symptoms vital signs are stable she is afebrile she is alert and oriented she is currently taking levofloxacin daily x 10 days. Chest x-ray shows no acute findings no pleural effusion no pneumothorax no cardiomegaly no change from previous x-ray. Negative COVID flu RSV. Patient was given Tessalon Perlbernarda here in the department which seems to help her symptoms. Will encourage her to continue taking the levofloxacin and send her home with some Loriesalrosemary Donaldson with a prescription. Will encourage follow-up with PCP. This text was generated using [employer] system, please disregard any oddities of phrase or misspellings. Medical Records Medical records reviewed: Yes I reviewed the patient's medical records. Medical records narrative: Patient seen here July 01, and July 10 had labs, chest x-ray, negative COVID flu RSV at that time. Lab Data Lab results reviewed: Yes I reviewed the patient's lab results. Labs: Laboratory Tests Range/Units 07/14/23 09:31 COVID-19 Source Nasopharynx SARS-CoV-2 (PCR) (Negative) Negative Influenza Type A (PCR) (Negative) Negative Influenza Type B (PCR) (Negative) Negative RSV (PCR) (Negative) Negative Quality:SDOH Health Related Social Needs: Health related social needs transpo insecurity Health related social needs details pt with developmen luis delay, lives alone, unable to comprehend difficult medical concepts, limited reading. Discharge Plan Disposition Patient Disposition: Home Condition: Stable Discharge Details Clinical Impression: Cough Primary Care Provider: Sue Lopez ED Provider: Katie Rabago Home Meds and New Rx's Prescriptions: Continued quetiapine 100 mg tablet 150 mg PO HS (DME) 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 See Rx Instructions .ROUTE .MEDSUPPLY Qty: 1 0RF Rx Instructions: As directed glyburide-metformin 5-500 mg tablet 1 tab PO BID pantoprazole 40 MG tablet,delayed release (DR/EC) 40 mg PO DAILY budesonide-formoterol [Symbicort] 160-4.5 mcg/actuation HFA aerosol inhaler 1 puff INHALATION BID Patient Comments: INHALE 1 PUFF BY MOUTH TWO TIMES A DAY Spiriva Respimat 1.25 mcg/actuation mist 2 puff INHALATION DAILY Patient Comments: INHALE TWO PUFFS BY MOUTH EVERY DAY cetirizine [24Hour Allergy] 10 mg tablet 10 mg PO DAILY PRN ferrous gluconate 324 mg (37.5 mg iron) tablet 324 mg PO DAILY Patient Comments: TAKE ONE TABLET BY MOUTH EVERY DAY Saccharomyces boulardii [Florastor] 250 mg capsule 250 mg PO BID Qty: 20 0RF levofloxacin 500 mg tablet 500 mg PO DAILY 10 Days Qty: 10 0RF Rx Instructions: Take one tablet by mouth daily for 10 days simvastatin 40 MG tablet 40 mg PO HS calcium carbonate-vitamin D3 1 EACH tablet 1 ea PO BID magnesium oxide 400 mg magnesium Capsule 400 mg PO BID losartan 50 mg tablet 25 mg PO DAILY Patient Comments: TAKE ONE TABLET BY MOUTH EVERY DAY propranolol 40 mg tablet 40 mg PO BID Patient Comments: TAKE ONE TABLET BY MOUTH TWICE A DAY albuterol sulfate 90 mcg/actuation aerosol powdr breath activated 2 inh inhalation Q4H PRNQty: 1 0RF Discharge Instructions Instructions: Acute Cough (ED) Additional Instructions: At this time no evidence of COVID, flu, or RSV. No evidence of pneumonia or fluid in your lungs. Please take the Tessalon Perle medication that we gave you here up to 3 times daily as needed for cough. Follow up with primary care provider in 3-5 days. Return to ED sooner if any worsening or concerns. Continue to take the antibiotic levofloxacin medication that you started recently. Referrals: Sue Lopez [Primary Care Provider] - 3 days Discharge Data Discharge Date/Time-TO BE ENTERED AT DEPARTURE: 07/14/23 11:58
[2023-07-14] MEDS: Benzonatate 100 MG CAP PO (09:34)
--- NOTE | 2023-07-14 09:45 | DI.VRAD_ITS ---
PROCEDURE INFORMATION: Exam: XR Chest Exam date and time: 07/14/2023 9:38 AM Age: 73 years old Clinical indication: Other: Cough TECHNIQUE: Imaging protocol: Radiologic exam of the chest. Views: 2 views. COMPARISON: CR XR CHEST 2V PA LATERAL 07/10/2023 11:10 AM FINDINGS: Lungs: Unremarkable. No consolidation. Pleural spaces: Unremarkable. No pleural effusion. No pneumothorax. Heart/Mediastinum: Unremarkable. No cardiomegaly. Bones/joints: Unremarkable. IMPRESSION: No acute findings. Dictated and Authenticated by: Alex Yang MD. Ordering:ANGELITA Wilson MD
[2023-07-14 10:18] LABS: COVID-19 PCR Negative (Negative); Influenza A PCR Negative (Negative); Influenza B PCR Negative (Negative); RSV PCR Negative (Negative)
[2023-07-14 10:25] LABS: Source Nasopharynx
[2023-07-14] MEDS: Benzonatate 100 MG CAP 200 MG PO (11:36)
== END 2023-07-14 11:58 | disposition home or self-care (01) ==
LOC: ER 10:50
PROVIDERS: Emergency Provider Registered Nurse Emergency; PCP Nurse Practitioner Family
DX: R05.9 Cough, unspecified (principal); Z87.01 Personal history of pneumonia (recurrent)
CPT/HCPCS: 87637; 99283; 71046

== ENCOUNTER 2023-07-14 22:05 | Emergency (ER) | payer MEDICARE, MEDICAID, SELFPAY ==
[2023-07-14] VITALS (7 sets, daily range): BP systolic 129; BP diastolic 85; PULSE 73–83; RESP 15–20; TEMP 36.9; O2SAT 97
--- NOTE | 2023-07-14 22:27 | ED.GENADUL_ITS ---
HPI General Stated Complaint: RespSymp LYNNETTE: 4 Date/Time Provider Initiated Documentation: 07/14/23 22:13. HPI Narrative: 73-year-old female with a past medical history of COPD, hypertension, diabetes, GERD, high cholesterol, hysterectomy, oophorectomy, cholecystectomy, who was recently diagnosed with pneumonia and diverticulitis within the past week, and is currently on Levaquin. She lives home alone. She presents today again by EMS for not being able to sleep. She states that she still has mild nausea, mild abdominal achiness, and was not able to sleep tonight. She took 100 mg of her quetiapine 100 mg just before she left with EMS, and she states that now she is feeling better and tired. She has no other complaints. She has multiple visits recently. I do worry that she may be slightly nervous at home. She denies any vomiting or diarrhea. She has been taking her medications as directed. No other complaints at this time. Related Data Home Medications Medication Instructions Recorded Confirmed pantoprazole 40 mg tablet,delayed 40 mg PO DAILY 02/20/13 07/14/23 release calcium carbonate 600 mg-vitamin 1 ea PO BID 10/10/17 07/14/23 D3 10 mcg (400 unit) tablet simvastatin 40 mg tablet 40 mg PO HS 10/10/17 07/14/23 magnesium oxide 400 mg PO BID 07/23/19 07/14/23 quetiapine 100 mg tablet 150 mg PO HS 10/18/20 07/14/23 inhalational spacing device #1 ea 06/17/21 07/14/23 (Aerochamber MV spacer) albuterol sulfate 90 mcg/actuation 2 inh inhalation Q4H PRN #1 ea 08/22/21 07/14/23 breath activated powder inhaler propranolol 40 mg tablet 40 mg PO BID 08/22/21 07/14/23 losartan 50 mg tablet 25 mg PO DAILY 12/12/22 07/14/23 glyburide 5 mg-metformin 500 mg 1 tab PO BID 02/01/23 07/14/23 tablet Saccharomyces boulardii 250 mg 250 mg PO BID #20 caps 07/10/23 07/14/23 capsule (Florastor) budesonide-formoterol HFA 160 1 puff inhalation BID 07/10/23 07/14/23 mcg-4.5 mcg/actuation aerosol inhaler (Symbicort) cetirizine 10 mg tablet (24Hour 10 mg PO DAILY PRN 07/10/23 07/14/23 Allergy) ferrous gluconate 324 mg (37.5 mg 324 mg PO DAILY 07/10/23 07/14/23 iron) tablet tiotropium bromide 1.25 2 puff inhalation DAILY 07/10/23 07/14/23 mcg/actuation mist for inhalation (Spiriva Respimat) levofloxacin 500 mg tablet 500 mg PO DAILY 10 days #10 tabs 07/12/23 07/14/23 Previous Rx's Medication Instructions Recorded inhalational spacing device #1 ea 06/17/21 (Aerochamber MV spacer) albuterol sulfate 90 mcg/actuation 2 inh inhalation Q4H PRN #1 ea 08/22/21 breath activated powder inhaler Saccharomyces boulardii 250 mg 250 mg PO BID #20 caps 07/10/23 capsule (Florastor) levofloxacin 500 mg tablet 500 mg PO DAILY 10 days #10 tabs 07/12/23 Allergies Allergy/AdvReac Type Severity Reaction Status Date / Time thiopental sodium Allergy Skin Rash Unverified 07/14/23 22:22 [From Pentothal] Review of Systems All systems reviewed & are unremarkable except as noted in HPI and below PFSH All Active Problems (Updated 07/15/23 @ 01:40 by Hal Olmstead DO) Nausea (Acute) Diverticulitis (Chronic) Pneumonia (Acute) Diverticulitis (Chronic) Lower respiratory infection (Acute) Hematochezia (Acute) Diverticulitis of large intestine (Acute) Anemia (Chronic) COPD (chronic obstructive pulmonary disease) (Chronic) Diverticulosis (Acute) Learning disability (Chronic) manages her own medications Palliative care patient (Chronic) DNR (do not resuscitate) (Chronic) DNI (do not intubate) (Chronic) Encounter for screening colonoscopy (Acute) Colonoscopy planned (Acute) Constipation (Chronic) takes lactulose to tx Financial difficulties (Chronic) Palliative care status (Chronic) Atypical chest pain (Acute) Bronchospasm (Acute) Shortness of breath (Acute) COVID-19 (Acute) with persistent cough Transient leg weakness (Acute) Illiterate (Chronic) able to manage independently Abnormal CT scan (Acute) Family history of colon cancer (Acute) Blood in stool (Acute) Diarrhea (Acute) COPD with acute exacerbation (Acute) Hypochromic microcytic anemia (Acute) Cough (Acute) Knee pain (Acute) Fatigue (Acute) Rectal bleeding (Acute) Medical History Family history of colorectal cancer Family history of colon cancer in mother Constipation, chronic Diabetes Leukocytosis Hypertension Hemorrhoid Polypharmacy COPD exacerbation Wheezing Dry cough asking for humidifier CHI (closed head injury) Fall Right anterior knee pain Lives alone with help available NO DPOA yet; ? state guardian?-pt. confirmed no on both as of 02/21/23 Hair loss Learning disability Social isolation Chronic low back pain Goals of care, counseling/discussion GERD (gastroesophageal reflux disease) Sleep disorder Anxiety Vertigo Onychomycosis Carpal tunnel syndrome Leukocytosis (leucocytosis) Hypomagnesemia Eczema Benign essential tremor Diabetes mellitus HTN (hypertension) Hypercholesterolemia Neoplasm of skin (12/29/13) Mixed stress and urge urinary incontinence (09/22/16) Hyperlipidemia (04/02/13) Urinary, incontinence, stress female (04/02/13) Essential hypertension (04/02/13) Depression (04/02/13) Cyst of ovary (03/12/13) 02/26/13 L ovary [id number], R ovary [id number]. Not complex. Cerumen impaction (12/29/13) Asthma (04/02/13) Restless legs takes Premapaxil Cyst of ovary Laparoscopic bilateral salpingo-oophorectomy on 04-09-[address]Anne Medina. Path pending. Surgical History H/O arthroscopy of left knee (~01/2007) History of colonoscopy (~02/22/23) Oophrectomy, Both (04/09/13) laparotomy. aoc and kk. Abdominal hysterectomy (~1979) for heavy bleeding. Cholecystectomy laparoscopic 03/2011 Extraction of cataract in [place] Arthroplasty of knee L knee Dr Fuentes bladder suspension for incontinence Family History Sister Heart disease Son Parent-child estrangement nec Under care of [facility] service life sentence for murder Daughter Parent-child estrangement nec Substance abuse Social History Smoking/Tobacco Use Status: Never Smoking risk assessment performed?: Yes Alcohol Intake: former Drug use: Never Substance use type: does not use Caregiver/Support person: No Household members: none Housing: apartment Number of Children: 0 Communication Needs: Cannot Read Education Level: middle school Details: finished 6th grade only Do you need help understanding health information?: Always current occupation: always disabled; worked as [employer] for 5 years in her late teens, early 20s Pets and animals: No Current gender identity: female What is your relationship status?: How often do you talk on the phone with friends or family?: never How often do you get together with friends or relatives?: never Panel score (0-1 are the most socially isolated patients): 0 What type of physical activity do you participate in: walking and irregular exercise Duration: < 15 minutes/day Frequency: 1-2 times per week Special pankaj needs: No Agree to transfusion: Yes Seatbelt use: always Drive intox or ride w/intox driver utility worker: No Water heater temp set <120 deg: Yes Working smoke detector in home: Yes Firearms in home: No Do you feel safe at home: Yes Do you feel safe in your relationship?: Yes Additional Social history: Lives at [facility], per pt. Exam Narrative Exam Narrative: 1.Const: Well-nourished, Well-developed, appearing stated age 2.Eyes: PERRL, no conjunctival injection, and symmetrical lids. 3.ENT: Atraumatic external nose and ears. Moist MM. Neck: Symmetric, trachea midline, No thyromegaly. 4.CVS: +S1/S2, No murmurs or gallops. Peripheral pulses 2+ and equal in all extremities. Brisk capillary refill in all extremities. 5.RESP: Unlabored respiratory effort. Clear to auscultation bilaterally. No wheezes rales or rhonchi 6.GI: Soft, nondistended, mild achiness throughout. No evidence of an acute surgical abdomen. 7.MSK: Normocephalic/Atraumatic, Extremities w/o deformity or ttp No cyanosis or clubbing, Normal movement of all extremities 8.Skin: Warm, Dry. No rashes or lesions. 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 Sensation grossly intact, no focal neurologic deficits. 10.Psych: (AAO) x3. Appropriate mood and affect Course Vital Signs Vital signs: Vital Signs Temperature 36.9 C 07/14/23 22:25 Pulse 78 07/14/23 22:25 Respiratory Rate 16 07/14/23 22:25 Blood Pressure 129/85 07/14/23 22:25 Pulse Oximetry 97 07/14/23 22:25 Temperature 36.9 C 07/14/23 22:25 Temperature Source Oral 07/14/23 22:25 Pulse 78 07/14/23 22:25 Respiratory Rate 16 07/14/23 22:25 Blood Pressure 129/85 07/14/23 22:25 Blood Pressure Position Sitting 07/14/23 22:25 Pulse Oximetry 97 07/14/23 22:25 Oxygen Delivery Method Room Air 07/14/23: Oxygen Flow Rate 0 07/14/23 22:25 Pain Level 7 07/14/23 22:25 Medical Decision Making 73-year-old female with a past medical history of COPD, hypertension, diabetes, GERD, high cholesterol, hysterectomy, oophorectomy, cholecystectomy, who was recently diagnosed with pneumonia and diverticulitis within the past week, and is currently on Levaquin. She lives home alone. She presents today again by EMS for not being able to sleep. She states that she still has mild nausea, mild abdominal achiness, and was not able to sleep tonight. She took 100 mg of her quetiapine 100 mg just before she left with EMS, and she states that now she is feeling better and tired. She has no other complaints. She has multiple visits recently. I do worry that she may be slightly nervous at home. She denies any vomiting or diarrhea. She has been taking her medications as directed. No other complaints at this time. Exam demonstrates well-appearing female, clear lung sounds, notably stable vital signs with no tachycardia, tachypnea, fever, hypotension, or hypoxemia. Abdominal exam demonstrates mild achiness. Patient states that he does not feel any worse that it previously did when she had diverticulitis. She states that it feels the same. No vomiting. No signs of an acute surgical abdomen on exam whatsoever. I suspect that the patient's symptoms are improving. She demonstrates a notably benign exam in general. Symptoms do not appear consistent at this time with perforation or evidence of new acute intra- abdominal process surgically relevant. With the patient being actively treated for diverticulitis and pneumonia, I do not feel that repeat imaging or labs is indicated at this time. On assessment at this time: I do feel that the patient is quite nervous at home, and may have some mild difficulty with coping skills due to her intellectual functionality and currently living alone. With the patient's symptoms otherwise benign, I see no evidence of an acute emergent etiology at this time. However at 10:30 PM there are no longer any rides back home. I do feel it reasonable to keep the patient here in the ER this evening comfortable, we will give her Zofran and Tylenol, will monitor closely with disposition in the morning once RCT is available. 7:31 AM Patient slept well throughout the night. No interventions otherwise needed. Patient will be discharged home with Zofran and recommend for continuation of previously prescribed meds from yesterday. Discussed red flags which return. I have extensively reviewed the treatment plan and discharge instructions with the patient. I have addressed all patient concerns at this time. The patient was made aware of what symptoms to monitor for that would warrant a return to the emergency department. Discussed the plan with the patient, they demonstrate verbal understanding and agreement with our assessment and plan at this time. The documentation in this chart was dictated using [employer] dictation software. Please excuse any dictation errors. Quality:SDOH Health Related Social Needs: Health related social needs transpo insecurity Health related social needs details pt with developmen luis delay, lives alone, unable to comprehend difficult medical concepts, limited reading. Discharge Plan Disposition Patient Disposition: Home Condition: Good Discharge Details Clinical Impression: Diverticulitis, Nausea Primary Care Provider: Sue Lopez ED Provider: Hal Olmstead Home Meds and New Rx's Prescriptions: No Action quetiapine 100 mg tablet 150 mg PO HS (DME) 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 See Rx Instructions .ROUTE .MEDSUPPLY Qty: 1 0RF Rx Instructions: As directed glyburide-metformin 5-500 mg tablet 1 tab PO BID pantoprazole 40 MG tablet,delayed release (DR/EC) 40 mg PO DAILY budesonide-formoterol [Symbicort] 160-4.5 mcg/actuation HFA aerosol inhaler 1 puff INHALATION BID Patient Comments: INHALE 1 PUFF BY MOUTH TWO TIMES A DAY Spiriva Respimat 1.25 mcg/actuation mist 2 puff INHALATION DAILY Patient Comments: INHALE TWO PUFFS BY MOUTH EVERY DAY cetirizine [24Hour Allergy] 10 mg tablet 10 mg PO DAILY PRN ferrous gluconate 324 mg (37.5 mg iron) tablet 324 mg PO DAILY Patient Comments: TAKE ONE TABLET BY MOUTH EVERY DAY Saccharomyces boulardii [Florastor] 250 mg capsule 250 mg PO BID Qty: 20 0RF levofloxacin 500 mg tablet 500 mg PO DAILY 10 Days Qty: 10 0RF Rx Instructions: Take one tablet by mouth daily for 10 days simvastatin 40 MG tablet 40 mg PO HS calcium carbonate-vitamin D3 1 EACH tablet 1 ea PO BID magnesium oxide 400 mg magnesium Capsule 400 mg PO BID losartan 50 mg tablet 25 mg PO DAILY Patient Comments: TAKE ONE TABLET BY MOUTH EVERY DAY propranolol 40 mg tablet 40 mg PO BID Patient Comments: TAKE ONE TABLET BY MOUTH TWICE A DAY albuterol sulfate 90 mcg/actuation aerosol powdr breath activated 2 inh inhalation Q4H PRNQty: 1 0RF Discharge Instructions Instructions: Diverticulitis (ED) Additional Instructions: At this time your pain is likely from diverticulitis. Please continue to take your antibiotic as directed. You can take 1000 mg of Tylenol every 6 hours as needed for pain. Please take the Zofran nausea pills that we gave you as needed for nausea. If you notice any worsening of your symptoms, or any new symptoms such as vomiting, diarrhea, fever, chills, shortness of breath, chest pain, numbness, weakness, or fainting , please return immediately to the emergency department for reevaluation. Please follow up with your primary care provider as soon as possible for reassessment and reevaluation. As always, it was a pleasure participating in your medical care today. Referrals: Sue Lopez [Primary Care Provider] -
[2023-07-14] MEDS: Acetaminophen 500 MG TAB 1000 MG PO (23:10)
[2023-07-14] MEDS: Ondansetron O.D.T. 4 MG TABEF PO (23:10)
[2023-07-15 05:00] VITALS: BP 160/64; PULSE 89; RESP 18; TEMP 36.5; O2SAT 94
--- NOTE | 2023-07-15 07:33 | ED.PROG_ITS ---
Date of service: 07/15/23 Time of Service: 07:33 Medical Decision Making This patient was discharged on my shift. She was being discharged at the time of signout so I ordered her several ondansetron tablets to go. I did not see the patient on my shift. Quality:SDOH Health Related Social Needs: Health related social needs transpo insecurity Health related social needs details pt with developmen luis delay, lives a lone, unable to comprehend difficult medical concepts, limited reading. Discharge Plan Disposition Patient Disposition: Home Condition: Good Discharge Details Clinical Impression: Diverticulitis, Nausea Primary Care Provider: Sue Lopez ED Provider: Hal Olmstead Home Meds and New Rx's Prescriptions: No Action quetiapine 100 mg tablet 150 mg PO HS (DME) 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 See Rx Instructions .ROUTE .MEDSUPPLY Qty: 1 0RF Rx Instructions: As directed glyburide-metformin 5-500 mg tablet 1 tab PO BID pantoprazole 40 MG tablet,delayed release (DR/EC) 40 mg PO DAILY budesonide-formoterol [Symbicort] 160-4.5 mcg/actuation HFA aerosol inhaler 1 puff INHALATION BID Patient Comments: INHALE 1 PUFF BY MOUTH TWO TIMES A DAY Spiriva Respimat 1.25 mcg/actuation mist 2 puff INHALATION DAILY Patient Comments: INHALE TWO PUFFS BY MOUTH EVERY DAY cetirizine [24Hour Allergy] 10 mg tablet 10 mg PO DAILY PRN ferrous gluconate 324 mg (37.5 mg iron) tablet 324 mg PO DAILY Patient Comments: TAKE ONE TABLET BY MOUTH EVERY DAY Saccharomyces boulardii [Florastor] 250 mg capsule 250 mg PO BID Qty: 20 0RF levofloxacin 500 mg tablet 500 mg PO DAILY 10 Days Qty: 10 0RF Rx Instructions: Take one tablet by mouth daily for 10 days simvastatin 40 MG tablet 40 mg PO HS calcium carbonate-vitamin D3 1 EACH tablet 1 ea PO BID magnesium oxide 400 mg magnesium Capsule 400 mg PO BID losartan 50 mg tablet 25 mg PO DAILY Patient Comments: TAKE ONE TABLET BY MOUTH EVERY DAY propranolol 40 mg tablet 40 mg PO BID Patient Comments: TAKE ONE TABLET BY MOUTH TWICE A DAY albuterol sulfate 90 mcg/actuation aerosol powdr breath activated 2 inh inhalation Q4H PRNQty: 1 0RF Discharge Instructions Instructions: Diverticulitis (ED) Additional Instructions: At this time your pain is likely from diverticulitis. Please continue to take your antibiotic as directed. You can take 1000 mg of Tylenol every 6 hours as needed for pain. Please take the Zofran nausea pills that we gave you as needed for nausea. If you notice any worsening of your symptoms, or any new symptoms such as vomiting, diarrhea, fever, chills, shortness of breath, chest pain, numbness, weakness, or fainting , please return immediately to the emergency department for reevaluation. Please follow up with your primary care provider as soon as possible for reassessment and reevaluation. As always, it was a pleasure participating in your medical care today. Referrals: Sue Lopez [Primary Care Provider] -
[2023-07-15] MEDS: Ondansetron O.D.T. 4 MG TABEF, 3 TABS/BTL PO (07:36)
== END 2023-07-15 07:38 | disposition home or self-care (01) ==
PROVIDERS: Emergency Provider Student in an Organized Health Care Education/Training Program; PCP Nurse Practitioner Family
DX: G47.00 Insomnia, unspecified (principal); K57.92 Diverticulitis of intestine, part unspecified, without perforation or abscess without bleeding; E11.9 Type 2 diabetes mellitus without complications; I10 Essential (primary) hypertension; J44.9 Chronic obstructive pulmonary disease, unspecified; E78.00 Pure hypercholesterolemia, unspecified; Z79.899 Other long term (current) drug therapy
CPT/HCPCS: 00123; 87637; 99283; 71046

== ENCOUNTER 2024-01-14 04:31 | Emergency (ER) | payer MEDICARE, MEDICAID, SELFPAY ==
[2024-01-14] VITALS (11 sets, daily range): BP systolic 153–182; BP diastolic 86–126; PULSE 81–95; RESP 18; TEMP 36.4–36.5; O2SAT 95–98
[2024-01-14] MEDS: Lactated Ringers 1,000 ML 1000 ML IV (04:29)
--- NOTE | 2024-01-14 04:32 | ED.GENADUL_ITS ---
Discharge Plan Disposition Patient Disposition: Home Condition: Good Discharge Details Clinical Impression: Abdominal pain Primary Care Provider: Unknown,Unknown ED Provider: Benson Harper Meds and New Rx's Prescriptions: Continued quetiapine 100 mg tablet 150 mg PO HS (DME) 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 See Rx Instructions .ROUTE .MEDSUPPLY Qty: 1 0RF Rx Instructions: As directed glyburide-metformin 5-500 mg tablet 1 tab PO BID pantoprazole 40 MG tablet,delayed release (DR/EC) 40 mg PO DAILY budesonide-formoterol [Symbicort] 160-4.5 mcg/actuation HFA aerosol inhaler 1 puff INHALATION BID Patient Comments: INHALE 1 PUFF BY MOUTH TWO TIMES A DAY Spiriva Respimat 1.25 mcg/actuation mist 2 puff INHALATION DAILY Patient Comments: INHALE TWO PUFFS BY MOUTH EVERY DAY cetirizine [24Hour Allergy] 10 mg tablet 10 mg PO DAILY PRN ferrous gluconate 324 mg (37.5 mg iron) tablet 324 mg PO DAILY Patient Comments: TAKE ONE TABLET BY MOUTH EVERY DAY Saccharomyces boulardii [Florastor] 250 mg capsule 250 mg PO BID Qty: 20 0RF simvastatin 40 MG tablet 40 mg PO HS calcium carbonate-vitamin D3 1 EACH tablet 1 ea PO BID magnesium oxide 400 mg magnesium Capsule 400 mg PO BID losartan 50 mg tablet 25 mg PO DAILY Patient Comments: TAKE ONE TABLET BY MOUTH EVERY DAY propranolol 40 mg tablet 40 mg PO BID Patient Comments: TAKE ONE TABLET BY MOUTH TWICE A DAY albuterol sulfate 90 mcg/actuation aerosol powdr breath activated 2 inh inhalation Q4H PRNQty: 1 0RF Discharge Instructions Instructions: Abdominal Pain, Adult ED Additional Instructions: You were seen in the ED for abdominal pain and concerns for constipation. Your workup is reassuring with unremarkable labs and no acute pathology noted on your CT scan. Specifically, there is no evidence of diverticulitis or other significant pathology. Please follow-up with primary care this week for recheck. Return to ED for any fever, persistent vomiting, worsening abdominal pain, bloody diarrhea, other concerns. HPI General Mode of arrival: EMS . Date/Time Provider Initiated Documentation: 01/14/24 04:32 . Limitations to Documentation: no limitations . Information obtained by: patient, RN notes reviewed and old records reviewed . HPI Narrative: Patient presenting to ED by ambulance with complaint of constipation and abdominal pain. Patient reports she has not had a bowel movement in 2 days. She is having left lower quadrant abdominal pain. She has a history of constipation but does not typically have abdominal pain. Denies any urinary symptoms. Denies any rectal pain. Denies any nausea/vomiting. No radiation of pain to the back. No reported fever. Denies any chest pain, shortness of breath, cough. Related Data Home Medications ?Medication ?Instructions ?Recorded ?Confirmed pantoprazole 40 mg tablet,delayed 40 mg PO DAILY 02/20/13 01/14/24 release calcium carbonate 600 mg-vitamin 1 ea PO BID 10/10/17 01/14/24 D3 10 mcg (400 unit) tablet simvastatin 40 mg tablet 40 mg PO HS 10/10/17 01/14/24 magnesium oxide 400 mg PO BID 07/23/19 01/14/24 quetiapine 100 mg tablet 150 mg PO HS 10/18/20 01/14/24 inhalational spacing device #1 ea 06/17/21 01/14/24 (Aerochamber MV spacer) albuterol sulfate 90 mcg/actuation 2 inh inhalation Q4H PRN #1 ea 08/22/21 01/14/24 breath activated powder inhaler propranolol 40 mg tablet 40 mg PO BID 08/22/21 01/14/24 losartan 50 mg tablet 25 mg PO DAILY 12/12/22 01/14/24 glyburide 5 mg-metformin 500 mg 1 tab PO BID 02/01/23 01/14/24 tablet Saccharomyces boulardii 250 mg 250 mg PO BID #20 caps 07/10/23 01/14/24 capsule (Florastor) budesonide-formoterol HFA 160 1 puff inhalation BID 07/10/23 01/14/24 mcg-4.5 mcg/actuation aerosol inhaler (Symbicort) cetirizine 10 mg tablet (24Hour 10 mg PO DAILY PRN 07/10/23 01/14/24 Allergy) ferrous gluconate 324 mg (37.5 mg 324 mg PO DAILY 07/10/23 01/14/24 iron) tablet tiotropium bromide 1.25 2 puff inhalation DAILY 07/10/23 01/14/24 mcg/actuation mist for inhalation (Spiriva Respimat) Previous Rx's ?Medication ?Instructions ?Recorded inhalational spacing device #1 ea 06/17/21 (Aerochamber MV spacer) albuterol sulfate 90 mcg/actuation 2 inh inhalation Q4H PRN #1 ea 08/22/21 breath activated powder inhaler Saccharomyces boulardii 250 mg 250 mg PO BID #20 caps 07/10/23 capsule (Florastor) Allergies Allergy/AdvReac Type Severity Reaction Status Date / Time thiopental sodium (From Allergy Skin Rash Unverified 01/14/24 04:37 Pentothal) General LYNNETTE: 4 Review of Systems Narrative: Per HPI Exam Narrative Exam Narrative: Const: WDWN elderly female in NAD. VS per triage. HEENT: NC/AT. Normal facial exam. Neck: Supple. Trachea midline. Lungs: Normal respiratory effort. Cor: RRR. Good radial pulses. GI: Soft/ND. Tender in the LLQ with mild voluntary guarding. Neuro: A+O x 3. Normal speech, mentation. Cranial nerves II - XII grossly intact. No gross motor or sensory deficit. Ext: No C/C/E. Medical Decision Making Patient presenting with left lower quadrant abdominal pain and tenderness. Also complaining of constipation. Constipation is a chronic problem. She is not c omplaining of rectal pain. Medical records show that she has had history of diverticulitis in the past. Given her pain and tenderness more concerned for this then simple constipation. As such IV is ordered, fluids started, acetaminophen given. Laboratory studies and CT scan obtained. 07:15 - Patient's labs are reassuring with a white count of 7.5, normal hemoglobin, slightly low potassium at 3.3 otherwise unremarkable BMP and normal LFTs/lipase. CT preliminary read per radiology with no significant acute pathology, specifically no diverticulitis. She does have a fluid-filled/liquid stool throughout her colon likely related to the laxatives she was using for her constipation. On reevaluation patient is feeling better after fluids and IV acetaminophen. She actually feels that she needs to have a bowel movement. We still need to check urinalysis as well. Patient is cleared for breakfast. Disposition pending urinalysis results. 07:50 - Patient's urinalysis is negative. Patient to be discharged home at this time. She may follow-up with primary care. Return precautions provided. Medical Records Medical records reviewed: Yes I reviewed the patient's medical records. Medical records narrative: Palliative care notes Lab Data Lab results reviewed: Yes I reviewed the patient's lab results. Lab results narrative: See MDM Quality:SDOH Health Related Social Needs: Health related social needs transpo insecurity Health related social needs details pt with developmen luis francisco, lives a lone, unable to comprehend difficult medical concepts, limited reading. PFSH All Active Problems (Updated 01/14/24 @ 07:17 by Benson Harper MD) Abdominal pain (Acute) Social isolation (Acute) Goals of care, counseling/discussion (Acute) Carpal tunnel syndrome (Acute) Urinary, incontinence, stress female (Acute 04/02/13) Hair loss (Acute) Lives alone with help available (Acute) NO DPOA yet; ? state guardian?-pt. confirmed no on both as of 02/21/23 CHI (closed head injury) (Acute) Polypharmacy (Acute) At increased risk for social isolation (Acute) Low energy (Acute) Advance care planning (Acute) Impaired instrumental activities of daily living (Acute) Palliative care patient (Acute) Anemia (Chronic) Diverticulosis (Acute) Learning disability (Chronic) manages her own medications DNR (do not resuscitate) (Chronic) DNI (do not intubate) (Chronic) Constipation (Chronic) takes lactulose to tx Financial difficulties (Chronic) Illiterate (Chronic) able to manage independently Abnormal CT scan (Acute) Family history of colon cancer (Acute) Diarrhea (Acute) Hypochromic microcytic anemia (Acute) Cough (Acute) Knee pain (Acute) Fatigue (Acute) Medical History COPD (chronic obstructive pulmonary disease) Learning disability Chronic low back pain GERD (gastroesophageal reflux disease) Sleep disorder Anxiety Vertigo Onychomycosis Eczema Benign essential tremor Diabetes mellitus HTN (hypertension) Neoplasm of skin (12/29/13) Hyperlipidemia (04/02/13) Depression (04/02/13) Restless legs takes Premapaxil Surgical History H/O arthroscopy of left knee (~01/2007) History of colonoscopy (~02/22/23) Oophrectomy, Both (04/09/13) laparotomy. aoc and kk. Abdominal hysterectomy (~1979) for heavy bleeding. Cholecystectomy laparoscopic 03/2011 Extraction of cataract in [place] Arthroplasty of knee L knee Dr Fuentes bladder suspension for incontinence Family History Sister Heart disease Son Parent-child estrangement nec Under care of senior care service life sentence for murder Daughter Parent-child estrangement nec Substance abuse Social History Smoking/Tobacco Use Status: Never Smoking risk assessment performed?: Yes Alcohol Intake: former Drug use: Never Substance use type: does not use Caregiver/Support person: No Household members: none Housing: apartment Number of Children: 0 Communication Needs: Cannot Read Education Level: middle school Details: finished 6th grade only Do you need help understanding health information?: Always current occupation: always disabled; worked as [employer] for 5 years in her late teens, early 20s Pets and animals: No Current gender identity: female What is your relationship status?: How often do you talk on the phone with friends or family?: never How often do you get together with friends or relatives?: never Panel score (0-1 are the most socially isolated patients): 0 What type of physical activity do you participate in: walking and irregular exercise Duration: < 15 minutes/day Frequency: 1-2 times per week Special pankaj needs: No Agree to transfusion: Yes Seatbelt use: always Drive intox or ride w/intox delivery route driver: No Water heater temp set <120 deg: Yes Working smoke detector in home: Yes Firearms in home: No Do you feel safe at home: Yes Do you feel safe in your relationship?: Yes Additional Social history: Lives at [facility], per pt.
--- NOTE | 2024-01-14 04:45 | DI.CT_ITS ---
Exam(s) CT ABDOMEN PELVIS W EXAM: CT ABDOMEN PELVIS W CLINICAL HISTORY: LLQ pain/tenderness. TECHNIQUE: Imaging Protocol: Axial computed tomography images with coronal and sagittal reformatted images were created and reviewed CONTRAST MATERIAL: Intravenous: Omnipaque-350 100cc Oral: None COMPARISON: CT CT ABDOMEN PELVIS W from 07/10/2023 FINDINGS: VISUALIZED LUNG BASES: No nodules nor pleural effusions evident. ABDOMEN: There is no ascites. LIVER: There are no focal hepatic lesions evident. No dilated intrahepatic ducts. GALLBLADDER/BILIARY: Gallbladder is again noted be surgically absent. CBD is not dilated. PANCREAS: No evidence of pancreatic mass nor dilatation of the pancreatic duct. SPLEEN: Spleen is not enlarged. No obvious intrasplenic lesions. Splenic and portal veins are paten t. ADRENALS: There are no significant adrenal masses. KIDNEYS:Tiny nonobstructive calculus in lower pole of the right kidney again noted. No other signifi cant focal right kidney findings. There is again noted a peripherally calcified cyst in the upper po le of the left kidney, unchanged. Mild left perinephric streaking is unchanged. Small exophytic cys t seen off the lateral cortex of the left kidney, unchanged. Does not require further investigation. No hydronephrosis. However, the diameter of the left ureter is slightly prominent throughout its c ourse, measuring up to 6 mm. There does not appear to be a radiopaque calculus within the lower left ureter nor within the urinary bladder.. ABDOMINAL AORTA: Calcified but not enlarged. Iliac arteries not enlarged. LYMPH NODES:There is no retroperitoneal nor paraaortic adenopathy. ABDOMINAL WALL: No evidence of significant anterior abdominal wall nor inguinal hernia. GI: No evidence of small-bowel obstruction. Liquid stool seen throughout the colon. There are diver ticuli in the left colon and sigmoid without evidence of obvious acute diverticulitis. PELVIS: GI: Appendix surgically absent. LYMPH NODES: There is no intrapelvic nor inguinal adenopathy. REPRODUCTIVE: Uterus surgically absent. No abnormal adnexal masses nor free fluid. URINARY BLADDER:. Mildly distended. No calculi nor obvious masses evident. OSSEOUS: No fractures and no significant osseous lesions. IMPRESSION: 1. Previous cholecystectomy, appendectomy, and hysterectomy. No evidence of bowel obstruction, free air, nor abscess. No ascites. 2. Sigmoid diverticulosis without evidence of obvious acute diverticulitis. 3. Slight prominence of the left ureter diameter throughout its length but without obvious radiopaque calculus seen within the lower left ureter nor within the urinary bladder lumen. RADIATION DOSE DELIVERED: 828mGy.cm Total DLP DATA REPOSITORY: All CT scans at this facility are submitted to the National Radiology Data Registry (NRDR) Dose Index Registry (DIR) with the [employer] (ACR). RADIATION OPTIMIZATION: All CT scans at this facility use at least one of these dose optimization te chniques: automated exposure control; mA and/or kV adjustment per patient size (includes targeted exa ms where dose is matched to clinical indication); or iterative reconstruction.
[2024-01-14 05:00] LABS: Abs Immature Grans 0.02 10^3/uL (0.0-0.06); Absolute Basophil Count 0.06 10^3/uL (0.0-0.2); Absolute Eosinophil Count 0.17 10^3/uL (0.0-0.7); Absolute Lymphocyte Count 1.52 10^3/uL (1.2-3.4); Absolute Monocyte Count 0.66 10^3/uL (0.1-0.8); Absolute Neutrophil Count 5.05 10^3/uL (1.2-6.7); Basophils % 0.8 %; Eosinophils % 2.3 %; HCT 37.7 % (36.0-46.0); HGB 12.3 g/dL (11.2-15.7); Immature Grans % 0.3 %; Lymphocytes % 20.3 %; MCH 26.8 pg (27.0-33.0); MCHC 32.6 % (32.0-36.0); MCV 82 fL (80-95); MPV 9.1 fL (8.0-11.0); Monocytes % 8.8 %; Neutrophils % 67.5 %; Platelet Count 213 10^3/uL (130-400); RBC 4.59 10^6/uL (3.93-5.22); RDW 13.8 % (11.7-14.6); RDW-SD 41.1 fL; WBC 7.48 10^3/uL (4.4-10.8)
[2024-01-14] MEDS: ACETAMINOPHEN 1,000 MG/100 ML BTL 400 MG IVPB (05:27)
[2024-01-14 05:29] LABS: ALT 20 U/L (14-59); AST 18 U/L (15-37); Albumin 3.9 g/dL (3.4-5.0); Alkaline Phosphatase 97 U/L (46-116); Anion Gap 6.4 mmol/L (3-11); BUN 6 mg/dL (7-18); Bilirubin, Total 0.78 mg/dL (0.2-1.0); CO2 30.6 mmol/L (21.0-32.0); CREATININE 0.7 mg/dL (0.55-1.02); Calcium 9.2 mg/dL (8.5-10.1); Chloride 102 mmol/L (98-107); Glucose 111 mg/dL (74-106); Lipase 20 U/L (16-77); Potassium 3.3 mmol/L (3.5-5.1); Sodium 139 mmol/L (136-145); Total Protein 7.4 g/dL (6.4-8.2)
[2024-01-14] MEDS: Omnipaque 350 MG/ML 100 ML BTL IJ (05:41)
[2024-01-14] MEDS: Normal Saline - Diluent 50 ML VIAL IJ (05:45)
[2024-01-14] MEDS: Normal Saline Flush 10 ML SYR IVP (05:45)
--- NOTE | 2024-01-14 07:03 | DI.VRAD_ITS ---
PROCEDURE INFORMATION: Exam: CT Abdomen And Pelvis With Contrast Exam date and time: 01/14/2024 5:49 AM Age: 73 years old Clinical indication: Abdominal pain; Localized; Left lower quadrant (llq); Prior surgery; Surgery date: 6+ months; Surgery type: Hysterectomy, cholecystectomy, appendectomy; Patient HX: Llq pain, tenderness; Additional info: PT states constipated TECHNIQUE: Imaging protocol: Computed tomography of the abdomen and pelvis with contrast. Radiation optimization: All CT scans at this facility use at least one of these dose optimization techniques: automated exposure control; mA and/or kV adjustment per patient size (includes targeted exams where dose is matched to clinical indication); or iterative reconstruction. Contrast material: OMNIPAQUE 350; Contrast volume: 100 ml; Contrast route: INTRAVENOUS (IV); COMPARISON: CT ABDOMEN PELVIS W 07/10/2023 11:04 AM FINDINGS: Lungs: Visualized lung bases are clear. No pleural effusions. Liver: Mild hepatic steatosis with a small focus of subcapsular fatty infiltration adjacent to the falciform ligament. Gallbladder and biliary ducts: The gallbladder is again noted to be surgically absent. There is no intrahepatic or extrahepatic biliary ductal dilation. Pancreas: Moderately atrophic. No acute abnormality. Spleen: Unremarkable. The spleen is normal in size. Adrenal glands: Unremarkable. Kidneys and ureters: No hydronephrosis or hydroureter. Stable 1.8 cm minimally complex cortical cyst in the upper pole of the left kidney which contains a small focus of eccentric calcification. Two tiny nonobstructing calculi in the lower pole of the right kidney. Stomach and bowel: The stomach is nondilated. The small and large bowel are normal in caliber. There is liquid stool with air-fluid levels throughout the colon. There are scattered diverticula throughout the descending and sigmoid colon without focal pericolonic inflammatory changes to suggest diverticulitis. Appendix: Surgically absent by report. Intraperitoneal space: Unremarkable. No ascites, fluid collection, or pneumoperitoneum. Retroperitoneal space: Unremarkable. No retroperitoneal collection or mass. Vasculature: Mild atherosclerotic vascular calcifications. Normal caliber abdominal aorta. Lymph nodes: No pathologically enlarged lymph nodes. Urinary bladder: Unremarkable. Reproductive: Status post hysterectomy. No suspicious pelvic masses. Bones/joints: Degenerative changes. No suspicious osseous lesions. Soft tissues: Unremarkable. IMPRESSION: 1. Liquid stool and air-fluid levels throughout the colon. This could be due to laxative effect. 2. Colonic diverticulosis without evidence of diverticulitis. 3. Additional stable chronic and incidental findings are discussed in the body of the report. Dictated and Authenticated by: Edie Pena MD. Ordering:TARYN Knowles MD
[2024-01-14 07:42] LABS: Bilirubin Negative (Negative); Blood Negative (Negative); Clarity Clear (Clear); Glucose Negative (Negative); Ketones Negative (Negative); Leukocyte Esterase Negative (Negative); Nitrite Negative (Negative); Specific Gravity 1.015 (1.005-1.025); Urobilinogen 0.2 mg/dL (Up to 0.2); pH 7.5 (5-8)
== END 2024-01-14 08:45 | disposition home or self-care (01) ==
PROVIDERS: Emergency Provider Emergency Medicine
DX: R10.32 Left lower quadrant pain (principal); J44.9 Chronic obstructive pulmonary disease, unspecified; E11.9 Type 2 diabetes mellitus without complications; I10 Essential (primary) hypertension; Z90.49 Acquired absence of other specified parts of digestive tract; Z90.710 Acquired absence of both cervix and uterus; Z79.84 Long term (current) use of oral hypoglycemic drugs
CPT/HCPCS: 80053; 83690; 96361; 96374; 99285; 74177; 81003; 85025; 99284; J0131; J3490

== ENCOUNTER 2024-01-16 17:44 | Emergency (ER) | payer MEDICARE, MEDICAID, SELFPAY ==
[2024-01-16] VITALS (27 sets, daily range): BP systolic 139–232; BP diastolic 84–164; PULSE 44–89; RESP 18; TEMP 36.4–37; O2SAT 95–98
--- NOTE | 2024-01-16 19:45 | ED.GENADUL_ITS ---
Discharge Plan Disposition Patient Disposition: Home Condition: Stable Discharge Details Clinical Impression: Abdominal pain, Enteritis, Gastritis Primary Care Provider: Unknown,Unknown ED Provider: Soheila Potts Home Meds and New Rx's Prescriptions: New polyethylene glycol 3350 [Miralax] 17 gram/dose powder 17 g PO DAILY 7 Days Qty: 119 0RF No Action quetiapine 100 mg tablet 150 mg PO HS (DME) 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 See Rx Instructions .ROUTE .MEDSUPPLY Qty: 1 0RF Rx Instructions: As directed glyburide-metformin 5-500 mg tablet 1 tab PO BID pantoprazole 40 MG tablet,delayed release (DR/EC) 40 mg PO DAILY budesonide-formoterol [Symbicort] 160-4.5 mcg/actuation HFA aerosol inhaler 1 puff INHALATION BID Patient Comments: INHALE 1 PUFF BY MOUTH TWO TIMES A DAY Spiriva Respimat 1.25 mcg/actuation mist 2 puff INHALATION DAILY Patient Comments: INHALE TWO PUFFS BY MOUTH EVERY DAY cetirizine [24Hour Allergy] 10 mg tablet 10 mg PO DAILY PRN ferrous gluconate 324 mg (37.5 mg iron) tablet 324 mg PO DAILY Patient Comments: TAKE ONE TABLET BY MOUTH EVERY DAY Saccharomyces boulardii [Florastor] 250 mg capsule 250 mg PO BID Qty: 20 0RF simvastatin 40 MG tablet 40 mg PO HS calcium carbonate-vitamin D3 1 EACH tablet 1 ea PO BID magnesium oxide 400 mg magnesium Capsule 400 mg PO BID losartan 50 mg tablet 25 mg PO DAILY Patient Comments: TAKE ONE TABLET BY MOUTH EVERY DAY propranolol 40 mg tablet 40 mg PO BID Patient Comments: TAKE ONE TABLET BY MOUTH TWICE A DAY albuterol sulfate 90 mcg/actuation aerosol powdr breath activated 2 inh inhalation Q4H PRNQty: 1 0RF Discharge Instructions Instructions: Viral gastroenteritis in adults, Abdominal Pain, Adult ED Additional Instructions: Please follow-up with your primary care provider. In the meantime, take your medication as prescribed and return to the Emergency Department with any worsening symptoms or any other concerns. HPI General Date/Time Provider Initiated Documentation: 01/16/24 18:51 . HPI Narrative: The patient is a 73-year-old female with a history of anemia, constipation who comes the emergency department for constipation. Reports it has been 2 days since she was last able to have a normal bowel movement. Reports she has been taking [id number] constipation relief without improvement. Reports while waiting in the emergency department she was able to pass a small amount of stool but not enough. Reports during this time she has had lower abdominal pain. Reports this at 7/10 in intensity. Patient cannot further characterize the discomfort however. Denies exacerbating or relieving factor. Denies any nausea or vomiting and admits to normal appetite. Denies any fevers or chills. Denies chest pain or shortness of breath. Denies urinary symptoms. Related Data Home Medications ?Medication ?Instructions ?Recorded ?Confirmed pantoprazole 40 mg tablet,delayed 40 mg PO DAILY 02/20/13 01/16/24 release calcium carbonate 600 mg-vitamin 1 ea PO BID 10/10/17 01/16/24 D3 10 mcg (400 unit) tablet simvastatin 40 mg tablet 40 mg PO HS 10/10/17 01/16/24 magnesium oxide 400 mg PO BID 07/23/19 01/16/24 quetiapine 100 mg tablet 150 mg PO HS 10/18/20 01/16/24 inhalational spacing device #1 ea 06/17/21 01/14/24 (Aerochamber MV spacer) albuterol sulfate 90 mcg/actuation 2 inh inhalation Q4H PRN #1 ea 08/22/21 01/16/24 breath activated powder inhaler propranolol 40 mg tablet 40 mg PO BID 08/22/21 01/16/24 losartan 50 mg tablet 25 mg PO DAILY 12/12/22 01/16/24 glyburide 5 mg-metformin 500 mg 1 tab PO BID 02/01/23 01/16/24 tablet Saccharomyces boulardii 250 mg 250 mg PO BID #20 caps 07/10/23 01/16/24 capsule (Florastor) budesonide-formoterol HFA 160 1 puff inhalation BID 07/10/23 01/16/24 mcg-4.5 mcg/actuation aerosol inhaler (Symbicort) cetirizine 10 mg tablet (24Hour 10 mg PO DAILY PRN 07/10/23 01/16/24 Allergy) ferrous gluconate 324 mg (37.5 mg 324 mg PO DAILY 07/10/23 01/16/24 iron) tablet tiotropium bromide 1.25 2 puff inhalation DAILY 01/09/24 07/17/24 mcg/actuation mist for inhalation (Spiriva Respimat) polyethylene glycol 3350 17 17 g PO DAILY 7 days #119 grams 01/16/24 gram/dose oral powder (Miralax) Previous Rx's ?Medication ?Instructions ?Recorded inhalational spacing device #1 ea 06/17/21 (Aerochamber MV spacer) albuterol sulfate 90 mcg/actuation 2 inh inhalation Q4H PRN #1 ea 08/22/21 breath activated powder inhaler Saccharomyces boulardii 250 mg 250 mg PO BID #20 caps 07/10/23 capsule (Florastor) polyethylene glycol 3350 17 17 g PO DAILY 7 days #119 grams 01/16/24 gram/dose oral powder (Miralax) Allergies Allergy/AdvReac Type Severity Reaction Status Date / Time thiopental sodium (From Allergy Skin Rash Unverified 01/16/24 17:28 Pentothal) General Stated Complaint: Abd Prob LYNNETTE: 3 Review of Systems Narrative: Review of systems are negative except as mentioned. Exam Narrative Exam Narrative: The patient is in no acute distress. Oral mucosal membranes are moist. Heart is regular in rate and rhythm. Lungs are clear to auscultation. No CVA tenderness is noted to palpation bilaterally. Patient has suprapubic tenderness to palpation without rebound tenderness, guarding or rigidity. Patient has normal bowel sounds throughout. Skin is warm and dry. Course Vital Signs Vital signs: Vital Signs Temperature 36.4 C 01/16/24 17:24 Pulse 81 01/16/24 17:24 Respiratory Rate 18 01/16/24 17:24 Blood Pressure 158/84 H 01/16/24 17:24 Pulse Oximetry 97 01/16/24 17:24 Temperature 37.0 C 01/16/24 19:42 Temperature Source Skin 01/16/24 19:42 Pulse 89 01/16/24 19:42 Respiratory Rate 18 01/16/24 19:42 Respiratory Effort Normal, Non-Labored 01/16/24 19:30 Blood Pressure 142/107 H 01/16/24 19:42 Blood Pressure Mean 118 01/16/24 19:42 Blood Pressure Position Sitting 01/16/24 19:42 Pulse Oximetry 97 01/16/24 19:42 Oxygen Delivery Method Room Air 01/16/24 19:42 Oxygen Flow Rate 0 01/16/24 19:42 Pain Level 7 01/16/24 19:42 Medical Decision Making Patient denies any rectal discomfort or rectal pain or sensation of stool that she cannot push through in her anus. For this reason I will not be performing a digital rectal exam. She does have abdominal tenderness on exam. I told the patient of plan therefore of further workup apart from just physical exam including blood work and imaging studies to which she agreed. The patient's blood work and urinalysis are back and they are unremarkable. CAT scan is resulted as well and she has changes concerning for enteritis and gastritis. There is no evidence of bowel obstruction. There is no evidence of diverticulitis. There is also no evidence of a large stool burden. For this reason she does not need an enema. I have since updated the patient on workup result and plan for discharge. The patient says that her only problem is that she can't shit and needs help with this. I will send a prescription for MiraLAX to her preferred pharmacy for the next few days. She is also encouraged to follow-up with her primary care doctor but urged to return to the emergency department with any worsening symptoms or any other concerns. Imaging Data Radiologic Study: Imaging: CT Scan (CT of the abdomen and pelvis with IV contrast) Radiologist's impression: 1. There is fluid-filled loops of small bowel with air-fluid levels. No significant bowel wall thickening or inflammatory changes. No evidence of obstruction. Consider early enteritis. 2. The stomach wall is mildly thickened and there is enhancement of the mucosa. Consider gastritis. 3. Hepatic steatosis. Quality:SDOH Health Related Social Needs: Health related social needs transpo insecurity Health related social needs details pt with developmen luis delay, lives alone, unable to comprehend difficult medical concepts, limited reading. PFSH All Active Problems (Updated 01/16/24 @ 22:12 by Soheila Potts DO) Gastritis (Acute) Enteritis (Acute) Abdominal pain (Acute) Abdominal pain (Acute) Social isolation (Acute) Goals of care, counseling/discussion (Acute) Carpal tunnel syndrome (Acute) Urinary, incontinence, stress female (Acute 04/02/13) Hair loss (Acute) Lives alone with help available (Acute) NO DPOA yet; ? state guardian?-pt. confirmed no on both as of 02/21/23 CHI (closed head injury) (Acute) Polypharmacy (Acute) At increased risk for social isolation (Acute) Low energy (Acute) Advance care planning (Acute) Impaired instrumental activities of daily living (Acute) Palliative care patient (Acute) Anemia (Chronic) Diverticulosis (Acute) Learning disability (Chronic) manages her own medications DNR (do not resuscitate) (Chronic) DNI (do not intubate) (Chronic) Constipation (Chronic) takes lactulose to tx Financial difficulties (Chronic) Illiterate (Chronic) able to manage independently Abnormal CT scan (Acute) Family history of colon cancer (Acute) Diarrhea (Acute) Hypochromic microcytic anemia (Acute) Cough (Acute) Knee pain (Acute) Fatigue (Acute) Medical History COPD (chronic obstructive pulmonary disease) Learning disability Chronic low back pain GERD (gastroesophageal reflux disease) Sleep disorder Anxiety Vertigo Onychomycosis Eczema Benign essential tremor Diabetes mellitus HTN (hypertension) Neoplasm of skin (12/29/13) Hyperlipidemia (04/02/13) Depression (04/02/13) Restless legs takes Premapaxil Surgical History H/O arthroscopy of left knee (~01/2007) History of colonoscopy (~02/22/23) Oophrectomy, Both (04/09/13) laparotomy. aoc and kk. Abdominal hysterectomy (~1979) for heavy bleeding. Cholecystectomy laparoscopic 03/2011 Extraction of cataract in [place] Arthroplasty of knee L knee Dr Fuentes bladder suspension for incontinence Family History Sister Heart disease Son Parent-child estrangement nec Under care of senior care service life sentence for murder Daughter Parent-child estrangement nec Substance abuse Social History Smoking/Tobacco Use Status: Never Smoking risk assessment performed?: Yes Alcohol Intake: former Drug use: Never Substance use type: does not use Caregiver/Support person: No Household members: none Housing: apartment Number of Children: 0 Communication Needs: Cannot Read Education Level: middle school Details: finished 6th grade only Do you need help understanding health information?: Always current occupation: always disabled; worked as [employer] for 5 years in her late teens, early 20s Pets and animals: No Current gender identity: female What is your relationship status?: How often do you talk on the phone with friends or family?: never How often do you get together with friends or relatives?: never Panel score (0-1 are the most socially isolated patients): 0 What type of physical activity do you participate in: walking and irregular exercise Duration: < 15 minutes/day Frequency: 1-2 times per week Special pankaj needs: No Agree to transfusion: Yes Seatbelt use: always Drive intox or ride w/intox hydraulic lift driver: No Water heater temp set <120 deg: Yes Working smoke detector in home: Yes Firearms in home: No Do you feel safe at home: Yes Do you feel safe in your relationship?: Yes Additional Social history: Lives at [facility], per pt.
[2024-01-16 19:56] LABS: Abs Immature Grans 0.02 10^3/uL (0.0-0.06); Absolute Basophil Count 0.06 10^3/uL (0.0-0.2); Absolute Eosinophil Count 0.18 10^3/uL (0.0-0.7); Absolute Monocyte Count 0.62 10^3/uL (0.1-0.8); Absolute Neutrophil Count 5.59 10^3/uL (1.2-6.7); Basophils % 0.7 %; Eosinophils % 2.2 %; HCT 39.2 % (36.0-46.0); HGB 12.6 g/dL (11.2-15.7); Immature Grans % 0.2 %; Lymphocytes % 20.8 %; MCH 26.6 pg (27.0-33.0); MCHC 32.1 % (32.0-36.0); MCV 83 fL (80-95); MPV 9.1 fL (8.0-11.0); Monocytes % 7.6 %; Neutrophils % 68.5 %; Platelet Count 216 10^3/uL (130-400); RBC 4.73 10^6/uL (3.93-5.22); RDW 13.8 % (11.7-14.6); RDW-SD 41.5 fL; WBC 8.17 10^3/uL (4.4-10.8)
[2024-01-16 20:09] LABS: ALT 23 U/L (14-59); AST 15 U/L (15-37); Alkaline Phosphatase 103 U/L (46-116); Anion Gap 7.9 mmol/L (3-11); BUN 13 mg/dL (7-18); Bilirubin, Total 0.47 mg/dL (0.2-1.0); CO2 28.1 mmol/L (21.0-32.0); CREATININE 0.7 mg/dL (0.55-1.02); Calcium 9.2 mg/dL (8.5-10.1); Chloride 104 mmol/L (98-107); Glucose 113 mg/dL (74-106); Lipase 15 U/L (16-77); Potassium 3.9 mmol/L (3.5-5.1); Sodium 140 mmol/L (136-145); Total Protein 7.6 g/dL (6.4-8.2)
--- NOTE | 2024-01-16 20:30 | DI.CT_ITS ---
Exam(s) CT ABDOMEN PELVIS W EXAM: CT ABDOMEN PELVIS W CLINICAL HISTORY: lower abdominal pain. TECHNIQUE: Imaging Protocol: Axial computed tomography images with coronal and sagittal reformatted images were created and reviewed CONTRAST MATERIAL: Intravenous: Omnipaque-350 100cc Oral: None COMPARISON: CT CT ABDOMEN PELVIS W from 01/14/2024 FINDINGS: VISUALIZED LUNG BASES: No nodules nor pleural effusions evident. ABDOMEN: Again noted is evidence of previous cholecystectomy, appendectomy, and hysterectomy. No evidence of bowel obstruction, free air, nor abscess. No evidence of ascites. LIVER: There are no significant focal hepatic lesions evident. Fatty changes in the medial aspect of the right hepatic lobe adjacent to the inter lobar fissure again noted. No dilated intrahepatic catrachita ts. GALLBLADDER/BILIARY: Gallbladder is again noted be surgically absent. CBD is not dilated. PANCREAS: No evidence of pancreatic mass nor dilatation of the pancreatic duct. SPLEEN: Spleen is not enlarged. No obvious intrasplenic lesions. Splenic and portal veins are paten t. ADRENALS: There are no significant adrenal masses. KIDNEYS:There is again noted a peripherally partially calcified cyst in the upper pole the left kidne y, unchanged. Also another benign smaller exophytic cyst off the lateral cortex of the left kidney i s unchanged and does not require further investigation. Tiny punctate calculus in lower pole calyx o f the right kidney is noted. There is no evidence of hydronephrosis nor hydroureter. No obvious mas ses nor radiopaque calculi seen in the urinary bladder.. ABDOMINAL AORTA: Abdominal aorta is calcified but not enlarged. LYMPH NODES:There is no retroperitoneal nor paraaortic adenopathy. ABDOMINAL WALL: No evidence of significant anterior abdominal wall nor inguinal hernia. GI: There are few fluid-filled minimally prominent small bowel loops with maximum diameter 2.5 cm. P robable mild Deily S. no bowel obstruction evident. No occlusion of the SMA. Celiac patent. SUPRIYA is also patent. There is no evidence of bowel obstruction, free air, nor abscess. PELVIS: GI: No evidence of appendicitis.No evidence of sigmoid diverticulitis. LYMPH NODES: There is no intrapelvic nor inguinal adenopathy. REPRODUCTIVE: Uterus is surgically absent. There are no abnormal adnexal masses. URINARY BLADDER: No calculi nor obvious masses evident OSSEOUS: No fractures and no significant osseous lesions. IMPRESSION: 1. Mild ileus pattern. No obvious bowel obstruction. No ascites. 2. Again noted is evidence of previous cholecystectomy, appendectomy, and hysterectomy. RADIATION DOSE DELIVERED: Total DLP DATA REPOSITORY: All CT scans at this facility are submitted to the National Radiology Data Registry (NRDR) Dose Index Registry (DIR) with the [employer] (ACR). RADIATION OPTIMIZATION: All CT scans at this facility use at least one of these dose optimization te chniques: automated exposure control; mA and/or kV adjustment per patient size (includes targeted exa ms where dose is matched to clinical indication); or iterative reconstruction.
[2024-01-16 20:34] LABS: Bilirubin Negative (Negative); Blood Negative (Negative); Clarity Clear (Clear); Glucose Negative (Negative); Ketones Negative (Negative); Leukocyte Esterase Small (Negative); Nitrite Negative (Negative); Specific Gravity 1.015 (1.005-1.025); Urobilinogen 0.2 mg/dL (Up to 0.2)
[2024-01-16 20:44] LABS: Bacteria Negative HPF (Negative); C & S Indicated? No; Crystals Negative HPF (Negative); Epithelial Cells Rare HPF (Negative); Mucus Negative (Negative); Other Cells Rare Renal (Negative); RBC 0-2 HPF (0-2)
[2024-01-16] MEDS: Omnipaque 350 MG/ML 100 ML BTL IJ (21:27)
[2024-01-16] MEDS: Normal Saline - Diluent 50 ML VIAL IJ (21:27)
--- NOTE | 2024-01-16 21:59 | DI.VRAD_ITS ---
PROCEDURE INFORMATION: Exam: CT Abdomen And Pelvis With Contrast Exam date and time: 01/16/2024 9:16 PM Age: 73 years old Clinical indication: Abdominal pain; Additional info: Lower abdominal pain TECHNIQUE: Imaging protocol: Computed tomography of the abdomen and pelvis with contrast. Contrast material: OMNI 350; Contrast volume: 100 ml; Contrast route: INTRAVENOUS (IV); COMPARISON: CT ABDOMEN PELVIS W 01/14/2024 5:49 AM FINDINGS: Lungs: The lungs are normal. Pleural spaces: There is no evidence of pneumothorax. There are no pleural effusions present. Heart: The cardiac structures are normal. Coronary arteries: There is mild atherosclerotic calcification of the coronary arteries. Liver: There is a diffuse decrease in hepatic parenchymal density, consistent with mild fatty infiltration. There is no evidence of intrahepatic or extrahepatic biliary ductal dilation. Gallbladder and biliary ducts: There has been a cholecystectomy. Pancreas: There is moderate pancreatic atrophy and fatty replacement. Spleen: The spleen is normal. Adrenal glands: Normal. No mass. Kidneys and ureters: Bosniak type 2 cysts present within the upper pole of the left kidney with small amount of calcification and irregularity. There are 2 cysts present within the left kidney the largest measures approximately 18 mm in diameter. There is a tiny cyst representing a Bosniak type 1 cyst. Left kidney is otherwise normal. The right kidney is normal. The ureters and bladder are normal. Stomach and bowel: There is mild increased colonic fecal content. The colon is nondilated. These findings suggest a mild degree of constipation. Clinical correlation recommended. There are fluid-filled loops of small bowel with air-fluid levels. No significant bowel wall thickening or inflammatory changes. No evidence of obstruction. Consider early enteritis. The stomach wall is mildly thickened and there is enhancement of the mucosa. Consider gastritis. Mild diverticulosis is present in the sigmoid and descending colon.There is no evidence of diverticulitis. Appendix: There is no evidence of appendicitis. Intraperitoneal space: No free air. No significant fluid collection. Vasculature: The aorta demonstrates mild atherosclerotic calcification. The arterial peripheral vasculature demonstrates diffuse mild atherosclerotic calcification. The inferior venacava appears normal.The portal, mesenteric and splenic veins are patent. Lymph nodes: No enlarged lymph nodes. Urinary bladder: The bladder is normal. Reproductive: There has been a hysterectomy. No adnexal cysts or masses are identified. Bones/joints: The lumbar spine demonstrates moderate degenerative changes. The skeletal structures and soft tissues show no evidence of fracture or other acute processes. There are moderate degenerative changes of the hip joints. Soft tissues: The extra-abdominal soft tissues are normal. IMPRESSION: 1. There are fluid-filled loops of small bowel with air-fluid levels. No significant bowel wall thickening or inflammatory changes. No evidence of obstruction. Consider early enteritis. 2. The stomach wall is mildly thickened and there is enhancement of the mucosa. Consider gastritis. 3. Hepatic steatosis Dictated and Authenticated by: Jayson Quinn MD. Ordering:HAZEL Parnell MD
== END 2024-01-16 23:12 | disposition home or self-care (01) ==
PROVIDERS: Emergency Provider Emergency Medicine
DX: R10.30 Lower abdominal pain, unspecified (principal); K29.70 Gastritis, unspecified, without bleeding; K52.9 Noninfective gastroenteritis and colitis, unspecified
CPT/HCPCS: 36415; 80053; 83690; 99285; 74177; 81003; 81015; 85025; 99283; J3490

== ENCOUNTER 2024-01-17 10:41 | Emergency (ER) | payer MEDICARE, MEDICAID, SELFPAY ==
[2024-01-17 10:49] VITALS: BP 172/68; PULSE 82; RESP 16; TEMP 37.1; O2SAT 98
--- NOTE | 2024-01-17 11:08 | ED.GENADUL_ITS ---
Discharge Plan Disposition Patient Disposition: Home Condition: Stable Discharge Details Clinical Impression: Constipation, Enteritis Primary Care Provider: Unknown,Unknown ED Provider: Katie Rabago Home Meds and New Rx's Prescriptions: Continued quetiapine 100 mg tablet 150 mg PO HS (DME) 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 See Rx Instructions .ROUTE .MEDSUPPLY Qty: 1 0RF Rx Instructions: As directed glyburide-metformin 5-500 mg tablet 1 tab PO BID pantoprazole 40 MG tablet,delayed release (DR/EC) 40 mg PO DAILY budesonide-formoterol [Symbicort] 160-4.5 mcg/actuation HFA aerosol inhaler 1 puff INHALATION BID Patient Comments: INHALE 1 PUFF BY MOUTH TWO TIMES A DAY Spiriva Respimat 1.25 mcg/actuation mist 2 puff INHALATION DAILY Patient Comments: INHALE TWO PUFFS BY MOUTH EVERY DAY cetirizine [24Hour Allergy] 10 mg tablet 10 mg PO DAILY PRN ferrous gluconate 324 mg (37.5 mg iron) tablet 324 mg PO DAILY Patient Comments: TAKE ONE TABLET BY MOUTH EVERY DAY Saccharomyces boulardii [Florastor] 250 mg capsule 250 mg PO BID Qty: 20 0RF polyethylene glycol 3350 [Miralax] 17 gram/dose powder 17 g PO DAILY 7 Days Qty: 119 0RF simvastatin 40 MG tablet 40 mg PO HS calcium carbonate-vitamin D3 1 EACH tablet 1 ea PO BID magnesium oxide 400 mg magnesium Capsule 400 mg PO BID losartan 50 mg tablet 25 mg PO DAILY Patient Comments: TAKE ONE TABLET BY MOUTH EVERY DAY propranolol 40 mg tablet 40 mg PO BID Patient Comments: TAKE ONE TABLET BY MOUTH TWICE A DAY albuterol sulfate 90 mcg/actuation aerosol powdr breath activated 2 inh inhalation Q4H PRNQty: 1 0RF Discharge Instructions Instructions: Viral gastroenteritis in adults, Constipation, Adult ED Additional Instructions: Please increase oral fluids. Drink lots of water. You may try prunes or warm prune juice. Please follow-up with your primary care provider for further evaluation and treatment. Take MiraLAX as previously prescribed which is a gentle laxative. You may take the remainder of the magnesium citrate when you get home this should produce a bowel movement in the next 24 to 48 hours. Follow up with primary care provider in 3-5 days. Return to ED sooner if any worsening abdominal pain, fever, vomiting, chest pain, shortness of breath. Referrals: Primary Care Provider [Outside] - 3 days Discharge Data Discharge Date/Time-TO BE ENTERED AT DEPARTURE: 01/17/24 12:55 HPI General Mode of arrival: ambulatory . Date/Time Provider Initiated Documentation: 01/17/24 10:55 . Limitations to Documentation: no limitations . Information obtained by: patient, RN notes reviewed and old records reviewed . HPI Narrative: 33-year-old female presents to the ER with a chief complaint of constipation. Per pavilion cutter note she reports she has not had a bowel movement in 3 days however she does tell me that it has been 2 weeks since her last bowel movement. She was seen here yesterday had a CT which showed some enteritis versus gastroenteritis some mild stool burden noted on the CT imaging. Patient denies any abdominal pain fever chills problems urinating or any other associated symptoms. She was unable to fill the MiraLAX prescription which was prescribed to her yesterday. She reports that she is been taking stool softeners at home and a pill form with little to no relief. Related Data Home Medications ?Medication ?Instructions ?Recorded ?Confirmed pantoprazole 40 mg tablet,delayed 40 mg PO DAILY 02/20/13 01/17/24 release calcium carbonate 600 mg-vitamin 1 ea PO BID 10/10/17 01/17/24 D3 10 mcg (400 unit) tablet simvastatin 40 mg tablet 40 mg PO HS 10/10/17 01/17/24 magnesium oxide 400 mg PO BID 07/23/19 01/17/24 quetiapine 100 mg tablet 150 mg PO HS 10/18/20 01/17/24 inhalational spacing device #1 ea 06/17/21 01/17/24 (Aerochamber MV spacer) albuterol sulfate 90 mcg/actuation 2 inh inhalation Q4H PRN #1 ea 08/22/21 01/17/24 breath activated powder inhaler propranolol 40 mg tablet 40 mg PO BID 08/22/21 01/17/24 losartan 50 mg tablet 25 mg PO DAILY 12/12/22 01/17/24 glyburide 5 mg-metformin 500 mg 1 tab PO BID 02/01/23 01/17/24 tablet Saccharomyces boulardii 250 mg 250 mg PO BID #20 caps 07/10/23 01/17/24 capsule (Florastor) budesonide-formoterol HFA 160 1 puff inhalation BID 07/10/23 01/17/24 mcg-4.5 mcg/actuation aerosol inhaler (Symbicort) cetirizine 10 mg tablet (24Hour 10 mg PO DAILY PRN 07/10/23 01/17/24 Allergy) ferrous gluconate 324 mg (37.5 mg 324 mg PO DAILY 07/10/23 01/17/24 iron) tablet tiotropium bromide 1.25 2 puff inhalation DAILY 07/10/23 01/17/24 mcg/actuation mist for inhalation (Spiriva Respimat) polyethylene glycol 3350 17 17 g PO DAILY 7 days #119 grams 01/16/24 01/17/24 gram/dose oral powder (Miralax) Previous Rx's ?Medication ?Instructions ?Recorded inhalational spacing device #1 ea 06/17/21 (Aerochamber MV spacer) albuterol sulfate 90 mcg/actuation 2 inh inhalation Q4H PRN #1 ea 08/22/21 breath activated powder inhaler Saccharomyces boulardii 250 mg 250 mg PO BID #20 caps 07/10/23 capsule (Florastor) polyethylene glycol 3350 17 17 g PO DAILY 7 days #119 grams 01/16/24 gram/dose oral powder (Miralax) Allergies Allergy/AdvReac Type Severity Reaction Status Date / Time thiopental sodium (From Allergy Skin Rash Unverified 01/17/24 10:55 Pentothal) General Stated Complaint: Abd Prob LYNNETTE: 4 Review of Systems All systems reviewed & are unremarkable except as noted in HPI and below Gastrointestinal Gastrointestinal: Denies abdominal pain, Reports bloating, Reports change in bowel habits, Reports constipation, Denies nausea and Denies vomiting Exam Narrative Exam Narrative: Constitutional: Alert and oriented x3, at baseline. Appears stated age. Well- nourished body habitus. Slightly disheveled. Head: Normocephalic, no trauma. Eyes: Pupils PERRL, Red reflex noted, EOM's intact. Eyelids symmetrical without lesions, discharge, or swelling. ENT: Bilateral TM's WNL, External ear normal to inspection, no mastoid TTP, swelling, or erythema, Nasal turbinates WNL, no nasal discharge. Normal dentition, Posterior pharynx WNL, no exudate. Chest: RRR, Normal S1, S2, distal pulses intact. Resp: Lungs clear to auscultation bilaterally, no wheezes, rales, or rhonchi. Abdomen: Soft, non-distended, Normoactive bowel sounds all 4 quads. Musculoskeletal: Normal gait, Moves all 4 extremities without difficulty. Skin: No suspicious rashes or lesions. Capillary refill less than 2 sec. Neurologic: Cranial nerves II-XII intact. Alert and oriented x 3. Motor: No deficits noted. Sensory: Intact bilaterally all 4 extremities. Hematologic/Lymphatic: No ecchymosis, no lymphadenopathy. Course Vital Signs Vital signs: Vital Signs Temperature 37.1 C 01/17/24 10:49 Pulse 82 01/17/24 10:49 Respiratory Rate 16 01/17/24 10:49 Blood Pressure 172/68 H 01/17/24 10:49 Pulse Oximetry 98 01/17/24 10:49 Temperature 37.1 C 01/17/24 10:49 Pulse 82 01/17/24 10:49 Respiratory Rate 16 01/17/24 10:49 Respiratory Effort Normal 01/17/24 10:54 Blood Pressure 172/68 H 01/17/24 10:49 Pulse Oximetry 98 01/17/24 10:49 Pain Level 0 01/17/24 10:49 Medical Decision Making 33-year-old female presents to the ER with a chief complaint of constipation. Per pavilion cutter note she reports she has not had a bowel movement in 3 days ho wever she does tell me that it has been 2 weeks since her last bowel movement. She was seen here yesterday had a CT which showed some enteritis versus gastroenteritis some mild stool burden noted on the CT imaging. Patient denies any abdominal pain fever chills problems urinating or any other associated symptoms. She was unable to fill the MiraLAX prescription which was prescribed to her yesterday. She reports that she is been taking stool softeners at home and a pill form with little to no relief. At this time soapsuds enema ordered, will consider giving MiraLAX here in the department or mag citrate if no success with soapsuds enema. Due to no complaint of abdominal pain, fever nausea or any other associated symptoms and recent visit additional workup deferred at this time. Informed by medical staff physician that no significant results from initial soapsuds enema. MiraLAX ordered here p.o. in the department. Patient states she feels better and wants to be discharged, patient given magnes ium citrate half here in department and half at home to produce BM, stressed the importance of follow-up with PCP and strict return instructions. Patient remained hemodynamically stable throughout remainder of stay. Medical Records Medical records reviewed: Yes I reviewed the patient's medical records. Medical records narrative: Reviewed chart from the and CT results. No leukocytosis. Quality:SDOH Health Related Social Needs: Health related social needs transpo insecurity Health related social needs details pt with developmen luis delay, lives alone, unable to comprehend difficult medical concepts, limited reading. PFSH All Active Problems (Updated 01/17/24 @ 12:47 by Katie Rabago NP) Constipation (Acute) Gastritis (Acute) Enteritis (Acute) Abdominal pain (Acute) Abdominal pain (Acute) Social isolation (Acute) Goals of care, counseling/discussion (Acute) Carpal tunnel syndrome (Acute) Urinary, incontinence, stress female (Acute 04/02/13) Hair loss (Acute) Lives alone with help available (Acute) NO DPOA yet; ? state guardian?-pt. confirmed no on both as of 02/21/23 CHI (closed head injury) (Acute) Polypharmacy (Acute) At increased risk for social isolation (Acute) Low energy (Acute) Advance care planning (Acute) Impaired instrumental activities of daily living (Acute) Palliative care patient (Acute) Anemia (Chronic) Diverticulosis (Acute) Learning disability (Chronic) manages her own medications DNR (do not resuscitate) (Chronic) DNI (do not intubate) (Chronic) Constipation (Chronic) takes lactulose to tx Financial difficulties (Chronic) Illiterate (Chronic) able to manage independently Abnormal CT scan (Acute) Family history of colon cancer (Acute) Diarrhea (Acute) Hypochromic microcytic anemia (Acute) Cough (Acute) Knee pain (Acute) Fatigue (Acute) Medical History COPD (chronic obstructive pulmonary disease) Learning disability Chronic low back pain GERD (gastroesophageal reflux disease) Sleep disorder Anxiety Vertigo Onychomycosis Eczema Benign essential tremor Diabetes mellitus HTN (hypertension) Neoplasm of skin (12/29/13) Hyperlipidemia (04/02/13) Depression (04/02/13) Restless legs takes Premapaxil Surgical History H/O arthroscopy of left knee (~01/2007) History of colonoscopy (~02/22/23) Oophrectomy, Both (04/09/13) laparotomy. aoc and kk. Abdominal hysterectomy (~1979) for heavy bleeding. Cholecystectomy laparoscopic 03/2011 Extraction of cataract in [place] Arthroplasty of knee L knee Dr Fuentes bladder suspension for incontinence Family History Sister Heart disease Son Parent-child estrangement nec Under care of correction service life sentence for murder Daughter Parent-child estrangement nec Substance abuse Other Family history of colorectal cancer Social History Smoking/Tobacco Use Status: Never Smoking risk assessment performed?: Yes Alcohol Intake: former Drug use: Never Substance use type: does not use Caregiver/Support person: No Household members: none Housing: apartment Number of Children: 0 Communication Needs: Cannot Read Education Level: middle school Details: finished 6th grade only Do you need help understanding health information?: Always current occupation: always disabled; worked as [employer] for 5 years in her late teens, early 20s Pets and animals: No Current gender identity: female What is your relationship status?: How often do you talk on the phone with friends or family?: never How often do you get together with friends or relatives?: never Panel score (0-1 are the most socially isolated patients): 0 What type of physical activity do you participate in: walking and irregular exercise Duration: < 15 minutes/day Frequency: 1-2 times per week Special pankaj needs: No Agree to transfusion: Yes Seatbelt use: always Drive 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, per pt.
[2024-01-17] MEDS: Polyethylene Glycol 3350 17 GM PACKET PO (12:01)
[2024-01-17 12:03] VITALS: PULSE 88; RESP 14; O2SAT 94
[2024-01-17] MEDS: Magnesium Citrate 300 ML BTL PO (12:25)
--- NOTE | 2024-01-17 12:47 | NUR.NOTE ---
Nursing Note: pt had large formed stool and is feeling better now.
[2024-01-17 12:53] VITALS: BP 160/61; PULSE 83; RESP 14; O2SAT 97
== END 2024-01-17 12:55 | disposition home or self-care (01) ==
PROVIDERS: Emergency Provider Registered Nurse Emergency
DX: K59.00 Constipation, unspecified (principal); K52.9 Noninfective gastroenteritis and colitis, unspecified; J44.9 Chronic obstructive pulmonary disease, unspecified; E11.9 Type 2 diabetes mellitus without complications; I10 Essential (primary) hypertension; E78.5 Hyperlipidemia, unspecified; Z79.84 Long term (current) use of oral hypoglycemic drugs
CPT/HCPCS: 99283

== ENCOUNTER 2024-01-22 16:53 | Outpatient (REF) | payer MEDICARE, MEDICAID, SELFPAY ==
[2024-01-22 20:09] LABS: Abs Immature Grans 0.04 10^3/uL (0.0-0.06); Absolute Basophil Count 0.08 10^3/uL (0.0-0.2); Absolute Eosinophil Count 0.15 10^3/uL (0.0-0.7); Absolute Lymphocyte Count 1.36 10^3/uL (1.2-3.4); Absolute Monocyte Count 0.73 10^3/uL (0.1-0.8); Absolute Neutrophil Count 7.46 10^3/uL (1.2-6.7); Basophils % 0.8 %; Eosinophils % 1.5 %; HCT 42.2 % (36.0-46.0); HGB 13.5 g/dL (11.2-15.7); Immature Grans % 0.4 %; Lymphocytes % 13.8 %; MCH 26.9 pg (27.0-33.0); MCV 84 fL (80-95); Monocytes % 7.4 %; Neutrophils % 76.1 %; Platelet Count 269 10^3/uL (130-400); RBC 5.01 10^6/uL (3.93-5.22); RDW 13.8 % (11.7-14.6); RDW-SD 42.2 fL; WBC 9.82 10^3/uL (4.4-10.8)
[2024-01-22 20:36] LABS: ALT 26 U/L (14-59); AST 18 U/L (15-37); Alkaline Phosphatase 95 U/L (46-116); Anion Gap 9.4 mmol/L (3-11); BUN 16 mg/dL (7-18); Bilirubin, Total 0.63 mg/dL (0.2-1.0); CO2 28.6 mmol/L (21.0-32.0); CREATININE 0.9 mg/dL (0.55-1.02); Calcium 9.5 mg/dL (8.5-10.1); Chloride 104 mmol/L (98-107); Estimated GFR 67.08 (mL/min/1.73m2); Glucose 77 mg/dL (74-106); Potassium 4.2 mmol/L (3.5-5.1); Sodium 142 mmol/L (136-145); Total Protein 7.3 g/dL (6.4-8.2)
[2024-01-22 20:54] LABS: Iron 98 ug/dL (50-170); Total Iron Binding Capacity 331 ug/dL (250-450); Transferrin Sat 30 % (15-50)
[2024-01-22 21:20] LABS: Hemoglobin A1C 6.6 % (<5.7)
[2024-01-22 21:36] LABS: COMMENT (LAB VIEW ONLY) 176.84 mg/dL
[2024-01-22 21:39] LABS: Microalb ug/mg Crea 242.2 ug/mg Cr
== END 2024-01-22 16:54 | disposition home or self-care (01) ==
LOC: NCHCN 16:53
PROVIDERS: Visit Provider Nurse Practitioner Family
DX: E11.9 Type 2 diabetes mellitus without complications (principal); I10 Essential (primary) hypertension; D50.9 Iron deficiency anemia, unspecified
CPT/HCPCS: 80053; 82043; 82570; 83036; 83540; 83550; 85025

== ENCOUNTER 2024-01-27 13:05 | Emergency (ER) | payer MEDICARE, MEDICAID, SELFPAY ==
[2024-01-27 13:02] VITALS: BP 152/90; PULSE 65; RESP 16; TEMP 36.4; O2SAT 99
[2024-01-27] MEDS: Magnesium Citrate 300 ML BTL 150 ML PO (13:22)
--- NOTE | 2024-01-27 13:22 | W.ED.GENAD ---
Discharge Plan Disposition Patient Disposition: Home Condition: Improving Discharge Details Chief Complaint: Abd Prob Clinical Impression: Constipation Primary Care Provider: Unknown,Unknown ED Provider: Wiley Giron Home Meds and New Rx's Prescriptions: No Action quetiapine 100 mg tablet 150 mg PO HS (DME) 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 See Rx Instructions .ROUTE .MEDSUPPLY Qty: 1 0RF Rx Instructions: As directed glyburide-metformin 5-500 mg tablet 1 tab PO BID pantoprazole 40 MG tablet,delayed release (DR/EC) 40 mg PO DAILY budesonide-formoterol [Symbicort] 160-4.5 mcg/actuation HFA aerosol inhaler 1 puff INHALATION BID Patient Comments: INHALE 1 PUFF BY MOUTH TWO TIMES A DAY Spiriva Respimat 1.25 mcg/actuation mist 2 puff INHALATION DAILY Patient Comments: INHALE TWO PUFFS BY MOUTH EVERY DAY cetirizine [24Hour Allergy] 10 mg tablet 10 mg PO DAILY PRN ferrous gluconate 324 mg (37.5 mg iron) tablet 324 mg PO DAILY Patient Comments: TAKE ONE TABLET BY MOUTH EVERY DAY Saccharomyces boulardii [Florastor] 250 mg capsule 250 mg PO BID Qty: 20 0RF simvastatin 40 MG tablet 40 mg PO HS calcium carbonate-vitamin D3 1 EACH tablet 1 ea PO BID magnesium oxide 400 mg magnesium Capsule 400 mg PO BID losartan 50 mg tablet 25 mg PO DAILY Patient Comments: TAKE ONE TABLET BY MOUTH EVERY DAY propranolol 40 mg tablet 40 mg PO BID Patient Comments: TAKE ONE TABLET BY MOUTH TWICE A DAY albuterol sulfate 90 mcg/actuation aerosol powdr breath activated 2 inh inhalation Q4H PRNQty: 1 0RF polyethylene glycol 3350 [ClearLax] 17 gram/dose powder 17 g PO DAILY PRN Discharge Instructions Instructions: Constipation, Adult ED Additional Instructions: Please follow-up with your primary care physician HPI General Date/Time Provider Initiated Documentation: 01/27/24 13:08. HPI Narrative: 73-year-old female presents with constipation endorses last bowel movement 2 days ago, denies vomiting or abdominal discomfort. Related Data Home Medications ?Medication ?Instructions ?Recorded ?Confirmed pantoprazole 40 mg tablet,delayed 40 mg PO DAILY 02/20/13 01/27/24 release calcium carbonate 600 mg-vitamin 1 ea PO BID 10/10/17 01/27/24 D3 10 mcg (400 unit) tablet simvastatin 40 mg tablet 40 mg PO HS 10/10/17 01/27/24 magnesium oxide 400 mg PO BID 07/23/19 01/27/24 quetiapine 100 mg tablet 150 mg PO HS 10/18/20 01/27/24 inhalational spacing device #1 ea 06/17/21 01/27/24 (Aerochamber MV spacer) albuterol sulfate 90 mcg/actuation 2 inh inhalation Q4H PRN #1 ea 08/22/21 01/27/24 breath activated powder inhaler propranolol 40 mg tablet 40 mg PO BID 08/22/21 01/27/24 losartan 50 mg tablet 25 mg PO DAILY 12/12/22 01/27/24 glyburide 5 mg-metformin 500 mg 1 tab PO BID 02/01/23 01/27/24 tablet Saccharomyces boulardii 250 mg 250 mg PO BID #20 caps 07/10/23 01/27/24 capsule (Florastor) budesonide-formoterol HFA 160 1 puff inhalation BID 07/10/23 01/27/24 mcg-4.5 mcg/actuation aerosol inhaler (Symbicort) cetirizine 10 mg tablet (24Hour 10 mg PO DAILY PRN 07/10/23 01/27/24 Allergy) ferrous gluconate 324 mg (37.5 mg 324 mg PO DAILY 07/10/23 01/27/24 iron) tablet tiotropium bromide 1.25 2 puff inhalation DAILY 07/10/23 01/27/24 mcg/actuation mist for inhalation (Spiriva Respimat) polyethylene glycol 3350 17 17 g PO DAILY PRN 01/27/24 01/27/24 gram/dose oral powder (ClearLax) Previous Rx's ?Medication ?Instructions ?Recorded inhalational spacing device #1 ea 06/17/21 (Aerochamber MV spacer) albuterol sulfate 90 mcg/actuation 2 inh inhalation Q4H PRN #1 ea 08/22/21 breath activated powder inhaler Saccharomyces boulardii 250 mg 250 mg PO BID #20 caps 07/10/23 capsule (Florastor) Allergies Allergy/AdvReac Type Severity Reaction Status Date / Time thiopental sodium (From Allergy Skin Rash Unverified 01/27/24 13:04 Pentothal) General Stated Complaint: Abd Prob LYNNETTE: 3 Exam Narrative Exam Narrative: Alert interactive resting comfortably Moist mucous membranes tolerate secretions Normal voice no respiratory distress Abdomen soft nontender nondistended No rash or signs of trauma The all extremities without deficit normal speech Course Vital Signs Vital signs: Vital Signs Temperature 36.4 C L 01/27/24 13:02 Pulse 65 01/27/24 13:02 Respiratory Rate 16 01/27/24 13:02 Blood Pressure 152/90 H 01/27/24 13:02 Pulse Oximetry 99 01/27/24 13:02 Temperature 36.4 C L 01/27/24 13:02 Temperature Source Skin 01/27/24 13:02 Pulse 65 01/27/24 13:02 Respiratory Rate 16 01/27/24 13:02 Blood Pressure 152/90 H 01/27/24 13:02 Blood Pressure Position Sitting 01/27/24 13:02 Pulse Oximetry 99 01/27/24 13:02 Oxygen Delivery Method Room Air 01/27/24 13:02 Oxygen Flow Rate 0 01/27/24 13:02 Pain Level 0 01/27/24 13:02 Medical Decision Making 73-year-old female presents with 2 days of constipation, denies abdominal pain nausea or vomiting, patient does have history of abdominal surgery with a hysterectomy in the 1980s. Abdomen soft nontender nondistended moist mucous membranes hemodynamically stable nonperitoneal, consider functional constipation related to diet or medication. Low suspicion for small bowel obstruction malignancy or intra-abdominal infection. Will trial magnesium citrate orally as well as mineral and Fleet enema rectally close reassessment of symptomatology 14: 28 patient has successfully had a large bowel movement. Quality:SDOH Health Related Social Needs: Health related social needs transpo insecurity Health related social needs details pt with developmental delay, lives alone, unable to comprehend difficult medical concepts, limited reading. PFSH All Active Problems (Updated 01/27/24 @ 14:30 by Wiley Giron MD) Constipation (Acute) Constipation (Acute) Gastritis (Acute) Enteritis (Acute) Abdominal pain (Acute) Abdominal pain (Acute) Social isolation (Acute) Goals of care, counseling/discussion (Acute) Carpal tunnel syndrome (Acute) Urinary, incontinence, stress female (Acute 04/02/13) Hair loss (Acute) Lives alone with help available (Acute) NO DPOA yet; ? state guardian?-pt. confirmed no on both as of 02/21/23 CHI (closed head injury) (Acute) Polypharmacy (Acute) At increased risk for social isolation (Acute) Low energy (Acute) Advance care planning (Acute) Impaired instrumental activities of daily living (Acute) Palliative care patient (Acute) Anemia (Chronic) Diverticulosis (Acute) Learning disability (Chronic) manages her own medications DNR (do not resuscitate) (Chronic) DNI (do not intubate) (Chronic) Constipation (Chronic) takes lactulose to tx Financial difficulties (Chronic) Illiterate (Chronic) able to manage independently Abnormal CT scan (Acute) Family history of colon cancer (Acute) Diarrhea (Acute) Hypochromic microcytic anemia (Acute) Cough (Acute) Knee pain (Acute) Fatigue (Acute) Medical History COPD (chronic obstructive pulmonary disease) Learning disability Chronic low back pain GERD (gastroesophageal reflux disease) Sleep disorder Anxiety Vertigo Onychomycosis Eczema Benign essential tremor Diabetes mellitus HTN (hypertension) Neoplasm of skin (12/29/13) Hyperlipidemia (04/02/13) Depression (04/02/13) Restless legs takes Premapaxil Surgical History H/O arthroscopy of left knee (~01/2007) History of colonoscopy (~02/22/23) Oophrectomy, Both (04/09/13) laparotomy. aoc and kk. Abdominal hysterectomy (~1979) for heavy bleeding. Cholecystectomy laparoscopic 03/2011 Extraction of cataract in [place] Arthroplasty of knee L knee Dr Fuentes bladder suspension for incontinence Family History Sister Heart disease Son Parent-child estrangement nec Under care of nursing home service life sentence for murder Daughter Parent-child estrangement nec Substance abuse Other Family history of colorectal cancer Social History Smoking/Tobacco Use Status: Never Smoking risk assessment performed?: Yes Alcohol Intake: former Drug use: Never Substance use type: does not use Caregiver/Support person: No Household members: none Housing: apartment Number of Children: 0 Communication Needs: Cannot Read Education Level: middle school Details: finished 6th grade only Do you need help understanding health information?: Always current occupation: always disabled; worked as [employer] for 5 years in her late teens, early 20s Pets and animals: No Current gender identity: female What is your relationship status?: How often do you talk on the phone with friends or family?: never How often do you get together with friends or relatives?: never Panel score (0-1 are the most socially isolated patients): 0 What type of physical activity do you participate in: walking and irregular exercise Duration: < 15 minutes/day Frequency: 1-2 times per week Special pankaj needs: No Agree to transfusion: Yes Seatbelt use: always Drive 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
[2024-01-27] MEDS: Mineral Oil-Enema 133 ML BTL PR (13:45)
[2024-01-27 14:20] VITALS: PULSE 85; RESP 16; TEMP 36.2; O2SAT 97
== END 2024-01-27 14:49 | disposition home or self-care (01) ==
PROVIDERS: Emergency Provider Emergency Medicine
DX: K59.00 Constipation, unspecified (principal); I10 Essential (primary) hypertension
CPT/HCPCS: 99283; 99282

== ENCOUNTER 2024-02-25 06:12 | Emergency (ER) | payer MEDICARE, MEDICAID, SELFPAY ==
[2024-02-25 06:13] VITALS: BP 160/84; PULSE 74; RESP 16; TEMP 36.2; O2SAT 98
--- NOTE | 2024-02-25 06:16 | ED.GENADUL_ITS ---
Discharge Plan Discharge Details Chief Complaint: GenMedical Clinical Impression: Constipation Primary Care Provider: Unknown,Unknown ED Provider: Benson Harper [place] Meds and New Rx's Prescriptions: No Action quetiapine 100 mg tablet 150 mg PO HS (DME) 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 See Rx Instructions .ROUTE .MEDSUPPLY Qty: 1 0RF Rx Instructions: As directed glyburide-metformin 5-500 mg tablet 1 tab PO BID pantoprazole 40 MG tablet,delayed release (DR/EC) 40 mg PO DAILY budesonide-formoterol [Symbicort] 160-4.5 mcg/actuation HFA aerosol inhaler 1 puff INHALATION BID Patient Comments: INHALE 1 PUFF BY MOUTH TWO TIMES A DAY Spiriva Respimat 1.25 mcg/actuation mist 2 puff INHALATION DAILY Patient Comments: INHALE TWO PUFFS BY MOUTH EVERY DAY cetirizine [24Hour Allergy] 10 mg tablet 10 mg PO DAILY PRN ferrous gluconate 324 mg (37.5 mg iron) tablet 324 mg PO DAILY Patient Comments: TAKE ONE TABLET BY MOUTH EVERY DAY Saccharomyces boulardii [Florastor] 250 mg capsule 250 mg PO BID Qty: 20 0RF simvastatin 40 MG tablet 40 mg PO HS calcium carbonate-vitamin D3 1 EACH tablet 1 ea PO BID magnesium oxide 400 mg magnesium Capsule 400 mg PO BID losartan 50 mg tablet 25 mg PO DAILY Patient Comments: TAKE ONE TABLET BY MOUTH EVERY DAY propranolol 40 mg tablet 40 mg PO BID Patient Comments: TAKE ONE TABLET BY MOUTH TWICE A DAY albuterol sulfate 90 mcg/actuation aerosol powdr breath activated 2 inh inhalation Q4H PRNQty: 1 0RF polyethylene glycol 3350 [ClearLax] 17 gram/dose powder 17 g PO DAILY PRN HPI General Mode of arrival: EMS . Date/Time Provider Initiated Documentation: 02/25/24 06:15 . Limitations to Documentation: no limitations . Information obtained by: patient, RN notes reviewed and old records reviewed . HPI Narrative: Patient presenting to ED by ambulance with complaint of abdominal cramping and inability to have a bowel movement. Patient reports last bowel movement was 2 days ago and very hard. Patient has previous ED visits for similar complaints. She reports taking stool softeners. She has been told to take MiraLAX in the past but is not doing so at this time. Denies any fever, vomiting, urinary symptoms. Denies any constant pain just crampy pain that comes and goes. Denies rectal pain. Related Data Home Medications ?Medication ?Instructions ?Recorded ?Confirmed pantoprazole 40 mg tablet,delayed 40 mg PO DAILY 02/20/13 02/25/24 release calcium carbonate 600 mg-vitamin 1 ea PO BID 10/10/17 02/25/24 D3 10 mcg (400 unit) tablet simvastatin 40 mg tablet 40 mg PO HS 10/10/17 02/25/24 magnesium oxide 400 mg PO BID 07/23/19 02/25/24 quetiapine 100 mg tablet 150 mg PO HS 10/18/20 02/25/24 inhalational spacing device #1 ea 06/17/21 01/27/24 (Aerochamber MV spacer) albuterol sulfate 90 mcg/actuation 2 inh inhalation Q4H PRN #1 ea 08/22/21 02/25/24 breath activated powder inhaler propranolol 40 mg tablet 40 mg PO BID 08/22/21 02/25/24 losartan 50 mg tablet 25 mg PO DAILY 12/12/22 02/25/24 glyburide 5 mg-metformin 500 mg 1 tab PO BID 02/01/23 02/25/24 tablet Saccharomyces boulardii 250 mg 250 mg PO BID #20 caps 07/10/23 02/25/24 capsule (Florastor) budesonide-formoterol HFA 160 1 puff inhalation BID 07/10/23 02/25/24 mcg-4.5 mcg/actuation aerosol inhaler (Symbicort) cetirizine 10 mg tablet (24Hour 10 mg PO DAILY PRN 07/10/23 02/25/24 Allergy) ferrous gluconate 324 mg (37.5 mg 324 mg PO DAILY 07/10/23 02/25/24 iron) tablet tiotropium bromide 1.25 2 puff inhalation DAILY 07/10/23 02/25/24 mcg/actuation mist for inhalation (Spiriva Respimat) polyethylene glycol 3350 17 17 g PO DAILY PRN 01/27/24 02/25/24 gram/dose oral powder (ClearLax) Previous Rx's ?Medication ?Instructions ?Recorded inhalational spacing device #1 ea 06/17/21 (Aerochamber MV spacer) albuterol sulfate 90 mcg/actuation 2 inh inhalation Q4H PRN #1 ea 08/22/21 breath activated powder inhaler Saccharomyces boulardii 250 mg 250 mg PO BID #20 caps 07/10/23 capsule (Florastor) Allergies Allergy/AdvReac Type Severity Reaction Status Date / Time thiopental sodium (From Allergy Skin Rash Verified 02/25/24 06:16 Pentothal) General LYNNETTE: 3 Review of Systems Narrative: Per HPI Exam Narrative Exam Narrative: Const: WDWN elderly female in NAD. VS per triage. HEENT: NC/AT. Normal facial exam. Neck: Supple. Trachea midline. Lungs: Normal respiratory effort. GI: Soft/ND/NT Rectal: Done with female nurse present. Large external hemorrhoids noted. No stool in the rectal vault. Neuro: A+O x 3. Cranial nerves II - XII grossly intact. No gross motor or sensory deficit. Medical Decision Making Patient presenting to ED with complaint of abdominal cramping and constipation. Patient reports taking stool softeners but not laxative and not daily MiraLAX. Has previous ED visits for same. Response to mag citrate and/or enemas in the past. Abdomen is benign. No evidence of fecal impaction on rectal exam. Mag citrate ordered. Medical Records Medical records reviewed: Yes I reviewed the patient's medical records. PFSH All Active Problems (Updated 02/25/24 @ 07:15 by Benson Harper MD) Constipation (Acute) Social isolation (Acute) Goals of care, counseling/discussion (Acute) Carpal tunnel syndrome (Acute) Urinary, incontinence, stress female (Acute 04/02/13) Hair loss (Acute) Lives alone with help available (Acute) NO DPOA yet; ? state guardian?-pt. confirmed no on both as of 02/21/23 CHI (closed head injury) (Acute) Polypharmacy (Acute) At increased risk for social isolation (Acute) Low energy (Acute) Advance care planning (Acute) Impaired instrumental activities of daily living (Acute) Palliative care patient (Acute) Anemia (Chronic) Diverticulosis (Acute) Learning disability (Chronic) manages her own medications DNR (do not resuscitate) (Chronic) DNI (do not intubate) (Chronic) Constipation (Chronic) takes lactulose to tx Financial difficulties (Chronic) Illiterate (Chronic) able to manage independently Abnormal CT scan (Acute) Family history of colon cancer (Acute) Diarrhea (Acute) Hypochromic microcytic anemia (Acute) Cough (Acute) Knee pain (Acute) Fatigue (Acute) Medical History COPD (chronic obstructive pulmonary disease) Learning disability Chronic low back pain GERD (gastroesophageal reflux disease) Sleep disorder Anxiety Vertigo Onychomycosis Eczema Benign essential tremor Diabetes mellitus HTN (hypertension) Neoplasm of skin (12/29/13) Hyperlipidemia (04/02/13) Depression (04/02/13) Restless legs takes Premapaxil Surgical History H/O arthroscopy of left knee (~01/2007) History of colonoscopy (~02/22/23) Oophrectomy, Both (04/09/13) laparotomy. aoc and kk. Abdominal hysterectomy (~1979) for heavy bleeding. Cholecystectomy laparoscopic 03/2011 Extraction of cataract in [place] Arthroplasty of knee L knee Dr Fuentes bladder suspension for incontinence Family History Sister Heart disease Son Parent-child estrangement nec Under care of custodial service life sentence for murder Daughter Parent-child estrangement nec Substance abuse Other Family history of colorectal cancer Social History Smoking/Tobacco Use Status: Never Smoking risk assessment performed?: Yes Alcohol Intake: former Drug use: Never Substance use type: does not use Caregiver/Support person: No Household members: none Housing: apartment Number of Children: 0 Communication Needs: Cannot Read Education Level: middle school Details: finished 6th grade only Do you need help understanding health information?: Always current occupation: always disabled; worked as [employer] for 5 years in her late teens, early 20s Pets and animals: No Current gender identity: female What is your relationship status?: How often do you talk on the phone with friends or family?: never How often do you get together with friends or relatives?: never Panel score (0-1 are the most socially isolated patients): 0 What type of physical activity do you participate in: walking and irregular exercise Duration: < 15 minutes/day Frequency: 1-2 times per week Special pankaj needs: No Agree to transfusion: Yes Seatbelt use: always Drive intox or ride w/intox school bus driver/custodian: No Water heater temp set <120 deg: Yes Working smoke detector in home: Yes Firearms in home: No Do you feel safe at home: Yes Do you feel safe in your relationship?: Yes Additional Social history: Lives at [facility], per pt.
[2024-02-25] MEDS: Magnesium Citrate 300 ML BTL 150 ML PO (06:38)
[2024-02-25] MEDS: Na Phosphate Enema-Adult 133 ML BTL PR (07:47)
--- NOTE | 2024-02-25 08:03 | ED.PROG_ITS ---
Date of service: 02/25/24 Time of Service: 08:03 Medical Decision Making Enemas as well as soapsuds enema have been ordered. Patient resting comfortably currently. Remains hemodynamically stable. No acute distress. 20:44 patient resting comfortably, requesting to go home Quality:SDOH Health Related Social Needs: Health related social needs transpo insecurity Health related social needs details pt with developmen luis delay, lives alone, unable to comprehend difficult medical concepts, limited reading. Sign Out Sign Out Data: Sign Out Comment: Status post dose of mag citrate; pending results to eval for improvement of symptoms Last updated by Benson Harper MD at 02/25/24 07:17 Discharge Plan Disposition Patient Disposition: Home Condition: Stable Discharge Details Clinical Impression: Constipation Primary Care Provider: Unknown,Unknown ED Provider: Wiley Giron Home Meds and New Rx's Prescriptions: New polyethylene glycol 3350 [Miralax] 17 gram/dose powder 17 g PO DAILY 3 Days Qty: 51 0RF No Action quetiapine 100 mg tablet 150 mg PO HS (DME) 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 See Rx Instructions .ROUTE .MEDSUPPLY Qty: 1 0RF Rx Instructions: As directed glyburide-metformin 5-500 mg tablet 1 tab PO BID pantoprazole 40 MG tablet,delayed release (DR/EC) 40 mg PO DAILY budesonide-formoterol [Symbicort] 160-4.5 mcg/actuation HFA aerosol inhaler 1 puff INHALATION BID Patient Comments: INHALE 1 PUFF BY MOUTH TWO TIMES A DAY Spiriva Respimat 1.25 mcg/actuation mist 2 puff INHALATION DAILY Patient Comments: INHALE TWO PUFFS BY MOUTH EVERY DAY cetirizine [24Hour Allergy] 10 mg tablet 10 mg PO DAILY PRN ferrous gluconate 324 mg (37.5 mg iron) tablet 324 mg PO DAILY Patient Comments: TAKE ONE TABLET BY MOUTH EVERY DAY Saccharomyces boulardii [Florastor] 250 mg capsule 250 mg PO BID Qty: 20 0RF simvastatin 40 MG tablet 40 mg PO HS calcium carbonate-vitamin D3 1 EACH tablet 1 ea PO BID magnesium oxide 400 mg magnesium Capsule 400 mg PO BID losartan 50 mg tablet 25 mg PO DAILY Patient Comments: TAKE ONE TABLET BY MOUTH EVERY DAY propranolol 40 mg tablet 40 mg PO BID Patient Comments: TAKE ONE TABLET BY MOUTH TWICE A DAY albuterol sulfate 90 mcg/actuation aerosol powdr breath activated 2 inh inhalation Q4H PRNQty: 1 0RF polyethylene glycol 3350 [ClearLax] 17 gram/dose powder 17 g PO DAILY PRN Discharge Instructions Additional Instructions: Please followup with your primary care physician
== END 2024-02-25 09:39 | disposition home or self-care (01) ==
PROVIDERS: Emergency Provider Emergency Medicine
DX: K59.00 Constipation, unspecified (principal); R10.9 Unspecified abdominal pain
CPT/HCPCS: 00123; 99283

== ENCOUNTER 2024-02-27 19:38 | Emergency (ER) | payer MEDICARE, MEDICAID, SELFPAY ==
[2024-02-27 19:38] VITALS: BP 191/101; PULSE 79; RESP 16; TEMP 36.1; O2SAT 97
--- NOTE | 2024-02-27 19:56 | W.ED.GENAD ---
Discharge Plan Disposition Patient Disposition: Home Condition: Stable Discharge Details Clinical Impression: Constipation Primary Care Provider: Unknown,Unknown ED Provider: Katie Rabago Meds and New Rx's Prescriptions: New polyethylene glycol 3350 [Miralax] 17 gram/dose powder 17 g PO DAILY 5 Days Qty: 85 0RF Rx Instructions: Mix one packet in 8 oz liquid and drink orally daily No Action quetiapine 100 mg tablet 150 mg PO HS (DME) 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 See Rx Instructions .ROUTE .MEDSUPPLY Qty: 1 0RF Rx Instructions: As directed glyburide-metformin 5-500 mg tablet 1 tab PO BID pantoprazole 40 MG tablet,delayed release (DR/EC) 40 mg PO DAILY budesonide-formoterol [Symbicort] 160-4.5 mcg/actuation HFA aerosol inhaler 1 puff INHALATION BID Patient Comments: INHALE 1 PUFF BY MOUTH TWO TIMES A DAY Spiriva Respimat 1.25 mcg/actuation mist 2 puff INHALATION DAILY Patient Comments: INHALE TWO PUFFS BY MOUTH EVERY DAY cetirizine [24Hour Allergy] 10 mg tablet 10 mg PO DAILY PRN ferrous gluconate 324 mg (37.5 mg iron) tablet 324 mg PO DAILY Patient Comments: TAKE ONE TABLET BY MOUTH EVERY DAY Saccharomyces boulardii [Florastor] 250 mg capsule 250 mg PO BID Qty: 20 0RF simvastatin 40 MG tablet 40 mg PO HS calcium carbonate-vitamin D3 1 EACH tablet 1 ea PO BID magnesium oxide 400 mg magnesium Capsule 400 mg PO BID losartan 50 mg tablet 25 mg PO DAILY Patient Comments: TAKE ONE TABLET BY MOUTH EVERY DAY propranolol 40 mg tablet 40 mg PO BID Patient Comments: TAKE ONE TABLET BY MOUTH TWICE A DAY albuterol sulfate 90 mcg/actuation aerosol powdr breath activated 2 inh inhalation Q4H PRNQty: 1 0RF polyethylene glycol 3350 [ClearLax] 17 gram/dose powder 17 g PO DAILY PRN Discharge Instructions Instructions: Constipation, Adult ED Additional Instructions: Continue drinking prune juice and increase oral fluids. Use the MiraLAX daily to have consistent bowel movements. Follow up with primary care provider in 3-5 days. Return to ED sooner if any worsening or concerns. Referrals: Primary Care Provider [Outside] - 3 days Discharge Data Discharge Date/Time-TO BE ENTERED AT DEPARTURE: 02/27/24 20:20 HPI General Mode of arrival: wheelchair. Date/Time Provider Initiated Documentation: 02/27/24 19:56. Limitations to Documentation: no limitations. Information obtained by: patient, RN notes reviewed and old records reviewed. HPI Narrative: 73-year-old female presents to the ER with a chief complaint of constipation which she has had in the past. She has been drinking a lot of prune juice and has had a bowel movement upon arrival to the department. She does have a history of COPD, chronic low back pain, GERD, sleep disorder, anxiety, diabetes, hypertension hyperlipidemia depression restless legs. Related Data Home Medications ?Medication ?Instructions ?Recorded ?Confirmed pantoprazole 40 mg tablet,delayed 40 mg PO DAILY 02/20/13 02/25/24 release calcium carbonate 600 mg-vitamin 1 ea PO BID 10/10/17 02/25/24 D3 10 mcg (400 unit) tablet simvastatin 40 mg tablet 40 mg PO HS 10/10/17 02/25/24 magnesium oxide 400 mg PO BID 07/23/19 02/25/24 quetiapine 100 mg tablet 150 mg PO HS 10/18/20 02/25/24 inhalational spacing device #1 ea 06/17/21 01/27/24 (Aerochamber MV spacer) albuterol sulfate 90 mcg/actuation 2 inh inhalation Q4H PRN #1 ea 08/22/21 02/25/24 breath activated powder inhaler propranolol 40 mg tablet 40 mg PO BID 08/22/21 02/25/24 losartan 50 mg tablet 25 mg PO DAILY 12/12/22 02/25/24 glyburide 5 mg-metformin 500 mg 1 tab PO BID 02/01/23 02/25/24 tablet Saccharomyces boulardii 250 mg 250 mg PO BID #20 caps 07/10/23 02/25/24 capsule (Florastor) budesonide-formoterol HFA 160 1 puff inhalation BID 07/10/23 02/25/24 mcg-4.5 mcg/actuation aerosol inhaler (Symbicort) cetirizine 10 mg tablet (24Hour 10 mg PO DAILY PRN 07/10/23 02/25/24 Allergy) ferrous gluconate 324 mg (37.5 mg 324 mg PO DAILY 07/10/23 02/25/24 iron) tablet tiotropium bromide 1.25 2 puff inhalation DAILY 07/10/23 02/25/24 mcg/actuation mist for inhalation (Spiriva Respimat) polyethylene glycol 3350 17 17 g PO DAILY PRN 01/27/24 02/25/24 gram/dose oral powder (ClearLax) polyethylene glycol 3350 17 17 g PO DAILY Constipation 5 days 02/27/24 gram/dose oral powder (Miralax) #85 grams Previous Rx's ?Medication ?Instructions ?Recorded inhalational spacing device #1 ea 06/17/21 (Aerochamber MV spacer) albuterol sulfate 90 mcg/actuation 2 inh inhalation Q4H PRN #1 ea 08/22/21 breath activated powder inhaler Saccharomyces boulardii 250 mg 250 mg PO BID #20 caps 07/10/23 capsule (Florastor) polyethylene glycol 3350 17 17 g PO DAILY Constipation 5 days 02/27/24 gram/dose oral powder (Miralax) #85 grams Allergies Allergy/AdvReac Type Severity Reaction Status Date / Time thiopental sodium (From Allergy Skin Rash Verified 02/25/24 06:16 Pentothal) General Stated Complaint: GenMedical LYNNETTE: 5 Review of Systems All systems reviewed & are unremarkable except as noted in HPI and below Gastrointestinal Gastrointestinal: Reports as per HPI and Reports constipation (relieved upon arrival to ED) Exam Narrative Exam Narrative: Constitutional: Alert and oriented x3. Appears stated age. Normal body habitus. Head: Normocephalic, no trauma. Eyes: Pupils PERRL, Red reflex noted, EOM's intact. Eyelids symmetrical without lesions, discharge, or swelling. ENT: Bilateral TM's WNL, External ear normal to inspection, no mastoid TTP, swelling, or erythema, Nasal turbinates WNL, no nasal discharge. Normal dentition, Posterior pharynx WNL, no exudate. Chest: RRR, Normal S1, S2, distal pulses intact. Resp: Lungs clear to auscultation bilaterally, no wheezes, rales, or rhonchi. Abdomen: Soft, non-distended, Normoactive bowel sounds all 4 quads. Musculoskeletal: Normal gait, Moves all 4 extremities without difficulty. Skin: No suspicious rashes or lesions. Capillary refill less than 2 sec. Neurologic: Cranial nerves II-XII intact. Alert and oriented x 3. Motor: No deficits noted. Sensory: Intact bilaterally all 4 extremities. Hematologic/Lymphatic: No ecchymosis, no lymphadenopathy. Course Vital Signs Vital signs: Vital Signs Temperature 36.1 C L 02/27/24 19:38 Pulse 79 02/27/24 19:38 Respiratory Rate 16 02/27/24 19:38 Blood Pressure 191/101 H 02/27/24 19:38 Pulse Oximetry 97 02/27/24 19:38 Temperature 36.1 C L 02/27/24 19:38 Pulse 79 02/27/24 19:38 Respiratory Rate 16 02/27/24 19:38 Respiratory Effort Normal 02/27/24 19:42 Blood Pressure 191/101 H 02/27/24 19:38 Pulse Oximetry 97 02/27/24 19:38 Oxygen Delivery Method Room Air 02/27/24 19:38 Oxygen Flow Rate 0 02/27/24 19:38 Pain Level 10 02/27/24 19:38 Medical Decision Making Patient reports she feels much better after having a bowel movement while in the waiting room. Prescribed MiraLAX and instructed on increasing oral fluids and follow-up with PCP she verbalized understanding. This text was generated using Edaiation system, please disregard any oddities of phrase or misspellings. Quality:SDOH Health Related Social Needs: Health related social needs transpo insecurity Health related social needs details pt with developmental delay, lives alone, unable to comprehend difficult medical concepts, limited reading. PFSH All Active Problems (Updated 02/27/24 @ 20:02 by Katie Rabago NP) Social isolation (Acute) Goals of care, counseling/discussion (Acute) Carpal tunnel syndrome (Acute) Urinary, incontinence, stress female (Acute 04/02/13) Hair loss (Acute) Lives alone with help available (Acute) NO DPOA yet; ? state guardian?-pt. confirmed no on both as of 02/21/23 CHI (closed head injury) (Acute) Polypharmacy (Acute) At increased risk for social isolation (Acute) Low energy (Acute) Advance care planning (Acute) Impaired instrumental activities of daily living (Acute) Palliative care patient (Acute) Anemia (Chronic) Diverticulosis (Acute) Learning disability (Chronic) manages her own medications DNR (do not resuscitate) (Chronic) DNI (do not intubate) (Chronic) Constipation (Chronic) takes lactulose to tx Financial difficulties (Chronic) Illiterate (Chronic) able to manage independently Abnormal CT scan (Acute) Family history of colon cancer (Acute) Diarrhea (Acute) Hypochromic microcytic anemia (Acute) Cough (Acute) Knee pain (Acute) Fatigue (Acute) Medical History COPD (chronic obstructive pulmonary disease) Learning disability Chronic low back pain GERD (gastroesophageal reflux disease) Sleep disorder Anxiety Vertigo Onychomycosis Eczema Benign essential tremor Diabetes mellitus HTN (hypertension) Neoplasm of skin (12/29/13) Hyperlipidemia (04/02/13) Depression (04/02/13) Restless legs takes Premapaxil Surgical History H/O arthroscopy of left knee (~01/2007) History of colonoscopy (~02/22/23) Oophrectomy, Both (04/09/13) laparotomy. aoc and kk. Abdominal hysterectomy (~1979) for heavy bleeding. Cholecystectomy laparoscopic 03/2011 Extraction of cataract in [place] Arthroplasty of knee L knee Dr Fuentes bladder suspension for incontinence Family History Sister Heart disease Son Parent-child estrangement nec Under care of [facility] life sentence for murder Daughter Parent-child estrangement nec Substance abuse Other Family history of colorectal cancer Social History Smoking/Tobacco Use Status: Never Smoking risk assessment performed?: Yes Alcohol Intake: former Drug use: Never Substance use type: does not use Caregiver/Support person: No Household members: none Housing: apartment Number of Children: 0 Communication Needs: Cannot Read Education Level: middle school Details: finished 6th grade only Do you need help understanding health information?: Always current occupation: always disabled; worked as [employer] for 5 years in her late teens, early 20s Pets and animals: No Current gender identity: female What is your relationship status?: How often do you talk on the phone with friends or family?: never How often do you get together with friends or relatives?: never Panel score (0-1 are the most socially isolated patients): 0 What type of physical activity do you participate in: walking and irregular exercise Duration: < 15 minutes/day Frequency: 1-2 times per week Special pankaj needs: No Agree to transfusion: Yes Seatbelt use: always Drive intox or ride w/intox mechanic driver: No Water heater temp set <120 deg: Yes Working smoke detector in home: Yes Firearms in home: No Do you feel safe at home: Yes Do you feel safe in your relationship?: Yes Additional Social history: Lives at [facility], per pt.
[2024-02-27 19:59] VITALS: RESP 16
== END 2024-02-27 20:20 | disposition home or self-care (01) ==
PROVIDERS: Emergency Provider Registered Nurse Emergency
DX: K59.00 Constipation, unspecified (principal); F81.9 Developmental disorder of scholastic skills, unspecified
CPT/HCPCS: 99283

== ENCOUNTER 2024-04-12 16:51 | Emergency (ER) | payer MEDICARE, MEDICAID, SELFPAY ==
[2024-04-12] VITALS (12 sets, daily range): BP systolic 106–155; BP diastolic 80–113; PULSE 69–80; RESP 12–25; TEMP 36.8; O2SAT 82–99
[2024-04-12 17:25] LABS: Abs Immature Grans 0.05 10^3/uL (0.0-0.06); Absolute Basophil Count 0.07 10^3/uL (0.0-0.2); Absolute Eosinophil Count 0.25 10^3/uL (0.0-0.7); Absolute Lymphocyte Count 1.26 10^3/uL (1.2-3.4); Absolute Monocyte Count 0.66 10^3/uL (0.1-0.8); Basophils % 0.7 %; Eosinophils % 2.6 %; HCT 39.5 % (36.0-46.0); HGB 12.6 g/dL (11.2-15.7); Immature Grans % 0.5 %; Lymphocytes % 13.3 %; MCH 26.8 pg (27.0-33.0); MCHC 31.9 % (32.0-36.0); MCV 84 fL (80-95); MPV 9.3 fL (8.0-11.0); Neutrophils % 75.9 %; Platelet Count 229 10^3/uL (130-400); RDW 13.3 % (11.7-14.6); RDW-SD 41.1 fL; WBC 9.49 10^3/uL (4.4-10.8)
[2024-04-12 17:35] LABS: Prothrombin Time 10.3 sec (9.1-11.1)
[2024-04-12 17:42] LABS: ALT 28 U/L (14-59); AST 23 U/L (15-37); Albumin 3.7 g/dL (3.4-5.0); Alkaline Phosphatase 98 U/L (46-116); Anion Gap 8.3 mmol/L (3-11); BUN 10 mg/dL (7-18); Bilirubin, Total 0.53 mg/dL (0.2-1.0); CO2 27.7 mmol/L (21.0-32.0); CREATININE 0.7 mg/dL (0.55-1.02); Calcium 9.3 mg/dL (8.5-10.1); Chloride 104 mmol/L (98-107); Glucose 105 mg/dL (74-106); Lipase 12 U/L (16-77); Potassium 3.9 mmol/L (3.5-5.1); Sodium 140 mmol/L (136-145); Total Protein 7.9 g/dL (6.4-8.2)
--- NOTE | 2024-04-12 17:45 | DI.CT_ITS ---
Exam(s) CT ABDOMEN PELVIS W EXAM: CT ABDOMEN PELVIS W CLINICAL HISTORY: abdominal pain, constipation. TECHNIQUE: Imaging Protocol: Axial computed tomography images with coronal and sagittal reformatted images were created and reviewed CONTRAST MATERIAL: Intravenous: Omnipaque-350 85cc Oral: None COMPARISON: CT CT ABDOMEN PELVIS W from 01/16/2024 FINDINGS: VISUALIZED LUNG BASES: No nodules nor pleural effusions evident. ABDOMEN: GI: There is again noted evidence of previous cholecystectomy, appendectomy, and hysterectomy. There is no evidence of bowel obstruction, free air, nor abscess. There is no ascites. However, there is liquid throughout the large bowel including the rectum consistent with diarrhea state. Stomach and duodenum are not distended. Small bowel loop diameters are normal. LIVER: There are no focal hepatic lesions evident. No dilated intrahepatic ducts. GALLBLADDER/BILIARY: Gallbladder is again noted to be surgically absent. CBD is not dilated. PANCREAS: Pancreas is somewhat atrophic. No masses nor dilated pancreatic duct. No parenchymal calc ifications. SPLEEN: Spleen is not enlarged. No obvious intrasplenic lesions. Splenic and portal veins are paten t. ADRENALS: There are no significant adrenal masses. KIDNEYS:There is an unchanged partially calcified cyst in the superior pole of the left kidney measur ing 2 by 1.3 cm, unchanged. A smaller simple cyst in the lateral cortex of the left kidney measuring 4 millimeters is also unchanged. There is mild bilateral perinephric streaking which is unchanged. There are no radiopaque calculi seen within the ureters. No solid renal masses.. ABDOMINAL AORTA: The abdominal aorta is calcified but not enlarged. The common iliac arteries are no t enlarged. LYMPH NODES:There is no retroperitoneal nor paraaortic adenopathy. ABDOMINAL WALL: No evidence of significant anterior abdominal wall nor inguinal hernia. GI: There is no evidence of bowel obstruction, free air, nor abscess. PELVIS: GI: Appendix is again noted be surgically absent.There are diverticuli in the sigmoid but no evidence of acute diverticulitis. Also a few uncomplicated diverticuli in the descending-left colon. LYMPH NODES: Uterus again noted be surgically absent. No abnormal adnexal findings. REPRODUCTIVE: Age-appropriate URINARY BLADDER: No calculi nor obvious masses evident OSSEOUS: No fractures and no significant osseous lesions. Benign-appearing sclerotic bone lesion in the right-side of the sacrum is unchanged and probably a be nign bone island. IMPRESSION: 1. Compared to the prior CT scan of 01/16/2024 there is again noted evidence of previous cholecystect lavonne, appendectomy, and hysterectomy. 2. There is fluid seen throughout the length of the colon consistent with diarrhea state/enteritis. There does not appear to be an obvious colitis pattern.. 3. Unchanged benign-appearing 2 cm cyst in superior pole left kidney which contains a mural calcifica tion. RADIATION DOSE DELIVERED: 361.05mGy.cm Total DLP DATA REPOSITORY: All CT scans at this facility are submitted to the National Radiology Data Registry (NRDR) Dose Index Registry (DIR) with the [employer] (ACR). RADIATION OPTIMIZATION: All CT scans at this facility use at least one of these dose optimization te chniques: automated exposure control; mA and/or kV adjustment per patient size (includes targeted exa ms where dose is matched to clinical indication); or iterative reconstruction.
[2024-04-12] MEDS: Normal Saline - Diluent 50 ML VIAL IJ (18:04)
[2024-04-12] MEDS: Omnipaque 350 MG/ML 100 ML BTL IJ (18:05)
[2024-04-12 19:30] LABS: Bilirubin Negative (Negative); Blood Negative (Negative); Clarity Clear (Clear); Glucose Negative (Negative); Ketones Negative (Negative); Leukocyte Esterase Trace (Negative); Nitrite Negative (Negative); Specific Gravity <= 1.005 (1.005-1.025); Urobilinogen 0.2 mg/dL (Up to 0.2)
[2024-04-12 19:34] LABS: Bacteria Rare HPF (Negative); C & S Indicated? No; Casts Negative LPF (Negative); Crystals Negative HPF (Negative); Epithelial Cells Few HPF (Negative); Mucus Negative (Negative); RBC Negative HPF (0-2)
--- NOTE | 2024-04-12 20:29 | ED.GENADUL_ITS ---
Discharge Plan Disposition Patient Disposition: Home Condition: Stable Discharge Details Clinical Impression: Abdominal pain, Tinea corporis Primary Care Provider: Sue Lopez ED Provider: Lynn Milian Home Meds and New Rx's Prescriptions: New nystatin [Klayesta] 100,000 unit/gram powder 1 applic topical BID Qty: 60 0RF Rx Instructions: apply to abdominal folds and umbilicus Continued quetiapine 100 mg tablet 150 mg PO HS (DME) 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 See Rx Instructions .ROUTE .MEDSUPPLY Qty: 1 0RF Rx Instructions: As directed Excedrin Extra Strength 250-250-65 mg tablet 1 tab PO QDAY PRN bisacodyl 5 mg tablet 5 mg PO DAILY PRN docusate sodium [Colace] 100 mg capsule 100 mg PO QDAY PRN (Reason: constipation) Qty: 60 0RF Rx Instructions: Take 1 tab daily only if no bowel movement in 2 days, per bowel log polyethylene glycol 3350 17 gram/dose powder 17 g PO DAILY PRN (Reason: constipation) Qty: 119 0RF Rx Instructions: Use only if no bowels in 4 days glyburide-metformin 5-500 mg tablet 1 tab PO BID pantoprazole 40 MG tablet,delayed release (DR/EC) 40 mg PO DAILY budesonide-formoterol [Symbicort] 160-4.5 mcg/actuation HFA aerosol inhaler 1 puff INHALATION BID Patient Comments: INHALE 1 PUFF BY MOUTH TWO TIMES A DAY Spiriva Respimat 1.25 mcg/actuation mist 2 puff INHALATION DAILY Patient Comments: INHALE TWO PUFFS BY MOUTH EVERY DAY ferrous gluconate 324 mg (37.5 mg iron) tablet 324 mg PO DAILY Patient Comments: TAKE ONE TABLET BY MOUTH EVERY DAY calcium carbonate-vitamin D3 1 EACH tablet 1 ea PO BID losartan 50 mg tablet 25 mg PO DAILY Patient Comments: TAKE ONE TABLET BY MOUTH EVERY DAY propranolol 40 mg tablet 40 mg PO BID Patient Comments: TAKE ONE TABLET BY MOUTH TWICE A DAY albuterol sulfate 90 mcg/actuation aerosol powdr breath activated 2 inh inhalation Q4H PRNQty: 1 0RF polyethylene glycol 3350 [ClearLax] 17 gram/dose powder 17 g PO DAILY PRN Discharge Instructions Instructions: Fungal Skin Rash (DC), Constipation, Child ED Additional Instructions: Continue taking your medications for constipation, your CAT scan was reassuring and looks like you are going to have a bowel movement Your labs also look great Apply the nystatin powder to your abdominal folds in your bellybutton, this will help with the yeast rash Follow-up with your doctor next week for reassessment and return earlier with new or worsening complaints Please have your blood pressure rechecked by your primary Referrals: Sue Lopez [Primary Care Provider] - 1 day HPI General Date/Time Provider Initiated Documentation: 04/12/24 17:16 . HPI Narrative: 73-year-old female presenting with report of abdominal discomfort and some blood in her stool with constipation per patient. She states for the past 48 hours. Her last episode of blood in stool was yesterday per patient. She has had some output today but not much which concerns her. She denies any chest pain or sarah rtness of breath. She denies any dizziness or weakness. Related Data Home Medications ?Medication ?Instructions ?Recorded ?Confirmed pantoprazole 40 mg tablet,delayed 40 mg PO DAILY 02/20/13 04/12/24 release calcium 600 mg (as 1 ea PO BID 10/10/17 04/12/24 carbonate)-vitamin D3 10 mcg (400 unit) tablet quetiapine 100 mg tablet 150 mg PO HS 10/18/20 04/12/24 inhalational spacing device #1 ea 06/17/21 04/12/24 (Aerochamber MV spacer) albuterol sulfate 90 mcg/actuation 2 inh inhalation Q4H PRN #1 ea 08/22/21 04/12/24 breath activated powder inhaler propranolol 40 mg tablet 40 mg PO BID 08/22/21 04/12/24 losartan 50 mg tablet 25 mg PO DAILY 12/12/22 04/12/24 glyburide 5 mg-metformin 500 mg 1 tab PO BID 02/01/23 04/12/24 tablet budesonide-formoterol HFA 160 1 puff inhalation BID 07/10/23 04/12/24 mcg-4.5 mcg/actuation aerosol inhaler (Symbicort) ferrous gluconate 324 mg (37.5 mg 324 mg PO DAILY 07/10/23 04/12/24 iron) tablet tiotropium bromide 1.25 2 puff inhalation DAILY 07/10/23 04/12/24 mcg/actuation mist for inhalation (Spiriva Respimat) polyethylene glycol 3350 17 17 g PO DAILY PRN 01/27/24 04/12/24 gram/dose oral powder (ClearLax) rghmors-kouremswgyegs-ttgfmqeh 250 1 tab PO QDAY PRN 03/11/24 04/12/24 mg-250 mg-65 mg tablet (Excedrin Extra Strength) bisacodyl 5 mg tablet 5 mg PO DAILY PRN 03/11/24 04/12/24 docusate sodium 100 mg capsule 100 mg PO QDAY PRN constipation 03/14/24 04/12/24 (Colace) #60 caps polyethylene glycol 3350 17 17 g PO DAILY PRN constipation 03/14/24 04/12/24 gram/dose oral powder #119 grams nystatin 100,000 unit/gram topical 1 applic topical BID #60 grams 04/12/24 powder (Klayesta) Previous Rx's ?Medication ?Instructions ?Recorded inhalational spacing device #1 ea 06/17/21 (Aerochamber MV spacer) albuterol sulfate 90 mcg/actuation 2 inh inhalation Q4H PRN #1 ea 08/22/21 breath activated powder inhaler docusate sodium 100 mg capsule 100 mg PO QDAY PRN constipation 03/14/24 (Colace) #60 caps polyethylene glycol 3350 17 17 g PO DAILY PRN constipation 03/14/24 gram/dose oral powder #119 grams nystatin 100,000 unit/gram topical 1 applic topical BID #60 grams 04/12/24 powder (Klayesta) Allergies Allergy/AdvReac Type Severity Reaction Status Date / Time thiopental sodium (From Allergy Skin Rash Verified 02/25/24 06:16 Pentothal) General Stated Complaint: GI Bleed LYNNETTE: 3 Exam Narrative Exam Narrative: This 73-year-old female is alert oriented, no acute distress, pupils equal round reactive to light and accommodation, no abdominal tenderness appreciated, tinea noted to abdominal folds, Course Vital Signs Vital signs: Vital Signs Temperature 36.8 C 04/12/24 16:50 Pulse 78 04/12/24 16:50 Respiratory Rate 18 04/12/24 16:50 Blood Pressure 106/92 H 04/12/24 16:50 Pulse Oximetry 96 04/12/24 16:50 Temperature 36.8 C 04/12/24 16:50 Temperature Source Oral 04/12/24 16:50 Pulse 69 04/12/24 18:22 Pulse 74 04/12/24 19:20 Respiratory Rate 19 04/12/24 19:20 Respiratory Effort Normal 04/12/24 17:46 Blood Pressure 152/80 H 04/12/24 18:22 Blood Pressure Mean 99 04/12/24 18:22 Blood Pressure Position Supine 04/12/24 16:50 Pulse Oximetry 97 04/12/24 19:20 Oxygen Delivery Method Room Air 04/12/24 16:50 Oxygen Flow Rate 0 04/12/24 16:50 Lab/Test Results Lab/Test Results: Laboratory Tests Range/Units 04/12/24 04/12/24 17:15 19:25 WBC (4.4-10.8) 10^3/uL 9.49 RBC (3.93-5.22) 10^6/uL 4.70 Hgb (11.2-15.7) g/dL 12.6 Hct (36.0-46.0) % 39.5 MCV (80-95) fL 84 MCH (27.0-33.0) pg 26.8 L MCHC (32.0-36.0) % 31.9 L RDW (11.7-14.6) % 13.3 Plt Count (130-400) 10^3/uL 229 MPV (8.0-11.0) fL 9.3 Immature Gran % % 0.5 Neutrophils % % 75.9 Lymphocytes % % 13.3 Monocytes % % 7.0 Eosinophils % % 2.6 Basophils % % 0.7 Nucleated RBC % (0.0-0.3) % 0.0 Absolute Neutrophils (1.2-6.7) 10^3/uL 7.20 H Absolute Lymphocytes (1.2-3.4) 10^3/uL 1.26 Absolute Monocytes (0.1-0.8) 10^3/uL 0.66 Absolute Eosinophils (0.0-0.7) 10^3/uL 0.25 Absolute Basophils (0.0-0.2) 10^3/uL 0.07 PT (9.1-11.1) sec 10.3 INR (0.9-1.1) 1.0 Sodium (136-145) mmol/L 140 Potassium (3.5-5.1) mmol/L 3.9 Chloride (98-107) mmol/L 104 Carbon Dioxide (21.0-32.0) mmol/L 27.7 Anion Gap (3-11) mmol/L 8.3 BUN (7-18) mg/dL 10 Creatinine (0.55-1.02) mg/dL 0.7 Est GFR (CKD-EPI 2020) (mL/min/1.73m2) 90.70 Glucose (74-106) mg/dL 105 Calcium (8.5-10.1) mg/dL 9.3 Total Bilirubin (0.2-1.0) mg/dL 0.53 AST (15-37) U/L 23 ALT (14-59) U/L 28 Alkaline Phosphatase (46-116) U/L 98 Total Protein (6.4-8.2) g/dL 7.9 Albumin (3.4-5.0) g/dL 3.7 Lipase (16-77) U/L 12 L Urine Color (Yellow) Yellow Urine Clarity (Clear) Clear Urine pH (5-8) 6.0 Ur Specific Arnold (1.005-1.025) <= 1.005 Urine Protein (Neg-Trace) mg/dL Negative Urine Ketones (Negative) mg/dL Negative Urine Blood (Negative) Negative Urine Nitrite (Negative) Negative Urine Bilirubin (Negative) Negative Urine Urobilinogen (Up to 0.2) mg/dL 0.2 Ur Leukocyte Esterase (Negative) Trace H Urine RBC (0-2) HPF Negative Urine WBC (0-5) HPF 5-10 Ur Epithelial Cells (Negative) HPF Few Urine Crystals (Negative) HPF Negative Urine Bacteria (Negative) HPF Rare Urine Casts (Negative) LPF Negative Urine Mucus (Negative) Negative Ur Culture Indicated? No Urine Glucose (Negative) mg/dL Negative ABO/Rh O Positive Antibody Screen NEGATIVE Medical Decision Making 73-year-old female in no acute distress with benign abdominal exam, CT was ordered given age and medical history, does not show evidence of acute abnormality. Diagnostic labs are reassuring including CBC, chemistry, and urinalysis, no evidence of obvious infection. Patient does have tinea corporis, will treat with nystatin at home. Recheck with primary care physician on Sunday. Return precautions reviewed and patient expressed understanding. Ambulatory with steady gait, discharged home Quality:SDOH Health Related Social Needs: Health related social needs transportation insecurity( Z59.82) Health related social needs details pt with developmen luis maryam, lives alone, unable to comprehend difficult medical concepts, limited reading. PFSH All Active Problems (Updated 04/12/24 @ 21:00 by ADAMARIS Bhatti) Tinea corporis (Acute) Abdominal pain (Acute) Social isolation (Acute) Goals of care, counseling/discussion (Acute) Carpal tunnel syndrome (Acute) Urinary, incontinence, stress female (Acute 04/02/13) Hair loss (Acute) Lives alone with help available (Acute) NO DPOA yet; ? state guardian?-pt. confirmed no on both as of 02/21/23 CHI (closed head injury) (Acute) Polypharmacy (Acute) At increased risk for social isolation (Acute) Low energy (Acute) Advance care planning (Acute) Impaired instrumental activities of daily living (Acute) Palliative care patient (Acute) Anemia (Chronic) Diverticulosis (Acute) Learning disability (Chronic) manages her own medications DNR (do not resuscitate) (Chronic) DNI (do not intubate) (Chronic) Constipation (Chronic) Financial difficulties (Chronic) Illiterate (Chronic) able to manage independently Abnormal CT scan (Acute) Family history of colon cancer (Acute) Diarrhea (Acute) Hypochromic microcytic anemia (Acute) Cough (Acute) Knee pain (Acute) Fatigue (Acute) Medical History COPD (chronic obstructive pulmonary disease) Learning disability Chronic low back pain GERD (gastroesophageal reflux disease) Sleep disorder Anxiety Vertigo Onychomycosis Eczema Benign essential tremor Diabetes mellitus HTN (hypertension) Neoplasm of skin (12/29/13) Hyperlipidemia (04/02/13) Depression (04/02/13) Restless legs takes Premapaxil Surgical History H/O arthroscopy of left knee (~01/2007) History of colonoscopy (~02/22/23) Oophrectomy, Both (04/09/13) laparotomy. aoc and kk. Abdominal hysterectomy (~1979) for heavy bleeding. Cholecystectomy laparoscopic 03/2011 Extraction of cataract in [place] Arthroplasty of knee L knee Dr Fuentes bladder suspension for incontinence Family History Sister Heart disease Son Parent-child estrangement nec Under care of longterm service life sentence for murder Daughter Parent-child estrangement nec Substance abuse Other Family history of colorectal cancer Social History Smoking/Tobacco Use Status: Never Smoking risk assessment performed?: Yes Alcohol Intake: former Drug use: Never Substance use type: does not use Caregiver/Support person: No Household members: none Housing: apartment Number of Children: 0 Communication Needs: Cannot Read Education Level: middle school Details: finished 6th grade only Do you need help understanding health information?: Always current occupation: always disabled; worked as [employer] for 5 years in her late teens, early 20s Pets and animals: No Current gender identity: female What is your relationship status?: How often do you talk on the phone with friends or family?: never How often do you get together with friends or relatives?: never Panel score (0-1 are the most socially isolated patients): 0 What type of physical activity do you participate in: walking and irregular exercise Duration: < 15 minutes/day Frequency: 1-2 times per week Special pankaj needs: No Agree to transfusion: Yes Seatbelt use: always Drive intox or ride w/intox 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
--- NOTE | 2024-04-12 20:37 | DI.VRAD_ITS ---
PROCEDURE INFORMATION: Exam: CT Abdomen And Pelvis With Contrast Exam date and time: 04/12/2024 6:06 PM Age: 73 years old Clinical indication: Other: Abdominal pain, constipation TECHNIQUE: Imaging protocol: Computed tomography of the abdomen and pelvis with contrast. Contrast material: 350; Contrast volume: 85 ml; Contrast route: INTRAVENOUS (IV); COMPARISON: CT ABDOMEN PELVIS W 01/16/2024 9:16 PM FINDINGS: Diaphragm: There is a small hiatal hernia. Liver: There is hepatic steatosis. Gallbladder and biliary ducts: Cholecystectomy. Cholecystectomy. Pancreas: Normal. No ductal dilation. Spleen: Normal. No splenomegaly. Adrenal glands: Normal. No mass. Kidneys and ureters: 0.9 cm cyst in the left lateral mid kidney. There is a 1.4 cm cyst in the left upper pole kidney. There is a 0.5 cm left upper pole cortical calcification along the wall of the cyst. No hydronephrosis or renal mass. Stomach and bowel: There is fluid noted throughout the large bowel without significant mucosal thickening. There are scattered foci of diverticulosis in the sigmoid colon. Appendix: No evidence of appendicitis. Intraperitoneal space: No free air. No significant fluid collection. Vasculature: No abdominal aortic aneurysm. Lymph nodes: No enlarged lymph nodes. Urinary bladder: Unremarkable as visualized. Reproductive: Unremarkable as visualized. Bones/joints: No acute fracture. Soft tissues: Unremarkable. IMPRESSION: 1. There is liquid stool noted throughout the large bowel suspicious of mild gastroenteritis or mild enterocolitis. There is no significant mucosal thickening of the large bowel or pericolonic stranding. 2. Diverticuli of the sigmoid colon without definite acute inflammation. 3. No intra-abdominal abscess or free air. 4. Cholecystectomy. Dictated and Authenticated by: Carroll Portillo MD. Ordering:BOOM Bailey MD
== END 2024-04-12 22:18 | disposition home or self-care (01) ==
PROVIDERS: Emergency Provider Physician Assistant; PCP Nurse Practitioner Family
DX: K59.00 Constipation, unspecified (principal); R10.9 Unspecified abdominal pain; B35.4 Tinea corporis; J44.9 Chronic obstructive pulmonary disease, unspecified; I10 Essential (primary) hypertension; E78.5 Hyperlipidemia, unspecified; E11.9 Type 2 diabetes mellitus without complications; Z90.49 Acquired absence of other specified parts of digestive tract; Z90.710 Acquired absence of both cervix and uterus; Z79.84 Long term (current) use of oral hypoglycemic drugs
CPT/HCPCS: 80053; 83690; 86850; 86900; 86901; 99285; 74177; 81003; 81015; 85025; 85610; 99284; J3490

== ENCOUNTER 2024-07-20 18:50 | Emergency (ER) | payer MEDICARE, MEDICAID, SELFPAY ==
--- NOTE | 2024-07-20 18:45 | RT.EKG_ITS ---
APPROVED REPORT Exam: Resting ECG Reason for Exam: SOB over 45 Patient Location: E HR:79 bpm ECG Measurements Heart Rate 79 AXIS WI 218 P -3 QRSd 78 QRS 69 QT 376 T -14 QTc 432 Conclusion Sinus rhythm, rate 79 No interval abnormalities T wave inversion III, aVF, new from EKG 1 year prior No STEMI
[2024-07-20 18:53] VITALS: BP 162/100; PULSE 89; RESP 16; TEMP 36.9; O2SAT 98
--- NOTE | 2024-07-20 19:00 | DI.CT_ITS ---
Exam(s) CT ABDOMEN PELVIS W EXAM: CT ABDOMEN PELVIS W CLINICAL HISTORY: RUQ and RLQ abd pain. TECHNIQUE: Imaging Protocol: Axial computed tomography images with coronal and sagittal reformatted images were created and reviewed CONTRAST MATERIAL: Intravenous: Omnipaque-350 75cc Oral: None COMPARISON: CT CT ABDOMEN PELVIS W from 04/12/2024 FINDINGS: VISUALIZED LUNG BASES: No nodules nor pleural effusions evident. ABDOMEN: There is no ascites. LIVER: There are no focal hepatic lesions evident. No dilated intrahepatic ducts. GALLBLADDER/BILIARY: Gallbladder is again noted be surgically absent. CBD is not dilated. PANCREAS: No evidence of pancreatic mass nor dilatation of the pancreatic duct. SPLEEN: Spleen is not enlarged. No obvious intrasplenic lesions. Splenic and portal veins are paten t. ADRENALS: There are no significant adrenal masses. KIDNEYS:Partially calcified cyst in the superior pole region of the left kidney is again noted, uncha nged in appearance and size. No new significant kidney findings. No hydronephrosis. No hydroureter .. ABDOMINAL AORTA: Abdominal aorta is calcified but not enlarged. Also no iliac artery aneurysms. LYMPH NODES:There is no retroperitoneal nor paraaortic adenopathy. ABDOMINAL WALL: No evidence of significant anterior abdominal wall nor inguinal hernia. GI: There is no evidence of bowel obstruction, free air, nor abscess. PELVIS: GI: Appendix is again noted be surgically absent.There are multiple diverticuli noted in the left ilya e of the colon as well as in the sigmoid. There is no obvious evidence of acute diverticulitis. LYMPH NODES: There is no intrapelvic nor inguinal adenopathy. REPRODUCTIVE: Uterus is surgically absent. There are no abnormal adnexal masses. URINARY BLADDER: No calculi nor obvious masses evident OSSEOUS: No fractures and no significant osseous lesions. IMPRESSION: 1. Compared to CT scan of 04/12/2024 there is again noted evidence of prior cholecystectomy, appendec kem, and hysterectomy. 2. There is diverticulosis of the left side of the colon and sigmoid without evidence of obvious acut e diverticulitis. There is some motion artifact here. 3. No evidence of bowel obstruction, free air, nor abscess. No ascites evident. 4. Unchanged benign-appearing partially calcified 2 cm cyst in the superior pole the left kidney. RADIATION DOSE DELIVERED: 480.36mGy.cm Total DLP DATA REPOSITORY: All CT scans at this facility are submitted to the National Radiology Data Registry (NRDR) Dose Index Registry (DIR) with the [employer] (ACR). RADIATION OPTIMIZATION: All CT scans at this facility use at least one of these dose optimization te chniques: automated exposure control; mA and/or kV adjustment per patient size (includes targeted exa ms where dose is matched to clinical indication); or iterative reconstruction.
[2024-07-20 19:02] VITALS: RESP 16
[2024-07-20 19:03] VITALS: RESP 16
[2024-07-20 19:21] LABS: Abs Immature Grans 0.02 10^3/uL (0.0-0.06); Absolute Basophil Count 0.05 10^3/uL (0.0-0.2); Absolute Eosinophil Count 0.07 10^3/uL (0.0-0.7); Absolute Lymphocyte Count 0.62 10^3/uL (1.2-3.4); Absolute Monocyte Count 1.02 10^3/uL (0.1-0.8); Absolute Neutrophil Count 4.71 10^3/uL (1.2-6.7); Basophils % 0.8 %; Eosinophils % 1.1 %; HCT 35.6 % (36.0-46.0); HGB 11.5 g/dL (11.2-15.7); Immature Grans % 0.3 %; Lymphocytes % 9.6 %; MCHC 32.3 % (32.0-36.0); MCV 84 fL (80-95); MPV 9.1 fL (8.0-11.0); Monocytes % 15.7 %; Neutrophils % 72.5 %; Platelet Count 174 10^3/uL (130-400); RBC 4.26 10^6/uL (3.93-5.22); RDW 13.3 % (11.7-14.6); RDW-SD 40.8 fL; WBC 6.49 10^3/uL (4.4-10.8)
[2024-07-20] MEDS: Omnipaque 350 MG/ML 100 ML BTL IJ (19:37)
[2024-07-20] MEDS: Normal Saline Flush 10 ML SYR IVP (19:38)
[2024-07-20 19:39] LABS: ALT 22 U/L (14-59); AST 17 U/L (15-37); Albumin 3.7 g/dL (3.4-5.0); Alkaline Phosphatase 94 U/L (46-116); Anion Gap 4.5 mmol/L (3-11); BUN 14 mg/dL (7-18); Bilirubin, Total 0.41 mg/dL (0.2-1.0); CO2 31.5 mmol/L (21.0-32.0); CREATININE 0.7 mg/dL (0.55-1.02); Calcium 9.1 mg/dL (8.5-10.1); Chloride 99 mmol/L (98-107); Estimated GFR 90.14 (mL/min/1.73m2); Glucose 114 mg/dL (74-106); Lipase 18 U/L (<78); Magnesium 1.5 mg/dL (1.8-2.4); Potassium 3.9 mmol/L (3.5-5.1); Sodium 135 mmol/L (136-145); Total Protein 7.2 g/dL (6.4-8.2)
[2024-07-20] MEDS: Normal Saline - Diluent 50 ML VIAL IJ (19:39)
[2024-07-20 19:48] LABS: TSH (W/Ref FT4) 1.75 uIU/mL (0.36-3.74)
[2024-07-20 19:49] LABS: Troponin I < 4 ng/L (<or=51)
--- NOTE | 2024-07-20 20:11 | ED.GENADUL_ITS ---
Discharge Plan Disposition Patient Disposition: Home Discharge Details Clinical Impression: Abdominal pain, Cyst of left kidney Primary Care Provider: Sue Lopez ED Provider: Lynn Milian Home Meds and New Rx's Prescriptions: Continued quetiapine 100 mg tablet 150 mg PO HS (DME) Aerochbenitoer MV Spacer See Rx Instructions .ROUTE .MEDSUPPLY Qty: 1 0RF Rx Instructions: As directed Excedrin Extra Strength 250-250-65 mg tablet 1 tab PO QDAY PRN bisacodyl 5 mg tablet 5 mg PO DAILY PRN docusate sodium [Colace] 100 mg capsule 100 mg PO QDAY PRN (Reason: constipation) Qty: 60 0RF Rx Instructions: Take 1 tab daily only if no bowel movement in 2 days, per bowel log polyethylene glycol 3350 17 gram/dose powder 17 g PO DAILY PRN (Reason: constipation) Qty: 119 0RF Rx Instructions: Use only if no bowels in 4 days glyburide-metformin 5-500 mg tablet 1 tab PO BID pantoprazole 40 MG tablet,delayed release (DR/EC) 40 mg PO DAILY budesonide-formoterol [Symbicort] 160-4.5 mcg/actuation HFA aerosol inhaler 1 puff INHALATION BID Patient Comments: INHALE 1 PUFF BY MOUTH TWO TIMES A DAY Spiriva Respimat 1.25 mcg/actuation mist 2 puff INHALATION DAILY Patient Comments: INHALE TWO PUFFS BY MOUTH EVERY DAY ferrous gluconate 324 mg (37.5 mg iron) tablet 324 mg PO DAILY Patient Comments: TAKE ONE TABLET BY MOUTH EVERY DAY nystatin [Klayesta] 100,000 unit/gram powder 1 applic topical BID Qty: 60 0RF Rx Instructions: apply to abdominal folds and umbilicus calcium carbonate-vitamin D3 1 EACH tablet 1 ea PO BID losartan 50 mg tablet 25 mg PO DAILY Patient Comments: TAKE ONE TABLET BY MOUTH EVERY DAY propranolol 40 mg tablet 40 mg PO BID Patient Comments: TAKE ONE TABLET BY MOUTH TWICE A DAY albuterol sulfate 90 mcg/actuation aerosol powdr breath activated 2 inh inhalation Q4H PRNQty: 1 0RF polyethylene glycol 3350 [ClearLax] 17 gram/dose powder 17 g PO DAILY PRN Discharge Instructions Instructions: Abdominal Pain, Adult ED Additional Instructions: please follow-up with regarding renal cyst Take Tylenol as needed for pain Follow-up with your primary care physician next week for reassessment on Sunday Please return earlier should you have new or worsening complaints Your magnesium is slightly low, have given you supplementation today, please follow-up with your doctor regarding this finding Referrals: Sue Lopez [Primary Care Provider] - HPI General Date/Time Provider Initiated Documentation: 07/20/24 19:02 . HPI Narrative: This 74-year-old female with history of social insulation, palliative care, anemia developmental delay, constipation presents with report of I just do not feel good . When asked additionally, she states that her stomach hurts. She states she had a bowel movement yesterday has not yet had a bowel movement today. She denies any nausea or vomiting. She states she feels anxious denies any additional complaints at this time. She denies any injuries. Denies any blood in stool or fever or chills. Related Data Home Medications ?Medication ?Instructions ?Recorded ?Confirmed pantoprazole 40 mg tablet,delayed 40 mg PO DAILY 02/20/13 07/20/24 release calcium 600 mg (as 1 ea PO BID 10/10/17 07/20/24 carbonate)-vitamin D3 10 mcg (400 unit) tablet quetiapine 100 mg tablet 150 mg PO HS 10/18/20 07/20/24 inhalational spacing device #1 ea 06/17/21 07/20/24 (Aerochamber MV spacer) albuterol sulfate 90 mcg/actuation 2 inh inhalation Q4H PRN #1 ea 08/22/21 0 07/20/24 breath activated powder inhaler propranolol 40 mg tablet 40 mg PO BID 08/22/21 07/20/24 losartan 50 mg tablet 25 mg PO DAILY 12/12/22 07/20/24 glyburide 5 mg-metformin 500 mg 1 tab PO BID 02/01/23 07/20/24 tablet budesonide-formoterol HFA 160 1 puff inhalation BID 07/10/23 07/20/24 mcg-4.5 mcg/actuation aerosol inhaler (Symbicort) ferrous gluconate 324 mg (37.5 mg 324 mg PO DAILY 07/10/23 07/20/24 iron) tablet tiotropium bromide 1.25 2 puff inhalation DAILY 07/10/23 07/20/24 mcg/actuation mist for inhalation (Spiriva Respimat) polyethylene glycol 3350 17 17 g PO DAILY PRN 01/27/24 07/20/24 gram/dose oral powder (ClearLax) uvmqkwe-bnpycgtqbnnvi-kzhjqgam 250 1 tab PO QDAY PRN 03/11/24 07/20/24 mg-250 mg-65 mg tablet (Excedrin Extra Strength) bisacodyl 5 mg tablet 5 mg PO DAILY PRN 03/11/24 07/20/24 docusate sodium 100 mg capsule 100 mg PO QDAY PRN constipation 03/14/24 07/20/24 (Colace) #60 caps polyethylene glycol 3350 17 17 g PO DAILY PRN constipation 03/14/24 07/20/24 gram/dose oral powder #119 grams nystatin 100,000 unit/gram topical 1 applic topical BID #60 grams 04/12/24 07/20/24 powder (Klayesta) Previous Rx's ?Medication ?Instructions ?Recorded inhalational spacing device #1 ea 06/17/21 (Aerochamber MV spacer) albuterol sulfate 90 mcg/actuation 2 inh inhalation Q4H PRN #1 ea 08/22/21 breath activated powder inhaler docusate sodium 100 mg capsule 100 mg PO QDAY PRN constipation 03/14/24 (Colace) #60 caps polyethylene glycol 3350 17 17 g PO DAILY PRN constipation 03/14/24 gram/dose oral powder #119 grams nystatin 100,000 unit/gram topical 1 applic topical BID #60 grams 04/12/24 powder (Klayesta) Allergies Allergy/AdvReac Type Severity Reaction Status Date / Time thiopental sodium (From Allergy Skin Rash Verified 07/20/24 18:58 Pentothal) General Stated Complaint: GenMedical LYNNETTE: 3 Exam Narrative Exam Narrative: 74-year-old female alert oriented and at cognitive baseline, pupils equal round reactive to light and accommodation, moist mucous membranes, lungs clear to auscultation, abdomen with some mild tenderness to right upper quadrant and right lower quadrant, cardiac rate rhythm regular, no rebound or guarding, no CVA tenderness, ambulatory with steady gait Course Vital Signs Vital signs: Vital Signs Temperature 36.9 C 07/20/24 18:53 Pulse 89 07/20/24 18:53 Respiratory Rate 16 07/20/24 18:53 Blood Pressure 162/100 H 07/20/24 18:53 Pulse Oximetry 98 07/20/24 18:53 Temperature 36.9 C 07/20/24 18:53 Temperature Source Tympanic 07/20/24 18:53 Pulse 89 07/20/24 18:53 Respiratory Rate 16 07/20/24 19:03 Respiratory Effort Normal, Non-Labored 07/20/24 19:03 Respiratory Depth Normal 07/20/24 19:03 Respiratory Pattern Normal 07/20/24 19:03 Blood Pressure 162/100 H 07/20/24 18:53 Pulse Oximetry 98 07/20/24 18:53 Oxygen Delivery Method Room Air 07/20/24 18:53 Oxygen Flow Rate 0 07/20/24 18:53 Lab/Test Results Lab/Test Results: Laboratory Tests Range/Units 07/20/24 19:09 WBC (4.4-10.8) 10^3/uL 6.49 RBC (3.93-5.22) 10^6/uL 4.26 Hgb (11.2-15.7) g/dL 11.5 Hct (36.0-46.0) % 35.6 L MCV (80-95) fL 84 MCH (27.0-33.0) pg 27.0 MCHC (32.0-36.0) % 32.3 RDW (11.7-14.6) % 13.3 Plt Count (130-400) 10^3/uL 174 MPV (8.0-11.0) fL 9.1 Immature Gran % % 0.3 Neutrophils % % 72.5 Lymphocytes % % 9.6 Monocytes % % 15.7 Eosinophils % % 1.1 Basophils % % 0.8 Nucleated RBC % (0.0-0.3) % 0.0 Absolute Neutrophils (1.2-6.7) 10^3/uL 4.71 Absolute Lymphocytes (1.2-3.4) 10^3/uL 0.62 L Absolute Monocytes (0.1-0.8) 10^3/uL 1.02 H Absolute Eosinophils (0.0-0.7) 10^3/uL 0.07 Absolute Basophils (0.0-0.2) 10^3/uL 0.05 Sodium (136-145) mmol/L 135 L Potassium (3.5-5.1) mmol/L 3.9 Chloride (98-107) mmol/L 99 Carbon Dioxide (21.0-32.0) mmol/L 31.5 Anion Gap (3-11) mmol/L 4.5 BUN (7-18) mg/dL 14 Creatinine (0.55-1.02) mg/dL 0.7 Est GFR (CKD-EPI 2020) (mL/min/1.73m2) 90.14 Glucose (74-106) mg/dL 114 H Calcium (8.5-10.1) mg/dL 9.1 Magnesium (1.8-2.4) mg/dL 1.5 L Total Bilirubin (0.2-1.0) mg/dL 0.41 AST (15-37) U/L 17 ALT (14-59) U/L 22 Alkaline Phosphatase (46-116) U/L 94 Troponin I (<or=51) ng/L < 4 Total Protein (6.4-8.2) g/dL 7.2 Albumin (3.4-5.0) g/dL 3.7 Lipase (<78) U/L 18 TSH (0.36-3.74) uIU/mL 1.75 Medical Decision Making 74-year-old female presenting with EMS for abdominal pain. Exam with some right lower quadrant tenderness, no rebound or guarding. CT per radiology interpretation my review does not show significant acute abnormality. Right renal cyst which patient will need follow-up with her primary care physician regarding, urinalysis will need recheck by primary care physician for blood, no evidence of urinary tract infection, mild hypomagnesemia at 1.5, supplemented with 800 of magnesium oxide in the emergency department. Remainder of CBC and CMP are reassuring. Patient encouraged to follow-up with primary care physician next week, given IV Tylenol and pain-free at time of reassessment. 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 Quality:SDOH Health Related Social Needs: Health related social needs details pt with developmen luis delay, lives alone, unable to comprehend difficult medical concepts, limited reading. PFSH All Active Problems (Updated 07/20/24 @ 20:51 by ADAMARIS Bhatti) Cyst of left kidney (Acute) Abdominal pain (Acute) Social isolation (Acute) Goals of care, counseling/discussion (Acute) Carpal tunnel syndrome (Acute) Urinary, incontinence, stress female (Acute 04/02/13) Hair loss (Acute) Lives alone with help available (Acute) NO DPOA yet; ? state guardian?-pt. confirmed no on both as of 02/21/23 CHI (closed head injury) (Acute) Polypharmacy (Acute) At increased risk for social isolation (Acute) Low energy (Acute) Advance care planning (Acute) Impaired instrumental activities of daily living (Acute) Palliative care patient (Acute) Anemia (Chronic) Diverticulosis (Acute) Learning disability (Chronic) manages her own medications DNR (do not resuscitate) (Chronic) DNI (do not intubate) (Chronic) Constipation (Chronic) Financial difficulties (Chronic) Illiterate (Chronic) able to manage independently Abnormal CT scan (Acute) Family history of colon cancer (Acute) Diarrhea (Acute) Hypochromic microcytic anemia (Acute) Cough (Acute) Knee pain (Acute) Fatigue (Acute) Medical History COPD (chronic obstructive pulmonary disease) Learning disability Chronic low back pain GERD (gastroesophageal reflux disease) Sleep disorder Anxiety Vertigo Onychomycosis Eczema Benign essential tremor Diabetes mellitus HTN (hypertension) Neoplasm of skin (12/29/13) Hyperlipidemia (04/02/13) Depression (04/02/13) Restless legs takes Premapaxil Surgical History H/O arthroscopy of left knee (~01/2007) History of colonoscopy (~02/22/23) Oophrectomy, Both (04/09/13) laparotomy. aoc and kk. Abdominal hysterectomy (~1979) for heavy bleeding. Cholecystectomy laparoscopic 03/2011 Extraction of cataract in [place] Arthroplasty of knee L knee Dr Fuentes bladder suspension for incontinence Family History Sister Heart disease Son Parent-child estrangement nec Under care of long term service life sentence for murder Daughter Parent-child estrangement nec Substance abuse Other Family history of colorectal cancer Social History Smoking/Tobacco Use Status: Never Smoking risk assessment performed?: Yes Alcohol Intake: former Drug use: Never Substance use type: does not use Caregiver/Support person: No Household members: none Housing: apartment Number of Children: 0 Communication Needs: Cannot Read Education Level: middle school Details: finished 6th grade only Do you need help understanding health information?: Always current occupation: always disabled; worked as [employer] for 5 years in her late teens, early 20s Pets and animals: No Current gender identity: female What is your relationship status?: How often do you talk on the phone with friends or family?: never How often do you get together with friends or relatives?: never Panel score (0-1 are the most socially isolated patients): 0 What type of physical activity do you participate in: walking and irregular exercise Duration: < 15 minutes/day Frequency: 1-2 times per week Special pankaj needs: No Agree to transfusion: Yes Seatbelt use: always Drive intox or ride w/intox experienced truck driver: No Water heater temp set <120 deg: Yes Working smoke detector in home: Yes Firearms in home: No Do you feel safe at home: Yes Do you feel safe in your relationship?: Yes Additional Social history: Lives at [facility], per pt.
[2024-07-20 20:14] VITALS: BP 154/90; PULSE 84; RESP 16; O2SAT 98
[2024-07-20] MEDS: ACETAMINOPHEN 500 MG/50 ML BAG 200 MG IVPB (20:16)
--- NOTE | 2024-07-20 20:41 | DI.VRAD_ITS ---
PROCEDURE INFORMATION: Exam: CT Abdomen And Pelvis With Contrast Exam date and time: 07/20/2024 7:46 PM Age: 74 years old Clinical indication: Other: Ru and rlq pain TECHNIQUE: Imaging protocol: Computed tomography of the abdomen and pelvis with contrast. Contrast material: 350; Contrast volume: 75 ml; Contrast route: INTRAVENOUS (IV); COMPARISON: CT ABDOMEN PELVIS W 04/12/2024 6:06 PM FINDINGS: Limitations: Motion artifact. Liver: Normal appearing liver. Gallbladder and biliary ducts: Prior cholecystectomy. No biliary dilatation. Pancreas: Moderate atrophy of the pancreas. Spleen: Normal appearing spleen. Adrenal glands: Normal appearing adrenal glands. Kidneys and ureters: 1.8 cm left renal cyst measuring 3.2 Hounsfield units density on image 71 of series 12 with coarse marginal calcification. Additional smaller indeterminate intermediate density and hypoattenuating renal lesions, not well characterized by today's exam. No hydronephrosis. No obstructing ureteral stones. Stomach and bowel: No oral contrast. Stomach partially distended with fluid and ingested material. No small bowel dilatation to suggest obstruction. Normal-appearing fecal material and gas in the cecum, ascending colon, and transverse colon. Downstream colon well evacuated and collapsed. Apparent mural thickening through the collapsed well evacuated descending and sigmoid colon. Artifact of incomplete distension? Acute segmental colitis ? Clinical correlation recommended. Diverticulosis through the distal descending and sigmoid segments. No convincing evidence of diverticulitis. Normal-appearing fecal material in the rectum. Appendix: Appendix not identified, obscured if present. Correlation with surgical history recommended. If there is clinical concern for acute appendicitis and the patient still has an appendix, additional evaluation would be recommended. Intraperitoneal space: No gross ascites or free air. Vasculature: No abdominal aortic aneurysm. Lymph nodes: No pathologically enlarged mesenteric, retroperitoneal, or pelvic sidewall lymph nodes. Urinary bladder: Normal-appearing urinary bladder, moderately distended. Reproductive: Prior hysterectomy. Ovaries not identified, obscured if present. Correlation with surgical history recommended. Bones/joints: No acute fracture seen among the bones of the abdomen or pelvis. Spinal degenerative change with large anterior osteophytes at several levels. Congenital lumbar stenosis. Multilevel central canal narrowing and neural foraminal narrowing. Soft tissues: Mild prominence of the perirectal veins suggesting probable hemorrhoids. IMPRESSION: Apparent mural thickening through the collapsed well evacuated descending and sigmoid colon. Artifact of incomplete distension or acute segmental colitis could have this appearance. Clinical correlation is recommended. Diverticulosis through the descending and sigmoid segments but no convincing evidence of acute diverticulitis. Dictated and Authenticated by: Chavez Ramos MD. Ordering:BOOM Bailey MD
[2024-07-20 20:44] VITALS: BP 151/40; PULSE 84; RESP 16; TEMP 36.5; O2SAT 98
[2024-07-20] MEDS: Magnesium Oxide 400 MG TAB 800 MG PO (20:48)
[2024-07-20 21:12] LABS: Bilirubin Negative (Negative); Blood Trace-lysed (Negative); Clarity Clear (Clear); Glucose Negative (Negative); Ketones Negative (Negative); Leukocyte Esterase Negative (Negative); Nitrite Negative (Negative); Specific Gravity <= 1.005 (1.005-1.025); Urobilinogen 0.2 mg/dL (Up to 0.2)
[2024-07-20 21:16] LABS: Bacteria Rare HPF (Negative); C & S Indicated? No; Casts Negative LPF (Negative); Crystals Negative HPF (Negative); Epithelial Cells Rare HPF (Negative); Mucus Negative (Negative); RBC 0-2 HPF (0-2)
--- NOTE | 2024-07-20 21:23 | NUR.NOTE ---
Pt waiting to be discharged, unable to find a ride home, attempted to contact Danyel listed in her Contacts as next of kin, there was no answer and I am unable to leave a message at the number listed, [facility]J
[2024-07-20] MEDS: Melatonin 3 MG TAB PO (23:21)
== END 2024-07-21 06:12 | disposition home or self-care (01) ==
PROVIDERS: Emergency Provider Physician Assistant; PCP Nurse Practitioner Family
DX: R10.31 Right lower quadrant pain (principal); R53.81 Other malaise; J44.9 Chronic obstructive pulmonary disease, unspecified; E11.9 Type 2 diabetes mellitus without complications; I10 Essential (primary) hypertension; E78.5 Hyperlipidemia, unspecified; Z79.84 Long term (current) use of oral hypoglycemic drugs
CPT/HCPCS: 80053; 83690; 93005; 74177; 81003; 81015; 83735; 84443; 84484; 85025; 93010; J0131; J3490

== ENCOUNTER 2024-07-24 19:05 | Emergency (ER) | payer MEDICARE, MEDICAID, SELFPAY ==
[2024-07-24 19:12] VITALS: BP 135/68; PULSE 73; RESP 18; TEMP 36.6; O2SAT 98
--- NOTE | 2024-07-24 19:15 | DI.RAD_ITS ---
Exam(s) XR CHEST 2V PA LATERAL EXAM: XR CHEST 2V PA LATERAL CLINICAL HISTORY: Eval PNA. TECHNIQUE: 2D digital imaging was performed. COMPARISON: CR,XR XR CHEST 2V PA LATERAL from 07/14/2023 FINDINGS: 2 views: Heart size is normal. The mediastinum is not widened. Lungs are clear. No infiltrates nor pleural effusions. IMPRESSION: No acute pulmonary findings. DATA REPOSITORY: RADIATION DOSE DELIVERED:
--- NOTE | 2024-07-24 19:28 | ED.GENADUL_ITS ---
Discharge Plan Disposition Patient Disposition: Home Condition: Stable Discharge Details Clinical Impression: Viral upper respiratory infection, Impaired instrumental activities of daily living, At increased risk for social isolation, Contusion Primary Care Provider: Sue Lopez ED Provider: Zabrina Worrell Home Meds and New Rx's Prescriptions: No Action quetiapine 100 mg tablet 150 mg PO HS (DME) 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 See Rx Instructions .ROUTE .MEDSUPPLY Qty: 1 0RF Rx Instructions: As directed Excedrin Extra Strength 250-250-65 mg tablet 1 tab PO QDAY PRN bisacodyl 5 mg tablet 5 mg PO DAILY PRN docusate sodium [Colace] 100 mg capsule 100 mg PO QDAY PRN (Reason: constipation) Qty: 60 0RF Rx Instructions: Take 1 tab daily only if no bowel movement in 2 days, per bowel log polyethylene glycol 3350 17 gram/dose powder 17 g PO DAILY PRN (Reason: constipation) Qty: 119 0RF Rx Instructions: Use only if no bowels in 4 days glyburide-metformin 5-500 mg tablet 1 tab PO BID pantoprazole 40 MG tablet,delayed release (DR/EC) 40 mg PO DAILY budesonide-formoterol [Symbicort] 160-4.5 mcg/actuation HFA aerosol inhaler 1 puff INHALATION BID Patient Comments: INHALE 1 PUFF BY MOUTH TWO TIMES A DAY Spiriva Respimat 1.25 mcg/actuation mist 2 puff INHALATION DAILY Patient Comments: INHALE TWO PUFFS BY MOUTH EVERY DAY ferrous gluconate 324 mg (37.5 mg iron) tablet 324 mg PO DAILY Patient Comments: TAKE ONE TABLET BY MOUTH EVERY DAY nystatin [Klayesta] 100,000 unit/gram powder 1 applic topical BID Qty: 60 0RF Rx Instructions: apply to abdominal folds and umbilicus calcium carbonate-vitamin D3 1 EACH tablet 1 ea PO BID losartan 50 mg tablet 25 mg PO DAILY Patient Comments: TAKE ONE TABLET BY MOUTH EVERY DAY propranolol 40 mg tablet 40 mg PO BID Patient Comments: TAKE ONE TABLET BY MOUTH TWICE A DAY albuterol sulfate 90 mcg/actuation aerosol powdr breath activated 2 inh inhalation Q4H PRNQty: 1 0RF polyethylene glycol 3350 [ClearLax] 17 gram/dose powder 17 g PO DAILY PRN Discharge Instructions Instructions: Preventing Falls ED Additional Instructions: You were seen in the emergency department today for evaluation of bodyaches, stuffy nose, and cough. In our department you had a physical examination pe rformed, and had an x-ray of your chest that did not show any sign of pneumonia. You do have some bruising that looks to be at least several days old and an abrasion to your hand and your elbow, which is likely from a fall. You can continue to use Tylenol and ibuprofen to manage any pain, and ice or heat, whichever makes it feel nicer. You will be contacted with the results of your viral swab if it is positive. If it is negative, there is still a high likelihood that you have an infection with a virus, just not 1 we can test for. Please maintain good hydration and nutrition, use cough drops or tea with honey to manage your symptoms. You need to follow-up with your primary care provider to discuss your recent falls, and for reevaluation of any symptoms that change, worsen, or persist. Thank you for allowing us to be part of your care HPI General Mode of arrival: ambulatory . Date/Time Provider Initiated Documentation: 07/24/24 19:07 . Limitations to Documentation: no limitations . Information obtained by: patient, family and old records reviewed . HPI Narrative: HPI: This is a 74-year-old female patient with a past medical history significant for difficulty with ADLs, anemia, diabetes, who is presenting for evaluation of cough and bodyaches. 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 She reports that she is not bringing anything up with the cough, no reported fever, states that she has had a low appetite today but has not had nausea, vomiting, or diarrhea. She denies chest and abdominal pain, states that she tried to go to urgent care and was sent here for further evaluation. Exam: Gen: Awake and alert, in no apparent distress HEENT: Non-icteric sclera Neck: Supple Lungs: No apparent respiratory distress, normal respiratory effort. Lung sounds clear and equal bilaterally without wheezes, rhonchi, rales CV: Appears well perfused, heart with regular rate and rhythm, no murmurs auscultated Abdomen: Non-distended, soft, nontender, without rigidity, rebound, or guarding MSK: Moves 4 extremities without apparent limitation in ROM. No peripheral edema the patient does have a bruise noted across her right lower flank/upper hip region, yellowed and fading, appears to be several days old. Skin: Visualized skin without rashes, cyanosis. Small abrasion to her right pinky, in early stages of healing, and an abrasion to her right elbow that appears of similar age. Neuro: Normal Gait, no obvious focal deficits or facial asymmetry. Speaks in full, clear sentences. Psych: Appropriate for situation. MDM: This is a 74-year-old female patient presenting for evaluation of cough and bodyaches. My differential includes but is not limited to viral URI, pneumonia, bronchitis, certainly considered other infectious abnormalities such as UTI. The patient is reassuringly without hemodynamic instability or fever to suggest severe systemic infection like bacteremia or sepsis. The patient's durations of symptoms are quite brief, and I have a lower concern for metabolic and electrolyte derangement, kidney injury, dehydration as she has been able to tolerate p.o. liquids. She has no chest pain to suggest ACS, and had a full abdominal workup within the last week including CT scan. I did consider multiple falls given the patient's evidence of bruising and abrasions. Reassuringly, the patient is ambulatory, using her hand effectively, and did have CT imaging of her pelvis within the last few days, and I have a lower conc adam for severe or acute traumatic injury. I am concerned that Isaura may be experiencing more frequent falls than she is reporting, as her home facility does not have call lights or bed alarms. We will obtain a viral swab, urinalysis, and chest x-ray. At this time the patient is not desiring of any medications for management of pain or nausea. ED Course: Urinalysis positive for leukocyte esterase but without pyuria, large bacteria, or other concerning infectious findings. In this asymptomatic patient I will hold on empiric antibiosis. Chest x-ray is without evidence of focal consolidation to suggest pneumonia. The patient's COVID test was positive, she takes a statin and I am concerned about her ability to navigate stopping and restarting a medication due to her difficulties with ADLs, and additionally the exact start day of her illness is not clear, so at this time we will hold on Paxlovid administration. The caregivers have significant concerns about the patient's safety at the [facility], and plan to contact the primary care providers tomorrow to discuss whether or not she requires more intensive placement at a different facility. They feel confident that they will be able to navigate the resources needed to ensure that Isaura has what she needs to be successful in the outpatient environment. The patient does not have an admittable diagnosis at this time, and is desiring to go home, and at this time, the patient has had a full medical evaluation and is safe for discharge to home. They are hemodynamically stable, ambulatory, and tolerating PO. They are understanding of the follow-up plan and return precautions. They left our facility without incident. Zabrina Worrell MD Related Data Home Medications ?Medication ?Instructions ?Recorded ?Confirmed pantoprazole 40 mg tablet,delayed 40 mg PO DAILY 02/20/13 07/24/24 release calcium 600 mg (as 1 ea PO BID 10/10/17 07/24/24 carbonate)-vitamin D3 10 mcg (400 unit) tablet quetiapine 100 mg tablet 150 mg PO HS 10/18/20 07/24/24 inhalational spacing device #1 ea 06/17/21 07/24/24 (Aerochamber MV spacer) albuterol sulfate 90 mcg/actuation 2 inh inhalation Q4H PRN #1 ea 08/22/21 07/24/24 breath activated powder inhaler propranolol 40 mg tablet 40 mg PO BID 08/22/21 07/24/24 losartan 50 mg tablet 25 mg PO DAILY 12/12/22 07/24/24 glyburide 5 mg-metformin 500 mg 1 tab PO BID 02/01/23 07/24/24 tablet budesonide-formoterol HFA 160 1 puff inhalation BID 07/10/23 07/24/24 mcg-4.5 mcg/actuation aerosol inhaler (Symbicort) ferrous gluconate 324 mg (37.5 mg 324 mg PO DAILY 07/10/23 07/24/24 iron) tablet tiotropium bromide 1.25 2 puff inhalation DAILY 07/10/23 07/24/24 mcg/actuation mist for inhalation (Spiriva Respimat) polyethylene glycol 3350 17 17 g PO DAILY PRN 01/27/24 07/24/24 gram/dose oral powder (ClearLax) uuzzxjw-ghuzelurdkfxm-xfcvjxac 250 1 tab PO QDAY PRN 09/10/24 01/23/25 mg-250 mg-65 mg tablet (Excedrin Extra Strength) bisacodyl 5 mg tablet 5 mg PO DAILY PRN 03/11/24 07/24/24 docusate sodium 100 mg capsule 100 mg PO QDAY PRN constipation 03/14/24 07/24/24 (Colace) #60 caps polyethylene glycol 3350 17 17 g PO DAILY PRN constipation 03/14/24 07/24/24 gram/dose oral powder #119 grams nystatin 100,000 unit/gram topical 1 applic topical BID #60 grams 04/12/24 07/24/24 powder (Klayesta) Previous Rx's ?Medication ?Instructions ?Recorded inhalational spacing device #1 ea 06/17/21 (Aerochamber MV spacer) albuterol sulfate 90 mcg/actuation 2 inh inhalation Q4H PRN #1 ea 08/22/21 breath activated powder inhaler docusate sodium 100 mg capsule 100 mg PO QDAY PRN constipation 03/14/24 (Colace) #60 caps polyethylene glycol 3350 17 17 g PO DAILY PRN constipation 03/14/24 gram/dose oral powder #119 grams nystatin 100,000 unit/gram topical 1 applic topical BID #60 grams 04/12/24 powder (Klayesta) Allergies Allergy/AdvReac Type Severity Reaction Status Date / Time thiopental sodium (From Allergy Skin Rash Verified 07/24/24 19:18 Pentothal) General Stated Complaint: RespSymp LYNNETTE: 4 Course Vital Signs Vital signs: Vital Signs Temperature 36.6 C 07/24/24 19:12 Pulse 73 07/24/24 19:12 Respiratory Rate 18 07/24/24 19:12 Blood Pressure 135/68 07/24/24 19:12 Pulse Oximetry 98 07/24/24 19:12 Temperature 36.6 C 07/24/24 19:12 Temperature Source Oral 07/24/24 19:12 Pulse 73 07/24/24 19:12 Respiratory Rate 18 07/24/24 19:12 Respiratory Effort Normal 07/24/24 19:24 Respiratory Depth Normal 07/24/24 19:24 Blood Pressure 135/68 07/24/24 19:12 Blood Pressure Position Sitting 07/24/24 19:12 Pulse Oximetry 98 07/24/24 19:12 Oxygen Delivery Method Room Air 07/24/24 19:12 Oxygen Flow Rate 0 07/24/24 19:12 Pain Level 0 07/24/24 19:12 Medical Decision Making Quality:SDOH Health Related Social Needs: Health related social needs details pt with developmen luis delay, lives alone, unable to comprehend difficult medical concepts, limited reading. PFSH All Active Problems (Updated 07/24/24 @ 20:41 by Zabrina Worrell MD) Contusion (Acute) Viral upper respiratory infection (Acute) Cyst of left kidney (Acute) Abdominal pain (Acute) Social isolation (Acute) Goals of care, counseling/discussion (Acute) Carpal tunnel syndrome (Acute) Urinary, incontinence, stress female (Acute 04/02/13) Hair loss (Acute) Lives alone with help available (Acute) NO DPOA yet; ? state guardian?-pt. confirmed no on both as of 02/21/23 CHI (closed head injury) (Acute) Polypharmacy (Acute) At increased risk for social isolation (Acute) Low energy (Acute) Advance care planning (Acute) Impaired instrumental activities of daily living (Acute) Palliative care patient (Acute) Anemia (Chronic) Diverticulosis (Acute) Learning disability (Chronic) manages her own medications DNR (do not resuscitate) (Chronic) DNI (do not intubate) (Chronic) Constipation (Chronic) Financial difficulties (Chronic) Illiterate (Chronic) able to manage independently Abnormal CT scan (Acute) Family history of colon cancer (Acute) Diarrhea (Acute) Hypochromic microcytic anemia (Acute) Cough (Acute) Knee pain (Acute) Fatigue (Acute) Medical History COPD (chronic obstructive pulmonary disease) Learning disability Chronic low back pain GERD (gastroesophageal reflux disease) Sleep disorder Anxiety Vertigo Onychomycosis Eczema Benign essential tremor Diabetes mellitus HTN (hypertension) Neoplasm of skin (12/29/13) Hyperlipidemia (04/02/13) Depression (04/02/13) Restless legs takes Premapaxil Surgical History H/O arthroscopy of left knee (~01/2007) History of colonoscopy (~02/22/23) Oophrectomy, Both (04/09/13) laparotomy. aoc and kk. Abdominal hysterectomy (~1979) for heavy bleeding. Cholecystectomy laparoscopic 03/2011 Extraction of cataract in [place] Arthroplasty of knee L knee Dr Fuentes bladder suspension for incontinence Family History Sister Heart disease Son Parent-child estrangement nec Under care of retirement service life sentence for murder Daughter Parent-child estrangement nec Substance abuse Other Family history of colorectal cancer Social History Smoking/Tobacco Use Status: Never Smoking risk assessment performed?: Yes Alcohol Intake: former Drug use: Never Substance use type: does not use Caregiver/Support person: No Household members: none Housing: apartment Number of Children: 0 Communication Needs: Cannot Read Education Level: middle school Details: finished 6th grade only Do you need help understanding health information?: Always current occupation: always disabled; worked as [employer] for 5 years in her late teens, early 20s Pets and animals: No Current gender identity: female What is your relationship status?: How often do you talk on the phone with friends or family?: never How often do you get together with friends or relatives?: never Panel score (0-1 are the most socially isolated patients): 0 What type of physical activity do you participate in: walking and irregular exercise Duration: < 15 minutes/day Frequency: 1-2 times per week Special pankaj needs: No Agree to transfusion: Yes Seatbelt use: always Drive intox or ride w/intox motor coach bus driver: No Water heater temp set <120 deg: Yes Working smoke detector in home: Yes Firearms in home: No Do you feel safe at home: Yes Do you feel safe in your relationship?: Yes Additional Social history: Lives at [facility], per pt.
[2024-07-24 19:43] LABS: Bilirubin Negative (Negative); Blood Negative (Negative); Clarity Clear (Clear); Glucose Negative (Negative); Ketones Negative (Negative); Leukocyte Esterase Moderate (Negative); Nitrite Negative (Negative); Urobilinogen 0.2 mg/dL (Up to 0.2)
[2024-07-24 19:48] LABS: Bacteria Few HPF (Negative); C & S Indicated? No; Casts Negative LPF (Negative); Crystals Negative HPF (Negative); Epithelial Cells Few HPF (Negative); Mucus Negative (Negative); RBC 0-2 HPF (0-2)
--- NOTE | 2024-07-24 20:19 | DI.VRAD_ITS ---
PROCEDURE INFORMATION: Exam: XR Chest Exam date and time: 07/24/2024 19:57 Age: 74 years old Clinical indication: Other: Eval pna TECHNIQUE: Imaging protocol: Radiologic exam of the chest. Views: 2 views. COMPARISON: CR XR CHEST 2V PA LATERAL 07/14/2023 09:38 FINDINGS: Lungs: Mild hyperinflation without airspace consolidation. Pleural spaces: No pleural effusion. No pneumothorax. Heart/Mediastinum: No cardiomegaly. Bones/joints: No acute fracture. Intraperitoneal space: Right upper quadrant clips, probable cholecystectomy. IMPRESSION: Mild hyperinflation without airspace consolidation. Dictated and Authenticated by: Dora Turner MD. Ordering:CHAIM Dumas MD
[2024-07-24] MEDS: Acetaminophen 500 MG TAB 1000 MG PO (20:30)
[2024-07-24 21:14] LABS: Influenza A PCR Negative (Negative); Influenza B PCR Negative (Negative); RSV PCR Negative (Negative)
[2024-07-24 21:16] LABS: COVID-19 PCR Positive (Negative); Source Nasopharynx
== END 2024-07-24 20:45 | disposition home or self-care (01) ==
PROVIDERS: Emergency Provider Emergency Medicine; PCP Nurse Practitioner Family
DX: J06.9 Acute upper respiratory infection, unspecified (principal); B97.89 Other viral agents as the cause of diseases classified elsewhere; E11.9 Type 2 diabetes mellitus without complications; I10 Essential (primary) hypertension; E78.5 Hyperlipidemia, unspecified; Z79.84 Long term (current) use of oral hypoglycemic drugs; Z73.6 Limitation of activities due to disability; Z91.89 Other specified personal risk factors, not elsewhere classified
CPT/HCPCS: 87637; 99284; 71046; 81003; 81015

== ENCOUNTER 2024-08-10 10:21 | Emergency (ER) | payer MEDICARE, MEDICAID, SELFPAY ==
[2024-08-10 10:22] VITALS: BP 153/130; PULSE 63; RESP 20; TEMP 36.2; O2SAT 98
--- NOTE | 2024-08-10 10:38 | W.ED.GENAD ---
Discharge Plan Disposition Patient Disposition: Home Condition: Stable Discharge Details Clinical Impression: Generalized body aches Primary Care Provider: Sue Lopez ED Provider: Katie Rabago Home Meds and New Rx's Prescriptions: Continued nystatin [Klayesta] 100,000 unit/gram powder 1 applic topical BID Qty: 60 0RF Rx Instructions: apply to abdominal folds and umbilicus No Action quetiapine 100 mg tablet 150 mg PO HS (DME) 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 See Rx Instructions .ROUTE .MEDSUPPLY Qty: 1 0RF Rx Instructions: As directed Excedrin Extra Strength 250-250-65 mg tablet 1 tab PO QDAY PRN bisacodyl 5 mg tablet 5 mg PO DAILY PRN docusate sodium [Colace] 100 mg capsule 100 mg PO QDAY PRN (Reason: constipation) Qty: 60 0RF Rx Instructions: Take 1 tab daily only if no bowel movement in 2 days, per bowel log polyethylene glycol 3350 17 gram/dose powder 17 g PO DAILY PRN (Reason: constipation) Qty: 119 0RF Rx Instructions: Use only if no bowels in 4 days glyburide-metformin 5-500 mg tablet 1 tab PO BID pantoprazole 40 MG tablet,delayed release (DR/EC) 40 mg PO DAILY budesonide-formoterol [Symbicort] 160-4.5 mcg/actuation HFA aerosol inhaler 1 puff INHALATION BID Patient Comments: INHALE 1 PUFF BY MOUTH TWO TIMES A DAY Spiriva Respimat 1.25 mcg/actuation mist 2 puff INHALATION DAILY Patient Comments: INHALE TWO PUFFS BY MOUTH EVERY DAY ferrous gluconate 324 mg (37.5 mg iron) tablet 324 mg PO DAILY Patient Comments: TAKE ONE TABLET BY MOUTH EVERY DAY simvastatin 40 mg tablet 40 mg PO DAILY Patient Comments: TAKE ONE TABLET BY MOUTH EVERY NIGHT calcium carbonate-vitamin D3 1 EACH tablet 1 ea PO BID losartan 50 mg tablet 25 mg PO DAILY Patient Comments: TAKE ONE TABLET BY MOUTH EVERY DAY propranolol 40 mg tablet 40 mg PO BID Patient Comments: TAKE ONE TABLET BY MOUTH TWICE A DAY albuterol sulfate 90 mcg/actuation aerosol powdr breath activated 2 inh inhalation Q4H PRNQty: 1 0RF polyethylene glycol 3350 [ClearLax] 17 gram/dose powder 17 g PO DAILY PRN Discharge Instructions Instructions: Managing acute pain at home, COVID-19 ED Additional Instructions: I do suspect that the body aches are from the COVID infection that you were diagnosed with a week ago. A refill for the nystatin powder was sent to the pharmacy on file. Please take Tylenol or Ibuprofen with food every 4-6 hours as needed for pain and bodyaches. You were given Tylenol here this morning in the ER. Follow up with primary care provider in 3-5 days. Return to ED sooner if any worsening or concerns. Referrals: Sue Lopez [Primary Care Provider] - 5 days Discharge Data Discharge Date/Time-TO BE ENTERED AT DEPARTURE: 08/10/24 11:41 HPI General Mode of arrival: EMS. Date/Time Provider Initiated Documentation: 08/10/24 10:24. Limitations to Documentation: no limitations. Information obtained by: patient, RN notes reviewed and old records reviewed. HPI Narrative: 74-year-old female with past medical history of COPD, recent diagnosis of COVID, GERD, vertigo and eczema diabetes mellitus hypertension and depression presents to the ER via EMS with a chief complaint of bodyaches. She did not take any medications prior to arrival. She did have some abdominal pain however that is resolved upon arrival. She did take her daily medications this morning. Denies any nausea vomiting diarrhea fever or chills. She is alert and oriented x 4. Related Data Home Medications ?Medication ?Instructions ?Recorded ?Confirmed pantoprazole 40 mg tablet,delayed 40 mg PO DAILY 02/20/13 08/10/24 release calcium 600 mg (as 1 ea PO BID 10/10/17 08/10/24 carbonate)-vitamin D3 10 mcg (400 unit) tablet quetiapine 100 mg tablet 150 mg PO HS 10/18/20 08/10/24 inhalational spacing device #1 ea 06/17/21 08/10/24 (Aerochamber MV spacer) albuterol sulfate 90 mcg/actuation 2 inh inhalation Q4H PRN #1 ea 08/22/21 08/10/24 breath activated powder inhaler propranolol 40 mg tablet 40 mg PO BID 08/22/21 08/10/24 losartan 50 mg tablet 25 mg PO DAILY 12/12/22 08/10/24 glyburide 5 mg-metformin 500 mg 1 tab PO BID 02/01/23 08/10/24 tablet budesonide-formoterol HFA 160 1 puff inhalation BID 07/10/23 08/10/24 mcg-4.5 mcg/actuation aerosol inhaler (Symbicort) ferrous gluconate 324 mg (37.5 mg 324 mg PO DAILY 07/10/23 08/10/24 iron) tablet tiotropium bromide 1.25 2 puff inhalation DAILY 07/10/23 08/10/24 mcg/actuation mist for inhalation (Spiriva Respimat) polyethylene glycol 3350 17 17 g PO DAILY PRN 01/27/24 08/10/24 gram/dose oral powder (ClearLax) bqyiddo-ypkqfbrpopovz-eillznuu 250 1 tab PO QDAY PRN 03/11/24 08/10/24 mg-250 mg-65 mg tablet (Excedrin Extra Strength) bisacodyl 5 mg tablet 5 mg PO DAILY PRN 03/11/24 08/10/24 docusate sodium 100 mg capsule 100 mg PO QDAY PRN constipation 03/14/24 08/10/24 (Colace) #60 caps polyethylene glycol 3350 17 17 g PO DAILY PRN constipation 03/14/24 08/10/24 gram/dose oral powder #119 grams nystatin 100,000 unit/gram topical 1 applic topical BID #60 grams 08/10/24 powder (Klayesta) simvastatin 40 mg tablet 40 mg PO DAILY 08/10/24 08/10/24 Previous Rx's ?Medication ?Instructions ?Recorded inhalational spacing device #1 ea 06/17/21 (Aerochamber MV spacer) albuterol sulfate 90 mcg/actuation 2 inh inhalation Q4H PRN #1 ea 08/22/21 breath activated powder inhaler docusate sodium 100 mg capsule 100 mg PO QDAY PRN constipation 03/14/24 (Colace) #60 caps polyethylene glycol 3350 17 17 g PO DAILY PRN constipation 03/14/24 gram/dose oral powder #119 grams nystatin 100,000 unit/gram topical 1 applic topical BID #60 grams 08/10/24 powder (Klayesta) Allergies Allergy/AdvReac Type Severity Reaction Status Date / Time thiopental sodium (From Allergy Skin Rash Verified 08/10/24 10:25 Pentothal) General Stated Complaint: Abd Prob LYNNETTE: 3 Review of Systems All systems reviewed & are unremarkable except as noted in HPI and below Constitutional Constitutional: Reports body ache(s) Exam Narrative Exam Narrative: Constitutional: Alert and oriented x3. Appears stated age. Normal body habitus. Head: Normocephalic, no trauma. Eyes: Pupils PERRL, Red reflex noted, EOM's intact. Eyelids symmetrical without lesions, discharge, or swelling. ENT: Bilateral TM's WNL, External ear normal to inspection, no mastoid TTP, swelling, or erythema, Nasal turbinates WNL, no nasal discharge. Normal dentition, Posterior pharynx WNL, no exudate. Chest: RRR, Normal S1, S2, distal pulses intact. Resp: Lungs clear to auscultation bilaterally, no wheezes, rales, or rhonchi. Abdomen: Soft, non-distended, Normoactive bowel sounds all 4 quads. Musculoskeletal: Normal gait, Moves all 4 extremities without difficulty. Skin: Fungal looking rash noted underneath her breast. She has been applying nystatin powder on which she has run out of. Capillary refill less than 2 sec. Neurologic: Cranial nerves II-XII intact. Alert and oriented x 3. Motor: No deficits noted. Sensory: Intact bilaterally all 4 extremities. Hematologic/Lymphatic: No ecchymosis, no lymphadenopathy. Course Vital Signs Vital signs: Vital Signs Temperature 36.2 C L 08/10/24 10:22 Pulse 63 08/10/24 10:22 Respiratory Rate 20 08/10/24 10:22 Blood Pressure 153/130 H 08/10/24 10:22 Pulse Oximetry 98 08/10/24 10:22 Temperature 36.2 C L 08/10/24 10:22 Temperature Source Temporal Artery Scan 08/10/24 10:22 Pulse 63 08/10/24 10:22 Respiratory Rate 20 08/10/24 10:22 Blood Pressure 153/130 H 08/10/24 10:22 Blood Pressure Position Sitting 08/10/24 10:22 Pulse Oximetry 98 08/10/24 10:22 Oxygen Delivery Method Room Air 08/10/24 10:22 Oxygen Flow Rate 0 08/10/24 10:22 Pain Level 0 08/10/24 10:22 Medical Decision Making 74-year-old female with past medical history of COPD, recent diagnosis of COVID, GERD, vertigo and eczema diabetes mellitus hypertension and depression presents to the ER via EMS with a chief complaint of bodyaches. She did not take any medications prior to arrival. She did have some abdominal pain however that is resolved upon arrival. She did take her daily medications this morning. Denies any nausea vomiting diarrhea fever or chills. She is alert and oriented x 4. Due to patient having chest x-ray within the last week and CT on 20 July imaging deferred at this time. Patient has no significant complaints other than body aches. Patient was given Tylenol upon arrival to the department. Vital signs are within normal limits she is complaining of being hungry and was fed by ED staff. Patient remained hemodynamically stable throughout the remainder of her stay her blood pressure has improved. Patient was given Tylenol prior to discharge and instructed to take her normal medications as directed. Given instructions on COVID and follow-up with her PCP. This text was generated using [employer] system, please disregard any oddities of phrase or misspellings. Medical Records Medical records reviewed: Yes I reviewed the patient's medical records. Lab Data Lab results reviewed: Yes I reviewed the patient's lab results. Quality:SDOH Health Related Social Needs: Health related social needs details pt with developmental delay, lives alone, unable to comprehend difficult medical concepts, limited reading. PFSH All Active Problems (Updated 08/10/24 @ 10:40 by Katie Rabago NP) Generalized body aches (Acute) Contusion (Acute) Viral upper respiratory infection (Acute) Cyst of left kidney (Acute) Abdominal pain (Acute) Social isolation (Acute) Goals of care, counseling/discussion (Acute) Carpal tunnel syndrome (Acute) Urinary, incontinence, stress female (Acute 04/02/13) Hair loss (Acute) Lives alone with help available (Acute) NO DPOA yet; ? state guardian?-pt. confirmed no on both as of 02/21/23 CHI (closed head injury) (Acute) Polypharmacy (Acute) At increased risk for social isolation (Acute) Low energy (Acute) Advance care planning (Acute) Impaired instrumental activities of daily living (Acute) Palliative care patient (Acute) Anemia (Chronic) Diverticulosis (Acute) Learning disability (Chronic) manages her own medications DNR (do not resuscitate) (Chronic) DNI (do not intubate) (Chronic) Constipation (Chronic) Financial difficulties (Chronic) Illiterate (Chronic) able to manage independently Abnormal CT scan (Acute) Family history of colon cancer (Acute) Diarrhea (Acute) Hypochromic microcytic anemia (Acute) Cough (Acute) Knee pain (Acute) Fatigue (Acute) Medical History COPD (chronic obstructive pulmonary disease) Learning disability Chronic low back pain GERD (gastroesophageal reflux disease) Sleep disorder Anxiety Vertigo Onychomycosis Eczema Benign essential tremor Diabetes mellitus HTN (hypertension) Neoplasm of skin (12/29/13) Hyperlipidemia (04/02/13) Depression (04/02/13) Restless legs takes Premapaxil Surgical History H/O arthroscopy of left knee (~01/2007) History of colonoscopy (~02/22/23) Oophrectomy, Both (04/09/13) laparotomy. aoc and kk. Abdominal hysterectomy (~1979) for heavy bleeding. Cholecystectomy laparoscopic 03/2011 Extraction of cataract in [place] Arthroplasty of knee L knee Dr Fuentes bladder suspension for incontinence Family History Sister Heart disease Son Parent-child estrangement nec Under care of jail service life sentence for murder Daughter Parent-child estrangement nec Substance abuse Other Family history of colorectal cancer Social History Smoking/Tobacco Use Status: Never Smoking risk assessment performed?: Yes Alcohol Intake: former Drug use: Never Substance use type: does not use Caregiver/Support person: No Household members: none Housing: apartment Number of Children: 0 Communication Needs: Cannot Read Education Level: middle school Details: finished 6th grade only Do you need help understanding health information?: Always current occupation: always disabled; worked as [employer] for 5 years in her late teens, early 20s Pets and animals: No Current gender identity: female What is your relationship status?: How often do you talk on the phone with friends or family?: never How often do you get together with friends or relatives?: never Panel score (0-1 are the most socially isolated patients): 0 What type of physical activity do you participate in: walking and irregular exercise Duration: < 15 minutes/day Frequency: 1-2 times per week Special pankaj needs: No Agree to transfusion: Yes Seatbelt use: always Drive intox or ride w/intox driver examiner: No Water heater temp set <120 deg: Yes Working smoke detector in home: Yes Firearms in home: No Do you feel safe at home: Yes Do you feel safe in your relationship?: Yes Additional Social history: Lives at [facility], per pt.
[2024-08-10 10:43] VITALS: BP 109/60; PULSE 60; RESP 20; TEMP 36.4; O2SAT 100
[2024-08-10] MEDS: Acetaminophen 500 MG TAB PO (10:49)
== END 2024-08-10 11:41 | disposition home or self-care (01) ==
PROVIDERS: Emergency Provider Registered Nurse Emergency; PCP Nurse Practitioner Family
DX: M79.10 Myalgia, unspecified site (principal); J44.9 Chronic obstructive pulmonary disease, unspecified; E11.9 Type 2 diabetes mellitus without complications; I10 Essential (primary) hypertension; E78.5 Hyperlipidemia, unspecified; Z79.84 Long term (current) use of oral hypoglycemic drugs
CPT/HCPCS: 99283

== ENCOUNTER 2024-10-17 14:40 | Emergency (ER) | payer MEDICARE, MEDICAID, SELFPAY ==
[2024-10-17 15:16] VITALS: BP 144/66; PULSE 67; RESP 18; TEMP 36.6; O2SAT 97
[2024-10-17 18:06] VITALS: BP 140/65; PULSE 75
[2024-10-17 19:12] VITALS: BP 145/87; PULSE 75
[2024-10-17 19:18] LABS: Bilirubin Negative (Negative); Blood Negative (Negative); Clarity Clear (Clear); Glucose Negative (Negative); Ketones Negative (Negative); Leukocyte Esterase Small (Negative); Nitrite Negative (Negative); Urobilinogen 0.2 mg/dL (Up to 0.2)
[2024-10-17 19:24] LABS: Abs Immature Grans 0.02 10^3/uL (0.0-0.06); Absolute Basophil Count 0.08 10^3/uL (0.0-0.2); Absolute Eosinophil Count 0.22 10^3/uL (0.0-0.7); Absolute Neutrophil Count 6.56 10^3/uL (1.2-6.7); Basophils % 0.8 %; Eosinophils % 2.3 %; HCT 41.3 % (36.0-46.0); HGB 13.4 g/dL (11.2-15.7); Immature Grans % 0.2 %; Lymphocytes % 20.9 %; MCHC 32.4 % (32.0-36.0); MCV 83 fL (80-95); MPV 9.2 fL (8.0-11.0); Monocytes % 7.3 %; Neutrophils % 68.5 %; Platelet Count 255 10^3/uL (130-400); RBC 4.96 10^6/uL (3.93-5.22); RDW 13.6 % (11.7-14.6); RDW-SD 41.3 fL; WBC 9.58 10^3/uL (4.4-10.8)
[2024-10-17 19:26] LABS: Epithelial Cells Few HPF (Negative); RBC 0-2 HPF (0-2)
[2024-10-17 19:27] LABS: Bacteria Few HPF (Negative); C & S Indicated? No; Casts Negative LPF (Negative); Crystals Negative HPF (Negative); Mucus Negative (Negative)
[2024-10-17 19:53] LABS: ALT 30 U/L (14-59); AST 20 U/L (15-37); Albumin 3.9 g/dL (3.4-5.0); Alkaline Phosphatase 110 U/L (46-116); BUN 12 mg/dL (7-18); Bilirubin, Total 0.5 mg/dL (0.2-1.0); CREATININE 0.7 mg/dL (0.55-1.02); Calcium 9.7 mg/dL (8.5-10.1); Chloride 100 mmol/L (98-107); Estimated GFR 90.14 (mL/min/1.73m2); Glucose 151 mg/dL (74-106); Potassium 3.6 mmol/L (3.5-5.1); Sodium 137 mmol/L (136-145); TSH (W/Ref FT4) 2.58 uIU/mL (0.36-3.74); Total Protein 7.9 g/dL (6.4-8.2)
--- NOTE | 2024-10-17 22:33 | W.ED.GENAD ---
Discharge Plan Discharge Details Chief Complaint: AMS/LOC Primary Care Provider: Sue Lopez ED Provider: Lynn Milian Home Meds and New Rx's Prescriptions: No Action quetiapine 100 mg tablet 150 mg PO HS (DME) 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 See Rx Instructions .ROUTE .MEDSUPPLY Qty: 1 0RF Rx Instructions: As directed Excedrin Extra Strength 250-250-65 mg tablet 1 tab PO QDAY PRN bisacodyl 5 mg tablet 5 mg PO DAILY PRN docusate sodium [Colace] 100 mg capsule 100 mg PO QDAY PRN (Reason: constipation) Qty: 60 0RF Rx Instructions: Take 1 tab daily only if no bowel movement in 2 days, per bowel log polyethylene glycol 3350 17 gram/dose powder 17 g PO DAILY PRN (Reason: constipation) Qty: 119 0RF Rx Instructions: Use only if no bowels in 4 days glyburide-metformin 5-500 mg tablet 1 tab PO BID pantoprazole 40 MG tablet,delayed release (DR/EC) 40 mg PO DAILY budesonide-formoterol [Symbicort] 160-4.5 mcg/actuation HFA aerosol inhaler 1 puff INHALATION BID Patient Comments: INHALE 1 PUFF BY MOUTH TWO TIMES A DAY Spiriva Respimat 1.25 mcg/actuation mist 2 puff INHALATION DAILY Patient Comments: INHALE TWO PUFFS BY MOUTH EVERY DAY ferrous gluconate 324 mg (37.5 mg iron) tablet 324 mg PO DAILY Patient Comments: TAKE ONE TABLET BY MOUTH EVERY DAY simvastatin 40 mg tablet 40 mg PO DAILY Patient Comments: TAKE ONE TABLET BY MOUTH EVERY NIGHT nystatin [Klayesta] 100,000 unit/gram powder 1 applic topical BID Qty: 60 0RF Rx Instructions: apply to abdominal folds and umbilicus calcium carbonate-vitamin D3 1 EACH tablet 1 ea PO BID losartan 50 mg tablet 25 mg PO DAILY Patient Comments: TAKE ONE TABLET BY MOUTH EVERY DAY propranolol 40 mg tablet 40 mg PO BID Patient Comments: TAKE ONE TABLET BY MOUTH TWICE A DAY albuterol sulfate 90 mcg/actuation aerosol powdr breath activated 2 inh inhalation Q4H PRNQty: 1 0RF polyethylene glycol 3350 [ClearLax] 17 gram/dose powder 17 g PO DAILY PRN HPI General Date/Time Provider Initiated Documentation: 10/17/24 14:40. HPI Narrative: 74-year-old female with social isolation, illiteracy, microcytic anemia, learning disability, depression, and diabetes, presenting with homelessness. Asked to leave the [facility], moved in with a friend but became hostile, expressed desire to harm the friend's dog, refused medications, and became argumentative and agitated. Information provided by Vicki, the friend. Paying $300 monthly to live with the friend, described as an 'expect in the room.' Reports no physical harm but mentions being called derogatory names. No specific complaints, states she has no place to live and cannot live independently. Primary care physician sent paperwork for admission to [facility], not processed yet. Related Data Home Medications ?Medication ?Instructions ?Recorded ?Confirmed pantoprazole 40 mg tablet,delayed 40 mg PO DAILY 02/20/13 10/17/24 release calcium 600 mg (as 1 ea PO BID 10/10/17 10/17/24 carbonate)-vitamin D3 10 mcg (400 unit) tablet quetiapine 100 mg tablet 150 mg PO HS 10/18/20 10/17/24 inhalational spacing device #1 ea 06/17/21 10/17/24 (Aerochamber MV spacer) albuterol sulfate 90 mcg/actuation 2 inh inhalation Q4H PRN #1 ea 08/22/21 10/17/24 breath activated powder inhaler propranolol 40 mg tablet 40 mg PO BID 08/22/21 10/17/24 losartan 50 mg tablet 25 mg PO DAILY 12/12/22 10/17/24 glyburide 5 mg-metformin 500 mg 1 tab PO BID 02/01/23 10/17/24 tablet budesonide-formoterol HFA 160 1 puff inhalation BID 07/10/23 10/17/24 mcg-4.5 mcg/actuation aerosol inhaler (Symbicort) ferrous gluconate 324 mg (37.5 mg 324 mg PO DAILY 07/10/23 10/17/24 iron) tablet tiotropium bromide 1.25 2 puff inhalation DAILY 07/10/23 10/17/24 mcg/actuation mist for inhalation (Spiriva Respimat) polyethylene glycol 3350 17 17 g PO DAILY PRN 01/27/24 10/17/24 gram/dose oral powder (ClearLax) jkhvhpr-hgvwaotouyfqw-khqqckwl 250 1 tab PO QDAY PRN 03/11/24 10/17/24 mg-250 mg-65 mg tablet (Excedrin Extra Strength) bisacodyl 5 mg tablet 5 mg PO DAILY PRN 03/11/24 10/17/24 docusate sodium 100 mg capsule 100 mg PO QDAY PRN constipation 03/14/24 10/17/24 (Colace) #60 caps polyethylene glycol 3350 17 17 g PO DAILY PRN constipation 03/14/24 10/17/24 gram/dose oral powder #119 grams nystatin 100,000 unit/gram topical 1 applic topical BID #60 grams 08/10/24 10/17/24 powder (Klayesta) simvastatin 40 mg tablet 40 mg PO DAILY 08/10/24 10/17/24 Previous Rx's ?Medication ?Instructions ?Recorded inhalational spacing device #1 ea 06/17/21 (Aerochamber MV spacer) albuterol sulfate 90 mcg/actuation 2 inh inhalation Q4H PRN #1 ea 08/22/21 breath activated powder inhaler docusate sodium 100 mg capsule 100 mg PO QDAY PRN constipation 03/14/24 (Colace) #60 caps polyethylene glycol 3350 17 17 g PO DAILY PRN constipation 03/14/24 gram/dose oral powder #119 grams nystatin 100,000 unit/gram topical 1 applic topical BID #60 grams 08/10/24 powder (Klayesta) Allergies Allergy/AdvReac Type Severity Reaction Status Date / Time thiopental sodium (From Allergy Skin Rash Verified 10/17/24 15:13 Pentothal) General Stated Complaint: AMS/LOC LYNNETTE: 2 Exam Narrative Exam Narrative: General Appearance: Alert and oriented x2. No visible trauma. Ambulatory with steady gait. Answers questions appropriately. Vital signs: Within normal limits. HEENT: Within normal limits. Respiratory: Within normal limits. Cardiovascular: Regular cardiac rate and rhythm. Gastrointestinal: No abdominal tenderness. Skin: No rashes or lesions. Neurological: Cranial nerves II-XII intact, follows basic commands. Other observations: None. Course Vital Signs Vital signs: Vital Signs Temperature 36.6 C 10/17/24 15:16 Pulse 67 10/17/24 15:16 Respiratory Rate 18 10/17/24 15:16 Blood Pressure 144/66 H 10/17/24 15:16 Pulse Oximetry 97 10/17/24 15:16 Temperature 36.6 C 10/17/24 15:16 Temperature Source Oral 10/17/24 15:16 Pulse 75 10/17/24 19:12 Respiratory Rate 18 10/17/24 15:16 Respiratory Effort Normal 10/17/24 19:13 Respiratory Depth Normal 10/17/24 19:13 Respiratory Pattern Normal 10/17/24 19:13 Blood Pressure 145/87 H 10/17/24 19:12 Blood Pressure Mean 106 10/17/24 19:12 Blood Pressure Position Sitting 10/17/24 19:12 Pulse Oximetry 97 10/17/24 15:16 Oxygen Delivery Method Room Air 10/17/24 15:16 Oxygen Flow Rate 0 10/17/24 15:16 Pain Level 0 10/17/24 18:06 Lab/Test Results Lab/Test Results: Laboratory Tests Range/Units 10/17/24 10/17/24 17:10 19:17 WBC (4.4-10.8) 10^3/uL 9.58 RBC (3.93-5.22) 10^6/uL 4.96 Hgb (11.2-15.7) g/dL 13.4 Hct (36.0-46.0) % 41.3 MCV (80-95) fL 83 MCH (27.0-33.0) pg 27.0 MCHC (32.0-36.0) % 32.4 RDW (11.7-14.6) % 13.6 Plt Count (130-400) 10^3/uL 255 MPV (8.0-11.0) fL 9.2 Immature Gran % % 0.2 Neutrophils % % 68.5 Lymphocytes % % 20.9 Monocytes % % 7.3 Eosinophils % % 2.3 Basophils % % 0.8 Nucleated RBC % (0.0-0.3) % 0.0 Absolute Neutrophils (1.2-6.7) 10^3/uL 6.56 Absolute Lymphocytes (1.2-3.4) 10^3/uL 2.00 Absolute Monocytes (0.1-0.8) 10^3/uL 0.70 Absolute Eosinophils (0.0-0.7) 10^3/uL 0.22 Absolute Basophils (0.0-0.2) 10^3/uL 0.08 Sodium (136-145) mmol/L 137 Potassium (3.5-5.1) mmol/L 3.6 Chloride (98-107) mmol/L 100 Carbon Dioxide (21.0-32.0) mmol/L 30.0 Anion Gap (3-11) mmol/L 7.0 BUN (7-18) mg/dL 12 Creatinine (0.55-1.02) mg/dL 0.7 Est GFR (CKD-EPI 2020) (mL/min/1.73m2) 90.14 Glucose (74-106) mg/dL 151 H Calcium (8.5-10.1) mg/dL 9.7 Total Bilirubin (0.2-1.0) mg/dL 0.5 AST (15-37) U/L 20 ALT (14-59) U/L 30 Alkaline Phosphatase (46-116) U/L 110 Total Protein (6.4-8.2) g/dL 7.9 Albumin (3.4-5.0) g/dL 3.9 TSH (0.36-3.74) uIU/mL 2.58 Urine Color (Yellow) Yellow Urine Clarity (Clear) Clear Urine pH (5-8) 6.0 Ur Specific Gary (1.005-1.025) 1.020 Urine Protein (Neg-Trace) mg/dL Negative Urine Ketones (Negative) mg/dL Negative Urine Blood (Negative) Negative Urine Nitrite (Negative) Negative Urine Bilirubin (Negative) Negative Urine Urobilinogen (Up to 0.2) mg/dL 0.2 Ur Leukocyte Esterase (Negative) Small H Urine RBC (0-2) HPF 0-2 Urine WBC (0-5) HPF 3-5 Ur Epithelial Cells (Negative) HPF Few Urine Crystals (Negative) HPF Negative Urine Bacteria (Negative) HPF Few Urine Casts (Negative) LPF Negative Urine Mucus (Negative) Negative Ur Culture Indicated? No Urine Glucose (Negative) mg/dL Negative Medical Decision Making CBC within normal limits. Glucose 151. Urinalysis without evidence of infection. Initial Assessment: 74-year-old female with history of social isolation, microcytic anemia, learning disability, depression, diabetes, and homelessness. Patient is alert and oriented x 2, ambulatory with steady gait, and answering questions appropriately. No visible signs of trauma, cardiac rate rhythm regular, no obvious rashes or lesions, no abdominal tenderness, cranial nerves II through XII intact, following all basic commands. Differential Diagnosis: - Homelessness: Capable of making medical decisions despite DNR/DNI status. Without permanent residence, unable to care for herself adequately. No immediate psychiatric evaluation needed. Diagnostic labs show no significant acute abnormalities. Care management assessment in the morning. - Social isolation: History of social isolation, living with a friend who can no longer accommodate her. Hostile and argumentative, straining living situation. Care management assessment to explore housing and support options. - Depression: History of depression. No immediate psychiatric assessment needed, appropriate behavior in emergency department. Continued monitoring and mental health assessment planned pending care management assessment. - Diabetes: Glucose 151. Continue current diabetes management plan. No changes to medication regimen needed. - Microcytic anemia: History of microcytic anemia. No new symptoms or concerns reported. Continue current management. - Learning disability: History of learning disability. No new interventions required. - Illiteracy: History of illiteracy. No new interventions required. - Patient states that she is not aware of current events or the day at baseline ED Course: - Care management assessment planned for the morning. - Diagnostic labs: CBC within normal limits, glucose 151, urinalysis without evidence of obvious infection. - Nursing township supervisor involved. - No psychiatric assessment indicated. Final Assessment: Patient is currently homeless and unable to care for herself adequately. Diagnostic labs show no significant acute abnormalities. Care management assessment planned for the morning to explore housing and support options. No immediate psychiatric evaluation needed. Clinical Impression: - Homelessness - Social isolation - Depression - Diabetes - Microcytic anemia - Learning disability - Illiteracy Disposition: - Hold patient for care management assessment in the morning. MDM Components Evaluation: - Number of Differential Diagnoses or Management Options: Homelessness, social isolation, depression, diabetes, microcytic anemia, learning disability, illiteracy. - Amount and Complexity of Data Reviewed: Diagnostic labs (CBC, glucose, urinalysis), care management assessment, nursing township supervisor involvement. - Risk of Complication and Morbidity or Mortality: Moderate risk due to homelessness and inability to care for herself adequately. Quality:SDOH Health Related Social Needs: Health related social needs details pt with developmental delay, lives alone, unable to comprehend difficult medical concepts, limited reading. PFSH All Active Problems (Updated 09/16/24 @ 15:16 by Diane Morgan RN) Social isolation (Acute) Goals of care, counseling/discussion (Acute) Carpal tunnel syndrome (Acute) Urinary, incontinence, stress female (Acute 04/02/13) Hair loss (Acute) Lives alone with help available (Acute) NO DPOA yet; ? state guardian?-pt. confirmed no on both as of 02/21/23 CHI (closed head injury) (Acute) Polypharmacy (Acute) At increased risk for social isolation (Acute) Low energy (Acute) Advance care planning (Acute) Impaired instrumental activities of daily living (Acute) Anemia (Chronic) Diverticulosis (Acute) Learning disability (Chronic) manages her own medications DNR (do not resuscitate) (Chronic) DNI (do not intubate) (Chronic) Constipation (Chronic) Financial difficulties (Chronic) Illiterate (Chronic) able to manage independently Abnormal CT scan (Acute) Family history of colon cancer (Acute) Diarrhea (Acute) Hypochromic microcytic anemia (Acute) Cough (Acute) Knee pain (Acute) Fatigue (Acute) Medical History (Updated 09/16/24 @ 15:16 by Diane Morgan RN) Palliative care patient COPD (chronic obstructive pulmonary disease) Learning disability Chronic low back pain GERD (gastroesophageal reflux disease) Sleep disorder Anxiety Vertigo Onychomycosis Eczema Benign essential tremor Diabetes mellitus HTN (hypertension) Neoplasm of skin (12/29/13) Hyperlipidemia (04/02/13) Depression (04/02/13) Restless legs takes Premapaxil Surgical History H/O arthroscopy of left knee (~01/2007) History of colonoscopy (~02/22/23) Oophrectomy, Both (04/09/13) laparotomy. aoc and kk. Abdominal hysterectomy (~1979) for heavy bleeding. Cholecystectomy laparoscopic 03/2011 Extraction of cataract in [place] Arthroplasty of knee L knee Dr Fuentes bladder suspension for incontinence Family History Sister Heart disease Son Parent-child estrangement nec Under care of [facility] service life sentence for murder Daughter Parent-child estrangement nec Substance abuse Other Family history of colorectal cancer Social History Smoking/Tobacco Use Status: Never Smoking risk assessment performed?: Yes Alcohol Intake: former Drug use: Never Substance use type: does not use Caregiver/Support person: No Household members: none Housing: apartment Number of Children: 0 Communication Needs: Cannot Read Education Level: middle school Details: finished 6th grade only Do you need help understanding health information?: Always current occupation: always disabled; worked as [employer] for 5 years in her late teens, early 20s Pets and animals: No Current gender identity: female What is your relationship status?: How often do you talk on the phone with friends or family?: never How often do you get together with friends or relatives?: never Panel score (0-1 are the most socially isolated patients): 0 What type of physical activity do you participate in: walking and irregular exercise Duration: < 15 minutes/day Frequency: 1-2 times per week Special pankaj needs: No Agree to transfusion: Yes Seatbelt use: always Drive intox or ride w/intox pick up and delivery driver: No Water heater temp set <120 deg: Yes Working smoke detector in home: Yes Firearms in home: No Do you feel safe at home: Yes Do you feel safe in your relationship?: Yes Additional Social history: Pt has been living in a home with caregiver and is no longer appropriate for this environment
[2024-10-18] MEDS: Propranolol 40 MG TAB PO (07:44)
[2024-10-18] MEDS: metFORMIN 500 MG TAB PO (07:44)
[2024-10-18] MEDS: Losartan 25 MG TAB PO (07:45)
[2024-10-18] MEDS: glyBURIDE 5 MG TAB PO (07:45)
--- NOTE | 2024-10-18 07:47 | ED.PROG_ITS ---
Date of service: 10/18/24 Time of Service: 07:47 Medical Decision Making Care assumed from off going provider. Patient is a 74-year-old female with history of low cognitive function that is currently without a place to stay. There is no safe disposition plan for this patient. Final disposition is pending care management evaluation. Patient has been evaluated by care management, physical therapy and mental health service's is. At this time there is no medical indication for hospitalization. Patient does not meet requirements for senior care facility placement and has no funding source for a retirement. The decision has been made to transport the patient via our CT to the [facility] in [place]. She will be able to stay there and will be able to assist her with her housing difficulties. Quality:SDOH Health Related Social Needs: Health related social needs details pt with developmen luis delay, lives alone, unable to comprehend difficult medical concepts, limited reading. Discharge Plan Disposition Patient Disposition: Home Condition: Stable Discharge Details Clinical Impression: Impaired instrumental activities of daily living, Housing insecurity Primary Care Provider: Sue Lopez ED Provider: Fito Tsai [place] Meds and New Rx's Prescriptions: No Action quetiapine 100 mg tablet 150 mg PO HS (DME) 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 See Rx Instructions .ROUTE .MEDSUPPLY Qty: 1 0RF Rx Instructions: As directed Excedrin Extra Strength 250-250-65 mg tablet 1 tab PO QDAY PRN bisacodyl 5 mg tablet 5 mg PO DAILY PRN docusate sodium [Colace] 100 mg capsule 100 mg PO QDAY PRN (Reason: constipation) Qty: 60 0RF Rx Instructions: Take 1 tab daily only if no bowel movement in 2 days, per bowel log polyethylene glycol 3350 17 gram/dose powder 17 g PO DAILY PRN (Reason: constipation) Qty: 119 0RF Rx Instructions: Use only if no bowels in 4 days glyburide-metformin 5-500 mg tablet 1 tab PO BID pantoprazole 40 MG tablet,delayed release (DR/EC) 40 mg PO DAILY budesonide-formoterol [Symbicort] 160-4.5 mcg/actuation HFA aerosol inhaler 1 puff INHALATION BID Patient Comments: INHALE 1 PUFF BY MOUTH TWO TIMES A DAY Spiriva Respimat 1.25 mcg/actuation mist 2 puff INHALATION DAILY Patient Comments: INHALE TWO PUFFS BY MOUTH EVERY DAY ferrous gluconate 324 mg (37.5 mg iron) tablet 324 mg PO DAILY Patient Comments: TAKE ONE TABLET BY MOUTH EVERY DAY simvastatin 40 mg tablet 40 mg PO DAILY Patient Comments: TAKE ONE TABLET BY MOUTH EVERY NIGHT nystatin [Klayesta] 100,000 unit/gram powder 1 applic topical BID Qty: 60 0RF Rx Instructions: apply to abdominal folds and umbilicus calcium carbonate-vitamin D3 1 EACH tablet 1 ea PO BID losartan 50 mg tablet 25 mg PO DAILY Patient Comments: TAKE ONE TABLET BY MOUTH EVERY DAY propranolol 40 mg tablet 40 mg PO BID Patient Comments: TAKE ONE TABLET BY MOUTH TWICE A DAY albuterol sulfate 90 mcg/actuation aerosol powdr breath activated 2 inh inhalation Q4H PRNQty: 1 0RF polyethylene glycol 3350 [ClearLax] 17 gram/dose powder 17 g PO DAILY PRN Discharge Instructions Additional Instructions: At this time arrangements have been made for you to go to [facility]. There they will help you with finding housing and other needs that may arise. Please follow-up closely with your PCP for any medical
[2024-10-18 08:36] VITALS: BP 134/69; PULSE 72; RESP 14; O2SAT 96
--- NOTE | 2024-10-18 13:19 | PT.INIE ---
Date of service: 10/18/24 Time of Service: 13:00 PT Notes Visit Reasons: [facility] Inpatient Physical Therapy Evaluation Date: October 18, 2024 Referring Doctor: Fito Tsai PT Orders: PT CONSULT: safety consult for d/c Patient Profile/Diagnosis: Isaura is a 74 year old female referred for PT evaluation and treatment for safety consult for discharge. Isaura presents with social isolation, illiteracy, microcytic anemia, learning disability, depression, and diabetes, presenting with homelessness. PMHX: (Updated 09/16/24 @ 15:16 by Diane Morgan RN) Social isolation (Acute) Goals of care, counseling/discussion (Acute) Carpal tunnel syndrome (Acute) Urinary, incontinence, stress female (Acute 04/02/13) Hair loss (Acute) Lives alone with help available (Acute) NO DPOA yet; ? state guardian?-pt. confirmed no on both as of 02/21/23CHI (closed head injury) (Acute) Polypharmacy (Acute) At increased risk for social isolation (Acute) Low energy (Acute) Advance care planning (Acute) Impaired instrumental activities of daily living (Acute) Anemia (Chronic) Diverticulosis (Acute) Learning disability (Chronic) manages her own medicationsDNR (do not resuscitate) (Chronic) DNI (do not intubate) (Chronic) Constipation (Chronic) Financial difficulties (Chronic) Illiterate (Chronic) able to manage independentlyAbnormal CT scan (Acute) Family history of colon cancer (Acute) Diarrhea (Acute) Hypochromic microcytic anemia (Acute) Cough (Acute) Knee pain (Acute) Fatigue (Acute) Medical History (Updated 09/16/24 @ 15:16 by Diane Morgan RN) Palliative care patient COPD (chronic obstructive pulmonary disease) Learning disability Chronic low back pain GERD (gastroesophageal reflux disease) Sleep disorder Anxiety Vertigo Onychomycosis Eczema Benign essential tremor Diabetes mellitus HTN (hypertension) Neoplasm of skin (12/29/13) Hyperlipidemia (04/02/13) Depression (04/02/13) Restless legs takes Premapaxil Surgical History H/O arthroscopy of left knee (~01/2007) History of colonoscopy (~02/22/23) Oophrectomy, Both (04/09/13) laparotomy. aoc and kk.Abdominal hysterectomy (~1979) for heavy bleeding. Cholecystectomy laparoscopic 03/2011 Extraction of cataract in [place] Arthroplasty of kneeL knee Dr Fuentes bladder suspension for incontinence Social History/Home Situation: Isaura is homeless. Previously resided at the [facility]- was asked to leave. Recently staying with a friend however due to a threat against her friends dog she can no longer go back Current Functional Limitations: Reports independence with ADLs. Utilizes a rollator for all ambulation. Declines any falls. Equipment Owned/DME: Rollator Subjective: Isaura is very frustrated for she does not know where she is going to go. She does not have any housing at this time. Objective: General Observation: sitting upright in ED bed with feet resting on stool. Mental Status: Alert and oriented to person and place. Unsure of time Pain: Declines any pain ROM: Right Upper Extremity: Demonstrates WFL ROM R UE. Left Upper Extremity: Demonstrates WFL ROM L UE Right Lower Extremity: Demonstrates WFL ROM R LE Left Lower Extremity: Demonstrates WFL ROM L LE Strength: Right Upper Extremity: Demonstrates good gravity resisted strength of R UE Left Upper Extremity: Demonstrates good gravity resisted strength of L UE Right Lower Extremity: Demonstrates good gravity resisted strength of R LE Left Lower Extremity: Demonstrates good gravity resisted strength of L LE Sensation: Intact to light touch. Bed Mobility/Transfers: Sit to stand: Independent Stand to sit: Independent Sit to supine: Independent- with HOB elevated. Notes occasional dizziness if lying flat due to history of vertigo. Gait: Ambulates with rollator 100 ft x2 with widened base of support. Decreased val. Shortened stride length. Balance: Static Sitting: Normal Dynamic Sitting: Good Static Standing: Good Dynamic Standing: Poor 4 stage balance assessment: Feet together 10 seconds, Foot in instep of other foot 10 seconds, Unable to assume tandem or unilateral stance without assistance. Informed Consent/Education: Patient instructed in purpose of PT consult and plan of care. Assessment: Patient is a 74 year old female referred to physical therapy services safety consult for discharge. Patient demonstrates WFL ROM and strength of bilateral UE/LE. Is independent with use of rollator and is recommended for safe ambulation to continue to utilize due to altered standing balance. Demonstrates safe transfers and bed mobility. Does not require any further PT services at this time. Patient is assessed as a Low 61589 complexity based on the following: History: As above Examination: As above Presentation: Stable Decision Making: Low Plan of Care/Treatment Plan: Does not require further PT at this time. Discharge from PT services. TREATMENT CODE/TIME: 62619, IE 20 minutes 13:00 pm [facility] Disclaimer: This note was created using [employer] voice recognition software. It was reviewed for major content. However, there may be multiple small discrepancies and errors due to the voice recognition aspects of the software.
--- NOTE | 2024-10-18 20:16 | PDOC.MHPN2 ---
Date of service: 10/18/24 Time of Service: 11:30 PHQ-9 Over the last 2 weeks, how often have you been bothered by any of the following problems? 1. Little interest or pleasure in doing things: not at all 2. Feeling down, depressed, or hopeless: several days 3. Trouble falling or staying asleep, or sleeping too much: not at all 4. Feeling tired or having little energy: several days 5. Poor appetite or overeating: not at all 6. Feeling bad about yourself - or that you are a failure or have let yourself and your family down: not at all 7. Trouble concentrating on things, such as reading the newspaper or watching television: not at all 8. Moving or speaking so slowly that other people could have noticed? - Or the opposite - being so fidgety or restless that you have been moving around a lot more than usual: not at all 9. Thoughts that you would be better off or of hurting yourself in some way: not at all Total score: 2 If you checked off any problems, how difficult have these problems made it for you to do your work, take care of things at home, or get along with other people?: somewhat difficult PHQ-9 Results: Negative Source: Developed by Drs. Benson Jurado, Kamille Mckeon, Jose Riggins and colleagues, with an educational ollie from [employer]. Suicide Severity Rate CSSRS Have you wished you were or wished you could go to sleep and not wake up?: No Have you actually had any thoughts of killing yourself?: No CSSRS2 Have you been thinking about how you might do this?: No Have you had these thoughts and had some intention of acting on them?: No Have you started to work out or worked out the details of how to kill yourself? Do you intend to carry out this plan?: No CSSRS3 Have you ever done anything, started to do anything or prepared to do anything to end your life?: No CSSRS4 Was this within the past three months?: No Screening Score Total Score: 0 Screening: Negative Mental Health Emergency Note Release [facility] release signed:: Yes Reason for Visit Ms Gaviria is a 74 year old single female who is currently unhoused. The client's main complaint is of being abandoned by a woman named Vicki who was caring for this client. The client does not know Vicki's last name. The client states that Vicki took her last social security check. The client was expecting to go to [facility]. The companion caregiver called the shelter who did not have the client expected to come to them. The client was informed of this. The client states her only natural support is a Danyel Igor who works at the [employer] in [place]. The client states that all of her family have of cancer and her boyfriend in the ER seven years ago from internal bleeding. The client repeatedly called Vicki simons (bitch) and stated that all of this discouraging. The client was informed of the front porch and the 23 hour limit. The client agreed to go to the front porch for the 23 hours. In the last 2 weeks has the pt presented for ES prior to today?: No Client Information Client is: New Well Housed: No,status: Homeless Non Suicidal Self Injury Current: No History: No Safety Risk/Harm to Self or Others Current Ideation to Harm Self or Others: No Risk: Does risk to harm exist?: No Duty to warn indicated: No Asssessment/Mental Status Appearance: Unremarkable Attitude: Cooperative and Friendly Behavior: Agitated Speech: Pressured Affect: Normal Mood: Stressed Thought process: Racing Hallucinations: No Delusions: No Attention: Unremarkable Perception: Not impaired Orientation: Disoriented in Time Memory: Impaired in: Recent Insight: Fair Judgement: Fair Neurovegetative Symptoms Sleep: Decrease Appetitie: No change Interests: No change Energy: No change Libido: Not applicable Substance Use: Do you use nicotine?: No Have you used substances in the last 7 days?: No Additional Issues: Assaultive/Threatening Behavior: No Medical Concerns: No Client engaged in active self harm w/weapon: No Threatening to run away: No Child reported abuse/neglect: No Voluntarily presenting for services: Yes Domestic violence is a concern: No Extreme Psychosis or extreme behavior is present: No Impression Ms Gaviria is a 74 year old single female who is currently unhoused. The client's main complaint is of being abandoned by a woman named Vicki who was caring for this client. The client does not know Vicki's last name. The client states that Vicki took her last social security check. The client was expecting to go to [facility]. The companion caregiver called the shelter who did not have the client expected to come to them. The client was informed of this. The client states her only natural support is a Danyel Patrick who works at the [employer] in [place]. The client states that all of her family have of cancer and her boyfriend in the ER seven years ago from internal bleeding. The client repeatedly called Vicki zuniga) and stated that all of this discouraging. The client was informed of the front porch and the 23 hour limit. The client agreed to go to the [facility] for the 23 hours. Plan/Disposition Recommended Disposition: Community resources. Plan: Discharged to the [facility]. Reports/communication Outcome discussed with: ED/Personnel
--- NOTE | 2024-10-19 09:57 | NUR.NOTE ---
Nursing Note: Chart accessed to give contact information for caregiver to Front Porch staff Nubia
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
== END 2024-10-18 13:44 | disposition home or self-care (01) ==
PROVIDERS: Physician Assistant; Emergency Provider Emergency Medicine; PCP Nurse Practitioner Family
DX: F32.A Depression, unspecified (principal); F20.9 Schizophrenia, unspecified; F03.90 Unspecified dementia, unspecified severity, without behavioral disturbance, psychotic disturbance, mood disturbance, and anxiety; D64.9 Anemia, unspecified; J44.9 Chronic obstructive pulmonary disease, unspecified; I10 Essential (primary) hypertension; E11.9 Type 2 diabetes mellitus without complications; Z79.84 Long term (current) use of oral hypoglycemic drugs; Z60.4 Social exclusion and rejection; Z59.00 Homelessness unspecified
CPT/HCPCS: 00123; 80053; 82962; 96127; 97161; 99285; 81003; 81015; 84443; 85025

== ENCOUNTER 2024-10-23 18:06 | Observation (INO) | payer MEDICARE, MEDICAID, SELFPAY ==
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
[2024-10-23 18:12] VITALS: BP 184/63; PULSE 84; RESP 16; TEMP 36.6; O2SAT 98
[2024-10-23 18:20] VITALS: BP 184/63; PULSE 84; RESP 16; TEMP 36.6; O2SAT 98
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
[2024-10-23 19:12] LABS: HCT 41.4 % (36.0-46.0); HGB 13.1 g/dL (11.2-15.7); MCH 27.1 pg (27.0-33.0); MCHC 31.6 % (32.0-36.0); MCV 86 fL (80-95); MPV 8.9 fL (8.0-11.0); Platelet Count 237 10^3/uL (130-400); RBC 4.84 10^6/uL (3.93-5.22); RDW 13.6 % (11.7-14.6); RDW-SD 42.4 fL; WBC 9.49 10^3/uL (4.4-10.8)
[2024-10-23 19:39] LABS: Anion Gap 4.6 mmol/L (3-11); BUN 13 mg/dL (7-18); CO2 31.4 mmol/L (21.0-32.0); CREATININE 0.8 mg/dL (0.55-1.02); Calcium 9.7 mg/dL (8.5-10.1); Chloride 103 mmol/L (98-107); ETHANOL BLOOD < 3.0 mg/dL (<10); Estimated GFR 76.79 (mL/min/1.73m2); Glucose 125 mg/dL (74-106); Potassium 3.8 mmol/L (3.5-5.1); Salicylate < 2.8 mg/dL (<2.8); Sodium 139 mmol/L (136-145); TSH (W/Ref FT4) 1.55 uIU/mL (0.36-3.74)
[2024-10-23 19:40] LABS: Acetaminophen < 2 ug/mL (10-30)
[2024-10-23 22:52] LABS: Bilirubin Negative (Negative); Blood Negative (Negative); Clarity Clear (Clear); Glucose Negative (Negative); Ketones Negative (Negative); Leukocyte Esterase Moderate (Negative); Nitrite Negative (Negative); Specific Gravity 1.015 (1.005-1.025); Urobilinogen 0.2 mg/dL (Up to 0.2)
[2024-10-23 23:00] LABS: Bacteria Rare HPF (Negative); C & S Indicated? No; Casts Negative LPF (Negative); Crystals Negative HPF (Negative); Epithelial Cells Rare HPF (Negative); Mucus Negative (Negative); Other Cells Rare Transitional (Negative); RBC 0-2 HPF (0-2)
[2024-10-23] MEDS: Budesonide/Formoterol 160/4.5 6 GM 60 PUFF INH IH (23:04)
[2024-10-23] MEDS: QUEtiapine 100 MG TAB 150 MG PO (23:04)
[2024-10-23] MEDS: metFORMIN 500 MG TAB PO (23:04)
[2024-10-23] MEDS: glyBURIDE 5 MG TAB PO (23:07)
[2024-10-23] MEDS: Simvastatin 40 MG TAB PO (23:07)
[2024-10-23] MEDS: Propranolol 40 MG TAB PO (23:07)
[2024-10-23 23:12] LABS: *AMPHETAMINES SCREEN URINE Negative (Negative); *BARBITURATES SCREEN URINE Negative (Negative); *BENZODIAZEPINES SCREEN URINE Negative (Negative); Cannabinoids THC Negative (Negative); Cocaine Screen,Urine Negative (Negative); METHADONE URINE SCREEN Negative (Negative); OPIATES URINE SCREEN Negative (Negative)
[2024-10-23 23:13] LABS: Tricyclic Antidepressants Negative (Negative)
--- NOTE | 2024-10-24 02:55 | W.EDPROG ---
Date of service: 10/23/24 Time of Service: 23:30 Medical Decision Making This patient was signed out to me. Please see previous notes for H&P and initial eval. In brief, 74yo F with hx schizophrenia and dementia presenting for agitation and aggressiveness towards caregivers. Medically cleared, home meds ordered, [facility] evaluated patient and is sending referrals for geripsych facilities. Signed out pending placement. Overnight no acute events. Will be signed out to oncoming physician, plan remains as above. Quality:SDOH Health Related Social Needs: Health related social needs details pt with developmental delay, lives alone, unable to comprehend difficult medical concepts, limited reading. Discharge Plan Discharge Details Chief Complaint: GenMedical Primary Care Provider: Sue Lopez ED Provider: Magaly López Home Meds and New Rx's Prescriptions: No Action quetiapine 100 mg tablet 150 mg PO HS (DME) 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 See Rx Instructions .ROUTE .MEDSUPPLY Qty: 1 0RF Rx Instructions: As directed Excedrin Extra Strength 250-250-65 mg tablet 1 tab PO QDAY PRN bisacodyl 5 mg tablet 5 mg PO DAILY PRN docusate sodium [Colace] 100 mg capsule 100 mg PO QDAY PRN (Reason: constipation) Qty: 60 0RF Rx Instructions: Take 1 tab daily only if no bowel movement in 2 days, per bowel log polyethylene glycol 3350 17 gram/dose powder 17 g PO DAILY PRN (Reason: constipation) Qty: 119 0RF Rx Instructions: Use only if no bowels in 4 days glyburide-metformin 5-500 mg tablet 1 tab PO BID pantoprazole 40 MG tablet,delayed release (DR/EC) 40 mg PO DAILY budesonide-formoterol [Symbicort] 160-4.5 mcg/actuation HFA aerosol inhaler 1 puff INHALATION BID Patient Comments: INHALE 1 PUFF BY MOUTH TWO TIMES A DAY Spiriva Respimat 1.25 mcg/actuation mist 2 puff INHALATION DAILY Patient Comments: INHALE TWO PUFFS BY MOUTH EVERY DAY ferrous gluconate 324 mg (37.5 mg iron) tablet 324 mg PO DAILY Patient Comments: TAKE ONE TABLET BY MOUTH EVERY DAY simvastatin 40 mg tablet 40 mg PO DAILY Patient Comments: TAKE ONE TABLET BY MOUTH EVERY NIGHT nystatin [Klayesta] 100,000 unit/gram powder 1 applic topical BID Qty: 60 0RF Rx Instructions: apply to abdominal folds and umbilicus calcium carbonate-vitamin D3 1 EACH tablet 1 ea PO BID losartan 50 mg tablet 25 mg PO DAILY Patient Comments: TAKE ONE TABLET BY MOUTH EVERY DAY propranolol 40 mg tablet 40 mg PO BID Patient Comments: TAKE ONE TABLET BY MOUTH TWICE A DAY albuterol sulfate 90 mcg/actuation aerosol powdr breath activated 2 inh inhalation Q4H PRNQty: 1 0RF
[2024-10-24 07:36] VITALS: BP 162/71; PULSE 72; RESP 21; TEMP 36.7; O2SAT 98
[2024-10-24] MEDS: Losartan 50 MG TAB 25 MG PO (08:09)
[2024-10-24] MEDS: Pantoprazole 40 MG TABCR PO (08:11)
[2024-10-24] MEDS: Propranolol 40 MG TAB PO ×2 (08:12→20:51)
[2024-10-24] MEDS: glyBURIDE 5 MG TAB PO ×2 (08:12→17:36)
[2024-10-24] MEDS: metFORMIN 500 MG TAB PO ×2 (08:12→17:35)
[2024-10-24] MEDS: Ferrous Gluconate 324 MG TAB PO (08:12)
[2024-10-24] MEDS: Tiotropium Bromide-Respimat 10 PUFF INH 2 PUFF IH (08:13)
[2024-10-24] MEDS: Budesonide/Formoterol 160/4.5 6 GM 60 PUFF INH IH ×2 (08:13→20:55)
[2024-10-24] MEDS: Calcium 600mg/Vit D 200U TAB 1 TAB PO ×2 (09:26→20:52)
--- NOTE | 2024-10-24 11:17 | ED.PROG_ITS ---
Date of service: 10/24/24 Time of Service: 11:18 Medical Decision Making 74-year-old female with past medical history including is currently in the emergency disposition. Care assumed from outgoing provider. Patient is homeless and has resources to care for her. Patient presented to the emergency department last week with similar situation. He was sent at that time to [facility] but long-term housing was unable to be secured now you are back to the same situation. Patient has complex medical history and multiple medications that she takes daily. Do not feel that the patient has the cognitive function to manage medications. She is requiring a significant amount of frequent reassessment from our nurses. Patient is requiring assistance with going to the bathroom, taking medication, going out of her bed and into a chair. Will I do not feel that she has the cognitive functioning to discharge without a long-term care plan. It seems ethically and morally wrong to do so. Given the appearance of the emergency department, our limited capacity due to ongoing construction as well as the significant disruption in the construction is causing, keeping the patient in the emergency department for long-term care seems to be a an adequate treatment plan. The construction noises are causing great disruption to the patient and I think worsening her cognitive functioning secondary to her dementia. After discussion with dry house attendant, care management as well as the hospitalist, the patient will be admitted to the hospital so that the ongoing care that she requires can be done in an a calm and therapeutic environment. Patient is currently also being followed by HS and APS. Quality:SDOH Health Related Social Needs: Health related social needs details pt with developmen luis delay, lives alone, unable to comprehend difficult medical concepts, limited reading. Discharge Plan Disposition Patient Disposition: Admit to [facility] Condition: Fair Discharge Details Clinical Impression: Impaired instrumental activities of daily living, Housing insecurity, Dementia, Hypertension, Difficulty walking, Difficulty participating in care planning, Difficulty managing medication Primary Care Provider: Sue Lopez ED Provider: Fito Tsai Home Meds and New Rx's Prescriptions: No Action quetiapine 100 mg tablet 150 mg PO HS (DME) 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 See Rx Instructions .ROUTE .MEDSUPPLY Qty: 1 0RF Rx Instructions: As directed Excedrin Extra Strength 250-250-65 mg tablet 1 tab PO QDAY PRN bisacodyl 5 mg tablet 5 mg PO DAILY PRN docusate sodium [Colace] 100 mg capsule 100 mg PO QDAY PRN (Reason: constipation) Qty: 60 0RF Rx Instructions: Take 1 tab daily only if no bowel movement in 2 days, per bowel log polyethylene glycol 3350 17 gram/dose powder 17 g PO DAILY PRN (Reason: constipation) Qty: 119 0RF Rx Instructions: Use only if no bowels in 4 days glyburide-metformin 5-500 mg tablet 1 tab PO BID pantoprazole 40 MG tablet,delayed release (DR/EC) 40 mg PO DAILY budesonide-formoterol [Symbicort] 160-4.5 mcg/actuation HFA aerosol inhaler 1 puff INHALATION BID Patient Comments: INHALE 1 PUFF BY MOUTH TWO TIMES A DAY Spiriva Respimat 1.25 mcg/actuation mist 2 puff INHALATION DAILY Patient Comments: INHALE TWO PUFFS BY MOUTH EVERY DAY ferrous gluconate 324 mg (37.5 mg iron) tablet 324 mg PO DAILY Patient Comments: TAKE ONE TABLET BY MOUTH EVERY DAY simvastatin 40 mg tablet 40 mg PO DAILY Patient Comments: TAKE ONE TABLET BY MOUTH EVERY NIGHT nystatin [Klayesta] 100,000 unit/gram powder 1 applic topical BID Qty: 60 0RF Rx Instructions: apply to abdominal folds and umbilicus calcium carbonate-vitamin D3 1 EACH tablet 1 ea PO BID losartan 50 mg tablet 25 mg PO DAILY Patient Comments: TAKE ONE TABLET BY MOUTH EVERY DAY propranolol 40 mg tablet 40 mg PO BID Patient Comments: TAKE ONE TABLET BY MOUTH TWICE A DAY albuterol sulfate 90 mcg/actuation aerosol powdr breath activated 2 inh inhalation Q4H PRNQty: 1 0RF
--- NOTE | 2024-10-24 11:36 | W.PM.HP.N ---
Date of service: 10/24/24 Time of Service: 11:37 Assessment and Plan Assessment and plan (1) Abnormal finding on urinalysis: Status: Acute Assessment and plan: leukocytosis from mild to moderate Urine Cx pending (2) Dementia: Status: Chronic Assessment and plan: Cognitive impairment with memory loss, seems to confabulate to fill in missing history last CT in 2022 denoted: decreased attenuation in the white matter consistent with small vessel ischemic disease. (3) Hypertension: Status: Chronic Assessment and plan: Home dose losartan (4) Difficulty walking: Status: Acute Assessment and plan: PT consult (5) Urinary, incontinence, stress female: Status: Acute Assessment and plan: Frequent skin hygiene to keep dry c/o yeast infection to skin Nystatin (6) Diabetes mellitus: Assessment and plan: On home medicine regimen Gluc AC and HS - A1C 6.6 will continue to monitor and add SSI coverage if needed On home dose statin (7) Hyperlipidemia: Assessment and plan: on home dose statin (8) Sleep disorder: Assessment and plan: On seroquel at HS -home dose melatonin at HS (9) Benign essential tremor: Assessment and plan: On home dose inderal (10) COPD (chronic obstructive pulmonary disease): Assessment and plan: On home medicine regimen (11) On deep vein thrombosis (DVT) prophylaxis: Status: Acute Assessment and plan: Ildefonso Discussed with Dr. Nicole History of Present Illness History of Present Illness Chief Complaint: Altered mental status Narrative: This 74 yo female patient with a history of DM II,social isolation, illiteracy, learning disability, depression recent homelessness, presented to the ED department with agitation and AMS today after first visit on 10/17/24 with dischargedto the [facility] on 10/18/24 s/p PT and mental health evaluation. Report of safety concerns by PCP and plans to contact [facility] to DORA [facility] on 10/21/24. The patient reported not to be compliant with psychiatric medicines, no report of self-arm, suicidal ideation. Wok-up in the ED was negative except for leukocyte esterase in the UA w/o other infection markers. The patient will be admitted to the hospitalist service for medicine adjustment in the setting of schizophrenia, abnormal UA with pending cultures. DNR/DNI as per [facility] on file. The patient denied fevers, dizziness, chills, headache, SOB, chest pain, GI symptoms, dysuria, reporting skin yeast infection / groin and under her breast. Remembers all events in her life happening 7-8 years ago ( family members all dying of CA, 18 yo son ( she gave to him at 56 yo) with life in senior living sentence for murder, daughter ( she cannot recall her name but stated she is a whore). The patient denies NE, stroke, smoking history, GIB history past surgeries but has a left knee surgical scar; reported remote Hx of drinking and DMII. Cannot remember the name of her PCP. Review of Systems All systems reviewed & are unremarkable except as noted in HPI and below PFSH All Active Problems (Updated 10/24/24 @ 15:09 by Ivana Gallardo APRN) On deep vein thrombosis (DVT) prophylaxis (Acute) Abnormal finding on urinalysis (Acute) Difficulty managing medication (Acute) Difficulty participating in care planning (Acute) Difficulty walking (Acute) Hypertension (Chronic) Dementia (Chronic) Housing insecurity (Acute) Social isolation (Acute) Goals of care, counseling/discussion (Acute) Carpal tunnel syndrome (Acute) Urinary, incontinence, stress female (Acute 04/02/13) Hair loss (Acute) Lives alone with help available (Acute) NO DPOA yet; ? state guardian?-pt. confirmed no on both as of 02/21/23 CHI (closed head injury) (Acute) Polypharmacy (Acute) At increased risk for social isolation (Acute) Low energy (Acute) Advance care planning (Acute) Impaired instrumental activities of daily living (Acute) Anemia (Chronic) Diverticulosis (Acute) Learning disability (Chronic) manages her own medications DNR (do not resuscitate) (Chronic) DNI (do not intubate) (Chronic) Constipation (Chronic) Financial difficulties (Chronic) Illiterate (Chronic) able to manage independently Abnormal CT scan (Acute) Family history of colon cancer (Acute) Diarrhea (Acute) Hypochromic microcytic anemia (Acute) Cough (Acute) Knee pain (Acute) Fatigue (Acute) Medical History (Updated 10/24/24 @ 15:09 by Ivana Gallardo APRN) Palliative care patient COPD (chronic obstructive pulmonary disease) Learning disability Chronic low back pain GERD (gastroesophageal reflux disease) Sleep disorder Anxiety Vertigo Onychomycosis Eczema Benign essential tremor Diabetes mellitus HTN (hypertension) Neoplasm of skin (12/29/13) Hyperlipidemia (04/02/13) Depression (04/02/13) Restless legs takes Premapaxil Surgical History H/O arthroscopy of left knee (~01/2007) History of colonoscopy (~02/22/23) Oophrectomy, Both (04/09/13) laparotomy. aoc and kk. Abdominal hysterectomy (~1979) for heavy bleeding. Cholecystectomy laparoscopic 03/2011 Extraction of cataract in [place] Arthroplasty of knee L knee Dr Fuentes bladder suspension for incontinence Family History Sister Heart disease Son Parent-child estrangement nec Under care of senior living service life sentence for murder Daughter Parent-child estrangement nec Substance abuse Other Family history of colorectal cancer Social History Smoking/Tobacco Use Status: Never Smoking risk assessment performed?: Yes Alcohol Intake: former Drug use: Never Substance use type: does not use Caregiver/Support person: No Household members: none Housing: homeless Number of Children: 0 Communication Needs: Cannot Read Education Level: middle school Details: finished 6th grade only Do you need help understanding health information?: Always current occupation: always disabled; worked as [employer] for 5 years in her late teens, early 20s Pets and animals: No Current gender identity: female What is your relationship status?: How often do you talk on the phone with friends or family?: never How often do you get together with friends or relatives?: never Panel score (0-1 are the most socially isolated patients): 0 What type of physical activity do you participate in: walking and irregular exercise Duration: < 15 minutes/day Frequency: 1-2 times per week Special pankaj needs: No Agree to transfusion: Yes Seatbelt use: always Drive intox or ride w/intox pickup driver: No Water heater temp set <120 deg: Yes Working smoke detector in home: Yes Firearms in home: No Do you feel safe at home: Yes Do you feel safe in your relationship?: Yes Additional Social history: Pt has been living in a home with caregiver and is no longer appropriate for this environment Meds Allergies and Home Medications Allergies Allergy/AdvReac Type Severity Reaction Status Date / Time thiopental sodium (From Allergy Skin Rash Verified 10/23/24 18:23 Pentothal) Home Medications ?Medication ?Instructions ?Recorded ?Confirmed ?Type pantoprazole 40 mg tablet,delayed 40 mg PO DAILY 02/20/13 10/23/24 History release calcium 600 mg (as 1 ea PO BID 10/10/17 10/23/24 History carbonate)-vitamin D3 10 mcg (400 unit) tablet quetiapine 100 mg tablet 150 mg PO HS 10/18/20 10/23/24 History inhalational spacing device #1 ea 06/17/21 10/23/24 Rx (Aerochamber MV spacer) albuterol sulfate 90 mcg/actuation 2 inh inhalation Q4H PRN #1 ea 08/22/21 10/23/24 Rx breath activated powder inhaler propranolol 40 mg tablet 40 mg PO BID 08/22/21 10/23/24 History budesonide-formoterol HFA 160 1 puff inhalation BID 07/10/23 10/23/24 History mcg-4.5 mcg/actuation aerosol inhaler (Symbicort) ferrous gluconate 324 mg (37.5 mg 324 mg PO DAILY 07/10/23 10/23/24 History iron) tablet tiotropium bromide 1.25 2 puff inhalation DAILY 07/10/23 10/23/24 History mcg/actuation mist for inhalation (Spiriva Respimat) nwpcgqj-fborejafeaghf-ksbhczug 250 1 tab PO QDAY PRN 03/11/24 10/23/24 History mg-250 mg-65 mg tablet (Excedrin Extra Strength) bisacodyl 5 mg tablet 5 mg PO DAILY PRN 03/11/24 10/23/24 History docusate sodium 100 mg capsule 100 mg PO QDAY PRN constipation 03/14/24 10/23/24 Rx (Colace) #60 caps polyethylene glycol 3350 17 17 g PO DAILY PRN constipation 03/14/24 10/23/24 Rx gram/dose oral powder #119 grams nystatin 100,000 unit/gram topical 1 applic topical BID #60 grams 08/10/24 10/23/24 Rx powder (Klayesta) simvastatin 40 mg tablet 40 mg PO DAILY 08/10/24 10/23/24 History glipizide 5 mg-metformin 500 mg 1 tab PO BID 10/24/24 10/24/24 History tablet losartan 25 mg tablet 25 mg PO DAILY 10/24/24 10/24/24 History Exam Narrative Exam Narrative: Constitutional The patient is sitting in chair comfortable, without acute distress HENMT: Facial structures with normal appearance Neuro:Alert and oriented to self, place, situation, possible confabulation with memory deficit, non-focal, PERRLA on ambient light Resp: Normal respiratory pattern, speaks in full sentences, unlabored breathing, clear lung bilaterally Cardio: regular rhythm, S1, S2, no murmur, capillary refill<3 sec., bilateral radial and dorsalis pedis pulses are positive, palpable GI: Abdomen is not distended, soft and non tender, bowel sounds are present : Negative Costovertebral angle tenderness, no bladder distension Back/spine/Pelvis: No back tenderness, normal alignment Extremities: strength 5/5 to bilateral lower and upper extremities Psych: RASS 0, congruent mood and normal affect. Results Labs 10/23/24 19:05 10/23/24 19:05 Labs: Laboratory Results - last 24 hr 10/23/24 10/23/24 19:05 22:44 WBC 9.49 RBC 4.84 Hgb 13.1 Hct 41.4 MCV 86 MCH 27.1 MCHC 31.6 L RDW 13.6 Plt Count 237 MPV 8.9 Sodium 139 Potassium 3.8 Chloride 103 Carbon Dioxide 31.4 Anion Gap 4.6 BUN 13 Creatinine 0.8 Est GFR (CKD-EPI 2020) 76.79 Glucose 125 H Calcium 9.7 TSH 1.55 Urine Color Yellow Urine Clarity Clear Urine pH 7.0 Ur Specific [place] 1.015 Urine Protein Negative Urine Ketones Negative Urine Blood Negative Urine Nitrite Negative Urine Bilirubin Negative Urine Urobilinogen 0.2 Ur Leukocyte Esterase Moderate H Urine RBC 0-2 Urine WBC 5-10 Ur Epithelial Cells Rare Urine Crystals Negative Urine Bacteria Rare Urine Casts Negative Urine Mucus Negative Urine Other Rare Transitional Ur Culture Indicated? No Urine Glucose Negative Salicylates < 2.8 Urine Opiates Screen Negative Urine Methadone Screen Negative Acetaminophen < 2 Ur Barbiturates Screen Negative Ur Tricyclics Screen Negative Ur Amphetamines Screen Negative U Benzodiazepines Scrn Negative Urine Cocaine Screen Negative Ur THC Screen Negative Ethyl Alcohol < 3.0 Last Vital Signs Temp 36.7 C 10/24/24 07:36 Pulse 72 10/24/24 07:36 Resp 21 10/24/24 07:36 BP 162/71 H 10/24/24 07:36 Pulse Ox 98 10/24/24 07:36 Time Spent Time spent with Patient: >75 minutes Time was spent: preparing to see the patient(eg.review tests), obtaining and/or reviewing separately otained hiistory, ordering medications,tests, procedures, referring, communicating with other health career law clerk, indepentently interpreting results, counseling the patient and care coordination
[2024-10-24 13:08] VITALS: BP 162/71; PULSE 72; RESP 21; TEMP 36.7; O2SAT 98
--- NOTE | 2024-10-24 13:29 | W.PC.ACHO ---
Registration Status: Primary Language: Preferred Language: ED Information & Data Chief Complaint GenMedical 10/23/24 18:19 Chief Complaint GenMedical 10/23/24 18:12 Triage Note [facility] called to evaluate pt 10/23/24 18:12 who is living with a friend. friend stated that they are no longer able to care for her. hx dementia. [facility] not able to evaluate safely. seen here last week. denies pain. Medical / Surgical History (Last Updated 09/16/24 @ 15:16 by Diane Morgan RN) Palliative care patient COPD (chronic obstructive pulmonary disease) Learning disability Chronic low back pain GERD (gastroesophageal reflux disease) Sleep disorder Anxiety Vertigo Onychomycosis Eczema Benign essential tremor Diabetes mellitus HTN (hypertension) Neoplasm of skin (12/29/13) Hyperlipidemia (04/02/13) Depression (04/02/13) Restless legs (Last Reviewed 08/10/24 @ 10:39 by Katie Rabago NP) H/O arthroscopy of left knee (~01/2007) History of colonoscopy (~02/22/23) Oophrectomy, Both (04/09/13) Abdominal hysterectomy (~1979) Cholecystectomy Extraction of cataract Arthroplasty of knee bladder suspension for incontinence Most Recent Vital Signs Temperature 36.7 C 10/24/24 13:08 Temperature Source Axillary 10/24/24 07:36 Pulse 72 10/24/24 13:08 Respiratory Rate 21 10/24/24 13:08 Blood Pressure 162/71 H 10/24/24 13:08 Pulse Oximetry 98 10/24/24 13:08 Oxygen Delivery Method Room Air 10/24/24 07:36 Oxygen Flow Rate 0 10/24/24 07:36 Pain Level 0 10/23/24 18:20 Allergies thiopental sodium (From Pentothal) Allergy (Verified 10/23/24 18:23) Skin Rash Active Medications Generic Name Dose Route Start Last Admin Trade Name Freq PRN Reason Stop Dose Admin Budesonide/Formoterol Fumarate 1 puff 10/24/24 08:30 10/24/24 08:13 Budesonide/Formoterol 160/4.5 6 Gm 60 Puff Inh IH 1 puff BID YARELIS Administration Calcium/Vitamin D 1 tab 10/24/24 08:30 10/24/24 09:26 Calcium 600mg/Vit D 200u Tab PO 1 tab BID YARELIS Administration Ferrous Gluconate 324 mg 10/24/24 08:30 10/24/24 08:12 Ferrous Gluconate 324 Mg Tab PO 324 mg DAILY YARELIS Administration Glyburide 5 mg 10/24/24 08:00 10/24/24 08:12 Glyburide 5 Mg Tab PO 5 mg BID@0800,1700 YARELIS Administration Losartan Potassium 25 mg 10/24/24 08:30 10/24/24 08:09 Losartan 50 Mg Tab PO 25 mg DAILY YARELIS Administration Metformin HCl 500 mg 10/24/24 08:00 10/24/24 08:12 Metformin 500 Mg Tab PO 500 mg BID@0800,1700 YARELIS Administration Pantoprazole Sodium 40 mg 10/24/24 07:30 10/24/24 08:11 Pantoprazole 40 Mg Tabcr PO 40 mg DAILY@0730 YARELIS Administration Propranolol HCl 40 mg 10/24/24 08:30 10/24/24 08:12 Propranolol 40 Mg Tab PO 40 mg BID YARELIS Administration Tiotropium [place] 2 puff 10/24/24 08:30 10/24/24 08:13 Tiotropium [place]-Respimat 10 Puff Inh IH 2 puff DAILY YARELIS Administration Diagnostics 10/23/24 10/23/24 Range/Units 22:44 19:05 WBC 9.49 (4.4-10.8) 10^3/uL RBC 4.84 (3.93-5.22) 10^6/uL Hgb 13.1 (11.2-15.7) g/dL Hct 41.4 (36.0-46.0) % MCV 86 (80-95) fL MCH 27.1 (27.0-33.0) pg MCHC 31.6 L (32.0-36.0) % RDW 13.6 (11.7-14.6) % Plt Count 237 (130-400) 10^3/uL MPV 8.9 (8.0-11.0) fL Sodium 139 (136-145) mmol/L Potassium 3.8 (3.5-5.1) mmol/L Chloride 103 (98-107) mmol/L Carbon Dioxide 31.4 (21.0-32.0) mmol/L Anion Gap 4.6 (3-11) mmol/L BUN 13 (7-18) mg/dL Creatinine 0.8 (0.55-1.02) mg/dL Est GFR (CKD-EPI 2020) 76.79 (mL/min/1.73m2) Glucose 125 H (74-106) mg/dL Calcium 9.7 (8.5-10.1) mg/dL TSH 1.55 (0.36-3.74) uIU/mL Urine Color Yellow (Yellow) Urine Clarity Clear (Clear) Urine pH 7.0 (5-8) Ur Specific [place] 1.015 (1.005-1.025) Urine Protein Negative (Neg-Trace) mg/dL Urine Ketones Negative (Negative) mg/dL Urine Blood Negative (Negative) Urine Nitrite Negative (Negative) Urine Bilirubin Negative (Negative) Urine Urobilinogen 0.2 (Up to 0.2) mg/dL Ur Leukocyte Esterase Moderate H (Negative) Urine RBC 0-2 (0-2) HPF Urine WBC 5-10 (0-5) HPF Ur Epithelial Cells Rare (Negative) HPF Urine Crystals Negative (Negative) HPF Urine Bacteria Rare (Negative) HPF Urine Casts Negative (Negative) LPF Urine Mucus Negative (Negative) Urine Other Rare Transitional (Negative) Ur Culture Indicated? No Urine Glucose Negative (Negative) mg/dL Salicylates < 2.8 (<2.8) mg/dL Urine Opiates Screen Negative (Negative) Urine Methadone Screen Negative (Negative) Acetaminophen < 2 (10-30) ug/mL Ur Barbiturates Screen Negative (Negative) Ur Tricyclics Screen Negative (Negative) Ur Amphetamines Screen Negative (Negative) U Benzodiazepines Scrn Negative (Negative) Urine Cocaine Screen Negative (Negative) Ur THC Screen Negative (Negative) Ethyl Alcohol < 3.0 (<10) mg/dL [id number] Documentation Fingerstick Glucose Start: 10/24/24 08:16 Freq: Status: Active Protocol: Activity Type Activity Date Activity User E-sign Co-sign Detail Recorded Client Recorded Date Recorded By Document 10/24/24 08:15 BKG DAEMON(3) [id number] 10/24/24 08:16 BKG DAEMON(4) Intake and Output - 24 Hour Total 10/23/24 17:57 thru 10/23/24 18:12 Weight 75 kg Falls Risk Assessment Contributing Factors Impairments 10/23/24 18:20 Ambulatory Aids Uses ambulatory device 10/23/24 18:20 Tubes/Lines None 10/23/24 18:20 Gait Evaluation W/any additional score 10/23/24 18:20 Cognition Cognitive impairment 10/23/24 18:20 Fall Total Score 53 10/23/24 18:20 Level of Risk High Risk 10/23/24 18:20 Problems (Last Updated 09/16/24 @ 15:16 by Diane Morgan RN) Difficulty managing medication (Acute) Difficulty participating in care planning (Acute) Difficulty walking (Acute) Hypertension (Chronic) Dementia (Chronic) Housing insecurity (Acute) Impaired instrumental activities of daily living (Acute) v v v v v v v v v Sending and/or Receiving Nurses: Please use comment section below to note any information pertinent to the patient hand-off not included above. Information / Comments: Report received from: Serenity Romo. Report @ 1300.
[2024-10-24 13:32] VITALS: BP 137/68; PULSE 69; RESP 16; TEMP 36.5; O2SAT 96
--- NOTE | 2024-10-24 15:07 | MHPN_ITS ---
Date of service: 10/24/24 Time of Service: 10:45 PHQ-9 Over the last 2 weeks, how often have you been bothered by any of the following problems? 1. Little interest or pleasure in doing things: not at all 2. Feeling down, depressed, or hopeless: not at all 3. Trouble falling or staying asleep, or sleeping too much: several days 4. Feeling tired or having little energy: several days 5. Poor appetite or overeating: not at all 6. Feeling bad about yourself - or that you are a failure or have let yourself and your family down: not at all 7. Trouble concentrating on things, such as reading the newspaper or watching television: not at all 8. Moving or speaking so slowly that other people could have noticed? - Or the opposite - being so fidgety or restless that you have been moving around a lot more than usual: not at all 9. Thoughts that you would be better off or of hurting yourself in some way: not at all Total score: 2 If you checked off any problems, how difficult have these problems made it for you to do your work, take care of things at home, or get along with other people?: somewhat difficult PHQ-9 Results: Negative Source: Developed by Drs. Benson Jurado, aKmille Mckeon, Jose Riggins and colleagues, with an educational ollie from [employer]. Suicide Severity Rate CSSRS Have you wished you were or wished you could go to sleep and not wake up?: No Have you actually had any thoughts of killing yourself?: No CSSRS3 Have you ever done anything, started to do anything or prepared to do anything to end your life?: No Screening Score Total Score: 0 Screening: Negative Mental Health Emergency Note Release [facility] release signed:: Yes Reason for Visit Ms Gaviria is a 74 year old single female who is currently homeless and at the [facility] being moved to [facility]. The client presented as friendly and cooperative throughout this reassessment. The client states that she is doing alright but that she is upset because the person who had been taking care of her no longer wants to. The client states that she ate a good breakfast that was a cheese omelet. The client states that she slept alright but woke up a few times during the night. The client denies current SI or HI. Referrals for psychiatric facilities will stand and client will await placement at the [facility]. In the last 2 weeks has the pt presented for ES prior to today?: Yes, presented at Client Information Client is: New Well Housed: No,status: Homeless Non Suicidal Self Injury Current: No History: No Safety Risk/Harm to Self or Others Current Ideation to Harm Self or Others: No Risk: Does risk to harm exist?: No Duty to warn indicated: No Asssessment/Mental Status Appearance: Well groomed Attitude: Cooperative and Friendly Behavior: Unremarkable Speech: Normal Affect: Cogruent with mood Mood: Stressed and Anxious Thought process: Unremarkable Hallucinations: No Delusions: No Attention: Unremarkable Perception: Not impaired Orientation: Fully orientated Memory: Intact Insight: Fair Judgement: Fair Neurovegetative Symptoms Sleep: Decrease Appetitie: No change Interests: No change Energy: No change Libido: Not applicable Substance Use: Do you use nicotine?: No Have you used substances in the last 7 days?: No Additional Issues: Assaultive/Threatening Behavior: No Medical Concerns: No Client engaged in active self harm w/weapon: No Threatening to run away: No Child reported abuse/neglect: No Voluntarily presenting for services: Yes Domestic violence is a concern: No Impression Ms Gaviria is a 74 year old single female who is currently homeless and at the [facility] hospital being moved to [facility]. The client presented as friendly and cooperative throughout this reassessment. The client states that she is doing alright but that she is upset because the person who had been taking care of her no longer wants to. The client states that she ate a good breakfast that was a cheese omelet. The client states that she slept alright but woke up a few times during the night. The client denies current SI or HI. Referrals for psychiatric facilities will stand and client will await placement at the [facility]. Plan/Disposition Recommended Disposition: Hospitalization facilities contacted. Plan: The client is waiting for in patient treatment at the [facility] zone b. Person reported agreement to plan: Yes Reports/communication Outcome discussed with: ED/Personnel
--- NOTE | 2024-10-24 16:02 | PT.INNT ---
PT Notes Visit Reasons: Dementia Patient not available for PT session. Will be seen by on-call PT tomorrow morning, as ordered.
[2024-10-24 19:26] VITALS: BP 147/57; PULSE 64; RESP 18; TEMP 36.5; O2SAT 98
[2024-10-24] MEDS: Nystatin POWDER 15 GM JAR TP (20:51)
[2024-10-24] MEDS: Simvastatin 40 MG TAB PO (20:52)
[2024-10-24] MEDS: Melatonin 3 MG TAB 9 MG PO (20:52)
[2024-10-24] MEDS: Normal Saline Flush 10 ML SYR IVP (20:52)
[2024-10-24] MEDS: QUEtiapine 100 MG TAB 150 MG PO (20:52)
[2024-10-25 07:27] LABS: Abs Immature Grans 0.03 10^3/uL (0.0-0.06); Absolute Basophil Count 0.05 10^3/uL (0.0-0.2); Absolute Eosinophil Count 0.21 10^3/uL (0.0-0.7); Absolute Monocyte Count 0.77 10^3/uL (0.1-0.8); Absolute Neutrophil Count 6.69 10^3/uL (1.2-6.7); Basophils % 0.5 %; Eosinophils % 2.2 %; HCT 38.4 % (36.0-46.0); HGB 12.5 g/dL (11.2-15.7); Immature Grans % 0.3 %; MCH 26.9 pg (27.0-33.0); MCHC 32.6 % (32.0-36.0); MCV 83 fL (80-95); MPV 9.2 fL (8.0-11.0); Monocytes % 8.1 %; Neutrophils % 70.9 %; Platelet Count 244 10^3/uL (130-400); RBC 4.64 10^6/uL (3.93-5.22); RDW 13.7 % (11.7-14.6); RDW-SD 41.5 fL; WBC 9.45 10^3/uL (4.4-10.8)
[2024-10-25 07:30] VITALS: BP 139/52; PULSE 62; RESP 18; TEMP 36.4; O2SAT 95
[2024-10-25 07:41] LABS: Anion Gap 7.1 mmol/L (3-11); BUN 22 mg/dL (7-18); CO2 29.9 mmol/L (21.0-32.0); CREATININE 0.8 mg/dL (0.55-1.02); Calcium 9.4 mg/dL (8.5-10.1); Chloride 106 mmol/L (98-107); Estimated GFR 76.79 (mL/min/1.73m2); Glucose 118 mg/dL (74-106); Potassium 3.8 mmol/L (3.5-5.1); Sodium 143 mmol/L (136-145)
[2024-10-25] MEDS: glyBURIDE 5 MG TAB PO (07:57)
[2024-10-25] MEDS: Polyethylene Glycol 3350 17 GM PACKET PO (07:57)
[2024-10-25] MEDS: Pantoprazole 40 MG TABCR PO (07:58)
[2024-10-25] MEDS: metFORMIN 500 MG TAB PO ×2 (07:58→17:28)
[2024-10-25] MEDS: Losartan 50 MG TAB 25 MG PO (07:58)
[2024-10-25] MEDS: Calcium 600mg/Vit D 200U TAB 1 TAB PO ×2 (07:58→20:27)
[2024-10-25] MEDS: Propranolol 40 MG TAB PO ×2 (07:58→20:28)
[2024-10-25] MEDS: Ferrous Gluconate 324 MG TAB PO (07:58)
[2024-10-25] MEDS: Normal Saline Flush 10 ML SYR IVP ×3 (07:59→20:29)
--- NOTE | 2024-10-25 09:20 | W.PM.PROGNOT ---
Date of Service Date of service: 10/25/24 Time of Service: 09:21 Assessment and Plan Assessment and plan (1) Abnormal finding on urinalysis: Status: Acute Assessment and plan: leukocyte esterase from mild to moderate Urine Cx shows no growth at 24 hours- no treatment at this time (2) Dementia: Status: Chronic Assessment and plan: Cognitive impairment with memory loss last CT in 2022 denoted: decreased attenuation in the white matter consistent with small vessel ischemic disease. Psych consultation ordered - and pending on Quetiapine 150 mg PO HS No reported sun-downing or delirium (3) Hypertension: Status: Chronic Assessment and plan: BP stable On home dose losartan (4) Difficulty walking: Status: Acute Assessment and plan: PT consult ongoing (5) Urinary, incontinence, stress female: Status: Acute Assessment and plan: Frequent skin hygiene to keep dry c/o yeast infection to skin Continue Nystatin powder (6) Diabetes mellitus: Assessment and plan: Continue home medicine regimen glocose POC 109-156 Ongoing Gluc AC and HS - A1C 6.6 continue to monitor and add SSI coverage if needed (7) Hyperlipidemia: Assessment and plan: continue home dose statin (8) Sleep disorder: Assessment and plan: Continue seroquel at HS -home dose Continue melatonin at HS (9) Benign essential tremor: Assessment and plan: Continue home dose propanolol (10) COPD (chronic obstructive pulmonary disease): Assessment and plan: On home nebs + PRN nebs (11) On deep vein thrombosis (DVT) prophylaxis: Status: Acute Assessment and plan: Continue TEDs Discussed with Dr. Nicole Subjective Subjective Patient reports: no new complaints, tolerating liquids well, tolerating a regular diet, voiding w/o difficulty, flatus and no bowel movement; denies diarrhea, nausea, vomiting, shortness of breath or fever Exam Narrative Exam Narrative: Constitutional The patient is without acute distress Neuro:Alert and oriented to self, place, situation, non-focal, Resp: clear lung bilaterally Cardio: regular rhythm, S1, S2, no murmur, GI: Abdomen is not distended, soft and non tender, bowel sounds are present Extremities: strength 5/5 to bilateral lower and upper extremities Psych: RASS 0, congruent mood and normal affect. Objective Last Vital Signs Temp 36.4 C L 10/25/24 07:30 Pulse 62 10/25/24 07:30 Resp 18 10/25/24 07:30 BP 139/52 L 10/25/24 07:30 Pulse Ox 95 10/25/24 07:30 Laboratory Results - last 24 hr 10/25/24 07:05 WBC 9.45 RBC 4.64 Hgb 12.5 Hct 38.4 MCV 83 MCH 26.9 L MCHC 32.6 RDW 13.7 Plt Count 244 MPV 9.2 Immature Gran % 0.3 Neutrophils % 70.9 Lymphocytes % 18.0 Monocytes % 8.1 Eosinophils % 2.2 Basophils % 0.5 Nucleated RBC % 0.0 Absolute Neutrophils 6.69 Absolute Lymphocytes 1.70 Absolute Monocytes 0.77 Absolute Eosinophils 0.21 Absolute Basophils 0.05 Sodium 143 Potassium 3.8 Chloride 106 Carbon Dioxide 29.9 Anion Gap 7.1 BUN 22 H Creatinine 0.8 Est GFR (CKD-EPI 2020) 76.79 Glucose 118 H Calcium 9.4 Time Spent with Patient Time Spent with Patient: >50 minutes Time was spent: preparing to see the patient(eg.review tests), obtaining and/or reviewing separately otained hiistory, ordering medications,tests, procedures, referring, communicating with other health neurocritical care physician, indepentently interpreting results, counseling the patient and care coordination
--- NOTE | 2024-10-25 09:30 | IN_ITS ---
PT Notes Visit Reasons: Dementia Inpatient Physical Therapy Evaluation Date: 10/25/24 Referring Doctor: Ivana Gallardo NP PT Orders: PT CONSULT: safety consult for d/c; eval for assistive device, fall safety assessment Precautions: fall, standard Patient Profile/Admitting Diagnosis: Isaura is a 74 yo female patient with a history of DM II,social isolation, illiteracy, learning disability, depression and recent homelessness. She presented to the ED yesterday with agitation and AM S; had also presented to ED on 10/17/24 with discharge to the [facility] on 10/18/24 s/p PT and mental health evaluation. Work-up in the ED was negative, and the patient was admitted to the hospitalist service for medicine adjustment in the setting of schizophrenia, abnormal UA with pending cultures. PT consult requested today for safety evaluation. Social History/Home Situation: Isaura reports that she had been living at the [facility], but is now experiencing homelessness. She's hopeful that she'll be going to a rehab facility after this hospitalization. Current Functional Limitations: States that she can walk as far as she'd like, as long as she can sit and rest for a bit. Denies falls. Equipment Owned/DME: 4WW Subjective: Isaura states that she is feeling well. She's looking forward to taking a shower this morning. Objective: General Observation: Resting in recliner. IV in RUE. No additional lines. Mental Status: A&O. Provides vague history, but understands that she's in the hospital. Pain: denies Vital Signs: ROM: Right Upper Extremity: WFL Left Upper Extremity: WFL Right Lower Extremity: WFL Left Lower Extremity: WFL Strength: Right Upper Extremity: Shoulder flexion 3/5. Biceps 5/5. Triceps 5/5. Cw Operator is strong and equal. Left Upper Extremity: Shoulder flexion 3/5. Biceps 5/5. Triceps 5/5. Cw Operator is strong and equal. Right Lower Extremity: Hip flexion 5/5. Quads 5/5. Ankle DF 5/5. Left Lower Extremity: Hip flexion 5/5. Quads 5/5. Ankle DF 5/5. Sensation: intact distally Bed Mobility/Transfers: sit-stand: SBA, with poor safety awareness, and reliance on UE support to 4WW despite cues stand-sit: CGA, with cues for safety Gait: Ambulates 75'x2, with sitting rest in 4WW between. Requires CGA, and demonstrates slow, shuffling gait, with need for cues for advancement of feet R>L. Requires min A for turning to sit in 4WW. Easily distracted during ambulation, resulting in reduced stride length on the right; requires cues for advancement throughout. Balance: Static Sitting: normal Dynamic Sitting: good Static Standing: fair Dynamic Standing: poor Special Tests: Mobility Limitations Standardized Measure [facility] AM-PAC 6 clicks Basic Mobility Inpatient Short Form: Raw Score: 18 Standardized Score: 43.63 [facility] Score: 47% impairment Nguyen Balance Test: 15/56 (score 0-20/56 indicate high fall risk) Informed Consent/Education: Patient instructed in purpose of PT consult and plan of care. Assessment: Patient is a 74 year old female referred to physical therapy services in acute care setting, where she is being managed for for medicine adjustment in the setting of schizophrenia, abnormal UA. Patient presents with gait and balance impairments, in addition to reduced safety awareness and other social considerations given her current lack of housing. She has a 4WW and is able to ambulate short distances, although her Nguyen Balance Test scores are extremely low, placing her at high risk for falls. Her AM-PAC scores support discharge to the community, although she is just above the cutoff. She currently demonstrates the following impairment level findings: 1. Nguyen Balance Test score 15/56 2. gait impairments 3. balance impairment 4. decreased activity tolerance with inability to ambulate community distance without seated rest Impairments are contributing to the following functional limitations: 1. unable to ambulate community distances independently 2. decreased safety awareness 3. decreased balance with high risk for falls Patient is assessed as Moderate 42982 complexity based on the following: History: As above. Complicated by lack of stable housing, lack of safety awareness. Examination: As above Presentation: evolving Decision Making: moderate complexity Goals: Goals X1 week 1. Supine-Sit : supervision 2. Sit-Supine : supervision 3. Sit-Stand : supervision 4. Stand-Sit : supervision 5. Bed-Chair : supervision 6. Chair-Bed : supervision 7. Gait : supervision with FWW x 300' 8. Stairs : supervision with bilat rails x 6 steps Plan of Care/Treatment Plan: 1-2x/day, 7 days/week x 1 week. Plan of care has been reviewed with the MOTION PICTURE NARRATOR providing the service under Physical Therapy direction. Initiate Physical Therapy intervention for strengthening, bed mobility, transfers, gait, stairs, balance training, use of assistive device. DISCHARGE RECOMMENDATIONS: Discharge to community with HH PT Home with services (HH PT) TREATMENT CODE/TIME: Sanjuana Pantoja, PT, DPT [facility] All Active Problems (Updated 10/24/24 @ 15:09 by Ivana Gallardo APRN) On deep vein thrombosis (DVT) prophylaxis (Acute) Abnormal finding on urinalysis (Acute) Difficulty managing medication (Acute) Difficulty participating in care planning (Acute) Difficulty walking (Acute) Hypertension (Chronic) Dementia (Chronic) Housing insecurity (Acute) Social isolation (Acute) Goals of care, counseling/discussion (Acute) Carpal tunnel syndrome (Acute) Urinary, incontinence, stress female (Acute 04/02/13) Hair loss (Acute) Lives alone with help available (Acute) NO DPOA yet; ? state guardian?-pt. confirmed no on both as of 02/21/23 CHI (closed head injury) (Acute) Polypharmacy (Acute) At increased risk for social isolation (Acute) Low energy (Acute) Advance care planning (Acute) Impaired instrumental activities of daily living (Acute) Anemia (Chronic) Diverticulosis (Acute) Learning disability (Chronic) manages her own medications DNR (do not resuscitate) (Chronic) DNI (do not intubate) (Chronic) Constipation (Chronic) Financial difficulties (Chronic) Illiterate (Chronic) able to manage independently Abnormal CT scan (Acute) Family history of colon cancer (Acute) Diarrhea (Acute) Hypochromic microcytic anemia (Acute) Cough (Acute) Knee pain (Acute) Fatigue (Acute) Medical History (Updated 10/24/24 @ 15:09 by Ivana Gallardo APRN) Palliative care patient COPD (chronic obstructive pulmonary disease) Learning disability Chronic low back pain GERD (gastroesophageal reflux disease) Sleep disorder Anxiety Vertigo Onychomycosis Eczema Benign essential tremor Diabetes mellitus HTN (hypertension) Neoplasm of skin (12/29/13) Hyperlipidemia (04/02/13) Depression (04/02/13) Restless legs takes Premapaxil Surgical History H/O arthroscopy of left knee (~01/2007) History of colonoscopy (~02/22/23) Oophrectomy, Both (04/09/13) laparotomy. aoc and kk. Abdominal hysterectomy (~1979) for heavy bleeding. Cholecystectomy laparoscopic 03/2011 Extraction of cataract in [place] Arthroplasty of knee L knee Dr Fuentes bladder suspension for incontinence
[2024-10-25] MEDS: Tiotropium Bromide-Respimat 10 PUFF INH 2 PUFF IH (10:10)
[2024-10-25] MEDS: Budesonide/Formoterol 160/4.5 6 GM 60 PUFF INH IH ×2 (10:10→20:39)
[2024-10-25 11:09] VITALS: BP 134/70; PULSE 61; RESP 20; TEMP 36.5; O2SAT 99
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
--- NOTE | 2024-10-25 13:36 | PHACLINREV_ITS ---
Pharmacy Admission Review Admission Clinical Review Admission Pharmacy Review: On deep vein thrombosis (DVT) prophylaxis (Acute) Abnormal finding on urinalysis (Acute) Difficulty managing medication (Acute) Difficulty participating in care planning (Acute) Difficulty walking (Acute) Housing insecurity (Acute) Urinary, incontinence, stress female (Acute 04/02/13) Impaired instrumental activities of daily living (Acute) thiopental sodium (From Pentothal) Allergy (Verified 10/23/24 18:23) Skin Rash Resuscitation Status DNR/DNI Height 5 ft 3 in Weight 75 kg Pharmacy Admission Review Renal Dosing Renal Dosing: BUN 22 mg/dL (7-18) H 10/25/24 07:05 Creatinine 0.8 mg/dL (0.55-1.02) 10/25/24 07:05 Medications needing adjustments: Reviewed (CrCl 47.14 mL/min) List of meds needing interventions: Current medications are okay Anticoagulation Anticoagulation: Hgb 12.5 g/dL (11.2-15.7) 10/25/24 07:05 Hct 38.4 % (36.0-46.0) 10/25/24 07:05 Plt Count 244 10^3/uL (130-400) 10/25/24 07:05 Creatinine 0.8 mg/dL (0.55-1.02) 10/25/24 07:05 DVT Prophylaxis: Reviewed (TEDs) Relevant Labs Relevant Labs: Sodium 143 mmol/L (136-145) 10/25/24 07:05 Potassium 3.8 mmol/L (3.5-5.1) 10/25/24 07:05 Chloride 106 mmol/L (98-107) 10/25/24 07:05 Electrolytes, C-Reactive P, ESR: Reviewed DM Control DM Control: Glucose 118 mg/dL (74-106) H 10/25/24 07:05 Finger Stick Blood Glucose 109 1113 Finger Stick Blood Glucose 109 1113 Finger Stick Blood Glucose 115 0725 Finger Stick Blood Glucose 115 0725 DM Control: Reviewed Insulin Dosing, Diabetic Medication: Has order for metformin 500mg BID and gli pizide 5mg BID Cardiac Review BP, HR, EF%: Reviewed (BP and HR WNL) List meds needing interventions: has orders for losartan 25mg daily and propranolol 40mg BID QTc Review QTc: Reviewed (432 from 07/20/24 - most recent EKG on file) IV to PO Switch IV Medications: Reviewed Home Meds Home Med List reviewed: Intervened Relevent Home Meds Not ordered & why?: Patient takes metformin/glipizide 500/5mg tablets at home. Orders were put in separately as combination tablet is non formulary. Looks like glipizide order was accidentally put in as glyburide. I changed order to glipizide to match what patient takes at home. Current Meds Current Medication Order Review: Intervened Comments: Changed IV ED access
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
[2024-10-25] MEDS: glipiZIDE 5 MG TAB PO (17:28)
[2024-10-25 19:43] VITALS: BP 147/55; PULSE 62; RESP 20; TEMP 36.9; O2SAT 97
[2024-10-25] MEDS: Melatonin 3 MG TAB 9 MG PO (20:27)
[2024-10-25] MEDS: Simvastatin 40 MG TAB PO (20:28)
[2024-10-25] MEDS: QUEtiapine 100 MG TAB 150 MG PO (20:28)
[2024-10-25] MEDS: Nystatin POWDER 15 GM JAR TP (20:40)
[2024-10-26 07:20] VITALS: BP 112/42; PULSE 66; RESP 20; TEMP 36.6; O2SAT 96
[2024-10-26] MEDS: Budesonide/Formoterol 160/4.5 6 GM 60 PUFF INH IH ×2 (08:02→20:01)
[2024-10-26] MEDS: Tiotropium Bromide-Respimat 10 PUFF INH 2 PUFF IH (08:02)
--- NOTE | 2024-10-26 08:55 | PTTR_ITS ---
PT Notes Visit Reasons: Dementia Inpatient Physical Therapy Treatment Note [facility] Date: 10/26/24 PRECAUTIONS:fall, standard SUBJECTIVE: Isaura states that she is feeling tired, but is agreeable to walking. OBJECTIVE: ? PAIN: denies Therapeutic Activities (51247w7): Direct one-on-one instruction in dynamic activities to improve functional performance. ? BED MOBILITY/TRANSFERS? Sit-stand: SBA with max cues for safety. Practiced sit-stand from recliner x 6 reps with cues for hand placement, with patient demonstrating limited carryover and continued difficulty with equipment management. Performed sit<- >stand from rollator x 4, again requiring max cues for safety. On each rep, despite cues for full turn and hand placement, she performs partial turn with poorly controlled descent to 4WW, requiring mod A to 4WW to prevent walker movement. ? Assisted with toileting, where she requires max cues for safety during transfer and self-care. ? Therapeutic Exercises ([id number]): Direct one-on-one instruction in therapeutic exercises to develop strength, endurance, range of motion and flexibility. Ambulation for improved activity tolerance and safety? Assistive Device: ? ?4WW ? Weight bearing: full Assist: CGA with max cues for stride length ? Distance:? 50'x2, 20'x2 ? Deviation: requires seated rest with increasing frequency as she tires ? Provided skilled instruction in proper exercise performance Provided skilled manual cues to facilitate proper muscle recruitment and/or form ASSESSMENT:? Struggling with safe transfers, particularly when sitting to 4WW as she tires. Requiring assistance for safe transfers today, and remains at high fall risk. PLAN: Continue PT intervention to maximize safety and activity tolerance. Continue transfer training, particularly sitting to 4WW safely. TREATMENT CODE/TIME: [id number] ([id number], [id number]) DISCHARGE RECOMMENDATION: SNF vs HH PT
[2024-10-26] MEDS: Polyethylene Glycol 3350 17 GM PACKET PO (09:16)
[2024-10-26] MEDS: Pantoprazole 40 MG TABCR PO (09:17)
[2024-10-26] MEDS: glipiZIDE 5 MG TAB PO ×2 (09:17→16:26)
[2024-10-26] MEDS: Losartan 50 MG TAB 25 MG PO (09:17)
[2024-10-26] MEDS: Calcium 600mg/Vit D 200U TAB 1 TAB PO ×2 (09:17→20:38)
[2024-10-26] MEDS: metFORMIN 500 MG TAB PO ×2 (09:17→16:26)
[2024-10-26] MEDS: Propranolol 40 MG TAB PO ×2 (09:17→20:40)
[2024-10-26] MEDS: Ferrous Gluconate 324 MG TAB PO (09:17)
[2024-10-26] MEDS: Nystatin POWDER 15 GM JAR TP ×2 (09:20→20:43)
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
[2024-10-26 11:35] VITALS: BP 118/41; PULSE 58; RESP 20; TEMP 36.6; O2SAT 97
--- NOTE | 2024-10-26 12:54 | PGE_ITS ---
Date of Service Date of service: 10/26/24 Time of Service: 12:54 Assessment and Plan Assessment and plan (1) Dementia: Status: Chronic Assessment and plan: Cognitive impairment with memory loss last CT in 2022 denoted: decreased attenuation in the white matter consistent with small vessel ischemic disease. Psych consultation ordered -and completed no indication for inpatient psychiatric management on Quetiapine 150 mg PO HS, can add 12.5 mg p.o. twice daily if needed Has not had any behavioral disturbances while being hospitalized No reported sun-downing or delirium (2) Hypertension: Status: Chronic Assessment and plan: BP stable On home dose losartan (3) Difficulty walking: Status: Acute Assessment and plan: PT consult ongoing (4) Urinary, incontinence, stress female: Status: Acute Assessment and plan: Frequent skin hygiene to keep dry c/o yeast infection to skin Continue Nystatin powder (5) Diabetes mellitus: Assessment and plan: Continue home medicine regimen glocose POC 109-156 Ongoing Gluc AC and HS - A1C 6.6 continue to monitor and add SSI coverage if needed (6) Hyperlipidemia: Assessment and plan: continue home dose statin (7) Sleep disorder: Assessment and plan: Continue seroquel at HS -home dose Continue melatonin at HS (8) Benign essential tremor: Assessment and plan: Continue home dose propanolol (9) COPD (chronic obstructive pulmonary disease): Assessment and plan: On home nebs + PRN nebs (10) On deep vein thrombosis (DVT) prophylaxis: Status: Acute Assessment and plan: Continue TEDs Discussed with Dr. Huitron Subjective Subjective Patient reports: no new complaints, tolerating liquids well, tolerating a regular diet, bowel movement and afebrile; denies shortness of breath Exam Narrative Exam Narrative: Elderly female of stated age no acute distress head is atraumatic eyes nonicteric noninjected oral mucosa is moist neck is supple full range of motion respirations even and unlabored cardiovascular regular rate and rhythm abdomen benign extremities without edema she is awake alert oriented to person poor historian no behavioral disturbances Objective Last Vital Signs Temp 36.6 C 10/26/24 11:35 Pulse 58 L 10/26/24 11:35 Resp 20 10/26/24 11:35 BP 118/41 L 10/26/24 11:35 Pulse Ox 97 10/26/24 11:35 Time Spent with Patient Time Spent with Patient: 35-49 minutes Time was spent: preparing to see the patient(eg.review tests), obtaining and/or reviewing separately otained hiistory, ordering medications,tests, procedures, referring, communicating with other health women's health care nurse practitioner and indepentently interpreting results
--- NOTE | 2024-10-26 13:51 | MHPN_ITS ---
Date of service: 10/26/24 Time of Service: 10:15 Mental Health Emergency Note Release [facility] release signed:: Yes Reason for Visit Reassessment. Client is currently on the [facility] surge floor awaiting placement. In the last 2 weeks has the pt presented for ES prior to today?: Unknown Client Information Well Housed: No,status: Homeless Non Suicidal Self Injury Current: No History: No Safety Risk/Harm to Self or Others Current Ideation to Harm Self or Others: No Risk: Does risk to harm exist?: No Risk: Low Risk Duty to warn indicated: No Asssessment/Mental Status Appearance: Unremarkable Attitude: Friendly Behavior: Unremarkable Speech: Normal Affect: Cogruent with mood Mood: Other (good) Thought process: Goal directed Hallucinations: No Delusions: No Attention: Unremarkable Perception: Not impaired Orientation: Fully orientated Memory: Intact Insight: Fair Judgement: Fair Neurovegetative Symptoms Sleep: Increase Appetitie: Increase Interests: No change Energy: No change Libido: Not applicable Impression The client is a 74 year old single biological female who is currently homeless and at the [facility] the [facility]. The client presents in a well groomed appearance. Affect is congruent with mood. Client is cooperative and friendly with this clinician; they report their mood as good. Thought process appears goal directed. There are no delusions observed. The client denied auditory and visual hallucinations. Cognitive assessment reveals orientation to person, place and time. The client is spending her time watching TV and requested if someone could give her a word search book. The client denies SI, HI and NSSI. The client reported to be dozing off prior to this clinicians arrival. Plan/Disposition Recommended Disposition: Hospitalization facilities contacted. Plan: The client is waiting on the [facility] surge floor awaiting for placement to be secure d. Reports/communication Outcome discussed with: ED/Personnel
[2024-10-26 14:46] VITALS: BP 107/63; PULSE 64; RESP 20; TEMP 36.8; O2SAT 98
[2024-10-26] MEDS: Melatonin 3 MG TAB 9 MG PO (20:38)
[2024-10-26] MEDS: QUEtiapine 100 MG TAB 150 MG PO (20:39)
[2024-10-26] MEDS: Simvastatin 40 MG TAB PO (20:40)
[2024-10-26 20:48] VITALS: BP 136/68; PULSE 68; RESP 20; TEMP 36.8; O2SAT 96
[2024-10-27 06:30] LABS: Abs Immature Grans 0.03 10^3/uL (0.0-0.06); Absolute Basophil Count 0.06 10^3/uL (0.0-0.2); Absolute Eosinophil Count 0.21 10^3/uL (0.0-0.7); Absolute Lymphocyte Count 1.93 10^3/uL (1.2-3.4); Absolute Monocyte Count 0.66 10^3/uL (0.1-0.8); Basophils % 0.6 %; Eosinophils % 2.3 %; HCT 38.1 % (36.0-46.0); HGB 12.4 g/dL (11.2-15.7); Immature Grans % 0.3 %; Lymphocytes % 20.8 %; MCH 27.2 pg (27.0-33.0); MCHC 32.5 % (32.0-36.0); MCV 84 fL (80-95); MPV 9.2 fL (8.0-11.0); Monocytes % 7.1 %; Neutrophils % 68.9 %; Platelet Count 232 10^3/uL (130-400); RBC 4.56 10^6/uL (3.93-5.22); RDW 13.4 % (11.7-14.6); RDW-SD 41.1 fL; WBC 9.29 10^3/uL (4.4-10.8)
[2024-10-27 06:46] LABS: Anion Gap 9.7 mmol/L (3-11); BUN 19 mg/dL (7-18); CO2 29.3 mmol/L (21.0-32.0); CREATININE 0.8 mg/dL (0.55-1.02); Calcium 9.2 mg/dL (8.5-10.1); Chloride 106 mmol/L (98-107); Estimated GFR 76.79 (mL/min/1.73m2); Glucose 111 mg/dL (74-106); Sodium 145 mmol/L (136-145)
[2024-10-27 07:54] VITALS: BP 143/71; PULSE 66; RESP 16; TEMP 36.3; O2SAT 98
[2024-10-27] MEDS: Budesonide/Formoterol 160/4.5 6 GM 60 PUFF INH IH ×2 (08:28→19:44)
[2024-10-27] MEDS: Tiotropium Bromide-Respimat 10 PUFF INH 2 PUFF IH (08:29)
[2024-10-27] MEDS: Ferrous Gluconate 324 MG TAB PO (09:06)
[2024-10-27] MEDS: glipiZIDE 5 MG TAB PO ×2 (09:06→17:11)
[2024-10-27] MEDS: Propranolol 40 MG TAB PO ×2 (09:06→20:35)
[2024-10-27] MEDS: Losartan 50 MG TAB 25 MG PO (09:07)
[2024-10-27] MEDS: Pantoprazole 40 MG TABCR PO (09:07)
[2024-10-27] MEDS: Nystatin POWDER 15 GM JAR TP ×2 (09:07→20:33)
[2024-10-27] MEDS: metFORMIN 500 MG TAB PO ×2 (09:07→17:11)
[2024-10-27] MEDS: Calcium 600mg/Vit D 200U TAB 1 TAB PO ×2 (09:07→20:36)
--- NOTE | 2024-10-27 10:43 | PTTR_ITS ---
PT Notes Visit Reasons: Dementia Inpatient Physical Therapy Treatment Note [facility] Date: 10/27/24 SUBJECTIVE: AM:Isaura reports that she is concerned that she may lose her feet. They told me that if I don't exercise, I will lose my legs. PM: Isaura continues to express concerns over losing her feet if she doesn't exercise. I wish they would give me something for dizziness. When I asked her if she was dizzy, she stated No, not now. OBJECTIVE: []? VITALS: ?monitored by [facility]. Therapeutic Activities (43345q7): Direct one-on-one instruction in dynamic activities to improve functional performance. ? BED MOBILITY/TRANSFERS? seated in recliner.? Sit-stand: S? Stand-sit: S ? GAIT? Assistive Device: 4ww ? Weight bearing: FWB Assist: SBA/CGA ? Distance:?approx 65'x2 in am. 70'x2 in pm? Deviation: 1 seated rest break in am, 3 seated rest breaks in pm. Short shuffled steps ? Therapeutic Exercises ([id number]): Direct one-on-one instruction in therapeutic exercises to develop strength, endurance, range of motion and flexibility. ? Exercises seated: AP, LAQ, marching, hip ab/add x10. SLR (in recliner) x10. Mini squats x5. HR x5 (at walker) in both am and pm sessions. Toileted: CGA for safety during self care(am and pm) ASSESSMENT:?tolerated session well. Very concerned that she may lose her legs. She had me check them a few times t/o session. Toes nails look good. Color of LE look good. No noted discolorations or swelling. She denies pain. I am not sure where this concern is coming from. Maybe possible she misunderstood the term use it or lose it in regards to muscle strength and functional mobility? No LOB or SOB noted during either session today. She did report fatigue in her legs and required one sitting rest break x approx 30 sec in the am, and 3x approx 20-30 sec in pm. PLAN: will continue to work on her strength and endurance as well as improving her functional mobility. TREATMENT CODE/TIME: 25 min am, 25 min pm. ([id number], [id number]) DISCHARGE RECOMMENDATION: SNF
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
--- NOTE | 2024-10-27 12:34 | W.PM.PROGNOT ---
Date of Service Date of service: 10/27/24 Time of Service: 12:34 Assessment and Plan Assessment and plan (1) Dementia: Status: Chronic Assessment and plan: Cognitive impairment with memory loss last CT in 2022 denoted: decreased attenuation in the white matter consistent with small vessel ischemic disease. Psych consultation ordered -and completed no indication for inpatient psychiatric management on Quetiapine 150 mg PO HS, can add 12.5 mg p.o. twice daily if needed Has not had any behavioral disturbances while being hospitalized No reported sun-downing or delirium (2) Hypertension: Status: Chronic Assessment and plan: BP stable On home dose losartan (3) Difficulty walking: Status: Acute Assessment and plan: PT consult ongoing (4) Urinary, incontinence, stress female: Status: Acute Assessment and plan: Frequent skin hygiene to keep dry c/o yeast infection to skin Continue Nystatin powder (5) Diabetes mellitus: Assessment and plan: Continue home medicine regimen glocose POC 109-156 Ongoing Gluc AC and HS - A1C 6.6 continue to monitor and add SSI coverage if needed (6) Hyperlipidemia: Assessment and plan: continue home dose statin (7) Sleep disorder: Assessment and plan: Continue seroquel at HS -home dose Continue melatonin at HS (8) Benign essential tremor: Assessment and plan: Continue home dose propanolol (9) COPD (chronic obstructive pulmonary disease): Assessment and plan: On home nebs + PRN nebs (10) On deep vein thrombosis (DVT) prophylaxis: Status: Acute Assessment and plan: Continue TEDs Discussed with Dr. Huitron Subjective Subjective Patient reports: no new complaints, tolerating liquids well, tolerating a regular diet and afebrile; denies shortness of breath Interval history since last seen: No behavioral disturbances remains medically stable Exam Const General: cooperative, healthy appearing, comfortable and no acute distress Orientation: alert, awake, oriented to person and oriented to place [facility] Head: normal to inspection, normocephalic and atraumatic Ears: hearing grossly normal bilaterally General nose exam: external nose normal Mouth: moist mucous membranes Eyes General: appearance normal, both eyes and all related structures Chest Chest: normal inspection of the chest Resp Effort & Inspection: normal respiratory effort Cardio Rate: regular rate Rhythm: regular rhythm GI Inspection: normal to inspection and distended Palpation: soft, no guarding and nontender Neuro General: patient alert, moves all extremities and no focal motor deficits Speech: speech normal Gait: gait assisted Motor: muscle tone normal throughout and strength 5/5 throughout Extrem General: normal to inspection and full ROM Psych Mood: congruent mood Attitude: cooperative Objective Last Vital Signs Temp 36.3 C L 10/27/24 07:54 Pulse 66 10/27/24 07:54 Resp 16 10/27/24 07:54 BP 143/71 H 10/27/24 07:54 Pulse Ox 98 10/27/24 07:54 Laboratory Results - last 24 hr 10/27/24 06:14 WBC 9.29 RBC 4.56 Hgb 12.4 Hct 38.1 MCV 84 MCH 27.2 MCHC 32.5 RDW 13.4 Plt Count 232 MPV 9.2 Immature Gran % 0.3 Neutrophils % 68.9 Lymphocytes % 20.8 Monocytes % 7.1 Eosinophils % 2.3 Basophils % 0.6 Nucleated RBC % 0.0 Absolute Neutrophils 6.40 Absolute Lymphocytes 1.93 Absolute Monocytes 0.66 Absolute Eosinophils 0.21 Absolute Basophils 0.06 Sodium 145 Potassium 4.0 Chloride 106 Carbon Dioxide 29.3 Anion Gap 9.7 BUN 19 H Creatinine 0.8 Est GFR (CKD-EPI 2020) 76.79 Glucose 111 H Calcium 9.2 Time Spent with Patient Time Spent with Patient: 35-49 minutes Time was spent: obtaining and/or reviewing separately otained hiistory, ordering medications,tests, procedures, indepentently interpreting results and counseling the patient
[2024-10-27 15:35] VITALS: BP 107/72; PULSE 62; RESP 20; TEMP 36; O2SAT 100
[2024-10-27 19:40] VITALS: BP 128/60; PULSE 67; RESP 16; TEMP 36; O2SAT 97
[2024-10-27] MEDS: QUEtiapine 100 MG TAB 150 MG PO (20:34)
[2024-10-27] MEDS: Melatonin 3 MG TAB 9 MG PO (20:35)
[2024-10-27] MEDS: Simvastatin 40 MG TAB PO (20:35)
[2024-10-28 07:48] VITALS: BP 127/53; PULSE 68; RESP 17; TEMP 36.5; O2SAT 95
[2024-10-28] MEDS: Nystatin POWDER 15 GM JAR TP (08:13)
[2024-10-28] MEDS: glipiZIDE 5 MG TAB PO (08:13)
[2024-10-28] MEDS: Polyethylene Glycol 3350 17 GM PACKET PO (08:13)
[2024-10-28] MEDS: metFORMIN 500 MG TAB PO (08:14)
[2024-10-28] MEDS: Calcium 600mg/Vit D 200U TAB 1 TAB PO (08:15)
[2024-10-28] MEDS: Propranolol 40 MG TAB PO (08:15)
[2024-10-28] MEDS: Pantoprazole 40 MG TABCR PO (08:15)
[2024-10-28] MEDS: Losartan 50 MG TAB 25 MG PO (08:16)
[2024-10-28] MEDS: Ferrous Gluconate 324 MG TAB PO (08:16)
[2024-10-28] MEDS: Budesonide/Formoterol 160/4.5 6 GM 60 PUFF INH IH (08:53)
[2024-10-28] MEDS: Tiotropium Bromide-Respimat 10 PUFF INH 2 PUFF IH (08:54)
--- NOTE | 2024-10-28 11:03 | PTTR_ITS ---
PT Notes Visit Reasons: Dementia Inpatient Physical Therapy Treatment Note [facility] Date: 10/28/24 SUBJECTIVE: AM:Pt reporting her thighs are sore today PM: Pt reports she is going to [facility] to live. OBJECTIVE: AM:presented seated in her chair finishing oral care. ? PM: seated in chair sneakers on weepy regarding leaving the hospital VITALS: ?monitored by nsg. Therapeutic Activities (45708): Direct one-on-one instruction in dynamic activities to improve functional performance. ?? Provided skilled cues and instruction on performance and technique throughout. Patient education regarding pacing and breathing techniques to maximize activity tolerance? BED MOBILITY/TRANSFERS? (am/pm session) seated in recliner.? Sit-stand: Supervision with cues to push up from chair ? Stand-sit: SBA cues to lock brakes prior to sitting? Toileted: SBA for safety during self care (am and pm) Ambulation ? Facilitated safe and correct performance of level surface ambulation covering a distance of 65feet x4( 1st session) 25feet x 2 ( 2nd session) with sit rests on 4WW using use 4WW with SBA/CGA. pt reported soreness and fatigue in B thighs. Denied headache, chest pain, and lightheadedness throughout activity. Minimal verbal cueing provided for AD management, directional changes, and posture.? Deviation: Short shuffled steps ? (AM Session) Therapeutic Exercises (31583): Direct one-on-one instruction in therapeutic exercises to develop strength, endurance, range of motion and flexibility. ?Exercises seated: AP, LAQ, marching, hip ab/add x10. SLR (in recliner) x10. Mini squats x5. HR x5 (at walker) in both am and pm sessions. ASSESSMENT:?Pt tolerate increase functional activity tolerance in am session. Pt with improved stability. Pt instructed to position 4WW against a wall then put brakes on prior to sitting to ensure the 4WW does not move during transitions sit to from stand during rest periods. Pt required cues for all rest periods to perform 4WW against wall. Pt did not demonstrate carryover of this technique within session. PLAN: will continue to work on her strength and endurance as well as improving her functional mobility until discharge. TREATMENT CODE/TIME:1st session 15000,16662/ [id number] 2nd session: [id number] DISCHARGE RECOMMENDATION: SNF
--- NOTE | 2024-10-28 11:58 | PDOC.CMPRO ---
Date of service: 10/28/24 Time of Service: 11:58 Care Management Progress Note Progress Note Text Progress Note Text: CM sent referrals to [facility] and [facility], and will send the referral to additional facilities, including [facility], [facility] and [facility]. Discharge Anticipated Barriers to Discharge: None Identified Patient/Family Education Needs: Review discharge instructions, discuss Ask Me Three Transportation: RCT Plan: Anticipate Isaura will transfer to SNF for short term rehab once a bed is available. Referrals are pending at [facility] and [facility]. She will transport via RCT when ready. She will follow up with her PCP and discharge plan of care. CM will continue to follow. Social Determinants of Health Screening Social Determinants of health last assessed in clinic: 10/27/24 Will the Patient Participate in the Screening?: Yes Do you worry about having a steady place to live?: yes What is your living situation today?: I do not have steady housing Problems where you live: other In the past 12 months, have you had to go without electric, gas, oil or water in your home?: no Has lack of transportation kept you from medical appointments or from doing things needed for daily living?: no Has anyone in your life made you feel unsafe or unsupported?: yes How hard is it for you to pay for the very basics like food, housing, medical care, and heating? Would you say it is:: Somewhat hard Do you want help finding or keeping work or a job?: I do not need or want help If for any reason you need help with day-to-day activities such as bathing, preparing meals, shopping, managing finances, etc., do you get the help you need?: I need a lot more help How often do you feel lonely or isolated from those around you?: Never Do you speak a language other than Micronesian at home?: No Does the patient want assistance with any of the above?: Yes Comments: CM sending referral to [facility] for support with placement. Health Related Social Needs Health related social needs: inadequate housing (Z59.1), housing instability, housed, with risk of homelessness (Z59.811), problems related to housing/economic circumstances (Z59.89) and problems with daily activities (Z73.9) Health related social needs details: homeless
--- NOTE | 2024-10-28 12:14 | W.PM.DS.N ---
Date of service: 10/28/24 Time of Service: 12:14 DS: Diagnosis Discharge Diagnosis (1) Dementia: Status: Chronic (2) Hypertension: Status: Chronic (3) Difficulty walking: Status: Acute (4) Urinary, incontinence, stress female: Status: Acute (5) Diabetes mellitus: (6) Hyperlipidemia: (7) Sleep disorder: (8) Benign essential tremor: (9) COPD (chronic obstructive pulmonary disease): Discharge Plan Disposition Patient Disposition: [facility]) Condition: Stable Condition: Stable Discharge Details Reason For Visit: Dementia Admit Date/Time: 10/24/24 12:12 Admit Provider: Rojas Nicole Attending Provider: Rojas Nicole Primary Care Provider: Sue Lopez Hospital Course Hospital Course: This is a 74-year-old female patient past medical history significant for dementia, depression, diabetes mellitus type 2 who presented to the emergency department with reports of agitation and altered mental status. Her medical screening showed no acute medical conditions. After further investigation and history taking it is noted that she has had multiple reports filed with adult protective services and there was safety about safe discharge planning. She was admitted under the hospitalist services for further evaluation of concern for a mental health issue. She did undergo a psychiatric consultation and no evidence of psychiatric disorder identified. Recommendations were to continue home medications. She does have a history of cognitive impairment and recommendations were placed for a daily dose of Seroquel if needed but she has not had any behavioral disturbances while being observed on the medical surgical unit for the past several days. She has remained hemodynamically stable. She has been eating and drinking and bowels and bladder functioning. She has remained awake alert oriented to person, she is a poor historian but has exhibited no behavioral disturbance at all. His management has sent referrals to local rehab centers and she has been accepted at the [facility]. Routine follow-up with primary care provider. discharge discussed with Dr Huitron Home Meds and New Rx's Prescriptions: Continued quetiapine 100 mg tablet 150 mg PO HS (DME) 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 See Rx Instructions .ROUTE .MEDSUPPLY Qty: 1 0RF Rx Instructions: As directed Excedrin Extra Strength 250-250-65 mg tablet 1 tab PO QDAY PRN bisacodyl 5 mg tablet 5 mg PO DAILY PRN docusate sodium [Colace] 100 mg capsule 100 mg PO QDAY PRN (Reason: constipation) Qty: 60 0RF Rx Instructions: Take 1 tab daily only if no bowel movement in 2 days, per bowel log polyethylene glycol 3350 17 gram/dose powder 17 g PO DAILY PRN (Reason: constipation) Qty: 119 0RF Rx Instructions: Use only if no bowels in 4 days pantoprazole 40 MG tablet,delayed release (DR/EC) 40 mg PO DAILY budesonide-formoterol [Symbicort] 160-4.5 mcg/actuation HFA aerosol inhaler 1 puff INHALATION BID Patient Comments: INHALE 1 PUFF BY MOUTH TWO TIMES A DAY Spiriva Respimat 1.25 mcg/actuation mist 2 puff INHALATION DAILY Patient Comments: INHALE TWO PUFFS BY MOUTH EVERY DAY ferrous gluconate 324 mg (37.5 mg iron) tablet 324 mg PO DAILY Patient Comments: TAKE ONE TABLET BY MOUTH EVERY DAY simvastatin 40 mg tablet 40 mg PO DAILY Patient Comments: TAKE ONE TABLET BY MOUTH EVERY NIGHT nystatin [Klayesta] 100,000 unit/gram powder 1 applic topical BID Qty: 60 0RF Rx Instructions: apply to abdominal folds and umbilicus glipizide-metformin 5-500 mg tablet 1 tab PO BID Patient Comments: TAKE ONE TABLET BY MOUTH TWICE A DAY losartan 25 mg tablet 25 mg PO DAILY Patient Comments: TAKE ONE TABLET BY MOUTH EVERY DAY calcium carbonate-vitamin D3 1 EACH tablet 1 ea PO BID propranolol 40 mg tablet 40 mg PO BID Patient Comments: TAKE ONE TABLET BY MOUTH TWICE A DAY albuterol sulfate 90 mcg/actuation aerosol powdr breath activated 2 inh inhalation Q4H PRNQty: 1 0RF Discharge Instructions Instructions: Dementia (including Alzheimer disease) Additional Instructions: take medications as directed Referrals: Sue Lopez [Primary Care Provider] - 11/12/24 10:40 am (With Dr. Hazel. ) Activity:: Activity as Tolerated Equipment/Supplies:: No Equipment Needed Diet:: As Tolerated Discharge Orders Discharge Orders: Discharge Order (Routine); Ordered 10/28/24 Ordered By: Kavita Rojas DS: Summary Time Spent with Patient providing and/or coordinating discharge services: Greater than 30 minutes Status at Discharge Functional status at discharge: independent ambulation Overall status at discharge: patient is back to baseline Mental Status: mental status grossly normal Speech and Movement: speech and movement normal Mood: congruent mood Affect: normal affect Quality:SDOH Health Related Social Needs: Health related social needs inadequate housing (Z59.1), housing instability, housed, with risk of homelessness (Z59.811), problems related to housing/economic circumstances (Z59.89), problems with daily activities (Z73.9) Health related social needs details homeless Health related social needs details: homeless Referrals and interventions: [facility] referral Exam Const General: cooperative, healthy appearing, comfortable and no acute distress Orientation: alert, awake, oriented to person and oriented to place [facility] Head: normal to inspection, normocephalic and atraumatic Ears: hearing grossly normal bilaterally General nose exam: external nose normal Mouth: moist mucous membranes Eyes General: appearance normal, both eyes and all related structures Chest Chest: normal inspection of the chest Resp Effort & Inspection: normal respiratory effort Cardio Rate: regular rate Rhythm: regular rhythm GI Inspection: normal to inspection and distended Palpation: soft, no guarding and nontender Neuro General: patient alert, moves all extremities and no focal motor deficits Speech: speech normal Gait: gait assisted Motor: muscle tone normal throughout and strength 5/5 throughout Extrem General: normal to inspection and full ROM Psych Mental Status: mental status grossly normal Speech and Movement: speech and movement normal Mood: congruent mood Affect: normal affect Attitude: cooperative DS: Data Vitals/I&O Vitals and I&O: Vital Signs Temperature 36.5 C 10/28/24 07:48 Temperature Source Temporal Artery Scan 10/28/24 07:48 Pulse 68 10/28/24 07:48 Pulse Rhythm Regular 10/24/24 13:32 Respiratory Rate 17 10/28/24 07:48 Respiratory Effort Normal, Non-Labored 10/24/24 13:32 Respiratory Depth Normal 10/24/24 13:32 Respiratory Pattern Normal 10/24/24 13:32 Blood Pressure 127/53 L 10/28/24 07:48 Blood Pressure Mean 77 10/28/24 07:48 Pulse Oximetry 95 10/28/24 07:48 Oxygen Delivery Method Room Air 10/28/24 07:48 Oxygen Flow Rate 0 10/28/24 07:48 Pain Level 0 10/27/24 15:35 Comment RN notified 10/27/24 15:35 Intake & Output 10/27/24 10/28/24 10/28/24 23:59 11:59 23:59 Intake Total 960 / 960 Output Total 1550 / 2550 150 / 150 Balance -1550 / -2070 810 / 810 Intake: Oral 960 / 960 Output: Urine 1550 / 2550 150 / 150 Other: Urine Color Pale Yellow Urine Appearance Clear Clear Urine Odor None PFSH All Active Problems (Updated 10/24/24 @ 15:09 by Ivana Gallardo APRN) On deep vein thrombosis (DVT) prophylaxis (Acute) Abnormal finding on urinalysis (Acute) Difficulty managing medication (Acute) Difficulty participating in care planning (Acute) Difficulty walking (Acute) Hypertension (Chronic) Dementia (Chronic) Housing insecurity (Acute) Social isolation (Acute) Goals of care, counseling/discussion (Acute) Carpal tunnel syndrome (Acute) Urinary, incontinence, stress female (Acute 04/02/13) Hair loss (Acute) Lives alone with help available (Acute) NO DPOA yet; ? state guardian?-pt. confirmed no on both as of 02/21/23 CHI (closed head injury) (Acute) Polypharmacy (Acute) At increased risk for social isolation (Acute) Low energy (Acute) Advance care planning (Acute) Impaired instrumental activities of daily living (Acute) Anemia (Chronic) Diverticulosis (Acute) Learning disability (Chronic) manages her own medications DNR (do not resuscitate) (Chronic) DNI (do not intubate) (Chronic) Constipation (Chronic) Financial difficulties (Chronic) Illiterate (Chronic) able to manage independently Abnormal CT scan (Acute) Family history of colon cancer (Acute) Diarrhea (Acute) Hypochromic microcytic anemia (Acute) Cough (Acute) Knee pain (Acute) Fatigue (Acute) Medical History (Updated 10/24/24 @ 15:09 by Ivana Gallardo APRN) Palliative care patient COPD (chronic obstructive pulmonary disease) Learning disability Chronic low back pain GERD (gastroesophageal reflux disease) Sleep disorder Anxiety Vertigo Onychomycosis Eczema Benign essential tremor Diabetes mellitus HTN (hypertension) Neoplasm of skin (12/29/13) Hyperlipidemia (04/02/13) Depression (04/02/13) Restless legs takes Premapaxil Surgical History H/O arthroscopy of left knee (~01/2007) History of colonoscopy (~02/22/23) Oophrectomy, Both (04/09/13) laparotomy. aoc and kk. Abdominal hysterectomy (~1979) for heavy bleeding. Cholecystectomy laparoscopic 03/2011 Extraction of cataract in [place] Arthroplasty of knee L knee Dr Fuentes bladder suspension for incontinence Family History Sister Heart disease Son Parent-child estrangement nec Under care of long term service life sentence for murder Daughter Parent-child estrangement nec Substance abuse Other Family history of colorectal cancer Social History Smoking/Tobacco Use Status: Never Smoking risk assessment performed?: Yes Alcohol Intake: former Drug use: Never Substance use type: does not use Caregiver/Support person: No Household members: none Housing: homeless Number of Children: 0 Communication Needs: Cannot Read Education Level: middle school Details: finished 6th grade only Do you need help understanding health information?: Always current occupation: always disabled; worked as [employer] for 5 years in her late teens, early 20s Pets and animals: No Current gender identity: female What is your relationship status?: How often do you talk on the phone with friends or family?: never How often do you get together with friends or relatives?: never Panel score (0-1 are the most socially isolated patients): 0 What type of physical activity do you participate in: walking and irregular exercise Duration: < 15 minutes/day Frequency: 1-2 times per week Special pankaj needs: No Agree to transfusion: Yes Seatbelt use: always Drive intox or ride w/intox sprinkling truck driver: No Water heater temp set <120 deg: Yes Working smoke detector in home: Yes Firearms in home: No Do you feel safe at home: Yes Do you feel safe in your relationship?: Yes Additional Social history: Pt has been living in a home with caregiver and is no longer appropriate for this environment Time Spent with Patient Time Spent with Patient: 45-69 minutes Time was spent: preparing to see the patient(eg.review tests), obtaining and/or reviewing separately otained hiistory, ordering medications,tests, procedures, referring, communicating with other health nursing care partner and care coordination
--- NOTE | 2024-10-28 12:18 | CMDISCH_ITS ---
Date of service: 10/28/24 Time of Service: 12:18 LACE Index Scoring Tool Questions: Length of Stay (in days): 4 - 6 Was the patient admitted via the E.D.?: Yes Comorbidities: Dementia E.D. Visits: 5 Answers: Total Score: 14 Risk of Readmission: High Risk Care Management Discharge Plan Reason for Hospitalization: Dementia Discharge Plan: Isaura is being discharged to SNF for STR. [facility] w/[facility] van will provide transportation. Isaura will follow up with her community providers and discharge plan of care as discussed. Patient/Family Education Needs: Review discharge instructions and plan to follow up after discharge. Review ask me three. Services Needed at Discharge: Residential Facility ([facility] coordinated by [facility]) and Transportation ([facility] coordinated by [facility]) SDOH Health Related Social Needs: Health related social needs inadequate housing (Z59.1) , housing instability, housed, with risk of homelessness (Z59.811), problems related to housing/economic circumstances (Z59.89), problems with daily activities (Z73.9) Health related social needs details homeless Health related social needs details: homeless Referrals and interventions: [facility] referral
--- NOTE | 2024-10-28 16:00 | CHAPLAIN ---
Isaura was up in the chair watching the [employer] on TV when stopped in. She told me right away that she's going to the [facility] today and she wanted to go to that other place, but I'm going to the [facility]. She said there are two people that she doesn't want to visit her at the [facility] because they were mean to her and I suggested she let the [facility] staff know about her preference. Isaura said she'll have her own room and at TV, so she was happy about that. She likes to watch the [employer] and [employer]. She also talked about her sister and boyfriend who have and said she doesn't have any family members left. She asked if I, or the Care Managers or the Hospitalist go to the [facility] and if we'd see her there. I let her know that we're not part of the [facility] staff but that there will social workers and medical staff there to care for her.
--- NOTE | 2024-10-30 10:07 | NUR.NOTE ---
multiple accesses to this chart for follow up with Crystal Collier Note:
== END 2024-10-28 13:17 | disposition skilled nursing facility (03) ==
LOC: ER 10-24 12:22 → MS 10-24 13:19
PROVIDERS: Nurse Practitioner Acute Care; Nurse Practitioner Family; Admitting Provider Family Medicine; Emergency Provider Emergency Medicine; PCP Nurse Practitioner Family; Responsible Provider Nurse Practitioner Acute Care; Visit Provider Family Medicine
DX: R41.82 Altered mental status, unspecified (principal); D72.829 Elevated white blood cell count, unspecified; F03.90 Unspecified dementia, unspecified severity, without behavioral disturbance, psychotic disturbance, mood disturbance, and anxiety; R82.90 Unspecified abnormal findings in urine; R29.6 Repeated falls; I67.89 Other cerebrovascular disease; Z59.00 Homelessness unspecified; N39.3 Stress incontinence (female) (male); E11.9 Type 2 diabetes mellitus without complications; E78.5 Hyperlipidemia, unspecified; G47.9 Sleep disorder, unspecified; G25.0 Essential tremor; Z79.899 Other long term (current) drug therapy; Z60.4 Social exclusion and rejection; I10 Essential (primary) hypertension; F81.9 Developmental disorder of scholastic skills, unspecified; Z66 Do not resuscitate; F32.A Depression, unspecified; Z80.0 Family history of malignant neoplasm of digestive organs; D64.9 Anemia, unspecified; R41.3 Other amnesia; D50.9 Iron deficiency anemia, unspecified; K59.00 Constipation, unspecified; Z59.9 Problem related to housing and economic circumstances, unspecified
CPT/HCPCS: 00123; 36415; 36416; 80048; 80307; 82962; 85027; 94640; 96127; 97110; 97162; 97530; 99285; 80320; 80329; 81003; 81015; 84443; 85025; 87086; 94664; 99223; 99233; 99239; G0378; J3490

== ENCOUNTER 2024-11-10 18:03 | Outpatient (REF) | payer MEDICARE, MEDICAID, SELFPAY ==
[2024-11-10 18:01] LABS: Abs Immature Grans 0.03 10^3/uL (0.0-0.06); Absolute Basophil Count 0.05 10^3/uL (0.0-0.2); Absolute Eosinophil Count 0.23 10^3/uL (0.0-0.7); Absolute Lymphocyte Count 1.98 10^3/uL (1.2-3.4); Absolute Monocyte Count 0.78 10^3/uL (0.1-0.8); Absolute Neutrophil Count 7.22 10^3/uL (1.2-6.7); Basophils % 0.5 %; Eosinophils % 2.2 %; HCT 38.8 % (36.0-46.0); HGB 12.4 g/dL (11.2-15.7); Immature Grans % 0.3 %; Lymphocytes % 19.2 %; MCH 26.8 pg (27.0-33.0); MCV 84 fL (80-95); MPV 9.7 fL (8.0-11.0); Monocytes % 7.6 %; Neutrophils % 70.2 %; Platelet Count 277 10^3/uL (130-400); RBC 4.62 10^6/uL (3.93-5.22); RDW 13.8 % (11.7-14.6); RDW-SD 42.3 fL; WBC 10.29 10^3/uL (4.4-10.8)
[2024-11-10 18:39] LABS: ALT 37 U/L (14-59); AST 29 U/L (15-37); Albumin 3.8 g/dL (3.4-5.0); Alkaline Phosphatase 111 U/L (46-116); Anion Gap 5.3 mmol/L (3-11); BUN 15 mg/dL (7-18); Bilirubin, Total 0.4 mg/dL (0.2-1.0); CO2 30.7 mmol/L (21.0-32.0); CREATININE 0.8 mg/dL (0.55-1.02); Calcium 9.3 mg/dL (8.5-10.1); Chloride 101 mmol/L (98-107); Estimated GFR 76.79 (mL/min/1.73m2); Folate 12.6 ng/mL (8.6-20.0); Glucose 100 mg/dL (74-106); Magnesium 1.9 mg/dL (1.8-2.4); NT-proBNP 183 pg/mL (<300); Potassium 4.3 mmol/L (3.5-5.1); Sodium 137 mmol/L (136-145); Total Protein 7.1 g/dL (6.4-8.2)
[2024-11-11 20:50] LABS: Vitamin B12 470 pg/mL (193-986); Vitamin D 25 Total 36 ng/mL (30-100)
== END 2024-11-10 18:04 | disposition home or self-care (01) ==
LOC: LBN 18:03
PROVIDERS: PCP Nurse Practitioner Family; Visit Provider Nurse Practitioner Gerontology
DX: I50.22 Chronic systolic (congestive) heart failure (principal); E55.9 Vitamin D deficiency, unspecified; E87.8 Other disorders of electrolyte and fluid balance, not elsewhere classified
CPT/HCPCS: 80053; 82306; 82607; 82746; 83735; 83880; 84443; 85025

== ENCOUNTER 2025-03-16 19:34 | Outpatient (REF) | payer MEDICARE, MEDICAID, SELFPAY ==
[2025-03-16 19:17] LABS: Abs Immature Grans 0.03 10^3/uL (0.0-0.06); HCT 36.9 % (36.0-46.0); HGB 12.2 g/dL (11.2-15.7); Immature Grans % 0.3 %; MCH 27.9 pg (27.0-33.0); MCHC 33.1 % (32.0-36.0); MCV 84 fL (80-95); MPV 9.1 fL (8.0-11.0); Platelet Count 249 10^3/uL (130-400); RBC 4.38 10^6/uL (3.93-5.22); RDW 13.2 % (11.7-14.6); RDW-SD 41.0 fL; WBC 9.73 10^3/uL (4.4-10.8)
[2025-03-16 19:37] LABS: Hemoglobin A1C 8.2 % (<5.7)
[2025-03-16 20:48] LABS: ALT 48 U/L (14-59); AST 29 U/L (15-37); Albumin 3.7 g/dL (3.4-5.0); Alkaline Phosphatase 116 U/L (46-116); Anion Gap 10.5 mmol/L (3-11); BUN 9 mg/dL (7-18); Bilirubin, Total 0.3 mg/dL (0.2-1.0); CO2 27.5 mmol/L (21.0-32.0); Calcium 9.1 mg/dL (8.5-10.1); Chloride 98 mmol/L (98-107); Estimated GFR 93.55 (mL/min/1.73m2); Glucose 203 mg/dL (74-106); Magnesium 1.7 mg/dL (1.8-2.4); Potassium 4.5 mmol/L (3.5-5.1); Sodium 136 mmol/L (136-145); TSH (W/Ref FT4) 2.42 uIU/mL (0.36-3.74); Total Protein 7.0 g/dL (6.4-8.2)
== END 2025-03-16 19:35 | disposition home or self-care (01) ==
LOC: LBN 19:34
PROVIDERS: Legal Medicine; PCP Student in an Organized Health Care Education/Training Program; Visit Provider Nurse Practitioner Gerontology
DX: R73.03 Prediabetes (principal); R53.82 Chronic fatigue, unspecified
CPT/HCPCS: 80053; 83036; 83735; 84443; 85025